=== PATIENT | female | born 1985 | race Caucasian/White ===

== ENCOUNTER 2022-01-27 14:31 | Outpatient (CLI) | payer BC, SELFPAY ==
--- NOTE | 2022-01-27 15:30 | MR_ITS ---
[address] [address] Phone:?[phone] Fax:?[phone] Referring Physician Information: Linda Wright [address] [facility] [address] Phone:?[phone] Fax:?[phone] Patient:?Luisa Rodriguez D.O.B:?1985 Sex:?Female Phone:?[phone] [facility] MRN:?[id number] Exam Date:?01/27/2022 ? EXAM: MRI of the LEFT ANKLE CLINICAL HISTORY: Left ankle pain. Fall off retaining wall injury 3 weeks ago. No history of previous surgery to the left ankle. COMPARISONS: None available. TECHNICAL: MRI sequences of the left ankle: Axials: PD, T2FS Coronals: PD, T2 Sagittals: PD, T2, STIR Sedation: None Contrast: None FINDINGS: Joints and osseous structures: There is edema-like signal within the medial malleolus and within the adjacent medial aspects of the talar body and neck best seen on sagittal series 5 images 9 through 15. No discrete fracture is seen. There is a large tibiotalar joint effusion with substantial synovitis. There is a moderate posterior subtalar joint effusion with substantial synovitis. No subluxation, dislocation, talar dome osteochondral lesion, or tarsal coalition is seen. Ligaments: Syndesmotic: The anterior inferior, posterior inferior tibiofibular, and inferior transverse ligaments are intact. Anterior talofibular: Complete tear best seen on axial series 3 and 4 images 16 through 19. Calcaneofibular: Essentially complete tear of the calcaneofibular ligament best seen on coronal series 8 images 21 through 26. Posterior talofibular: Intact. Deltoid: Ill-defined moderate grade partial tear of the deep layer of the deltoid ligament best seen on coronal series 8 and 9 images 19 through 23. Spring: Unremarkable. Sinus tarsi: Intact lateral cervical and medial interosseous ligaments. Bifurcate: Intact. Calcaneocuboid: Intact. Lisfranc ligament complex: Intact. Flexor tendons: Posterior tibial: Intact. There is a type I to II accessory navicular. Flexor digitorum longus: Intact. Flexor hallucis longus: Intact. Peroneal tendons: There is moderate tenosynovitis. No tendon rupture is seen. No lateral subluxation. Extensor tendons: Tibialis anterior: Intact. Extensor hallucis longus: Intact. Extensor digitorum longus: Intact. Achilles tendon: Intact. Plantar aponeurosis: Unremarkable. Sinus Tarsi:?The sinus tarsi fat is intact. Tarsal tunnel: Unremarkable. IMPRESSION: 1. Complete tears of the anterior talofibular and calcaneofibular ligaments. 2. Ill-defined moderate grade partial tear of the deep layer of the deltoid ligament. 3. Bone marrow contusions of the medial malleolus and of the adjacent medial aspects of the talar body and neck. 4. Moderate peroneal tenosynovitis. No rupture or lateral subluxation the peroneal tendons. 5. Large tibiotalar joint effusion with substantial synovitis and moderate posterior subtalar joint effusion with substantial synovitis. RCB Electronically signed on 01/28/2022 7:58:00 AM by Arvind Vasquez M.D.
--- OUTSIDE RECORDS SUMMARY | 2022-02-22 12:31 | XMS_ITS | Encounter Summary ---
:1985 Author Organization [facility] Address [address] [place] [address] Care Team Providers Name Role Phone Patricio Palmer M.D. Primary Care Provider Reason for Visit Outpatient (Routine) - Closed Specialty Diagnoses / Procedures Referred By Contact Refer red To Contact Neurology Diagnoses Epilepsy Seizure Not Intractable Without Status Epilepticus (HCC) Pietro Pickett M.D. [place] [address] [place], [place] [phone] Referral ID Status Reason Start Date Expiration Date Visits Requ ested Visits Authorized [id number] Closed 05/25/2021 05/25/2022 1 1 Encounter Details Date Type Department Care Team Description 06/09/2021 Telemedicine Department of Pietro Pickett Epilepsy S eizushay Not Neurology gavino Zuluaga M.D. Intractable Without [place], [place] [address] [place] Status Epilepticus [address] [place], [place] (HCC) [place] [phone] Social History Tobacco Use Types Packs/Day Years Used Date Smoking Tobacco: Every Day Cigarettes 0.5 20 Smokeless Tobacco: Never Alcohol Use Standard Drinks/Week Comments No 0 (1 standard drink = 0.6 oz pure alcoho l) Alcohol Habits Answer Date Recorded How often do you have a drink containing alcohol? Never 06/09/2021 How many drinks containing alcohol do you have on a typical Not asked day when you are drinking? How often do you have six or more drinks on one occasion? Ne omero 12/19/2018 Comment: Not asked Social Isolation Answer Date Recorded In a typical week, how many times do you More than three terry es a week 06/09/2021 talk on the phone with family, friends, or neighbors? How often do you get together with friends More than three t imes a week 06/09/2021 or relatives? How often do you attend spiritism or 1 to 4 times per year 05/18 taoism services? Do you belong to any clubs or No 06/09/2021 organizations such as spiritism groups, unions, fraternal or athletic groups, or school groups? How often do you attend meetings of the Never 06/09/2021 clubs or organizations you belong to? Are you now , , , 06/09/2021 , never or living with a partner? Physical Activity Answer Date Recorded On average, how many days per week do you engage in moderate to 3 days 06/09/2021 strenuous exercise (like walking fast, running, jogging, dancing, swimming, biking, or other activities that cause a light or heavy sweat)? On average, how many minutes do you engage in exercise at th is 30 min 06/09/2021 level? Stress Answer Date Recorded Do you feel stress - tense, restless, nervous, or Only a lit tle 06/09/2021 anxious, or unable to sleep at night because your mind is troubled all the time - these days? Financial Resource Strain Answer Date Recorded How hard is it for you to pay for the very basics like Not v julia hard 06/09/2021 food, housing, medical care, and heating? Intimate Partner Violence Answer Date Recorded Within the last year, have you been afraid of your partner o r No 04/20/2020 ex-partner? Within the last year, have you been humiliated or emotionall y No 04/20/2020 abused in other ways by your partner or ex-partner? Within the last year, have you been kicked, hit, slapped, or No 04/20/2020 otherwise physically hurt by your partner or ex-partner? Within the last year, have you been raped or forced to have any No 04/20/2020 kind of sexual activity by your partner or ex-partner? Food Insecurity Answer Date Recorded Within the past 12 months, you worried that your food would Never true 06/09/2021 run out before you got money to buy more. Within the past 12 months, the food you bought just didn't N ever true 06/09/2021 last and you didn't have money to get more. Transportation Needs Answer Date Recorded In the past 12 months, has lack of transportation kept you f rom No 06/09/2021 medical appointments or from getting medications? In the past 12 months, has lack of transportation kept you f rom No 06/09/2021 meetings, work, or getting things needed for daily living? Housing Stability Answer Date Recorded In the last 12 months, was there a time when you were not ab le No 06/09/2021 to pay the mortgage or rent on time? In the last 12 months, how many places have you lived? 2 06/09/2021 In the last 12 months, was there a time when you did not hav e a No 06/09/[address] to [address] or slept in a fci (including now)? Education Answer Date Recorded What is the highest level of school you have GED or equivale nt 12/19/2018 completed or the highest degree you have received? Sex Assigned at Date Recorded Female 06/09/2021 2:09 PM AIRCONDITIONING ENGINEER documented as of this encounter Progress Notes Pietro Pickett M.D. - 06/09/2021 2:00 PM CST Video Visit This visit was conducted with use of computer audio-visual technology in lieu of patient's ability to attend clinic. Provider was located at [facility] Patient was located in their home CHIEF COMPLAINT / REASON FOR VISIT Return to follow-up seizure disorder INTERIM HISTORY Patient is still having seizures since last visit. Holly is still experiencing seizures about once per month. She has bilateral tonic-clonic seizures that have no aura. These have resulted in lacerations but fortunately no fractures. They tend to occur in the evening after the kids are in bed and she is relaxing ironically. PHYSICAL EXAM: Alert and oriented, no aphasia, no acute distress REVIEW OF SYSTEMS Neurological: Positive for seizures. The following systems were negative: Constitutional, Skin, Eyes, ENT, CV, Respiratory, GI, , Hematologic, Musculoskeletal, Psych TEST RESULTS Blood tests: None this visit Other: None this visit ASSESSMENT / PLAN #1 Epilepsy Seizure Not Intractable Without Status Epilepticus (HCC) We had a long discussion today about possible options. When she was implanted for stereo EEG she wasfound to have widespread left hemispheric onset seizures. She however did respond to subthreshold stimulation. It was thought she would be a candidate for combined stimulation with CS CS plus thalamic DBS stimulation. While being considered for this she started using medical cannabis and improved significantly so this was put on hold. However her seizures have come back since then. PLAN: We had a long discussion about treatment options. A new medication, cenobamate/Xcopri is available now which could potentially be helpful for her seizures. I discussed side effects of it which include dizziness and tiredness, and need for slow titration due to potential risk of allergic reaction. Also discussed vagus nerve stimulation and deep brain stimulation. She will consider these and discuss these further with her . She will notify me if she wants to pursue either. I sent new prescriptions for her lacosamide and lamotrigine to her pharmacy of choice. TIME: Time spent face to face, coordinating care, counseling and performing clinical documentation was 35 minutes. ONDITIONING ENGINEER documented in this encounter Plan of Treatment Not on filedocumented as of this encounter Visit Diagnoses Diagnosis Epilepsy Seizure Not Intractable Without Status Epilepticus (HCC) documented in this encounter Care Teams Auto Vinyl Top Installer Relationship Specialty Start Date End Date Patricio Palmer M.D. PCP - General Family Medicine 12/18/[address] [place] [phone] documented as of this encounter
--- OUTSIDE RECORDS SUMMARY | 2022-02-22 12:31 | XMS_ITS | Encounter Summary ---
:1985 Author Organization [facility] Address [address] [place] [address] Care Team Providers Name Role Phone Patricio Palmer M.D. Primary Care Provider Encounter Details Date Type Department Care Team Description 05/27/2021 Orders Only Department [place] [address] [facility] [address] [place], [place] [address] [place], [place] [phone] (Wo rk) Social History Tobacco Use Types Packs/Day Years Used Date Smoking Tobacco: Every Day Cigarettes 0.5 Smokeless Tobacco: Never Alcohol Use Standard Drinks/Week [...] or relatives? How often do you attend hoahaoism or 1 to 4 times per year 05/18 denominational services? Do you belong to any clubs or No 06/09/2021 organizations such as hoahaoism groups, unions, fraternal or athletic groups, or [...] place to sleep or slept in a residential (including now)? Education Answer Date Recorded What is the highest level of school you have GED or equivale nt 12/19/2018 completed or the highest degree you have received? Sex Assigned at Date Recorded Female 06/09/2021 2:09 PM PLANT MAINTENANCE MECHANIC documented as of this encounter Plan of Treatment Not on filedocumented as of this encounter Visit Diagnoses Not on filedocumented in this encounter Additional Health Concerns Infection Onset Date Last Indicated Resolved Time COVID19 04/29/2021 04/29/2021 05/28/2021 4:49 AM PLANT MAINTENANCE MECHANIC documented as of this encounter Care Teams Insulation And Flooring Assembler Relationship Specialty Start Date End Date Patricio Palmer M.D. PCP - General Family Medicine 12/18/[address] [place] [phone] documented as of this encounter
--- OUTSIDE RECORDS SUMMARY | 2022-02-22 12:31 | XMS_ITS | Encounter Summary ---
:1985 Author Organization [facility] Address [address] [place] [address] Care Team Providers Name Role Phone Patricio Palmer M.D. Primary Care Provider Encounter Details Date Type Department Care Team Description 05/26/2021 Orders Only Pharmacy Prior Auth RO Elsewhere, Pcp [phone] Social History Tobacco Use Types Packs/Day Years [...] or relatives? How often do you attend mormon or 1 to 4 times per year 05/18 advent services? Do you belong to any clubs or No 06/09/2021 organizations such as mormon groups, unions, fraternal or athletic groups, or [...] place to sleep or slept in a [facility] (including now)? Education Answer Date Recorded What is the highest level of school you have GED or equivale nt 12/19/2018 completed or the highest degree you have received? Sex Assigned at Date Recorded Female 06/09/2021 2:09 PM BACTERIOLOGIST SOIL documented as of this encounter Plan of Treatment Not on filedocumented as of this encounter Visit Diagnoses Not on filedocumented in this encounter Additional Health Concerns Infection Onset Date Last Indicated Resolved Time COVID19 04/29/2021 04/29/2021 05/28/2021 4:49 AM BACTERIOLOGIST SOIL documented as of this encounter Care Teams Waxer Tender Relationship Specialty Start Date End Date Patricio Palmer M.D. PCP - General Family Medicine 12/18/[address] [place], [place] [address] [phone] documented as of this encounter
--- OUTSIDE RECORDS SUMMARY | 2022-02-22 12:31 | XMS_ITS | Encounter Summary ---
:1985 Author Organization [facility] Address [address] [place] [address] Care Team Providers Name Role Phone Patricio Palmer M.D. Primary Care Provider Encounter Details Date Type Department Care Team Description 05/12/2021 Immunization Department of Patricia Welch M.D. Medicine, [facility], in [address] [place] [phone] [place] [address] [place] [phone] Social History Tobacco Use Types Packs/Day Years [...] or relatives? How often do you attend caodaism or 1 to 4 times per year 05/18 bahai services? Do you belong to any clubs or No 06/09/2021 organizations such as caodaism groups, unions, fraternal or athletic groups, or [...] place to sleep or slept in a prison (including now)? Education Answer Date Recorded What is the highest level of school you have GED or equivale nt 12/19/2018 completed or the highest degree you have received? Sex Assigned at Date Recorded Female 06/09/2021 2:09 PM BLAST FURNACE SUPERVISOR documented as of this encounter Plan of Treatment Not on filedocumented as of this encounter Visit Diagnoses Not on filedocumented in this encounter Additional Health Concerns Infection Onset Date Last Indicated Resolved Time COVID19 04/29/2021 04/29/2021 05/19/2021 4:45 AM CDT documented as of this encounter Care Teams Time Clock Repairer Relationship Specialty Start Date End Date Patricio Palmer M.D. PCP - General Family Medicine 12/18/[address] [place] [phone] documented as of this encounter
--- OUTSIDE RECORDS SUMMARY | 2022-02-22 12:31 | XMS_ITS | Encounter Summary ---
:1985 Author Organization [facility] Address [address] [place] [address] Care Team Providers Name Role Phone Patricio Palmer M.D. Primary Care Provider Encounter Details Date Type Department Care Team Description 05/28/2021 Orders Only Pharmacy Prior Auth RO Patricio Palmer M.D. [phone] [place] [phone] (Wo rk) Social History Tobacco Use Types [...] or relatives? How often do you attend jainism or 1 to 4 times per year 05/18 cheondoism services? Do you belong to any clubs or No 06/09/2021 organizations such as jainism groups, unions, fraternal or athletic groups, or [...] place to sleep or slept in a intermediate (including now)? Education Answer Date Recorded What is the highest level of school you have GED or equivale nt 12/19/2018 completed or the highest degree you have received? Sex Assigned at Date Recorded Female 06/09/2021 2:09 PM PLATFORM ENGINEER documented as of this encounter Plan of Treatment Not on filedocumented as of this encounter Visit Diagnoses Not on filedocumented in this encounter Additional Health Concerns Infection Onset Date Last Indicated Resolved Time COVID19 04/29/2021 04/29/2021 05/28/2021 4:49 AM PLATFORM ENGINEER documented as of this encounter Care Teams Roller Skate Assembler Relationship Specialty Start Date End Date Patricio Palmer M.D. PCP - General Family Medicine 12/18/[address] [place] [phone] documented as of this encounter
--- OUTSIDE RECORDS SUMMARY | 2022-02-22 12:31 | XMS_ITS | Encounter Summary ---
:1985 Author Organization [facility] Address [address] [place] [address] Care Team Providers Name Role Phone Patricio Palmer M.D. Primary Care Provider Encounter Details Date Type Department Care Team Description 06/01/2021 Hospital Encounter Department of Pietro Pickett epsmaru Seizure Not Laboratory Medicine Pippa Zuluaga Intractable Without in [place], [address] [facility] Status Epilepticus [place], [place] ([facility]) [address] [facility] [address] [place], [place] [phone] (Work) [phone] Social History Tobacco Use Types Packs/Day Years [...] or relatives? How often do you attend cheondoism or 1 to 4 times per year 05/18 rastafarian services? Do you belong to any clubs or No 06/09/2021 organizations such as cheondoism groups, unions, fraternal or athletic groups, or [...] place to sleep or slept in a halfway (including now)? Education Answer Date Recorded What is the highest level of school you have GED or equivale nt 12/19/2018 completed or the highest degree you have received? Sex Assigned at Date Recorded Female 06/09/2021 2:09 PM BOTTLER documented as of this encounter Medications at Time of Discharge Medication Sig Dispensed Refills Start Date End Date ACETAMINOPHEN ORAL Take 500 mg by mouth 0 016 as needed. Takes 4 tablet (2,000mg total) by mouth as needed for headaches albuterol (ProAir HFA) Inhale 2 puffs every 25.5 g 3 08/2019 90 mcg/actuation inhaler 4 (four) hours as needed for wheezing or shortness of breath. cyclobenzaprine Take 1 tablet (10 mg 15 tablet 0 09/01/2020 (FLEXERIL) 10 mg tablet total) by mouth at bedtime as needed for muscle spasms for up to 20 days. ibuprofen (ADVIL,MOTRIN) Take 1 tablet (800 90 tablet 0 800 mg tablet mg total) by mouth 3 (three) times a day as needed for pain (pain). lamoTRIgine (LaMICtal) Take 2 tablets (200 120 tablet 5 07/18 100 mg tablet mg total) by mouth 2 (two) times a day. medical cannabis capsule Take by mouth as needed. Pt does not know do [place] 0 THC component: mg CBD component: mg SUMAtriptan (IMITREX) 50 Take 1 tablet (50 mg 9 tablet 5 0 12/19/2018 mg tablet total) by mouth once as needed for migraine for up to 1 dose. May repeat one time after 2 hours if needed. amoxicillin-pot Take 1 tablet by 20 tablet 0 03/30/2021 clavulanate (AUGMENTIN) mouth 2 (two) times 875-125 mg per tablet a day. lacosamide (Vimpat) 100 Take 1 tablet (100 60 tablet 3 11/03/202106/09/2021 mg tabletIndications: mg total) by mouth 2 Epilepsy Seizure Not (two) times a day. Intractable Without Status Epilepticus (HCC) lamoTRIgine (LaMICtal) Take 200 mg by mouth 11 06/09/2021 100 mg tablet 2 (two) times a day. lamoTRIgine (LaMICtal) TAKE 2 TABLETS (200 360 tablet 3 07/1806/09/2021 100 mg tablet MG TOTAL) BY MOUTH 2 (TWO) TIMES A DAY. mupirocin (BACTROBAN) 2 Apply 1 application 10 g 0 01/202006/04/2021 % nasal ointment to each nostril 2 (two) times a day. 1/2 tube each nostril twice daily. Press and massage after applying naproxen (NAPROSYN) 500 Take 1 tablet (500 20 tablet 0 01/202006/04/2021 mg tablet mg total) by mouth 2 (two) times a day with meals for 10 days. documented as of this encounter Plan of Treatment Not on filedocumented as of this encounter Procedures Procedure Name Priority Date/Time Associated Diagnosis Comme nts LACOSAMIDE, S Routine 06/01/2021 8:57 AM Epilepsy Seizure Not Results for this BOTTLER Intractable Without procedur e are in Status Epilepticus the resul ts (HCC) section. documented in this encounter Results Lacosamide (Vimpat), Level (06/01/2021 8:57 AM BOTTLER) P athologist Signature Lacosamide, S 9.6 1.0 - 10.0 06/02/2021 SDSC mcg/mL 10:14 AM BOTTLER Comment: ----ADDITIONAL INFORMATION---- This test was developed and its performa nce characteristics determined by [facility] in a manner consistent with CLIA requirements. This test has not been cleared or approved by the [place] and Drug Administration. Specimen Anatomical Collection Method Collection Time Receive d Time (Source) Location / / Volume Laterality Blood (Blood, 06/01/2021 8:57 AM 06/02/20 21 7:39 Venous) BOTTLER AM BOTTLER Pietro Pickett M.D. LAB BLOOD NON ADD-ON Performing Organization Address City/State/ZIP Code Phon e Number [facility] [address] [place], [place] [address] [address] [facility] [place] [address] Laboratory Medicine and Pathology [address] [place] documented in this encounter Visit Diagnoses Diagnosis Epilepsy Seizure Not Intractable Without Status Epilepticus (HCC) documented in this encounter Care Teams Alarm Signaler Relationship Specialty Start Date End Date Patricio Palmer M.D. PCP - General Family Medicine 12/18/[address] [place] [phone] documented as of this encounter
--- OUTSIDE RECORDS SUMMARY | 2022-02-22 12:31 | XMS_ITS | Encounter Summary ---
:1985 Author Organization [facility] Address [address] [place] [address] Care Team Providers Name Role Phone Patricio Palmer M.D. Primary Care Provider Reason for Referral Outpatient (Routine) - Closed Specialty Diagnoses / Procedures Referred By Contact Refer red To Contact Neurology Diagnoses Epilepsy Seizure Not Intractable Without Status Epilepticus (HCC) Pietro Pickett M.D. [facility] [address] [place] [address] Referral ID Status Reason Start Date Expiration Date Visits Requ ested Visits Authorized [id number] Closed 05/25/2021 05/25/2022 1 1 FACTURING CONTROLLER Reason for Visit Reason Comments Med Refill Encounter Details Date Type Department Care Team Description 05/25/2021 Refill Department of Family Medicine, Patricio Villasenor M.D. [facility] [address] [phone] [place] [address] [place] [address] [phone] Social History Tobacco Use Types Packs/Day Years [...] or relatives? How often do you attend faith or 1 to 4 times per year 05/18 evangelical services? Do you belong to any clubs or No 06/09/2021 organizations such as faith groups, unions, fraternal or athletic groups, or [...] at Date Recorded Female 06/09/2021 2:09 PM MANUFACTURING CONTROLLER documented as of this encounter Plan of Treatment Scheduled Referrals Name Type Priority Associated Diagnoses Order S [facility] Neurology office Outpatient Referral Routine Epilepsy Seizure Not Expected: visit (clinic) Intractable Without 2020 Status Epilepticus (Approxim ate), ([facility]) Expires: 05/25/2024 documented as of this encounter Results Lacosamide (Vimpat), Level (06/01/2021 8:57 AM MANUFACTURING CONTROLLER) athologist Signature Lacosamide, S 9.6 1.0 - 10.0 06/02/2021 SDSC mcg/mL 10:14 AM MANUFACTURING CONTROLLER Comment: ----ADDITIONAL INFORMATION---- This test was developed and its performa nce characteristics determined by [facility] in a manner consistent with CLIA requirements. This test has not been cleared or approved by the [place] and Drug Administration. Specimen Anatomical Collection Method Collection Time Receive d Time (Source) Location / / Volume Laterality Blood (Blood, 06/01/2021 8:57 AM 06/02/20 7:39 Venous) MANUFACTURING CONTROLLER AM MANUFACTURING CONTROLLER Pietro Pickett M.D. LAB BLOOD NON ADD-ON Performing Organization Address City/State/ZIP Code Phon e Number [facility] [address] [place] [address] [facility] [place] [address] Laboratory Medicine and Pathology [address] [place] documented in this encounter Visit Diagnoses Diagnosis Epilepsy Seizure Not Intractable Without Status Epilepticus (HCC) documented in this encounter Care Teams Real Estate Processor Relationship Specialty Start Date End Date Patricio Palmer M.D. PCP - General Family Medicine 12/18/[address] [place] [phone] documented as of this encounter
--- OUTSIDE RECORDS SUMMARY | 2022-02-22 12:31 | XMS_ITS | Encounter Summary ---
:1985 Author Organization [facility] Address [address] [place] [address] Care Team Providers Name Role Phone Patricio Palmer M.D. Primary Care Provider Encounter Details Date Type Department Care Team Description 05/24/2021 Orders Only Department [place] [address] [facility] [address] [place], [place] [address] [place], [place] [phone] (Wo rk) Social History Tobacco Use Types [...] 1 to 4 times per year 05/18 caodaism services? Do you belong to any clubs [...] place to sleep or slept in a penitentiary (including now)? Education Answer Date Recorded What is the highest level of school you have GED or equivale nt 12/19/2018 completed or the highest degree you have received? 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 PCP - General Family Medicine 12/18/[address] [place] [phone] documented as of this encounter
--- OUTSIDE RECORDS SUMMARY | 2022-02-22 12:31 | XMS_ITS | Encounter Summary ---
:1985 Author Organization [facility] Address [address] [place] [address] Care Team Providers Name Role Phone Patricio Palmer M.D. Primary Care Provider Reason for Visit Reason Comments Pre-visit Intake Encounter Details Date Type Department Care Team Description 06/04/2021 Clinical Communication Visit Review in Pr e-visit Intake [place], [place] [address] [place] [address] Social History Tobacco Use Types Packs/Day Years [...] or relatives? How often do you attend yarsanism or 1 to 4 times per year 05/18 shinto services? Do you belong to any clubs or No 06/09/2021 organizations such as yarsanism groups, unions, fraternal or athletic groups, or [...] at Date Recorded Female 06/09/2021 2:09 PM PLACING JUDGE documented as of this encounter Plan of Treatment Not on filedocumented as of this encounter Visit Diagnoses Not on filedocumented in this encounter Care Teams Waxer Tender Relationship Specialty Start Date End Date Patricio Palmer M.D. PCP - General Family Medicine 12/18/[address] [place] [phone] documented as of this encounter
--- OUTSIDE RECORDS SUMMARY | 2022-02-22 12:31 | XMS_ITS | Encounter Summary ---
:1985 Author Organization [facility] Address [address] [place] [address] Care Team Providers Name Role Phone Patricio Palmer M.D. Primary Care Provider Reason for Visit Reason Comments Patient Education Encounter Details Date Type Department Care Team Description 05/01/2021 Clinical Department of Yaritza Baca Patient Ed ucation Communication [facility] I., R.N. in [address] [place] [phone] Social History Tobacco Use Types Packs/Day Years [...] or relatives? How often do you attend alevism or 1 to 4 times per year 05/18 adventist services? Do you belong to any clubs or No 06/09/2021 organizations such as alevism groups, unions, fraternal or athletic groups, or [...] place to sleep or slept in a skilled nursing (including now)? Education Answer Date Recorded What is the highest level of school you have GED or equivale nt 12/19/2018 completed or the highest degree you have received? 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 PCP - General Family Medicine 12/18/[address] [place] [address] [place] [phone] documented as of this encounter
--- OUTSIDE RECORDS SUMMARY | 2022-02-22 12:31 | XMS_ITS | Encounter Summary ---
:1985 Author Organization [facility] Address [address] [place] [address] Care Team Providers Name Role Phone Patricio Palmer M.D. Primary Care Provider Encounter Details Date Type Department Care Team Description 12/21/2021 Orders Only [facility] Mirian Tobar, Screening Lipid D.O., M.B.A. [address] [place] [phone] (Wo rk) Social History Tobacco Use Types [...] place to sleep or slept in a alf (including now)? Education Answer Date Recorded What is the highest level of school you have GED or equivale nt 12/19/2018 completed or the highest degree you have received? 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 PCP - General Family Medicine 12/18/[address] [place] [phone] documented as of this encounter
--- OUTSIDE RECORDS SUMMARY | 2022-02-22 12:31 | XMS_ITS | Encounter Summary ---
:1985 Author Organization [facility] Address [address] [place] [address] Care Team Providers Name Role Phone Patricio Palmer M.D. Primary Care Provider Encounter Details Date Type Department Care Team Description 05/25/2021 Orders Only Pharmacy Prior Auth RO Patricio Palmer M.D. [phone] [place] [phone] (Wo rk) Social History Tobacco [...] or relatives? How often do you attend religion or 1 to 4 times per year 05/18 congregation services? Do you belong to any clubs or No 06/09/2021 organizations such as religion groups, unions, fraternal or athletic groups, or [...] place to sleep or slept in a senior care (including now)? Education Answer Date Recorded What is the highest level of school you have GED or equivale nt 12/19/2018 completed or the highest degree you have received? Sex Assigned at Date Recorded Female 06/09/2021 2:09 PM MANAGER ORACLE RETAIL documented as of this encounter Plan of Treatment Not on filedocumented as of this encounter Visit Diagnoses Not on filedocumented in this encounter Additional Health Concerns Infection Onset Date Last Indicated Resolved Time COVID19 04/29/2021 04/29/2021 05/28/2021 4:49 AM MANAGER ORACLE RETAIL documented as of this encounter Care Teams Brim Raiser Relationship Specialty Start Date End Date Patricio Palmer M.D. PCP - General Family Medicine 12/18/[address] [place] [phone] documented as of this encounter
--- OUTSIDE RECORDS SUMMARY | 2022-02-22 12:31 | XMS_ITS | Clinical Summary ---
:1985 Author Organization [facility] Address [address] [place] [address] Care Team Providers Name Role Phone Patricio Palmer M.D. Primary Care Provider Source Comments Patient records contain information from all sites at [facility]. For routine questions regarding patient records, call [phone] during business hours, M-F 8:00 AM - 5:00 PM Central Time. Record requests for emergency care only can be directed to [phone] at any time.[facility] Allergies Active Allergy Reactions Severity Noted Date Comments Tramadol Hives, Rash 08/19/2016 Medications Medication Sig Dispensed Refills Start Date End Date Status ACETAMINOPHEN ORAL Take 500 mg by 0 11/16/2015 Active mouth as needed. Takes 4 tablet (2,000mg total) by mouth as needed for headaches lamoTRIgine (LaMICtal) Take 2 tablets 120 tablet 5 08/10/2018 Active 100 mg tablet (200 mg total) by mouth 2 (two) times a day. SUMAtriptan (IMITREX) Take 1 tablet 9 tablet 5 12/19/2018 Active 50 mg tablet (50 mg total) by mouth once as needed for migraine for up to 1 dose. May repeat one time after 2 hours if needed. medical cannabis Take by mouth as needed. Pt does not know dosage 0 Active capsule THC component: mg CBD component: mg albuterol (ProAir HFA) Inhale 2 puffs 25.5 g 3 09/16/2019 Active 90 mcg/actuation every 4 (four) inhaler hours as needed for wheezing or shortness of breath. ibuprofen Take 1 tablet 90 tablet 0 11/05/2019 Activ e (ADVIL,MOTRIN) 800 mg (800 mg total) tablet by mouth 3 (three) times a day as needed for pain (pain). cyclobenzaprine Take 1 tablet 15 tablet 0 09/01/2020 Active (FLEXERIL) 10 mg (10 mg total) by tablet mouth at bedtime as needed for muscle spasms for up to 20 days. lamoTRIgine (LaMICtal) Take 2 tablets 120 tablet 11 06/09/2021 06/09/2022 Active 100 mg (200 mg total) tabletIndications: by mouth 2 (two) Epilepsy Seizure Not times a day. Intractable Without Status Epilepticus (HCC) lacosamide (VIMPAT) TAKE 1 TABLET 60 tablet 5 11/24/202105/23 Active 100 mg (100 MG TOTAL) tabletIndications: BY MOUTH 2 (TWO) Epilepsy Seizure Not TIMES A DAY. 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 Localized Onset Intractable Without Status Epilepticus Overview: Added automatically from request for clarita alem [id number] Nicotine Dependence Cigarettes 01/06/2012 Alcoholism And Drug Addiction In Family 01/06/2012 Overview: Mother Other Psychoactive Substance Mild Use Disorder (Abuse) In Remission 02/19/2007 Overview: Overview: Last use 2002 Resolved Problems Problem Noted Date Resolved Date Epilepsy And Recurrent Seizures NOS 09/24/2018 06/11/2018 Epilepsy Seizure Not Intractable Without Status Epilepticus 08/10/2018 12/19/2018 Overview: Added automatically from request for clarita alem [id number] Focal Epilepsy Symptomatic Intractable Without Status 201712/19/2018 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 Screening Lipid 11/24/2021 Refill Neurology Pietro Pickett M.D. Med Refill from Last 3 Months Immunizations Name Administration Dates Next Due Influenza, Unspecified 05/26/2008 Td (Adult), adsorbed 03/07/2003 Td Preservative Free (TENIVAC, 01/21/2020 DECAVAC) Tdap 09/24/2014, 10/26/2012, 01/22/2011, 03/07/2003 influenza vaccine quad 05/12/2021, 05/18/2020, 09/20/2019 (FLUZONE/FLUARIX) (6 months and older)(PF) Family History Medical History Relation Name Comments Alcohol abuse Brother Alvaro Seizures Brother Alvaro Alcohol abuse Mother Mary hernández Seizures Mother Mary hernández Relation Name Status Comments Brother Alvaro Alive Mother Mary hernández Alive Social History Tobacco Use Types Packs/Day Years Used Date Smoking Tobacco: Every Day Cigarettes 0.5 20 Smokeless Tobacco: Never Tobacco Cessation: Ready to Quit: No; Co unseling Given: No Alcohol Use Standard Drinks/Week Comments No 0 [...] or relatives? How often do you attend sabianist or 1 to 4 times per year 05/18 orthodoxy services? 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 Last Filed Vital Signs Vital Sign Reading Time Taken Comments Blood Pressure 112/76 07/31/2020 10:37 AM ASSOCIATE SALES MANAGER Pulse 80 09/01/2020 9:21 AM ASSOCIATE SALES MANAGER Temperature 36.9 ??C (98.4 ??F) 09/01/2020 9:21 AM ASSOCIATE SALES MANAGER Respiratory Rate 16 07/31/2020 10:37 AM ASSOCIATE SALES MANAGER Oxygen Saturation 98% 01/21/2020 7:07 PM CDT Inhaled Oxygen Concentration - - Weight 63.2 kg (139 lb 5.3 oz) 09/01/2020 9:21 AM ASSOCIATE SALES MANAGER Height 157.5 cm (5' 2) 09/01/2020 9:21 AM ASSOCIATE SALES MANAGER Body Mass Index 25.48 09/01/2020 9:21 AM ASSOCIATE SALES MANAGER Plan of Treatment Health Maintenance Due Date Last Done Comments Hepatitis B Vaccines (1 of 3 - 1985 3-dose series) Hepatitis C Screening 1985 COVID-19 Vaccine (#1) 1984 Hepatitis A Vaccines (1 of 2 - 01/14/1985 Risk 2-dose series) Pneumococcal vaccine (0-64 years) 01/14/1990 (1 - PCV) Cervical Cancer Screening 10/16/2019 10/15/2014 (Performed elsewhere), 04/04/2012 Fasting Lipid Panel 11/05/2020 11/06/2015 Tobacco Cessation counseling 04/20/2021 04/20/2020 Depression Screening (Annual 07/17/2021 PHQ-2) Influenza Vaccine (#1) 2022 05/12/2021, 05/18/2020, 09/20/2019, Additional history exists DTaP,Tdap,and Td Vaccines (5 - Td 01/20/2030 01/21/2020, , or Tdap) 10/26/2012, Additional history exists HIV Screening Completed 02/18/2017, 06/03/2014, 09/23/2013, Additional history exists Medical Devices Explanted Type Area Workforce Planning Analyst Device Identifier Shelf Model / Expiration Serial / Date Lot Elctrd Eeg 16 Contct 54.5 - [id number] - [id number] Electrode [facility] Corporation [id number] 08/30/202216 / Implanted: Qty: 1 on 09/24/2018 by Zan Wise M.D. at [facility] [id number] / Explanted: Qty: 1 on 09/30/2018 at [facility] [id number] Insurance Payer Benefit Plan Subscriber ID Effective Phone Address Typ e / Group Dates BLUE CROSS BCBS BLUE [id number] 2021-Pres ATTN: Radha hassan HMO BLUE SHIELD PLUS HMO ent CONSUMER [facility] [place] [address] [address] [place] [address] Advance Directives For more information, please contact: [phone] Latest Code Status on File Code Status Date Activated Date Inactivated Comments Full Code 09/24/2018 1:39 PM 10/01/2018 12:45 PM Full Code: Not Discussed Due to: Patient not available Full Code 04/12/2018 3:23 PM 04/17/2018 2:55 PM Full Code: Discussed Care Teams Director Of Undergraduate Admissions Relationship Specialty Start Date End Date Patricio Palmer M.D. PCP - General Family Medicine 12/18/[address] [place] [address] EMEKA Davidson [phone]
--- OUTSIDE RECORDS SUMMARY | 2022-02-22 12:31 | XMS_ITS | Encounter Summary ---
:1985 Author Organization [facility] Address [address] [place] [address] Care Team Providers Name Role Phone Patricio Palmer M.D. Primary Care Provider Encounter Details Date Type Department Care Team Description 10/29/2021 Orders Only Department of Family Suad Avendano AP RN, Medicine, [facility], in C.N[facility] P., M.S.N. [address] [place] [address] [place] [address] [phone] Social History Tobacco Use Types Packs/Day Years [...] or relatives? How often do you attend congregational or 1 to 4 times per year 05/18 amish services? Do you belong to any clubs or No 06/09/2021 organizations such as congregational groups, unions, fraternal or athletic groups, or [...] place to sleep or slept in a fpc (including now)? Education Answer Date Recorded What is the highest level of school you have GED or equivale nt 12/19/2018 completed or the highest degree you have received? 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 PCP - General Family Medicine 12/18/[address] [place] [phone] documented as of this encounter
--- OUTSIDE RECORDS SUMMARY | 2022-02-22 12:31 | XMS_ITS | Encounter Summary ---
:1985 Author Organization [facility] Address [address] [place] [address] Care Team Providers Name Role Phone Patricio Palmer M.D. Primary Care Provider Encounter Details Date Type Department Care Team Description 05/27/2021 Orders Only Pharmacy Prior Auth RO Elsewhere, Pcp [phone] Social History Tobacco Use Types Packs/Day Years [...] or relatives? How often do you attend sikh or 1 to 4 times per year 05/18 quaker services? Do you belong to any clubs or No 06/09/2021 organizations such as sikh groups, unions, fraternal or athletic groups, or [...] place to sleep or slept in a correction (including now)? Education Answer Date Recorded What is the highest level of school you have GED or equivale nt 12/19/2018 completed or the highest degree you have received? 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 PCP - General Family Medicine 12/18/[address] [place], [place] [address] [place] [phone] documented as of this encounter
--- OUTSIDE RECORDS SUMMARY | 2022-02-22 12:31 | XMS_ITS | Encounter Summary ---
:1985 Author Organization [facility] Address [address] [place] [address] Care Team Providers Name Role Phone Patricio Palmer M.D. Primary Care Provider Reason for Visit Reason Onset Date Comments Testing For Upper Respiratory Virus Symptoms 04/29/2021 Encounter Details Date Type Department Care Team Description 04/29/2021 External Outreach Department of [facility] Juan Bhakta ntact With And Medicine in [place] M.D. (Suspected) [address] To COVID-19 (Primary [address] [place] Dx) JUAN [address] [address] [place], [place] [phone] (Work) [phone] Social History Tobacco Use Types Packs/Day Years [...] or relatives? How often do you attend scientologist or 1 to 4 times per year 05/18 judaism services? Do you belong to any clubs or No 06/09/2021 organizations such as scientologist groups, unions, fraternal or athletic groups, or [...] place to sleep or slept in a half-way (including now)? Education Answer Date Recorded What is the highest level of school you have GED or equivale nt 12/19/2018 completed or the highest degree you have received? Sex Assigned at Date Recorded Female 06/09/2021 2:09 PM EDGING CATCHER documented as of this encounter Progress Notes Mely Aceves R.MBreanna. - 04/29/2021 11:34 AM CDT Encounter created for symptomatic infectious disease screening with possible COVID, Influenza, RSV, and/or Group A Strep testing. documented in this encounter Miscellaneous Notes Result Encounter Note - Domenica Heredia R.N. - 05/27/2021 11:30 AM EDGING CATCHER The patient will be contacted if they are eligible for Monoclonal Antibody Infusion (MASS 1 or greater) and/or Remote Patient Monitoring (MASS 3 or greater). The [place] Team ([facility]) sends general guidance about COVID-19 to all patients by letter or portal, except when a patient is hospitalized or resides in a jail. CCT will call all adult patients at highest risk for severe complications of COVID-19 (MASS 3 or greater), those without an online services account, and those who require an mounter clarinets. Any patient with a MASS score 1 or greater or a COVID-19 score 1 or greater may be at higher risk ofsevere disease. These patients will follow up directly with primary care. The primary care team willdecide if the patient needs a phone call or a follow up portal message to assess symptom severity, provide individualized guidance on symptom monitoring or symptom management, or to reinforce when to se ek care. M[facility] encourages patients to follow up with their PCP with questions, worsening symptoms, or for symptom management. For questions, contact the [place] ([facility]): Pager: [phone] In basket: P RST/[facility]S COVID-19 POSITIVE Covid Care e-consult Components of the Monoclonal Antibody Selection Score (MASS) Compromised Immune System/Transplant = 4 points Chronic Kidney Disease on Dialysis = 4 points Age greater than or equal to 55 and chronic pulmonary disease = 3 points Age greater than or equal to 65 = 2 points Age greater than or equal to = 2 points Diabetes = 2 points Age greater than or equal to 55 AND cardiovascular disease = 2 points Age greater than or equal to 55 and hypertension = 1 point NOTE: At the time of testing, patients are instructed to obtain the result by calling the Categorical result line or by checking the online services account. NG CATCHER Result Encounter Note - Domenica Heredia R.N. - 04/30/2021 10:06 AM CDT The patient will be contacted if they are eligible for Monoclonal Antibody Infusion (MASS 1 or greater) and/or Remote Patient Monitoring (MASS 3 or greater). The [place] [facility] ([facility]) sends general guidance about COVID-19 to all patients by letter or portal, except when a patient is hospitalized or resides in a jail. M[facility] will call all adult patients at highest risk for severe complications of COVID-19 (MASS 3 or greater), those without an online services account, and those who require an mounter clarinets. Any patient with a MASS score 1 or greater or a COVID-19 score 1 or greater may be at higher risk ofsevere disease. These patients will follow up directly with primary care. The primary care team willdecide if the patient needs a phone call or a follow up portal message to assess symptom severity, provide individualized guidance on symptom monitoring or symptom management, or to reinforce when to se ek care. MWC[facility] encourages patients to follow up with their PCP with questions, worsening symptoms, or for symptom management. For questions, contact the [facility] ([facility]): Pager: [phone] In basket: P RST/[facility]S COVID-19 POSITIVE Covid Care e-consult Components of the Monoclonal Antibody Selection Score (MASS) Compromised Immune System/Transplant = 4 points Chronic Kidney Disease on Dialysis = 4 points Age greater than or equal to 55 and chronic pulmonary disease = 3 points Age greater than or equal to 65 = 2 points Age greater than or equal to = 2 points Diabetes = 2 points Age greater than or equal to 55 AND cardiovascular disease = 2 points Age greater than or equal to 55 and hypertension = 1 point NOTE: At the time of testing, patients are instructed to obtain the result by calling the Categorical result line or by checking the online services account. documented in this encounter Plan of Treatment Not on filedocumented as of this encounter Procedures Procedure Name Priority Date/Time Associated Diagnosis Comme nts SARS CORONAVIRUS-2 Routine 04/29/2021 11:36 AM Contact With An d Results for this RNA, V CDT (Suspected) Exposure procedu re are in To COVID-19 the results section. documented in this encounter Results (ABNORMAL) SARS Coronavirus-2 RNA, V Symptomatic (04/29/2021 11:36 AM CDT) [facility] Method Time Signature SARS-CoV-2 Swab, 04/30/2021 MKTO Specimen Nasopharynx 1:12 AM CDT Source SARS CoV-2 Detected (A) Undetected 04/30/2021 MKTO RNA, TMA 1:12 AM CDT Comment: SARS-CoV-2 RNA present. ----ADDITIONAL INFORMATION---- This molecular amplification test was pe rformed using the Aptima SARS-CoV-2 assay ([employer] on the [place] tem under emergency use authorization (EUA) by the U.S. Food and Drug Administ ration. Fact sheets for this EUA assay can be fo und at the following links: For Healthcare Providers: https://www.fd a.gov/media/605120/download For Patients: https://www.fda.gov/media/ 575475/download Specimen Anatomical Collection Method Collection Time Receive d Time (Source) Location / / Volume Laterality Varies 04/29/2021 11:36 04/29/2021 3:56 (Nasopharynx) AM CDT PM CDT Yeison Bhakta M.D. LAB MICROBIOLOGY - GENERAL O RDERABLES Performing Organization Address City/[facility]/ZIP Code Phon e Number [employer]- [address] [place] [id number] [place] [address] System in [place] [address] [place] [address] documented in this encounter Visit Diagnoses Diagnosis Contact With And (Suspected) Exposure To COVID-19 - Primary documented in this encounter Additional Health Concerns Infection Onset Date Last Indicated Resolved Time COVID19 Pending 04/29/2021 04/29/2021 04/30/2021 1:13 AM CDT documented as of this encounter Care Teams Digester Relationship Specialty Start Date End Date Patricio Palmer M.D. PCP - General Family Medicine 12/18/[address] [place] [phone] documented as of this encounter
--- OUTSIDE RECORDS SUMMARY | 2022-02-22 12:31 | XMS_ITS | Encounter Summary ---
:1985 Author Organization [facility] Address [address] [place] [address] Care Team Providers Name Role Phone Patricio Palmer M.D. Primary Care Provider Reason for Visit Reason Comments [facility] Encounter Details Date Type Department Care Team Description 05/24/2021 Clinical Communication Department of [facility] Neurology in Pietro Zuluaga M.D. (Piyush) [place], [facility] [address] [place], [place] [address] [facility] [address] [place], [place] [phone] (Work) [phone] Social History Tobacco Use Types Packs/Day Years [...] or relatives? How often do you attend denominational or 1 to 4 times per year 05/18 muslim services? Do you belong to any clubs or No 06/09/2021 organizations such as denominational groups, unions, fraternal or athletic groups, or [...] to sleep or slept in a senior living (including now)? Education Answer Date Recorded What is the highest level of school you have GED or equivale nt 12/19/2018 completed or the highest degree you have received? Sex Assigned at Date Recorded Female 06/09/2021 2:09 PM ENTERTAINMENT REPORTER documented as of this encounter Miscellaneous Notes Telephone Encounter - Corie Arndt - 05/24/2021 3:33 PM CST Received PA request for Vimpat 100 mg tablets, electronically sent to OPPA team RTAINMENT REPORTER documented in this encounter Plan of Treatment Not on filedocumented as of this encounter Visit Diagnoses Not on filedocumented in this encounter Care Teams Oncology Consultant Relationship Specialty Start Date End Date Patricio Palmer M.D. PCP - General Family Medicine 12/18/[address] [place] [phone] documented as of this encounter
--- OUTSIDE RECORDS SUMMARY | 2022-02-22 12:31 | XMS_ITS | Encounter Summary ---
:1985 Author Organization [facility] [place] [facility] Address [address] [place] [address] Care Team Providers Name Role Phone Patricio Palmer M.D. Primary Care Provider Reason for Visit Reason Comments Med Refill Encounter Details Date Type Department Care Team Description 11/24/2021 Refill Department of Neurology in Lina Pietro sheikh M.D. Med Refill [place], [place] [address] [facility] [address] [place] [address] [place] [address] [phone] Social History Tobacco Use Types Packs/Day Years [...] or relatives? How often do you attend mormonism or 1 to 4 times per year 05/18 rastafari services? Do you belong to any clubs or No 06/09/2021 organizations such as mormonism groups, unions, fraternal or athletic groups, or [...] at Date Recorded Female 06/09/2021 2:09 PM OPERATIONS AND MAINTENANCE MANAGER documented as of this encounter Plan of Treatment Not on filedocumented as of this encounter Visit Diagnoses Diagnosis Epilepsy Seizure Not Intractable Without Status Epilepticus (HCC) documented in this encounter Care Teams Grinder Set Up Operator Surface Relationship Specialty Start Date End Date Patricio Palmer M.D. PCP - General Family Medicine 12/18/[address] [place] [phone] documented as of this encounter
--- OUTSIDE RECORDS SUMMARY | 2022-02-22 12:31 | XMS_ITS | Encounter Summary ---
:1985 Author Organization [facility] Address [address] [place] [address] Care Team Providers Name Role Phone Patricio Palmer M.D. Primary Care Provider Encounter Details Date Type Department Care Team Description 05/24/2021 Orders Only Department of [place]rology in [place], [place] [address] [facility] [address] [place], [place] [address] [place], [place] [phone] (Wo rk) Social History Tobacco Use Types [...] or relatives? How often do you attend sabianism or 1 to 4 times per year 05/18 shinto services? Do you belong to any clubs or No 06/09/2021 organizations such as sabianism groups, unions, fraternal or athletic groups, or [...] at Date Recorded Female 06/09/2021 2:09 PM JOB ORDER CLERK documented as of this encounter Plan of Treatment Not on filedocumented as of this encounter Visit Diagnoses Not on filedocumented in this encounter Care Teams Home Energy Consultant Relationship Specialty Start Date End Date Patricio Palmer M.D. PCP - General Family Medicine 12/18/[address] [place] [phone] documented as of this encounter
--- OUTSIDE RECORDS SUMMARY | 2022-02-22 12:31 | XMS_ITS | Encounter Summary ---
:1985 Author Organization [facility] Address [address] [place] [address] Care Team Providers Name Role Phone Patricio Palmer M.D. Primary Care Provider Reason for Referral Outpatient (Routine) - Authorized Specialty Diagnoses / Procedures Referred By Contact Refer red To Contact Family Medicine Patricio Palmer M.D. [address] [phone] Referral ID Status Reason Start Date Expiration Date Visits V isits Requested Authorized [id number] Authorized 09/15/2021 09/15/2022 1 1 ICIAN INTERNIST Encounter Details Date Type Department Care Team Description 09/15/2021 Orders Only [facility] PCP TH Monet Jenkins M.D. [address] [place] [phone] (Wo rk) Social History Tobacco Use [...] or relatives? How often do you attend yazdanism or 1 to 4 times per year 05/18 quaker services? Do you belong to any clubs or No 06/09/2021 organizations such as yazdanism groups, unions, fraternal or athletic groups, or [...] at Date Recorded Female 06/09/2021 2:09 PM PHYSICIAN INTERNIST documented as of this encounter Plan of Treatment Scheduled Referrals Name Type Priority Associated Diagnoses Order S [facility] Family Medicine Outpatient Referral Routine Expec juanito: office visit 09/29/2021, (clinic) Expires: 03/14/2022 documented as of this encounter Visit Diagnoses Not on filedocumented in this encounter Care Teams Litigation Associate Relationship Specialty Start Date End Date Patricio Palmer M.D. PCP - General Family Medicine 12/18/[address] [place] [phone] documented as of this encounter
--- OUTSIDE RECORDS SUMMARY | 2022-02-22 12:31 | XMS_ITS | Encounter Summary ---
:1985 Author Organization [facility] Address [address] [place] [address] Care Team Providers Name Role Phone Patricio Palmer M.D. Primary Care Provider Encounter Details Date Type Department Care Team Description 05/27/2021 Orders Only Department of [place]rology [place], [place] [address] [address] [place], [place] [address] [place], [place] [phone] (Wo rk) Social History Tobacco Use [...] or relatives? How often do you attend moravian or 1 to 4 times per year 05/18 pentecostalism services? Do you belong to any clubs or No 06/09/2021 organizations such as moravian groups, unions, fraternal or athletic groups, or [...] at Date Recorded Female 06/09/2021 2:09 PM GRAIN DISTRIBUTOR documented as of this encounter Plan of Treatment Not on filedocumented as of this encounter Visit Diagnoses Not on filedocumented in this encounter Additional Health Concerns Infection Onset Date Last Indicated Resolved Time COVID19 04/29/2021 04/29/2021 05/28/2021 4:49 AM GRAIN DISTRIBUTOR documented as of this encounter Care Teams Malted Milk Masher Relationship Specialty Start Date End Date Patricio Palmer M.D. PCP - General Family Medicine 12/18/[address] [place] [phone] documented as of this encounter
--- OUTSIDE RECORDS SUMMARY | 2022-02-22 12:32 | XMS_ITS | Encounter Summary ---
:1985 Author Organization [facility] Address [address] [place] [address] Care Team Providers Name Role Phone Patricio Palmer M.D. Primary Care Provider Reason for Visit Reason Comments COVNICKI Nurse Line Encounter Details Date Type Department Care Team Description 11/16/2020 Clinical Communication Division of MERRITT Merrill Nurse [place] [place] [facility] in [place], [place] [address] [place] [address] Social History Tobacco Use Types Packs/Day Years [...] or relatives? How often do you attend jew or 1 to 4 times per year 05/18 sikh services? Do you belong to any clubs or No 06/09/2021 organizations such as jew groups, unions, fraternal or athletic groups, or [...] place to sleep or slept in a snf (including now)? Education Answer Date Recorded What is the highest level of school you have GED or equivale nt 12/19/2018 completed or the highest degree you have received? Sex Assigned at Date Recorded Female 06/09/2021 2:09 PM BARREL LEVELER documented as of this encounter Miscellaneous Notes Telephone Encounter - Silva Merrill R.N. - 11/16/2020 8:50 AM CDT COVID-19 Nurse Line Screening ASSESSMENT Region Select appropriate region: : [place] Age Pathway Select approprite pathway: : Adult Have you had close contact* with a person who has a LABORATORY CONFIRMED case of COVID-19 in the past 14 days?: Yes- provide quarantine instructions unless exceptions met. (Continue Screening) In the last 48 hours, have you had a fever* OR symptoms that are unrelated to a preexisting illness?: New diarrhea, New headache (stuffy nose) Have you tested positive for COVID-19 in the last 90 days?: No (Continue Screening) Have you received a COVID-19 vaccine in the last 72 hours? : No vaccine received (Continue Screening) Do you have any of the following urgent symptoms?: No urgent symptoms noted (Continue Screening) Have you tested positive for COVID-19 in the last 45 days?: No (Continue Screening) Are ALL the following criteria met: age between 18 to 75 yrs, main symptom is a sore throat with duration of 24 hrs to 7 days, onset of sore throat not associated with new upper respiratory symptoms*? : No, COVID testing is recommended (End Screening) Symptom Onset Date of symptom onset: 11/12/20 Testing Recommendation Endpoint Is testing recommended? : Recommended to test PLAN Endpoint recommendation: Screening positive, testing indicated, advised to be swabbed for COVID-19 Only , sent to [facility] located at [address] [place] [address]. The entrance is on the north side of the building. You must call [phone] during the hours of 7am to 6 pm (M-F) or 9 am to 4 pm (Sat and Sun) for an appointment time. You can also schedule via your Patient Online Services account. Testing hours are 8 am to 12 noon every day. When you arrive at the testing site: Remain in your vehicle and check-inby calling the number listed on the signage at the testing site or provided to you at the time you schedule your testing appointment. and Please avoid using public transportation per CDC recommendation. If you do not have personal transportation please self- quarantine until a personal transportation option is available. Care Points: -Wash hands frequently with soap and water for at least 20 seconds -If soap and water are not available, use a hand nuclear monitoring technician -Avoid touching your eyes, nose and mouth. -Clean and disinfect high-touch surfaces routinely. -Wear a mask over your nose and mouth. A cloth face cover is not a substitute for social distancing -Continue to keep about 6 feet between yourself and others. -Avoid public areas and public transportation. -Find new ways to connect with family and friends, get support and share feelings. -Seek emergent care if any of the following occur Trouble breathing Bluish lips or face Persistent pain or pressure in the chest New confusion or inability to rouse. -Notify your regular care provider of any new or worsening symptoms. Symptomatic Carepoints: Stay home and separate yourself from others and stay in a specific sick room if able. Avoid sharing personal or household items. Rest. Hydrate. Take Acetaminophen/Ibuprofen asneeded to control fever and muscles aches. Use over the counter medications as needed for other symptoms. If you have received a negative COVID-19 test result and continue to have new or worsening symptoms after 72 hours please call the COVID Nurse Line to assess if you need repeat testing or reach out to your Primary Care Provider for guidance. Education: Patient/caregiver able to teach back Patient agreeable to plan of care: Yes The following references were used: [facility] novel coronavirus (COVID- 19) resources Nursing judgement documented in this encounter Plan of Treatment Not on filedocumented as of this encounter Visit Diagnoses Not on filedocumented in this encounter Care Teams Special Order Jeweler Relationship Specialty Start Date End Date Patricio Palmer M.D. PCP - General Family Medicine 12/18/[address] [place] [phone] documented as of this encounter
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
--- OUTSIDE RECORDS SUMMARY | 2022-02-22 12:32 | XMS_ITS | Encounter Summary ---
:1985 Author Organization [facility] Address [address] [place] [address] Care Team Providers Name Role Phone Patricio Palmer M.D. Primary Care Provider Encounter Details Date Type Department Care Team Description 11/16/2020 Admin Visit Department of Family Medicine, [address] [address] [facility] [phone] Social History Tobacco Use Types Packs/Day Years [...] or relatives? How often do you attend taoism or 1 to 4 times per year 05/18 islam services? Do you belong to any clubs or No 06/09/2021 organizations such as taoism groups, unions, fraternal or athletic groups, or [...] at Date Recorded Female 06/09/2021 2:09 PM CERAMICS TECHNICIAN documented as of this encounter Plan of Treatment Not on filedocumented as of this encounter Visit Diagnoses Not on filedocumented in this encounter Additional Health Concerns Infection Onset Date Last Indicated Resolved Time COVID19 Pending 11/16/2020 11/16/2020 11/16/2020 10:44 PM CDT documented as of this encounter Care Teams Lead Investigator Relationship Specialty Start Date End Date Patricio Palmer M.D. PCP - General Family Medicine 12/18/[address] [place] [phone] documented as of this encounter
--- OUTSIDE RECORDS SUMMARY | 2022-02-22 12:32 | XMS_ITS | Encounter Summary ---
:1985 Author Organization [facility] Address [address] [place] [address] Care Team Providers Name Role Phone Patricio Palmer M.D. Primary Care Provider Encounter Details Date Type Department Care Team Description 08/17/2020 Clinical Communication Department of Anders Welch, Medicine, Sharif Das [facility], in [address] [address] [place] [address] [phone] Social History Tobacco Use Types Packs/Day Years [...] or relatives? How often do you attend catholic or 1 to 4 times per year 05/18 jehovah's witness services? Do you belong to any clubs or No 06/09/2021 organizations such as catholic groups, unions, fraternal or athletic groups, or [...] place to sleep or slept in a assisted (including now)? Education Answer Date Recorded What is the highest level of school you have GED or equivale nt 12/19/2018 completed or the highest degree you have received? Sex Assigned at Date Recorded Female 06/09/2021 2:09 PM PROCESS SAFETY MANAGER documented as of this encounter Miscellaneous Notes Telephone Encounter - Gabrielle Castillo - 08/17/2020 12:33 PM CST Pt sent in a portal message regarding her shoulder pain. This has been forward on to provider for review. Please see that duplicate message. ESS SAFETY MANAGER Telephone Encounter - Nadine Queen - 08/17/2020 11:32 AM CST Patient states that her pain has gotten significantly worse. Rates it at an 8 and states that it is now waking her up at night . Does not want the cortisone shot but is wondering if there is something stronger for pain she could get because the tylenol and ibuprofen aren't helping. Please advise. She does have an appt with PT on 08/27. ESS SAFETY MANAGER documented in this encounter Plan of Treatment Not on filedocumented as of this encounter Visit Diagnoses Not on filedocumented in this encounter Care Teams Printer Small Print Shop Relationship Specialty Start Date End Date Patricio Palmer M.D. PCP - General Family Medicine 12/18/[address] [place] [address] EMEKA Olguin [phone] documented as of this encounter
--- OUTSIDE RECORDS SUMMARY | 2022-02-22 12:32 | XMS_ITS | Encounter Summary ---
:1985 Author Organization [facility] Address [address] [place] [address] Care Team Providers Name Role Phone Patricio Palmer M.D. Primary Care Provider Encounter Details Date Type Department Care Team Description 08/03/2020 Clinical Communication Department of [facility] Jessica Kang Medicine, Sharif Layne M.SFlex [facility], in [address] [address] [place] [address] [phone] Social History Tobacco Use Types Packs/Day Years [...] or relatives? How often do you attend anabaptism or 1 to 4 times per year 05/18 worship services? Do you belong to any clubs or No 06/09/2021 organizations such as anabaptism groups, unions, fraternal or athletic groups, or [...] place to sleep or slept in a nursing home (including now)? Education Answer Date Recorded What is the highest level of school you have GED or equivale nt 12/19/2018 completed or the highest degree you have received? Sex Assigned at Date Recorded Female 06/09/2021 2:09 PM WINDOW SASH INSTALLER documented as of this encounter Miscellaneous Notes Telephone Encounter - Edilma Perry, L.P.N. - 08/03/2020 1:02 PM WINDOW SASH INSTALLER Phoned with test results of shoulder x-ray. Per aleta CASON informed patient that shoulder x-ray was normal. Did inform patient that if pain is not getting better in a week or so to call and Aleta would put in a order for a MRI. Patient did not have any further questions. OW SASH INSTALLER documented in this encounter Plan of Treatment Not on filedocumented as of this encounter Visit Diagnoses Not on filedocumented in this encounter Care Teams Biomedical Engineering Aide Relationship Specialty Start Date End Date Patricio Palmer M.D. PCP - General Family Medicine 12/18/[address] [place] [phone] documented as of this encounter
--- OUTSIDE RECORDS SUMMARY | 2022-02-22 12:32 | XMS_ITS | Encounter Summary ---
:1985 Author Organization [facility] Address [address] [place] [address] Care Team Providers Name Role Phone Patricio Palmer M.D. Primary Care Provider Reason for Referral MRI/CAT/PET Scan (Routine) - Closed Specialty Diagnoses / Procedures Referred By Contact Refer red To Contact Radiology Diagnoses Pain Shoulder Right Aftab Kang P.A.-C., [facility] Region Procedures MR Shoulder Right without IV Contrast [place] MRI UPR EXT JOINT WO MICHELLE M.SFlex [address] [place] [phone] Referral ID Status Reason Start Date Expiration Date Visits Requ ested Visits Authorized [id number] Closed 08/06/2020 08/06/2021 1 1 ONAL COMMERCIAL SALES MANAGER Encounter Details Date Type Department Care Team Description 08/06/2020 Orders Only Department of [facility] Aftab Kang Pain Shoulder Right Medicine, Sharif Layne, M.SFlex (Primary Dx) Clinic, in [address] [address] [place] [address] [phone] Social History Tobacco Use Types Packs/Day Years [...] or relatives? How often do you attend religious or 1 to 4 times per year 05/18 taoist services? Do you belong to any clubs or No 06/09/2021 organizations such as religious groups, unions, fraNorthern Defence & Security or athletic groups, or school groups? How [...] at Date Recorded Female 06/09/2021 2:09 PM REGIONAL COMMERCIAL SALES MANAGER documented as of this encounter Plan of Treatment Not on filedocumented as of this encounter Results MR Shoulder Right without IV Contrast (08/13/2020 11:26 AM REGIONAL COMMERCIAL SALES MANAGER) Anatomical Region Laterality Modality Upper Extremity, Shoulder, Musculoskeletal RST LOS, Right Magnetic Resonance Musculoskeletal ARZ LOS, Muskuloskeletal FLA LOS Specimen (Source) Anatomical Collection Method Collection Time Re ceived Time Location / / Volume Laterality 08/13/2020 4:16 PM REGIONAL COMMERCIAL SALES MANAGER Impressions 08/14/2020 12:24 AM REGIONAL COMMERCIAL SALES MANAGER 1. ??Minimal supraspinatus tendinopathy. 2. ??Otherwise, unremarkable right shoul jeannette MRI. Narrative 08/14/2020 12:24 AM REGIONAL COMMERCIAL SALES MANAGER EXAM: MR SHOULDER RIGHT WITHOUT IV CONTRAST COMPARISON: Right shoulder radiographs f rom 08/03/2020; right shoulder MRI from 08/24/2016 FINDINGS: Rotator cuff: Supraspinatus: Minimal tendinopathy at t he insertion characterized by mild tendon thickening. The findings have imp roved since the 2017 comparison. No surfacing tear or muscle atrophy. Infraspinatus: Normal. Teres minor: Normal. Subscapularis: Normal. Labrum: Normal. No paralabral cyst. Biceps: Normal. No signs of tenosynovitis. Cartilage: Normal. Acromion/AC joint: Normal. Bigliani type II acromion. Osseous: Normal marrow signal. Normal glenohumera l joint alignment. Soft tissues: Normal. No bursal fluid collection. Procedure Note Bishnu Pham M.D. - 08/14/2020Formatt ing of this note might be different from the original. EXAM: MR SHOULDER RIGHT WITHOUT IV CONTR AST COMPARISON: Right shoulder radiographs f rom 08/03/2020; right shoulder MRI from 08/24/2016 FINDINGS: Rotator cuff: Supraspinatus: Minimal tendinopathy at t he insertion characterized by mild tendon thickening. The findings have imp roved since the 2017 comparison. No surfacing tear or muscle atrophy. Infraspinatus: Normal. Teres minor: Normal. Subscapularis: Normal. Labrum: Normal. No paralabral cyst. Biceps: Normal. No signs of tenosynovitis. Cartilage: Normal. Acromion/AC joint: Normal. Bigliani type II acromion. Osseous: Normal marrow signal. Normal glenohumera l joint alignment. Soft tissues: Normal. No bursal fluid collection. IMPRESSION: 1. Minimal supraspinatus tendinopathy. 2. Otherwise, unremarkable right shoulde r MRI. Aftab Kang P.A.-C. M.S. IMG MRI PROCEDURES documented in this encounter Visit Diagnoses Diagnosis Pain Shoulder Right - Primary Pain Shoulder Right documented in this encounter Care Teams Fermentologist Relationship Specialty Start Date End Date Patricio Palmer M.D. PCP - General Family Medicine 12/18/[address] [place] [phone] documented as of this encounter
--- OUTSIDE RECORDS SUMMARY | 2022-02-22 12:32 | XMS_ITS | Encounter Summary ---
:1985 Author Organization [facility] Address [address] [place] [address] Care Team Providers Name Role Phone Patricio Palmer M.D. Primary Care Provider Reason for Referral Outpatient (Routine) - Closed Specialty Diagnoses / Procedures Referred By Contact Refer red To Contact Orthopedic Surgery Diagnoses Pain Shoulder Right Aftab Kang [facility] Bebe Layne M.SFlex [address] [place] [phone] Referral ID Status Reason Start Date Expiration Date Visits Requ ested Visits Authorized [id number] Closed 08/17/2020 08/17/2021 1 1 Scheduling Instructions Ortho internal referral panel order, raymond ging before Consult visit RY SWAGING MACHINE OPERATOR Encounter Details Date Type Department Care Team Description 08/17/2020 Orders Only Department of Family Aftab Kang, Pain Shoulder Right Medicine, Sharif Layne, M.SFlex (Primary Dx) Clinic, in [address] [address] [place] [address] [phone] Social History Tobacco Use Types Packs/Day Years [...] place to sleep or slept in a jail (including now)? Education Answer Date Recorded What is the highest level of school you have GED or equivale nt 12/19/2018 completed or the highest degree you have received? Sex Assigned at Date Recorded Female 06/09/2021 2:09 PM ROTARY SWAGING MACHINE OPERATOR documented as of this encounter Plan of Treatment Scheduled Referrals Name Type Priority Associated Order Schedule Diagnoses Orthopedic Surgery - Outpatient Referral Routine Pain Shoulder Right Expected: Shoulder (no prior replacement) (Approximate), surgical consult Expires: (clinic) 08/17/2023 documented as of this encounter Visit Diagnoses Diagnosis Pain Shoulder Right - Primary documented in this encounter Care Teams Survey Party Chief Relationship Specialty Start Date End Date Patricio Palmer M.D. PCP - General Family Medicine 12/18/[address] [place] [address] EMEKA Davidson [phone] documented as of this encounter
--- OUTSIDE RECORDS SUMMARY | 2022-02-22 12:32 | XMS_ITS | Encounter Summary ---
:1985 Author Organization [facility] Address [address] [place] [address] Care Team Providers Name Role Phone Patricio Palmer M.D. Primary Care Provider Reason for Referral Outpatient (Routine) - Closed Specialty Diagnoses / Procedures Referred By Contact Refer red To Contact Family Medicine Patricio Palmer M.D. [address] [phone] Referral ID Status Reason Start Date Expiration Date Visits Requ ested Visits Authorized [id number] Closed 07/30/2020 07/30/2021 1 1 ER SPEAR Encounter Details Date Type Department Care Team Description 07/28/2020 Clinical Communication Department of Remedios Bains, Medicine, [place] [facility], Clinic, in Sravani Olguin [address] [place] [phone] [phone] Social History Tobacco Use Types Packs/Day Years [...] 1 to 4 times per year 05/18 hoahaoism services? Do you belong to any clubs or No 06/09/2021 organizations such as moravian groups, unions, fraBuilk or athletic groups, or school groups? How [...] at Date Recorded Female 06/09/2021 2:09 PM FISHER SPEAR documented as of this encounter Miscellaneous Notes Telephone Encounter - Jennifer Pimentel - 07/30/2020 1:52 PM CST Spoke with patient on phone. She reports [place] DMV needs updated loss of consciousness or voluntary control form completed. This form is available online via DPS website. Patient reports her PCP is Dr. Palmer. Patient has not seen Dr. Palmer since 2017. Patient will needoffice visit to review/complete form. Will place order for patient to be seen. Patient is agreeable to be seen in [place]. Patient has hx of epilepsy seizure. ER SPEAR Telephone Encounter - AnnaGabrielle - 07/29/2020 8:59 AM CST Left message for pt to call back. Wondering what pt is needing regarding her drivers license? Pt should make an appt with Scarlett Avendano to discuss this. ER SPEAR Telephone Encounter - Sheridan Cazares - 07/28/2020 3:48 PM CST Please do not reply to sender,emails are not monitored. Thank you. If you need a prescription refill please call your pharmacy. Please allow 3 business days for processing. Expert RN: N/A (Med Refill Only) Call Center Template: ??? May we leave a message for you on this phone? yes What can I help you with today? Patient spoke with her neurologist and was told that she can have a doctor down here sign a release for her drives license. She is wondering if this is something that Scarlett would be able to do for her. Please call to discuss. ??? If Medication Refill: o What is the name and strength of the medication? o What do you use the medication for? o How many pills do you have left? o What pharmacy do you use (include location)? I will send this information to the appropriate staff member who will look into your concern. Is there anything else I can help you with today? Thank you for calling [facility]. ER SPEAR documented in this encounter Plan of Treatment Scheduled Referrals Name Type Priority Associated Diagnoses Order [facility] Family Medicine Outpatient Referral Routine Expec juanito: office visit 07/30/2020 (clinic) (Approximate), Expires: 07/30/2023 documented as of this encounter Visit Diagnoses Not on filedocumented in this encounter Care Teams Finish Patcher Relationship Specialty Start Date End Date Patricio Palmer M.D. PCP - General Family Medicine 12/18/[address] [place] [address] [phone] documented as of this encounter
--- OUTSIDE RECORDS SUMMARY | 2022-02-22 12:32 | XMS_ITS | Encounter Summary ---
:1985 Author Organization [facility] Address [address] [place] [address] Care Team Providers Name Role Phone Patricio Palmer M.D. Primary Care Provider Encounter Details Date Type Department Care Team Description 04/21/2021 Orders Only [facility] Pharmacy - Jazmyne Olmedo, Pcp [address] [facility] [address] [place], [place] [phone] Social History Tobacco Use Types Packs/Day Years [...] 1 to 4 times per year 05/18 yazidism services? Do you belong to any clubs [...] at Date Recorded Female 06/09/2021 2:09 PM ALUM MIXER documented as of this encounter Plan of Treatment Not on filedocumented as of this encounter Visit Diagnoses Not on filedocumented in this encounter Additional Health Concerns Infection Onset Date Last Indicated Resolved Time COVID19 Pending 04/29/2021 04/29/2021 04/30/2021 1:13 AM CDT COVID19 04/29/2021 04/29/2021 05/19/2021 4:45 AM CDT documented as of this encounter Care Teams Restoration Ecologist Relationship Specialty Start Date End Date Patricio Palmer M.D. PCP - General Family Medicine 12/18/[address] [place] [phone] documented as of this encounter
--- OUTSIDE RECORDS SUMMARY | 2022-02-22 12:32 | XMS_ITS | Encounter Summary ---
:1985 Author Organization [facility] Address [address] [place] [address] Care Team Providers Name Role Phone Patricio Palmer M.D. Primary Care Provider Reason for Visit Reason Comments Med Refill Encounter Details Date Type Department Care Team Description 08/07/2020 Refill Department of Neurology in Lina Pietro sheikh M.D. Med Refill [place], [place] [address] [facility] [address] [place] [address] [place] [address] [phone] Social History Tobacco Use Types Packs/Day Years [...] 1 to 4 times per year 05/18 confucianism services? Do you belong to any clubs [...] at Date Recorded Female 06/09/2021 2:09 PM UNIT CONTROL CLERK documented as of this encounter Plan of Treatment Not on filedocumented as of this encounter Visit Diagnoses Diagnosis Epilepsy Seizure Not Intractable Without Status Epilepticus (HCC) documented in this encounter Care Teams Carton Wrapper Relationship Specialty Start Date End Date Patricio Palmer M.D. PCP - General Family Medicine 12/18/[address] [place] [phone] documented as of this encounter
--- OUTSIDE RECORDS SUMMARY | 2022-02-22 12:32 | XMS_ITS | Encounter Summary ---
:1985 Author Organization [facility] Address [address] [place] [address] Care Team Providers Name Role Phone Patricio Palmer M.D. Primary Care Provider Encounter Details Date Type Department Care Team Description 11/03/2020 Orders Only [facility] Lan Hermosillo Jr., M.D. [address] [facility] [place] [phone] (Wo rk) Social History Tobacco Use Types [...] or relatives? How often do you attend yazidi or 1 to 4 times per year 05/18 jehovah's witness services? Do you belong to any clubs or No 06/09/2021 organizations such as yazidi groups, unions, fraternal or athletic groups, or [...] at Date Recorded Female 06/09/2021 2:09 PM LAW OFFICE ASSISTANT documented as of this encounter Plan of Treatment Not on filedocumented as of this encounter Visit Diagnoses Not on filedocumented in this encounter Care Teams Data Examination Clerk Relationship Specialty Start Date End Date Patricio Palmer M.D. PCP - General Family Medicine 12/18/[address] [place] [phone] documented as of this encounter
--- OUTSIDE RECORDS SUMMARY | 2022-02-22 12:32 | XMS_ITS | Encounter Summary ---
:1985 Author Organization [facility] Address [address] [place] [address] Care Team Providers Name Role Phone Patricio Palmer M.D. Primary Care Provider Encounter Details Date Type Department Care Team Description 09/17/2020 Orders Only [facility] Monet Jenkins M.D. Screening Lipid [address] [place] [phone] (Wo rk) Social History Tobacco [...] or relatives? How often do you attend buddhist or 1 to 4 times per year 05/18 congregation services? Do you belong to any clubs or No 06/09/2021 organizations such as buddhist groups, unions, fraternal or athletic groups, or [...] at Date Recorded Female 06/09/2021 2:09 PM ANIMAL HUSBANDMAN documented as of this encounter Plan of Treatment Scheduled Orders Name Type Priority Associated Diagnoses Order S chedule Lipid Panel Lab Routine Screening Lipid Expected: , Expires: 09/18/2023 documented as of this encounter Visit Diagnoses Diagnosis Screening Lipid documented in this encounter Care Teams Chrome Polisher Relationship Specialty Start Date End Date Patricio Palmer M.D. PCP - General Family Medicine 12/18/[address] [place] [phone] documented as of this encounter
--- OUTSIDE RECORDS SUMMARY | 2022-02-22 12:32 | XMS_ITS | Encounter Summary ---
:1985 Author Organization [facility] Address [address] [place] [address] Care Team Providers Name Role Phone Patricio Palmer M.D. Primary Care Provider Reason for Referral MRI/CAT/PET Scan (Routine) - Closed Specialty Diagnoses / Procedures Referred By Contact Refer red To Contact Radiology Diagnoses Pain Shoulder Right Aftab Kang P.A.-C., [facility] Region Procedures MR Shoulder Right without IV Contrast AR MRI UPR EXT JOINT WO CNTRST M.S. [address] [place] [address] Referral ID Status Reason Start Date Expiration Date Visits Requ ested Visits Authorized [id number] Closed 08/06/2020 08/06/2021 1 1 R CLEANER OPERATOR Reason for Visit MRI/CAT/PET Scan (Routine) - Closed Specialty Diagnoses / Procedures Referred By Contact Refer red To Contact Radiology Diagnoses Pain Shoulder Right Aftab Kang P.A.-C., [facility] Region Procedures MR Shoulder Right without IV Contrast AR MRI UPR EXT JOINT WO CNTRST M.S. [address] [place] [address] Referral ID Status Reason Start Date Expiration Date Visits Requ ested Visits Authorized [id number] Closed 08/06/2020 08/06/2021 1 1 Encounter Details Date Type Department Care Team Description 08/13/2020 Hospital Encounter Department of Aftab Kang, Pain Shoulder Right Radiology in [place], M. S. [address] [facility] [place] [phone] Social History Tobacco Use Types Packs/Day Years [...] or relatives? How often do you attend judaism or 1 to 4 times per year 05/18 anabaptist services? Do you belong to any clubs or No 06/09/2021 organizations such as judaism groups, unions, fraternal or athletic groups, or [...] at Date Recorded Female 06/09/2021 2:09 PM POWER CLEANER OPERATOR documented as of this encounter Medications at Time of Discharge Medication Sig Dispensed Refills Start Date End Date ACETAMINOPHEN ORAL Take 500 mg by mouth 0 016 as needed. Takes 4 tablet (2,000mg total) by mouth as needed for headaches albuterol (ProAir HFA) Inhale 2 puffs every 25.5 g 3 08/2019 90 mcg/actuation 4 (four) hours as inhaler needed for wheezing or shortness of breath. ibuprofen Take 1 tablet (800 mg 90 tablet 0 11/05/2019 (ADVIL,MOTRIN) 800 mg total) by mouth 3 tablet (three) times a day as needed for pain (pain). lamoTRIgine (LaMICtal) Take 2 tablets (200 120 tablet 5 07/18 100 mg tablet mg total) by mouth 2 (two) times a day. medical cannabis Take by mouth as needed. Pt does not know dosage 0 capsule THC component: mg CBD component: mg SUMAtriptan (IMITREX) Take 1 tablet (50 mg 9 tablet 5 11/2018 50 mg tablet total) by mouth once as needed for migraine for up to 1 dose. May repeat one time after 2 hours if needed. lacosamide (Vimpat) 100 Take 1 tablet (100 mg 60 tablet 5 0 08/07/2020 02/08/2021 mg tabletIndications: total) by mouth 2 Epilepsy Seizure Not (two) times a day. Intractable Without Please follow up to Status Epilepticus ensure future (HCC) refills. lamoTRIgine (LaMICtal) Take 200 mg by mouth 11 06/09/2021 100 mg tablet 2 (two) times a day. lamoTRIgine (LaMICtal) TAKE 2 TABLETS (200 360 tablet 3 08/1708/14/2020 100 mg tablet MG TOTAL) BY MOUTH 2 (TWO) TIMES A DAY. mupirocin (BACTROBAN) 2 Apply 1 application 10 g 0 01/202006/04/2021 % nasal ointment to each nostril 2 (two) times a day. 1/2 tube each nostril twice daily. Press and massage after applying naproxen (NAPROSYN) 500 Take 1 tablet (500 mg 20 tablet 0 0 01/21/2020 06/04/2021 mg tablet total) by mouth 2 (two) times a day with meals for 10 days. documented as of this encounter Plan of Treatment Not on filedocumented as of this encounter Procedures Procedure Name Priority Date/Time Associated Comments Diagnosis MR SHOULDER RIGHT RAD - Routine 08/13/2020 11:26 Pain Shoulder Resu lts for this WITHOUT IV (most inpatients AM POWER CLEANER OPERATOR Right procedure a re in CONTRAST and all the results outpatients) section. documented in this encounter Results MR Shoulder Right without IV Contrast (08/13/2020 11:26 AM POWER CLEANER OPERATOR) Anatomical Region Laterality Modality Upper Extremity, Shoulder, Musculoskeletal RST LOS, Right Magnetic Resonance Musculoskeletal ARZ LOS, Muskuloskeletal FLA LOS Specimen (Source) Anatomical Collection Method Collection Time Re ceived Time Location / / Volume Laterality 08/13/2020 4:16 PM POWER CLEANER OPERATOR Impressions 08/14/2020 12:24 AM POWER CLEANER OPERATOR 1. ??Minimal supraspinatus tendinopathy. 2. ??Otherwise, unremarkable right shoul jeannette MRI. Narrative 08/14/2020 12:24 AM POWER CLEANER OPERATOR EXAM: MR SHOULDER RIGHT WITHOUT IV CONTRAST COMPARISON: Right shoulder radiographs f rom 08/03/2020; right shoulder MRI from 08/24/2016 FINDINGS: Rotator cuff: Supraspinatus: Minimal tendinopathy at t he insertion characterized by mild tendon thickening. The findings have imp roved since the 2016 comparison. No surfacing tear or muscle atrophy. [...] The findings have imp roved since the 2016 comparison. No surfacing tear or muscle atrophy. [...] encounter Visit Diagnoses Diagnosis Pain Shoulder Right documented in this encounter Care Teams Clinical Data Manager Relationship Specialty Start Date End Date Patricio Palmer M.D. PCP - General Family Medicine 12/18/[address] [place] [phone] documented as of this encounter
--- OUTSIDE RECORDS SUMMARY | 2022-02-22 12:32 | XMS_ITS | Encounter Summary ---
:1985 Author Organization [facility] Address [address] [place] [address] Care Team Providers Name Role Phone Patricio Palmer M.D. Primary Care Provider Encounter Details Date Type Department Care Team Description 08/06/2020 Clinical Communication Department of Anders Welch, Medicine, [facility], in [address] [address] [place] [address] [phone] Social History Tobacco Use Types Packs/Day Years [...] or relatives? How often do you attend latter-day or 1 to 4 times per year 05/18 roman catholic services? Do you belong to any clubs or No 06/09/2021 organizations such as latter-day groups, unions, fraternal or athletic groups, or [...] at Date Recorded Female 06/09/2021 2:09 PM MARBLE SUPERVISOR documented as of this encounter Miscellaneous Notes Telephone Encounter - Jennifer Pimentel - 08/06/2020 1:47 PM CST Anthropologist spoke with patient on phone; see other clinical communication from today. LE SUPERVISOR Telephone Encounter - Sheree Zapata - 08/06/2020 1:21 PM CST Please do not reply to sender,emails are not monitored. Thank you. If you need a prescription refill please call your pharmacy. Please allow 3 business days for processing. Expert RN: Declined Call Center Template: ??? May we leave a message for you on this phone? yes What can I help you with today? Patient called back asking to speak with Crystal. Patient states that she was left a voicemail askingto call Crystal back. I will send this information to the appropriate staff member who will look into your concern. Is there anything else I can help you with today? Thank you for calling [facility]. LE SUPERVISOR documented in this encounter Plan of Treatment Not on filedocumented as of this encounter Visit Diagnoses Not on filedocumented in this encounter Care Teams Circle Beveler Relationship Specialty Start Date End Date Patricio Palmer M.D. PCP - General Family Medicine 12/18/[address] [place] [phone] documented as of this encounter
--- OUTSIDE RECORDS SUMMARY | 2022-02-22 12:32 | XMS_ITS | Encounter Summary ---
:1985 Author Organization [facility] Address [address] [place] [address] Care Team Providers Name Role Phone Patricio Palmer M.D. Primary Care Provider Encounter Details Date Type Department Care Team Description 03/30/2021 Orders Only Department of Family Suad Avendano, At [facility] Medicine, Sharif DUEÑAS C.N.P., Hyperactiv e Disorder [facility], in [place] (Primary Dx) [address] [place] [phone] [phone] Social History Tobacco Use Types Packs/Day Years [...] or relatives? How often do you attend orthodox or 1 to 4 times per year 05/18 yazidi services? Do you belong to any clubs or No 06/09/2021 organizations such as orthodox groups, unions, fraternal or athletic groups, or [...] place to sleep or slept in a detention (including now)? Education Answer Date Recorded What is the highest level of school you have GED or equivale nt 12/19/2018 completed or the highest degree you have received? Sex Assigned at Date Recorded Female 06/09/2021 2:09 PM VETERANS' COUNSELOR documented as of this encounter Plan of Treatment Not on filedocumented as of this encounter Visit Diagnoses Diagnosis Attention Deficit Hyperactive Disorder - Primary documented in this encounter Care Teams Web Designer Relationship Specialty Start Date End Date Patricio Palmer M.D. PCP - General Family Medicine 12/18/[address] [place] [phone] documented as of this encounter
--- OUTSIDE RECORDS SUMMARY | 2022-02-22 12:32 | XMS_ITS | Encounter Summary ---
:1985 Author Organization [facility] Address [address] [place] [address] Care Team Providers Name Role Phone Patricio Palmer M.D. Primary Care Provider Reason for Visit Reason Onset Date Comments Outpatient COVID-19 Testing 11/16/2020 Encounter Details Date Type Department Care Team Description 11/16/2020 External Outreach Department of [facility] Pee Acuña Contact With And Medicine, [facility] Silvio Eugene D.O. (Suspected) Exposure Building, in [address] COVID-19 ([place], [place] Dx) [address] [facility] [address] [place], [place] [phone] (Work) [phone] Social History Tobacco Use Types Packs/Day Years [...] or relatives? How often do you attend pentecostalism or 1 to 4 times per year 05/18 taoist services? Do you belong to any clubs or No 06/09/2021 organizations such as pentecostalism groups, unions, fraternal or athletic groups, or [...] at Date Recorded Female 06/09/2021 2:09 PM NUTRITION SERVICES ASSOCIATE documented as of this encounter Progress Notes Car Myles R.N. - 11/16/2020 9:08 AM CDT Encounter created for COVID-19 screening. documented in this encounter Miscellaneous Notes Result Encounter Note - Dia Serrano M.D., M.P.H. - 11/17/2020 8:47 AM CDT The patient will be contacted if they are eligible for Monoclonal Antibody Infusion (MASS 1 or greater) and/or Remote Patient Monitoring (MASS 3 or greater). The [facility] ([facility]) sends general guidance about COVID-19 to all patients by letter or portal, except when a patient is hospitalized or resides in a retirement. [facility] will call all adult patients at highest risk for severe complications of COVID-19 (MASS 3 or greater), those without an online services account, and those who require an business process specialist. Any patient with a MASS score 1 [...] for symptom management. For questions, contact the [facility] ([facility]): Pager: [phone] In basket: P [facility] COVID-19 POSITIVE Covid [...] to obtain the result by calling the [employer] result line or by checking the online services account. documented in this encounter Plan of Treatment Not on filedocumented as of this encounter Procedures Procedure Name Priority Date/Time Associated Diagnosis Comme nts SARS CORONAVIRUS-2 Routine 11/16/2020 9:43 AM Contact With And Results for this RNA, V CDT (Suspected) Exposure procedu re are in To COVID-19 the results section. documented in this encounter Results (ABNORMAL) SARS Coronavirus-2 RNA, V Asymptomatic (11/16/2020 9:43 AM CDT) [facility] Method Time Signature SARS-CoV-2 Swab, 11/16/2020 MK[facility] Specimen Nasopharynx 10:43 PM Source CDT SARS CoV-2 Detected (A) Undetected 11/16/2020 MKTO RNA, TMA 10:43 PM CDT Comment: SARS-CoV-2 RNA present. ----ADDITIONAL INFORMATION---- This molecular amplification test was pe rformed using the Aptima SARS-CoV-2 assay ([employer] on the [employer] tem under emergency use authorization (EUA) by the U.S. Food and Drug Administ ration. Fact sheets for this EUA assay can be fo und at the following links: For Healthcare Providers: https://www.fd a.gov/media/097875/download For Patients: https://www.fda.gov/media/ 680137/download Specimen Anatomical Collection Method Collection Time Receive d Time (Source) Location / / Volume Laterality Varies 11/16/2020 9:43 AM 3:57 (Nasopharynx) CDT PM CDT Pee Acuña D.O. LAB MICROBIOLOGY - GENERAL O RDERABLES Performing Organization Address City/[facility] Phon e Number [facility]- [address] [place] [id number] [place] [address] [place] [address] [address] documented in this encounter Visit Diagnoses Diagnosis Contact With And (Suspected) Exposure To COVID-19 - Primary documented in this encounter Additional Health Concerns Infection Onset Date Last Indicated Resolved Time COVID19 Pending 11/16/2020 11/16/2020 11/16/2020 10:44 PM CDT documented as of this encounter Care Teams Clinic Charge Nurse Relationship Specialty Start Date End Date Patricio Palmer M.D. PCP - General Family Medicine 12/18/[address] [place] [phone] documented as of this encounter
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
--- OUTSIDE RECORDS SUMMARY | 2022-02-22 12:32 | XMS_ITS | Encounter Summary ---
:1985 Author Organization [facility] Address [address] [place] [address] Care Team Providers Name Role Phone Patricio Palmer M.D. Primary Care Provider Reason for Visit Reason Comments Med Refill Encounter Details Date Type Department Care Team Description 02/08/2021 Refill Department of Neurology in Lina Pietro sheikh M.D. Med Refill [place], [place] [address] [facility] [address] [place] [address] [place] [address] [phone] Social History Tobacco Use Types Packs/Day Years [...] 1 to 4 times per year 05/18 spiritism services? Do you belong to any clubs [...] place to sleep or slept in a [place] [facility] (including now)? Education Answer Date Recorded What is the highest level of school you have GED or equivale nt 12/19/2018 completed or the highest degree you have received? 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 PCP - General Family Medicine 12/18/[address] [place] [phone] documented as of this encounter
--- OUTSIDE RECORDS SUMMARY | 2022-02-22 12:32 | XMS_ITS | Encounter Summary ---
:1985 Author Organization [facility] Address [address] [place] [address] Care Team Providers Name Role Phone Patricio Palmer M.D. Primary Care Provider Encounter Details Date Type Department Care Team Description 05/08/2020 Orders Only [facility] - Patricio Mackey M.D. [address] [facility] [address] [place] [phone] [place] [phone] (Wo rk) Social History Tobacco Use Types [...] 1 to 4 times per year 05/18 sikhism services? Do you belong to any clubs [...] at Date Recorded Female 06/09/2021 2:09 PM LAP MAKER documented as of this encounter Plan of Treatment Not on filedocumented as of this encounter Visit Diagnoses Not on filedocumented in this encounter Additional Health Concerns Infection Onset Date Last Indicated Resolved Time MRSA 04/20/2020 04/20/2020 07/19/2020 4:45 AM LAP MAKER documented as of this encounter Care Teams Transit Coach Operator Relationship Specialty Start Date End Date Patricio Palmer M.D. PCP - General Family Medicine 12/18/[address] [place], [place] [address] [phone] documented as of this encounter
--- OUTSIDE RECORDS SUMMARY | 2022-02-22 12:32 | XMS_ITS | Encounter Summary ---
:1985 Author Organization [facility] Address [address] [place] [address] Care Team Providers Name Role Phone Patricio Palmer M.D. Primary Care Provider Reason for Visit Reason Comments COVID Nurse Line Encounter Details Date Type Department Care Team Description 11/17/2020 Nurse Triage Department of Family Etelvina Abarca, MERRITT Nurse Line Medicine, [facility], R.N. in [place], [place] [address] [place] [phone] Social History Tobacco Use Types Packs/Day Years [...] 1 to 4 times per year 05/18 christianity services? Do you belong to any clubs or No 06/09/2021 organizations such as religious groups, unions, fraternal or athletic groups, or [...] place to sleep or slept in a long-term (including now)? Education Answer Date Recorded What is the highest level of school you have GED or equivale nt 12/19/2018 completed or the highest degree you have received? 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 - 11/17/2020 8:34 AM CDT COVID-19 Nurse Line Screening Caller reports she and her boyfriend tested positive for COVID-19 on 11/16/20. They are not having health concerns at this time but requesting information for proper care during their quarantine. PLAN Endpoint recommendation: last test within 72 hours, not sent for testing Care Points: -Wash hands frequently with soap and water for at least 20 seconds -If soap and water are not available, use a hand kennel supervisor -Avoid touching your eyes, nose and mouth. [...] counter medications as needed for other symptoms. Throat lozenges will help keep the throat lubricated. Hard candy, lollipops, and throat lozenges are equally effective. Use a humidifier. If you have received a negative COVID-19 test result and continue to have new or worsening symptoms after 72 hours please call the COVID Nurse Line to assess if you need repeat testing or reach out to your Primary Care Provider for guidance. Education: Patient/caregiver able to teach back Patient agreeable to plan of care: Yes The following references were used: [facility] novel coronavirus (COVID- 19) resources documented in this encounter Plan of Treatment Not on filedocumented as of this encounter Visit Diagnoses Not on filedocumented in this encounter Additional Health Concerns Infection Onset Date Last Indicated Resolved Time COVID19 11/16/2020 11/16/2020 12/06/2020 4:45 AM CDT documented as of this encounter Care Teams Content Designer Relationship Specialty Start Date End Date Patricio Palmer M.D. PCP - General Family Medicine 12/18/[address] [place] [phone] documented as of this encounter
--- OUTSIDE RECORDS SUMMARY | 2022-02-22 12:32 | XMS_ITS | Encounter Summary ---
:1985 Author Organization [facility] Address [address] [place] [address] Care Team Providers Name Role Phone Patricio Palmer M.D. Primary Care Provider Encounter Details Date Type Department Care Team Description 08/03/2020 Hospital Encounter Department of Aftab Kang, Pain Shoulder Right Radiology in [place], [place] [address] [place], [place] [phone] Social History Tobacco Use Types Packs/Day Years [...] at Date Recorded Female 06/09/2021 2:09 PM AQUATICS COORDINATOR documented as of this encounter Medications at [...] one time after 2 hours if needed. lamoTRIgine (LaMICtal) Take 200 mg by mouth [...] a day with meals for 10 days. Vimpat 100 mg TAKE 1 TABLET (100 MG 60 tablet 5 02/04/2020 08/07/2020 tabletIndications: TOTAL) BY MOUTH 2 Epilepsy Seizure Not (TWO) TIMES A DAY. Intractable Without Status Epilepticus (HCC) documented as of this encounter Plan of Treatment Not on filedocumented as of this encounter Procedures Procedure Name Priority Date/Time Associated Comments Diagnosis DX SHOULDER RIGHT RAD - Routine 08/03/2020 10:48 Pain Shoulder Resu lts for this 2+ VIEWS (most inpatients AM AQUATICS COORDINATOR Right procedure a re in and all the results outpatients) section. documented in this encounter Results DX Shoulder Right 2+ Views (08/03/2020 10:48 AM AQUATICS COORDINATOR) Anatomical Region Laterality Modality Upper Extremity, Shoulder, Musculoskeletal RST LOS, Right Digital Radiography Musculoskeletal ARZ LOS, Muskuloskeletal FLA LOS Specimen (Source) Anatomical Collection Method Collection Time Re ceived Time Location / / Volume Laterality 08/03/2020 11:29 AM AQUATICS COORDINATOR Impressions 08/03/2020 11:31 AM AQUATICS COORDINATOR No significant radiographic abnormality of the right shoulder. Narrative 08/03/2020 11:31 AM AQUATICS COORDINATOR EXAM: DX SHOULDER RIGHT 2+ VIEWS COMPARISON: Shoulder radiograph from 07/18, shoulder MRI from 08/24/2016 FINDINGS: No acute fracture or malalignm ent. No significant degenerative changes. The soft tissues appear unremar kable. Procedure Note Lexx Burnham M.D. - 08/03/2020Formsonal campos of this note might be different from the original. EXAM: DX SHOULDER RIGHT 2+ VIEWS COMPARISON: Shoulder radiograph from 07/18, shoulder MRI from 08/24/2016 FINDINGS: No acute fracture or malalignm ent. No significant degenerative changes. The soft tissues appear unremar kable. IMPRESSION: No significant radiographic abnormality of the right shoulder. Aftab Kang P.A.-C., M.S. IMG DIAGNOSTIC IMAGING PRO CEDURES documented in this encounter Visit Diagnoses Diagnosis Pain Shoulder Right documented in this encounter Care Teams Brick Paver Relationship Specialty Start Date End Date aPtricio Palmer M.D. PCP - General Family Medicine 12/18/[address] [place] [phone] documented as of this encounter
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
--- OUTSIDE RECORDS SUMMARY | 2022-02-22 12:32 | XMS_ITS | Encounter Summary ---
:1985 Author Organization [facility] Address [address] [place] [address] Care Team Providers Name Role Phone Patricio Palmer M.D. Primary Care Provider Encounter Details Date Type Department Care Team Description 2021 Orders Only Department of Family Claudette Chavez , [facility], [facility] [place] [address] [place] [address] Social History Tobacco Use Types Packs/Day Years [...] or relatives? How often do you attend zoroastrian or 1 to 4 times per year 05/18 pentecostal services? Do you belong to any clubs or No 06/09/2021 organizations such as zoroastrian groups, unions, fraternal or athletic groups, or [...] at Date Recorded Female 06/09/2021 2:09 PM PRODUCT DEVELOPMENT CHEMIST documented as of this encounter Plan of Treatment Not on filedocumented as of this encounter Visit Diagnoses Not on filedocumented in this encounter Care Teams Chief Technologist Relationship Specialty Start Date End Date Patricio Palmer M.D. PCP - General Family Medicine 12/18/[address] [place] [phone] documented as of this encounter
--- OUTSIDE RECORDS SUMMARY | 2022-02-22 12:32 | XMS_ITS | Encounter Summary ---
:1985 Author Organization [facility] Address [address] [place] [address] Care Team Providers Name Role Phone Patricio Palmer M.D. Primary Care Provider Reason for Visit Reason Comments COVID Inquiry Encounter Details Date Type Department Care Team Description 11/16/2020 Clinical Communication Department of Anders Welch, MERRITT Salas Medicine, Sharif Das [facility], [address] [address] [place] [address] [phone] Social History Tobacco Use Types Packs/Day Years [...] or relatives? How often do you attend quaker or 1 to 4 times per year 05/18 baptism services? Do you belong to any clubs or No 06/09/2021 organizations such as quaker groups, unions, fraternal or athletic groups, or [...] at Date Recorded Female 06/09/2021 2:09 PM SENIOR QA AUTOMATION ENGINEER documented as of this encounter Miscellaneous Notes Telephone Encounter - Michelle Loja - 11/16/2020 8:39 AM CDT What is the purpose of the call?: Requesting Testing Only Request Testing In the past 14 days are any of the following symptoms new to you and not related to an existing health condition?: New diarrhea, New headache, New loss of smell Because of symptoms, transfer patient to: : [place] COVID Nurse Line (End Screening) Symptom Onset Date of symptom onset: 11/12/20 Testing Recommendation Endpoint Is testing recommended? : Transferred to nursing call line Plan: Endpoint recommendation: Transferred to Nursing/COVID Line/Care Team *Reminder if sending patient for testing in [facility] or [facility], route encounter to the correct testing pool. documented in this encounter Plan of Treatment Not on filedocumented as of this encounter Visit Diagnoses Not on filedocumented in this encounter Care Teams Research Leader Relationship Specialty Start Date End Date Patricio Palmer M.D. PCP - General Family Medicine 12/18/[address] [place] [phone] documented as of this encounter
--- OUTSIDE RECORDS SUMMARY | 2022-02-22 12:32 | XMS_ITS | Encounter Summary ---
:1985 Author Organization [facility] Address [address] [place] [address] Care Team Providers Name Role Phone Patricio Palmer M.D. Primary Care Provider Reason for Visit Reason Comments Med Refill Encounter Details Date Type Department Care Team Description 08/14/2020 Refill Department of Neurology in Lina Pietro sheikh M.D. Med Refill [place], [place] [address] [facility] [address] [place] [address] [place] [address] [phone] Social History Tobacco Use Types Packs/Day Years [...] or relatives? How often do you attend jehovah's witness or 1 to 4 times per year 05/18 rastafari services? Do you belong to any clubs or No 06/09/2021 organizations such as jehovah's witness groups, unions, fraternal or athletic groups, or [...] place to sleep or slept in a retirement (including now)? Education Answer Date Recorded What is the highest level of school you have GED or equivale nt 12/19/2018 completed or the highest degree you have received? Sex Assigned at Date Recorded Female 06/09/2021 2:09 PM VACUUM CLEANER REPAIRER documented as of this encounter Plan of Treatment Not on filedocumented as of this encounter Visit Diagnoses Not on filedocumented in this encounter Care Teams Data Administrator Relationship Specialty Start Date End Date Patricio Palmer M.D. PCP - General Family Medicine 12/18/[address] [place] [phone] documented as of this encounter
--- OUTSIDE RECORDS SUMMARY | 2022-02-22 12:32 | XMS_ITS | Encounter Summary ---
:1985 Author Organization [facility] Address [address] [place] [address] Care Team Providers Name Role Phone Patricio Palmer M.D. Primary Care Provider Encounter Details Date Type Department Care Team Description 2021 Orders Only Department of Family Claudette Chavez , Medicine, [facility] [place] [address] [place] [address] Social History Tobacco Use Types Packs/Day Years [...] or relatives? How often do you attend latter day or 1 to 4 times per year 05/18 catholic services? Do you belong to any clubs or No 06/09/2021 organizations such as latter day groups, unions, fraternal or athletic groups, or [...] place to sleep or slept in a longterm (including now)? Education Answer Date Recorded What is the highest level of school you have GED or equivale nt 12/19/2018 completed or the highest degree you have received? Sex Assigned at Date Recorded Female 06/09/2021 2:09 PM TELEPHONE SERVICE REPRESENTATIVE documented as of this encounter Plan of Treatment Not on filedocumented as of this encounter Visit Diagnoses Not on filedocumented in this encounter Care Teams Accredited Farm Manager Relationship Specialty Start Date End Date Patricio Palmer M.D. PCP - General Family Medicine 12/18/[address] [place] [phone] documented as of this encounter
--- OUTSIDE RECORDS SUMMARY | 2022-02-22 12:32 | XMS_ITS | Encounter Summary ---
:1985 Author Organization [facility] Address [address] [place] [address] Care Team Providers Name Role Phone Patricio Palmer M.D. Primary Care Provider Reason for Referral Physical Therapy (Routine) - Closed Specialty Diagnoses / Procedures Referred By Contact Refer red To Contact Diagnoses Rotator Cuff Disorder Right Aftab Kang P.A.-C., [facility] Procedures PT Evaluate and treat M.S. [address] [place] [phone] Referral ID Status Reason Start Date Expiration Date Visits Requ ested Visits Authorized [id number] Closed 08/14/2020 07/16/2021 1 1 DROPPER Encounter Details Date Type Department Care Team Description 08/14/2020 Orders Only Department of [facility] Aftab Kang Rota tor Cuff Disorder Medicine, Sharif Layne, M.SFlex Right (Primary Dx) Clinic, in [address] [address] [place] [address] [phone] Social History Tobacco Use Types Packs/Day Years [...] at Date Recorded Female 06/09/2021 2:09 PM CAR DROPPER documented as of this encounter Plan of Treatment Not on filedocumented as of this encounter Visit Diagnoses Diagnosis Rotator Cuff Disorder Right - Primary documented in this encounter Care Teams Senior Storage Administrator Relationship Specialty Start Date End Date Patricio Palmer M.D. PCP - General Family Medicine 12/18/[address] [place] [address] [place] [phone] documented as of this encounter
--- OUTSIDE RECORDS SUMMARY | 2022-02-22 12:32 | XMS_ITS | Encounter Summary ---
:1985 Author Organization [facility] Address [address] [place] [address] Care Team Providers Name Role Phone Patricio Palmer M.D. Primary Care Provider Encounter Details Date Type Department Care Team Description 08/05/2020 Orders Only [facility], Medicine, [facility], in P.A. Sil., M.S. [address] [place] [address] [place] [address] [phone] Social History Tobacco Use Types Packs/Day Years [...] Date Recorded Female 06/09/2021 2:09 PM MANAGER LAND documented as of this encounter Plan of Treatment Not on filedocumented as of this encounter Visit Diagnoses Not on filedocumented in this encounter Care Teams Table Tender Relationship Specialty Start Date End Date Patricio Palmer M.D. PCP - General Family Medicine 12/18/[address] [place] [phone] documented as of this encounter
--- OUTSIDE RECORDS SUMMARY | 2022-02-22 12:32 | XMS_ITS | Encounter Summary ---
:1985 Author Organization [facility] Address [address] [place] [address] Care Team Providers Name Role Phone Patricio Palmer M.D. Primary Care Provider Encounter Details Date Type Department Care Team Description 04/29/2021 Admin Visit [employer] in [place], [place] [address] [place] [phone] Social History Tobacco Use Types Packs/Day Years [...] or relatives? How often do you attend nondenominational or 1 to 4 times per year 05/18 yazidism services? Do you belong to any clubs or No 06/09/2021 organizations such as nondenominational groups, unions, fraternal or athletic groups, or [...] place to sleep or slept in a care home (including now)? Education Answer Date Recorded What is the highest level of school you have GED or equivale nt 12/19/2018 completed or the highest degree you have received? Sex Assigned at Date Recorded Female 06/09/2021 2:09 PM INSPECTOR MISSILE documented as of this encounter Plan of Treatment Not on filedocumented as of this encounter Visit Diagnoses Not on filedocumented in this encounter Additional Health Concerns Infection Onset Date Last Indicated Resolved Time COVID19 Pending 04/29/2021 04/29/2021 04/30/2021 1:13 AM CDT documented as of this encounter Care Teams Manager Organizational Relationship Specialty Start Date End Date Patricio Palmer M.D. PCP - General Family Medicine 12/18/[address] [place] [phone] documented as of this encounter
--- OUTSIDE RECORDS SUMMARY | 2022-02-22 12:32 | XMS_ITS | Encounter Summary ---
:1985 Author Organization [facility] Address [address] [place] [address] Care Team Providers Name Role Phone Patricio Palmer M.D. Primary Care Provider Encounter Details Date Type Department Care Team Description 05/05/2020 Orders Only Department of Neurology in [place], [place] [address] [facility] [address] [place] [address] [place], [place] [phone] (Wo rk) Social History Tobacco Use Types [...] 1 to 4 times per year 05/18 episcopalian services? Do you belong to any clubs [...] at Date Recorded Female 06/09/2021 2:09 PM WRAPPER REWINDER documented as of this encounter Plan of Treatment Not on filedocumented as of this encounter Visit Diagnoses Not on filedocumented in this encounter Additional Health Concerns Infection Onset Date Last Indicated Resolved Time MRSA 04/20/2020 04/20/2020 07/19/2020 4:45 AM WRAPPER REWINDER documented as of this encounter Care Teams Citrus Picker Relationship Specialty Start Date End Date Patricio Palmer M.D. PCP - General Family Medicine 12/18/[address] [place] [address] [address] documented as of this encounter
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
--- OUTSIDE RECORDS SUMMARY | 2022-02-22 12:32 | XMS_ITS | Encounter Summary ---
:1985 Author Organization [facility] Address [address] [place] [address] Care Team Providers Name Role Phone Patricio Palmer M.D. Primary Care Provider Reason for Visit Reason Comments COVID Inquiry KAMLA Odonnell Encounter Details Date Type Department Care Team Description 04/29/2021 Clinical Communication Department of Patricio Palmer COV ID Inquiry; KAMLA Family [facility]) [facility], in [address] [place] [address] [place], [place] [phone] (Work) [phone] Social History Tobacco Use Types Packs/Day Years [...] or relatives? How often do you attend adventism or 1 to 4 times per year 05/18 voodoo services? Do you belong to any clubs or No 06/09/2021 organizations such as adventism groups, unions, fraternal or athletic groups, or [...] place to sleep or slept in a long term (including now)? Education Answer Date Recorded What is the highest level of school you have GED or equivale nt 12/19/2018 completed or the highest degree you have received? Sex Assigned at Date Recorded Female 06/09/2021 2:09 PM ORACLE SECURITY CONSULTANT documented as of this encounter Miscellaneous Notes Telephone Encounter - Margaret Vega - 05/24/2021 10:45 AM CST PA request for Vimpat 100 mg tablets sent to [facility] electronically. LE SECURITY CONSULTANT Telephone Encounter - Crystal Camara - 04/29/2021 11:12 AM CDT What is the purpose of the call?: Requesting Testing Only Request Testing In the past 14 days are any of the following symptoms new to you and not related to an existing health condition?: No symptoms noted In the past 14 days have you had close contact* with a person who has a LABORATORY CONFIRMED case ofCOVID-19?: Yes exposure noted. [place] patient, instruct to quarantine, testing indicated (End Screening) Testing Recommendation Endpoint Is testing recommended? : Recommended to test Plan: Endpoint recommendation: Patient is asymptomatic with exposure to a COVID-19 positive individual. Instructed to quarantine for 14 days because they are not fully vaccinated or vaccination series has been less than 2 weeks. *Reminder if sending patient for testing in [facility] or [facility], route encounter to the correct testing pool. documented in this encounter Plan of Treatment Not on filedocumented as of this encounter Visit Diagnoses Not on filedocumented in this encounter Additional Health Concerns Infection Onset Date Last Indicated Resolved Time COVID19 Pending 04/29/2021 04/29/2021 04/30/2021 1:13 AM CDT COVID19 04/29/2021 04/29/2021 05/19/2021 4:45 AM CDT documented as of this encounter Care Teams Art Editor Relationship Specialty Start Date End Date Patricio Palmer M.D. PCP - General Family Medicine 12/18/[address] [place] [phone] documented as of this encounter
--- OUTSIDE RECORDS SUMMARY | 2022-02-22 12:33 | XMS_ITS | Encounter Summary ---
:1985 Author Organization [facility] Address [address] [place] [address] Care Team Providers Name Role Phone Patricio Palmer M.D. Primary Care Provider Reason for Visit Appointment Request (Routine) - Closed Specialty Diagnoses / Procedures Referred By Contact Refer red To Contact Pediatrics Referral ID Status Reason Start Date Expiration Date Visits Requ ested Visits Authorized [id number] Closed 09/20/2019 09/19/2020 1 1 Encounter Details Date Type Department Care Team Description 09/20/2019 Clinical Support Department of Pediatric Bernadine Thomas R.N. Specialty in [place], [address] [place] [address] [address] [facility] [address] [place] [address] [phone] Social History Tobacco Use Types Packs/Day Years [...] at Date Recorded Female 06/09/2021 2:09 PM MUCKER COFFERDAM documented as of this encounter Plan of Treatment Not on filedocumented as of this encounter Visit Diagnoses Not on filedocumented in this encounter Care Teams Tan Room Supervisor Relationship Specialty Start Date End Date Patricio Palmer M.D. PCP - General Family Medicine 12/18/[address] [place] [phone] documented as of this encounter
--- OUTSIDE RECORDS SUMMARY | 2022-02-22 12:33 | XMS_ITS | Encounter Summary ---
:1985 Author Organization [facility] Address [address] [place] [address] Care Team Providers Name Role Phone Patricio Palmer M.D. Primary Care Provider Reason for Visit Reason Onset Date Comments Follow-up 09/18/2019 Encounter Details Date Type Department Care Team Description 09/18/2019 Clinical Communication Department of [facility] Cristin Adler, Follow-up Medicine, Eduarda DUEÑAS C.N.P., Clinic, in [place] [address] [place], [place] [phone] Social History Tobacco Use Types Packs/Day Years [...] at Date Recorded Female 06/09/2021 2:09 PM BOREMATIC OPERATOR documented as of this encounter Miscellaneous Notes Telephone Encounter - Emmie Palacios - 09/19/2019 11:44 AM CST Returned call to patient and provided her with recommendations from Ese Adler regarding prednisone, and follow up if not feeling better after prednisone. Patient verbalized understanding. No further questions. MATIC OPERATOR Telephone Encounter - Emmie Palacios - 09/19/2019 11:36 AM CST Left voice message for patient to return call to clinic. Need to provide her with information from Ese Adler MATIC OPERATOR Telephone Encounter - Ese Adler APRN, C.N.P., M.S.N. - 09/19/2019 11:28 AM CST Please call the patient and let her know the below message, am not sure if Emmie is here today so I wrote of this to the pool. The prednisone should be at the pharmacy for her. MATIC OPERATOR Telephone Encounter - Ese Adler APRN, C.N.P., M.S.N. - 09/19/2019 11:27 AM CST I have sent over a prescription for prednisone 40 mg daily for 5 days. She should take this in the mornings with food. If she is not resolving after that time frame she should follow-up. MATIC OPERATOR Telephone Encounter - Emmie Palacios - 09/18/2019 2:28 PM CST Ese, Patient calls today and states she is still struggling with wheezing. She was seen on 09/16/19 and given zithromax, albuterol inhaler, and codeine guaifensesin. She has been using all of these and does not feel like she is improving. She said she was told to let you know if she wasn't getting better. Wondering if you would like to try prenisone as stated in last visit note. Please advise. Thank You Visit note from 09/16/19 2. Nicotine Dependence Cigarettes The patient will start Zithromax 5 day coarse of treatment. I prescribed her an albuterol inhaler aswell to use every 4 hours PRN for shortness of breath and wheezing. She has a productive cough, we discussed using Mucinex during the day, I did give her codeine guaifenesin cough syrup for nighttime use only. She has had previous allergies to narcotics however has used codeine with no reaction. She is aware she should not work or drive on this medication or within 6-8 hours of taking it. If the shortness of breath and wheezing is not improving with the use of albuterol we discussed possible prednisone, she will let me know if she is not getting better. ?? MATIC OPERATOR Telephone Encounter - Sheridan Cazares - 09/18/2019 2:16 PM CST Please do not reply to sender,emails are not monitored. Thank you. If you need a prescription refill please call your pharmacy. Please allow 3 business days for processing. Expert RN: N/A (Med Refill Only) Call Center Template: ??? May we leave a message for you on this phone? yes What can I help you with today? Patient is still coughing and wheezing even with the antibiotic she got. Please call to advise. ??? If Medication Refill: o What is [...] you with today? Thank you for calling [facility]. MATIC OPERATOR documented in this encounter Plan of Treatment Not on filedocumented as of this encounter Visit Diagnoses Not on filedocumented in this encounter Care Teams Senior Solutions Consultant Relationship Specialty Start Date End Date Patricio Palmer M.D. PCP - General Family Medicine 12/18/[address] [place] [phone] documented as of this encounter
--- OUTSIDE RECORDS SUMMARY | 2022-02-22 12:33 | XMS_ITS | Encounter Summary ---
:1985 Author Organization [facility] Address [address] [place] [address] Care Team Providers Name Role Phone Patricio Palmer M.D. Primary Care Provider Reason for Referral Outpatient (Routine) - Closed Specialty Diagnoses / Procedures Referred By Contact Refer red To Contact Diagnoses Abscess Skin Aftab Kang P.A.-C., [facility] Procedures Incision and Drainage M.S. [address] [place] [phone] Referral ID Status Reason Start Date Expiration Date Visits Requ ested Visits Authorized [id number] Closed 04/20/2020 04/20/2021 1 1 Reason for Visit Reason Comments Abscess Appointment Request (Routine) - Closed Specialty Diagnoses / Procedures Referred By Contact Refer red To Contact Family Medicine Referral ID Status Reason Start Date Expiration Date Visits Requ ested Visits Authorized [id number] Closed 04/20/2020 04/20/2021 1 1 Encounter Details Date Type Department Care Team Description 04/20/2020 Office Visit Department of Family Aftab Kang Absc ess Skin (Primary Medicine, Sharif Layne, M.S. Dx) Clinic, in [place] [address] [address] [facility] [address] [place] [address] [phone] Social History Tobacco Use Types Packs/Day Years Used Date Smoking Tobacco: Every Day Cigarettes 0.5 Smokeless Tobacco: Never Tobacco Cessation: Ready to Quit: No; Co unseling Given: Yes Alcohol Use Standard Drinks/Week Comments No 0 [...] or relatives? How often do you attend hindu or 1 to 4 times per year 05/18 congregation services? 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 - 04/20/2020 9:00 AM CDT SUBJECTIVE CHIEF COMPLAINT / REASON FOR VISIT Abscess HISTORY OF PRESENT ILLNESS Luisa Coulter is a 35 y.o. female who presents for evaluation of possible skin abscess to her right chin. She states that she started noticing the skin abnormality approximately 2 days ago. Shestates that it is getting bigger. It is painful. No spontaneous drainage. She has tried applying warm compresses without any alleviation or drainage. She states that her daughter does have a past medical history significant for MRSA. She is able to eat and drink normally without issue. She does not have a past medical history significant for abscesses in the past. The patient's medical history, social history, problem list, medications and allergies were reviewedin the electronic medical record. REVIEW OF SYSTEMS The following systems were negative: Constitutional, Skin, Eyes, ENT, CV, Respiratory, GI, , Hematologic, Musculoskeletal, Neuro, Psych CURRENT MEDICATIONS Current Outpatient Medications on File [...] 0 ??? lamoTRIgine (LaMICtal) 100 mg tablet Take 200 mg by mouth 2 (two) times a day. 11 ??? lamoTRIgine (LaMICtal) 100 mg tablet TAKE [...] (two) times a day.120 tablet 5 ??? naproxen (NAPROSYN) 500 mg tablet Take [...] prior to visit. OBJECTIVE VITAL SIGNS BP 122/76 (BP Location: Right arm, Patient Position: Sitting, Cuff Size: Regular) Pulse 92 Temp 36.1 ??C (Temporal) Resp 18 Wt 61 kg BMI 24.59 kg/m?? PHYSICAL EXAMINATION Vitals signs reviewed. Constitutional General: She is awake. She is not in acute distress. Appearance: She is not ill-appearing or toxic-appearing. HENT Head: Mouth/Throat: Mouth: Mucous membranes are moist. No oral lesions. Dentition: Abnormal dentition. Pharynx: Oropharynx is clear. Uvula midline. No pharyngeal swelling, oropharyngeal exudate or posterior oropharyngeal erythema. Skin General: Skin is warm and dry. Comments: No significant erythema to skin of face. Neurological Mental Status: She is alert. Psychiatric Behavior: Behavior is cooperative. DIAGNOSTICS No results found. ASSESSMENT / PLAN #1 Abscess Skin Exam consistent with cutaneous skin abscess the right chin. Incision and drainage completed today, please see procedure note for full details. Swab completed given family history of her daughter havingMRSA. Will treat with Bactrim. Follow-up: Follow-up if not improving or if worsening. documented in this encounter Procedure Notes Aftab Kang P.A.-C., M.S. - 04/20/2020 9:00 AM CDTAssociated Order(s): Incision and Drainage Post-Procedure Diagnose(s): Abscess Skin Incision and Drainage Date/Time: 04/20/2020 9:15 AM Performed by: Aftab Kang P.A.-C., MFlexSFlex Authorized by: Aftab Kang P.A.-C., M.S. Care team members present 1. Aftab Kang P.A.-C., MFlexSFlex 2. Perla Alvarado L.P.N. PROCEDURE DETAILS Complexity: Simple Ultrasound guidance: no Needle aspiration: no Incision types: Single straight Incision depth: Dermal Scalpel blade: 15 Wound management: Irrigated with saline, probed and deloculated and manually decompressed Drainage: Purulent Drainage amount: Moderate Wound treatment: Wound left open Procedural Medication The following medications were administered at the target site(s): 2 mL lidocaine-EPINEPHrine 1 %-1:100,000 CONSENT Consent obtained: verbal Consent given by: patient The benefits, risks and alternatives to the procedure and the potential need for sedation or anesthesia as well as the names, roles, and responsibilities of healthcare team members performing significant interventional tasks were discussed with the patient and/or decision maker. UNIVERSAL PROTOCOL All relevant documentation and testing were reviewed and available. All required blood products, implants, devices and or special equipment were made available as applicable. Pre-procedure verificationwas conducted and the correct site was marked if required. A fire risk assessment was done as applicable. The procedural time-out was conducted prior to performing the procedure and confirmed in a procedural pause. PRE PROCEDURE DETAILS Indication: Abscess Location: Face Face location: Chin Length (cm): 2 Width (cm): 2 Site preparation: Chlorhexidine SEDATION / ANESTHESIA Anesthesia method: local infiltration Local infiltrate type: lidocaine 1% WITH epi POST PROCEDURE DETAILS Procedure completed successful: yes Tetanus status up to date: Up to date Complications: no immediate complications documented in this encounter Plan of Treatment Not on filedocumented as of this encounter Procedures Procedure Name Priority Date/Time Associated Diagnosis Comme nts BACTERIAL CULTURE, Routine 04/20/2020 9:21 AM Abscess Skin Res ults for this AEROBIC + SUSC CDT procedure are in the results section. INCISION AND Routine 04/20/2020 9:00 AM Abscess Skin Results f or this DRAINAGE CDT procedure are i n the results section. documented in this encounter Results (ABNORMAL) Bacterial Culture, Aerobic + Susc (04/20/2020 9:21 AM CDT) Component Value Ref Test Analysis Performed At [facility] gist Range Method Time Signature Bacterial STAPHYLOCOCCUS AUREUS 04/22/2020 [place] Culture, 1+ 7:39 AM CDT Aerobic + (A) Susc Comment: Methicillin Resistant Staphylococcus aur eus (MRSA). Semi-Urgent Result. Semi-Urgent This is a semi-urgent result ([place]) [facility] Specimen Anatomical Collection Method Collection Time Receive d Time (Source) Location / / Volume Laterality Swab (Face) 04/20/2020 9:21 AM 0 2:22 CDT PM CDT Comment: Specimen Source Site: Swab Organism Antibiotic Method Susceptibility Staphylococcus aureus Oxacillin SUSCEPTIBILITY, DAVI (MCG/M L) >=4 mcg/mL: Resistant Comment: Use oxacillin interpretation to predict results for anti-staphylococcal beta-lac campbell antibiotics (except ceftaroline). Staphylococcus aureus Gentamicin SUSCEPTIBILITY, DAVI <=0.5 mcg/mL: (MCG/ML) Susceptible Staphylococcus aureus Ciprofloxacin SUSCEPTIBILITY, DAVI <=0.5 mcg/mL: (MCG/ML) Susceptible Staphylococcus aureus Levofloxacin SUSCEPTIBILITY, DAVI <=0.12 mcg/mL: (MCG/ML) Susceptible Staphylococcus aureus Moxifloxacin SUSCEPTIBILITY, DAVI <=0.25 mcg/mL: (MCG/ML) Susceptible Staphylococcus aureus Erythromycin SUSCEPTIBILITY, DAVI >=8 mc g/mL: Resistant (MCG/ML) Staphylococcus aureus Clindamycin SUSCEPTIBILITY, DAVI >=4 mc g/mL: Resistant (MCG/ML) Staphylococcus aureus Linezolid SUSCEPTIBILITY, DAVI 2 mcg/ mL: Susceptible (MCG/ML) Staphylococcus aureus Daptomycin SUSCEPTIBILITY, DAVI 0.5 mc g/mL: (MCG/ML) Susceptible Staphylococcus aureus Vancomycin SUSCEPTIBILITY, DAVI 1 mcg/ mL: Susceptible (MCG/ML) Staphylococcus aureus Doxycycline SUSCEPTIBILITY, DAVI <=0.5 mcg/mL: (MCG/ML) Susceptible Staphylococcus aureus Tetracycline SUSCEPTIBILITY, DAVI <=1 mc g/mL: (MCG/ML) Susceptible Staphylococcus aureus Rifampin SUSCEPTIBILITY, DAVI <=0.5 mcg/mL: (MCG/ML) Susceptible Comment: Rifampin should not be used as monotherapy Staphylococcus aureus Trimethoprim + SUSCEPTIBILITY, DAVI <=10 m cg/mL: Sulfamethoxazole (MCG/ML) Susceptible Aftab Kang P.A.-C., M.S. LAB MICROBIOLOGY - GENERAL ORDERABLES Performing Organization Address City/State/ZIP Code Phon e Number [facility]- [address] [place] [id number] [place] [address] System in [place] [address] [facility] PROCEDURE PLACEHOLDER (04/20/2020 9:00 AM CDT) Narrative [facility] - 04/20/2020 9:00 AM CDT Aftab Kang P.A.-C., M.S. ? 04/20/2020 10:40 AM Incision and Drainage Date/Time: 04/20/2020 9:15 AM Performed by: Aftab Kang P.A.-C., M .S. Authorized by: Aftab Kang P.A.-C., M.S. Care team members present 1. Aftab Kang P.A.-C., M.S. 2. Perla Alvarado, LFlexPFlexNFlex PROCEDURE DETAILS Complexity: ??Simple Ultrasound guidance: no ?? Needle aspiration: no ?? Incision types: ??Single straight Incision depth: ??Dermal Scalpel blade: ??15 Wound management: ??Irrigated with salin e, probed and deloculated and manually decompressed Drainage: ??Purulent Drainage amount: ??Moderate Wound treatment: ??Wound left open Procedural Medication The following medications were administe red at the target site(s): ?? 2 mL lidocaine-EPINEPHrine 1 %-1:100,000 CONSENT Consent obtained: verbal Consent given by: patient The benefits, risks and alternatives to the procedure and the potential need for sedation or anesthesia as well as the names, roles, and responsibilities of healthcare team memb ers performing significant interventional tasks were discussed with the patient and/or decision maker. UNIVERSAL PROTOCOL All relevant documentation and testing w ere reviewed and available. All required blood products, implants, devic es and or special equipment were made available as applicable. Pre-proced ure verification was conducted and the correct site was marked if required. A fire risk assessment was done as applicable. The procedural time-out w as conducted prior to performing the procedure and confirmed in a procedu ral pause. PRE PROCEDURE DETAILS Indication: ??Abscess Location: ??Face Face location: ??Chin Length (cm): ??2 Width (cm): ??2 Site preparation: ??Chlorhexidine SEDATION / ANESTHESIA Anesthesia method: local infiltration Local infiltrate type: lidocaine 1% WITH epi POST PROCEDURE DETAILS Procedure completed successful: yes ?? Tetanus status up to date: ??Up to date Complications: no immediate complication s ?? Aftab Kang P.A.-C., M.S. PROCEDURE/MINOR SURGICAL O RDERABLES Performing Organization Address City/State/ZIP Code Phon e Number [facility] NA documented in this encounter Visit Diagnoses Diagnosis Abscess Skin - Primary documented in this encounter Administered Medications Inactive Administered Medications - up to 3 most recent administrations Medication Order MAR Action Action Date Dose Rate Site lidocaine-EPINEPHrine 1 %-1:100,000 Given 04/20/2020 9:15 AM CDT 2 mL injection 2 mL (XYLOCAINE W/EPI) 2 mL, infiltration, One-Time Injection, Starting on 04/20/20 at 0915, For 1 dose documented in this encounter Care Teams Gunite Nozzle Operator Relationship Specialty Start Date End Date Patricio Palmer M.D. PCP - General Family Medicine 12/18/[address] [place] [phone] documented as of this encounter
--- OUTSIDE RECORDS SUMMARY | 2022-02-22 12:33 | XMS_ITS | Encounter Summary ---
:1985 Author Organization [facility] Address [address] [place] [address] Care Team Providers Name Role Phone Patricio Palmer M.D. Primary Care Provider Encounter Details Date Type Department Care Team Description 09/19/2019 Orders Only Department of [facility] Ese Adler APRN , Medicine, [facility], in [place] P., M.S.N. 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 PCP - General Family Medicine 12/18/[address] [place] [phone] documented as of this encounter
--- OUTSIDE RECORDS SUMMARY | 2022-02-22 12:33 | XMS_ITS | Encounter Summary ---
:1985 Author Organization [facility] Address [address] [place] [address] Care Team Providers Name Role Phone Patricio Palmer M.D. Primary Care Provider Reason for Referral Outpatient (Routine) - Closed Specialty Diagnoses / Procedures Referred By Contact Refer red To Contact Orthopedic Surgery Jitendra Ocasio D.P .M. [address] [phone] Referral ID Status Reason Start Date Expiration Date Visits Requ ested Visits Authorized [id number] Closed 03/27/2019 03/26/2020 1 1 Reason for Visit Reason Comments Pain Appointment Request (Routine) - Closed Specialty Diagnoses / Procedures Referred By Contact Refer red To Contact Podiatry Referral ID Status Reason Start Date Expiration Date Visits Requ ested Visits Authorized [id number] Closed 03/04/2019 03/03/2020 1 Encounter Details Date Type Department Care Team Description 03/27/2019 Comprehensive Visit Department of Jitendra Ocasio rsalgia Right Orthopedic Surgery Leena Patel (Primary Dx) in [address] [address] [place], [place] [phone] (Work) [phone] Social History Tobacco Use Types Packs/Day Years [...] at Date Recorded Female 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 - 03/27/2019 10:00 AM CDT See dictation documented in this encounter Plan of Treatment Scheduled Referrals Name Type Priority Associated Order Schedule Diagnoses Orthopedic Surgery Outpatient Referral Routine Ex pected: office visit 03/27/2019 (clinic) (Approximate), Expires: 03/27/2022 documented as of this encounter Visit Diagnoses Diagnosis Metatarsalgia Right - Primary documented in this encounter Care Teams Professional Organizer Relationship Specialty Start Date End Date Patricio Palmer M.D. PCP - General Family Medicine 12/18/[address] [place] [phone] documented as of this encounter
--- OUTSIDE RECORDS SUMMARY | 2022-02-22 12:33 | XMS_ITS | Encounter Summary ---
:1985 Author Organization [facility] Address [address] [place] [address] Care Team Providers Name Role Phone Patricio Palmer M.D. Primary Care Provider Encounter Details Date Type Department Care Team Description 03/04/2019 Hospital Encounter Department of Pietro Pickett epsmaru Seizure Not Laboratory Medicine Pippa Zuluaga Intractable Without in [place], [address] [facility] Status Epilepticus [place], [place] ([facility]) [address] [facility] [address] [place], [place] [phone] (Work) [phone] Social History Tobacco Use Types Packs/Day Years [...] or relatives? How often do you attend evangelical or 1 to 4 times per year 05/18 hinduism services? 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 Takes 4 tablet (2,000mg total) by mouth as needed for headaches lamoTRIgine (LaMICtal) Take 2 tablets (200 120 [...] time after 2 hours if needed. lacosamide (VIMPAT) 100 Take 3 tablets (300 90 tablet 5 03/08/2019 mg tablet mg total) by mouth as directed. 1 tab am, 2 tabs pm lacosamide (VIMPAT) 100 Take 1 tablet (100 60 tablet 5 02/1503/11/2019 mg tabletIndications: mg total) by mouth 2 Epilepsy Seizure Not (two) times a day. 1 Intractable Without tab am, 2 tabs pm Status Epilepticus (HCC) LORazepam (ATIVAN) 1 mg Take 1-2 tablets 2 tablet 0 201809/16/2019 tablet (1-2 mg total) by mouth See Admin Instructions. Take 30 minutes prior to procedure. documented as of this encounter Plan of Treatment Not on filedocumented as of this encounter Procedures Procedure Name Priority Date/Time Associated Diagnosis Comme nts LAMOTRIGINE LEVEL, S Routine 03/04/2019 9:27 AM Epilepsy Seizu re Not Results for this CDT Intractable Without procedur e are in Status Epilepticus the resul ts (HCC) section. documented in this encounter Results Lamotrigine Level (03/04/2019 9:27 AM CDT) P athologist Signature Lamotrigine, S 3.2 2.5 - 15.0 03/05/2019 mcg/mL 11:44 AM CDT Comment: ----ADDITIONAL INFORMATION---- This test was developed and its performa nce characteristics determined by [facility] in a manner consistent with CLIA requirements. This test has not been cleared or approved by the [place] and Drug Administration. Specimen Anatomical Collection Method Collection Time Receive d Time (Source) Location / / Volume Laterality Blood (Blood, 03/04/2019 9:27 AM 03/05/20 19 7:32 Venous) CDT AM CDT Pietro Pickett M.D. LAB BLOOD NON ADD-ON Performing Organization Address City/State/ZIP Code Phon e Number [facility] [address] [place], [place] [address] [facility] documented in this encounter Visit Diagnoses Diagnosis Epilepsy Seizure Not Intractable Without Status Epilepticus (HCC) documented in this encounter Care Teams Group Tester Relationship Specialty Start Date End Date Patricio Palmer M.D. PCP - General Family Medicine 12/18/[address] [place] [phone] documented as of this encounter
--- OUTSIDE RECORDS SUMMARY | 2022-02-22 12:33 | XMS_ITS | Encounter Summary ---
:1985 Author Organization [facility] Address [address] [place] [address] Care Team Providers Name Role Phone Patricio Palmer M.D. Primary Care Provider Reason for Visit Reason Comments Cough coughing since september, sob si nce then as well. sweaty/chills started last few days. hx of seizures. Triage line called ID, ID wants her tested. Chest tightness Encounter Details Date Type Department Care Team Description 10/03/2019 Emergency [facility] BhavnaPrecious, Cough (Primary Dx); Department P.A.-C. Nicotine Dependence Cigarettes With With drawal; [address] Bronchitis [place] [address] EMEKA Lerner [phone] [address] Social History Tobacco Use Types Packs/Day Years [...] 1 to 4 times per year 05/18 yarsanism services? 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 - 10/03/2019 10:40 AM CDT Continue albuterol inhaler every 4-6 hours. Robitussin CF cough syrup Tylenol if needed for fever. Will call with influenza swab and mcqueen virus swab when the are available. Patient is to be quarantine in the home until they get the mcqueen virus results. Return if symptoms worsen or change. Recommend discontinuing smoking. documented in this encounter Medications at Time of Discharge Medication Sig Dispensed Refills Start Date End Date ACETAMINOPHEN ORAL Take 500 mg by mouth 0 016 as needed. Takes 4 tablet (2,000mg total) by mouth as needed for headaches albuterol (ProAir HFA) Inhale 2 puffs every 25.5 g 3 08/2019 90 mcg/actuation inhaler 4 (four) hours as needed for wheezing or shortness of breath. lamoTRIgine (LaMICtal) Take 2 tablets (200 120 [...] one time after 2 hours if needed. codeine-guaiFENesin Take 5 mL by mouth 120 mL 0 10/03/19 20 01/21/2020 (ROBITUSSIN-AC) 10-100 every 4 (four) hours mg/5 mL liquid as needed for cough or congestion. lamoTRIgine (LaMICtal) Take 200 mg by mouth 11 06/09/2021 100 mg tablet 2 (two) times a day. lamoTRIgine (LaMICtal) TAKE 2 TABLETS (200 360 tablet 3 08/1708/14/2020 100 mg tablet MG TOTAL) BY MOUTH 2 (TWO) TIMES A DAY. Vimpat 100 mg TAKE 1 TABLET (100 60 tablet 5 08/28/2019 tabletIndications: MG TOTAL) BY MOUTH 2 Epilepsy Seizure Not (TWO) TIMES A DAY. Intractable Without Status Epilepticus (HCC) documented as of this encounter ED Notes Precious Huggins P.A.-C. - 10/03/2019 10:51 AM CDT SUBJECTIVE CHIEF COMPLAINT/REASON FOR VISIT Cough (coughing since september, sob since then as well. sweaty/chills started last few days. hx of seizures. Triage line called ID, ID wants her tested. Chest tightness) HISTORY OF PRESENT ILLNESS 34-year-old female presents to the ER after calling the [employer] hotline and was asked to come in sofya checked. Patient states that she has had a cough since the September. He was actually seen September 16, 2019 in the clinic diagnosed with bronchitis. She was placed on a Z-Omer cough syrup and a albuterol inhaler. Patient is a known smoker. At the time of her visit on September 15 she was short of breath she had moderate coughing at night. The cough was productive. She did not have any fevers. Shehad been using her boyfriend's albuterol. She has not really had any significant respiratory issues.Patient has not recently traveled. No known exposure to anybody ill. She was sent to the ER by the nurse line because she has a history of migraines and seizures which makes her at more susceptible risk for viral syndromes. This is according to the nurse line. On arrival patient has minimal congestionrunny nose she has not coughed during her evaluation. She does states she feels a little bit wheezy yet 10 uses her albuterol inhaler when she feels wheezy patient's continue to smoke throughout her entire illness and antibiotic treatment back on September 16, 2019. Patient does not work outside the home. Past Medical History: Diagnosis Date ??? Conversion Disorder With Seizures Or Convulsions ??? 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 Leak Amniotic Fluid ??? 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 Seizure (HCC) ??? Spontaneous Onset Of Labor After 37 Completed Weeks Of Gestation But Before 39 Completed Weeks Gestation With Delivery By Planned Section (HCC) 11/21/2014 ??? Stone Kidney No current facility-administered medications on file prior to encounter. Current Outpatient Medications on File Prior to Encounter Medication Sig Dispense Refill ??? ACETAMINOPHEN ORAL Take 500 mg by mouth as needed. Takes 4 tablet (2,000mg total) by mouth as needed for headaches ??? albuterol (ProAir HFA) 90 mcg/actuation inhaler Inhale 2 puffs every 4 (four) hours as needed for wheezing or shortness of breath. 25.5 g 3 ??? lamoTRIgine (LaMICtal) 100 mg tablet Take [...] TIMES A DAY. 60 tablet 5 ??? [DISCONTINUED] codeine-guaiFENesin (ROBITUSSIN-AC) 10-100 mg/5 mL liquid Take 5 mL by mouth every 4 (four) hours as needed for cough or congestion. 120 mL 0 ??? SUMAtriptan (IMITREX) 50 mg tablet Take 1 tablet (50 mg total) by mouth once as needed for migraine for up to 1 dose. May repeat one time after 2 hours if needed. 9 tablet 5 Allergies Allergen Reactions ??? Tramadol Hives and Rash Social History Socioeconomic History ??? Marital status: Single Spouse name: None ??? Number of children: None ??? Years of education: None ??? Highest education level: GED or equivalent Occupational History ??? None Social Needs ??? Financial resource strain: Not very hard ??? Food insecurity Worry: Never true Inability: Never true ??? Transportation needs Medical: No Non-medical: No Tobacco Use ??? Smoking status: Current Every Day Smoker Packs/day: 0.50 Types: Cigarettes ??? Smokeless tobacco: Never Used Substance and Sexual Activity ??? Alcohol use: No Frequency: Never Binge frequency: Never ??? Drug use: No ??? Sexual activity: Yes Partners: Male control/protection: None Lifestyle ??? Physical activity Days per week: 0 days Minutes per session: 0 min ??? Stress: To some extent Relationships ??? Social connections Talks on phone: None Gets together: More than three times a week Attends yarsanism service: Never Active member of club or organization: No Attends meetings of clubs or organizations: None Relationship status: Never ??? Intimate partner violence Fear of current or ex partner: None Emotionally abused: None Physically abused: None Forced sexual activity: None Other Topics Concern ??? None Social History Narrative ??? None Family History Problem Relation Age of Onset ??? Seizures Mother ??? Alcohol abuse Mother ??? Seizures Brother ??? Alcohol abuse Brother REVIEW OF SYSTEMS Constitutional: Positive for chills and diaphoresis. Negative for fever (patient does not really know since she uses tylenol frequently over the day for headaches). HENT: Positive for congestion and rhinorrhea. Eyes: Negative. Respiratory: Positive for cough, shortness of breath and wheezing. Cardiovascular: Negative. Gastrointestinal: Negative. Endocrine: Negative. Musculoskeletal: Negative. Neurological: Positive for seizures. Psychiatric/Behavioral: Negative. OBJECTIVE Initial Vitals [10/03/19 1021] Temperature Pulse Rate Heart Rate Resp Rate Blood Pressure SpO2 36.7 ??C 83 -- 20 (!) 128/94 95 % Pain Score 0 - No pain PHYSICAL EXAMINATION Constitutional: Nursing note and vitals reviewed. No distress. HENT: Head: Normocephalic and atraumatic. Right Ear: Tympanic membrane normal. Left Ear: Tympanic membrane normal. Nose: Nasal discharge (clear) present. Mouth/Throat: Oropharynx is clear and moist. Mucous membranes are moist. Dental: Good dentition. Eyes: Conjunctivae and EOM are normal. Pupils are equal, round, and reactive to light. Extraocular Movements: EOM normal. Neck: Normal range of motion. Cardiovascular: Normal rate, regular rhythm, S1 normal, S2 normal and normal heart sounds. Pulses are strong and palpable. Capillary refill: takes less than 3 seconds, Pulmonary/Chest: Effort normal. There is normal air entry. She has wheezes (Patient does have expiratory bronchial wheezing. As well as some generalized wheezing throughout.). Musculoskeletal: Normal range of motion. Neurological: She is alert and oriented to person, place, and time. She has normal reflexes. Skin: Skin is warm. Psychiatric: She has a normal mood and affect. Results for orders placed or performed during the hospital encounter of 10/03/19 Influenza A/B and RSV, PCR, Point of Care Result Value Ref Range Influenza A, B, RSV, PCR, POCT Collected Influenza A/B and RSV, PCR, Point of Care Result Value Ref Range Influenza A, POCT Negative Negative Influenza B, POCT Negative Negative Resp Synctial Virus, POCT Negative Negative Covid 19 Testing pending. ASSESSMENT/PLAN Impression and Plan 34-year-old female presents to the ER no apparent distress vitals are stable she looks nontoxic. Patient is a known smoker. Has continued to smoke throughout her recent bronchial illness starting on September 14. Patient's overall physical exam is relatively negative. She has got some mild bronchial wheezing however with her significant history of smoking this may be normal. Her O2 sats are normal she is not hypoxic. She is not tachycardic or febrile. Seems like the long wheezing improves when she clears or coughs. Patient's cough is very minimal it is productive. Patient did not have an influenza vaccine her influenza is negative. We are testing her for CoVid 19. This will take anywhere from 2-3 days to report back. Patient is still has bronchitis. Secondary to nicotine addiction. Patient will needto be rechecked quarantined in her home until those results have come back and she is notified. Her entire family will need to be quarantined at this time. Patient is to use her neb and albuterol treatments every 4-6 hours. I do not think she warrants at this time additional prednisone if she was positive I think this would worsened symptoms. It may be something to consider if her Covid 19 results are negative. I think ultimately this patient just has kind of a chronic cough secondary to her nicotine addiction. Instruct her that she probably needs to quit smoking at this time. She can try some over- the-counter nicotine patches or other things to help with that. I did refill her coating cough syrupat this time. Patient be discharged in stable condition. Final Diagnoses: as of Oct 02 141 Cough Nicotine Dependence Cigarettes With Withdrawal Bronchitis Precious Huggins P.A.-C. 10/03/19 1413 documented in this encounter Plan of Treatment Not on filedocumented as of this encounter Procedures Procedure Name Priority Date/Time Associated Diagnosis Comme nts INFLUENZA A, B, Routine 10/03/2019 11:06 AM Resul ts for this RSV, PCR, POCT CDT procedure are in the results section. SARS CORONAVIRUS-2, STAT 10/03/2019 10:39 AM R esults for this PCR CDT procedure are i n the results section. INFLUENZA A, B, STAT 10/03/2019 10:39 AM Resul ts for this RSV, PCR, POCT CDT procedure are in the results section. documented in this encounter Results Influenza A/B and RSV, PCR, Point of Care (10/03/2019 11:06 AM CDT) P athologist Signature Influenza A, Negative Negative 10/03/2019 [facility] POCT 11:06 AM CDT Influenza B, Negative Negative 10/03/2019 [facility] POCT 11:06 AM CDT Resp Syncytial Negative Negative 10/03/2019 [facility] Virus, POCT 11:06 AM CDT Specimen Anatomical Collection Method Collection Time Receive d Time (Source) Location / / Volume Laterality Varies 10/03/2019 11:06 10/03/2019 AM CDT 11:18 AM CDT Generic Rals LAB POCT ORDERABLES - DEVICE Performing Organization Address [facility] Phon e Number [phone] [place] [address] System in [address] Influenza A/B and RSV, PCR, Point of Care (10/03/2019 10:39 AM CDT) Analysis Performed At Patho logist Time Signature Influenza A, Collected DEFAULT 10/03/2019 [facility] B, RSV, PCR, 10:42 AM CDT POCT Specimen Anatomical Collection Method Collection Time Receive d Time (Source) Location / / Volume Laterality Varies 10/03/2019 10:39 10/03/2019 (Nasopharynx) AM CDT 10:42 AM CDT Precious Huggins P.A.-C. LAB POCT ORDERABLES - DEVICE Performing Organization Address [facility] Phon e Number [phone] [place] [address] System [address] SARS Coronavirus-2, PCR (10/03/2019 10:39 AM CDT) Component Value Ref Range Test Analysis Performed Pathologis t Method Time At Signature SARS Swab, Nasopharynx 10/04/2019 [facility] Coronavirus-2 11:54 AM Source CDT SARS Negative Negative 10/04/2019 [facility] Coronavirus-2, 11:54 AM PCR CDT SARS Coronavirus This test was developed and its performance characteristics determined by 10/04/2019 [facility] Interpretation [facility] in a manner cons istent with CLIA requirements. Independent review 11:54 AM by the U.S. Food and Drug Administration is pending. CDT Specimen Anatomical Collection Method Collection Time Receive d Time (Source) Location / / Volume Laterality Varies 10/03/2019 10:39 10/03/2019 (Nasopharynx) AM CDT 10:20 PM CDT Precious Huggins P.A.-C. LAB MICROBIOLOGY - GENERAL O RDERABLES Performing Organization Address City/State/ZIP Code Phon e Number [facility] [address] [place], [place] [phone] [place] [address] [facility] [address] [facility] documented in this encounter Visit Diagnoses Diagnosis Cough Unspecified Type - Primary Nicotine Dependence Cigarettes With With drawal Bronchitis documented in this encounter Care Teams Roller Leveler Relationship Specialty Start Date End Date Patricio Palmer M.D. PCP - General Family Medicine 12/18/[address] [place] [phone] documented as of this encounter
--- OUTSIDE RECORDS SUMMARY | 2022-02-22 12:33 | XMS_ITS | Encounter Summary ---
:1985 Author Organization [facility] Address [address] [place] [address] Care Team Providers Name Role Phone Patricio Palmer M.D. 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 PCP - General Family Medicine 12/18/[address] [place] [phone] documented as of this encounter
--- OUTSIDE RECORDS SUMMARY | 2022-02-22 12:33 | XMS_ITS | Encounter Summary ---
:1985 Author Organization [facility] Address [address] [place] [address] Care Team Providers Name Role Phone Patricio Palmer M.D. Primary Care Provider Reason for Visit Reason Comments Med Refill Encounter Details Date Type Department Care Team Description 02/04/2020 Refill Department of Neurology in Lina Pietro sheikh M.D. Med Refill [place], [place] [address] [facility] [address] [place] [address] [place] [address] [phone] Social History Tobacco Use Types Packs/Day Years [...] or relatives? How often do you attend voodoo or 1 to 4 times per year 05/18 lutheran services? 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 - 02/04/2020 3:07 PM CDT Sent portal message. documented in this encounter Plan of Treatment Not on filedocumented as of this encounter Visit Diagnoses Diagnosis Epilepsy Seizure Not Intractable Without Status Epilepticus (HCC) documented in this encounter Care Teams Cage/Vault Supervisor Relationship Specialty Start Date End Date Patricio Palmer M.D. PCP - General Family Medicine 12/18/[address] [place] [phone] documented as of this encounter
--- OUTSIDE RECORDS SUMMARY | 2022-02-22 12:33 | XMS_ITS | Encounter Summary ---
:1985 Author Organization [facility] Address [address] [place] [address] Care Team Providers Name Role Phone Patricio Palmer M.D. Primary Care Provider Encounter Details Date Type Department Care Team Description 04/22/2020 Orders Only [facility], [facility], in P.Elysia Euceda, M.S. [address] [place] [address] [place] [address] [phone] Social History Tobacco Use Types Packs/Day Years [...] or relatives? How often do you attend gnosticist or 1 to 4 times per year 05/18 zoroastrianism services? 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 PCP - General Family Medicine 12/18/[address] [place] [address] [place] Olguin [phone] documented as of this encounter
--- OUTSIDE RECORDS SUMMARY | 2022-02-22 12:33 | XMS_ITS | Encounter Summary ---
:1985 Author Organization [facility] Address [address] [place] [address] Care Team Providers Name Role Phone Patricio Palmer M.D. Primary Care Provider Encounter Details Date Type Department Care Team Description 08/09/2019 Hospital Encounter Department of Suad Avendano, Laboratory Medicine in Lucas DUEÑAS, M.S.[facility] [address] [place], [place] [phone] (Wo rk) Social History Tobacco Use Types [...] or relatives? How often do you attend buddhism or 1 to 4 times per year 05/18 jewish services? 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 Pt does not know do clitnon 0 THC component: mg CBD component: mg SUMAtriptan (IMITREX) 50 Take 1 tablet (50 mg 9 tablet 5 0 12/19/2018 mg tablet total) by mouth once as needed for migraine for up to 1 dose. May repeat one time after 2 hours if needed. lacosamide (VIMPAT) 100 Take 1 tablet (100 60 tablet 5 02/1508/28/2019 mg tabletIndications: mg total) by mouth 2 Epilepsy Seizure Not (two) times a day. Intractable Without Status Epilepticus (HCC) lamoTRIgine (LaMICtal) Take 200 mg by mouth 06/09/2021 100 mg tablet 2 (two) times a day. LORazepam (ATIVAN) 1 mg Take 1-2 tablets 2 tablet 0 201809/16/2019 tablet (1-2 mg total) by mouth See Admin Instructions. Take 30 minutes prior to procedure. documented as of this encounter Plan of Treatment Not on filedocumented as of this encounter Visit Diagnoses Not on filedocumented in this encounter Care Teams Tile Finisher Relationship Specialty Start Date End Date Patricio Palmer M.D. PCP - General Family Medicine 12/18/[address] [place] [phone] documented as of this encounter
--- OUTSIDE RECORDS SUMMARY | 2022-02-22 12:33 | XMS_ITS | Encounter Summary ---
:1985 Author Organization [facility] Address [address] [place] [address] Care Team Providers Name Role Phone Patricio Palmer M.D. Primary Care Provider Encounter Details Date Type Department Care Team Description 03/27/2019 Hospital Encounter Department of Pietro Pickett epsmaru Seizure Not Laboratory Medicine Pippa Zuluaga Intractable Without in [place], [address] [facility] Status Epilepticus [place], [place] ([facility]) [address] [facility] [address] [place], [place] [phone] [phone] (Work) [phone] Social History Tobacco Use Types Packs/Day Years [...] 1 to 4 times per year 05/18 tenriism services? 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 LAMOTRIGINE LEVEL, S Routine 03/27/2019 9:46 Epilepsy Seizure Results for this AM CDT Not Intractable procedure ar e in Without Status the results Epilepticus (HCC) section. CBC WITH DIFFERENTIAL, B Routine 03/27/2019 9:46 Epilepsy Seiz ure Results for this AM CDT Not Intractable procedure ar e in Without Status the results Epilepticus (HCC) section. ASPARTATE Routine 03/27/2019 9:46 Epilepsy Seizure Results for this AMINOTRANSFERASE (AST), AM CDT Not Intractable p rocedure are in S/P Without Status the results Epilepticus (HCC) section. CREATININE WITH EGFR, Routine 03/27/2019 9:46 Epilepsy Seizure Results for this S/P AM CDT Not Intractable procedure ar e in Without Status the results Epilepticus (HCC) section. documented in this encounter Results (ABNORMAL) CBC with Differential, Blood (03/27/2019 9:46 AM CDT) [facility] Method Time Signature Hemoglobin 14.7 11.6 - 03/27/2019 15.0 g/dL 10:13 AM CDT Hematocrit 44.5 35.5 - 03/27/2019 44.9 % 10:13 AM CDT Erythrocytes 5.08 3.92 - 03/27/2019 5.13 10:13 AM CDT x10(12)/L MCV 87.6 78.2 - 03/27/2019 97.9 fL 10:13 AM CDT RBC Distrib Width 13.6 12.2 - 03/27/2019 16.1 % 10:13 AM CDT Platelet Count 290 157 - 371 03/27/2019 x10(9)/L 10:13 AM CDT Leukocytes 7.2 3.4 - 9.6 03/27/2019 x10(9)/L 10:13 AM CDT Neutrophils 3.39 1.56 - 03/27/2019 6.45 10:13 AM CDT x10(9)/L Lymphocytes 2.89 0.95 - 03/27/2019 3.07 10:13 AM CDT x10(9)/L Monocytes 0.82 (H) 0.26 - 03/27/2019 0.81 10:13 AM CDT x10(9)/L Eosinophils 0.09 0.03 - 03/27/2019 0.48 10:13 AM CDT x10(9)/L Basophils 0.05 0.01 - 03/27/2019 0.08 10:13 AM CDT x10(9)/L Specimen Anatomical Collection Method Collection Time Receive d Time (Source) Location / / Volume Laterality Blood (Blood, 03/27/2019 9:46 AM 03/27/20 19 9:46 Venous) CDT AM CDT Pietro Pickett M.D. LAB BLOOD ADD-ON Performing Organization Address City/State/ZIP Code Phon e Number [facility] [address] [place] [phone] [facility] Lamotrigine Level (03/27/2019 9:46 AM CDT) athologist Signature Lamotrigine, S 7.4 2.5 - 15.0 03/28/2019 mcg/mL 11:40 AM CDT Comment: ----ADDITIONAL INFORMATION---- This test was developed and its performa nce characteristics determined by [facility] in a manner consistent with CLIA requirements. This test has not been cleared or approved by the [place]anch[place] and Drug Administration. Specimen Anatomical Collection Method Collection Time Receive d Time (Source) Location / / Volume Laterality Blood (Blood, 03/27/2019 9:46 AM 03/28/20 19 7:51 Venous) CDT AM CDT Pietro Pickett M.D. LAB BLOOD NON ADD-ON Performing Organization Address City/State/ZIP Code Phon e Number [facility] [address] [place], [place] [phone] [facility] Lacosamide (Vimpat), Level (03/27/2019 9:46 AM CDT) P athologist Signature Lacosamide, S 5.3 1.0 - 10.0 03/28/2019 mcg/mL 9:49 AM CDT Comment: ----ADDITIONAL INFORMATION---- This test was developed and its performa nce characteristics determined by [facility] in a manner consistent with CLIA requirements. This test has not been cleared or approved by the [place] P[place] d and Drug Administration. Specimen Anatomical Collection Method Collection Time Receive d Time (Source) Location / / Volume Laterality Blood (Blood, 03/27/2019 9:46 AM 03/28/20 19 7:52 Venous) CDT AM CDT Pietro Pickett M.D. LAB BLOOD NON ADD-ON Performing Organization Address City/State/ZIP Code Phon e Number [facility] [address] [place], [place] [phone] [facility] Creatinine with Estimated GFR (03/27/2019 9:46 AM CDT) P athologist Signature Creatinine, S 0.69 0.59 - 1.04 03/27/2019 mg/dL 11:02 AM CDT eGFR-Non >90 >=60 03/27/2019 Black/ mL/min/BSA 11:02 AM CDT Ukrainian Comment: ----ADDITIONAL INFORMATION---- Estimated GFR calculated using the 2009 CKD_EPI creatinine equation. eGFR-Black/ >90 >=60 mL/min/BSA 2018 11:02 AM CDT Comment: ----ADDITIONAL INFORMATION---- Estimated GFR calculated using the 2009 CKD_EPI creatinine equation. Specimen Anatomical Collection Method Collection Time Receive d Time (Source) Location / / Volume Laterality Blood (Blood, 03/27/2019 9:46 AM 03/27/20 19 9:46 Venous) CDT AM CDT Pietro Pickett M.D. LAB BLOOD ADD-ON Performing Organization Address City/[facility] Code Phon e Number [address] [phone] [facility] AST (Aspartate Aminotransferase) (03/27/2019 9:46 AM CDT) Patholo gist Method Time Signature Aspartate 18 8 - 43 03/27/2019 Aminotransferase U/L 11:02 AM CDT (AST), S Specimen Anatomical Collection Method Collection Time Receive d Time (Source) Location / / Volume Laterality Blood (Blood, 03/27/2019 9:46 AM 03/27/20 19 9:46 Venous) CDT AM CDT Pietro Pickett M.D. LAB BLOOD ADD-ON Performing Organization Address City/[facility] Phon e Number [address] [place] [phone] [facility] documented in this encounter Visit Diagnoses Diagnosis Epilepsy Seizure Not Intractable Without Status Epilepticus (HCC) documented in this encounter Care Teams Senior Sas Programmer Relationship Specialty Start Date End Date Patricio Palmer M.D. PCP - General Family Medicine 12/18/[address] [place] [address] [place] [phone] documented as of this encounter
--- OUTSIDE RECORDS SUMMARY | 2022-02-22 12:33 | XMS_ITS | Encounter Summary ---
:1985 Author Organization [facility] Address [address] [place] [address] Care Team Providers Name Role Phone Patricio Palmer M.D. Primary Care Provider Encounter Details Date Type Department Care Team Description 03/04/2019 Hospital Encounter Department of Pietro Pickett epsmaru Seizure Not Laboratory Medicine Pippa Zuluaga Intractable Without in [place], [address] [facility] Status Epilepticus [place], [place] ([facility]) [address] [facility] [address] [place], [place] [phone] (Work) [phone] Social History Tobacco Use Types Packs/Day Years [...] or relatives? How often do you attend druze or 1 to 4 times per year 05/18 advent services? 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 documented in this encounter Results Lacosamide (Vimpat), Level (03/04/2019 9:30 AM CDT) P athologist Signature Lacosamide, S 8.8 1.0 - 10.0 03/05/2019 mcg/mL 9:40 AM CDT Comment: ----ADDITIONAL INFORMATION---- This test was developed and its performa nce characteristics determined by [facility] in a manner consistent with CLIA requirements. This test has not been cleared or approved by the [place]. [place] d and Drug Administration. Specimen Anatomical Collection Method Collection Time Receive d Time (Source) Location / / Volume Laterality Blood 03/04/2019 9:30 AM 9 7:33 CDT AM CDT Pietro Pickett M.D. LAB BLOOD NON ADD-ON Performing Organization Address City/State/ZIP Code Phon e Number [facility] [address] [place] [phone] [facility] documented in this encounter Visit Diagnoses Diagnosis Epilepsy Seizure Not Intractable Without Status Epilepticus (HCC) documented in this encounter Care Teams Metal Die Finisher Relationship Specialty Start Date End Date Patricio Palmer M.D. PCP - General Family Medicine 12/18/[address] [place] [address] [place] [phone] documented as of this encounter
--- OUTSIDE RECORDS SUMMARY | 2022-02-22 12:33 | XMS_ITS | Encounter Summary ---
:1985 Author Organization [facility] Address [address] [place] [address] Care Team Providers Name Role Phone Patricio Palmer M.D. Primary Care Provider Encounter Details Date Type Department Care Team Description 11/05/2019 Orders Only Department of Family Suad Avendano AP RN, Medicine, [facility], in C.N[facility] P., M.S.N. 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 PCP - General Family Medicine 12/18/[address] [place] [phone] documented as of this encounter
--- OUTSIDE RECORDS SUMMARY | 2022-02-22 12:33 | XMS_ITS | Encounter Summary ---
:1985 Author Organization [facility] Address [address] [place] [address] Care Team Providers Name Role Phone Patricio Palmer M.D. Primary Care Provider Reason for Visit Reason Comments Finger Laceration had stiches place on 01/15 and now is painful and swollen Encounter Details Date Type Department Care Team Description 01/21/2020 Emergency [place] [facility] Maria L Jeffries, Cellulit is Finger Left Department P.A.-C. 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 Cellulitis Adult ([place])documented in this encounter Medications at Time of [...] for wheezing or shortness of breath. ibuprofen (ADVIL,MOTRIN) Take 1 tablet (800 90 [...] one time after 2 hours if needed. cefadroxil (DURICEF) 500 Take 1 capsule (500 20 capsule 0 01/31/2020 mg capsule mg total) by mouth 2 (two) times a day for 10 days. lamoTRIgine (LaMICtal) Take 200 mg by mouth 11 06/09/2021 100 mg tablet 2 (two) times a day. lamoTRIgine (LaMICtal) TAKE 2 TABLETS (200 360 tablet 3 08/1708/14/2020 100 mg tablet MG TOTAL) BY MOUTH 2 (TWO) TIMES A DAY. naproxen (NAPROSYN) 500 Take 1 tablet (500 20 tablet 0 0 01/202006/04/2021 mg tablet mg total) by mouth 2 (two) times a day with meals for 10 days. Vimpat 100 mg TAKE 1 TABLET (100 60 tablet 5 08/28/2019 tabletIndications: MG TOTAL) BY MOUTH 2 Epilepsy Seizure Not (TWO) TIMES A DAY. Intractable Without Status Epilepticus (HCC) documented as of this encounter ED Notes Maria L Jeffries - 01/21/2020 6:19 PM CDT Images from the original note were not included. SUBJECTIVE: CHIEF COMPLAINT/REASON FOR VISIT: Finger Laceration (had stiches place on 01/15 and now is painful and swollen ) HISTORY OF PRESENT ILLNESS: Patient is a 35-year-old female who presents to the emergency department concerns of left index finger infection. Patient had delayed suture repair of a laceration of the left index finger on 01/16/2020. There were 4 nylon stitches placed. The laceration was sustained on 01/15/20 while washing dishes and handling a new knife, patient attempted to super glue the wound but it reopened and she sought carethe following day. Patient reports erythema and swelling beginning 3 days ago, no drainage from wound. She denies fevers or chills. Has been taking tylenol for pain control REVIEW OF SYSTEMS: Constitutional: Negative for chills and fever. Musculoskeletal: Positive for extremity pain. Skin: Positive for wound. Allergic/Immunologic: Negative for immunocompromised state. ALLERGIES/MEDICATIONS: Reviewed in medical record PAST MEDICAL/FAMILY/SOCIAL HISTORY: Medical History: Past Medical History: Diagnosis Date ??? Conversion [...] Weeks Gestation With Delivery By Planned Section ([facility]) 11/21/2014 ??? Stone Kidney Patient Active Problem List Diagnosis Date Noted ??? Migraine Headache Chronic 12/19/2018 ??? Nicotine Dependence Cigarettes With Withdrawal 09/25/2018 ??? 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 Nicotine Dependence Cigarettes 01/06/2012 ??? 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 Other Psychoactive Substance Mild Use Disorder (Abuse) In Remission ([facility]) 02/19/2007 Surgical History: Past Surgical History: Procedure Laterality Date ??? [...] ROMB OR ??? TONSILLECTOMY 2004 estimated year OBJECTIVE: INITIAL VITAL SIGNS: Initial Vitals Temperature Pulse Rate Heart Rate Resp Blood Pressure SpO2 01/21/20 1815 01/21/20 1815 -- -- 01/21/20 1815 01/21/20 1815 37.3 ??C 82 124/89 99 % Pain Score 01/21/201855 8 PHYSICAL EXAMINATION: Constitutional: Nursing note and vitals reviewed. No distress. Musculoskeletal: Normal range of motion. Tenderness present. Hands: Neurological: She is alert. Skin: Skin is warm and dry. ED COURSE: Final Diagnoses: as of Jan 20 2002 Cellulitis Finger Left INTERVENTIONS: Medications bacitracin zinc 500 unit/gram ointment packet 1 packet (1 packet topical Given 01/21/201855) cefadroxil capsule 500 mg (DURICEF) (500 mg oral Given 01/21/201855) HYDROcodone-acetaminophen 5-325 mg per tablet 1 tablet (NORCO) (1 tablet oral Given 01/21/201855) Td: tetanus and diphtheria (PF) vaccine 0.5 mL (0.5 mL intramuscular Given 01/21/201853) LABS: Labs Reviewed - No data to display ECG: RADIOLOGY: No orders to display ASSESSMENT AND PLAN: Impression and Plan 35 year old female presenting with concerns for possible infection of finger laceration. She had delayed closure. Her sutures were removed, wound soaked and tetanus updated. Mild erythema of wound, no drainage. No signs of abscess. First dose of cefadroxil given in ED. Discussed wound care and pain management DIAGNOSIS: Final diagnoses: [L03.012] Cellulitis Finger Left ED DISCHARGE MEDS: ED Prescriptions Medication Sig Dispense Start Date End Date Auth. Provider cefadroxil (DURICEF) 500 mg capsule Take 1 capsule (500 mg total) by mouth 2 (two) times a day for 10 days. 20 capsule 01/21/2020 01/31/2020 Maria L Jeffries naproxen (NAPROSYN) 500 mg tablet Take 1 tablet (500 mg total) by mouth 2 (two) times a day with meals for 10 days. 20 tablet 01/21/2020 01/31/2020 Maria L Jeffries DISPOSITION: Home or Self Detention or Self Care FOLLOW UP: Maria L Jeffries PA-C Emergency Medicine Maria L Jeffries 01/21/202001 documented in this encounter Plan of Treatment Not on filedocumented as of this encounter Visit Diagnoses Diagnosis Cellulitis Finger Left - Primary documented in this encounter Administered Medications Inactive Administered Medications - up to 3 most recent administrations Medication Order MAR Action Action Date Dose Rate Site bacitracin zinc 500 unit/gram Given 01/21/2020 6:56 PM CDT 1 pac ket ointment packet 1 packet 1 packet, topical, Once, On Mon01/21/20 at 1837, For 1 dose cefadroxil capsule 500 mg (DURICEF) Given 01/21/2020 6:56 PM CDT 500 mg 500 mg, oral, Once, On Mon01/21/20 at 1839, For 1 dose, Indications: Skin and soft tissue infection HYDROcodone-acetaminophen 5-325 mg per Given 01/21/2020 6:56 PM CDT 1 tablet tablet 1 tablet (NORCO) 1 tablet, oral, Once, On Mon01/21/20 at 1848, For 1 dose documented in this encounter Active and Recently Administered Medications Times are shown in CDT. Scheduled Medication Order 01/19/2020 01/20/2020 01/21/2020 bacitracin zinc 500 unit/gram ointment packet 1 packet (COMPLETE D) 1855 (Given - Provider: Fortunato Le R.N.) 1 packet, topical, Once, Mon01/21/20 at 1837, For 1 dose cefadroxil capsule 500 mg (DURICEF) (COMPLETED) 1855 (Given - Provider: Fortunato Le R.N.) 500 mg, oral, Once, Mon01/21/20 at 1839, For 1 dose, Indications: Skin and soft tissue infection HYDROcodone-acetaminophen 5-325 mg per tablet 1 tablet (NORCO) ( COMPLETED) 185 (Given - Provider: Fortunato Le R.N.) 1 tablet, oral, Once, Mon01/21/20 at 1848, For 1 dose documented in this encounter Care Teams Spinning Bath Person Relationship Specialty Start Date End Date Patricio Palmer M.D. PCP - General Family Medicine 12/18/[address] [place] [phone] documented as of this encounter
--- OUTSIDE RECORDS SUMMARY | 2022-02-22 12:33 | XMS_ITS | Encounter Summary ---
:1985 Author Organization [facility] Address [address] [place] [address] Care Team Providers Name Role Phone Patricio Palmer M.D. Primary Care Provider Reason for Visit Reason Comments Med Refill Encounter Details Date Type Department Care Team Description 03/11/2019 Refill Department of Neurology in [place] Pietro sheikh M.D. 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 PCP - General Family Medicine 12/18/[address] [place] [address] [phone] documented as of this encounter
--- OUTSIDE RECORDS SUMMARY | 2022-02-22 12:33 | XMS_ITS | Encounter Summary ---
:1985 Author Organization [facility] Address [address] [place] [address] Care Team Providers Name Role Phone Patricio Palmer M.D. 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 PCP - General Family Medicine 12/18/[address] [place] [phone] documented as of this encounter
--- OUTSIDE RECORDS SUMMARY | 2022-02-22 12:33 | XMS_ITS | Encounter Summary ---
:1985 Author Organization [facility] Address [address] [place] [address] Care Team Providers Name Role Phone Patricio Palmer M.D. Primary Care Provider Reason for Visit Reason Comments Finger Laceration patient presents with lacera tion to the base of left index finger. cut it on a infection control manager knife la st night around 2200 Encounter Details Date Type Department Care Team Description 01/16/2020 Emergency [place] [facility] [place], Chidi, Laceration Hand Without Department P.A.-C. 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 - 01/16/2020 3:25 PM CDT Suture removal in 10 days. AttachmentsThe following attachments cannot be sent through Care Everywhere. Sutures [place] or Adhesive Wound Closure [id number] (Kenyan)documented in this encounter Medications at Time of [...] Epilepticus (HCC) documented as of this encounter Procedure Notes Chidi Caro P.A.-C. - 01/16/2020 4:01 PM CDTAssociated Order(s): Laceration Repair Procedure Laceration Repair Date/Time: 01/16/2020 6:05 PM Performed by: Chidi Caro P.A.-C. Authorized by: Chidi Caro P.A.-C. PROCEDURE DETAILS Repair type: Simple Limited defect created (wound extended): yes Contaminated: no Wound exploration: wound explored through full range of motion and entire depth of wound probed and visualized Repair method: Sutures Suture size: 4-0 Suture material: Nylon Suture technique: Simple interrupted Number of sutures: 4 Approximation: Close CONSENT Consent obtained: verbal Consent given by: patient UNIVERSAL PROTOCOL All relevant documentation and testing were reviewed and available. All required blood products, implants, devices and or special equipment were made available as applicable. Pre-procedure verificationwas conducted and the correct site was marked if required. A fire risk assessment was done as applicable. The procedural time-out was conducted prior to performing the procedure and confirmed in a procedural pause. SEDATION / ANESTHESIA Anesthesia method: local infiltration Local infiltrate type: lidocaine PRE PROCEDURE DETAILS Indication: laceration Location: Hand Hand location: Left palmar surface Length (cm): 2 Depth (mm): 2 Circulation distal to injury: capillary refill < 2 sec, warm and pink Movement distal to injury: normal Sensation distal to injury: normal Area cleansed with: Chlorhexidine Amount of cleaning: Standard Irrigation solution: Sterile water and sterile saline Irrigation volume (mL): 50 Foreign body imaging: None POST PROCEDURE DETAILS Procedure completed successfully: yes Tetanus status up to date: Up to date Dressing Applied: yes Dressing applied: Pressure/compression dressing Wrapped with: Coban Circulation distal to injury: capillary refill < 2 sec, warm and pink Movement distal to injury: normal Sensation distal to injury: normal Complications: no immediate complications Chidi Caro P.A.-C. 01/16/20 1806 documented in this encounter ED Notes Chidi Caro P.A.-C. - 01/16/2020 2:42 PM CDT Images from the original note were not included. SUBJECTIVE CHIEF COMPLAINT/REASON FOR VISIT Finger Laceration (patient presents with laceration to the base of left index finger. cut it on a infection control manager knife last night around 2200) HISTORY OF PRESENT ILLNESS Patient presents emergency department chief complaint knife induced laceration to left hand. Patientstates while washing dishes she was handling a new her butter knife and came in contact with Sharp age the blade causing incision type laceration that starts at the proximal flexure of the 2nd digit palmar surface left hand and extends to base of 3rd digit. Patient states she attempted to seal the wound with super glue during the night and every time she extensor finger the area popped open. She has been able to control the bleeding there is no sign redness or swelling in the area she has full rangeof motion to the digit. Medial 1/2 of incision is very shallow and is already sealed. History provided by: Patient parts interpreter needed/used: no Laceration Location: Hand Hand laceration location: L hand and L palm Depth: Cutaneous Quality: straight Bleeding: controlled Time since incident: 8 hours Laceration mechanism: Knife Pain details: Quality: Hot and sharp Severity: Mild Foreign body present: No foreign bodies Relieved by: Nothing Worsened by: Movement Ineffective treatments: None tried Tetanus status: Up to date Associated symptoms: no fever, no numbness, no rash and no redness REVIEW OF SYSTEMS Constitutional: Negative for fever. Respiratory: Negative for chest tightness and shortness of breath. Cardiovascular: Negative for chest pain. Musculoskeletal: Positive for extremity pain. Skin: Negative for rash. ALLERGIES/CONTRAINDICATIONS Reviewed in medical record. CURRENT MEDICATIONS Reviewed in medical record. MEDICAL HISTORY Past Medical History: Diagnosis Date ??? Conversion Disorder With Seizures Or Convulsions ??? 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 Leak Amniotic Fluid ??? 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 Seizure ([facility]) ??? Spontaneous Onset Of Labor After 37 Completed Weeks Of Gestation But Before 39 Completed Weeks Gestation With Delivery By Planned Section ([facility]) 11/21/2014 ??? Stone Kidney Patient Active Problem List Diagnosis Date Noted ??? Migraine Headache Chronic 12/19/2018 ??? Nicotine Dependence Cigarettes With Withdrawal 09/25/2018 ??? 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 Nicotine Dependence Cigarettes 01/06/2012 ??? 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 Other Psychoactive Substance Mild Use Disorder (Abuse) In Remission ([facility]) 02/19/2007 SURGICAL HISTORY Past Surgical History: Procedure Laterality Date ??? [...] M.D.; Location: [facility] OR ??? TONSILLECTOMY 2005 estimated year FAMILY HISTORY Reviewed in chart. SOCIAL HISTORY Social History Socioeconomic History ??? Marital status: [...] More than three times a week Attends taoism service: Never Active member of club or organization: No Attends meetings of clubs or organizations: None Relationship status: Never ??? Intimate partner violence Fear of current or ex partner: None Emotionally abused: None Physically abused: None Forced sexual activity: None Other Topics Concern ??? None Social History Narrative ??? None Social History Substance and Sexual Activity Alcohol Use No ??? Frequency: Never ??? Binge frequency: Never Social History Substance and Sexual Activity Drug Use No OBJECTIVE INITIAL VITAL SIGNS: Initial Vitals [01/16/20 1357] Temperature Pulse Rate Heart Rate Resp Rate Blood Pressure SpO2 37 ??C 85 -- 18 124/88 97 % Pain Score 6 PHYSICAL EXAMINATION Constitutional: Nursing note and vitals reviewed. No distress. Cardiovascular: Normal rate and regular rhythm. Pulses are strong and palpable. Capillary refill: takes less than 3 seconds, Pulmonary/Chest: Effort normal and breath sounds normal. There is normal air entry. Neurological: She is alert and oriented to person, place, and time. Skin: Skin is warm and dry. Laceration noted. She is not diaphoretic. Patient's laceration to proximal flexure 2nd digit left hand that extends medially to below proximalflexor 3rd digit. Laceration does not extend in to compartment. @[employer]@ ED COURSE: ED Course as of Jan 16 1804 Glory Jan 16, 2020 1400 Laceration base of 2nd digit will continue to reopen every time patient extend her finger. I counseled patient on the pros and cons of delayed closure and she agrees to suture repair to the lateral aspect laceration. The medial aspect laceration shallow is already sealed. Final Diagnoses: as of Jan 16 1804 Laceration Hand Without Foreign Body Initial Left INTERVENTIONS: Medications - No data to display DIAGNOSTICS LABS: Labs Reviewed - No data to display ECG: RADIOLOGY: No orders to display PROCEDURES: Laceration repair See separate procedure note. ASSESSMENT / PLAN Impression and Plan Laceration left hand without foreign bodies Differential Diagnoses Conditions considered: Laceration left hand without foreign bodies, laceration left hand with tendoninvolvement DIAGNOSIS: Final diagnoses: [S61.412A] Laceration Hand Without Foreign Body Initial Left ED DISCHARGE MEDICATIONS: ED Prescriptions None DISPOSITION: Home or Self Snf or Self Care FOLLOW UP: Chidi Caro P.A.-C. Emergency Medicine Chidi Caro P.A.-C. 01/16/20 180 Chidi Caro P.A.-C. 01/16/20 1820 documented in this encounter Plan of Treatment Not on filedocumented as of this encounter Procedures Procedure Name Priority Date/Time Associated Diagnosis Comme nts LACERATION REPAIR Routine 01/16/2020 4:01 PM Resu lts for this CDT procedure are i n the results section. documented in this encounter Results Laceration Repair (01/16/2020 4:01 PM CDT) Narrative Chdii Caro P.A.-C. - 01/16/2020 4:01 PM CDT Chidi Caro P.A.-C. ? 01/16/2020 ??6:06 PM Laceration Repair Date/Time: 01/16/2020 6:05 PM Performed by: Chidi Caro P.A.-C. Authorized by: Chidi Caro P.A.-C. PROCEDURE DETAILS Repair type: ??Simple Limited defect created (wound extended): yes ?? Contaminated: no ?? Wound exploration: wound explored throug h full range of motion and entire depth of wound probed and visualized ?? Repair method: ??Sutures Suture size: ??4-0 Suture material: ??Nylon Suture technique: ??Simple interrupted Number of sutures: ??4 Approximation: ??Close CONSENT Consent obtained: verbal Consent given by: patient UNIVERSAL PROTOCOL All relevant documentation and testing [...] and confirmed in a procedu ral pause. SEDATION / ANESTHESIA Anesthesia method: local infiltration Local infiltrate type: lidocaine PRE PROCEDURE DETAILS Indication: laceration ?? Location: ??Hand Hand location: ??Left palmar surface Length (cm): ??2 Depth (mm): ??2 Circulation distal to injury: capillary refill < 2 sec, warm and pink ?? Movement distal to injury: normal ?? Sensation distal to injury: normal ?? Area cleansed with: ??Chlorhexidine Amount of cleaning: ??Standard Irrigation solution: ??Sterile water and sterile saline Irrigation volume (mL): ??50 Foreign body imaging: ??None POST PROCEDURE DETAILS Procedure completed successfully: yes ?? Tetanus status up to date: ??Up to date Dressing Applied: yes ?? Dressing applied: ??Pressure/compression dressing Wrapped with: ??Coban Circulation distal to injury: capillary refill < 2 sec, warm and pink ?? Movement distal to injury: normal ?? Sensation distal to injury: normal ?? Complications: no immediate complication s ?? Chidi Caro P.A.-C. PROCEDURE/MINOR SURGICAL ORD ERABLES documented in this encounter Visit Diagnoses Diagnosis Laceration Hand Without Foreign Body Ini tial Left - Primary documented in this encounter Active and Recently Administered Medications Times are shown in CDT. Scheduled Medication Order 01/14/2020 2020 01/16/2020 lidocaine 10 mg/mL (1 %) injection 5 mL (XYLOCAINE) 1443 (Due) 5 mL, injection, Once, [facility] 01/16/20 at 1443, For 1 dose documented in this encounter Care Teams Vegetable Preparer Relationship Specialty Start Date End Date Patricio Palmer M.D. PCP - General Family Medicine 12/18/[address] [place] [phone] documented as of this encounter
--- OUTSIDE RECORDS SUMMARY | 2022-02-22 12:33 | XMS_ITS | Encounter Summary ---
:1985 Author Organization [facility] Address [address] [place] [address] Care Team Providers Name Role Phone Patricio Palmer M.D. Primary Care Provider Reason for Visit Reason Comments Cough ylw phlegm, worse at night a nd hard to breath Wheezing Encounter Details Date Type Department Care Team Description 09/16/2019 Office Visit Department of Family Ese Adler Bron chitis Acute (Primary Dx); Medicine, Eduarda DUEÑAS C.N.PFlex, Nicotine D ependence Cigarettes Clinic, in Eduarda M.S.N. [address] [place] [phone] Social History Tobacco Use Types Packs/Day Years [...] 1 to 4 times per year 05/18 scientology services? 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 documented as of this encounter Last Filed Vital Signs Vital Sign Reading Time Taken Comments Blood Pressure 102/76 09/16/2019 8:16 AM PHOTOGRAPHER SCIENTIFIC Pulse 92 09/16/2019 8:16 AM PHOTOGRAPHER SCIENTIFIC Temperature 36.4 ??C (97.5 ??F) 09/16/2019 8:16 AM PHOTOGRAPHER SCIENTIFIC Respiratory Rate 18 09/16/2019 8:16 AM PHOTOGRAPHER SCIENTIFIC Oxygen Saturation 98% 09/16/2019 8:16 AM PHOTOGRAPHER SCIENTIFIC Inhaled Oxygen Concentration - - Weight 61.1 kg (134 lb 11.2 oz) 09/16/2019 8:16 AM PHOTOGRAPHER SCIENTIFIC Height - - Body Mass Index 24.63 10/04/2018 9:48 AM CDT documented in this encounter Progress Notes Ese Adler, SPENSER, C.N.P., M.S.N. - 09/16/2019 8:30 AM CST SUBJECTIVE CHIEF COMPLAINT / REASON FOR VISIT Cough (ylw phlegm, worse at night and hard to breath) and Wheezing HISTORY OF PRESENT ILLNESS Luisa Coulter is a 34 y.o. female who presents for evaluation of a cough which has been going on for the last week. She states she has been wheezing which has been worse at night, last night she used her boyfriend's albuterol which did help some. She herself does not have an albuterol inhaler and has never used albuterol previously. She is a current smoker. She has no other history of lung problems. She states her throat is not hurting and she is denying nasal congestion. She states she has not had a fever with this. She is coughing more so at night. She states the cough is productive. She has a past medical history of epilepsy and chronic migraine headaches. The patient's allergies, medications and medical history were reviewed in the electronic medical record. REVIEW OF SYSTEMS A brief review of systems was negative except for that mentioned in the history of present of illness. OBJECTIVE VITAL SIGNS BP 102/76 (BP Location: Right arm, Patient Position: Sitting, Cuff Size: Regular) Pulse 92 Temp 36.4 ??C (Temporal) Resp 18 Wt 61.1 kg LMP 09/06/2019 SpO2 98% No BMI 24.63kg/m?? PHYSICAL EXAMINATION General: Patient is alert and in no acute distress. HEENT: Eyes equal, round, reactive to light and accommodation. Conjunctivae clear. Ear canals normalbilaterally without erythema or edema. TMs pearly marie and intact without erythema. Posterior oropharynx nonerythematous with no inflammation or exudate. Neck: Supple. No lymphadenopathy. Respiratory: Wheezing on expiration throughout all lung block. No increased work of breathing or use of accessory muscles. Cardiovascular: S1, S2 present. Normal rate and rhythm. Skin: No rashes or lesions are present. ASSESSMENT / PLAN 1. Bronchitis Acute 2. Nicotine Dependence Cigarettes The patient will [...] know if she is not getting better. New Medications Ordered This Visit Medications ??? codeine-guaiFENesin (ROBITUSSIN-AC) 10-100 mg/5 mL liquid Sig: Take 5 mL by mouth every 4 (four) hours as needed for cough or congestion. Dispense: 120 mL Refill: 0 ??? azithromycin (ZITHROMAX) 250 mg tablet Sig: Take 500 mg (2 tablets) by mouth the first day then 250 mg (1 tablet) by mouth for 4 more days. Dispense: 6 tablet Refill: 0 ??? albuterol (ProAir HFA) 90 mcg/actuation inhaler Sig: Inhale 2 puffs every 4 (four) hours as needed for wheezing or shortness of breath. Dispense: 25.5 g Refill: 3 OTC symptomatic treatments discussed. Drink plenty of fluids. Get plenty of rest. Humidifier or vaporizer in home. If new or concerning symptoms develop, seek medical attention. Patient verbalized understanding and acceptance of this plan of care, and denies any further needs at this time. OGRAPHER SCIENTIFIC documented in this encounter Plan of Treatment Not on filedocumented as of this encounter Visit Diagnoses Diagnosis Bronchitis Acute - Primary Nicotine Dependence Cigarettes documented in this encounter Care Teams Sorting Machine Attendant Relationship Specialty Start Date End Date Patricio Palmer M.D. PCP - General Family Medicine 12/18/[address] [place] [phone] documented as of this encounter
--- OUTSIDE RECORDS SUMMARY | 2022-02-22 12:33 | XMS_ITS | Encounter Summary ---
:1985 Author Organization [facility] Address [address] [place] [address] Care Team Providers Name Role Phone Patricio Palmer M.D. Primary Care Provider Reason for Visit Reason Comments Med Refill Encounter Details Date Type Department Care Team Description 08/28/2019 Refill Department of Neurology in Lina Pietro sheikh M.D. 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 PCP - General Family Medicine 12/18/[address] [place] [phone] documented as of this encounter
--- OUTSIDE RECORDS SUMMARY | 2022-02-22 12:33 | XMS_ITS | Encounter Summary ---
:1985 Author Organization [facility] Address [address] [place] [id number] Care Team Providers Name Role Phone Patricio Palmer M.D. Primary Care Provider Reason for Visit Reason Comments COVID Nurse Line Encounter Details Date Type Department Care Team Description 10/03/2019 Clinical Communication Division of Chelle Ayala Nurse Line [facility] Internal C, SPENSER C.N.PFlex, Medicine, [facility], in [address] [place] [phone] [place] [address] [place], [place] (Work) [phone] Social History Tobacco Use Types Packs/Day Years [...] or relatives? How often do you attend adventist or 1 to 4 times per year 05/18 cheondoism services? 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 - 10/03/2019 9:48 AM CDT Nurse Phone Triage Assessment CHIEF COMPLAINT / REASON FOR CALL Questions regarding novel coronavirus (COVID-19) HISTORY OF PRESENT ILLNESS Luisa Nuñezwestonmanjit calls to inquire about COVID-19 testing. She was treated for acute bronchitis on 09/16/19. Symptoms improved, but did not resolve - now new subjective fever and worsening cough. 1. Does patient have fever OR new respiratory symptoms? Yes If no to #1, consider alternative diagnosis. We are not currently testing asymptomatic patients. If yes to #1 then proceed to #2. 2. Has the patient had close contact with a person with a LABORATORY CONFIRMED case of COVID-19? No If no to Lab Confirmed case contact then proceed to question #3. If yes to Lab Confirmed case then proceed to emergency symptoms assessment and positive screen workflow for patient's region. 3. Does patient have both fever AND new respiratory symptoms? Yes If no to #3, consider alternative diagnosis. We are not currently testing patients that do not haveboth a fever AND respiratory symptoms. If yes to #3 then proceed to #4. 4. Has the patient had air travel/cruise or domestic travel to major metropolitan areas in the last 14 days? No Does patient fall into any of the high risk categories as identified by [facility] Infectious Disease? Uncertain - takes anti-seizure medications that may impair immune function. If yes to travel requirements OR high risk categories then proceed to emergency symptoms assessmentand positive screen workflow for patient's region. SYMPTOM ASSESSMENT Do you have lightheadedness? No Do you feel like you may collapse when you sit or stand up? No Respiratory effort/distress: SOB at rest Date of onset of SOB: couple of weeks - improved after treatment for bronchitis, but now returned. Feels like chest is tight. Able to ambulate with ease. (*Note to nurse: If patient has SOB at rest, lightheadedness or feels as if they will collapse everytime they sit or stand or up, the patient should present to the ED.) Cough: Non-productive and productive Date of onset of cough: 2 days ago it worsened - has been coughing for past several weeks. Fever: Yes, describe: sweats and chills Date of onset of fever: Couple days ago Exposure to influenza (if high risk illness/disease consider Influenza Treatment Nurse Protocol): No or (up to 2 weeks): No Other symptoms: PLAN Endpoint recommendation: Spoke with COVID19 ID provider emergency services professional regarding seizure medications, previous treatment for bronchitis, and current symptoms. Provider recommended swabbing for COVID19 and forevaluation in the ED for shortness of breath at rest so patient could be examined. Patient agreeable to go to ED. Advised patient to put on mask when arriving (no mask at home). Advised calling 911 if patient has difficulty with ambulation due to SOB before arriving to ED. Caller agreeable to plan of care: Yes The following references were used: [facility] novel coronavirus (COVID- 19) resources, Nursingjudgement documented in this encounter Plan of Treatment Not on filedocumented as of this encounter Visit Diagnoses Not on filedocumented in this encounter Care Teams Nursing Program Coordinator Relationship Specialty Start Date End Date Patricio Palmer M.D. PCP - General Family Medicine 12/18/[address] [place] [phone] documented as of this encounter
--- OUTSIDE RECORDS SUMMARY | 2022-02-22 12:33 | XMS_ITS | Encounter Summary ---
:1985 Author Organization [facility] Address [address] [place] [address] Care Team Providers Name Role Phone Patricio Palmer M.D. Primary Care Provider Reason for Visit Reason Comments Med Refill Encounter Details Date Type Department Care Team Description 09/03/2019 Refill Department of Neurology in Lina Pietro sheikh M.D. Med Refill [place], [place] [address] [facility] [address] [place] [address] [place] [address] [phone] Social History Tobacco Use Types Packs/Day Years [...] or relatives? How often do you attend synagogue or 1 to 4 times per year 05/18 moravian services? Do you belong to any clubs or No 06/09/2021 organizations such as synagogue groups, unions, fraternal or athletic groups, or [...] at Date Recorded Female 06/09/2021 2:09 PM GLASS TINTER documented as of this encounter Plan of Treatment Not on filedocumented as of this encounter Visit Diagnoses Not on filedocumented in this encounter Care Teams Fishing Tackle Repairer Relationship Specialty Start Date End Date Patricio Palmer M.D. PCP - General Family Medicine 12/18/[address] [place] [phone] documented as of this encounter
--- OUTSIDE RECORDS SUMMARY | 2022-02-22 12:33 | XMS_ITS | Encounter Summary ---
:1985 [facility] Organization [facility] Address [address] [place] [address] Care Team Providers Name Role Phone Patricio Palmer M.D. Primary Care Provider Encounter Details Date Type Department Care Team Description 04/22/2020 Clinical Communication Department of [facility] Jessica Kang Medicine, Sharif Layne M.S. [facility], in [address] [address] [place] [address] [phone] Social History Tobacco Use Types Packs/Day Years [...] 1 to 4 times per year 05/18 mormonism services? Do you belong to any clubs [...] at Date Recorded Female 06/09/2021 2:09 PM HOME HEALTH CARE PROVIDER documented as of this encounter Miscellaneous Notes Telephone Encounter - Emmie Palacios - 04/22/2020 10:51 AM CDT Contacted patient and provided her with recommendations per Aftab. Patient verbalized understanding. Telephone Encounter - Emmie Palacios - 04/22/2020 9:57 AM CDT Images from the original note were not included. Aftab, Patient is calling to discuss results which are abnormal. Do you have any information you would likenursing to share with patient? Telephone Encounter - Sheridan Cazares - 04/22/2020 9:48 AM CDT Please do not reply to sender,emails are not monitored. Thank you. If you need a prescription refill please call your pharmacy. Please allow 3 business days for processing. Expert RN: N/A (Med Refill Only) Call Center Template: ??? May we leave a message for you on this phone? yes What can I help you with today? Patient is calling regarding some test results. Please call to discuss these with her. ??? If Medication Refill: o What is [...] you with today? Thank you for calling [facility]. documented in this encounter Plan of Treatment Not on filedocumented as of this encounter Visit Diagnoses Not on filedocumented in this encounter Additional Health Concerns Infection Onset Date Last Indicated Resolved Time MRSA 04/20/2020 04/20/2020 07/19/2020 4:45 AM HOME HEALTH CARE PROVIDER documented as of this encounter Care Teams Wet Washer Machine Relationship Specialty Start Date End Date Patricio Palmer M.D. PCP - General Family Medicine 12/18/[address] [place] [phone] documented as of this encounter
--- OUTSIDE RECORDS SUMMARY | 2022-02-22 12:33 | XMS_ITS | Encounter Summary ---
:1985 Author Organization [facility] Address [address] [place] [address] Care Team Providers Name Role Phone Patricio Palmer M.D. Primary Care Provider Reason for Visit Reason Onset Date Comments Nicotine Dependence 03/04/2019 Encounter Details Date Type Department Care Team Description 03/04/2019 Clinical Department of Gleason, Mirian Monterroso ependence Communication Erik Garcia, Ph.D., Dependence, Wiltona C.T.T.S. [facility], in [address] [place] [phone] [place] [address] [place], [place] (Work) [phone] Social History Tobacco Use Types Packs/Day Years [...] 1 to 4 times per year 05/18 episcopal services? Do you belong to any clubs [...] Date Recorded Female 06/09/2021 2:09 PM MEDICAL SOCIOLOGIST documented as of this encounter Plan of Treatment Not on filedocumented as of this encounter Visit Diagnoses Not on filedocumented in this encounter Care Teams Clinical Informaticist Relationship Specialty Start Date End Date Patricio Palmer M.D. PCP - General Family Medicine 12/18/[address] [place] [phone] documented as of this encounter
--- OUTSIDE RECORDS SUMMARY | 2022-02-22 12:33 | XMS_ITS | Encounter Summary ---
:1985 Author Organization [facility] Address [address] [place] [address] Care Team Providers Name Role Phone Patricio Palmer M.D. Primary Care Provider Reason for Referral Outpatient (Routine) - Closed Specialty Diagnoses / Procedures Referred By Contact Refer red To Contact Family Medicine Patricio Palmer M.D. [address] [address] Referral ID Status Reason Start Date Expiration Date Visits Requ ested Visits Authorized [id number] Closed 03/17/2020 03/17/2021 1 1 Encounter Details Date Type Department Care Team Description 03/17/2020 Orders Only [facility] PCP TH MNT Monet Palmer M.D. [address] [place] [phone] (Wo rk) Social History Tobacco Use [...] at Date Recorded Female 06/09/2021 2:09 PM NEEDLE CONTROL CHENILLER documented as of this encounter Plan of Treatment Scheduled Referrals Name Type Priority Associated Diagnoses Order S [facility] Family Medicine Outpatient Referral Routine Expec juanito: office visit 03/31/2020, (clinic) Expires: 03/17/2023 documented as of this encounter Visit Diagnoses Not on filedocumented in this encounter Care Teams Director Of Physical Education Relationship Specialty Start Date End Date Patricio Palmer M.D. PCP - General Family Medicine 12/18/[address] [place] [phone] documented as of this encounter
--- OUTSIDE RECORDS SUMMARY | 2022-02-22 12:33 | XMS_ITS | Encounter Summary ---
:1985 Author Organization [facility] Address [address] [place] [address] Care Team Providers Name Role Phone Patricio Palmer M.D. Primary Care Provider Encounter Details Date Type Department Care Team Description 12/03/2019 Clinical Communication Department of Anders Welch, Medicine, Sharif Das [facility], in [address] [address] [place] [address] [phone] Social History Tobacco Use Types Packs/Day Years [...] or relatives? How often do you attend muslim or 1 to 4 times per year 05/18 church services? Do you belong to any clubs or No 06/09/2021 organizations such as muslim groups, unions, fraternal or athletic groups, or [...] at Date Recorded Female 06/09/2021 2:09 PM SUPERVISOR INSTRUMENT MECHANICS documented as of this encounter Miscellaneous Notes Telephone Encounter - Perla Alvarado L.P.N. - 12/03/2019 11:26 AM CDT Attempted to contact patient to help schedule physical with pap. No answer, generic voicemail. Unable to leave message. documented in this encounter Plan of Treatment Not on filedocumented as of this encounter Visit Diagnoses Not on filedocumented in this encounter Care Teams Commercial Development Manager Relationship Specialty Start Date End Date Patricio Palmer M.D. PCP - General Family Medicine 12/18/[address] [place] [phone] documented as of this encounter
--- OUTSIDE RECORDS SUMMARY | 2022-02-22 12:33 | XMS_ITS | Encounter Summary ---
:1985 Author Organization [facility] Address [address] [place] [address] Care Team Providers Name Role Phone Patricio Palmer M.D. Primary Care Provider Encounter Details Date Type Department Care Team Description 08/09/2019 Orders Only Department of Family Suad Avendano, So re Throat (Primary Medicine, Sharif DUEÑAS C.N.PFlex, Dx) Clinic, in [place] [address] [place] [phone] Social History Tobacco Use Types Packs/Day Years [...] or relatives? How often do you attend oriental orthodox or 1 to 4 times per year 05/18 methodist services? Do you belong to any clubs or No 06/09/2021 organizations such as oriental orthodox groups, unions, fraternal or athletic groups, [...] Date Recorded Female 06/09/2021 2:09 PM POWER WOOD SAWYER documented as of this encounter Plan of Treatment Not on filedocumented as of this encounter Procedures Procedure Name Priority Date/Time Associated Diagnosis Comme nts STREP GROUP A, PCR, Routine 08/09/2019 4:18 PM Re sults for this POCT POWER WOOD SAWYER procedure are i n the results section. STREP GROUP A, PCR, Routine 08/09/2019 4:00 PM Sore Throat Re sults for this POCT POWER WOOD SAWYER procedure are i n the results section. documented in this encounter Results Strep Group A, PCR, Point of Care (08/09/2019 4:18 PM POWER WOOD SAWYER) P athologist Signature Strep Group A, Negative Negative 08/09/2019 [facility] PCR, POCT 4:18 PM POWER WOOD SAWYER Specimen Anatomical Collection Method Collection Time Receive d Time (Source) Location / / Volume Laterality Varies 08/09/2019 4:18 PM 0 7:42 POWER WOOD SAWYER AM POWER WOOD SAWYER Generic Rals LAB POCT ORDERABLES - DEVICE Performing Organization Address City/State/ZIP Code Phon e Number [facility]- [address] [place] [phone] [facility] [place] [address] System [address] Strep Group A, PCR, Point of Care (08/09/2019 4:00 PM POWER WOOD SAWYER) Analysis Performed At Patho logist Time Signature Strep Group A, Collected DEFAULT 08/09/2019 [facility] PCR, POCT 4:06 PM POWER WOOD SAWYER Specimen Anatomical Collection Method Collection Time Receive d Time (Source) Location / / Volume Laterality Varies (Throat) 08/09/2019 4:00 PM 2019 4:06 POWER WO[employer] SAWYER PM P[employer]OD SAWYER Suad Avendano APRN, C.N.P., M.S.N. LAB POCT ORDERABL ES - DEVICE Performing Organization Address City/State/ZIP Code Phon e Number [facility]- [address] [place] [phone] [facility] [place] [address] System in [address] documented in this encounter Visit Diagnoses Diagnosis Sore Throat - Primary documented in this encounter Care Teams Edge Stitcher Relationship Specialty Start Date End Date Patricio Palmer M.D. PCP - General Family Medicine 12/18/[address] [place] [phone] documented as of this encounter
--- OUTSIDE RECORDS SUMMARY | 2022-02-22 12:34 | XMS_ITS | Encounter Summary ---
:1985 Author Organization [facility] Address [address] [place] [address] Care Team Providers Name Role Phone Patricio Palmer M.D. Primary Care Provider Reason for Referral Outpatient (Routine) - Closed Specialty Diagnoses / Procedures Referred By Contact Refer red To Contact Orthopedic Surgery Salas Sepulveda M.D. [facility] [address], [place] [address] Referral ID Status Reason Start Date Expiration Date Visits Requ ested Visits Authorized [id number] Closed 01/01/2019 01/01/2020 1 1 Reason for Visit Reason Comments Pain Encounter Details Date Type Department Care Team Description 01/01/2019 Office Visit Department of Salas Sepulveda Mass Knee Le ft (Primary Orthopedic Surgery in M.[place]jo Dx) [place], [place] [address] [address] [place], [place] [phone] Social History Tobacco Use Types Packs/Day Years [...] 06/09/2021 organizations such as yazidi groups, unions, fra[employer] by [employer] or athletic groups, or school groups? How [...] Date Recorded Female 06/09/2021 2:09 PM SENIOR LICENSING MANAGER documented as of this encounter Last Filed Vital Signs Vital Sign Reading Time Taken Comments Blood Pressure 108/62 01/01/2019 10:16 AM CDT Pulse 88 01/01/2019 10:16 AM CDT Temperature 36.8 ??C (98.2 ??F) 01/01/2019 10:16 AM CDT Respiratory Rate 18 01/01/2019 10:16 AM CDT Oxygen Saturation - - Inhaled Oxygen Concentration - - Weight 63 kg (138 lb 14.2 oz) 01/01/2019 10:16 AM CDT Height - - Body Mass Index 25.4 10/04/2018 9:48 AM CDT documented in this encounter Consult Notes Salas Sepulveda M.D. - 01/01/2019 10:15 AM CDT HISTORY OF PRESENT ILLNESS The patient is a 33-year-old female who has had noticed a mass on her left knee about a week ago. Itis painful to walk, it is painful when she gets into a deep squat to get back up again. The mass is over the superior somewhat lateral aspect of her knee. It is proximal to the patella. It is soft, somewhat mobile. It is about an inch and a half by an inch and a half in size. It is mildly tender. No redness or warmth. No obvious knee effusion, but she thinks it is getting bigger. CURRENT MEDICATIONS Include: 1. Tylenol. 2. Lacosamide. 3. Lamictal. 4. Imitrex. 5. Medical cannabis. ALLERGIES/CONTRAINDICATIONS 1. Hydrocodone. 2. Tramadol. MEDICAL HISTORY Includes a history of smoking, history of seizures with epilepsy, migraine headaches, kidney stone, psychoactive substance abuse disorder in remission. SOCIAL HISTORY Smoking and alcohol history recently is unknown. REVIEW OF SYSTEMS No recent fever, chills, chest pain, shortness of breath . OBJECTIVE PHYSICAL EXAMINATION General: She is a well-developed, well-nourished, pleasant, 33-year-old female, no acute distress. Oriented x3. Mood and affect are normal. Vital Signs: As per nurse's note that were taken today. Gait: She ambulates with a slight antalgic gait favoring the left side. Extremities: Left knee has range of motion 0 to at least 120 degrees, stable ligamentously. She has a mass on the superior, kind of slightly lateral aspect of her knee proximal to the patella. It is soft but mobile, mildly tender. No redness or warmth. Good range of motion of her left . Motor and sensation are intact in bilateral lower extremities. Bilateral feet are pink and warm. ASSESSMENT / PLAN #1 Left knee soft tissue mass From what she describes has come on rather quickly and the mass is about an inch and a half by an inch and a half in size. PLAN: The plan is to get an MRI scan of her left knee to evaluate the mass. documented in this encounter Plan of Treatment Scheduled Referrals Name Type Priority Associated Order Schedule Diagnoses Orthopedic Surgery Outpatient Referral Routine 1 Occurrences office visit starting 2018 (clinic) until 2 documented as of this encounter Visit Diagnoses Diagnosis Mass Knee Left - Primary documented in this encounter Care Teams Vocational Adviser Relationship Specialty Start Date End Date Patricio Palmer M.D. PCP - General Family Medicine 12/18/[address] [place] [phone] documented as of this encounter
--- OUTSIDE RECORDS SUMMARY | 2022-02-22 12:34 | XMS_ITS | Encounter Summary ---
:1985 Author Organization [facility] Address [address] [place] [address] Care Team Providers Name Role Phone Patricio Plamer M.D. Primary Care Provider Encounter Details Date Type Department Care Team Description 11/19/2018 Clinical Communication Department of Jay Walker Neurologic Surgery in [place], [place] [address] [facility] [address] [place] [phone] Social History Tobacco Use Types Packs/Day Years [...] or relatives? How often do you attend scientology or 1 to 4 times per year 05/18 zoroastrian services? Do you belong to any clubs or No 06/09/2021 organizations such as scientology groups, unions, fraternal or athletic groups, or [...] slept in a long term (including now)? Sex Assigned at Date Recorded Female 06/09/2021 2:09 PM MARZIPAN MAKER documented as of this encounter Miscellaneous Notes Telephone Encounter - Renetta Minaya R.N. - 11/19/2018 11:15 AM CDT Can double book the 10:30 slot 12/19 Telephone Encounter - Guadalupe Velasco - 11/19/2018 10:31 AM CDT Patient is wanting to reschedule her appointment. Neuro is wondering if we can accommodate her on 6-5? She is a possible DBS patient. Can I take a new endo slot or over book her? Thanks PASS Call Diana at [phone] documented in this encounter Plan of Treatment Not on filedocumented as of this encounter Visit Diagnoses Not on filedocumented in this encounter Care Teams Educational Director Relationship Specialty Start Date End Date Patricio Palmer M.D. PCP - General Family Medicine 12/18/[address] [place] [phone] documented as of this encounter
--- OUTSIDE RECORDS SUMMARY | 2022-02-22 12:34 | XMS_ITS | Encounter Summary ---
:1985 Author Organization [facility] Address [address] [place] [address] Care Team Providers Name Role Phone Patricio Palmer M.D. Primary Care Provider Encounter Details Date Type Department Care Team Description 10/10/2018 Orders Only Department of Nicotine [place], Derrick Rosenberg Gonda Ph.D., C.T.T.S [facility], in [address] [address] [place] [address] [place] [address] [phone] Social History Tobacco Use Types Packs/Day Years [...] or relatives? How often do you attend taoist or 1 to 4 times per year 05/18 religion services? Do you belong to any clubs or No 06/09/2021 organizations such as taoist groups, unions, fraternal or athletic groups, or [...] place to sleep or slept in a group home (including now)? Sex Assigned at Date Recorded Female 06/09/2021 2:09 PM MANAGER GLOBAL COMMUNICATIONS documented as of this encounter Plan of Treatment Not on filedocumented as of this encounter Visit Diagnoses Not on filedocumented in this encounter Care Teams Film Librarian Relationship Specialty Start Date End Date Patricio Palmer M.D. PCP - General Family Medicine 12/18/[address] [place] [phone] documented as of this encounter
--- OUTSIDE RECORDS SUMMARY | 2022-02-22 12:34 | XMS_ITS | Encounter Summary ---
:[address] [facility] Address [address] [place] [address] Care Team Providers Name Role Phone Patricio Palmer M.D. 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 Focal Partial in [place] [address] [address] [facility] Idiopathic Epilepsy [place], [place] And Epileptic [address] [place] [phone] Syndromes With [place], [place] [phone] Seizures Of Lo calized [phone] (Work) Onset Intractable [phone] Without Status (Fax) Epilepticus (HC C) Social History Tobacco Use Types Packs/Day Years [...] or more drinks on one occasion? Ne omreo 12/19/2018 Comment: Not asked Social Isolation Answer Date Recorded In a typical week, how many times do you More than three terry es a week 06/09/2021 talk on the phone with family, friends, or neighbors? How often do you get together with friends More than three t imes a week 06/09/2021 or relatives? How often do you attend baptism or 1 to 4 times per year 05/18 druze services? Do you belong to any clubs or No 06/09/2021 organizations such as baptism groups, unions, fraVeriSilicon Holdings or athletic groups, or school groups? How [...] at Date Recorded Female 06/09/2021 2:09 PM COST MANAGER documented as of this encounter Consult Notes Jay Walker M.D. - 12/19/2018 10:30 AM CDT #1 Medically intractable epilepsy #2 Status post SEEG by Dr. Wise with left frontal potential onset with some possibility of right frontal onset PLAN: Mrs. Coulter is a very pleasant 33-year-old woman with medically intractable epilepsy. Interestingly, since she started vaping marijuana since her last implantation, she has not had a seizure. I discussed with her if she continues to not have seizures, then there is no indication for surgery. However, if she becomes again medically intractable, we discussed the options as put forth by our previous conference including left frontal implantation with bilateral anterior nucleus into a single intellis battery versus the FDA approved implantation of bilateral anterior nucleus implantation with an Activa PC battery. I discussed with her that given her onset data on the SEEG, I would favor that she undergo bilateral anterior nucleus as there appears to either be a very large onset or poorly localized onset potential, and I believe that singular treatment of anterior nucleus may be more favorable over 4-electrode treatment. Regardless, we will have a discussion with Dr. Luong when he sees the patient and proceed from there. I discussed the 5% chance of complications associated with the implant including the potential for infection, CSF leakage, or other issues. I discussed the process and the recovery. All questions answered. documented in this encounter Plan of Treatment Not on filedocumented as of this encounter Visit Diagnoses Diagnosis Localization Related Focal Partial Idiop athic Epilepsy And Epileptic Syndromes With Seizures Of Localized Onset Intractable Without Status Epilepticus (HCC) documented in this encounter Care Teams Barrel Leveler Relationship Specialty Start Date End Date Patricio Palmer M.D. PCP - General Family Medicine 12/18/[address] [place] [phone] documented as of this encounter
--- OUTSIDE RECORDS SUMMARY | 2022-02-22 12:34 | XMS_ITS | Encounter Summary ---
:1985 Author Organization [facility] Address [address] [place] [address] Care Team Providers Name Role Phone Patricio Palmer M.D. Primary Care Provider Encounter Details Date Type Department Care Team Description 10/16/2018 Documentation Department of Neurologic Harini Thomason, Surgery in [facility] [address] [facility] [address] [place] [phone] Social History Tobacco Use Types Packs/Day Years [...] or relatives? How often do you attend yarsani or 1 to 4 times per year 05/18 gnosticist services? Do you belong to any clubs or No 06/09/2021 organizations such as yarsani groups, unions, fraternal or athletic groups, or [...] or slept in a custodial (including now)? Sex Assigned at Date Recorded Female 06/09/2021 2:09 PM DATA DESIGNER documented as of this encounter Progress Notes Yuko Thomason R.N. - 10/16/2018 11:45 AM CDT Ms. Coulter underwent implantation of sEEG electrodes by Dr. Wise on 09/24/18, with explantation on09/30/18. She was sent home with a few Oxycodone and we renewed her script last week due to continuedheadache. She called asking for another refill. The headache seems to be mainly on the left side of her head and feels like it starts deep and radiates out. There are times it forces her to lay down during the day. She has headache every day but it's worse at times. Tylenol does not always help and she's been taking Oxycodone 5 mg tid. Overall, she tells me its slowly improving. There are no other issues that she is concerned about. I will discuss with Dr. Wise. We can probably renew one more time and I would plan to follow up with her again next week. If there is anything else, I will let her know. She understands and agrees with the plan. documented in this encounter Plan of Treatment Not on filedocumented as of this encounter Visit Diagnoses Not on filedocumented in this encounter Care Teams Feather Shaper Relationship Specialty Start Date End Date Patricio Palmer M.D. PCP - General Family Medicine 12/18/[address] [place], [place] [address] [place] [phone] documented as of this encounter
--- OUTSIDE RECORDS SUMMARY | 2022-02-22 12:34 | XMS_ITS | Encounter Summary ---
:1985 Author Organization [facility] Address [address] [place] [address] Care Team Providers Name Role Phone Patricio Palmer M.D. Primary Care Provider Encounter Details Date Type Department Care Team Description 10/24/2018 Documentation Department of Neurologic Harini Thomason, Surgery in [facility] [address] [facility] [address] [place] [phone] Social History Tobacco Use Types Packs/Day Years [...] or slept in a residential (including now)? Sex Assigned at Date Recorded Female 06/09/2021 2:09 PM SIGNAL MAINTENANCE TECHNICIAN documented as of this encounter Progress Notes Yuko Thomason R.N. - 10/24/2018 10:59 AM CDT Followup: After sEEG intracranial monitoring, it has been determined that DBS is going to be the best approach so her care will be transferred from Dr. Wise to Dr. Walker. Future surgery will be organized by the physicians involved. documented in this encounter Plan of Treatment Not on filedocumented as of this encounter Visit Diagnoses Not on filedocumented in this encounter Care Teams Infrastructure Engineer Relationship Specialty Start Date End Date Patricio Palmer M.D. PCP - General Family Medicine 12/18/[address] [place] [phone] documented as of this encounter
--- OUTSIDE RECORDS SUMMARY | 2022-02-22 12:34 | XMS_ITS | Encounter Summary ---
:1985 Author Organization [facility] Address [address] [place] [address] Care Team Providers Name Role Phone Patricio Palmer M.D. Primary Care Provider Encounter Details Date Type Department Care Team Description 12/31/2018 Clinical Communication Department of Anders Welch, Medicine, Sharif Das [facility], in [address] [address] [place] [address] [phone] Social History Tobacco Use Types Packs/Day Years [...] or relatives? How often do you attend yazidism or 1 to 4 times per year 05/18 samaritan services? 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 - 01/01/2019 9:29 AM CDT Left message provider will address concern at appointment today. Telephone Encounter - Salas Sepulveda M.D. - 01/01/2019 8:14 AM CDT Will see at time of visit Telephone Encounter - Sheree Zapata - 12/31/2018 2:25 PM CDT Please do not reply to sender,emails are not monitored. Thank you. If you need a prescription refill please call your pharmacy. Please allow 3 business days for processing. Expert RN: Declined Call Center Template: ??? May we leave a message for you on this phone? yes What can I help you with today? Patient called to schedule an appointment with Ortho re: her left knee. Patient states that she hasa golf ball sized lump on the top of her knee. Patient states that she is able to move it around slightly, it is not solid- but it is firm. Patient states that she has a hx of a injury to that knee years ago. Patient states that it makes a grinding sound when she moves from a seated position to standing position. Patient has an appointment with Dr. Sepulveda on 01/01 at 10:[address] Sepulveda want any x-rays or other imaging before seeing the patient on 01/01?? I will send this information to the appropriate staff member who will look into your concern. Is there anything else I can help you with today? Thank you for calling [facility]. documented in this encounter Plan of Treatment Not on filedocumented as of this encounter Visit Diagnoses Not on filedocumented in this encounter Care Teams Upholsterer Helper Relationship Specialty Start Date End Date Patricio Palmer M.D. PCP - General Family Medicine 12/18/[address] [place] [phone] documented as of this encounter
--- OUTSIDE RECORDS SUMMARY | 2022-02-22 12:34 | XMS_ITS | Encounter Summary ---
:1985 Author Organization [facility] Address [address] [place] [address] Care Team Providers Name Role Phone Patricio Palmer M.D. Primary Care Provider Reason for Visit Outpatient (Routine) - Closed Specialty Diagnoses / Procedures Referred By Contact Refer red To Contact Orthopedic Surgery Salas Sepulveda M.D. [facility] [address] [phone] Referral ID Status Reason Start Date Expiration Date Visits Requ ested Visits Authorized [id number] Closed 01/01/2019 01/01/2020 1 1 Encounter Details Date Type Department Care Team Description 01/22/2019 Office Visit Department of Salas Sepulveda Mass Knee Le ft (Primary Orthopedic Surgery in M.D. Dx) [place], [place] [address] [place] [phone] Social History Tobacco Use Types Packs/Day Years [...] or relatives? How often do you attend anglican or 1 to 4 times per year 05/18 mormon services? 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 - 01/22/2019 9:15 AM CDT HISTORY OF PRESENT ILLNESS The patient is a 34-year-old female who had a soft tissue mass about the left knee, more superior and lateral. She had it for about a week. When I saw her, it was painful to walk, but the more walking she did, the more pain she had. An MRI scan showed an enhancing lesion in the subcutaneous tissue adjacent to the quadriceps, most likely due to inflammation or infection, but she had no symptoms of infection. No destructive changes. Neoplasm was unlikely. Ligaments and meniscus were all intact. No structural problems with her knee. The mass has now gone down. It does get a little bigger when she doesa lot a walking, but it is hard to feel now. OBJECTIVE PHYSICAL EXAMINATION Gait : On exam today, she ambulates with a normal heel-toe gait. Extremities : The left knee has excellent motion. The mass is fairly nonpalpable. I slightly think Ican feel a little something, but it is not real obvious, so it has gone down. ASSESSMENT / PLAN #1 Soft tissue mass, likely from inflammation that is resolving PLAN: Nonoperative treatment to watch it. If it comes back, she will see me back. documented in this encounter Plan of Treatment Not on filedocumented as of this encounter Visit Diagnoses Diagnosis Mass Knee Left - Primary documented in this encounter Care Teams Eyeglass Fitter Relationship Specialty Start Date End Date Patricio Palmer M.D. PCP - General Family Medicine 12/18/[address] [place] [phone] documented as of this encounter
--- OUTSIDE RECORDS SUMMARY | 2022-02-22 12:34 | XMS_ITS | Encounter Summary ---
:1985 Author Organization [facility] Address [address] [place] [id number] Care Team Providers Name Role Phone Patricio Palmer M.D. Primary Care Provider Reason for Visit Reason Onset Date Comments Katina 11/19/2018 Encounter Details Date Type Department Care Team Description 11/19/2018 Clinical Communication Department of Erick Luong Neurology gavino Anthony M.D., Ph.D. [address] [place] [phone] Social History Tobacco Use Types Packs/Day Years [...] 1 to 4 times per year 05/18 latter-day services? Do you belong to any clubs [...] slept in a senior living (including now)? 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 PCP - General Family Medicine 12/18/[address] [place] [phone] documented as of this encounter
--- OUTSIDE RECORDS SUMMARY | 2022-02-22 12:34 | XMS_ITS | Encounter Summary ---
:1985 Author Organization [facility] Address [address] [place] [address] Care Team Providers Name Role Phone Patricio Palmer M.D. Primary Care Provider Reason for Visit Reason Onset Date Comments Air pocket back of head 03/01/2019 Pietro Pickett Encounter Details Date Type Department Care Team Description 03/01/2019 Clinical Communication Department of Air anmol Pickett back of Neurology in Pietro Zuluaga M.D. head (Heather Pickett, [address] [facility] Pietro Purdy) [place], [place] [address] [facility] [address] [place], [place] [phone] (Work) [phone] Social History Tobacco Use Types Packs/Day Years [...] or relatives? How often do you attend bahai or 1 to 4 times per year 05/18 faith services? Do you belong to any clubs or No 06/09/2021 organizations such as bahai groups, unions, fraternal or athletic groups, or [...] slept in a group home (including now)? Education Answer Date Recorded What is the highest level of school you have GED or equivale nt 12/19/2018 completed or the highest degree you have received? 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 - 03/12/2019 12:38 PM CDT Left Message. Will send orders for her to return to see Dr. Wise to take a look at the nodule Telephone Encounter - Pietro Pickett M.D. - 03/08/2019 4:30 PM CDT Patient had been seizure free since September or so. Had one this weekend but says she was under significant stress due to a move. She feels drugged on her current regimen. She's also concerned that her Vimpat drug level was higher when checked recently compared to October. Her kidney and liver function were checked and were fine in October. She is on medical marijuana now, perhaps there is an interaction related to that. I reduced her Vimpat to 100 mg twice daily. Will check follow-up drug levels March 19, will double-check liver enzymes, CBC and creatinine then as well. She has a nodule related to her sEEG. It is uncomfortable. She clarified it is very hard and is not squishy like a seroma. I recommended she see neurosurgery back about that, perhaps it's a retained suture or sebaceous cyst. Telephone Encounter - Yuko Thomason R.N. - 03/08/2019 4:22 PM CDT Will review. Telephone Encounter - Sheridan Gunn R.N. - 03/08/2019 3:37 PM CDT HISTORY OF PRESENT ILLNESS Last seen 12/19/2018, seizures ASSESSMENT / PLAN Spoke to patient on the phone and relayed Dr. Pickett's feedback, Stay on previous lacosamide dose, do not decrease as previously suggested based on recent seizure. Bulge may be what is called a seroma, probably from stereo-EEG electrode evaluation; if she is concerned can request follow-up with Dr. Wise or his RADHA Patient is frustrated, as she wants to know where we should go from here. It was communicated to patient that being that she had another seizure on Monday we wouldn't want to decrease the dosage of hermedication further right now. Patient verbalized understanding but said she can't live like this. The side effects of the medications, feeling foggy to the point of having to lay down for a few hours, is affecting her daily life. She says this has been going on for six months, she is unable to take care of her kids because she is so foggy and tired. Do you have any other suggestions of where we go from here? Patient feels like that seizure took place because she was under a lot of stress, they were moving that day, and stress with her kids. Neurosurgery-patient would like further feedback regarding Dr. Pickett's feedback of a possible seroma, in reference to the Bulge on her head. Disposition/Recommendation: awaiting provider recommendations Education: patient/caller able to teach back Caller agreeable to plan of care: yes The following references were used: none Telephone Encounter - Sheridan Gunn R.N. - 03/08/2019 9:58 AM CDT HISTORY OF PRESENT ILLNESS Last seen 12/19/2018, seizures ASSESSMENT / PLAN Spoke to patient on the phone to relay results of lab work that was drawn on March 04, 2019. Patient was relayed that Lacosamide level was 8.8 and Lamotrigine level was 3.2 Patient then communicated that Monday evening, March 03, 2019 she had a grand mal seizure, that lasted a couple minutes. The s eizure was her typical symptoms. Due to having the seizure that evening, and increased stress, she did not take her evening dose of seizure medications 03/03. Then held her AM doses of seizure medications for a trough level of her medications on Monday03/04/19. Should patient still follow dosing recomme ndations that were to be given to patient, even with this new information? Or do you recommend patient stay on current dosages? Symptoms that triggered blood draw were since her surgery on September 30, 2018 she has episodes of feeling foggy, to the point of having to lay down for a couple hours to have this symptom subside. Patient will do what Dr. Pickett recommends, will continue her current dosage of anti seizure medications until she receives further feedback. Below is original recommendations for patient, Lacosamide level is near the middle of the range, lamotrigine level is at low end of the range. Symptoms could be medication related. Could try lowering lacosamide dose to 100 mg twice daily; if agreeable adjust med list and issue updated prescriptoin Disposition/Recommendation: awaiting provider recommendations Education: patient/caller able to teach back Caller agreeable to plan of care: yes The following references were used: none Telephone Encounter - Bertin Sena R.N. - 03/05/2019 8:52 AM CDT Lamotrigine and lacosamide levels pending. Telephone Encounter - Sheridan Gunn R.N. - 03/01/2019 4:09 PM CDT Awaiting lab test results to be drawn 03/04/19 at [facility]. lamotrigine and lacosamide level Telephone Encounter - Sheridan Dye R.N. - 03/01/2019 3:57 PM CDT [phone] Luisa Coulter CHIEF COMPLAINT / REASON FOR CALL Air pocket back of head (Pietro Pickett) HISTORY OF PRESENT ILLNESS is a patient of Dr. Wise who underwent REMOVE INTRACRANIAL ELECTRODES; SEEG lead removal on 09/30/2018 for further surgery she will transfer to Dr. Strickland Service PHONE ASSESSMENT She informed me she thinks its an air pocket underneath her skin. She said it is about the size of amarble. She does not think it's a suture. There is no reddness. She said it was getting bigger but it is only the size of a marble at this time without any concerning symptoms. She denies any issues with her skin or drainage of any sorts. I encouraged her to continue to monitor it and let us know if there is any change but at this time if it is an air pocket we wouldn't be concerned. The following portions of the patient's history were reviewed and updated as appropriate: allergies,current medications, family history, medical history, surgical history and problem list. PLAN Recommendation: self-care appropriate at this time . Education: patient/caller able to teach back All questions answered and verbalized understanding of all information. Caller agreeable to plan of care: Yes The following references were used: nursing clinical judgement Telephone Encounter - Janiya Gibson R.N. - 03/01/2019 3:25 PM CDT I think this is a VG pt. Telephone Encounter - Sheridan Gunn R.N. - 03/01/2019 3:09 PM CDT HISTORY OF PRESENT ILLNESS Last seen Dr. Pickett 12/19/2018, Last seen Dr. Wise & Dr. Alegria 09/30/2018 for removal of intracranial electrodes, SEEG lead removal. ASSESSMENT / PLAN Spoke to patient on the phone and relayed Dr. Pickett's feedback, Neurosurgery needs to field the call about the painful nodule Recommend lamotrigine and lacosamide level (trough) [facility] Patient will also await feedback from neurosurgery. Disposition/Recommendation: See above Education: patient/caller able to teach back Caller agreeable to plan of care: yes The following references were used: none Telephone Encounter - Sheridan Gunn R.N. - 03/01/2019 10:58 AM CDT HISTORY OF PRESENT ILLNESS Last seen Dr. Pickett 12/19/2018, Last seen Dr. Wise & Dr. Alegria 09/30/2018 for removal of intracranial electrodes, SEEG lead removal. ASSESSMENT / PLAN Spoke to patient on the phone. Patient called to report that she has a lump the size of a marble, onthe back of her head in the center. She first noticed this lump a few days ago, February 25, 2019. Thelump is sore to touch, and when you put pressure on the lump it feels like a needle is poking it. There is no drainage from the lump. Patient denies fever, chills, nausea, and/or vomiting. Patient has had no seizures since September 30, 2018, the date when she had her intracranial electrodes removed. Patient is inquiring as to whether or not this lump is related to her surgery she had to remove her electrodes. Patient would also like to discuss her antiepileptic medications with Dr. Pickett. She says since her surgery on September 30, 2018 she has episodes of feeling foggy, to the point of having to lay down for a couple hours to have this symptom subside. She is inquiring as to whether or not her medicationscould be causing this symptom. Current antiepileptic medications: lacosamide 100 mg tablet, Take 3 tablets by mouth as directed. 1 tab am, 2 tabs pm Lamotrigine, 100 mg tablet, Take 2 tablets BID Preferred pharmacy-[facility], [place]. Disposition/Recommendation: awaiting provider recommendations Education: patient/caller able to teach back Caller agreeable to plan of care: yes The following references were used: none Telephone Encounter - Mirian Wilburn - 03/01/2019 10:24 AM CDT Please return a call to Luisa Marylin. She had surgery back in September. She wanted to know if they had inserted into the back of her head, too. Because if so, she has an air pock in back of her head, too. She just noticed this by feeling it. She said she went to go put a hat on and noticed it was sore and when she rubbed her hand on it she felt it and said it is big. She can be reached back at [phone]. Haylee Combs documented in this encounter Plan of Treatment Not on filedocumented as of this encounter Results (ABNORMAL) CBC with Differential, Blood (03/27/2019 9:46 AM CDT) [facility] Method Time Signature Hemoglobin 14.7 11.6 - [...] Organization Address City/State/ZIP Code Phon e Number [facility]- [address] [place] [phone] [facility] Lamotrigine Level (03/27/2019 9:46 AM CDT) athologist Signature Lamotrigine, S 7.4 2.5 - 15.0 03/28/2019 mcg/mL 11:40 AM CDT Comment: ----ADDITIONAL INFORMATION---- This test was developed and its performa nce characteristics determined by [facility] in a manner consistent with CLIA [...] Organization Address City/State/ZIP Code Phon e Number [facility] [address] [place], [place] [phone] [facility] Lacosamide (Vimpat), Level (03/27/2019 9:46 AM CDT) athologist Signature Lacosamide, S 5.3 1.0 - 10.0 03/28/2019 mcg/mL 9:49 AM CDT Comment: ----ADDITIONAL INFORMATION---- This test was developed and its performa nce characteristics determined by [facility] in a manner consistent with CLIA [...] Organization Address City/State/ZIP Code Phon e Number [facility] [address] [place], [place] [address] Creatinine with Estimated GFR (03/27/2019 9:46 AM CDT) athologist Signature Creatinine, S 0.69 0.59 - 1.04 03/27/2019 mg/dL 11:02 AM CDT eGFR-Non >90 >=60 03/27/2019 Black/ mL/min/BSA 11:02 AM CDT Lithuanian Comment: ----ADDITIONAL INFORMATION---- Estimated GFR calculated using [...] Organization Address City/State/ZIP Code Phon e Number [facility]- [address] [place] [phone] [facility] AST (Aspartate Aminotransferase) (03/27/2019 9:46 AM CDT) Patholo gist Method Time Signature Aspartate 18 8 - 43 03/27/2019 Aminotransferase U/L 11:02 AM CDT (AST), S Specimen Anatomical Collection Method Collection Time Receive d Time (Source) Location / / Volume Laterality Blood (Blood, 03/27/2019 9:46 AM 03/27/20 9:46 Venous) CDT AM CDT Pietro Pickett M.D. LAB BLOOD ADD-ON Performing Organization Address City/[facility]/ZIP Code Phon e Number [facility]- [address] [place] [address] EMEKA Olguin [phone] [facility] Lamotrigine Level (03/04/2019 9:27 AM CDT) P athologist Signature Lamotrigine, S 3.2 2.5 - 15.0 03/05/2019 mcg/mL 11:44 AM CDT Comment: ----ADDITIONAL INFORMATION---- This test was developed and its performa nce characteristics determined by [facility] in a manner consistent with CLIA requirements. This test has not been cleared or approved by the [place] and Drug Administration. Specimen Anatomical Collection Method Collection Time Receive d Time (Source) Location / / Volume Laterality Blood (Blood, 03/04/2019 9:27 AM 03/05/20 7:32 Venous) CDT AM CDT Pietro Pickett M.D. LAB BLOOD NON ADD-ON Performing Organization Address City/State/ZIP Code Phon e Number [facility] [address] [place], [place] [address] [facility] documented in this encounter Visit Diagnoses Diagnosis Epilepsy Seizure Not Intractable Without Status Epilepticus (HCC) - Primary documented in this encounter Care Teams Physical Science Aide Relationship Specialty Start Date End Date Patricio Palmer M.D. PCP - General Family Medicine 12/18/[address] [place] [address] [place] Olguin [phone] documented as of this encounter
--- OUTSIDE RECORDS SUMMARY | 2022-02-22 12:34 | XMS_ITS | Encounter Summary ---
:1985 Author Organization [facility] Address [address] [place] [address] Care Team Providers Name Role Phone Patricio Palmer M.D. Primary Care Provider Reason for Visit Outpatient (Routine) - Closed Specialty Diagnoses / Procedures Referred By Contact Refer red To Contact Neurology Pietro Pickett M.D. 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 Migraine Headache Chronic [place], [place] [address] [place] [address] [place] [phone] Social History Tobacco Use Types Packs/Day Years [...] organizations such as latter day groups, unions, fragoodideazs or athletic groups, or school groups? How [...] place to sleep or slept in a chcf (including now)? Education Answer Date Recorded What is the highest level of school you have GED or equivale nt 12/19/2018 completed or the highest degree you have received? 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 - 12/19/2018 4:30 PM CDT CHIEF COMPLAINT / REASON FOR VISIT Return after testing INTERIM HISTORY Patient is improved since last visit. No seizures since shortly after leaving the hospital. Following discharge from the hospital she commenced THC through a vaping formulation. Since being on this she says her head is clear and she is seizure-free period Previously CBD oil was not effective. She is having nearly daily headaches. These began in the occipital region and spread to the rest of the head. They are associated with nausea but infrequently vomiting. She gets a throbbing sensation behind her eyes. Sometimes she will lay down and put sunglasses on but this does not get rid of them entirely. I appreciate Dr. Walker's assistance regarding neuromodulation options. 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 She attributes this to THC treatment. She notes that she takes Vimpat and lamotrigine together a causes significant fogginess. She has started spreading outthe doses and I indicated that is fine. Since her seizures are improved I do not recommend proceeding with neuromodulation therapy or neurostimulator implantation at this time. She will contact us if her seizure control worsens. I canceled Dr. Luong's appointment at this time. She pointed out a small area of swelling near 1 of the SEEG electrode implantation sites on her leftlower posterior temporal region. This area is not warm a red, it is mildly tender. The area of swelling is very small. I recommended if it increases in pain intensity her if it starts getting red she needs to contact Dr. Wise. TIME: Lndq-sf-ould time was 15 minutes with greater than 50% spent in counseling and coordination ofcare. Answers for HPI/ROS submitted by the patient on 12/19/2018 On average, how many servings of fruits and/or vegetables do you eat a day (serving size is equal to1 tennis ball)?: 4-5 Do you use extra virgin olive oil as your main source of fat in your diet?: No Do you have a regular dentist that you see at least once a year for a check-up?: Yes No general issues: Yes No eye issues: Yes No ENT issues: Yes No heart issues: Yes No respiratory issues: Yes No GI issues: Yes No muscle/bone issues: Yes No skin issues: Yes Headache: Yes No mental health issues: Yes No blood/lymph issues: Yes No urinary/reproductive issues: Yes Other not listed: Yes List what other preventive medications you are taking indicating current daily dose and maximum daily dose over the last 3 months.: tylenol Other not listed: Yes List what other injectable medications you are taking indicating current dosage and frequency over the last 3 months.: none Over the past 4 weeks, how many days have you had a headache? Enter a number. (Using a range of 0 to28 - the number cannot be greater than 28): 15 How would you rate the severity and disability that your average headache caused you?: moderate headache, normal activity difficult but possible dizziness/vertigo: Yes dizziness/vertigo: mild enough to tolerate if my headaches improve documented in this encounter Plan of Treatment Not on filedocumented as of this encounter Visit Diagnoses Diagnosis Localization Related Focal Partial Idiop athic Epilepsy And Epileptic Syndromes With Seizures Of Localized Onset Intractable Without Status Epilepticus (HCC) - Primary Migraine Headache Chronic documented in this encounter Care Teams Website Developer Relationship Specialty Start Date End Date Patricio Palmer M.D. PCP - General Family Medicine 12/18/[address] [place] [phone] documented as of this encounter
--- OUTSIDE RECORDS SUMMARY | 2022-02-22 12:34 | XMS_ITS | Encounter Summary ---
:1985 Author Organization [facility] Address [address] [place] [address] Care Team Providers Name Role Phone Patricio Palmer M.D. 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 [address] [place] [address] Referral ID Status Reason Start Date Expiration Date Visits Requ ested Visits Authorized [id number] Closed 10/25/2018 10/25/2019 1 1 Scheduling Instructions Asif Read; same day as [facility] Outpatient (Routine) - Closed Specialty Diagnoses / Procedures Referred By Contact Refer red To Contact Neurology Pietro Pickett M.D. [facility] 200 [place], [place] [phone] Referral ID Status Reason Start Date Expiration Date Visits Requ ested Visits Authorized [id number] Closed 10/25/2018 10/25/2019 1 1 Encounter Details Date Type Department Care Team Description 10/25/2018 Orders Only Department of Pietro Pickett on Related Neurology gavino Zuluaga M.D. Focal Partial [place], [place] [address] [facility] Idiopathic Epilepsy And [address] [place], [place] [address] [place] [phone] Localized Onset Intractable Without Status Ep ilepticus (HCC) (Primary Dx) Social History Tobacco Use Types Packs/Day Years [...] 1 to 4 times per year 05/18 anabaptism services? Do you belong to any clubs [...] slept in a nursing home (including now)? 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 documented as of this encounter Plan of Treatment Scheduled Referrals Name Type Priority Associated Diagnoses Order [facility] Neurology office Outpatient Referral Routine Expe cted: visit (clinic) 10/25/2018 (Approximate), Expires: 10/25/2021 Neurological Surgery Outpatient Referral Routine Localization Related Expected: - Epilepsy consult Focal Partial 10/26/19 19 (clinic) Idiopathic Epilepsy (Approxi mate), And Epileptic Expires: Syndromes With 10/25/2021 Seizures Of Localized Onset Intractable Without Status Epilepticus (HCC) documented as of this encounter Visit Diagnoses Diagnosis Localization Related Focal Partial Idiop athic Epilepsy And Epileptic Syndromes With Seizures Of Localized Onset Intractable Without Status Epilepticus (HCC) - Primary documented in this encounter Care Teams Dye House Wheel Operator Relationship Specialty Start Date End Date Patricio Palmer M.D. PCP - General Family Medicine 12/18/[address] [place] [phone] documented as of this encounter
--- OUTSIDE RECORDS SUMMARY | 2022-02-22 12:34 | XMS_ITS | Encounter Summary ---
:1985 Author Organization [facility] Address [address] [place] [address] Care Team Providers Name Role Phone Patricio Palmer M.D. Primary Care Provider Encounter Details Date Type Department Care Team Description 10/08/2018 Orders Only Department of Neurology in Michelle Monson R. [place], [place] EEG T. [address] [place] [address] [place], [place] [phone] Social History Tobacco Use Types Packs/Day Years [...] 1 to 4 times per year 05/18 sabianist services? Do you belong to any clubs [...] or slept in a long-term (including now)? 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 PCP - General Family Medicine 12/18/[address] [place] [phone] documented as of this encounter
--- OUTSIDE RECORDS SUMMARY | 2022-02-22 12:34 | XMS_ITS | Encounter Summary ---
:1985 Author Organization [facility] Address [address] [place] [address] Care Team Providers Name Role Phone Patricio Palmer M.D. Primary Care Provider Reason for Visit Reason Onset Date Comments [facility] Follow-up 10/10/2018 Encounter Details Date Type Department Care Team Description 10/10/2018 Clinical Communication Department of Mirian Diaz [facility] Follow-up Nicotine Dependence, M, Ph.D., [facility], [place], [place] [address] [facility] [address] [place] [phone] Social History Tobacco Use Types Packs/Day Years [...] or slept in a assisted (including now)? 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 PCP - General Family Medicine 12/18/[address] [place] [phone] documented as of this encounter
--- OUTSIDE RECORDS SUMMARY | 2022-02-22 12:34 | XMS_ITS | Encounter Summary ---
:1985 Author Organization [facility] Address [address] [place] [address] Care Team Providers Name Role Phone Patricio Palmer M.D. Primary Care Provider Encounter Details Date Type Department Care Team Description 10/16/2018 Clinical Communication Department of Yuko Thomason Neurologic Surgery in , R.N. [place], [place] [address] [facility] [address] [place] [phone] Social History Tobacco Use Types Packs/Day Years [...] or slept in a fci (including now)? 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 PCP - General Family Medicine 12/18/[address] [place] [phone] documented as of this encounter
--- OUTSIDE RECORDS SUMMARY | 2022-02-22 12:34 | XMS_ITS | Encounter Summary ---
:1985 Author Organization [facility] Address [address] [place] [address] Care Team Providers Name Role Phone Patricio Palmer M.D. Primary Care Provider Reason for Visit Reason Comments Neurology Epilepsy Surgery Conference Encounter Details Date Type Department Care Team Description 10/25/2018 Documentation Department of Cain Jay, Neurolog y Epilepsy Neurology in Pippa Titus, M.S . Surgery Conference [place], [place] [address] [facility] [address] [place] [phone] Social History Tobacco Use Types Packs/Day Years [...] or relatives? How often do you attend protestant or 1 to 4 times per year 05/18 jehovah's witness services? Do you belong to any clubs or No 06/09/2021 organizations such as protestant groups, unions, fraternal or athletic groups, or [...] or slept in a detention (including now)? Sex Assigned at Date Recorded Female 06/09/2021 2:09 PM CLINICAL CARE MANAGER documented as of this encounter Progress Notes Tacho Rajput M.D. - 10/25/2018 8:02 AM CDT Images from the original note were not included. Conference Summary: Chief Complaint: Surgical Epilepsy Conference History of Present Illness: Ms. Luisa Coulter was presented by Dr. Tacho Jay at the Surgical Epilepsy Conferenceon 10/25/2018. The conference was attended by Dr. Mj Valenzuela, Dr. Enrike Mackey, Dr. Pietro Pickett, Dr. Narendra Doe, Dr. Salas Odonnell, Dr. Violet Sebastian, Dr. Marisol Velásquez, Dr. Erick Luong from the Division of Epilepsy in Neurology. Dr. Jay Walker was present from the Department of Neurosurgery. Dr.Karl Venessa Orozco was present from the Department of Neuroradiology. In summary, Ms. Luisa Coulter is a 33 y.o. right-handed woman with medically intractable epilepsy since age of 18 months. She has family history of epilepsy. Semiology: Staring, ictal cry, right head turn, and evolution to GTC. At times get out of bed and rotates to her right before she falls. She has had multiple falls with injuries. It can occur out of wakefulness or sleep. Duration: 1-2 minutes. Frequency: 1-3/month. Functional status: She is independent for all of her ADLs, but does not feel comfortable taking careof her kids by herself due to frequent seizures. She is currently unemployed. 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 - Past AEDs VPA, CBZ, LEV - not efficacious - Current AEDs Lamotrigine 200 mg bid Lacosamide 100 mg / 200 mg Previous Work up: - Brain MRI (2014, 2018): T2 flair hyperintensities (nonspecific) over the left superior temporal lobe subcortical cortex and subinsular cortex. - PET-CT (2018): mild left anterior temporal hypometabolism Two Phase 1 EMU (2015, 2017): - IEDs: bitemporal independent, bifrontal spikes and polyspikes, generalized atypical SW. - Total of 6 seizures, with diffuse onset, maximal over the left frontotemporal region. SPECT unsuccessful. Semiology consistent with let hemisphere onset seizures. After last EMU in 2018, the conference consensus was that the her seizures were probably originatingover the left frontotemporal/limbic onset. Therefore, Phase 2 with SEEG was recommended with left frontotemporal/limbic coverage and minimal right frontal and temporal coverage. A MAGDALENE was also recommend to help guide implantation. MAGDALENE showed left posterior inferior temporal cluster of interictal abnormalities. The patient was admitted for SEEG implantation and monitored from 09/24/18 to 09/30/2018. - IEDs: abundant multifocal bilateral and diffuse bifrontal bursts - Seizures: 4 subclinical: 40-90 sec, arising from the left middle temporal gyrus (LAB10) with spread to superior temporal gyrus (LT6-9) 2 clinical w/ typical semiology, with onset over the bilateral frontotemporal contacts with left frontotemporal 0.1sec lead-in before right frontal activation with one of the seizures. Chronic(continuous) subthreshold cortical stimulation (CSCS) trial was performed from 09/27/18 at 11:00 to 09/29/18 at 13:19. More than 90% reduction in IEDs were noted. No seizures were detected. Stimulation Details: LAB: - LP: + - LY 6- 8- 10- 12+ LE: 4+ 8- 10- PW300, 2Hz, 3->4V, approximately 1.5 kOhm. CSCS trial summary: Impression/Report/Plan #1 Medically intractable focal epilepsy Localization: Probable left fronto-temporal It was the consensus of the conference that her seizure onset zone involved the left frontotemporal region, and potentially involved the right hemisphere as well. It was concluded that these results unfortunately do not support proceeding with a cortical resection for treatment of her seizures. The patient appeared to respond well to a trial of subthreshold stimulation. Two neurostimulation approaches were discussed. The first involved bilateral thalamic anterior nucleus DBS with the addition of two DBS electrodes for CSCS, one in the left frontal (superior frontal cortex, near prior LP14-16 contacts, which were maximal during seizure and interictal activity) and onein the left lateral temporal neocortex (near contact LB10). A second approach was discussed with limitation of anterior nucleus thalamic stimulation to the left side, and CSCS involving the left frontal and temporal regions. Consultation with Drs. Walker and Dr. Luong were recommended to provide counseling regarding DBS implantation in general and to form final plans for stimulation targets. Dr. Pickett will convey our recommendations to the patient. documented in this encounter Plan of Treatment Not on filedocumented as of this encounter Visit Diagnoses Not on filedocumented in this encounter Care Teams Annealing Furnace Tender Relationship Specialty Start Date End Date Patricio Palmer M.D. PCP - General Family Medicine 12/18/[address] [place] [phone] documented as of this encounter
--- OUTSIDE RECORDS SUMMARY | 2022-02-22 12:34 | XMS_ITS | Encounter Summary ---
:1985 Author Organization [facility] Address [address] [place] [address] Care Team Providers Name Role Phone Patricio Palmer M.D. Primary Care Provider Reason for Visit Reason Onset Date Comments [facility] Follow-up 10/12/2018 Outpatient (Routine) - Canceled Specialty Diagnoses / Procedures Referred By Contact Refer red To Contact Nicotine Dependence Mirian Diaz [place] [facility] Ph.D., [facility] [address] [place] [phone] Referral ID Status Reason Start Date Expiration Date Visits V isits Requested Authorized [id number] Canceled 09/25/2018 09/25/2019 1 1 Encounter Details Date Type Department Care Team Description 10/12/2018 Clinical Communication Department of Nicotine [facility] Follow-up Dependence, [facility] in [facility] potato chip cooker machine [address] [place] [phone] Social History Tobacco Use Types Packs/Day Years [...] 1 to 4 times per year 05/18 restorationism services? Do you belong to any clubs [...] slept in a senior care (including now)? Sex Assigned at Date Recorded Female 06/09/2021 2:09 PM TITLE I TEACHER documented as of this encounter Plan of Treatment Not on filedocumented as of this encounter Visit Diagnoses Not on filedocumented in this encounter Care Teams Sparmaker Relationship Specialty Start Date End Date Patricio Palmer M.D. PCP - General Family Medicine 12/18/[address] [place], [place] [address], [place] [phone] documented as of this encounter
--- OUTSIDE RECORDS SUMMARY | 2022-02-22 12:34 | XMS_ITS | Encounter Summary ---
:1985 Author Organization [facility] Address [address] [place] [address] Care Team Providers Name Role Phone Patricio Palmer M.D. Primary Care Provider Reason for Visit Reason Onset Date Comments Nicotine Dependence 02/25/2019 Encounter Details Date Type Department Care Team Description 02/25/2019 Clinical Department of [place], Mirian Valencia D ependence Communication Erik Garcia, Ph.D., Dependence, [place] [facility], in [address] [place] [phone] [place] [address] [place], [place] (Work) [phone] Social History Tobacco Use Types Packs/Day Years [...] or relatives? How often do you attend baptist or 1 to 4 times per year 05/18 denominational services? Do you belong to any clubs or No 06/09/2021 organizations such as baptist groups, unions, fraternal or athletic groups, or [...] for the very basics like Not v jluia hard 06/09/2021 food, housing, medical care, and [...] at Date Recorded Female 06/09/2021 2:09 PM PATIENT SAFETY COORDINATOR documented as of this encounter Plan of Treatment Not on filedocumented as of this encounter Visit Diagnoses Not on filedocumented in this encounter Care Teams Cna Ltc Relationship Specialty Start Date End Date Patricio Palmer M.D. PCP - General Family Medicine 12/18/[address] [place] [phone] documented as of this encounter
--- OUTSIDE RECORDS SUMMARY | 2022-02-22 12:34 | XMS_ITS | Encounter Summary ---
:1985 Author Organization [facility] Address [address] [place] [address] Care Team Providers Name Role Phone Patricio Palmer M.D. Primary Care Provider Reason for Visit Reason Comments Med Refill Encounter Details Date Type Department Care Team Description 10/29/2018 Refill Department of Neurology in [place]ina Pietro sheikh M.D. Med Refill [place], [place] [address] [facility] [address] [place] [address] [place] [phone] Social History Tobacco Use Types Packs/Day Years [...] at Date Recorded Female 06/09/2021 2:09 PM SHOULDER PUNCHER documented as of this encounter Plan of Treatment Not on filedocumented as of this encounter Visit Diagnoses Not on filedocumented in this encounter Care Teams Fuel Efficient Automobile Designer Relationship Specialty Start Date End Date Patricio Palmer M.D. PCP - General Family Medicine 12/18/[address] [place] [phone] documented as of this encounter
--- OUTSIDE RECORDS SUMMARY | 2022-02-22 12:34 | XMS_ITS | Encounter Summary ---
:1985 Author Organization [facility] Address [address] [place] [address] Care Team Providers Name Role Phone Patricio Palmer M.D. Primary Care Provider Reason for Visit Reason Comments Abdominal Pain pt states that she has a st abbing pain in her side LLQ that started this morning around 0630 and she states when you press on it it shoots around to the back Encounter Details Date Type Department Care Team Description 10/31/2018 Emergency [facility] Maria L Jeffries, P.A.-Aislinn. [address] [facility] [place] [address] Infection Urinary Tract (Primary Dx); Department Radha Medrano APRN, C.N.P. [address] [place] [address] [phone] Abdominal Pain [address] [facility] [place] [address] Social History Tobacco Use Types Packs/Day Years [...] at Date Recorded Female 06/09/2021 2:09 PM [employer] documented as of this encounter Last Filed Vital Signs Vital Sign Reading Time Taken Comments Blood Pressure 118/81 10/31/2018 10:45 AM CDT Pulse 72 10/31/2018 10:45 AM CDT Temperature 37.3 ??C (99.1 ??F) 10/31/2018 9:26 AM CDT Respiratory Rate 18 10/31/2018 9:26 AM CDT Oxygen Saturation 100% 10/31/2018 10:45 AM CDT Inhaled Oxygen Concentration - - Weight 60.3 kg (132 lb 15 oz) 10/31/2018 9:24 AM CDT Height - - Body Mass Index 24.31 10/04/2018 9:48 AM CDT documented in this encounter Discharge Instructions AttachmentsThe following attachments cannot be sent through Care Everywhere. Urinary Tract Infection Adult [id number] (Spanish)documented in this encounter Medications at Time of Discharge Medication Sig Dispensed Refills Start Date End Date ACETAMINOPHEN ORAL Take 500 mg by mouth 0 016 as needed. Takes 4 tablet (2,000mg total) by mouth as needed for headaches lamoTRIgine (LaMICtal) Take 2 tablets (200 120 tablet 5 07/18 100 mg tablet mg total) by mouth 2 (two) times a day. lacosamide (VIMPAT) 100 Take 3 tablets (300 90 tablet 5 03/08/2019 mg tablet mg total) by mouth as directed. 1 tab am, 2 tabs pm oxyCODONE-acetaminophen Take 1 tablet by 12 tablet 0 201811/03/2018 (PERCOCET) 5-325 mg per mouth every 6 (six) tabletIndications: Acute hours for 3 days Pain Indication: Acute Pain. sulfamethoxazole-trimeth Take 1 tablet by 20 tablet 0 10/3111/05/2018 oprim (BACTRIM DS) mouth every 12 800-160 mg per tablet (twelve) hours for 5 days. oxyCODONE (ROXICODONE) 5 Take 1 tablet (5 mg 15 tablet 0 01/01/2019 mg immediate release total) by mouth tabletIndications: Acute every 4 (four) hours Pain Exception as needed for moderate pain or score 4-6 of 10 Indication: Acute Pain Exception. documented as of this encounter ED Notes Radha Medrano, SPENSER, C.N.P. - 10/31/2018 10:03 AM CDT SUBJECTIVE: CHIEF COMPLAINT/REASON FOR VISIT: Abdominal Pain (pt states that she has a stabbing pain in her side LLQ that started this morning around 0630 and she states when you press on it it shoots around to the back) HISTORY OF PRESENT ILLNESS: This is a pleasant 33-year-old female who presents today with left lower quadrant abdominal pain. She states that she woke up at approximately 5:30 a.m. with the discomfort. She said a couple weeks agoshe had similar discomfort which had lasted few hours and went away on its own. She does have a history of renal stones and ovarian cyst. The patient states that she noted the discomfort and describes it as a stabbing sensation in the left lower quadrant which radiates to the left flank. She denies any vomiting but is a bit nauseous. She denies fever but did feel a bit warm and clammy this morning. She has had no vomiting. She denies diarrhea she states that her bowel patterns have been normal. She d enies black or tarry stools. She does have a history of ectopic and does have a history offallopian tube removal. She denies any chance of being today. She denies any vaginal bleeding or fall order discharge. REVIEW OF SYSTEMS: Constitutional: Negative. HENT: Negative. Eyes: Negative. Respiratory: Negative. Cardiovascular: Negative. Gastrointestinal: Positive for abdominal pain and nausea. Negative for abdominal distention, anal bleeding, blood in stool, constipation, diarrhea, hematemesis, rectal pain and vomiting. Endocrine: Negative. Genitourinary: Negative. Musculoskeletal: Negative. Skin: Negative. Allergic/Immunologic: Negative. Neurological: Positive for seizures. Negative for dizziness, tremors, syncope, facial asymmetry, speech difficulty, weakness, light-headedness, numbness, headaches and loss of balance. She has a history of intractable seizures and has been working at [facility] in [place] with recent S eeg procedure. Hematological: Negative. Psychiatric/Behavioral: Negative. ALLERGIES/MEDICATIONS: Reviewed in medical record PAST MEDICAL/FAMILY/SOCIAL HISTORY: Medical History: Past Medical History: Diagnosis Date ??? Conversion Disorder With Seizures Or Convulsions ??? Leak Amniotic Fluid ??? 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 Seizure ([facility]) ??? Stone Kidney Patient Active Problem List Diagnosis Date Noted ??? Nicotine Dependence Cigarettes With Withdrawal 09/25/2018 ??? Epilepsy And Recurrent Seizures NOS 09/24/2018 ??? 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 Epilepsy Seizure Not Intractable Without Status Epilepticus ([facility]) 08/10/2018 ??? Focal Epilepsy Symptomatic Intractable Without Status Epilepticus ([facility]) 02/07/2018 ??? Leak Amniotic Fluid 11/21/2014 ??? Spontaneous Onset Of Labor After 37 Completed Weeks Of Gestation But Before 39 Completed Weeks Gestation With Delivery By Planned Section ([facility]) 11/21/2014 ??? High Risk 10/10/2012 ??? Stone Kidney 01/06/2012 ??? Nicotine Dependence Cigarettes 01/06/2012 ??? 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 Other Psychoactive Substance Mild Use Disorder (Abuse) In Remission ([facility]) 02/19/2007 ??? 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 CRANIOTOMY JERRI HOLES Left 09/24/2018 Procedure: Application Ember Headframe, CTV to follow, Stereotactic implantation bilateral SEEG, depth electrodes, intraoperative EEG, post op CT head, electrode protocol to follow.; Surgeon: Zan Wise M.D.; Location: [facility] ??? LAPAROSCOPIC SALPINGECTOMY Left 2014 ??? REMOVE INTRACRANIAL ELECTRODES N/A 09/30/2018 Procedure: REMOVE INTRACRANIAL ELECTRODES; SEEG lead removal; Surgeon: Zan Wise M.D.; Location: [facility] ??? TONSILLECTOMY 2004 estimated year Family History: Reviewed in chart Social History: Social History Social History ??? Marital status: Single Spouse name: N/A ??? Number of children: N/A ??? Years of education: N/A Social History Main Topics ??? Smoking status: Current Every Day Smoker Packs/day: 0.50 Types: Cigarettes ??? Smokeless tobacco: Never Used ??? Alcohol use No ??? Drug use: No ??? Sexual activity: Yes Partners: Male control/ protection: None Other Topics Concern ??? None Social History Narrative ??? None History Alcohol Use No History Drug Use No OBJECTIVE: INITIAL VITAL SIGNS: Initial Vitals [10/31/18 0926] Temperature Pulse Rate Heart Rate Resp Rate Blood Pressure SpO2 37.3 ??C 92 -- 18 110/73 98 % Pain Score 9 PHYSICAL EXAMINATION: Constitutional: She appears well-developed and well-nourished. She appears not lethargic. No distress. HENT: Head: Normocephalic and atraumatic. Right Ear: Tympanic membrane normal. Left Ear: Tympanic membrane normal. Nose: Nose normal. Mouth/Throat: Oropharynx is clear and moist. Mucous membranes are moist. Poor dentition with dental caries noted. Eyes: Conjunctivae are normal. Right eye exhibits no discharge. Left eye exhibits no discharge. Neck: Normal range of motion. Neck supple. No JVD present. No neck adenopathy. No tracheal deviationpresent. No thyromegaly present. Cardiovascular: Normal rate, regular rhythm, S1 normal, S2 normal and normal heart sounds. Exam reveals no gallop and no friction rub. Pulses are no weak pulses. No murmur heard.Capillary refill: takes less than 3 seconds, Edema: no edema noted Pulmonary/Chest: Effort normal and breath sounds normal. There is normal air entry. No respiratory distress. Abdominal: Soft. Bowel sounds are normal. She exhibits no distension and no mass. There is no hepatosplenomegaly. There is tenderness. There is guarding. There is no rebound. No hernia. Tenderness on palpation noted in the left lower quadrant. She does have some voluntary guarding. No peritoneal signs. Musculoskeletal: Normal range of motion. She exhibits no edema, tenderness or deformity. Neurological: She is alert and oriented to person, place, and time. Skin: Skin is warm, dry, intact and normal color. She is not diaphoretic. Psychiatric: She has a normal mood and affect. Her behavior is normal. Judgment and thought content normal. Nursing note and vitals reviewed. ED COURSE: ED Course as of Oct 31 1121MonOct 31, 2018 1025 Urine positive for UTI. Negative for blood in urine. Checked with pharmacy bactrim ok to use with current seizure medications. Final Diagnoses: as of Oct 31 1121 Infection Urinary Tract Abdominal Pain INTERVENTIONS: Medications ketorolac injection 15 mg (TORADOL) (15 mg intravenous Given 10/31/18 1014) ondansetron (PF) injection 4 mg (ZOFRAN) (4 mg intravenous Given 10/31/18 1014) NaCl 0.9 % bolus 1,000 mL (0 mL intravenous Stopped 10/31/18 1114) LABS: Labs Reviewed URINALYSIS WITH MICROSCOPIC - Abnormal Result Value Source Midstream Clarity Cloudy (*) Color Yellow Blood Negative Nitrite Negative Leukocyte Esterase Trace (*) Protein Negative Glucose Negative Ketones, QI(U) Negative Bilirubin Negative pH 6.5 Specific [place] 1.020 Urobilinogen 0.2 White Blood Cells 11-20 (*) Red Blood Cells Occ-2 Squamous Cells 21-30 Bacteria Present (*) CBC WITH DIFFERENTIAL, B - Abnormal Hemoglobin 15.6 (*) Hematocrit 48.1 (*) Erythrocytes 5.45 (*) MCV 88.3 RBC Distrib Width 13.8 Platelet Count 325 Leukocytes 15.3 (*) Neutrophils 11.50 (*) Lymphocytes 2.62 Monocytes 1.13 (*) Eosinophils 0.05 Basophils 0.04 COMPREHENSIVE METABOLIC PANEL, S/P - Abnormal Potassium, P 4.8 Sodium, P 139 Chloride, P 102 Bicarbonate, P 26 Anion Gap, P 11 BUN, P 12 Creatinine, P 0.66 eGFR Black >90 eGFR Non-Black >90 Calcium, Total 10.2 (*) Glucose, P 97 Protein, Total, P 8.4 (*) Albumin, P 5.0 Aspartate Aminotransferase (AST), P 22 Alkaline Phosphatase, P 103 Alanine Aminotransferase (ALT), P 17 Bilirubin, Total, P 0.2 BACTERIAL CULTURE, AEROBIC + SUSC, URINE TEST, POCT, U (LAB) Test, POCT, U Negative LIPASE, S/P Lipase, P 31 ECG: RADIOLOGY: US Pelvis Transabdominal (Results Pending) PROCEDURES: See separate procedure note. ASSESSMENT AND PLAN: Impression and Plan The patient is seen and evaluated promptly after arrival to the emergency department. Multiple diagnoses considered. Nursing notes reviewed. The patient has left lower quadrant abdominal pain without evidence of fever and no significant vomiting. The top to diagnoses in my differential would be ovarian cyst or renal stone. Unfortunately ultrasound is not available today to look at the possibility of ovarian cyst. Urinalysis and urine are pending. If the urinalysis does show significant amount of blood I would opt to do a CT scan without contrast to look for stone. The patient would like to avoid any further radiation if possible. If the urinalysis is negative for blood we will treat her pain and give her IV fluids and check labs. These are all negative we will schedule her for an outpatient ultrasound and have her follow up. Labs are negative except for white blood cell count is very slightly elevated and the patient is monitored. She does feel better though does still have some left lower quadrant pain. We will have her get an ultrasound at the next available which is Monday. I will start her on antibiotics for her urinary tract infection. I did check with pharmacy and Bactrim is okay to give with her current anti seizure medication. She is also unable to take ibuprofen on therefore will give her short term prescription for 12 tablets of Percocet. She should return to the emergency department if she denotes uncontrolled pain, fever, worsening symptoms or other concerns.. Reviewed and summarized previous medical records including: Lab results and Documentation from previous visits. I personally reviewed the lab result(s) and my interpretation is: Normal DIAGNOSIS: Final diagnoses: [N39.0] Infection Urinary Tract [R10.9] Abdominal Pain ED DISCHARGE MEDS: ED Prescriptions Medication Sig Dispense Start Date End Date Auth. Provider sulfamethoxazole-trimethoprim (BACTRIM DS) 800-160 mg per tablet Take 1 tablet by mouth every 12 (twelve) hours for 5 days. 20 tablet 10/31/2018 11/05/2018 Radha Medrano APRN, C.N.P. oxyCODONE-acetaminophen (PERCOCET) 5-325 mg per tablet Take 1 tablet by mouth every 6 (six) hours for 3 days Indication: Acute Pain. 12 tablet 10/31/2018 11/03/2018 Radha Medrano APRN, C.N.P. DISPOSITION: Home or Self Long-Term or Self Care FOLLOW UP: Next Monday for an ultrasound. Will need to follow up with primary care provider next week to go results of ultrasound. Return to the emergency department if symptoms worsen or change. Radha Medrano [facility] Emergency Medicine Radha Medrano APRN, C.N.P. 10/31/18 1124 documented in this encounter Plan of Treatment Not on filedocumented as of this encounter Procedures Procedure Name Priority Date/Time Associated Comments Diagnosis CBC WITH DIFFERENTIAL, STAT 10/31/2018 10:11 R esults for this B AM CDT procedure are i n the results section. LIPASE, S/P STAT 10/31/2018 10:06 Results for this AM CDT procedure are i n the results section. COMPREHENSIVE STAT 10/31/2018 10:06 Results fo r this METABOLIC PANEL, S/P AM CDT procedu re are in the results section. TEST, POCT, STAT 10/31/2018 9:50 AM Results for this U (LAB) CDT procedure are i n the results section. URINALYSIS WITH STAT 10/31/2018 9:50 AM Result s for this MICROSCOPIC CDT procedure are i n the results section. BACTERIAL CULTURE, STAT 10/31/2018 9:37 AM Res ults for this AEROBIC + SUSC, URINE CDT proced ure are in the results section. documented in this encounter Results (ABNORMAL) CBC with Differential, Blood (10/31/2018 10:11 AM CDT) [facility] Method Time Signature Hemoglobin 15.6 (H) 11.6 - 10/31/2018 [facility] 15.0 g/dL 10:15 AM CDT [facility] [place] [facility] Hematocrit 48.1 (H) 35.5 - 10/31/2018 [facility] 44.9 % 10:15 AM T [facility] Erythrocytes 5.45 (H) 3.92 - 10/31/2018 [facility] 5.13 10:15 AM CDT [facility](12[facility] [place] [facility] MCV 88.3 78.2 - 10/31/2018 [facility] 97.9 fL 10:15 AM T [facility] RBC Distrib Width 13.8 12.2 - 10/31/2018 [facility] 16.1 % 10:15 AM [facility] [place] [facility] Platelet Count 325 157 - 371 10/31/2018 [facility] x10(9)/L 10:15 AM [facility] [place] [facility] Leukocytes 15.3 (H) 3.4 - 9.6 10/31/2018 [facility] x10(9)/L 10:15 AM [facility] Neutrophils 11.50 (H) 1.56 - 10/31/2018 [facility] 6.45 10:15 AM CDT [facility] [place] [facility] Lymphocytes 2.62 0.95 - 10/31/2018 [facility] 3.07 10:15 AM CDT [facility] [place] [facility] Monocytes 1.13 (H) 0.26 - 10/31/2018 [facility] 0.81 10:15 AM CDT [facility] [place] [facility] Eosinophils 0.05 0.03 - 10/31/2018 [facility] 0.48 10:15 AM CDT [facility] [place] [facility] Basophils 0.04 0.01 - 10/31/2018 [facility] 0.08 10:15 AM CDT [facility] [place] [facility] Specimen Anatomical Collection Method Collection Time Receive d Time (Source) Location / / Volume Laterality Blood (Blood, 10/31/2018 10:11 10/31/2018 Venous) AM CDT 10:11 AM CDT Radha Medrano APRN, C.N.P. LAB BLOOD ADD-ON Performing Organization Address City/State/ZIP Code Phon e Number [facility] [address] [facility], [place] [phone] [place] [facility] (ABNORMAL) Comprehensive Metabolic Panel (10/31/2018 10:06 AM [facility]) P athologist Signature Potassium, P 4.8 3.6 - 5.2 10/31/2018 [facility] mmol/L 10:35 AM [facility] [place] Sodium, P 139 135 - 145 10/31/2018 [facility] mmol/L 10:35 AM [facility] Chloride, P 102 98 - 107 10/31/2018 [facility] mmol/L 10:35 AM [facility] [place] Bicarbonate, P 26 22 - 29 10/31/2018 [facility] mmol/L 10:35 AM [facility] Anion Gap, P 11 7 - 15 10/31/2018 [facility] 10:35 AM [facility] [place] BUN (Blood Urea 12 6 - 21 10/31/2018 [facility] Nitrogen), P mg/dL 10:35 AM [facility] Creatinine, P 0.66 0.59 - 10/31/2018 [facility] 1.04 mg/dL 10:35 AM [facility] eGFR-Black/Afri >90 >=60 10/31/2018 [facility] can [place] mL/min/BSA 10:35 AM [facility] [place] Comment: ----ADDITIONAL INFORMATION---- Estimated GFR calculated using the 2009 CKD_EPI creatinine equation. eGFR Non-Black/ >90 >=60 mL/min/BSA 10/31/2018 10:35 AM [facility] [place] [facility] Comment: ----ADDITIONAL INFORMATION---- Estimated GFR calculated using the 2009 CKD_EPI creatinine equation. Calcium, Total, P 10.2 (H) 8.6 - 10.0 10/31/2018 10:35 [facility] mg/dL [facility] [place] Glucose, P 97 70 - 140 mg/dL 10/31/2018 10:35 [facility] Protein, Total, P 8.4 (H) 6.3 - 7.9 g/dL 10/31/2018 10:35 [facility] [place] [facility] Albumin, P 5.0 3.5 - 5.0 g/dL 10/31/2018 10:35 [facility] AM [facility] [place] [facility] Aspartate 22 8 - 43 U/L 10/31/2018 10:35 [facility] Aminotransferase (AST), P AM [facility] [place] [facility] Alkaline Phosphatase, P 103 35 - 104 U/L 10/31/2018 10 :35 [facility] AM [facility] Alanine Aminotransferase 17 7 - 45 U/L 10/31/2018 10: 35 [facility] (ALT), P AM [facility] [place] Bilirubin, Total, P 0.2 <=1.2 mg/dL 10/31/2018 10:35 [facility] [place] [facility] Specimen Anatomical Collection Method Collection Time Receive d Time (Source) Location / / Volume Laterality Blood (Blood, 10/31/2018 10:06 10/31/2018 Venous) AM CDT 10:11 AM CDT Radha Medrano APRN, [place]isl[place].N.P. LAB BLOOD ADD-ON Performing Organization Address City/[facility] Phon e Number [facility]- [address] [place] [phone] [place] [facility] Lipase (10/31/2018 10:06 AM CDT) athologist Signature Lipase, P 31 13 - 60 U/L 10/31/2018 [facility] 10:35 AM [facility] Specimen Anatomical Collection Method Collection Time Receive d Time (Source) Location / / Volume Laterality Blood (Blood, 10/31/2018 10:06 10/31/2018 Venous) AM CDT 10:11 AM CDT Radha Medrano APRN, C.N.P. LAB BLOOD ADD-ON Performing Organization Address City/[facility] Phon e Number [address], [place] [phone] [place] [facility] Test, POCT, Urine (lab) (10/31/2018 9:50 AM CDT) athologist Signature Negative 10/31/2018 [facility] Test, POCT, U 10:05 AM [facility] Specimen Anatomical Collection Method Collection Time Receive d Time (Source) Location / / Volume Laterality Urine (Urine, 10/31/2018 9:50 AM 11/01/19 19 9:50 Midstream) CDT AM CDT Maria L Jeffries P.A.-C. LAB POCT ORDERABLES - DEVICE Performing Organization Address City/State/ZIP Code Phon e Number [facility]- [address] [place] [phone] [place] [facility] (ABNORMAL) Urinalysis with Microscopic (midstream) (10/31/2018 9:50 AM CDT) P athologist Signature Source Midstream 10/31/2018 [facility] 9:58 AM [facility] Clarity Cloudy (A) Clear 10/31/2018 [facility] 10:05 AM [facility] Color Yellow 10/31/2018 [facility] 10:05 AM [facility] Comment: ----REFERENCE VALUE---- Colorless Yellow Perla Blood Negative Negative 10/31/2018 10:05 AM T [facility] [place] [facility] Nitrite Negative Negative 10/31/2018 10:05 AM T [facility] [place] Leukocyte Esterase Trace (A) Negative 10/31/2018 10:05 AM T [facility] [place] [facility] Protein Negative mg/dL 10/31/2018 10:05 AM [facility] [place] [facility] Comment: ----REFERENCE VALUE---- Negative Trace Glucose Negative Negative mg/dL 10/31/2018 10:[address] [facility] [place] [facility] Ketones, QI(U) Negative Negative mg/dL 10/31/2018 10:[address] [facility] [place] Bilirubin Negative Negative 10/31/2018 10:05 AM [facility] pH 6.5 5.0 - 8.0 10/31/2018 10:05 AM [facility] Specific [place] 1.020 1.001 - 1.035 10/31/2018 10:[address] [facility] [place] [facility] Urobilinogen 0.2 0.2 - 1.0 mg/dL 10/31/2018 10:05 AM [facility] [place] [facility] White Blood Cells 11-20 (A) /hpf 10/31/2018 10:05 AM [facility] CDT [facility] [place] [facility] Comment: ----REFERENCE VALUE---- Males: 0-3 Females: 0-10 Unknown: 0-10 Red Blood Cells Occ-2 0 - 2 /hpf 10/31/2018 10:05 AM CDT [facility] Squamous Cells 21-30 /hpf 10/31/2018 10:[address] [facility] [place] [facility] Bacteria Present (A) None Seen 10/31/2018 10:05 AM CDT [facility] Specimen Anatomical Collection Method Collection Time Receive d Time (Source) Location / / Volume Laterality Urine (Urine, 10/31/2018 9:50 AM 11/01/19 19 9:50 Midstream) CDT AM CDT Maria L Jeffries P.A.-C. LAB URINE ORDERABLES Performing Organization Address [facility] Phon e Number [facility]- [address] [place] [phone] [place] [facility] (ABNORMAL) Bacterial Culture, Aerobic + Susc, Urine (10/31/2018 9:37 AM CDT) Analysis Performed At Patho logist Time Signature Urine Culture Mixed 11/01/2018 [facility] dung. (A) 8:25 AM CDT [facility] Specimen Anatomical Collection Method Collection Time Receive d Time (Source) Location / / Volume Laterality Urine (Urine, 10/31/2018 9:37 AM 11/01/19 19 2:14 Midstream) CDT PM CDT Comment: Specimen Source Site: Urine Radha Medrano APRN C.N.PFlex LAB MICROBIOLOGY - GENERAL ORDERABLES Performing Organization Address City/[facility]/ZIP [facility] Phon e Number [facility] [address] [place] [phone] LAB documented in this encounter Visit Diagnoses Diagnosis Infection Urinary Tract - Primary Abdominal Pain documented in this encounter Administered Medications Inactive Administered Medications - up to 3 most recent administrations Medication Order MAR Action Action Date Dose Rate Site ketorolac injection 15 mg Given 10/31/2018 10:14 AM CDT 15 mg (TORADOL) 15 mg, intravenous, Once, On Mon10/31/18 at 1000, For 1 dose, Adult IV push rate: Over 15 seconds. Peds IV push rate: Over 1 minute. 60 mg dose only for IM, not recommended for IV. NaCl 0.9 % bolus 1,000 mL New Bag 10/31/2018 10:17 AM CDT 1,000 mL 1000 mL/hr 1,000 mL, intravenous, at 1,000 mL/hr, Administer over 1 Hours, Once, On Mon10/31/18 at 1000, For 1 dose ondansetron (PF) injection 4 mg (ZOFRAN) Given 10/31/2018 10:14 AM CDT 4 mg 4 mg, intravenous, Once, On Mon10/31/18 at 1000, For 1 dose documented in this encounter Active and Recently Administered Medications Times are shown in CDT. Scheduled Medication Order 10/29/2018 10/30/2018 10/31/2018 ketorolac injection 15 mg (TORADOL) (COMPLETED) 1014 (Given - Provider: Brie Perry R.N.) 15 mg, intravenous, Once, On Mon10/31/18 at 1000, For 1 dose, Adult IV push rate: Over 15 seconds. Peds IV push rate: Over 1 minute. 60 mg dose only for IM, not recommended for IV. NaCl 0.9 % bolus 1,000 mL (COMPLETED) 1017 (New Bag - Provider: Brie Perry R.N.)1114 (Stopped - Provider: Brie Perry R.N.) 1,000 mL, intravenous, at 1,000 mL/hr, A dminister over 1 Hours, Once, On Mon10/31/18 at 1000, For 1 dose ondansetron (PF) injection 4 mg (ZOFRAN) (COMPLETED) 1014 (Given - Provider: Brie Perry R.N.) 4 mg, intravenous, Once, On Mon10/31/18 at 1000, For 1 dose documented in this encounter Care Teams Tool Design Drafter Relationship Specialty Start Date End Date Patricio Palmer M.D. PCP - General Family Medicine 12/18/[address] [place], [place] [address] [phone] documented as of this encounter
--- OUTSIDE RECORDS SUMMARY | 2022-02-22 12:34 | XMS_ITS | Encounter Summary ---
:1985 Author Organization [facility] Address [address] [place] [address] Care Team Providers Name Role Phone Patricio Palmer M.D. Primary Care Provider Encounter Details Date Type Department Care Team Description 01/14/2019 Orders Only Department of Family Patricia Palmer M.D. Medicine, [facility], in [address] [place] [phone] [place] [address] [place] [phone] Social History Tobacco Use Types Packs/Day Years [...] or relatives? How often do you attend presybeterian or 1 to 4 times per year 05/18 yazdanism services? 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 PCP - General Family Medicine 12/18/[address] [place] [phone] documented as of this encounter
--- OUTSIDE RECORDS SUMMARY | 2022-02-22 12:34 | XMS_ITS | Encounter Summary ---
:1985 Author Organization [facility] Address [address] [place] [address] Care Team Providers Name Role Phone Patricio Palmer M.D. Primary Care Provider Reason for Visit MRI/CAT/PET Scan (Routine) - Closed Specialty Diagnoses / Procedures Referred By Contact Refer red To Contact Radiology Diagnoses Mass Knee Left Salas Sepulveda M.D. [facility] Region Procedures MR Knee Left without and with IV Contrast MR Knee Left without IV Contrast LA MRI LWR EXT JOINT WO CNTRST HC MRI LWR EXT JOINT WO CNTRST LA MRI LWR EXT JOINT WO CNTRST LA MRI LWR EXT JOINT WO/W CNTRST [address] HC MRI LWR EXT JOINT WO/W CN TRST LA MRI LWR EXT JOINT WO/W CNTRST [place] [phone] Referral ID Status Reason Start Date Expiration Date Visits Requ ested Visits Authorized [id number] Closed 01/01/2019 01/01/2020 1 1 Encounter Details Date Type Department Care Team Description 01/08/2019 Hospital Encounter Department of Radiology George Sepulveda, Mass Knee Left in Ricky Olguin M.D. [address] [facility] [address] [facility] [place] [address] [place] Rai [phone] Social History Tobacco Use Types Packs/Day Years [...] at Date Recorded Female 06/09/2021 2:09 PM STATOR TESTER documented as of this encounter Medications at [...] directed. 1 tab am, 2 tabs pm documented as of this encounter Plan of Treatment Not on filedocumented as of this encounter Procedures Procedure Name Priority Date/Time Associated Comments Diagnosis MR KNEE LEFT RAD - Routine 2019 2:54 Mass Knee Left Results f or this WITHOUT AND WITH (most inpatients PM CDT procedu re are in IV CONTRAST and all the results outpatients) section. documented in this encounter Results MR Knee Left without and with IV Contrast (2019 2:54 PM CDT) Anatomical Region Laterality Modality Lower Extremity, Knee, Musculoskeletal RST LOS, Left Magnetic Resonance Musculoskeletal ARZ LOS, Muskuloskeletal FLA LOS Specimen (Source) Anatomical Collection Method Collection Time Re ceived Time Location / / Volume Laterality 2019 3:15 PM CDT Impressions 2019 3:22 PM CDT 1. Enhancing lesion in the subcutaneous tissue adjacent to the quadriceps tendon. Finding is nonspecific but is mo st likely due to infection or other inflammation. Currently no destructive c hanges of the underlying bone or tendon are present. Neoplasm would be unlikely. 2. Tiny knee joint effusion. 3. If clinical findings persist, ultraso und guided biopsy may be a consideration Narrative 2019 3:22 PM CDT EXAM: MR KNEE LEFT WITHOUT AND WITH IV CONTRAST COMPARISON: Plain films of March 13 14 FINDINGS: Within the soft tissues and thomas bcutaneous tissues immediately superior and lateral to the upper pole of the pat gary there is an area of enhancement of roughly 14 mm diameter. This is high sig nal on STIR and low signal on T1-weighted images. There is extension a long the quadriceps tendon from this level superiorly but no penetration of t he tendon itself. Quadriceps tendon appears otherwise intact. There is a small knee joint effusion. Th e patella itself is felt to be intact though enhancing material extends to its margin. Within the knee itself, the menisci are intact. Anterior and posterior cruciate ligaments are intact. Medial collateral ligament, iliotibial band, and fibular collateral ligament are intact. A tiny j oint effusion is seen. Procedure Note Tyson Cortes M.D. - 2019Forma tting of this note might be different from the original. EXAM: MR KNEE LEFT WITHOUT AND WITH IV C ONTRAST COMPARISON: Plain films of March 13 FINDINGS: Within the soft tissues and thomas bcutaneous tissues immediately superior and lateral to the upper pole of the pat gary there is an area of enhancement of roughly 14 mm diameter. This is high sig nal on STIR and low signal on T1-weighted images. There is extension a long the quadriceps tendon from this level superiorly but no penetration of t he tendon itself. Quadriceps tendon appears otherwise intact. There is a small knee joint effusion. Th e patella itself is felt to be intact though enhancing material extends to its margin. Within the knee itself, the menisci are intact. Anterior and posterior cruciate ligaments are intact. Medial collateral ligament, iliotibial band, and fibular collateral ligament are intact. A tiny j oint effusion is seen. IMPRESSION: 1. Enhancing lesion in the subcutaneous tissue adjacent to the quadriceps tendon. Finding is nonspecific but is mo st likely due to infection or other inflammation. Currently no destructive c hanges of the underlying bone or tendon are present. Neoplasm would be unlikely. 2. Tiny knee joint effusion. 3. If clinical findings persist, ultraso und guided biopsy may be a consideration Salas Sepulveda M.D. IMG MRI PROCEDURES documented in this encounter Visit Diagnoses Diagnosis Mass Knee Left documented in this encounter Care Teams Contracts Intern Relationship Specialty Start Date End Date Patricio Palmer M.D. PCP - General Family Medicine 12/18/[address] [place] [phone] documented as of this encounter
--- OUTSIDE RECORDS SUMMARY | 2022-02-22 12:34 | XMS_ITS | Encounter Summary ---
:1985 Author Organization [facility] Address [address] [place] [address] Care Team Providers Name Role Phone Patricio Palmer M.D. Primary Care Provider Reason for Visit Reason Onset Date Comments rx refill 10/24/2018 Encounter Details Date Type Department Care Team Description 10/24/2018 Clinical Communication Department of Zan Wise M.D. rx refill Neurologic Surgery in [address] [place] [address] [place] [phone] [place], [place] [phone] (Work) [phone] Social History Tobacco Use Types Packs/Day Years [...] or relatives? How often do you attend confucianist or 1 to 4 times per year 05/18 anabaptism services? Do you belong to any clubs or No 06/09/2021 organizations such as confucianist groups, unions, fraternal or athletic groups, or [...] or slept in a halfway (including now)? 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 - 10/30/2018 9:46 AM CDT We are not renewing her Oxycodone. If she is still having so much pain, she needs to return to see us before we prescribe anything for her. This far out from surgery, we would not expect pain at a level that would require narcotics. Telephone Encounter - Kathy Aguero - 10/30/2018 8:36 AM CDT Caller/authorization: patrient Date of service: 09-30-18 surgery Provider/nurse: Dr. Wise Reason for call: pt is requesting a refill of her oxycodone. She said her head is still really sore from the surgery spots and not from the fall. Phone Call or Portal Message response: call [phone] Telephone Encounter - Geovanna Rios - 10/25/2018 12:22 PM CDT Pt called back and I did let her know that there would not be any refills of her prescription. Just wanted to make sure everyone is aware. Thanks Telephone Encounter - Yuko Thomason R.N. - 10/24/2018 3:32 PM CDT The fall is not part of her postop pain. We will not be renewing a narcotic script and this is non-negotiable. I am not sure what she is referring to when she talks about the CT scan. There is no testing at this time. She is being presented at Epilepsy conference tomorrow. After that, someone will be in touch with her regarding the plan and if further surgery is indicated, we will talk to her and organize. Any testing associated with that, will have to be done here at [facility]. I don't expect you to call her back. I just wanted to let you know where things are at in case she calls us back. Thanks! Telephone Encounter - Gabi Katz - 10/24/2018 9:41 AM CDT Called the patient back to relay Susan's message. Patient said she doesn't have a consistent PCP in her area and she thinks that the fall should be considered part of her post-op issues/pain. She is wanting us to prescribe the medications to get her through her pain for this week. She also said the bumps are getting better. She had questions concerning a CT order that she was supposed to be having as well. She is hoping to have this closer to home at one of the [facility] ([place] if possible). Please return her call to discuss. Thank you! Telephone Encounter - Yuko Thomason R.N. - 10/24/2018 9:14 AM CDT No. This is not postop pain. If she is having enough pain that she needs narcotics, she needs to seeher primary to be evaluated. Please let her know this. Thanks. Telephone Encounter - Diana Beyer - 10/24/2018 8:29 AM CDT Patient is requesting a refill of Oxycodone. She had a seizure last night and she hit the side of her head in the front so it made all of her pain come back. She ran out of pills yesterday morning. Can we refill? [phone] documented in this encounter Plan of Treatment Not on filedocumented as of this encounter Visit Diagnoses Not on filedocumented in this encounter Care Teams Division Leader Relationship Specialty Start Date End Date Patricio Palmer M.D. PCP - General Family Medicine 12/18/[address] [place] [phone] documented as of this encounter
--- OUTSIDE RECORDS SUMMARY | 2022-02-22 12:34 | XMS_ITS | Encounter Summary ---
:1985 Author Organization [facility] Address [address] [place] [address] Care Team Providers Name Role Phone Patricio Palmer M.D. 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 - 10/30/2018 11:09 AM CDT yes Telephone Encounter - Karen Yanes - 10/30/2018 11:00 AM CDT I am working with MARISOL to coordinate with Dr Walker, Dr iPckett, and Dr Luong. Can Dr Walker see pt on 11/22 around 2pm? Clinical question: neurostimulator for epilepsy CSCS plus DBS Please advise. documented in this encounter Plan of Treatment Not on filedocumented as of this encounter Visit Diagnoses Not on filedocumented in this encounter Care Teams Chute Tapper Relationship Specialty Start Date End Date Patricio Palmer M.D. PCP - General Family Medicine 12/18/[address] [place] [phone] documented as of this encounter
--- OUTSIDE RECORDS SUMMARY | 2022-02-22 12:34 | XMS_ITS | Encounter Summary ---
:1985 Author Organization [facility] Address [address] [place] [address] Care Team Providers Name Role Phone Patricio Palmer M.D. Primary Care Provider Reason for Visit MRI/CAT/PET Scan (Routine) - Closed Specialty Diagnoses / Procedures Referred By Contact Refer red To Contact Radiology Diagnoses Mass Knee Left Salas Sepulveda M.D. [facility] Region Procedures MR Knee Left without and with IV Contrast MR Knee Left without IV Contrast [place] MRI LWR EXT JOINT WO CNTRST HC MRI LWR EXT JOINT WO CNTRST [place] MRI LWR EXT JOINT WO CNTRST [place] MRI LWR EXT JOINT WO/W CNTRST [address] HC MRI LWR EXT JOINT WO/W CN TRST [place] MRI LWR EXT JOINT WO/W CNTRST [place] [address] Referral ID Status Reason Start Date Expiration Date Visits Requ ested Visits Authorized [id number] Closed 01/01/2019 01/01/2020 1 1 Encounter Details Date Type Department Care Team Description 2019 Hospital Encounter Department of Radiology George Sepulveda, in Ricky Lerner M.D. [address] [facility] [address] [place] [phone] [place] [phone] Social History Tobacco Use Types Packs/Day [...] 06/09/2021 organizations such as pentecostalism groups, unions, fraSynthorx or athletic groups, or school groups? 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 1 tab am, 2 tabs pm LORazepam (ATIVAN) 1 mg Take 1-2 tablets [...] results outpatients) section. documented in this encounter Visit Diagnoses Not on filedocumented in this encounter Administered Medications Inactive Administered Medications - up to 3 most recent administrations Medication Order MAR Action Action Date Dose Rate Site gadobutrol injection 1-14 Given 2019 2:54 PM 6 mL Left Antecubital mL (GADAVIST) CDT 1-14 mL, intravenous, Once in imaging, contrast, once in imaging, Starting on Mon01/15/19 at 1453, For 1 dose documented in this encounter Care Teams Ore Washer Relationship Specialty Start Date End Date Patricio Palmer M.D. PCP - General Family Medicine 12/18/[address] [place] [phone] documented as of this encounter
--- OUTSIDE RECORDS SUMMARY | 2022-02-22 12:34 | XMS_ITS | Encounter Summary ---
:1985 Author Organization [facility] Address [address] [place] [address] Care Team Providers Name Role Phone Patricio Palmer M.D. Primary Care Provider Reason for Visit Reason Onset Date Comments Nicotine Dependence 10/29/2018 Encounter Details Date Type Department Care Team Description 10/29/2018 Clinical Department of [place], Mirian Valencia D ependence Communication Erik Garcia, Ph.D., Dependence, [place] [facility], in [address] [place] [phone] [place] [address] [place], [place] (Work) [phone] Social History Tobacco Use Types Packs/Day Years [...] or relatives? How often do you attend worship or 1 to 4 times per year 05/18 shinto services? Do you belong to any clubs or No 06/09/2021 organizations such as worship groups, unions, fraternal or athletic groups, or [...] or slept in a chcf (including now)? 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 PCP - General Family Medicine 12/18/[address] [place] [phone] documented as of this encounter
--- OUTSIDE RECORDS SUMMARY | 2022-02-22 12:34 | XMS_ITS | Encounter Summary ---
:1985 Author Organization [facility] Address [address] [place] [address] Care Team Providers Name Role Phone Patricio Palmer M.D. Primary Care Provider Encounter Details Date Type Department Care Team Description 01/14/2019 Clinical Communication Department of Anders Welch, Medicine, [facility], in [address] [phone] [place] [address] [phone] Social History Tobacco Use Types Packs/Day Years [...] 1 to 4 times per year 05/18 christian services? 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 Sepulveda. Pt states that her MRI previously had to cancel she was unable to lie still. Pt wanting something to relax her before the MRI. Telephone Encounter - Sheree Zapata - 01/14/2019 3:46 PM CDT Please do not reply to sender,emails are not monitored. Thank you. If you need a prescription refill please call your pharmacy. Please allow 3 business days for processing. Expert RN: Declined Call Center Template: ??? May we leave a message for you on this phone? yes What can I help you with today? Pt called re: medication for MRI tomorrow. Pt states that she was unable to complete her MRI last week because she had a hard time laying still due to back pain. Pt states that the office technician told her to ask for medication to calm her down. Please call pt back as soon as possible as to weather Dr. Palmer is willing to prescribe her something. I will send this information to the appropriate staff member who will look into your concern. Is there anything else I can help you with today? Thank you for calling [facility]. documented in this encounter Plan of Treatment Not on filedocumented as of this encounter Visit Diagnoses Not on filedocumented in this encounter Care Teams Passenger Coach Driver Relationship Specialty Start Date End Date Patricio Palmer M.D. PCP - General Family Medicine 12/18/[address] [place] [phone] documented as of this encounter
--- OUTSIDE RECORDS SUMMARY | 2022-02-22 12:34 | XMS_ITS | Encounter Summary ---
:1985 Author Organization [facility] Address [address] [place] [address] Care Team Providers Name Role Phone Patricio Palmer M.D. Primary Care Provider Encounter Details Date Type Department Care Team Description 10/16/2018 Orders Only Department of Neurologic Orlin Thomason, Surgery in [facility] [address] [facility] [address] [place] [phone] Social History Tobacco Use Types Packs/Day Years [...] or relatives? How often do you attend christian or 1 to 4 times per year 05/18 alevism services? 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 PCP - General Family Medicine 12/18/[address] [place] [phone] documented as of this encounter
--- OUTSIDE RECORDS SUMMARY | 2022-02-22 12:34 | XMS_ITS | Encounter Summary ---
:1985 Author Organization [facility] Address [address] [place] [address] Care Team Providers Name Role Phone Patricio Palmer M.D. Primary Care Provider Reason for Visit Reason Onset Date Comments Phone call 12/20/2018 Encounter Details Date Type Department Care Team Description 12/20/2018 Clinical Communication Department of Pietro Pickett Phone call Neurology in [place], [place] [address] [facility] [address] [place] [phone] Social History Tobacco Use Types Packs/Day Years [...] or relatives? How often do you attend islam or 1 to 4 times per year 05/18 orthodox services? Do you belong to any clubs or No 06/09/2021 organizations such as islam groups, unions, fraternal or athletic groups, or [...] at Date Recorded Female 06/09/2021 2:09 PM CYCLE LIAISON documented as of this encounter Miscellaneous Notes Telephone Encounter - Bertin Sena R.N. - 12/20/2018 3:44 PM CDT Patient is needing recertification for her medical cannabis. Thanks Telephone Encounter - Mica Sena - 12/20/2018 1:15 PM CDT Patient is calling and states she needs a recertification letter from Dr. Pickett for her cannabis. She states that she did not pay her fee because she couldn't afford it and now that she can, they are telling her they need this letter. She would not give me information on if they provide this information for us to fill out and where to send to or if this is something that was done online. She refused to call them to clarify this and said we did this in March for her and there should not be any problem. I asked again for her to clarify and she again said they just need a recertification from Dr. Pickett and to have him send thisto them. She can be reached back at the number she called in on. Mica Combs documented in this encounter Plan of Treatment Not on filedocumented as of this encounter Visit Diagnoses Not on filedocumented in this encounter Care Teams Roller Mechanic Relationship Specialty Start Date End Date Patricio Palmer M.D. PCP - General Family Medicine 12/18/[address] [place] [phone] documented as of this encounter
--- OUTSIDE RECORDS SUMMARY | 2022-02-22 12:34 | XMS_ITS | Encounter Summary ---
:1985 Author Organization [facility] Address [address] [place] [address] Care Team Providers Name Role Phone Patricio Palmer M.D. Primary Care Provider Reason for Visit Reason Onset Date Comments Ra/Piyush 10/30/2018 Encounter Details Date Type Department Care Team Description 10/30/2018 Clinical Communication Department of [facility] gavino Zuluaga M.D. [place], [place] [address] 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 PCP - General Family Medicine 12/18/[address] [place] [phone] documented as of this encounter
--- OUTSIDE RECORDS SUMMARY | 2022-02-22 12:34 | XMS_ITS | Encounter Summary ---
:1985 Author Organization [facility] Address [address] [place] [address] Care Team Providers Name Role Phone Patricio Palmer M.D. Primary Care Provider Encounter Details Date Type Department Care Team Description 01/10/2019 Orders Only [facility] PCP [facility] Monet Jenkins M.D. [address] [place] [phone] (Wo rk) Social History Tobacco [...] or relatives? How often do you attend roman catholic or 1 to 4 times per year 05/18 yarsanism services? 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 PCP - General Family Medicine 12/18/[address] [place] [phone] documented as of this encounter
--- OUTSIDE RECORDS SUMMARY | 2022-02-22 12:34 | XMS_ITS | Encounter Summary ---
:1985 Author Organization [facility] Address [address] [place] [address] Care Team Providers Name Role Phone Patricio Palmer M.D. Primary Care Provider Reason for Visit Reason Comments Suture / Staple Removal Had surgery 3 weeks ago and had disolvable sutures which have not disolved and would like them removed. Encounter Details Date Type Department Care Team Description 10/16/2018 Emergency [facility] Jessy Long, Encounter F or Removal Department P.A.-C. Of Sutures (Primary Dx) [address] [place] [address] [place] [phone] Social History Tobacco Use Types Packs/Day [...] or slept in a half-way (including now)? 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 1 tab am, 2 tabs pm oxyCODONE (ROXICODONE) 5 Take 1 tablet (5 mg 15 tablet 0 01/01/2019 mg immediate release total) by mouth tabletIndications: Acute every 4 (four) hours Pain Exception as needed for moderate pain or score 4-6 of 10 Indication: Acute Pain Exception. documented as of this encounter Procedure Notes eJssy Long P.A.-C. - 10/16/2018 1:09 PM CDTAssociated Order(s): SUTURE REMOVAL Procedure Suture Removal Date/Time: 10/18/2018 4:32 PM Performed by: JESSY LONG Authorized by: JESSY LONG Consent: Consent obtained: Verbal Consent given by: Patient The benefits, risks and alternatives to the procedure and the potential need for sedation or anesthesia as well as the names, roles, and responsibilities of healthcare team members performing significant interventional tasks were discussed with the patient and/or decision maker.: yes The benefits, risks and alternatives to the possible need for blood products were discussed with the patient and/or decision maker.: Not addressed Pre-procedure details: Sutures were placed at [facility] facility: yes Indicaton: scheduled suture removal Location: Head/neck Head/neck location: Scalp Procedure details: Wound appearance: Good approximation of wound edges, good wound healing, clean, nonpurulent and dried drainage on wound edges Number of sutures removed: 6 Post-procedure details: Procedure completed successfully: yes Complications: no immediate complications Comments: Patient tolerated procedure well. Jessy Long P.A.-C. 10/18/18 1633 documented in this encounter ED Notes Jessy Long P.A.-C. - 10/16/2018 1:09 PM CDT Images from the original note were not included. SUBJECTIVE: CHIEF COMPLAINT/REASON FOR VISIT: Suture / Staple Removal (Had surgery 3 weeks ago and had disolvable sutures which have not disolved and would like them removed.) HISTORY OF PRESENT ILLNESS: Patient presents to emergency department for suture removal from her scalp. Patient has extensive history of complicated seizures and underwent neurological surgery [facility]. She had several sutures placed which were 1 suture per wound to her left parietal area and frontal area. Patient states her resolved will sutures and several of them did not dissolve her come out on their own and I have some mild crusting. She contacted her Neurosurgery service and they requested that she present to the nearest facility to have them removed. She denies any fever or swelling but she confirms irritation at the suture sites. History provided by: Patient package reinspector needed/used: no Suture / Staple Removal The sutures were placed more than 14 days ago. There has been no treatment since the wound repair. There has been no drainage from the wound. There is no redness present. There is no swelling present. There is no pain present. REVIEW OF SYSTEMS: Constitutional: Negative for chills and fever. HENT: Negative for trouble swallowing. Eyes: Negative for daphne-orbital edema and visual disturbance. Respiratory: Negative for chest tightness and shortness of breath. Cardiovascular: Negative for chest pain. Gastrointestinal: Negative for nausea and vomiting. Musculoskeletal: Negative for gait problem. Skin: Positive for itching. Allergic/Immunologic: Negative for immunocompromised state. Neurological: Negative for dizziness, syncope, light-headedness and loss of balance. Hematological: Does not bruise/bleed easily. Psychiatric/Behavioral: Negative for confusion. ALLERGIES/MEDICATIONS: Reviewed in medical record PAST MEDICAL/FAMILY/SOCIAL HISTORY: Medical History: Past Medical History: Diagnosis Date ??? Conversion Disorder With Seizures Or Convulsions ??? Leak Amniotic Fluid ??? 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 Seizure ([facility]) ??? Stone Kidney Patient Active Problem List Diagnosis Date Noted ??? Nicotine Dependence Cigarettes With Withdrawal 09/25/2018 ??? Epilepsy And Recurrent Seizures NOS 09/24/2018 ??? 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 Epilepsy Seizure Not Intractable Without Status Epilepticus ([facility]) 08/10/2018 ??? Focal Epilepsy Symptomatic Intractable Without Status Epilepticus ([facility]) 02/07/2018 ??? Leak Amniotic Fluid 11/21/2014 ??? Spontaneous Onset Of Labor After 37 Completed Weeks Of Gestation But Before 39 Completed Weeks Gestation With Delivery By Planned Section ([facility]) 11/21/2014 ??? High Risk 10/10/2012 ??? Stone Kidney 01/06/2012 ??? Nicotine Dependence Cigarettes 01/06/2012 ??? 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 Other Psychoactive Substance Mild Use Disorder (Abuse) In Remission ([facility]) 02/19/2007 ??? 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 No distress. HENT: Mouth/Throat: Mucous membranes are moist. Eyes: EOM are normal. Pupils are equal, round, and reactive to light. Cardiovascular: Normal rate, regular rhythm and normal heart sounds. Capillary refill: takes less than 3 seconds, Pulmonary/Chest: Effort normal and breath sounds normal. There is normal air entry. Musculoskeletal: Normal range of motion. Neurological: She is alert and oriented to person, place, and time. Skin: Skin is warm and dry. She is not diaphoretic. Patient has several sutures to scalp at surgical points. They appear to be dissolvable sutures of not fallen out. Some mild crusting of the actual suture but otherwise no noted redness or drainage fromscalp wounds all wounds appear to have sealed over well. Psychiatric: She has a normal mood and affect. Her behavior is normal. Judgment and thought content normal. Nursing note and vitals reviewed. ED COURSE: ED Course as of Oct 18 1630 Tue Oct 16, 2018 1430 Patient's several sutures are intact and scalp with 2 sites requiring some saline soaking to help loosen the sutures all sutures were able to be elevated and clipped and intact sutures removed. There is no wound dehiscence present no sign of any drainage and no sign of any redness around the areas. Final Diagnoses: as of Oct 18 1630 Encounter For Removal Of Sutures INTERVENTIONS: Medications - No data to display LABS: Labs Reviewed - No data to display ECG: RADIOLOGY: No orders to display PROCEDURES: Suture removal See separate procedure note. ASSESSMENT AND PLAN: Impression and Plan Conditions considered: Suture removal postoperative, postoperative skin infection due to suture/foreign body. DIAGNOSIS: Final diagnoses: [Z48.02] Encounter For Removal Of Sutures ED DISCHARGE MEDS: ED Prescriptions None DISPOSITION: Home or Self Fpc or Self Care FOLLOW UP: Jessy Long PA-C Emergency Medicine Jessy Long P.A.-C. 10/18/18 1633 documented in this encounter Plan of Treatment Not on filedocumented as of this encounter Procedures Procedure Name Priority Date/Time Associated Diagnosis Comme nts SUTURE REMOVAL Routine 10/16/2018 1:09 PM Results for this CDT procedure are i n the results section . documented in this encounter Results Suture Removal (10/16/2018 1:09 PM CDT) Narrative Jessy Long P.A.-C. - 10/16/2018 1:09 PM CDT Jessy Long P.A.-C. ? 10/18/2018 ??4:33 PM Suture Removal Date/Time: 10/18/2018 4:32 PM Performed by: JESSY LONG Authorized by: JESSY LONG Consent: ??Consent obtained: ??Verbal ??Consent given by: ??Patient ??The benefits, risks and alternatives to the procedure and the potential need for sedation or anesthesia as well as the names, roles, and responsibilities of healthcare team memb ers performing significant interventional tasks were discussed with the patient and/or decision maker.: yes ?The benefits, risks and alternatives to the possible need for blood products were discussed with the patient and/or decision maker.: ??Not addressed Pre-procedure details: ??Sutures were placed at [facility] facility: yes ?Indicaton: scheduled suture removal ?Location: ??Head/neck ??Head/neck location: ??Scalp Procedure details: ??Wound appearance: ??Good approximatio n of wound edges, good wound healing, clean, nonpurulent and dried dr lowe on wound edges ??Number of sutures removed: ??6 Post-procedure details: ??Procedure completed successfully: yes ?Complications: no immediate complicat ions ?? Comments: ?? Patient tolerated procedure well. Jessy Long P.A.-C. PROCEDURE/MINOR SURGICAL ORD ERABLES documented in this encounter Visit Diagnoses Diagnosis Encounter For Removal Of Sutures - Prima ry documented in this encounter Care Teams Fibrous Wallboard Inspector Relationship Specialty Start Date End Date Patricio Palmer M.D. PCP - General Family Medicine 12/18/[address] [place] [phone] documented as of this encounter
--- OUTSIDE RECORDS SUMMARY | 2022-02-22 12:35 | XMS_ITS | Encounter Summary ---
:1985 Author Organization [facility] Address [address] [place] [address] Care Team Providers Name Role Phone Patricio Palmer M.D. Primary Care Provider Reason for Visit Reason Comments Med Refill Oxycodone Encounter Details Date Type Department Care Team Description 10/04/2018 Refill Department of [facility] Jennifer Pimentel, Med Refill (Oxycodone) Medicine, [facility], R.N. in [place], [place] [phone] [address] 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 - 10/05/2018 5:40 PM CDT See note. Telephone Encounter - Julio Lemons R.N. - 10/05/2018 3:54 PM CDT Pt of Dr. Wise. Telephone Encounter - Gabi Katz - 10/05/2018 3:53 PM CDT Please see communication for Oxycodone refill request. Telephone Encounter - Jennifer Pimentel R.N. - 10/05/2018 3:32 PM CDT Spoke with patient to inform. She states she forgot to mention it at yesterday's office visit with Scarlett. She has 4 tablets remaining. She reports she is taking about 3 tablets per day and states her pain is averaging a 7-8 on 0-10 scale. She is also utilizing Tylenol for pain. She is requesting refillon the oxycodone 5mg IR tablets. Patient requested journalists and other writers send request to neuro surgery for refill. Telephone Encounter - Suad Avendano APRN, C.N.P., M.S.N. - 10/05/2018 12:44 PM CDT Post hospital follow-up visit completed, patient did not request refills of this medication, neurology team to dispense as appropriate. Telephone Encounter - Nurys Pimentelthu Eugene R.N. - 10/04/2018 4:29 PM CDT Patient has not seen listed PCP Dr. Palmer since 02/18/17. Patient did see Scarlett Avendano CNP today. Willpend rx refill request to Scarlett. Oxycodone 5mg IR tablet prescribed by Dr. Kody Kumar ([place]) during hospitalization. Qty # 20 tablets. Script lists prescribing date of 09/28/18. 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 HOSPITAL COURSE On the day of admission, the patient was taken to the operative room by Dr. Wise for the procedure listed above. The intraoperative as well as the immediate postoperative course were uncomplicated. The patient was transferred from the PACU to the Neurosurgical ICU. ?? Neurology monitored and stimulated for the duration of her ICU course. After testing was complete, the SEEGs were removed and she was transferred to the floor. ?? She was ambulating and tolerating an oral diet at the time of dismissal. She had optimal pain control on oral medications. Her incision remained clean and intact. She then met criteria for dismissal and was discharged home. Please do not reply to sender,emails are not monitored. Thank you. If you need a prescription refill please call your pharmacy. Please allow 3 business days for processing. Expert RN: N/A (Med Refill Only) Call Center Template: ??? May we leave a message for you on this phone? yes What can I help you with today? refill ??? If Medication Refill: o What is the name and strength of the medication? Oxycodone 5 mg o What do you use the medication for? pain o How many pills do you have left? 7 pills o What pharmacy do you use (include location)? I will send this information to the appropriate staff member who will look into your concern. Is there anything else I can help you with today? Thank you for calling [facility]. documented in this encounter Plan of Treatment Not on filedocumented as of this encounter Visit Diagnoses Not on filedocumented in this encounter Care Teams Commodity Broker Relationship Specialty Start Date End Date Patricio Palmer M.D. PCP - General Family Medicine 12/18/[address] [place] [phone] documented as of this encounter
--- OUTSIDE RECORDS SUMMARY | 2022-02-22 12:35 | XMS_ITS | Encounter Summary ---
:1985 Author Organization [facility] Address [address] [place] [address] Care Team Providers Name Role Phone Patricio Palmer M.D. 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 (HCC) Procedures RI IMPL STRTCTC ELECTRODES CEREB Application [place] Headframe, CTV to follow, Stereotactic implantation of Left SEEG/depth electrodes, intraoperative EEG; post op CT head - electrode protocol to follow Referral ID Status Reason Start Date Expiration Date Visits Requ ested Visits Authorized [id number] 1 1 Encounter Details Date Type Department Care Team Description 09/24/2018 Hospital Encounter Department of Zan Wise Localiza tion Related Radiology in [place] Focal Partial [place], [place] [address] [facility] Idiopathic Epilepsy [address] [place], [place] [address] Syndromes With [phone] Seizures Of Localized Onset Intractable [phone] Without Status (Fax) Epilepticus (HC C) Social [...] slept in a care home (including now)? 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 Takes 4 tablet (2,000mg total) by mouth as needed for headaches lamoTRIgine (LaMICtal) Take 2 tablets (200 120 tablet 5 07/18 100 mg tablet mg total) by mouth 2 (two) times a day. cefadroxil (DURICEF) 500 Take 1 capsule (500 14 capsule 0 10/05/2018 mg capsule mg total) by mouth 2 (two) times a day for 7 days. lacosamide (VIMPAT) 100 Take 3 tablets (300 90 tablet 5 03/201810/29/2018 mg tablet mg total) by mouth as directed. 1 tab am, 2 tabs pm oxyCODONE (ROXICODONE) 5 Take 1 tablet (5 mg 20 tablet 0 09/28/2018 mg immediate release total) by mouth tabletIndications: Acute every 4 (four) hours Pain Exception as needed for moderate pain or score 4-6 of 10 Indication: Acute Pain Exception. oxyCODONE (ROXICODONE) 5 Take 1 tablet (5 mg 20 tablet 0 10/08/2018 mg immediate release total) by mouth tabletIndications: Acute every 4 (four) hours Pain Exception as needed for moderate pain or score 4-6 of 10 Indication: Acute Pain Exception. sennosides-docusate Take 2 tablets by 20 tablet 1 9 10/16/2018 sodium (SENOKOT-S) mouth at bedtime as 8.6-50 mg per tablet needed for constipation. documented as of this encounter Plan of Treatment Not on filedocumented as of this encounter Procedures Procedure Name Priority Date/Time Associated Comments Diagnosis CT HEAD WITHOUT RAD - Routine 09/24/2018 1:30 Localization Results for this IV CONTRAST (most inpatients PM CDT Related Focal procedure are in and all Partial Idiopathic the resul ts outpatients) Epilepsy And section. Epileptic Syndromes With Seizures Of Localized Onset Intractable Without Status Epilepticus (HCC) documented in this encounter Results CT Head without IV Contrast (09/24/2018 1:30 PM CDT) Anatomical Region Laterality Modality Head, Neuroradiology RST LOS, Neuroradiology ARZ LOS, N/A Computed Tomography Neuroradiology FLA LOS Specimen (Source) Anatomical Collection Method Collection Time Re ceived Time Location / / Volume Laterality 09/24/2018 1:36 PM CDT Impressions 09/24/2018 1:42 PM CDT IMPRESSION: Interval placement of multiple SEEG electrodes. Examination is otherwise unchanged. The subtle increase d T2 signal within the superior left temporal gyrus noted on MRI 03/15/2018 is difficult to appreciate on CT. Narrative 09/24/2018 1:42 PM CDT EXAM: CT HEAD WITHOUT IV CONTRAST COMPARISON: Stereotactic planning CT elvira ogram 09/24/2018, MRI head with IV gadolinium 07/16/2018 and MRI head witho ut gadolinium 03/15/2018. Procedure Note Renato Palacio M.D. - 09/24/2018For matting of this note might be different from the original. EXAM: CT HEAD WITHOUT IV CONTRAST COMPARISON: Stereotactic planning CT elvira ogram 09/24/2018, MRI head with IV gadolinium 07/16/2018 and MRI head witho ut gadolinium 03/15/2018. IMPRESSION: Interval placement of multip le SEEG electrodes. Examination is otherwise unchanged. The subtle increase d T2 signal within the superior left temporal gyrus noted on MRI 03/15/2018 is difficult to appreciate on CT. Zan Wise M.D. IMG CT PROCEDURES documented in this encounter Visit Diagnoses Diagnosis Localization Related Focal Partial Idiop athic Epilepsy And Epileptic Syndromes With Seizures Of Localized Onset Intractable Without Status Epilepticus (HCC) documented in this encounter Care Teams Slide Fasteners Inspector Relationship Specialty Start Date End Date Patricio Palmer M.D. PCP - General Family Medicine 12/18/[address] [place] [phone] documented as of this encounter
--- OUTSIDE RECORDS SUMMARY | 2022-02-22 12:35 | XMS_ITS | Encounter Summary ---
:1985 Author Organization [facility] Address [address] [place] [address] Care Team Providers Name Role Phone Patricio Palmer M.D. Primary Care Provider Reason for Visit Reason Onset Date Comments [facility] Med Request 09/25/2018 Encounter Details Date Type Department Care Team Description 09/25/2018 Clinical Communication Department of Mirian Diaz [facility] Med Request Erik M, Ph.D., Dependence, Gonda 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 - 09/25/2018 2:24 PM CDT [facility] the [facility] [place], [place].: Chantix starter and refills (35 mg) 21 +14 mg in patches 10 mg Inhaler Thank you. documented in this encounter Plan of Treatment Not on filedocumented as of this encounter Visit Diagnoses Diagnosis Counseling Smoking Cessation - Primary Nicotine Dependence Cigarettes With With drawal documented in this encounter Care Teams Bed Maker Relationship Specialty Start Date End Date Patricio Palmer M.D. PCP - General Family Medicine 12/18/[address] [place] [phone] documented as of this encounter
--- OUTSIDE RECORDS SUMMARY | 2022-02-22 12:35 | XMS_ITS | Encounter Summary ---
:1985 Author Organization [facility] Address [address] [place] [address] Care Team Providers Name Role Phone Patricio Palmer M.D. Primary Care Provider Encounter Details Date Type Department Care Team Description 09/25/2018 Orders Only Department of Wallace, Mirian Garcia, Nicotin e Dependence Cigarettes With Withdrawal (Primary Dx); Nicotine Dependence, Ph.D., C.T. T.S. Counseling Smoking Cessation [address] [place] [phone] [place], [place] [phone] (Wo rk) [phone] Social History Tobacco Use Types Packs/Day Years [...] or relatives? How often do you attend anabaptist or 1 to 4 times per year 05/18 taoist services? 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 PCP - General Family Medicine 12/18/[address] [place] [phone] documented as of this encounter
--- OUTSIDE RECORDS SUMMARY | 2022-02-22 12:35 | XMS_ITS | Encounter Summary ---
:1985 Author Organization [facility] Address [address] [place] [address] Care Team Providers Name Role Phone Patricio Palmer M.D. Primary Care Provider Reason for Visit Reason Comments Follow-up hospital follow -up for seiz ures Other check sores on head Encounter Details Date Type Department Care Team Description 10/04/2018 Office Visit Department of Family Suad Avendano A Lo luzm aria Related Medicine, Nupur Olguin APRNNFlexPFlex, Focal Part ial Clinic, in Radha Olguin.S.N. Idiopathic Epilepsy [address] And Epileptic [address] [place] [address] [place] [phone] Seizures Of Localized [phone] Onset Intractab le (Work) Without Status Epileptic us ([facility]) (Primary Dx) Social History Tobacco Use Types [...] 1 to 4 times per year 05/18 presybeterian services? Do you belong to any clubs [...] or slept in a fpc (including now)? 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 - 10/04/2018 10:30 AM CDT SUBJECTIVE CHIEF COMPLAINT Follow-up (hospital follow -up for seizures) and Other (check sores on head) HISTORY OF PRESENT ILLNESS Luisa Coulter is a 33 y.o. 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 Patient was hospitalized at [facility] from 09/24/2018-10/01/2018. Post hospital communication with the patient occurred on 10/02/2018 at 8:45 a.m. Patient was admitted to [facility] for neurological procedure of which stereotactic implementation bilateral SEEG, depth electrodes, intraoperative EEG on 09/24/2018, and remove intracranialelectrodes, SEEG removal on 09/30/2018. Chart review reveals intraoperative as well as immediate postoperative course was uncomplicated and patient was transferred from the PACU to neurosurgical ICU in which Urology monitored and stimulated for the duration of her ICU course. After testing was complete, the SEEGs were removed and she was transferred to the medical floor. Patient was able to ambulate and tolerate diet at the time of discharge. Pain management completed with oral medications, no incision site bleeding or drainage occurred and patient was discharged to home with family support. Today, patient offers no acute concerns, does question availability and how to obtain a seizure notification device of a watch, [employer] - Dein Lernprogramm im Lebena. Patient offers intermittent continued seizures at baseline, denies fever, chills, chest pain, shortness of breath, or mental status changes. MEDICATIONS Current Outpatient Prescriptions on File Prior to Visit Medication Sig Dispense Refill ??? ACETAMINOPHEN ORAL Take 500 mg by mouth as needed. Takes 4 tablet (2,000mg total) by mouth as needed for headaches ??? lacosamide (VIMPAT) 100 mg tablet Take 3 tablets (300 mg total) by mouth as directed. 1 tab am, 2 tabs pm 90 tablet 5 ??? lamoTRIgine (LaMICtal) 100 mg tablet Take 2 tablets (200 mg total) by mouth 2 (two) times a day.120 tablet 5 No current facility-administered medications on file prior to visit. ALLERGIES Allergies Allergen Reactions ??? Hydrocodone-Acetaminophen Hives and Rash Swelling of feet, hands, face, some shortness of breath ??? Tramadol Hives and Rash REVIEW OF SYSTEMS Constitutional: Positive for fatigue. Negative for fever. Neurological: Positive for seizures, loss of consciousness and headaches. The following systems were negative: Skin, Eyes, ENT, CV, Respiratory, GI, , Hematologic, Musculoskeletal, Psych PAST MEDICAL HISTORY Past Medical History: Diagnosis Date ??? Conversion Disorder With Seizures Or Convulsions ??? Leak Amniotic Fluid ??? 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 Seizure (HCC) ??? Stone Kidney PAST SURGICAL HISTORY Past Surgical History: Procedure Laterality [...] ROMB OR ??? TONSILLECTOMY 2004 estimated year SOCIAL HISTORY Social History Social History ??? Marital status: [...] ??? None Social History Narrative ??? None FAMILY HISTORY Family History Problem Relation Age of Onset ??? Seizures Mother ??? Alcohol abuse Mother ??? Seizures Brother ??? Alcohol abuse Brother OBJECTIVE VITAL SIGNS BP 115/65 (BP Location: Left arm, Patient Position: Sitting, Cuff Size: Regular) Pulse 88 Temp 36.3 ??C (Temporal) Resp 16 Ht 157.5 cm Wt 60.8 kg LMP 09/23/2018 (Exact Date) SpO2 99% BMI 24.51 kg/m?? PHYSICAL EXAM Constitutional: She is oriented to person, place, and time. She appears well- developed and well-nourished. No distress. HENT: Head: Normocephalic and atraumatic. Right Ear: External ear normal. Left Ear: External ear normal. Nose: Nose normal. Mouth/Throat: Oropharynx is clear and moist. No oropharyngeal exudate. Eyes: Conjunctivae and EOM are normal. Pupils are equal, round, and reactive to light. Neck: Normal range of motion. Neck supple. Cardiovascular: Normal rate, regular rhythm, normal heart sounds and intact distal pulses. She exhibits no edema. Exam reveals no gallop and no friction rub. No murmur heard. Pulmonary/Chest: Effort normal and breath sounds normal. No respiratory distress. She has no wheezes. She has no rales. She exhibits no tenderness. Musculoskeletal: Normal range of motion. Neurological: She is alert and oriented to person, place, and time. No cranial nerve deficit. Coordination normal. Skin: Skin is warm and dry. Capillary refill takes less than 2 seconds. She is not diaphoretic. No erythema. Surgical incision site on patient's scalp are clean, dry, and intact. No bleeding, drainage, or localized areas of infection are present. Psychiatric: She has a normal mood and affect. Her behavior is normal. Judgment and thought content normal. DIAGNOSTICS None. ASSESSMENT / PLAN #1 Localization Related Focal Partial Idiopathic Epilepsy And Epileptic Syndromes With Seizures Of Localized Onset Intractable Without Status Epilepticus (HCC) Patient is stable, alert and oriented x3, cranial nerves are grossly intact, strength and sensation grossly intact in all 4 extremities. Vital signs stable. Patient rates pain score 0/10 at today's visit. Patient and significant other do have several questions regarding obtaining a seizure notification device watch, Empatica, explaining that they have received approval although financially it is difficult to pay the required amount for this to be sent today arm, as they tell me the year is pharmacy to obtain this device is [place] states away which is not possible due to limited financial resourcesand required travel. I discussed with patient that I am not familiar with this device, although I would send information to patient's neurosurgical team with recommendations and assistance and obtaining device if recommended. Patient and significant other verbalized understanding. Discussed with patient to follow up with Neurosurgery team as directed. Patient agrees with plan, verbalizes understanding of plan, and is receptive to plan. Patient provided verbal and written education and all questions were answered. Patient has no further questions or concerns. Patient will follow up as needed or at the next scheduled return visit. Patient will call clinic if there are any further questions prior to next scheduled return visit. Scarlett Avendano APRN, PHONE TECHNICIAN documented in this encounter Plan of Treatment Not on filedocumented as of this encounter Visit Diagnoses Diagnosis Localization Related Focal Partial Idiop athic Epilepsy And Epileptic Syndromes With Seizures Of Localized Onset Intractable Without Status Epilepticus (HCC) - Primary documented in this encounter Care Teams Drawer In Relationship Specialty Start Date End Date Patricio Palmer M.D. PCP - General Family Medicine 12/18/[address] [place] [phone] documented as of this encounter
--- OUTSIDE RECORDS SUMMARY | 2022-02-22 12:35 | XMS_ITS | Encounter Summary ---
:1984 Author Organization [facility] Address [address] [place] [address] Care Team Providers Name Role Phone Patricio Palmer M.D. Primary Care Provider Encounter Details Date Type Department Care Team Description 09/25/2018 Orders Only Division of [facility] Viviana Tomas M.D. Internal Medicine, [address] [place] [address], in [place], [place] [phone] [address] [facility] [place] [phone] Social History Tobacco Use Types Packs/Day Years [...] 1 to 4 times per year 05/18 nondenominational services? 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 PCP - General Family Medicine 12/18/[address] [place] [phone] documented as of this encounter
--- OUTSIDE RECORDS SUMMARY | 2022-02-22 12:35 | XMS_ITS | Encounter Summary ---
:1985 Author Organization [facility] Address [address] [place] [address] Care Team Providers Name Role Phone Patricio Palmer M.D. 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 - 10/05/2018 5:35 PM CDT Phone call: This patient underwent sEEG implantation on 09/24/18, removal on 09/30/18 and was dismissed with Oxycodone. She is taking about 3 per day and is calling asking for a refill. At this hour, I cannot facilitate this for her though I did send a note to her primary, explaining the situation. She is mainly complaining of global headache that is worse with certain activities. She is also taking Tylenol. We would not expect a great deal of pain lasting a long time but a renewal of 15 tablets would not be unreasonable. I don't know if this will happen this weekend though and I told her this. I will see how she's doing on Monday and where things are at. By that time, I'd be inclined to just have her stay withover the counter medications. She understands. documented in this encounter Plan of Treatment Not on filedocumented as of this encounter Visit Diagnoses Not on filedocumented in this encounter Care Teams Staff Nurse Anesthetist Relationship Specialty Start Date End Date Patricio Pamler M.D. PCP - General Family Medicine 12/18/[address] [place] [phone] documented as of this encounter
--- OUTSIDE RECORDS SUMMARY | 2022-02-22 12:35 | XMS_ITS | Encounter Summary ---
:1985 Author Organization [facility] Address [address] [place] [address] Care Team Providers Name Role Phone Patricio Palmer M.D. Primary Care Provider Reason for Visit Reason Onset Date Comments Med Refill 10/08/2018 Encounter Details Date Type Department Care Team Description 10/08/2018 Clinical Communication Department of Zan Wise M.D. Med Refill Neurologic Surgery in [address] [place] [address] [place] [phone] [place], [place] [phone] (Work) [phone] Social History Tobacco Use Types Packs/Day Years [...] place to sleep or slept in a mcc (including now)? 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 Telephone Encounter - Gabi Katz - 10/15/2018 8:33 AM CDT Patient called asking for a refill on her oxycodone, she said she has about 2 days worth left. She is also wondering how long she will continue to have a pounding headache on the left side of her head. Please return her call to discuss. Thank you! Telephone Encounter - Gabi Katz - 10/10/2018 8:20 AM CDT Louisa Benitez Mailed a script for Oxycodone to patient's home address via [employer] (tracking # [id number]). Telephone Encounter - Gabi Katz - 10/08/2018 10:25 AM CDT Patient called back and Chidi relayed this information to the patient. Telephone Encounter - Yuko Thomason R.N. - 10/08/2018 9:47 AM CDT Will fedex a script out today. Can you let her know? Thanks! Telephone Encounter - Gabi Katz - 10/08/2018 9:05 AM CDT Patient calling back wondering if we would be willing to refill her Oxycodone. She said the pain hasn't worsened but it also hasn't improved. Please return her call to discuss. Thank you. documented in this encounter Plan of Treatment Not on filedocumented as of this encounter Visit Diagnoses Not on filedocumented in this encounter Care Teams Pantry Cook Relationship Specialty Start Date End Date Patricio Palmer M.D. PCP - General Family Medicine 12/18/[address] [place] [phone] documented as of this encounter
--- OUTSIDE RECORDS SUMMARY | 2022-02-22 12:35 | XMS_ITS | Encounter Summary ---
:1985 Author Organization [facility] Address [address] [place] [address] Care Team Providers Name Role Phone Patricio Palmer M.D. 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 [address] [facility] Fidelia Gill, LINING PARTS SEWER, SHOE REPAIR COBBLER, DNAP [address] [place] [address] [place] [address] Anesthesia Record Procedure Summary Procedure Name Responsible Anesthesia Start Anesthesia Stop Anesthesiologist Time Time Application Abhishek Gaspar M.D. 09/24/18 0817 9 1340 Headframe, CTV to follow, Stereotactic implantation bilateral SEEG, depth electrodes, intraoperative EEG, post op CT head, electrode protocol to follow. (Left) Events Date Time Event Comment 09/24/2018 0816 In Room 0817 An Start Machine/Equipmen t Checked Infection Precautions Foll owed Procedure/Site Verified NPO Sta tus Verified Supine Standard ASA Mon itors Applied 0823 An Induction 0828 An Intubation 0829 Turnover to Proceduralist 0844 Asia On Head frame 0844 Proc Start [address] 1242 Proc Fin 1300 Turnover to ANE Staff 1301 Airway Removal Criteria Met 1301 Extubation/Airway Removed 1308 an stop data 1314 Out of Room 1314 Monitored Transport Patient take n to CT scan post operatively. Vit al signs remained stable. HR 95-110, O2 sa ts 92-94% on RA, MAPs between 70 and 8 0. Patient transferred to [facility] post CT sca n, report given to RN. 1340 An End I completed my h andoff to the receiving staff during [facility] we 1. Identified the patient 2. Ident ified the responsible provider 3. Revi ewed the pertinent medical history 4. Discussed the surgical course 5. Review ed intra-op anesthesia management and i ssues during anesthesia 6. Set expectati ons for post-procedure period 7. Allowe d opportunity for questions and ac knowledgement of understanding. Name Total lidocaine 2% (mg) injection 100 mg propofol 10 mg/mL 200 mg ondansetron 4 mg/2 mL injection 4 mg phenylephrine 100 mcg/mL injection 500 mcg ePHEDrine PF 5 mg/mL syringe injection 15 mg sugammadex 100 mg/mL injection 120 mg vecuronium 10 mg injection 22 mg propofol 10 mg/mL infusion 149.24 mg fentaNYL injection 25 mcg (SUBLIMAZE) 200 mcg remifentanil 20 mcg/mL in NaCl 0.9% 250 mL infusion (U LTIVA) 2.48 mg levETIRAcetam 1,000 mg in NaCl 0.9% IVPB (KEPPRA) 1,00 0 mg ceFAZolin injection 2,000 mg (ANCEF) 2 g phenylephrine 80 mcg/mL in NaCl 0.9% 250 mL infusion 0 .83 mg dexamethasone injection 4 mg (DECADRON) 4 mg Lactated Ringers Free Drip 1,000 mL lactated ringers free drip 1,000 mL Agents No agents on file. Blood No blood administrations on file. Lines, Drains, and Airways Type Details Placement Removal (RETIRED) Wound 03/06/18; 0015; No; 03/06/18 0015 by 01/21/20 00 00 by Laceration; Head White, Suad F, Hargarten, St even (Comment) (yazdanism and B.S.N., R.N. D, R.N. lip); Right; 01/21/20 Peripheral IV Placement Date: 09/24/18 07 by 09/30/18 1806 b y 09/24/18; Placement Berkley Clifford Katelyn Time: 708; Catheter E, R.N. Size: 20 G; Orientation: Left; Location: Hand; Site Prep: Chlorhexidine (Preferred); Technique: Anatomical landmarks; Inserted by: DT; Insertion Attempts: 1; Removal Date: 09/30/18; Removal Time: 1805; Removal Reason: No longer in place Indwelling Urinary Placement Date: 09/24/18 08 by 09/26/18 230 0 by Catheter 09/24/18; Placement Steve Valdes Recto, Ian Rodel, Time: 824; Inserted by: Aislinn Zambrano R.N.; Type: Non-latex; Size: 16 Fr.; Balloon Size: 10 mL; Urine Returned: Yes; Removal Date: 09/26/18; Removal Time: 2299; Removal Reason: Per patient/family request (service notified) ETT Placement Date: 09/24/18 08 by 09/24/18 1304 b y 09/24/18; Placement Fidelia Gill Dyer, Krist in M, Time: 827 (created via LINING PARTS SEWER, SUNSHINE, DNAP Aislinn DUEÑAS, DNAP procedure documentation); Mask Ventilation: Easy mask; Type: Standard ETT; Single Lumen Tube Size: 7 mm; Cuffed: Yes; Blade Size: Riojas 2; Location: Oral; Removal Date: 09/24/18; Removal Time: 130 Peripheral IV Placement Date: 09/24/18 08 by 10/03/19 0000 b y 09/24/18; Placement Fidelia Gill Barton, Tar yn E, Time: 829; Catheter LINING PARTS SEWER, SHOE REPAIR COBBLER, DNAP R.N. Size: 18 G; Orientation: Right; Location: Forearm; Removal Date: 10/03/19; Removal Reason: No longer in place Arterial Line Placement Date: 09/24/18932 by 09/25/18 1805 b y 09/24/18; Placemnt Time: Fidelia Gill O'Conn ell Flaquita 932 (created via LINING PARTS SEWER, SHOE REPAIR COBBLER, DNAP L, R.N. procedure documentation); Orientation: Left; Location: Radial; Site Prep: Chlorhexidine (Preferred); Technique: Anatomical landmarks; Insertion Attempts: 1; Securement: Securement dressing; Removal Date: 09/25/18; Removal Time: 180; Removal Reason: Per order Intentionally Packed 09/24/18; 1231; Packed 09/24/18 1231 by [id number] by Surgical Item(s) in wound; Head; Steve Valdes Lamphere, Nanc y Bilateral R.N. R, R.N. documented in this encounter Social History Tobacco Use Types Packs/Day Years [...] or relatives? How often do you attend confucianism or 1 to 4 times per year 05/18 synagogue services? Do you belong to any clubs or No 06/09/2021 organizations such as confucianism groups, unions, fraternal or athletic groups, or [...] minutes do you engage in exercise at is 30 min 06/09/2021 level? Stress Answer [...] or slept in a alf (including now)? 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 Responsible Provider: Abhishek Hanson M.D. Anesthesia Type: general ASA Status: 2 Anesthesia Type: general Last vitals Vitals Value Taken Time BP 131/82 09/24/2018 1:35 PM Temp 09/24/2018 1:44 PM Pulse 108 09/24/2018 1:43 PM Resp 21 09/24/2018 1:43 PM SpO2 95 % 09/24/2018 1:43 PM Vitals shown include unvalidated device data. Anesthesia Post Evaluation Patient Disposition: monitored unit, expectation for recovery time deferred to receiving unit Cardiovascular status: hemodynamics (HR & BP) acceptable Respiratory status: patent airway with spontaneous effort Temperature: normothermic Oxygen requirements: room air Level of consciousness: awake Pain score: pain adequately controlled and/or at baseline Post Op nausea/vomiting: none Hydration status: euvolemic Anesthesia Procedure Notes - Fidelia Gill APRN, CRNA, DNAP - 09/24/2018 9:33 AM CDTAssociated Order(s): SUSANNA GARCIA INVASIVE CATHETER Invasive Catheter Date/Time: 09/24/2018 9:33 AM Performed by: FIDELIA GILL Authorized by: ABHISHEK HANSON Location: OR Pre-procedure prep: Appropriate hand hygiene, gown, cap, mask, protective eyewear, sterile gloves, skin preparation, sterile drape, and strict aseptic technique were utilized as applicable for the procedure.: yes Skin preparation: chlorhexidine Sedation/Anesthesia (see MAR for exact dosages): Anesthesia method: none Procedure details: Line type: arterial Laterality: left Location: radial Location details: new site Age group: adult Catheter diameter: 20 Ga Technique: palpation Monitored: yes Number of attempts: 1 Post-procedure details: Procedure completed successfully: yes Line secured: secured with sutureless device Chlorhexidine disc around insertion site and under catheter with slight turn: yes Complications - arterial: none Anesthesia Procedure Notes - Fidelia Gill APRN, CRNA, DNAP - 09/24/2018 8:40 AM CDTAssociated Order(s): AIRWAY MANAGEMENT Airway Date/Time: 09/24/2018 8:28 AM Patient location during procedure: OR / Procedure Area Performed by: FIDELIA GILL Authorized by: ABHISHEK HANSON Pre procedure details Pre evaluation for airway management: procedure Urgency: elective Preop assessment of probable difficulty: no difficulty anticipated Sedation level: anesthetized Preoxygenation: bag valve mask Procedure details Mask difficulty assessment: easy mask Final airway type: direct laryngoscopy, intubation Laryngeal Manipulation: no Final airway difficulty of direct laryngoscopy (DL): 0-easy Final best view of glottic structures - Cormack/Lehane Score: grade 1 ETT location: oral Adult blade type: Riojas 2 Adult tube size: 7 Adult ETT distance at teeth/gum: 21 Oral tube type: standard ETT Cuffed: yes Airway confirmation: bilateral breath sounds, positive ETCO2 and bilateral chest rise Other previous techniques attempted: none Post procedure details Procedure outcome: successful Airway event: no complications Anesthesia Preprocedure Evaluation - Abhishek Hanson M.D. - 09/24/2018 7:47 AM CDT Anesthesia Pre-Evaluation Pertinent components of the patient's history including current problem list, medical history, surgical history, family history, social history, medications and allergies were reviewed and updated as appropriate. The patient was examined and the Pre-op diagnosis, planned procedure, and H&P were reviewed and remain unchanged. 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) OBJECTIVE PHYSICAL EXAMINATION Airway (HEENT) Mallampati: I TM Distance: >3 FB Neck ROM: Full Mouth Opening: >3 cm Cardiovascular Rhythm: Regular Rate: Normal Cardiovascular Assessment: cardiovascular normal Functional Capacity: >4 METS Pulmonary Pulmonary Assessment: Clear Neurological Normal Dental Normal General / Constitutional Normal ASSESSMENT / PLAN ANESTHESIA PLAN ASA: 2 Anesthesia Plan: general Patient seen and allergies reviewed; anesthesia plan and risks discussed directly with patient / legal guardian, or through an yard conductor; patient evaluated and approved for anesthesia / sedation. Use of blood products discussed with patient who consented to blood products. Emergency Exception: Emergent transfer to anesthesia care documented in this encounter Miscellaneous Notes Addendum Note - Fidelia Gill APRN, CRNA, DNAP - 09/24/2018 2:05 PM CDT Addendum created 09/24/18 1405 by Fidelia Gill APRN, CRNA, DNAP Anesthesia Event edited, Anesthesia Intra Meds edited documented in this encounter Plan of Treatment Not on filedocumented as of this encounter Procedures Procedure Name Priority Date/Time Associated Comments Diagnosis LDA ANE ARTERIAL LINE Routine 09/24/2018 9:33 AM Results for this INSERTION CDT procedure are i n the results section. PA ARTL CATH/CNULA Routine 09/24/2018 9:33 AM Res ults for this MONITOR PERC CDT procedure are i n the results section. LDA ANE ENDOTRACHEAL Routine 09/24/2018 8:40 AM R esults for this AIRWAY CDT procedure are i n the results section. documented in this encounter Results PA ARTL CATH/CNULA MONITOR PERC, LDA ANE ARTERIAL LINE INSERTION (09/24/2018 9:33 AM CDT) Narrative Fidelia Gill, SUNSHINE DUEÑAS DNAP - 09/14 9:33 AM CDT Fidelia Gill, SUNSHINE DUEÑAS, DNAVicenta ? 09/24/2018 ??9:34 AM Invasive Catheter Date/Time: 09/24/2018 9:33 AM Performed by: FIDELIA GILL Authorized by: ABHISHEK HANSON Location: OR Pre-procedure prep: ??Appropriate hand hygiene, gown, cap, mask, protective eyewear, sterile gloves, skin preparation, sterile drape, and strict aseptic technique were utilized as applicable for the procedure .: yes ?Skin preparation: chlorhexidine ?? Sedation/Anesthesia (see MAR for exact d osages): ??Anesthesia method: none Procedure details: ??Line type: arterial ?Laterality: left ??Location: radial ??Location details: new site ?Age group: adult ??Catheter diameter: 20 Ga ??Technique: palpation ?Monitored: yes ?Number of attempts: 1 Post-procedure details: ??Procedure completed successfully: yes ?Line secured: secured with sutureless device ??Chlorhexidine disc around insertion s ite and under catheter with slight turn: yes ?Complications - arterial: none Procedure Note Fidelia Gill APRN, CRNA, DNAVicenta - 09/14 9:33 AM CDT Invasive Catheter Date/Time: 09/24/2018 9:33 AM Performed by: FIDELIA GILL Authorized by: ABHISHEK HANSON Location: OR Pre-procedure prep: Appropriate hand hygiene, gown, cap, ma sk, protective eyewear, sterile gloves, skin preparation, sterile drape, and strict aseptic technique were utilized as applicable for the procedure.: yes Skin preparation: chlorhexidine Sedation/Anesthesia (see MAR for exact d osages): Anesthesia method: none Procedure details: Line type: arterial Laterality: left Location: radial Location details: new site Age group: adult Catheter diameter: 20 Ga Technique: palpation Monitored: yes Number of attempts: 1 Post-procedure details: Procedure completed successfully: yes Line secured: secured with sutureless d evice Chlorhexidine disc around insertion sit e and under catheter with slight turn: yes Complications - arterial: none Abhishek Hanson M.D. PROCEDURE/MINOR SURGICAL ORD ERABLES LDA ANE ENDOTRACHEAL AIRWAY (09/24/2018 8:40 AM CDT) Narrative Fidelia Gill APRN, CRNA, DNAP - 09/14 8:40 AM CDT Fidelia Gill APRN, CRNA, DNAP ? 09/24/2018 ??8:41 AM Airway Date/Time: 09/24/2018 8:28 AM Patient location during procedure: OR / Procedure Area Performed by: FIDELIA GILL Authorized by: ABHISHEK HANSON Pre procedure details ?? Pre evaluation for airway management : procedure ?? Urgency: elective ?? Preop assessment of probable difficu lty: no difficulty anticipated ?? Sedation level: anesthetized ?? Preoxygenation: bag valve mask Procedure details ??Mask difficulty assessment: easy mask ?? Final airway type: direct laryngosco py, intubation Laryngeal Manipulation: no ? Final airway difficulty of direct la ryngoscopy (DL): 0-easy ?? Final best view of glottic structure s - Cormack/Lehane Score: grade 1 ?? ETT location: oral ?? Adult blade type: Riojas 2 ?? Adult tube size: 7 ?? Adult ETT distance at teeth/gum: 21 ?? Oral tube type: standard ETT ?? Cuffed: yes ?? Airway confirmation: bilateral breat h sounds, positive ETCO2 and bilateral chest rise ?? Other previous techniques attempted: none Post procedure details ?? Procedure outcome: successful ? Airway event: no complications Procedure Note Fidelia Gill APRN, CRNA, DNAP - 09/14 8:40 AM CDT Airway Date/Time: 09/24/2018 8:28 AM Patient location during procedure: OR / Procedure Area Performed by: FIDELIA GILL Authorized by: ABHISHEK HANSON Pre procedure details Pre evaluation for airway management: p rocedure Urgency: elective Preop assessment of probable difficulty : no difficulty anticipated Sedation level: anesthetized Preoxygenation: bag valve mask Procedure details Mask difficulty assessment: easy mask Final airway type: direct laryngoscopy, intubation Laryngeal Manipulation: no Final airway difficulty of direct laryn goscopy (DL): 0-easy Final best view of glottic structures - Cormack/Lehane Score: grade 1 ETT location: oral Adult blade type: Riojas 2 Adult tube size: 7 Adult ETT distance at teeth/gum: 21 Oral tube type: standard ETT Cuffed: yes Airway confirmation: bilateral breath s ounds, positive ETCO2 and bilateral chest rise Other previous techniques attempted: no ne Post procedure details Procedure outcome: successful Airway event: no complications Abhishek Hanson M.D. ANESTHESIA ORDERABLES documented in this encounter Visit Diagnoses Not on filedocumented in this encounter Administered Medications Inactive Administered Medications - up to 3 most recent administrations Medication Order MAR Action Action Date Dose Rate Site ceFAZolin injection 2,000 mg Given 09/24/2018 10:28 AM CDT 2 g (ANCEF) 2,000 mg (rounded from 1,435 mg = 25 mg/kg ? 57.4 kg), intravenous, Once, On Mon09/24/18 at 0730, For 1 dose, Intra-Op, Preoperatively within 1 hour prior to surgical incision [place] IV push over 3 minutes. Add 5 mL NS to 1 gram vial for a final concentration of 200 mg/mL., Drug Monitoring Program: Pharmacist to adjust medication dosing based on indication and drug clearance factors., Indications: Prophylaxis, surgical dexamethasone injection 4 mg (DECADRON) Given 09/24/2018 12:13 PM CDT 4 mg 4 mg, intravenous, Once as needed, nausea, vomiting, Starting on Mon09/24/18 at 0747, For 1 dose, PACU (only), Give only if NOT given during the pre or intraoperative period. If ondansetron ordered, give dexamethasone with first dose of ondansetron. ePHEDrine (PF) injection Given 09/24/2018 10:17 AM CDT 10 mg intravenous, As needed, Starting on Mon09/24/18 at 0959, Anesthesia Intra-op Given 09/24/2018 9:59 AM CDT 5 mg fentaNYL injection 25 mcg (SUBLIMAZE) Given 09/24/2018 1:20 PM CDT 50 mcg 25 mcg, intravenous, Every 2 min PRN, moderate pain or score 4-6 of 10, severe pain or score 7-10 of 10, Starting on Mon09/24/18 at 0747, PACU (only), Up to maximum total dose of 200 mcg Given 09/24/2018 1:08 PM CDT 50 mcg Given 09/24/2018 8:23 AM CDT 100 mcg lactated ringers New Bag 09/24/2018 9:40 AM CDT intravenous, Continuous Infusion: Per Instructions PRN, Starting on Mon09/24/18 at 0817, Anesthesia Intra-op New Bag 09/24/2018 8:17 AM CDT lactated ringers New Bag 09/24/2018 1:10 PM CDT intravenous, Continuous Infusion: Per Instructions PRN, Starting on Mon09/24/18 at 0930, Anesthesia Intra-op New Bag 09/24/2018 9:30 AM CDT levETIRAcetam 1,000 mg in NaCl 0.9% IVPB New Bag 019 10:15 AM CDT 1,000 mg (KEPPRA) 1,000 mg, intravenous, at 440 mL/hr, Administer over 15 Minutes, Once, On Mon09/24/18 at 0730, For 1 dose, Intra-Op, In OR Do NOT refrigerate. lidocaine (PF) (cardiac) injection Given 09/24/2018 12:56 PM CDT 60 mg intravenous, As needed, Starting on Mon09/24/18 at 0823, Anesthesia Intra-op Given 09/24/2018 8:23 AM CDT 40 mg ondansetron (PF) injection (ZOFRAN) Given 09/24/2018 12:44 PM CDT 4 mg intravenous, As needed, nausea, vomiting, Starting on Mon09/24/18 at 1244, Anesthesia Intra-op phenylephrine 80 mcg/mL Rate/Dose Change 09/24/2018 11:45 0.2 mcg/k g/min 8.61 mL/hr in NaCl 0.9% 250 mL AM CDT infusion 0.1-1 mcg/kg/min ? 57.4 kg Dosing weight (4.305-43.05 mL/hr, rounded to 4.31-43.05 mL/hr), intravenous, Continuous, Starting on Mon09/24/18 at 0700, Intra-Op, Premix ba mg in 250 mL, Titrate: Per Provider New Bag 09/24/2018 11:39 AM CDT 0.3 mcg/kg/min 12.9 mL/hr phenylephrine injection Given 09/24/2018 11:28 AM CDT 100 mcg intravenous, As needed, Starting on Mon09/24/18 at 1000, Anesthesia Intra-op Given 09/24/2018 11:23 AM CDT 100 mcg Given 09/24/2018 11:13 AM CDT 100 mcg propofol 10 mg/mL infusion Rate/Dose 09/24/2018 9:05 150 mcg/kg/min 51.7 mL/hr (DIPRIVAN) Change AM CDT intravenous, Continuous Infusion: Per Instructions PRN, Starting on Mon09/24/18 at 0854, Anesthesia Intra-op New Bag 09/24/2018 8:54 AM CDT 100 mcg/kg/min 34.4 mL/hr propofol injection (DIPRIVAN) Given 09/24/2018 8:55 AM CDT 30 mg intravenous, As needed, Starting on Mon09/24/18 at 0824, Anesthesia Intra-op Given 09/24/2018 8:27 AM CDT 20 mg Given 09/24/2018 8:24 AM CDT 150 mg remifentanil 20 mcg/mL in New Bag 09/24/2018 9:53 AM 0.25 mcg/kg/m in 43.1 mL/hr NaCl 0.9% 250 mL infusion CDT (ULTIVA) Continuous Infusion: Per Instructions PRN, Starting on Mon09/24/18 at 0953, Anesthesia Intra-op sugammadex injection (BRIDION) Given 09/24/2018 12:56 PM CDT 120 mg As needed, Starting on Mon09/24/18 at 1256, Anesthesia Intra-op vecuronium injection (NORCURON) Given 09/24/2018 12:28 PM CDT 2 mg As needed, Starting on Mon09/24/18 at 0824, Anesthesia Intra-op Given 09/24/2018 11:50 AM CDT 3 mg Given 09/24/2018 11:13 AM CDT 2 mg documented in this encounter Care Teams Color Printer Operator Relationship Specialty Start Date End Date Patricio Palmer M.D. PCP - General Family Medicine 12/18/[address] [place], [place] [address] [id number] documented as of this encounter
--- OUTSIDE RECORDS SUMMARY | 2022-02-22 12:35 | XMS_ITS | Encounter Summary ---
:1985 Author Organization [facility] Address [address] [place] [address] Care Team Providers Name Role Phone Patricio Palmer M.D. 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) Procedures SD IMPL STRTCTC ELECTRODES CEREB Application Le[place]ell Headframe, CTV to follow, Stereotactic implantation of Left SEEG/depth electrodes, intraoperative EEG; post op CT head - electrode protocol to follow Referral ID Status Reason Start Date Expiration Date Visits Requ ested Visits Authorized [id number] 1 1 Encounter Details Date Type Department Care Team Description 09/24/2018 - Hospital Encounter [facility] Zan Wise, Epilepsy And Recurrent Seizures NOS (Primary Dx); 10/01/2018 [facility] 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); [facility], [place] [address] [address] [facility] Localization Related Focal Partial Idiop athic Epilepsy And Epileptic Syndromes With Seizures Of Localized Onset Intractable Without Status Epilepticus (HCC); [place], [place] Nicotine De pendence Cigarettes With Withdrawal Ninth Floor [id number] [phone] [place], [place] (Work) [phone] Social History Tobacco Use Types Packs/Day Years [...] 06/09/2021 organizations such as baptism groups, unions, fraternal or athletic groups, or [...] pay for the very basics like Not alisa dumont hard 06/09/2021 food, housing, medical care, and [...] at Date Recorded Female 06/09/2021 2:09 PM 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 - 10/01/2018 7:26 AM CDT DISCHARGE SUMMARY BRIEF OVERVIEW Discharge Provider: Zan Wise M.D. Primary Care Providers: Patricio Palmer M.D. 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 * Operative Procedures: Scheduled (Abraham), Completed (Comp) or Canceled (Can) Case IDs Date Procedure Surgeon Location Status [id number] 09/24/18 Application Leksell Headframe, CTV to follow, Stereotactic implantation bilateral SEEG, depth electrodes, intraoperative EEG, post op CT head, electrode protocol to follow. HANS Wise M.D. [facility] OR Comp [id number] 09/30/18 REMOVE INTRACRANIAL ELECTRODES; SEEG lead removal Zan Wise M.D. [facility] OR Comp DISCHARGE DISPOSITION Home or Self Care [1] ACTIVE ISSUES REQUIRING FOLLOW UP None OUTPATIENT FOLLOW UP Future Appointments Date Time Provider Department Center 10/10/2018 11:00 AM Mirian Diaz, Ph.D., C.T.T.S. 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 Wise for the procedure listed above. The intraoperative as well as the immediate postoperative course were uncomplicated. The patient was transferred from the PACU to the Neurosurgical ICU. Neurology monitored and stimulated for the duration of her ICU course. After testing was complete, the SEEGs were removed and she was transferred to the floor. She was ambulating and tolerating an oral diet at the time of dismissal. She had optimal pain control on oral medications. Her incision remained clean and intact. She then met criteria for dismissal and was discharged home. CONSULTS ORDERED DURING THIS ADMISSION IP CONSULT TO INTERNAL MEDICINE NICOTINE DEPENDENCE IP CONSULT TO CARE MANAGEMENT CONDITION AT DISCHARGE stable Discharge instructions were provided to the patient and caregiver(s). documented in this encounter Medications at Time [...] directed. 1 tab am, 2 tabs pm nicotine (NICODERM CQ) Apply 35 mg (1 x 21 14 patch 5 09/1410/16/2018 14 mg/24 hr patch mg plus 1 x 14 mg patch) daily for 4-6 weeks, then taper in 7-14 mg steps every 2-6 weeks until off. nicotine (NICODERM CQ) Apply 35 mg (1 x 21 14 patch 5 09/1410/16/2018 21 mg/24 hr patch mg plus 1 x 14 mg patch) daily for 4-6 weeks, then taper in 7-14 mg steps every 2-6 weeks until off. nicotine (NICODERM CQ) 7 Apply 35 mg (1 x 21 14 patch 5 10/16/2018 mg/24 hr patch mg plus 1 x 14 mg patch) daily for 4-6 weeks, then taper in 7-14 mg steps every 2-6 weeks until off. nicotine (NICOTROL) 10 Inhale 1 puff as 42 each 3 019 10/16/2018 mg inhaler needed for smoking cessation. oxyCODONE (ROXICODONE) 5 Take 1 tablet (5 mg 20 tablet 0 10/08/2018 mg immediate release total) by mouth tabletIndications: Acute every 4 (four) hours Pain Exception as needed for moderate pain or score 4-6 of 10 Indication: Acute Pain Exception. sennosides-docusate Take 2 tablets by 20 tablet 1 9 10/16/2018 sodium (SENOKOT-S) mouth at bedtime as 8.6-50 mg per tablet needed for constipation. varenicline (CHANTIX Use as directed on 53 tablet 0 019 10/16/2018 WALTER) 0.5 mg (11)- 1 mg package (42) tablet instructions, try to quit smoking after 1 week. varenicline (CHANTIX) 1 Take 1 tablet (1 mg 60 tablet 11 06/201910/16/2018 mg tablet total) by mouth 2 (two) times a day. Take with full glass of water. documented as of this encounter Progress Notes Salas Odonnell M.D. - 10/01/2018 9:16 AM CDT CEE Moran is doing well this morning. There are plans to discharge today. VITAL SIGNS Blood pressure 118/75, pulse 80, temperature 36.9 ??C, temperature source Oral, resp. rate 16, height 157.5 cm, weight 65.3 kg, last menstrual period 09/23/2018, SpO2 100 %, not currently . EXAMINATION Neurologic: Awake and alert. Language is conversationally appropriate. Moves all extremities spontaneously and equally well. 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 However, she responded well to stimulation with a >90% reduction in interictal discharges. We will discuss her case at an upcoming surgical epilepsy conference, with the proposal being for dual stimulation with DBS and CSCS. We discussed the goals of stimulation in that we hope for significant seizure reduction, but that most people do not become totally seizurefree. We discussed some aspects of stimulation in terms of side effects, but I also shared that she would have the opportunity to discuss it more thoroughly with the stimulation clinic providers prior to any potential implantation. Discharge today on home medications unchanged. TIME: Total time spent was 15 minutes with more than 50% in counseling and coordination of care. Kody Kumar M.D., Ph.D. - 10/01/2018 7:26 AM CDT POD#6 SEEG placement SUBJECTIVE: - No issues overnight - SEEGs removed yesterday, reloaded with AEDs - Planned for discharge home today EXAM: AOX3, CN grossly intact, strength and sensation grossly intact in all four extremities PLAN: - Advance diet and activity, encourage ambulation - Pain control with oral agents - Hold DVT PPx - Removal of SEEGs today - Discharge home today Please page the [facility] Service at [phone] with questions. Gabi Clay, RFlexN. - 09/30/2018 3:54 PM CDT Patient Transfer Note Patient transferred to: [facility] Accompanied by: RN Report called? YES Nurse receiving report: DIXIE Merino Belongings sent with patient? YES Current vital signs: BP:111/81 Pulse: 71 Resp:16 Temp: 37.1 SpO2: 98% On room air Critical Care Service aware of current vital signs? YES No further questions or concerns. Prosper Alegria M.D. - 09/30/2018 9:29 AM CDT POD#5 SEEG placement SUBJECTIVE: - No issues overnight - No seizures overnight - Anti-epileptic meds started yesterday evening - Scheduled for SEEG lead removal today. EXAM: AOX3, CN grossly intact, strength and sensation grossly intact in all four extremities PLAN: - Advance diet and activity, encourage ambulation - Pain control with oral agents - Hold DVT PPx - Antibiotics while SEEG in palce - Removal of SEEGs today - NPO at midnight Please page the [facility] Service at [phone] with questions. Alvaro Adams M.D. - 09/30/2018 9:25 AM CDT I personally met with the patient in the neurological-neurosurgical ICU at [facility] on September 30, 2018. The electrical stimulation was discontinued yesterday afternoon. Patient has not had a definite clinical seizure since stimulation was terminated. There does appear to be an increase in epileptiform discharges. ?? The patient is awake and alert and appears to be tolerating the SEEG without adverse effects. The patient has not experienced a clinical seizure since 09/26 at 2 PM. ?? The patient will have explantation of the electrodes later today. We began her maintenance antiepileptic drug medication last evening: Lamictal and Vimpat. ?? I discussed my thoughts and findings with the patient and mother. I answered their questions the best my ability. ?? Total time 25 min INAT Erick Luong M.D., Ph.D. - 09/29/2018 1:44 PM CDT REASON FOR VISIT Luisa Coulter is a 33 y.o. 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 Wise's neurosurgical service and currently implanted with stereo EEG electrodes. The seizures are relatively poorlylocalized at onset, and trial stimulation for evaluation of her epileptiform brain physiology is underway.?? Referred by: Zan Wise M.D. ?? HISTORY OF PRESENT ILLNESS History Summary: Ms. Coulter is a 33-year-old right-handed woman with intractable seizures since age 18 months. She has convulsive seizures without an aura. These occur approximately weekly to monthly. Her MRI is unremarkable. Prolonged scalp monitoring showed seizures that were not able to localized but appeared to come from the left hemisphere. She is currently implanted with stereo EEG electrodes. We have recorded six seizures of left hemisphere (frontotemporal) onset, however the onset zone is not clearly localized. Interval History: Still no clinical or subclinical seizures. ?? ASSESSMENT AND PLAN: The seizure onset is best localized to LP12-16 (sup frontal) and GFF40-28 (left mid temporal gyrus) and with IEDs also including LY6-12 (mid frontal) and LE4-10 (mid frontal). We are stimulating an area between contacts LP, LY and LE, and the mid temporal gyrus. First 48 hr of her stereo EEG monitoring she had approximately 2 clinical seizures and for subclinical seizures. For the last 48 hr during trial stimulation she has not had any clinical or subclinical seizures. Her interictal discharges decreased by significant amount perhaps up to 90%. ?? Stimulation Details: 09/27/18, 1100: LAB: 10+ 12- 14- 16- LP: 10+ 12- 14- 16- LY 6- 8- 10- 12+ LE: 4+ 8- 10- PW300, 2Hz, 3V, approximately 1.5 kOhm Immediate 50-75% decrement of IEDs. No side effects reported. ?? 1499: Some breakthrough interictal epileptiform discharges noted. Increased amplitude from 3 volts to 4 volts. These disappeared relatively quickly with increased amplitude. 4739-9000: Stimulation was turned off. Interictal discharges started to reoccur after seconds with increasing severity after minutes. However even after 1.5 hr the interictal discharges were not as vigorous as prior to stimulation. ?? 1315: Still no seizures. Interictal discharges remain significantly reduced. We turned off stimulation. Antiseizure medications have not been restarted, but will be restarted at approximately 5:00 pm today. We disconnected the stimulating device from the EEG amplifiers. We also discussed DBS anterior thalamic stimulation for epilepsy with the patient. DBS Complex Neurostimulator Programmin minutes. Conclusion: The patient is a good candidate for bilateral anterior thalamic stimulation for treatment of her epilepsy. At this point, given the significant reduction in her discharges and no seizures during the trial stimulation, it is appealing and to also offer the implant of to electrodes, probably Medtronic [id number] DBS electrodes, targeting the left frontal region with 1 electrode (ie LP, LY, and LE) and the left temporal region with the other (LAB). ??This could be accomplished using the Presentain battery, which can drive 4 channels. We will continue to monitor her EEG, including observing the EEG for these next several hours off of medications. Her case will then be discussed at epilepsy surgical conference. ?? Prosper Alegria M.D. - 09/29/2018 11:19 AM CDT POD#4 SEEG placement SUBJECTIVE: - No issues overnight - No seizures overnight - Will discontinue stimulation later today and plan for removal of electrodes tomorrow morning. EXAM: AOX3, CN grossly intact, strength and sensation grossly intact in all four extremities PLAN: - Advance diet and activity, encourage ambulation - Pain control with oral agents - Hold DVT PPx - Antibiotics while SEEG in palce - Removal of SEEGs tomorrow morning - NPO at midnight Please page the [facility] Service at [phone] with questions. INAT Alvaro Adams M.D. - 09/29/2018 9:49 AM CDT I personally met with the patient in the neurological-neurosurgical ICU at [facility] on September 29, 2018. Patient currently is undergoing electrical brain stimulation. Shehas gone over 45 hr without a clinical seizure. She is tolerating stimulation well. The patient is awake and alert and appears to be tolerating both the SEEG and electrical stimulationwithout adverse effects. The patient has not reported any clinical seizure activity in the past 24 hr. I discussed the patient's intracranial monitoring with both Dr. Rajwinder Wise and Dr. Erick Luong. The plan of care is for the stimulation to be turned off later today. The patient will have explantation of the electrodes tomorrow morning. We will begin her maintenance antiepileptic drug medication this evening. This will consist of Lamictal and Vimpat. Patient will be given a loading dose of Vimpat. I discussed my thoughts and findings with the patient. I answered her questions the best my ability. Total time 25 min Erick Luong M.D., Ph.D. - 09/28/2018 7:11 PM CDT Brain stimulation was turned off at 4:30 p.m. and was restarted at 6:00 p.m. At 4V as previously outlined in Dr. Paul's note. The effect from stimulation on IEDs was noted to outlast the stimulationcessation for at least 45 minutes. INAT Kody Kumar M.D., Ph.D. - 09/28/2018 7:26 AM CDT POD#4 SEEG placement SUBJECTIVE: - No issues overnight - A few breakthrough interictal epileptiform discharges noted yesterday - Will continue to monitor await Neurology word they have completed their stim trials EXAM: AOX3, CN grossly intact, strength and sensation grossly intact in all four extremities PLAN: - Advance diet and activity, encourage ambulation - Pain control with oral agents - Hold DVT PPx - Antibiotics while SEEG in palce - Removal of SEEGs pending Neurology approval, possibly tomorrow Please page the [facility] Service at [phone] with questions. rick Rivera M.D., Ph.D. - 09/27/2018 5:39 PM CDT REASON FOR VISIT Luisa Coulter is a 33 y.o. female who is currently implanted with stereo EEG electrodes and trial stimulation for evaluation of her epileptiform brain physiology has been requested by Dr. Pickett. Referred by: Zan Wise M.D. HISTORY OF PRESENT ILLNESS History Summary: Ms. Coulter is a 33-year-old right-handed woman with intractable seizures since age 18 months. She has convulsive seizures without an aura. These occur approximately a monthly. There are no clear abnormalities on her MRI. Prolonged scalp monitoring showed seizures that were not able to localized but appeared to come from the left hemisphere. She is currently implanted with stereo EEG electrodes. Seizures suggest an onset in the left frontotemporal region, however the onset zone is not clearly localized. ASSESSMENT AND PLAN: Stereo EEG monitoring as captured seizures that have activity in the left frontal and temporal regions with seizure activity most vigorous at approximately at VSH81-21 (left mid temporal gyrus) and LP12-16 (sup frontal) with IEDs also including LY6-12 (mid frontal) and LE4-10 (mid frontal). We will plan to stimulate an area between contacts LP, LY and LE, as well as stimulating the mid temporal gyrus. Dipoles were constructed so that these 3 electrodes will interact appropriately. Stimulation Details: 09/27/18, 1100: LAB: 10+ 12- 14- 16 LP: 10+ 12- 14- 16- LY 6- 8- 10- 12+ LE: 4+ 8- 10- PW300, 2Hz, 3V, approximately 1.5 kOhm Immediate 50-75% decrement of IEDs. No side effects reported. 1500: Some breakthrough interictal epileptiform discharges noted. Increased amplitude from 3 volts to 4 volts. These disappeared relatively quickly with increased amplitude. DBS Complex Programming duration: 60 min Tacho Rajput M.D. - 09/27/2018 3:55 PM CDT Stim trial changed from 3 to 4 V. Pietro Pickett M.D. - 09/27/2018 11:10 AM CDT SUBJECTIVE Recorded additional seizure. Still experiencing pain left temporalis region. No additional complaints. OBJECTIVE VITAL SIGNS Temperature: [36.9 ??C-37.2 ??C] 36.9 ??C Heart Rate: [61-132] 75 Resp Rate: [11-21] 12 Blood Pressure: (100-129)/(62-83) 110/72 SpO2: [93 %-99 %] 99 % Pulse Rate: [63-132] 72 PHYSICAL EXAM Exam is unchanged from admission. EEG FINDINGS The EEG shows the following abnormalities: seizure recorded 09/26 @ 14:03: sat forward, later head and body turned to the right then progressed to a generalized tonic-clonic seizure. EEG showed synchronous onset LF11 (left mid frontal), LE 4-10 (left mid frontal), LAB 10 (left mid temporal gyrus), LP 13-16 (left sup frontal) - after 100 msec lag activation RE 7&13, RX 1-2 & 6-8 - then seizure settles focally in LP 13-16 (sup frontal), LC 13-14 (lateral temporal), LAB 10-16 (mid temporal gyrus). Interictal activity persists as described yesterday. 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 May be a candidate for DBS or subthreshold stimulation. Plan: Will commence trial of subthreshold cortical stimulation targeting areas of earliest seizure focality. Dr. Luong kindly agreed to initiate this today. We have not met the goals of this admission which is to record the patient's typical clinical events, therefore we need to continue monitoring. Total time with patient: 15 minutes; greater than 50% of time counseling and coordination of care. Discharge Information: tbd Kody Kumar M.D., Ph.D. - 09/27/2018 8:15 AM CDT POD#3 SEEG placement SUBJECTIVE: - No issues overnight - No additional seizures - Seizures captured so far have a diffuse origin. EXAM: AOX3, CN grossly intact, strength and sensation grossly intact in all four extremities PLAN: - Advance diet and activity, encourage ambulation - Pain control with oral agents - Hold DVT PPx - Two post-op doses of antibiotics - Removal of SEEGs pending Neurology approval, possibly tomorrow Please page the [facility] Service at [phone] with questions. Jann Dillon M.S.N., R.N. - 09/26/2018 2:27 PM CDT Patient had a seizure at approximately 2 pm that lasted for one minute and 13 seconds. Her left arm was extended and the right close to her chest. One of her leg was extended as well. Herhead was also extended backwards. She was moaning during the seizure. Oxygen was applied during the seizure and we suction her mouth after seizure ended. She was confused after the seizure. She was able to verbalize her last name at 2 25 pm. Pietro Pickett M.D. - 09/26/2018 10:32 AM CDT SUBJECTIVE Had a seizure this morning at 06:30, typical semiology with rightward body turning then generalization. Onset was bisynchronous involving the bilateral frontotemporal regions. On rounds head felt sore but no other complaints. Fully alert without aphasia. Difficulty chewing likely related to electrode piercing temporalis. OBJECTIVE VITAL SIGNS Temperature: [36.9 ??C-37.1 ??C] 37 ??C Heart Rate: [68-154] 91 Resp Rate: [9-34] 17 Blood Pressure: (105-130)/(60-82) 121/82 Arterial Line BP: (87-144)/(63-82) 105/63 SpO2: [85 %-100 %] 97 % Weight: [65.3 kg] 65.3 kg BMI (Calculated): [26.3 kg/m??] 26.3 kg/m?? Pulse Rate: [68-152] 91 PHYSICAL EXAM Exam is unchanged from admission. EEG FINDINGS The EEG shows the following abnormalities: One recorded clinical seizure, onset: LE 8-11, LY 2-13, LA-B 9-11, LP 12-16, RX 5-7, RE 7&13, RAB 4-5 &13. 4 subclinical seizures: LAB 10 (mid temporal not adjacent to MAGDALENE dipoles), spreading to LT 6-8 and LC1-4. Interictal activity involving LE 4-9, LY 5-13, LAB 10-11, LP 14-16, LQ 11-13, RE 7&10-11 (midfrontal, superior frontal, mid temporal gyri). 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 Subclinical seizures were quite focal. Unfortunately first clinical seizure showed bisynchronous activation as first electrographic onset. Will continue off seizure medications for now. Patient clinically stable at present. Total time with patient: 15 minutes; greater than 50% of time counseling and coordination of care. Discharge Information: tbd Kody Kumar M.D., Ph.D. - 09/26/2018 7:51 AM CDT POD#2 SEEG placement SUBJECTIVE: - No events overnight - Had a 2 min GTC in front of me this morning, and remains post-ictal - Otherwise doing well, no active non-seizure issues EXAM: AOX3, CN grossly intact, strength and sensation grossly intact in all four extremities PLAN: - Advance diet and activity, encourage ambulation - Pain control with oral agents - Hold DVT PPx - Two post-op doses of antibiotics - Removal of SEEGs pending Neurology approval Please page the [facility] Service at [phone] with questions. Pietro Pickett M.D. - 09/25/2018 10:03 AM CDT SUBJECTIVE There has not been any significant clinical changes since yesterday. Has headache requiring opiates and decreased appetite. OBJECTIVE VITAL SIGNS Temperature: [36.8 ??C-37.1 ??C] 36.9 ??C Heart Rate: [75-106] 82 Resp Rate: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 [id number] Electrode ELCTRD EEG 16 CONTCT 54.5 66495 [employer] 230311 Left 1 Explanted ELCTRD EEG 16 CONTCT 54.5 - [id number] - [id number] Electrode ELCTRD EEG 16 CONTCT 54.5 24057 [employer] 277941 Left 1 Explanted ELCTRD EEG 16 CONTCT 68.5 - [id number] - [id number] Electrode ELCTRD EEG 16 CONTCT 68.5 30415 [employer] [id number] Left 1 Explanted ELCTRD EEG 16 CONTCT 68.5 - [id number] - [id number] Electrode ELCTRD EEG 16 CONTCT 68.5 31765 [employer] 783610 Right 1 Explanted ELCTRD EEG 18 CONTCT 61.5 - [id number] - [id number] Electrode ELCTRD EEG 18 CONTCT 61.5 82561 [employer] 860680 Left 1 Explanted ELCTRD EEG 18 CONTCT 61.5 - [id number] - [id number] Electrode ELCTRD EEG 18 CONTCT 61.5 60880 [employer] 839352 Left 1 Explanted Intra-op Medications None Prosper Alegria M.D. Brief Op Note - Prosper Alegria M.D. - 09/30/2018 2:28 PM CDT BRIEF OP NOTE Procedure(s) (LRB): REMOVE INTRACRANIAL ELECTRODES; SEEG lead removal (N/A) Surgeon(s) and Role: * Zan Wise M.D. - Primary * Prosper Alegria M.D. - Barrel Line Operator Anesthesia Type: Monitored anesthesia care Pre-Operative Diagnosis: Epilepsy Seizure Not Intractable Without Status Epilepticus (HCC) [G40.909] Post-Operative Diagnosis: Same as pre-operative diagnosis Findings: As expected Complications: None Specimens * No specimens in log * Drains * No drains in log * Estimated Blood Loss No blood loss documented. Implants Implant Name Type Inv. Item Serial No. Hair And Makeup Designer Lot No. LRB No. Used Action ELCTRD EEG 12 CONTCT 40.5 - [id number] - [id number] Electrode ELCTRD EEG 12 CONTCT 40.5 76930 [employer] [id number] Left 1 Explanted ELCTRD EEG 12 CONTCT 40.5 - [id number] - [id number] Electrode ELCTRD EEG 12 CONTCT 40.5 87648 [employer] 895539 Left 1 Explanted ELCTRD EEG 12 CONTCT 40.5 - [id number] - [id number] Electrode ELCTRD EEG 12 CONTCT 40.5 40236 [employer] 548584 Right 1 Explanted ELCTRD EEG 14 CONTCT 47.5 - [id number] - [id number] Electrode ELCTRD EEG 14 CONTCT 47.5 52893 [employer] 751871 Left 1 Explanted ELCTRD EEG 14 CONTCT 47.5 - [id number] - [id number] Electrode ELCTRD EEG 14 CONTCT 47.5 23139 [employer] 579367 Right 1 Explanted ELCTRD EEG 16 CONTCT 54.5 - [id number] - [id number] Electrode ELCTRD EEG 16 CONTCT 54.5 17332 [employer] 937867 Left 1 Explanted ELCTRD EEG 16 CONTCT 54.5 - [id number] - [id number] Electrode ELCTRD EEG 16 CONTCT 54.5 19670 [employer] 463483 Left 1 Explanted ELCTRD EEG 16 CONTCT 54.5 - [id number] - [id number] Electrode ELCTRD EEG 16 CONTCT 54.5 76129 [employer] 408402 Left 1 Explanted ELCTRD EEG 16 CONTCT 68.5 - [id number] - [id number] Electrode ELCTRD EEG 16 CONTCT 68.5 46017 [employer] 102048 Left 1 Explanted ELCTRD EEG 16 CONTCT 68.5 - [id number] - [id number] Electrode ELCTRD EEG 16 CONTCT 68.5 81466 [employer] 023869 Right 1 Explanted ELCTRD EEG 18 CONTCT 61.5 - [id number] - [id number] Electrode ELCTRD EEG 18 CONTCT 61.5 38191 [employer] 437363 Left 1 Explanted ELCTRD EEG 18 CONTCT 61.5 - [id number] - [id number] Electrode ELCTRD EEG 18 CONTCT 61.5 64164 [employer] 216786 Left 1 Explanted Prosper Alegria M.D. Op Note - Zan Wise M.D. - 09/24/2018 1:35 PM CDT INDICATION: Medically intractable focal seizures. PROCEDURE(S) Stereoelectroencephalographic implantation 12 electrodes. SURGEON(S) Rajwinder Wise M.D. RESIDENT ASSISTING: Kody Kumar M.D. ANESTHESIA TYPE General. PRE-OPERATIVE DIAGNOSIS Suspected left cerebral seizures. POST-OPERATIVE DIAGNOSIS Suspected left cerebral seizures. FINDINGS As expected. COMPLICATIONS None. DESCRIPTION OF PROCEDURE After patient placed under general endotracheal anesthesia, the Leksell stereotactic frame was applied. The patient then went to Neuroradiology and had a CT venogram performed and returned to the operating room. We reviewed the electrode trajectories against the CT venogram and made minor adjustments in 2 of the pathways. The scalp was then prepped and draped. We first implanted the electrodes on theright side. Using the Marley Spoon stereotactic system, we systematically placed each of the electrodes. At each site, a twist drill opening was made in the skull. The pericranium was coagulated. The skull was drilled. The dura was coagulated. The skull bolt was placed. The new distance was measured, and the trajectory sounded. The electrode was then placed and secured. In this way, systematically we wentahead and placed all the electrodes, first on the right and then on the left side. All contacts werefunctioning well. No unexpected or unusual bleeding was encountered at any site. The patient was then taken out of the stereotactic Leksell frame. The head was dressed. She awoke well and was taken to CT scan. Our electrode trajectories were checked and felt to be satisfactory. The patient was then taken to the intensive care area. SPECIMENS None. DRAINS None. ESTIMATED BLOOD LOSS 0 mL. IMPLANTS 12 SEEG electrodes. TPR: [address] Job ID: [id number] Brief Op Note - Kody Kumar M.D., Ph.D. - 09/24/2018 8:44 AM CDT BRIEF OP NOTE Procedure(s) (LRB): Application Leksell Headframe, CTV to follow, Stereotactic implantation bilateral SEEG, depth electrodes, intraoperative EEG, post op CT head, electrode protocol to follow. (Left) Surgeon(s) and Role: * Zan Wise M.D. - Primary * Kody Kumar M.D., Ph.D. 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 Brief Operative Note Details Specimens * No specimens in log * Drains Indwelling Urinary Catheter Non-latex 16 Fr. (Active) Estimated Blood Loss No blood loss documented. Implants Implant Name Type Inv. Item Serial No. Hair And Makeup Designer Lot No. LRB No. Used Action ELCTRD EEG 12 CONTCT 40.5 - [id number] - [id number] Electrode ELCTRD EEG 12 CONTCT 40.5 56595 [employer] [id number] Right 1 Implanted ELCTRD EEG 14 CONTCT 47.5 - [id number] - [id number] Electrode ELCTRD EEG 14 CONTCT 47.5 36960 [employer] 686964 Right 1 Implanted ELCTRD EEG 16 CONTCT 68.5 - [id number] - [id number] Electrode ELCTRD EEG 16 CONTCT 68.5 62988 [employer] 788423 Right 1 Implanted ELCTRD EEG 16 CONTCT 68.5 - [id number] - [id number] Electrode ELCTRD EEG 16 CONTCT 68.5 86755 [employer] 428665 Left 1 Implanted ELCTRD EEG 18 CONTCT 61.5 - [id number] - [id number] Electrode ELCTRD EEG 18 CONTCT 61.5 39659 [employer] 700266 Left 1 Implanted ELCTRD EEG 12 CONTCT 40.5 - [id number] - [id number] Electrode ELCTRD EEG 12 CONTCT 40.5 63291 [employer] 383401 Left 1 Implanted ELCTRD EEG 12 CONTCT 40.5 - [id number] - [id number] Electrode ELCTRD EEG 12 CONTCT 40.5 83494 [employer] 720644 Left 1 Implanted ELCTRD EEG 14 CONTCT 47.5 - [id number] - [id number] Electrode ELCTRD EEG 14 CONTCT 47.5 49655 [employer] 913494 Left 1 Implanted ELCTRD EEG 18 CONTCT 61.5 - [id number] - [id number] Electrode ELCTRD EEG 18 CONTCT 61.5 48927 [employer] 103905 Left 1 Implanted ELCTRD EEG 16 CONTCT 54.5 - [id number] - [id number] Electrode ELCTRD EEG 16 CONTCT 54.5 50666 [employer] 085260 Left 1 Implanted ELCTRD EEG 16 CONTCT 54.5 - [id number] - [id number] Electrode ELCTRD EEG 16 CONTCT 54.5 17356 [employer] 126597 Left 1 Implanted ELCTRD EEG 16 CONTCT 54.5 - [id number] - [id number] Electrode ELCTRD EEG 16 CONTCT 54.5 57869 [employer] 213496 Left 1 Implanted Kody Kumar M.D., Ph.D. documented in this encounter Miscellaneous Notes Hospital Course - Kody Kumar M.D., Ph.D. - 10/01/2018 7:26 AM CDT On the day of admission, the patient was taken to the operative room by Dr. Wise for the procedure listed above. The intraoperative as well as the immediate postoperative course were uncomplicated. The patient was transferred from the PACU to the Neurosurgical ICU. Neurology monitored and stimulated for the duration of her ICU course. After testing was complete, the SEEGs were removed and she was transferred to the floor. She was ambulating and tolerating an oral diet at the time of dismissal. She had optimal pain control on oral medications. Her incision remained clean and intact. She then met criteria for dismissal and was discharged home. documented in this encounter Plan of Treatment Not on filedocumented as of this encounter Procedures Procedure Name Priority Date/Time Associated Diagnosis Comme nts REMOVE INTRACRANIAL 09/30/2018 1:40 PM Epilepsy Seizur e Not ELECTRODES CDT Intractable Without Status Epilepticus (HCC) INTRACRANIAL VIDEO Routine 09/30/2018 12:29 Focal Epilepsy Res ults for this EEG MONITORING PM CDT Symptomatic procedure are in Intractable Without the resu lts Status Epilepticus section. (HCC) IONM - EEG Routine 09/24/2018 12:42 Localization Related Res ults for this PM CDT Focal Partial procedure are in Idiopathic Epilepsy the resu lts And Epileptic section. Syndromes With Seizures Of Localized Onset Intractable Without Status Epilepticus (HCC) Localization Related Focal Partial Idiopathic Epilepsy And Epileptic Syndromes With Seizures Of Localized Onset Intractable Without Status Epilepticus (HCC) ADULT OXYGEN THERAPY Routine 09/24/2018 7:48 AM CDT CRANIOTOMY JERRI HOLES 09/24/2018 7:46 AM Localization Related CDT Focal Partial Idiopathic Epilepsy And Epileptic Syndromes With Seizures Of Localized Onset Intractable Without Status Epilepticus (HCC) documented in this encounter Results Intracranial Video EEG monitoring (09/30/2018 12:29 PM CDT) Specimen (Source) Anatomical Location Collection Method / Collectio n Time Received Time / Laterality Volume Narrative Pietro Pickett M.D. - 10/12/2018 5: 32 PM CDT CLINICAL INTERPRETATION: This computer-assisted prolonged stereotactic intracranial video-EEG with continuous s ubthreshold cortical stimulation (CSCS) trial is abnormal and notable for : 1) Two typical clinical seizures had sim ultaneous onset involving the left middle frontal gyrus (contacts LE6-11, L Y7-13, ??and LF11), left superior frontal gyrus (LP12-16), and left middle temporal gyrus (LAB9-11). One of these seizures had synchronous right hem ispheric involvement at onset in the middle frontal gyrus (RE7,13), anter ior cingulate (RX5-7), hippocampus (RAB4) and middle temporal gyrus (RAB13) . ?? 2) Five subclinical seizures had focal o nset in the left middle temporal gyrus (contact LAB10) with spread to the left planum polarum/superior temporal gyrus (contacts LT6-9) 3) Frequent independent interictal activ ity in the left middle temporal gyrus (contacts LAB10 and WHC23-13), lef t mesial temporal (contacts LAB1-5 and LC1-4), right mesial temporal (conta cts RAB2-5), right fusiform gyrus (contacts RAB-8), right inferior tempora l gyrus (contacts VKR34-18), right anterior cingulate (contacts RX2-3,8). T here was also frequents bursts of synchronic and, less often, independent discharges in the left middle frontal gyrus (contacts LE4-9 and LY5-13 ), left superior frontal gyrus (contacts LP9-16), left middle frontal g yrus (LF8-11), left orbital gyrus (contacts LF1-2), and right middle front al gyrus (contacts RE7,10-11). 4) Continuous subthreshold cortical stim ulation targeting the left superior frontal gyrus, middle frontal g yrus and middle temporal gyrus reduced interictal activity by over 90% and no seizures were appreciated in approximately 48 hours of trial subth reshold stimulation. The trial was considered successful given that patient had 7 seizures within the 48 hours preceding the stimulation on the s asbine drug regimen. These findings are consistent with subcl inical seizures arising from the left temporal neocortex and clinical sei zures with poorly localized onset involving the left fronto-temporal neoco rtex. A discrete seizure focus was not identified. Continuous subthreshold cortical stimulation trial of the left frontotemporal region was successfu l, suggesting that patient may benefit from neuromodulation therapy. EEG CLASSIFICATION: SPECIAL STUDY: ??Computer-assisted prolo nged stereotactic intracranial video EEG. Dysrhythmia grade 3 multifocal spikes, 6 seizures. Recorded 5 electrographic seizures with left middle temporal neocortical onset and 2 electroclinical seizures wit h diffuse left frontotemporal neocortical onset. EEG REPORT: Computer-assisted prolonged stereotactic intracranial video EEG monitoring was performed during the time period ind icated. INTERICTAL DISCHARGES: ??Interictal spik es noted: Frequent independent: - Left middle temporal gyrus: contacts L AB10 and LFV12-42 - Left mesial temporal cortex: contacts LAB1-5 and LC1-4 - Right mesial temporal cortex: contacts RAB2-5 - Right fusiform gyrus: contacts RAB-8 - Right inferior temporal gyrus: contact s [id number] - Right anterior cingulate: contacts RX2 -3,8 - Frequent synchronic bursts involved: - Left middle frontal gyrus: contacts LE 4-9 and LY5-13 - Left superior frontal gyrus: contacts LP9-16 - Left middle frontal gyrus: contacts LF 8-11 - Left orbital gyrus: contacts LF1-2 - Right middle frontal gyrus: contacts R E7,10-11 CLINICAL EVENTS: During the monitoring s ession the patient had: 1) Five subclinical seizures arising fro m the left middle temporal gyrus (contact LAB10) with spread to the left planum polarum/superior temporal gyrus (contacts LT6-9): Seizure #1: 03/12 at 19:47:07 to 19:49:3 5 Seizure #2: 03/12 at 19:54:02 to 19:54:4 8. Seizure #3: 03/12 at 19:56:18 to 19:57:0 8. Seizure #4: 03/12 at 20:13:16 to 20:14:2 2. Seizure #5: 03/12 at 20:30:43 to 20:32:2 6. 2) Two clinical seizures with diffuse on set: Sz # Time First EEG change First Behavioral Change Seizure Onset ??Early spread (approx. 0.1sec) Cl inical #6 09/26/18 06:30:38 ? 06:31:16: 06:30:38 06:30:47 LE6-11; LY7-13; LAB9-11; LP12-16; RE7,13; RX5-7; and RAB4,13 LF1-10 and LZ 1-2. opened eyes, turned head and body to the right, ictal cry, then GTC. #7 09/26 14:03:12 ? 14:04:26 14:03:12 14:04:14 LF11; LE4-10; LB10; and LP13-16 LC13-14, RX1-2,6-8, RE7, RE13 scratched head with right hand, sat up in bed, staring off, right head and body tu rn, ictal cry, then GTC. #### Continuous subthreshold cortical st imulation trial: 09/27/18 at 11:00 to 09/29/18 at 13:19. 09/27/18 at 11:00: Stimulation started. Electrodes stimulated and respective ifeoma rges: LAB: - LP: 10+ - - LY 6- 8- - 12+ LE: 4+ 8- 10- Parameters: PW300, 2Hz, 3V, approximatel y 1.5 kOhm Result: Immediate 50-75% decrement of IE Ds. ??No side effects reported. 09/27/18 at 15:00: Parameters changed du e to some breakthrough interictal epileptiform discharges. Amplitude increased from 3V to 4V. ?? Result: Immediate 100% decrement of IEDs . No side effects reported. 09/29/18 at 13:19: Stimulation trial com pleted. More than 90% decrement of IEDs was noted. No seizures occurred. No side effects reported. Dr. Pickett reviewed the study and agree d with the interpretation. Zan Wise M.D. NEUROLOGY ORDERABLES IONM - EEG (09/24/2018 12:42 PM CDT) Specimen (Source) Anatomical Location Collection Method / Collectio n Time Received Time / Laterality Volume Narrative Pietro Pickett M.D. - 09/25/2018 2: 23 PM CDT CLINICAL INTERPRETATION: Intraoperative recording during implanta tion of stereo EEG electrodes was satisfactory. ??Specific targets include the left frontopolar (LF), frontal eye field/ant cingulate (LE), midcingula te (LY), posterior cingulate (LZ), head of hippocampus/amygdala (LAB), tail of hippocampus (LC), posterior insula/sup frontal gyrus (LP), superior parietal/precuneus (LQ), superior temporal (LT); right superior frontal/an t. cingulate (RX), frontal eye field/ant. cingulate (RE), and head of t he hippocampus/amygdala (RAB). EEG CLASSIFICATION: Intraoperative recor ding during implantation of 9 leads into the left hemisphere and 3 teodoro d into the right hemsiphere. REPORT: ??The stereo EEG implantation wa s managed by consultant electronics neurosurgeon Dr. Wise. ??Intracranial v ideo-EEG monitoring was performed during intracranial stereo EEG electrode placement. ??All electrodes were placed according to the pre-operative pl anned trajectories. Stereo EEG electrodes: All electrodes in contact with brain tis abril were noted to be recording well intraoperatively. Dr. Pickett reviewed the recordings and agreed with the report. Zan Wise M.D. NEUROLOGY ORDERABLES documented in this encounter Visit Diagnoses Diagnosis Localization Related Focal Partial Idiop athic Epilepsy And Epileptic Syndromes With Seizures Of Localized Onset Intractable Without Status Epilepticus (HCC) - Primary Epilepsy Seizure Not Intractable Without Status Epilepticus (HCC) 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) Nicotine Dependence Cigarettes With With drawal documented in this encounter Admitting Diagnoses Diagnosis Localization Related Focal Partial Idiop athic Epilepsy And Epileptic Syndromes With Seizures Of Localized Onset Intractable Without Status Epilepticus (HCC) Epilepsy And Recurrent Seizures NOS Epilepsy Seizure Not Intractable Without Status Epilepticus (HCC) documented in this encounter Administered Medications Inactive Administered Medications - up to 3 most recent administrations Medication Order MAR Action Action Date Dose Rate Site acetaminophen tablet 1,000 mg Given 10/01/2018 9:05 AM CDT 1,000 mg (TYLENOL) 1,000 mg, oral, Every 6 hours PRN, pain, Starting on Mon09/24/18 at 1338 Given 09/29/2018 6:21 PM CDT 1,000 mg Given 09/28/2018 5:32 PM CDT 1,000 mg ceFAZolin in dextrose (iso-os) IVPB 2 New Bag 10/01/2018 9:52 AM CDT 2 g 200 mL/hr g (ANCEF) 2 g, intravenous, at 200 mL/hr, Administer over 30 Minutes, Every 8 hours, First dose on Mon09/24/18 at 1800, Start within 8 hours of last IV dose. premix, Drug Monitoring Program: Pharmacist to adjust medication dosing based on indication and drug clearance factors., Indications: Prophylaxis, medical New Bag 10/01/2018 3:05 AM CDT 2 g 200 mL/hr New Bag 09/30/2018 6:03 PM CDT 2 g 200 mL/hr D5W infusion 10-250 mL/hr, intravenous, As needed, Medications Inco mpatible with 0.9% NaCL, Starting on Mon09/26/18 at 0934, Infuse at the same ra te as the piggyback until tubing clears or up to a volume of 20 mL pre and post infusion for medications incompatible with 0.9% NaCL. Use 100 mL bag then disca rd. dexamethasone injection 4 mg (DECADRON) Given 09/25/2018 11:32 AM CDT 4 mg 4 mg, intravenous, 4 times daily, First dose on Mon09/24/18 at 1700, For 4 doses, Convert to PO when tolerated. Given 09/25/2018 8:31 AM CDT 4 mg Given 09/24/2018 8:31 PM CDT 4 mg dexamethasone tablet 1 mg (DECADRON) Given 09/28/2018 11:37 AM CDT 1 mg 1 mg, oral, 4 times daily, First dose on Mon09/27/18 at 1700, For 4 doses, Contact pharmacist if IV needed. Given 09/28/2018 7:48 AM CDT 1 mg Given 09/27/2018 8:10 PM CDT 1 mg dexamethasone tablet 2 mg (DECADRON) Given 09/27/2018 11:35 AM CDT 2 mg 2 mg, oral, 4 times daily, First dose on Mon09/26/18 at 1700, For 4 doses, Contact pharmacist if IV needed. Given 09/27/2018 7:52 AM CDT 2 mg Given 09/26/2018 8:55 PM CDT 2 mg dexamethasone tablet 3 mg (DECADRON) Given 09/26/2018 12:31 PM CDT 3 mg 3 mg, oral, 4 times daily, First dose on Mon09/25/18 at 1700, For 4 doses, Contact pharmacist if IV needed. Given 09/26/2018 7:52 AM CDT 3 mg Given 09/25/2018 8:01 PM CDT 3 mg fentaNYL (SUBLIMAZE) 50 mcg/mL injection - ADS Override Pull Starting on Mon09/24/18 at 1343, For 1 dose, Created b y cabinet override fentaNYL injection 12.5 mcg (SUBLIMAZE) Given 09/30/2018 2:49 PM CDT 50 mcg 12.5 mcg, intravenous, Every 2 hour PRN, severe pain or score 7-10 of 10, Starting on Mon09/24/18 at 1338, For breakthrough pain unrelieved 30 minutes after PRN pain medication is used. May administer IV pain medication concurrently with PRN oral medication if pain is greater than or equal to 7 in order to provide immediate relief. Given 09/30/2018 2:43 PM CDT 50 mcg Given 09/24/2018 1:48 PM CDT 12.5 mcg lacosamide 400 mg in NaCl 0.9% IVPB New Bag 09/29/2018 7:16 PM CDT 400 mg 280 mL/hr (VIMPAT) 400 mg, intravenous, at 280 mL/hr, Administer over 30 Minutes, Once, On 09/29/18 at 1900, For 1 dose lacosamide tablet 100 mg (VIMPAT) Given 10/01/2018 8:49 AM CDT 100 mg 100 mg, oral, Every morning, First dose on Mon09/30/18 at 0900 Given 09/30/2018 8:00 AM CDT 100 mg lacosamide tablet 200 mg (VIMPAT) Given 09/30/2018 8:33 PM CDT 200 mg 200 mg, oral, Daily at bedtime, First dose on Mon09/30/18 at 2100 lamoTRIgine tablet 100 mg (LaMICtal) Given 09/24/2018 10:00 PM CDT 100 mg 100 mg, oral, 2 times daily, First dose on Mon09/24/18 at 2200 lamoTRIgine tablet 200 mg (LaMICtal) Given 10/01/2018 8:49 AM CDT 200 mg 200 mg, oral, 2 times daily, First dose on Mon09/30/18 at 0900 Given 09/30/2018 8:33 PM CDT 200 mg Given 09/30/2018 8:00 AM CDT 200 mg lamoTRIgine tablet 200 mg (LaMICtal) Given 09/29/2018 6:21 PM CDT 200 mg 200 mg, oral, Once, On 09/29/18 at 1900, For 1 dose LORazepam injection 4 mg (ATIVAN) 4 mg, intravenous, Every 4 hours PRN, se izures, Convulsive seizures longer than 3 minutes or more than 2 convulsive seizur es within an hour. May repeat a half-dose (2 mg) IV if seizure activity persists a fter 3 minutes., Starting on Mon09/24/18 at 1108, For intravenous use, dilute with equal volume of 0.9% NS NaCl 0.9% infusion Rate/Dose Verify 09/24/2018 5:00 PM CDT 50 mL/hr 50 mL/hr 50 mL/hr, intravenous, Continuous, Starting on Mon09/24/18 at 1345, For 6 hours Rate/Dose Verify 09/24/2018 4:00 PM CDT 50 mL/hr 50 mL/hr Rate/Dose Verify 09/24/2018 3:00 PM CDT 50 mL/hr 50 mL/hr NaCl 0.9% infusion 10-250 mL/hr, intravenous, As needed, Be tween Consecutive Piggyback Medications, Starting on Mon09/26/18 at 0934, Infuse at the same ra te as the piggyback until tubing clears or up to a volume of 20 mL . Select for IV medication administration when no maintenance IV available or when IV medication s are not compatible with maintenance fluid. NaCl 0.9% infusion 10-250 mL/hr, intravenous, As needed, Post Medications (Hazardous/Low Fluid Volume), Starting on Mon09/26/18 at 0934 , Infuse at the same rate as the medication until tubing cleared of medication, then discard. nicotine 10 mg inhaler 1 puff (NICOTROL) Given 09/28/2018 8:30 PM CDT 1 puff 1 puff, inhalation, As needed, smoking cessation, Starting on Mon09/25/18 at 1639, Inhale with continuous puffing over 20 minutes; Initial 6 to 16 cartridges per day; MAX 16 cartridges per day. Given 09/28/2018 5:30 PM CDT 1 puff Given 09/28/2018 2:31 PM CDT 1 puff nicotine 14 mg/24 hr 1 Medication Applied 09/25/2018 9:28 PM 1 patch Left Shoulder patch (NICODERM CQ) CDT 1 patch, transdermal, Administer over 24 Hours, Daily, First dose (after last modification) on Mon09/25/18 at 2130 nicotine 14 mg/24 hr 1 Medication Applied 09/29/2018 8:07 PM 1 patch Right Shoulder patch (NICODERM CQ) CDT 1 patch, transdermal, Administer over 24 Hours, Daily at bedtime, First dose (after last modification) on Mon09/26/18 at 2100 Medication Applied 09/28/2018 8:09 PM CDT 1 patch Left Arm Medication Applied 09/27/2018 8:11 PM CDT 1 patch Left Shoulder nicotine 21 mg/24 hr 1 Medication Applied 09/25/2018 8:31 AM 1 patch Left Shoulder patch (NICODERM CQ) CDT 1 patch, transdermal, Administer over 24 Hours, Daily, First dose on Mon09/25/18 at 0900 nicotine 21 mg/24 hr 1 Medication Applied 09/29/2018 8:07 PM 1 patch Right Shoulder patch (NICODERM CQ) CDT 1 patch, transdermal, Administer over 24 Hours, Daily at bedtime, First dose (after last modification) on Mon09/26/18 at 2100 Medication Applied 09/28/2018 8:09 PM CDT 1 patch Left Arm Medication Applied 09/27/2018 8:11 PM CDT 1 patch Left Shoulder oxyCODONE IR tablet 10 mg (ROXICODONE) Given 10/01/2018 3:05 AM CDT 10 mg 10 mg, oral, Every 4 hours PRN, severe pain or score 7-10 of 10, or for pain greater than comfort goal, Starting on Mon09/24/18 at 1338 Given 09/30/2018 10:01 PM CDT 10 mg Given 09/30/2018 6:02 PM CDT 10 mg oxyCODONE IR tablet 5 mg (ROXICODONE) Given 10/01/2018 9:05 AM CDT 5 mg 5 mg, oral, Every 4 hours PRN, moderate pain or score 4-6 of 10, Starting on Mon09/24/18 at 1338 Given 09/28/2018 7:52 AM CDT 5 mg Given 09/26/2018 10:36 AM CDT [address] tablet 40 mg (PROTONIX) Given 09/28/2018 7:48 AM CDT 40 mg 40 mg, oral, Daily before breakfast, First dose on Mon09/25/18 at 0700, For 4 days, Swallow whole. Do NOT crush, chew, or split tablet. Given 09/27/2018 6:06 AM CDT 40 mg Given 09/26/2018 7:52 AM CDT 40 mg sennosides-docusate sodium 8.6-50 mg per Given 09/25/2018 8:01 P M CDT 1 tablet tablet 1 tablet (SENOKOT-S) 1 tablet, oral, Daily at bedtime, First dose on Mon09/24/18 at 2100, For constipation. Hold for diarrhea. Given 09/24/2018 8:31 PM CDT 1 tablet sennosides-docusate sodium 8.6-50 mg per Given 09/29/2018 8: 07 PM CDT 2 tablets tablet 2 tablet (SENOKOT-S) 2 tablet, oral, Daily at bedtime, First dose (after last modification) on Mon09/26/18 at 2100, For constipation. Hold for diarrhea. Given 09/28/2018 8:05 PM CDT 2 tablets Given 09/27/2018 8:09 PM CDT 2 tablets documented in this encounter Active and Recently Administered Medications Times are shown in CDT. Scheduled Medication Order 09/29/2018 09/30/2018 10/01/2018 ceFAZolin in dextrose (iso-os) IVPB 2 g (ANCEF) 0150 ( New Bag - Provider: Radha Link.S.NFlex, R.N.)0911 (New Bag - Provider: Flaquita Mcadams R.N.)1730 (New Bag - Provider: Kaitlynn Bob R.N.) 0204 (New Bag - Provider: Sheridan Garcia R.N.)0900 (New Bag - Provider: Gabi Clay R.N.)1803 (New Bag - Provider: Angelique Banuelos R.N.) 0305 (New Bag - Provider: Sara Garcia R.N.)0952 (New Bag - Provider: Melisa Miles R.N.) 2 g, intravenous, at 200 mL/hr, Administ er over 30 Minutes, Every 8 hours, First dose on Mon09/24/18 at 1800, Start within 8 hours of last IV dose. premix, Drug Monitoring Program: Pharmacist to adjust medication dosing based on indication an d drug clearance factors., Indications: Prophylaxis, medical lacosamide 400 mg in NaCl 0.9% IVPB (VIMPAT) (COMPLETE D) 1915 (New Bag - Provider: Kaitlynn Bob RFlexNFlex) 400 mg, intravenous, at 280 mL/hr, Admin ister over 30 Minutes, Once, On 09/29/18 at 1900, For 1 dose lacosamide tablet 100 mg (VIMPAT) 0800 ( Given - Provider: Gabi Clay R.N.)1410 (SEP Hold - Provider: Transfer Provider, Automatic - Reason: Patient not available)145 (SEP Unhold - Provider: Prosper Alegria M.D.) 0849 (Given - Provider: Linda Sandoval) 100 mg, oral, Every morning, First dose on 09/30/18 at 0900 lacosamide tablet 200 mg (VIMPAT) 1410 ( SEP Hold - Provider: Transfer Provider, Automatic - Reason: Patient not available)145 (SEP Unhold - Provider: Prosper Alegria M.D.)2032 (Given - Provider: Edilma Andrea R.N.) 200 mg, oral, Daily at bedtime, First dose on 09/30/18 at 210 0 lamoTRIgine tablet 200 mg (LaMICtal) 080 0 (Given - Provider: Gabi Clay R.N.)1410 (SEP Hold - Provider: Transfer Provider, Automatic - Reason: Patient not available)145 (SEP Unhold - Provider: Prosper Alegria M.D.)2032 (Given - Provider: Edilma Andrea R.N.) 0849 (Given - Provider: Melisa Miles R.N.) 200 mg, oral, 2 times daily, First dose on 09/30/18 at 0900 lamoTRIgine tablet 200 mg (LaMICtal) (COMPLETED) 1820 (Given - Provider: Kaitlynn Bob R.N.) 200 mg, oral, Once, On 09/29/18 at 1900, For 1 dose nicotine 14 mg/24 hr 1 patch (NICODERM CQ)(Linked Grou p 1) 1915 (Medication Removed - Provider: Kaitlynn Bob R.N.)2006 (Medication Applied - Provider: Kaitlynn Bob R.N.) 1410 (SEP Hold - Provider: Transfer Provider, Automatic - Reason: Patient not available)145 (SEP Unhold - Provider: Prosper Alegria M.D.)1939 (Medication Removed - Provider: Edilma Andrea RFlexN.) 1 patch, transdermal, Administer over 24 Hours, Daily at bedtime, First dose (after last modification) on Mon09/26/18 at 2100 2038 (Not Given - Provider: Linda Díaz.N. - Reason: Patient/family refused) nicotine 21 mg/24 hr 1 patch (NICODERM CQ)(Linked Grou p 1) 1915 (Medication Removed - Provider: Kaitlynn Bob RFlexN.)2006 (Medication Applied - Provider: Kaitlynn Bob R.N.) 141 (SEP Hold - Provider: Transfer Provider, Automatic - Reason: Patient not available)1458 (SEP Unhold - Provider: Prosper Alegria M.D.)1939 (Medication Removed - Provider: Edilma Andrea RFlexN.) 1 patch, transdermal, Administer over 24 Hours, Daily at bedtime, First dose (after last modification) on Mon09/26/18 at 2100 2039 (Not Given - Provider: Edilma Andrea R.N. - Reason: Patient/family refused) sennosides-docusate sodium 8.6-50 mg per tablet 2 tabl et (SENOKOT-S) 2006 (Given - Provider: Kaitlynn Bob R.N.) 141 (SEP Hold - Provider: Transfer Provider, Automatic - Reason: Patient not available)1458 (SEP Unhold - Provider: Prosper Alegria M.D.)2032 (Not Given - Provider: Edilma Andrea RFlexN. - Reason: Patient/family refused) 2 tablet, oral, Daily at bedtime, First dose (after last modification) on Mon09/26/18 at 2100, For constipation. Hold for diarrhea. PRN Medication Order 09/29/2018 09/30/2018 10/01/2018 acetaminophen tablet 1,000 mg (TYLENOL) 1821 (Given - Provider: Kaitlynn Bob RFlexNFlex) 1410 (BANNER Hold - Provider: Transfer Prov ider, Automatic - Reason: Patient not available)1459 (BANNER Unhold - Provider: Prosper Alegria M.D.) 0905 (Given - Provider: Linda Sandoval) 1,000 mg, oral, Every 6 hours PRN, pain, Starting on Mon09/24/18 at 1338 benzocaine-menthol 15-3.6 mg per lozenge 1 lozenge (CEPACOL) 1410 (BANNER Hold - Provider: Transfer Provider, Automatic - Reason: Patient not available)1459 (BANNER Unhold - Provider: Prosper Alegria M.D.) 1 lozenge, oral, As needed, sore throat, throat irritation, Starting Mon09/24/18 at 1338 bisacodyl suppository 10 mg (DULCOLAX) 1 410 (BANNER Hold - Provider: Transfer Provider, Automatic - Reason: Patient not available)1459 (BANNER Unhold - Provider: Prosper Alegria M.D.) 10 mg, rectal, Daily PRN, constipation, Starting Mon09/24/18 at 1338, Ordered sequence of administration: polyethylene glycol, then bisacodyl until BM achieved. calcium carbonate chewable tablet 400 mg of calcium (TUMS) 1410 (BANNER Hold - Provider: Transfer Provider, Automatic - Reason: Patient not available)1459 (BANNER Unhold - Provider: Prosper Alegria M.D.) 400 mg of calcium, oral, Every 4 hours P RN, heartburn, indigestion, Starting Mon09/24/18 at 1338, Doses listed are in mg of elemental calcium. Take with food. 500 mg calcium carbonate contains 200 mg of elemental calcium. D5W infusion 1410 (BANNER Hold - Pro vider: Transfer Provider, Automatic - Reason: Patient not available)1459 (BANNER Unhold - Provider: Prosper Alegria M.D.) 10-250 mL/hr, intravenous, As needed, Me dications Incompatible with 0.9% NaCL, Starting on Mon09/26/18 at 0934, Infuse at the same rate as the piggyback until tubing clears or up to a volume of 20 mL pr e and post infusion for medications inco mpatible with 0.9% NaCL. Use 100 mL bag then discard. diphenhydrAMINE capsule 25 mg (BENADRYL) 1410 (BANNER Hold - Provider: Transfer Provider, Automatic - Reason: Patient not available)1459 (BANNER Unhold - Provider: Prosper Alegria M.D.) 25 mg, oral, Every 4 hours PRN, itching, rash, itching, Starting Mon09/24/18 at 1338 fentaNYL injection 12.5 mcg (SUBLIMAZE) 1410 (BANNER Hold - Provider: Transfer Provider, Automatic - Reason: Patient not available)1443 (Given - Provider: Yuko Lopez APRN, HOGSHEAD HEAD MATCHER)1449 (Given - Provider: Yuko Lopez APRN, HOGSHEAD HEAD MATCHER)1459 (BANNER Unhold - Provider: Prosper Alegria M.D.) 12.5 mcg, intravenous, Every 2 hour PRN, severe pain or score 7-10 of 10, Starting on Mon09/24/18 at 1338, For breakthrough pain unrelieved 30 minutes after PRN pain medication is used. May administer I V pain medication concurrently with PRN oral medication if pain is greater than or equal to 7 in order to provide immediate relief. LORazepam injection 4 mg (ATIVAN) 1410 ( BANNER Hold - Provider: Transfer Provider, Automatic - Reason: Patient not available)1459 (BANNER Unhold - Provider: Prosper Alegria M.D.) 4 mg, intravenous, Every 4 hours PRN, se izures, Convulsive seizures longer than 3 minutes or more than 2 convulsive seizures within an hour. May repeat a half- dose (2 mg) IV if seizure activity persists after 3 minutes., Starting on Mon at 1108, For intravenous use, dilute with equal volume of 0.9% NS magnesium hydroxide suspension 30 mL (MILK OF MAGNESIA) 1410 (BANNER Hold - Provider: Transfer Provider, Automatic - Reason: Patient not available)1459 (BANNER Unhold - Provider: Prosper Alegria M.D.) 30 mL, oral, Daily PRN, constipation, St arting Mon09/24/18 at 1338, Give magnesium hydroxide if no bowel movement by post-operative day 3. NaCl 0.9% infusion 1410 (SEP Hold - Pro vider: Transfer Provider, Automatic - Reason: Patient not available)1459 (BANNER Unhold - Provider: Prosper Alegria M.D.) 10-250 mL/hr, intravenous, As needed, Be tween Consecutive Piggyback Medications, Starting on Mon09/26/18 at 0934, Infuse at the same rate as the piggyback until tubing clears or up to a volume of 20 mL. Select for IV medication administration when no maintenance IV available or when IV medications are not compatible with maintenance fluid. NaCl 0.9% infusion 1410 (SEP Hold - Pro vider: Transfer Provider, Automatic - Reason: Patient not available)1459 (BANNER Unhold - Provider: Prosper Alegria M.D.) 10-250 mL/hr, intravenous, As needed, Po st Medications (Hazardous/Low Fluid Volume), Starting on Mon09/26/18 at 0934, Infuse at the same rate as the medication until tubing cleared of medication, then discard. naloxone injection 0.2 mg (NARCAN) 1410 (BANNER Hold - Provider: Transfer Provider, Automatic - Reason: Patient not available)1459 (BANNER Unhold - Provider: Prosper Alegria M.D.) 0.2 mg, intravenous, As needed, respirat ory depression, Starting Mon09/24/18 at 1338, For respiratory rate less than 8 breaths per minute or RASS score of -3, - 4, -5. Apply oxygen to keep oxygen saturations greater than 90% and notify service. nicotine 10 mg inhaler 1 puff (NICOTROL) 1410 (BANNER Hold - Provider: Transfer Provider, Automatic - Reason: Patient not available)1459 (BANNER Unhold - Provider: Prosper Alegria M.D.) 1 puff, inhalation, As needed, smoking c essation, Starting on Mon09/25/18 at 1639, Inhale with continuous puffing over 20 minutes; Initial 6 to 16 cartridges per day; MAX 16 cartridges per day. oxyCODONE IR tablet 10 mg (ROXICODONE) 1 350 (Given - Provider: Too Almeida R.N.)1410 (MAR Hold - Provider: Transfer Provider, Automatic - Reason: Patient not available)1459 (SEP Unhold - Provider: Prosper Alegria M.D.)1802 (Given - Provider: Angelique Banuelos R.N.) 0305 (Given - Provider: Sara Garcia R.N.) 10 mg, oral, Every 4 hours PRN, severe p ain or score 7-10 of 10, or for pain greater than comfort goal, Starting on Mon09/24/18 at 1338 2201 (Given - Provider: Edilma Andrea R.N.) oxyCODONE IR tablet 5 mg (ROXICODONE) 14 10 (SEP Hold - Provider: Transfer Provider, Automatic - Reason: Patient not available)1459 (SEP Unhold - Provider: Prosper Alegria M.D.) 0905 (Given - Provider: Linda Sandoval) 5 mg, oral, Every 4 hours PRN, moderate pain or score 4-6 of 10, Starting on Mon09/24/18 at 1338 polyethylene glycol powder packet 17 g (MIRALAX) 1410 (SEP Hold - Provider: Transfer Provider, Automatic - Reason: Patient not available)1459 (SEP Unhold - Provider: Prosper Alegria M.D.) 17 g, oral, Daily PRN, constipation, Sta rting Mon09/24/18 at 1338, Ordered sequence of administration: polyethylene glycol, then bisacodyl until BM achieved. Avoid mixing with starch-based thickened liquids. Linked Groups Order Group 1: nicotine 14 mg/24 hr 1 patch (NICODERM CQ)Jump to med 1 patch, transdermal, Administer over 24 Hours, Daily at bedtime, First dose (after last modification) on Mon09/26/18 at 2100 And nicotine 21 mg/24 hr 1 patch (NICODERM CQ)Jump to med 1 patch, transdermal, Administer over 24 Hours, Daily at bedtime, First dose (after last modification) on Mon09/26/18 at 2100 documented in this encounter Care Teams Tunnel Elastic Operator Zigzag Relationship Specialty Start Date End Date Patricio Palmer M.D. PCP - General Family Medicine 12/18/[address] [place] [phone] documented as of this encounter
--- OUTSIDE RECORDS SUMMARY | 2022-02-22 12:35 | XMS_ITS | Encounter Summary ---
:1985 Author Organization [facility] Address [address] [place] [address] Care Team Providers Name Role Phone Patricio Palmer M.D. Primary Care Provider Reason for Visit Reason Comments Seizures Encounter Details Date Type Department Care Team Description 09/28/2018 Documentation Department of Neurology in [place], Seizures [place], [place] Pippa, Ph.D. [address] [facility] [address] [place] [address] [place], [place] [phone] (Wo rk) Social History Tobacco Use Types [...] 1 to 4 times per year 05/18 mandaeism services? Do you belong to any clubs [...] or slept in a prison (including now)? 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 - 09/28/2018 1:29 PM CDT REASON FOR VISIT Luisa Coulter [...] the onset zone is not clearly localized. The initial 24 hours of electrical brain stimulation has markedly reduced her interictal abnormalities. She has not had further seizures. She is off her anti- seizure medication. ?? ASSESSMENT AND PLAN: The seizure onset is best localized to LP12-16 (sup frontal) and AB10-16 (left mid temporal gyrus) and with IEDs also including LY6-12 (mid frontal) and LE4-10 (mid frontal). We are stimulating an areabetween contacts LP, LY and LE, and the mid temporal gyrus. Given the marked reduction in IEDs we will not change stimulation parameters or location of stimulation. ?? Stimulation Details: 09/28/18: LAB: 10+ 12- 14- 16+ LP: 10+ - - 16- LY 6- 8- 10- 12+ LE: 4+ 8- 10- PW300, 2Hz, 4V, approximately 1.5 kOhm Approximately 90% decrement of IEDs. No side effects reported. ? documented in this encounter Plan of Treatment Not on filedocumented as of this encounter Visit Diagnoses Not on filedocumented in this encounter Care Teams Bike Assembler Relationship Specialty Start Date End Date Patricio Palmer M.D. PCP - General Family Medicine 12/18/[address] [place] [phone] documented as of this encounter
--- OUTSIDE RECORDS SUMMARY | 2022-02-22 12:35 | XMS_ITS | Encounter Summary ---
:[address] [facility] Address [address] [place] [address] Care Team Providers Name Role Phone Ptaricio Palmer M.D. Primary Care Provider Encounter Details Date Type Department Care Team Description 10/08/2018 Orders Only Department of Neurologic Orlin Thomason, Surgery in [facility] [address] [facility] [address] [place] [phone] Social History Tobacco Use Types Packs/Day Years [...] 1 to 4 times per year 05/18 anglican services? 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 PCP - General Family Medicine 12/18/[address] [place] [phone] documented as of this encounter
--- OUTSIDE RECORDS SUMMARY | 2022-02-22 12:35 | XMS_ITS | Encounter Summary ---
:1985 Author Organization [facility] Address [address] [place] [address] Care Team Providers Name Role Phone Patricio Palmer M.D. Primary Care Provider Reason for Visit Reason Onset Date Comments Post Hospital Follow-up 10/02/2018 Encounter Details Date Type Department Care Team Description 10/02/2018 Clinical Communication Department of [facility] Family Medicine, R, R.N. Follow-up [facility], [place] [address] [facility] [address] [place], [place] [phone] (Work) [phone] Social History Tobacco Use Types Packs/Day Years [...] or slept in a longterm (including now)? 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 Procedure 09/24/18 Stereoelectroencephalographic implantation 12 electrodes. Procedure 09/30/18 REMOVE INTRACRANIAL ELECTRODES; SEEG lead removal. General Health Luisa Coulter notes today she is feeling better than when she left the hospital. Patient confirms that the condition for which she was admitted has improved. Home management assessment post discharge: Patient states she has no questions or concerns. Actions taken: home care instructions reinforced or provided and appointment ordered/scheduled as per TCM guidelines Infection related to a resistant organism: no Surgical/Procedural Follow-up- 10/10/18 phone visit with results Medication Status Medication status assessment: is taking new medications as prescribed Medication management: Patient states medication is self managed. MTM Referral warranted: no Patient's understanding of medication's side effects: Patient recalls and understands all side effects and reactions relating to new medication(s). Medications concerns: none Is patient taking any of the following: Controlled substances: yes Taking as instructed: yes Experiencing side effects: yes, side effects are oxycodone making patient feel foggy and has stopped taking this medication. Antibiotics: yes Labs scheduled: no Taking as instructed:yes Experiencing side effects: no Diabetic medications: no Anticoagulants: no Home Care/Equipment Home care ordered: no Activities of Daily Living Has activities of daily living changed since hospitalization: no Ambulation Has ambulation changed since hospitalization: no Difficulty ambulating: patient stated she is slowly getting back to activity Follow-Up Appointment Follow-up appointment scheduled? yes Date of appointment: 10/04/18 Does patient plan to go to the appointment?: yes Concerns about getting to the appointment: issues getting to your appointment: none General Care and Feedback Actions: none Post-Hospital Assessment: Areas for hospital feedback: Post hospital near miss assessment: unscheduled return visit(s) documented in this encounter Plan of Treatment Not on filedocumented as of this encounter Visit Diagnoses Not on filedocumented in this encounter Care Teams Ballistics Teacher Relationship Specialty Start Date End Date Patricio Palmer M.D. PCP - General Family Medicine 12/18/[address] [place] [phone] documented as of this encounter
--- OUTSIDE RECORDS SUMMARY | 2022-02-22 12:35 | XMS_ITS | Encounter Summary ---
:1985 Author Organization [facility] Address [address] [place] [address] Care Team Providers Name Role Phone Patricio Palmer M.D. 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 - 10/04/2018 4:24 PM CDT Patient has not seen listed PCP Dr. Palmer since 02/18/17. Patient did see Scarlett Avendano CNP today. Willpend rx refill request to Scarlett. See rx refill request. Oxycodone 5mg IR tablet prescribed by Dr. Kody Kumar ([place]) during hospitalization. Qty # 20 tablets. Script [...] criteria for dismissal and was discharged home. Telephone Encounter - Crystal Camara - 10/04/2018 3:53 PM CDT Please do not reply to [...] you with today? Thank you for calling [facility]. documented in this encounter Plan of Treatment Not on filedocumented as of this encounter Visit Diagnoses Not on filedocumented in this encounter Care Teams Classification And Treatment Director Relationship Specialty Start Date End Date Patricio Palmer M.D. PCP - General Family Medicine 12/18/[address] [place] [phone] documented as of this encounter
--- OUTSIDE RECORDS SUMMARY | 2022-02-22 12:35 | XMS_ITS | Encounter Summary ---
:1985 Author Organization [facility] Address [address] [place] [address] Care Team Providers Name Role Phone Patricio Palmer M.D. Primary Care Provider Encounter Details Date Type Department Care Team Description 09/24/2018 Documentation Department of Neurology in [place], [place] [facility] [address] [email or web address] [address] [place] [address] [place], [place] [phone] Social History Tobacco Use Types Packs/Day Years [...] or relatives? How often do you attend gnosticism or 1 to 4 times per year 05/18 amish services? 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 PCP - General Family Medicine 12/18/[address] [place] [phone] documented as of this encounter
--- OUTSIDE RECORDS SUMMARY | 2022-02-22 12:35 | XMS_ITS | Encounter Summary ---
:1985 Author Organization [facility] Address [address] [place] [address] Care Team Providers Name Role Phone Patricio Palmer M.D. Primary Care Provider Encounter Details Date Type Department Care Team Description 10/08/2018 Clinical Communication Department of Anders Welch, Medicine, [facility], in [address] [address] [place] [address] [phone] Social History Tobacco Use Types Packs/Day Years [...] at Date Recorded Female 06/09/2021 2:09 PM [employer] documented as of this encounter Miscellaneous Notes Telephone Encounter - Emmie Palacios - 10/08/2018 10:08 AM CDT Returned call to patient. Explained we can see that Dr Wise from [place] sent in rx for oxycodonetoday for 15 tabs and no refills. Explained to patient that if she is going to continue to need refills of oxycodone, she will need to make appointment with PCP to discuss since this is a controlled substance. Patient verbalized understanding. Scarlett - I was unable to see your note from your visit with patient as it is not yet completed, so please advise if you have other recommendations for patient or agree with information I provided to her today. Thank You Telephone Encounter - Sheree Zapata Volodymyr - 10/08/2018 8:58 AM CDT Please do not reply to sender,emails are not monitored. Thank you. If you need a prescription refill please call your pharmacy. Please allow 3 business days for processing. Expert RN: Declined Call Center Template: ??? May we leave a message for you on this phone? yes What can I help you with today? Luisa call requesting to speak with Scarlett Avendano. Caller would like Scarlett to know that patient spoke with her doctors in [place]. Patient reports that the provider told her that it is up to Scarlett weather or not she is willing to refill her script. Patient didn't specify which script she was speaking of. She requests Scarlett call her back as soon as possible regarding this. I will send this information to the appropriate staff member who will look into your concern. Is there anything else I can help you with today? Thank you for calling [facility]. documented in this encounter Plan of Treatment Not on filedocumented as of this encounter Visit Diagnoses Not on filedocumented in this encounter Care Teams Ruby On Rails Consultant Relationship Specialty Start Date End Date Patricio Palmer M.D. PCP - General Family Medicine 12/18/[address] [place] [phone] documented as of this encounter
--- OUTSIDE RECORDS SUMMARY | 2022-02-22 12:35 | XMS_ITS | Encounter Summary ---
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 Provider, Automatic - Reason: Patient not available)1459 ([facility] Unhold - Provider: Prosper Alegria M.D.) 10-250 [...] with maintenance fluid. NaCl 0.9% infusion 1410 ([facility] Hold - Pro vider: Transfer Provider, Automatic - Reason: Patient not available)1459 ([facility] Unhold - Provider: Prosper Alegria M.D.) 10-250 mL/hr, intravenous, As needed, Po st Medications (Hazardous/Low Fluid Volume), Starting on Mon09/26/18 at 0934, Infuse at the same rate as the medication until tubing cleared of medication, then discard. naloxone injection 0.2 mg (NARCAN) 1410 ([facility] Hold - Provider: Transfer Provider, Automatic - Reason: Patient not available)1459 ([facility] Unhold - Provider: Prosper Alegria M.D.) 0.2 mg, intravenous, As needed, respirat ory depression, Starting Mon09/24/18 at 1338, For respiratory rate less than 8 breaths per minute or RASS score of -3, - 4, -5. Apply oxygen to keep oxygen saturations greater than 90% and notify service. nicotine 10 mg inhaler 1 puff (NICOTROL) 1410 ([facility] Hold - Provider: Transfer Provider, Automatic - Reason: Patient not available)1459 ([facility] Unhold - Provider: Prosper Alegria M.D.) 1 puff, inhalation, As needed, smoking c essation, Starting on Mon09/25/18 at 1639, Inhale with continuous puffing over 20 minutes; Initial 6 to 16 cartridges per day; MAX 16 cartridges per day. oxyCODONE IR tablet 10 mg (ROXICODONE) 1 350 (Given - Provider: Too Almeida, R.N.)1410 ([facility] Hold - Provider: Transfer Provider, [...] at 1338 2201 (Given - Provider: Edilma Andrea, R.N.) oxyCODONE IR tablet 5 mg (ROXICODONE) 14 10 ([facility] Hold - Provider: Transfer Provider, Automatic - Reason: Patient not available)1459 ([facility] Unhold - Provider: Prosper Alegria M.D.) 0905 [...] 2100 documented in this encounter Care Teams Cigarette Filter Inspector Relationship Specialty Start Date End Date Patricio Palmer M.D. PCP - General Family Medicine 12/18/[address] [place] [phone] documented as of this encounter
--- OUTSIDE RECORDS SUMMARY | 2022-02-22 12:35 | XMS_ITS | Encounter Summary ---
:[address] [facility] Address [address] [place] [address] Care Team Providers Name Role Phone Patricio Palmer M.D. Primary Care Provider Encounter Details Date Type Department Care Team Description 09/24/2018 Ancillary Procedure Department of Neurology Social History Tobacco Use Types Packs/Day Years [...] 1 to 4 times per year 05/18 jainism services? 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 documented in this encounter Results sEEG CT MRI Coregistration-Neurology Image Exam (09/24/2018 1:20 PM CDT) Specimen (Source) Anatomical Collection Method Collection Time Re ceived Time Location / / Volume Laterality 09/24/2018 1:20 PM CDT Narrative IIM[facility] - 09/24/2018 4:57 PM CDT This order has been created and auto-finalized to support the import of images acquired without order. The clini nicolette documentation to support these images can be found on the encounter edmund t produced images. Provider Not In System IMG NON RAD IMAGING PROCEDUR ES Performing Organization Address City/State/ZIP Code Phon e Number IIMS IIMS NA documented in this encounter Visit Diagnoses Not on filedocumented in this encounter Care Teams Fish Receiver Relationship Specialty Start Date End Date Patricio Palmer M.D. PCP - General Family Medicine 12/18/[address] [place], [place] [address] [phone] documented as of this encounter
--- OUTSIDE RECORDS SUMMARY | 2022-02-22 12:35 | XMS_ITS | Encounter Summary ---
:1985 Author Organization [facility] Address [address] [place] [address] Care Team Providers Name Role Phone Patricio Palmer M.D. 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 [address] [place] [phone] [address] [facility] JohnYuko tipton APRN, ASSISTANT GUEST SERVICES MANAGER [address] [place] [phone] [place] [address] Anesthesia Record Procedure Summary Procedure Name Responsible Anesthesia Start Anesthesia Stop Anesthesiologist Time Time REMOVE INTRACRANIAL Noelle Bray M.D. 09/30/18 1410 1506 ELECTRODES; SEEG lead removal Events Date Time Event Comment 09/30/2018 1410 In Room 1410 An Start Machine/Equipmen t Checked Infection Precautions Foll owed Procedure/Site Verified NPO Sta tus Verified Supine Standard ASA Mon itors Applied 1420 Turnover to Proceduralist 1428 Proc Start 1454 Proc Fin 1455 Turnover to ANE Staff 1457 an stop data 1500 Transfer to ICU/PCU Anesthesia t [place] medically necessary Report received and care transferred Vital signs stable dur ing transfer Ventilation and oxygen satur ation stable during transport 1501 Out of Room 1506 An End I completed my h andoff to the receiving staff during [facility] we 1. Identified the patient 2. Ident ified the responsible provider 3. Revi ewed the pertinent medical history 4. Discu ssed the surgical course 5. Reviewed intra-o p anesthesia management and issues during an esthesia 6. Set expectations for post-procedure period 7. Allowed opportun ity for questions and acknowledgement of understanding. Name Total propofol 10 mg/mL infusion 313.44 mg lidocaine 2% (mg) injection 100 mg propofol bolus from bag 100 mg ceFAZolin 2 g fentaNYL injection 12.5 mcg (SUBLIMAZE) 100 mcg Lactated Ringers Free Drip 400 mL Agents No agents on file. Blood No blood administrations on file. Lines, Drains, and Airways Type Details Placement Removal (RETIRED) Wound 03/06/18; 0015; No; 03/06/18 0015 by 01/21/20 00 00 by Laceration; Head White, Suad F, Hargarten, St even (Comment) (bahai and B.S.N., R.N. D, R.N. lip); Right; 01/21/20 Peripheral IV Placement Date: 09/24/18 07 by 09/30/18 1806 b y 09/24/18; Placement Berkley Clifford Katelyn Time: 708; Catheter E, R.N. Size: 20 G; Orientation: Left; Location: Hand; Site Prep: Chlorhexidine (Preferred); Technique: Anatomical landmarks; Inserted by: DT; Insertion Attempts: 1; Removal Date: 09/30/18; Removal Time: 180; Removal Reason: No longer in place Peripheral IV Placement Date: 09/24/18 0830 by 10/03/19 0000 b y 09/24/18; Placement Lisset Lazaro Barton, Tar yn E, Time: 829; Catheter REFERRAL COORDINATOR, ASSISTANT GUEST SERVICES MANAGER, DNAP R.N. Size: 18 G; Orientation: Right; Location: Forearm; Removal Date: 10/03/19; Removal Reason: No longer in place Intentionally Packed 09/24/18; 1231; Packed 09/24/18 1231 by 1457 by Surgical Item(s) in wound; Head; Steve Valdes, Mare Lynne y Bilateral R.N. R, R.N. (RETIRED) Incision 09/30/18; 1454; Head 09/30/18 1454 by 0 0000 by (Comment); No dressing Tasha Sloan, Fortunato Cassidy placed; 01/21/20 R.N. D, R.N. documented in this encounter Social History [...] or relatives? How often do you attend lutheran or 1 to 4 times per year 05/18 baptist services? Do you belong to any clubs or No 06/09/2021 organizations such as lutheran groups, unions, fraternal or athletic groups, or [...] or slept in a correction (including now)? 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 Responsible Provider: Noelle Bray M.D. Anesthesia Type: MAC ASA Status: 2 - Emergent Anesthesia Type: MAC Last vitals: see ICU flowsheet for full details Vitals Value Taken Time BP 09/30/2018 3:11 PM Temp 09/30/2018 3:11 PM Pulse 76 09/30/2018 3:11 PM Resp 16 09/30/2018 3:11 PM SpO2 97 % 09/30/2018 3:11 PM Vitals shown include unvalidated device data. Anesthesia Post Evaluation Patient Disposition: monitored unit, expectation for recovery time deferred to receiving unit Cardiovascular status: hemodynamics (HR & BP) acceptable Respiratory status: patent airway with spontaneous effort Temperature: normothermic Oxygen requirements: room air Level of consciousness: awake Pain score: pain adequately controlled and/or at baseline Post Op nausea/vomiting: none Hydration status: euvolemic Anesthesia Preprocedure Evaluation - Noelle Bray M.D. - 09/30/2018 2:22 PM CDT Anesthesia Pre-Evaluation Pertinent components of the patient's history including current problem list, medical history, surgical history, family history, social history, medications and allergies were reviewed and updated as appropriate. The patient was examined and the Pre-op diagnosis, planned procedure, and H&P were reviewed and remain unchanged. 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) OBJECTIVE PHYSICAL EXAMINATION Airway (HEENT) Mallampati: I TM Distance: >3 FB Neck ROM: Full Mouth Opening: >3 cm Cardiovascular Rhythm: Regular Rate: Normal Cardiovascular Assessment: cardiovascular normal Functional Capacity: >4 METS Pulmonary Pulmonary Assessment: Clear Neurological Normal Dental Normal General / Constitutional Normal ASSESSMENT / PLAN ANESTHESIA PLAN ASA: 2 - Emergent Anesthesia Plan: MAC Patient seen and allergies reviewed; anesthesia plan and risks discussed directly with patient / legal guardian, or through an lung puller; patient evaluated and approved for anesthesia / sedation. The use of blood products not discussed documented in this encounter Plan of Treatment Not on filedocumented as of this encounter Visit Diagnoses Not on filedocumented in this encounter Administered Medications Inactive Administered Medications - up to 3 most recent administrations Medication Order MAR Action Action Date Dose Rate Site ceFAZolin injection (ANCEF) Given 09/30/2018 2:24 PM CDT 2 g As needed, Starting on 09/30/18 at 1424, Anesthesia Intra-op fentaNYL injection 12.5 mcg (SUBLIMAZE) Given 09/30/2018 2:49 PM CDT 50 mcg 12.5 mcg, intravenous, Every 2 hour PRN, severe pain or score 7-10 of 10, Starting on 09/24/18 at 1338, For breakthrough pain unrelieved 30 minutes after PRN pain medication is used. May administer IV pain medication concurrently with PRN oral medication if pain is greater than or equal to 7 in order to provide immediate relief. Given 09/30/2018 2:43 PM CDT 50 mcg Given 09/24/2018 1:48 PM CDT 12.5 mcg lactated ringers New Bag 09/30/2018 2:13 PM CDT intravenous, Continuous Infusion: Per Instructions PRN, Starting on 09/30/18 at 1413, Anesthesia Intra-op lidocaine (PF) (cardiac) injection Given 09/30/2018 2:13 PM CDT 100 mg intravenous, As needed, Starting on 09/30/18 at 1413, Anesthesia Intra-op propofol 10 mg/mL infusion Rate/Dose 09/30/2018 2:49 150 mcg/kg/min 58.8 mL/hr (DIPRIVAN) Change PM CDT intravenous, Continuous Infusion: Per Instructions PRN, Starting on 09/30/18 at 1413, Anesthesia Intra-op Rate/Dose Change 09/30/2018 2:30 PM CDT 100 mcg/kg/min 39.2 mL/hr Rate/Dose Change 09/30/2018 2:21 PM CDT 150 mcg/kg/min 58.8 mL/hr propofol bolus from bag (DIPRIVAN) Given 09/30/2018 2:35 PM CDT 20 mg As needed, Starting on 09/30/18 at 1413, Anesthesia Intra-op Given 09/30/2018 2:24 PM CDT 30 mg Given 09/30/2018 2:21 PM CDT 30 mg documented in this encounter Care Teams Manager Service Desk Relationship Specialty Start Date End Date Patricio Palmer M.D. PCP - General Family Medicine 12/18/[address] [place] [phone] documented as of this encounter
--- OUTSIDE RECORDS SUMMARY | 2022-02-22 12:35 | XMS_ITS | Encounter Summary ---
:1985 Author Organization [facility] Address [address] [place] [address] Care Team Providers Name Role Phone Patricio Palmer M.D. Primary Care Provider Encounter Details Date Type Department Care Team Description 09/30/2018 Ancillary Procedure Department of Neurology Social History [...] or relatives? How often do you attend restorationism or 1 to 4 times per year 05/18 spiritism services? Do you belong to any clubs or No 06/09/2021 organizations such as restorationism groups, unions, fraternal or athletic groups, or [...] at Date Recorded Female 06/09/2021 2:09 PM OXYGEN EQUIPMENT AIDE documented as of this encounter Plan of Treatment Not on filedocumented as of this encounter Procedures Procedure Name Priority Date/Time Associated Diagnosis Comme nts NEUROLOGY IMAGE Routine 09/30/2018 12:00 PM Resul ts for this EXAM CDT procedure are i n the results section. documented in this encounter Results sEEG Brain sEEG Electrode Placement-Neurology Image Exam (09/30/2018 12:00 PM CDT) Specimen (Source) Anatomical Location Collection Method / Collectio n Time Received Time / Laterality Volume Narrative IIMS - 10/08/2018 11:09 AM CDT This order has been created and [...] filedocumented in this encounter Care Teams Director Broadcast Relationship Specialty Start Date End Date Patricio Palmer M.D. PCP - General Family Medicine 12/18/[address] [place] [address] [phone] documented as of this encounter
--- OUTSIDE RECORDS SUMMARY | 2022-02-22 12:35 | XMS_ITS | Encounter Summary ---
:1985 Author Organization [facility] Address [address] [place] [address] Care Team Providers Name Role Phone Patricio Palmer M.D. Primary Care Provider Encounter Details Date Type Department Care Team Description 09/29/2018 Orders Only Department of Gianni Sanchez, Focal Ep ilepsy Neurology in M.D. 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 PCP - General Family Medicine 12/18/[address] [place] [phone] documented as of this encounter
--- OUTSIDE RECORDS SUMMARY | 2022-02-22 12:36 | XMS_ITS | Encounter Summary ---
:1985 Author Organization [facility] Address [address] [place] [address] Care Team Providers Name Role Phone Patricio Palmer M.D. Primary Care Provider Encounter Details Date Type Department Care Team Description 07/06/2018 Ancillary Procedure Department of Neurology Social History Tobacco Use Types Packs/Day Years Used Date Smoking Tobacco: Every Day Cigarettes 1.5 Smokeless Tobacco: Never Alcohol Use Standard Drinks/Week [...] at Date Recorded Female 06/09/2021 2:09 PM SURGICAL INSTRUMENT MECHANIC documented as of this encounter Plan of Treatment Not on filedocumented as of this encounter Procedures Procedure Name Priority Date/Time Associated Diagnosis Comme nts NEUROLOGY IMAGE Routine 07/06/2018 11:05 AM Resul ts for this EXAM SURGICAL INSTRUMENT MECHANIC procedure are i n the results section. documented in this encounter Results NEUROLOGY IMAGE EXAM (07/06/2018 11:05 AM SURGICAL INSTRUMENT MECHANIC) Specimen (Source) Anatomical Location Collection Method / Collectio n Time Received Time / Laterality Volume Narrative IIMS - 07/16/2018 3:32 PM SURGICAL INSTRUMENT MECHANIC This order has been created and auto-finalized [...] on filedocumented in this encounter Care Teams Job Specification Writer Relationship Specialty Start Date End Date Patricio Palmer M.D. PCP - General Family Medicine 12/18/[address] [place] [address] [phone] documented as of this encounter
--- OUTSIDE RECORDS SUMMARY | 2022-02-22 12:36 | XMS_ITS | Encounter Summary ---
:1985 Author Organization [facility] Address [address] [place] [address] Care Team Providers Name Role Phone Patricio Palmer M.D. Primary Care Provider Reason for Visit Outpatient (Routine) - Closed Specialty Diagnoses / Procedures Referred By Contact Refer red To Contact Neurological Surgery Diagnoses Focal Epilepsy Symptomatic Intractable Without Status Epilepticus (HCC) [facility] [address] [place] [address] Referral ID Status Reason Start Date Expiration Date Visits Requ ested Visits Authorized [id number] Closed 07/23/2018 07/23/2019 1 1 Encounter Details Date Type Department Care Team Description 08/10/2018 Comprehensive Visit Department of Zan Wise, Ramiro E pilepsy Neurologic Surgery MLevon Symptomatic in [place], [facility] [address] [facility] Intractable Without [place], [place] Status Epilepticus [address] [facility] [phone] (HCC) [place], [place] [phone] (Work) [phone] Social History Tobacco Use Types Packs/Day Years [...] at Date Recorded Female 06/09/2021 2:09 PM STRAIGHT KNIFE CUTTER 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 - 08/10/2018 3:00 PM CST SUBJECTIVE CHIEF COMPLAINT / REASON FOR VISIT Luisa Coulter is a 33 y.o. female who presents for evaluation of medically intractable seizures and discussion of intracranial monitoring . HISTORY OF PRESENT ILLNESS I am seeing the patient at the request of my colleague for medically intractable seizures and discussion of intracranial monitoring. The patient is here with her mother. I reviewed the medical record and discussed the case several times with Dr. Pickett. The patient has no or aura. Past Surgical History: Procedure Laterality Date ??? LAPAROSCOPIC SALPINGECTOMY Left 2014 ??? TONSILLECTOMY 2005 estimated year REVIEW OF SYSTEMS: Neurological: Positive for seizures and loss of consciousness. The following systems were negative: Constitutional, Skin, Eyes, ENT, CV, Respiratory, GI, , Hematologic, Musculoskeletal, Psych OBJECTIVE PHYSICAL EXAM Neurological Exam DIAGNOSTICS I have reviewed all of the radiographic imaging relevant in Q reads ASSESSMENT / PLAN #1 Focal Epilepsy Symptomatic Intractable Without Status Epilepticus (HCC) Plan: I have thoroughly discussed the diagnostic situation with the patient. I discussed the possibility of continuing on medication, implanting a VNS, or consideration of planting of an intracranial stimulator. We reviewed in detail intracranial monitoring. We discussed craniotomy for implantation of subdural grids and strips as well as SEEG. The advice is to proceed with SEEG. I discussed thoroughly the operative procedure, the operative goals, the possible outcomes, the potential complications. I have answered all of the patient and her mother's questions. They both expressed understanding and a strong desire to proceed. We will organized a surgical date. We discussed the team concept of surgical care aswell as the possibility of overlapping incisions. 40 min in [id number] time all used to debt counselor, coordinate care, plan follow-up. IGHT KNIFE CUTTER MACHINE documented in this encounter Plan of Treatment Not on filedocumented as of this encounter Visit Diagnoses Diagnosis 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) documented in this encounter Care Teams Fountain Manager Relationship Specialty Start Date End Date Patricio Palmer M.D. PCP - General Family Medicine 12/18/[address] [place] [phone] documented as of this encounter
--- OUTSIDE RECORDS SUMMARY | 2022-02-22 12:36 | XMS_ITS | Encounter Summary ---
:1985 Author Organization [facility] Address [address] [place] [address] Care Team Providers Name Role Phone Patricio Palmer M.D. Primary Care Provider Encounter Details Date Type Department Care Team Description 05/10/2018 Orders Only [facility] [place], Patricio Hernandez M.D. [facility], [address] [address] [place] [address] [phone] Social History Tobacco Use Types Packs/Day Years [...] or slept in a penitentiary (including now)? 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 PCP - General Family Medicine 12/18/[address] [place] [phone] documented as of this encounter
--- OUTSIDE RECORDS SUMMARY | 2022-02-22 12:36 | XMS_ITS | Encounter Summary ---
:1985 Author Organization [facility] Address [address] [place] [address] Care Team Providers Name Role Phone Patricio Palmer M.D. Primary Care Provider Reason for Visit Reason Onset Date Comments MRI results 07/19/2018 Pickett/MRI complete d/results Encounter Details Date Type Department Care Team Description 07/19/2018 Clinical Communication Department of Pickett, MRI results Neurology in Pietro Zuluaga M.D. (Pickett/MRI [address] completed/results) [place], [place] [address] [facility] [address] [place], [place] [phone] (Work) [phone] Social History Tobacco Use Types Packs/Day Years [...] at Date Recorded Female 06/09/2021 2:09 PM LIFE SKILLS CONSULTANT documented as of this encounter Miscellaneous Notes Telephone Encounter - Perla Siegel R.N. - 07/23/2018 10:[address] Pickett, Is there anything we can review with Luisa regarding her recent MRI? Perla Combs SKILLS CONSULTANT Telephone Encounter - Enrike Mackey M.D. - 07/19/2018 4:17 PM CST It would be necessary for him to discuss this with Dr. Pickett. SKILLS CONSULTANT Telephone Encounter - Perla Siegel R.N. - 07/19/2018 3:[address] Mackey, Anything we can review with patient about her MRI or do you prefer we wait until Dr. Pickett returnson Monday? Perla Combs SKILLS CONSULTANT Telephone Encounter - Pamella Stout - 07/19/2018 2:40 PM CST Patient is calling to report that she has completed the requested MRI and would like to know Dr. Pickett's findings and his recommendations for next step. Please call patient to discuss. Lauryn Can in the absence of Haylee SKILLS CONSULTANT documented in this encounter Plan of Treatment Not on filedocumented as of this encounter Visit Diagnoses Not on filedocumented in this encounter Care Teams Hogshead Weigher Relationship Specialty Start Date End Date Patricio Palmer M.D. PCP - General Family Medicine 12/18/[address] [place] [phone] documented as of this encounter
--- OUTSIDE RECORDS SUMMARY | 2022-02-22 12:36 | XMS_ITS | Encounter Summary ---
:1985 Author Organization [facility] Address [address] [place] [address] Care Team Providers Name Role Phone Patricio Palmer M.D. 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 [address] [place] [phone] Localization Related Radiology in Erick Pike, EKG MONITOR, CLAIMS ANALYST [address] [place] [address] Focal Partial [place], [place] Idiopathic Epilepsy [address] [facility] And Epileptic [place], [place] Syndromes With [address] Seizures Of Localized [phone] Onset Intractab le Without Status Epilepticus (HC C) Social History Tobacco Use [...] 1 to 4 times per year 05/18 oriental orthodox services? 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 Syndromes With Seizures Of Localized Onset Intractable Without Status Epilepticus (HCC) documented in this encounter Results CT Head Venogram Stereotactic SEEG with IV Contrast (09/24/2018 9:14 AM CDT) Anatomical Region Laterality Modality Head, Neuroradiology RST LOS, Neuroradiology ARZ LOS, N/A Computed Tomography Neuroradiology FLA LOS Specimen (Source) Anatomical Collection Method Collection Time Re ceived Time Location / / Volume Laterality 09/24/2018 9:28 AM CDT Impressions 09/24/2018 9:31 AM CDT IMPRESSION: No change given differences in technique. Stereotactic CT performed for preoperative planning purposes. Ofe fact from frame does mildly obscure fine detail. Superficial and deep venous sinu ses are patent without thrombosis. No acute intracranial findings. Narrative 09/24/2018 9:31 AM CDT EXAM: CT HEAD VENOGRAM STEREOTACTIC SEEG WITH IV CONTRAST COMPARISON: Stereotactic head MRI 2017 Procedure Note Carmen Hardin M.D. - 09/24/2018Formatt ing of this note might be different from the original. EXAM: CT HEAD VENOGRAM STEREOTACTIC SEEG WITH IV CONTRAST COMPARISON: Stereotactic head MRI 2017 IMPRESSION: No change given differences in technique. Stereotactic CT performed for preoperative planning purposes. Ofe fact from frame does mildly obscure fine detail. Superficial and deep venous sinu ses are patent without thrombosis. No acute intracranial findings. Zan iWse M.D. IMG CT PROCEDURES documented in this encounter Visit Diagnoses Diagnosis Localization Related Focal Partial Idiop athic Epilepsy And Epileptic Syndromes With Seizures Of Localized Onset Intractable Without Status Epilepticus (HCC) documented in this encounter Administered Medications Inactive Administered Medications - up to 3 most recent administrations Medication Order MAR Action Action Date Dose Rate Site iohexol 350 mg iodine/mL solution Given 09/24/2018 9:10 AM CDT 1 00 mL 1-200 mL (OMNIPAQUE) 1-200 mL, intravenous, Once in imaging, contrast, Starting on Mon09/24/18 at 0905, For 1 dose, Imaging Protocol Orders, Dose per Radiant Medication Guidelines sodium chloride (PF) 0.9 % injection 35 mL Given 09/24/2018 9:11 AM CDT 35 mL 35 mL, intravenous, Once, On Mon09/24/18 at 0915, For 1 dose documented in this encounter Care Teams Bridge Game Director Relationship Specialty Start Date End Date Patricio Palmer M.D. PCP - General Family Medicine 12/18/[address] [place] [phone] documented as of this encounter
--- OUTSIDE RECORDS SUMMARY | 2022-02-22 12:36 | XMS_ITS | Encounter Summary ---
:1985 Author Organization [facility] Address [address] [place] [address] Care Team Providers Name Role Phone Patricio Palmer M.D. Primary Care Provider Reason for Visit Outpatient (Routine) - Closed Specialty Diagnoses / Procedures Referred By Contact Refer red To Contact Neurology Diagnoses neuro Pietro Pickett M.D. [place] [address] [place] [address] Referral ID Status Reason Start Date Expiration Date Visits Requ ested Visits Authorized [id number] Closed 07/23/2018 07/23/2019 1 1 Encounter Details Date Type Department Care Team Description 08/10/2018 Office Visit Department of Pietro Pickett Focal Epil epsy Neurology in Pippa Zuluaga Symptomatic [place], [place] [address] [facility] Intractable Without [address] [place], [place] [address] ([facility]) (Primary Dx) [phone] Social History Tobacco Use Types Packs/Day Years [...] or relatives? How often do you attend zoroastrianism or 1 to 4 times per year 05/18 congregational services? Do you belong to any clubs or No 06/09/2021 organizations such as zoroastrianism groups, unions, fraternal or athletic groups, or [...] at Date Recorded Female 06/09/2021 2:09 PM ELECTRICIAN SUBSTATION documented as of this encounter Progress Notes Pietro Pickett M.D. - 08/10/2018 9:00 AM CST CHIEF COMPLAINT / REASON FOR VISIT Return for counseling about stereo EEG INTERIM HISTORY Patient is Continuing to have seizures with associated falls since last visit. She had a seizure week or so ago during which time she found herself on the floor in the kitchen. She has a very large contusion on her right upper lateral arm region. 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 I counseled the patient there is a 5% or less risk of infection or bleeding stroke etc. In my estimation there is a 50% chance we will identify a potential surgical option in a 50% chance that we will not identify a surgical solution for her problem. She understands this but remains healthfully hopeful that she will be found to have a solution. It is clear to me further medication trials are very unlikely to better her situation. Neuromodulation therapies could be available if she is not found to be a resection surgery candidate, these are FDA approved, howeverthe seizure-free rate is 10-15%. A preliminary plan was created on the [employer]. This will be reviewed by Dr. Wise and adjusted as appropriate. I explained to her this would be the 1st phase and would not lead directly to surgery during the same hospital stay. I estimated her recovery from stereo EEG would be 2-3 weeks. If she were to proceed with resected surgery the recovery would be approximately 6 weeks most likely depending on the surgical plan. Patient indicated she is not taking aspirin and does not tolerate it because of stomach upset. She does take ibuprofen occasionally. She has not taken any today. I told her to take none at all leading up to her surgery because of bleeding risk. TIME: [id number] time was 25 minutes with greater than 50% spent in counseling and coordination ofcare. TRICIAN SUBSTATION documented in this encounter Plan of Treatment Not on filedocumented as of this encounter Visit Diagnoses Diagnosis 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) - Primary documented in this encounter Care Teams Stoker Erector And Servicer Relationship Specialty Start Date End Date Patricio Palmer M.D. PCP - General Family Medicine 12/18/[address] [place] [phone] documented as of this encounter
--- OUTSIDE RECORDS SUMMARY | 2022-02-22 12:36 | XMS_ITS | Encounter Summary ---
:1985 Author Organization [facility] Address [address] [place] [address] Care Team Providers Name Role Phone Patricio Palmer M.D. Primary Care Provider Encounter Details Date Type Department Care Team Description 09/17/2018 Ancillary Procedure Department of Neurology Social History [...] or relatives? How often do you attend christianity or 1 to 4 times per year 05/18 scientologist services? Do you belong to any clubs or No 06/09/2021 organizations such as christianity groups, unions, fraternal or athletic groups, or [...] or slept in a jail (including now)? Sex Assigned at Date Recorded Female 06/09/2021 2:09 PM UNDERWATER HUNTER TRAPPER documented as of this encounter Plan of Treatment Not on filedocumented as of this encounter Procedures Procedure Name Priority Date/Time Associated Diagnosis Comme nts NEUROLOGY IMAGE Routine 09/17/2018 12:00 PM Resul ts for this EXAM UNDERWATER HUNTER TRAPPER procedure are i n the results section. documented in this encounter Results Brain-Neurology Image Exam (09/17/2018 12:00 PM UNDERWATER HUNTER TRAPPER) Specimen (Source) Anatomical Collection Method Collection Time Re ceived Time Location / / Volume Laterality 09/17/2018 12:00 PM UNDERWATER HUNTER TRAPPER Narrative [facility] - 09/17/2018 3:14 PM UNDERWATER HUNTER TRAPPER This order has been created and auto-finalized [...] on filedocumented in this encounter Care Teams Security Professionals Relationship Specialty Start Date End Date Patricio Palmer M.D. PCP - General Family Medicine 12/18/[address] [place] [phone] documented as of this encounter
--- OUTSIDE RECORDS SUMMARY | 2022-02-22 12:36 | XMS_ITS | Encounter Summary ---
:1985 Author Organization [facility] Address [address] [place] [address] Care Team Providers Name Role Phone Patricio Palmer M.D. Primary Care Provider Reason for Visit Reason Comments Dental Pain patient presents with right sided tooth pain as well as some right cheek swelling Encounter Details Date Type Department Care Team Description 07/18/2018 Emergency [facility] Chidi Caro, Clinton Espinoza (Primary Department P.A.-C. Dx) [facility] [address] [place] [address] [place] [phone] Social History Tobacco Use Types Packs/Day [...] place to sleep or slept in a usp (including now)? Sex Assigned at Date Recorded Female 06/09/2021 2:09 PM MEDICAL DIRECTOR OCCUPATIONAL HEALTH documented as of this encounter Last Filed Vital Signs Vital Sign Reading Time Taken Comments Blood Pressure 122/78 07/18/2018 8:38 AM MEDICAL DIRECTOR OCCUPATIONAL HEALTH Pulse 94 07/18/2018 8:38 AM MEDICAL DIRECTOR OCCUPATIONAL HEALTH Temperature 36.5 ??C (97.7 ??F) 07/18/2018 8:38 AM MEDICAL DIRECTOR OCCUPATIONAL HEALTH Respiratory Rate 18 07/18/2018 8:38 AM MEDICAL DIRECTOR OCCUPATIONAL HEALTH Oxygen Saturation 97% 07/18/2018 8:38 AM MEDICAL DIRECTOR OCCUPATIONAL HEALTH Inhaled Oxygen Concentration - - Weight - - Height - - Body Mass Index - - documented in this encounter Discharge Instructions AttachmentsThe following attachments cannot be sent through Care Everywhere. Dental Abscess Lvax-mb-Jugy (Macedonian)documented in this encounter Medications at Time of Discharge Medication Sig Dispensed Refills Start Date End Date ACETAMINOPHEN ORAL Take 500 mg by mouth 0 016 as needed. Takes 4 tablet (2,000mg total) by mouth as needed for headaches lamoTRIgine (LaMICtal) Take 2 tablets (200 120 tablet 5 02/1508/10/2018 100 mg tablet mg total) by mouth 2 (two) times a day. 1 three times daily for 1 week then 2 twice daily thereafter clindamycin (CLEOCIN) Take 1 capsule (300 40 capsule 0 07/1807/28/2018 300 mg capsule mg total) by mouth every 6 (six) hours for 10 days. lacosamide (VIMPAT) 100 Take 3 tablets (300 90 tablet 5 03/201810/29/2018 mg tablet mg total) by mouth as directed. 1 tab am, 2 tabs pm documented as of this encounter ED Notes Chidi Caro P.A.-C. - 07/18/2018 8:55 AM CST Images from the original note were not included. SUBJECTIVE: CHIEF COMPLAINT/REASON FOR VISIT: No chief complaint on file. HISTORY OF PRESENT ILLNESS: Patient presents to the emergency department chief complaint of dental pain and facial swelling. Patient states 3 days ago she started developing tenderness in to tooth 6. And has developed into facialswelling in same area. She denies any fever at this time. Patient states she is also due to have Neurosurgery in 3 weeks for seizure stimulator. And she has dental follow-up scheduled in 2 weeks. History provided by: Patient translator/interpreter needed/used: no Dental Pain Location: Upper Upper teeth location: 6/RU cuspid Quality: Aching, constant and pressure-like Severity: Moderate Onset quality: Gradual Duration: 3 days Timing: Constant Progression: Worsening Chronicity: New Context: abscess Relieved by: Nothing Worsened by: Cold food/drink and pressure Ineffective treatments: None tried Associated symptoms: facial pain, facial swelling and gum swelling Associated symptoms: no congestion, no difficulty swallowing, no fever, no headaches, no neck pain, no neck swelling, no oral bleeding, no oral lesions and no trismus Risk factors: periodontal disease REVIEW OF SYSTEMS: Constitutional: Negative for chills and fever. HENT: Positive for facial swelling. Negative for congestion, mouth sores, rhinorrhea, sinus pressure, sore throat and trouble swallowing. Eyes: Negative for daphne-orbital edema and visual disturbance. Respiratory: Negative for cough and chest tightness. Cardiovascular: Negative for chest pain. Gastrointestinal: Negative for abdominal pain. Genitourinary: Negative for frequency. Musculoskeletal: Negative for neck pain and extremity pain. Skin: Negative for wound. Allergic/Immunologic: Negative for immunocompromised state. Neurological: Negative for syncope and headaches. Hematological: Does not bruise/bleed easily. Psychiatric/Behavioral: Negative for confusion. ALLERGIES/MEDICATIONS: Reviewed in medical record PAST MEDICAL/FAMILY/SOCIAL HISTORY: Medical History: Past Medical History: Diagnosis Date ??? Conversion Disorder With Seizures Or Convulsions ??? Seizure ([facility]) Patient Active Problem List Diagnosis Date Noted ??? Focal Epilepsy Symptomatic Intractable Without Status Epilepticus ([facility]) 02/07/2018 ??? Leak Amniotic Fluid 11/21/2014 ??? Spontaneous Onset Of Labor After 37 Completed Weeks Of Gestation But Before 39 Completed Weeks Gestation With Delivery By Planned Section ([facility]) 11/21/2014 ??? High Risk 10/10/2012 ??? Stone Kidney 01/06/2012 ??? Nicotine Dependence Cigarettes Uncomplicated 01/06/2012 ??? 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 Other Psychoactive Substance Mild Use Disorder (Abuse) In Remission ([facility]) 02/19/2007 ??? 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 LAPAROSCOPIC SALPINGECTOMY Left 2014 ??? TONSILLECTOMY 2004 estimated year Family History: Reviewed in chart Social History: Social History Social History ??? Marital status: Single Spouse name: N/A ??? Number of children: N/A ??? Years of education: N/A Social History Main Topics ??? Smoking status: Current Every Day Smoker Packs/day: 1.50 Types: Cigarettes ??? Smokeless tobacco: Never Used ??? Alcohol use No ??? Drug use: No ??? Sexual activity: Yes Partners: Male control/ protection: None Other Topics Concern ??? Not on file Social History Narrative ??? No narrative on file History Alcohol Use No History Drug Use No OBJECTIVE: INITIAL VITAL SIGNS: Initial Vitals [07/18/18 0838] Temperature Pulse Rate Heart Rate Resp Rate Blood Pressure SpO2 36.5 ??C 94 -- 18 122/78 97 % Pain Score -- PHYSICAL EXAMINATION: Constitutional: She appears well-developed and well-nourished. HENT: Head: Nose: No nasal discharge. Mouth/Throat: Oropharynx is clear and moist. Mucous membranes are moist. No tonsillar exudate. Dental: Obvious dental caries present. Patient has swelling and tenderness to right cheek. She has several dental caries her active. Swelling that gingiva tooth 5,6,7. No sign of surface abscess formation. Eyes: EOM are normal. Pupils are equal, round, and reactive to light. Cardiovascular: Capillary refill: takes less than 3 seconds, Pulmonary/Chest: Effort normal and breath sounds normal. There is normal air entry. Musculoskeletal: Normal range of motion. Neurological: She is alert and oriented to person, place, and time. Skin: Skin is warm, dry and intact. Psychiatric: She has a normal mood and affect. Her behavior is normal. Judgment and thought content normal. Nursing note and vitals reviewed. ED COURSE: ED Course as of Jul 18 900 Wed Jul 18, 2018 [address]859 [address] patient antibiotics for the next several days. I did strongly advised her to contact her neurosurgery group to discuss her infection and possible operative complications. Final Diagnoses: as of Jul 18 900 Abscess Dental INTERVENTIONS: Medications - No data to display LABS: Labs Reviewed - No data to display ECG: RADIOLOGY: No orders to display ASSESSMENT AND PLAN: Impression and Plan Conditions considered dental caries, dental abscess, facial cellulitis. DIAGNOSIS: Final diagnoses: [K04.7] Abscess Dental ED DISCHARGE MEDS: ED Prescriptions Medication Sig Dispense Start Date End Date Auth. Provider clindamycin (CLEOCIN) 300 mg capsule Take 1 capsule (300 mg total) by mouth every 6 (six) hours for10 days. 40 capsule 07/18/2018 07/28/2018 Chidi Caro P.A.-C. DISPOSITION: Home or Self Senior Living or Self Care FOLLOW UP: Chidi Caro PA-C Emergency Medicine Chidi Caro P.A.-C. 07/18/18 0901 CAL DIRECTOR OCCUPATIONAL HEALTH documented in this encounter Plan of Treatment Not on filedocumented as of this encounter Visit Diagnoses Diagnosis Abscess Dental - Primary documented in this encounter Care Teams Microsoft Windows Engineer Relationship Specialty Start Date End Date Patricio Palmer M.D. PCP - General Family Medicine 12/18/[address] [place] [phone] documented as of this encounter
--- OUTSIDE RECORDS SUMMARY | 2022-02-22 12:36 | XMS_ITS | Encounter Summary ---
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 family. The patient has had no recorded seizures or events in the last 24 hours. Medications Scheduled Medication Dose/Rate, Route, Frequency Last Action nicotine 14 mg/24 hr 1 patch (NICODERM CQ) 1 patch, TD, Daily Medication Applied: 04/11 906 PRN Medication Dose/Rate, Route, Frequency Last Action nicotine 10 mg inhaler 1 puff (NICOTROL) 1 puff, inhl, PRN Given: 04/10 145 nicotine polacrilex gum 4 mg (NICORETTE) 4 mg, buccal, Q2H PRN Ordered OBJECTIVE VITAL SIGNS Blood pressure 110/69, pulse 87, temperature 36.6 ??C, temperature source Oral, resp. rate 16, height 158.8 cm, weight 58 kg, last menstrual period 03/29/2018, SpO2 96 %, not currently . EXAMINATION Neurologic: Awake and alert. Language is conversationally appropriate. Moves all extremities spontaneously and equally well. DIAGNOSTICS Lab results last 24 hours: Recent Results (from the past 24 hour(s)) AST (Aspartate Aminotransferase) Collection Time: 04/10/18 9:05 PM Result Value Aspartate Aminotransferase (AST), S 20 ALT (Alanine Aminotransferase) Collection Time: 04/10/18 9:05 PM Result Value Alanine Aminotransferase (ALT), S 18 Alkaline Phosphatase Collection Time: 04/10/18 9:05 PM Result Value Alkaline Phosphatase, S 83 Lacosamide (Vimpat), Level Collection Time: 04/10/18 9:05 PM Result Value Lacosamide, S 4.3 Lamotrigine Level Collection Time: 04/10/18 9:05 PM Result Value Lamotrigine, S 2.4 (L) CBC with Differential, Blood Collection Time: 04/10/18 9:05 PM Result Value Hemoglobin 13.4 Hematocrit 41.2 Erythrocytes 4.66 MCV 88.4 RBC Distrib Width 13.0 Platelet Count 265 Leukocytes 6.4 Neutrophils 2.62 Lymphocytes 2.99 Monocytes 0.60 Eosinophils 0.10 Basophils 0.08 Creatinine with Estimated GFR Collection Time: 04/10/18 9:05 PM Result Value Creatinine, S 1.07 (H) eGFR-Non Black 68 eGFR-Black 78 hCG (Human Chorionic Gonadotropin), Quantitative, Collection Time: 04/10/18 9:05 PM Result Value HCG, Quantitative, , S <0.5 Sodium Collection Time: 04/10/18 9:05 PM Result Value Sodium, S 140 I have reviewed the video EEG for the last 24 hours. BACKGROUND: The background contained occasional, moderate amplitude, symmetric 9-10 Hz posterior regions alpha activity. The patient fell asleep spontaneously during the recording, and adequate levels of sleep were attained. During sleep there were frequent symmetric V waves, sleep spindles, and K complexes. INTERICTAL DISCHARGES: Drowsiness and sleep showed activation of occasional generalized (maximal bilateral frontal) 3-5 Hz atypical spike and wave, polyspike and wave and bilateral frontal (maximal left and midline frontal) fragmentary spike and wave discharges and nonspecific activation of rare right benign sporadic sleep spikes (BSSS). CLINICAL EVENTS: There were no clinical events recorded. 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 Will stop lacosamide and lamotrigine and continue video EEG monitoring off antiepileptic medications to try to record typical seizures. TIME: Total time spent was 15 min with more than 50% in counseling and coordination of care. documented in this encounter H&P Notes Narendra Doe M.D. - 04/10/2018 11:48 AM CDT SUBJECTIVE CHIEF COMPLAINT / REASON FOR VISIT Luisa Coulter is a 33 y.o. right-handed female who presents for pre- surgical evaluation. HISTORY OF PRESENT ILLNESS I have reviewed the history and physical examination findings of Tara Bernabe APRN, ONCOLOGY RN ([phone]), and have personally seen and examined the patient. I agree with her documentation other than where indicated in my note. In summary, the patient has no history of problems, meningitis or encephalitis, febrile seizures as an or child, or significant head trauma. Her mother had alcohol-related seizures, and a half brother also had seizures. The patient started having seizures in 1985 at age 18 months. These were generalized convulsions without any aura, sometimes associated with biting her tongue or lips, and followed by confusion which could last for several hours. They could be brought on by sleep deprivation, missing a dose of medication, or stress. In addition to the convulsive seizures, in 1987 she also developed episodes of staring and unresponsiveness. The patient had an EEG which reportedly showed spike and wave activity. She was treated initially with valproic acid in 1985 but continued to have seizures at first. However her staring episodes stopped by 1993, and she stopped having convulsive seizures by 1994. In 1996 she stopped the valproic acid and remained seizure free for a while. In 1999 at age 15 she started having recurrent convulsive seizures. She was then put on carbamazepine XR. However she continued to have seizures which gradually increased in frequency to 1-2 times per week despite increasing the dose to 400 mg b.i.d., which caused grogginess. The patient was seen here in May 2015. An EEG showed dysrhythmia grade 3 generalized 3 Hz atypical spike and wave discharges as well as bifrontal and left frontal spike and wave discharges. An MRIhead scan showed a small curvilinear focus of FLAIR hyperintensity in the subcortical white matter of the anterior aspect of the left superior temporal lobe, which was considered nonspecific. 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 At that time she was started on lamotrigine and reached a dose of 100 mg b.i.d. while tapering off carbamazepine by July 2015. However she continued to have convulsive seizures about every 5 days. In August 2015 she was started on levetiracetam as well, reaching a dose of 500+750 mg per day. However this caused irritability. The patient underwent video EEG monitoring in the hospital from 09/16/2015 to 09/23/2015. This showed left temporal spikes and sharp waves and left TIRDA, and independent bifrontal spike and wave and polyspike and wave discharges. There were also moderate nonspecific bilateral temporal slow-wave abnormalities. During sleep there was additional activation of right temporal spikes and sharp waves. She also had 4 recorded generalized tonic-clonic seizures of indeterminate electrographic onset involvingprimarily the left hemisphere. It was thought that these were likely of extratemporal onset. At the end of the monitoring she was restarted on lamotrigine 100 mg b.i.d. and also started on lacosamide, but levetiracetam was not restarted. After that for a while the patient had a significant improvement in seizure frequency. However during periods of stress they increased in frequency to 4-5 times per month. The patient had an increase in seizure frequency in 2018 to about 1 per week. In February 2018 her dose of lamotrigine was increased to 200 mg b.i.d. The patient remains on lamotrigine 200 mg b.i.d. and lacosamide 100 mg b.i.d. and tolerates these without side effects. Since increasing the dose of lamotrigine, the patient had only one seizure about 3 weeks ago. The following portions of the patient's history were reviewed and updated as appropriate: allergies,current medications, family history, medical history, social history, surgical history and problem list. OBJECTIVE Blood pressure 114/56, pulse 61, temperature 36.6 ??C, resp. rate 16, height 158.8 cm, weight 58 kg,last menstrual period 03/29/2018, SpO2 95 %, not currently . PHYSICAL EXAM I agree with the exam findings as documented by Tara Bernabe APRN, CNP ([phone]). 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 Lacosamide level was 4.8 (therapeutic 1-10) and lamotrigine level was 2.0 (therapeutic 2.5-15). An MRI head scan using the 7 T magnet showed a stable nonspecific curvilinear area of T2/FLAIR signal abnormality in the subcortical white matter of the left superior temporal gyrus. There were no definite additional areas of signal abnormality. The hippocampal formations appeared normal. 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 A PET/CT scan of the brain showed no definite focal areas of hypometabolism. In summary, the patient has a long history of generalized convulsive seizures with EEGs showing multifocal and generalized abnormalities and previous monitoring suggesting extratemporal seizure onset, possibly left hemisphere but not very well localized. Her MRI head scan shows a nonspecific abnormality in the white matter, which is not likely to be a cause of seizures. Plan: For further evaluation, we will recheck blood tests including antiepileptic drug levels, and we willperform video/EEG monitoring in the hospital to try to record and localize her seizures for possiblesurgery. We will also try get an ictal SPECT scan and a subsequent interictal SPECT scan to aid in seizure localization. We will reduce the dose of lamotrigine to 100 mg b.i.d. and lacosamide to 50 mg b.i.d. She can also undergo exercise and sleep deprivation to facilitate recording seizures. Inpatient admission for EEG monitoring is necessary to ensure close monitoring due to the potential risks of seizures including status epilepticus, accidental injury, and SUDEP. The risk of medication withdrawal was discussed with patient, including seizure clusters and prolonged seizures which may need emergent treatment. Remainder per Tara Bernabe APRN, CNP ([phone]). Tara Bernabe APRN, C.N.P., M.S. - 04/10/2018 8:34 AM CDT Epilepsy Monitoring Unit Admission H&P SUBJECTIVE CHIEF COMPLAINT pre-surgical evaluation HISTORY OF PRESENT ILLNESS Ms. Coulter is a 33 y.o. right handed female . Patient is unaccompanied. Risk Factors: Family history of epilepsy (mom - from alcohol, half-brother - grand mals) Number of spells # 1 Event semiology: no warning, grand mal seizures since approximately 18 months old. She has been told the events start with a grunt and that she convulses for several minutes, and then she is confused for hours afterwards. She has never gone for more than a month without seizures. Event duration: a couple of minutes Event frequency: weekly, until Lamotrigine was increased Last episode was 3 weeks ago Associated symptoms: Loss of conciousness and Tongue biting (if rolled on the side). The patient hashad a significant lip trauma that required plastic surgery. Triggers: stress, lack of sleep, missing medications (not often, 1 per month) The patient has a history of staring spells, started around age 2, stopped in 4th or 5th grade. The patient denies myoclonic jerks. History of status epilepticus: No The following portions of the patient's history were reviewed and updated as appropriate: allergies,current medications, family history, medical history, social history, surgical history and problem list. Home Meds: Prescriptions Prior to Admission Medication Sig Last Dose ??? ACETAMINOPHEN ORAL Take 500 mg by mouth as needed. Takes 4 tablet (2,000mg total) by mouth as needed for headaches 04/09/2018 at 2200 ??? lacosamide (VIMPAT) 100 mg tablet Take 1 tablet (100 mg total) by mouth 2 (two) times a day. 04/10/2018 at 0600 ??? lamoTRIgine (LaMICtal) 100 mg tablet Take 2 tablets (200 mg total) by mouth 2 (two) times a day.1 three times daily for 1 week then 2 twice daily thereafter 04/10/2018 at 0600 Past AED medications: VPA (was started on valproate early in life, which was continued until age 12.She was seizure free for 2 years on Valproate. She did not have seizures apparently for several years off valproate, and then she has been on carbamazepine for approximately 15 years (started around age 15), reaching the dose of 400 mg twice a day (ineffective and groggy). Initially, it was felt that the patient has generalized epilepsy and she was stared on Lamotrigine in May 2015. Lamotrigine decreased seizures from 1-2 per week to once or twice per month. LEV added to Lamotrigine in August2015 (took for 1 month), reaching the dose of 500 mg bid. However, this caused irritability and Keppra was discontinued. Vimpat was started in addition to Lamotrigine in September,. Lamotrigine was increased in February,. This decreased the seizure frequency from recent weekly events to 1-2 per month. REVIEW OF SYSTEMS Pertinent items are noted in HPI; all other review of systems was negative. OBJECTIVE VITAL SIGNS Temperature: [36.6 ??C] 36.6 ??C Resp Rate: [16] 16 Blood Pressure: (113)/(72) 113/72 SpO2: [99 %] 99 % Height: [158.8 cm] 158.8 cm Weight: [58 kg] 58 kg BSA (Calculated - sq m): [1.6 sq meters] 1.6 sq meters BMI (Calculated): [23 kg/m??] 23 kg/m?? Pulse Rate: [71] 71 PHYSICAL EXAM For details of the neurologic examination, please see the neurologic examination form. Alert, follows commands, nystagmus on vertical and horizontal gaze, strength is grossly intact. Stable on feet. DIAGNOSTICS I have reviewed the Brain MRI and PET CT. Last Imaging Result PET CT BRAIN METABOLIC EVALUATION 03/23/2018 03/23/2018 12:38 PM Impression IMPRESSION: Normal FDG brain PET/CT. Last Imaging Result MR BRAIN WITHOUT IV CONTRAST 03/15/2018 03/15/2018 3:03 PM Impression IMPRESSION: Stable nonspecific signal abnormality in the superior left temporal lobe. EEG (Last result in the past 365 days) None Previous EMU: Yes, September 2015. The patient's EEG was abnormal due to the presence of bifrontal discharges. EEG monitoring showed for seizures each arising from the left hemisphere most likely but precise localization was not possible. One seizure showed left parietal onset, the 2nd seizure showed bifro ntal onset with spread to the left hemisphere, the 3rd seizure showed bifrontal onset with subsequent involvement of the left parietal and temporal region, the 4th seizure showed midline and bifrontal onset. ?? Routine EEG in May 2015 showed bifrontal discharges as well as left independent frontal discharges. ?? ASSESSMENT / PLAN Ms. Coulter is being admitted to Epilepsy Monitoring Unit for pre-surgical evaluation. Plan: - The patient will be sleep deprived - Other provoking mechanisms used: Yes - hyperventilation and photic stimulation - The patient must wear a harness / or be supervised when ambulatory and has agreed with this plan. - AED plan: Lacosamide 50 mg bid, Lamotrigine 100 mg bid - Rescue plan: Give 2 mg IV of Lorazepam if 2 GTCs in 12 hrs or 3 GTCs in 24 hrs, or a GTC greater than 5 minutes, or 6 partial seizures in 24 hours or a partial seizure greater than 10 minutes, always page on-call weight loss consultant or fellow For status epilepticus - always page on-call weight loss consultant or fellow; Lorazepam 2-4 mg IV, max 8 mg andlevetiracetam 60 mg/kg IV up to 4500 mg Status epilepticus care process models: [email or web address] Post Ictal Testing: Motor and Language Code Status: Full Code discussed with patient and family. Tara Bernabe APRN, C.N.P., M.S. 04/10/2018 documented in this encounter Consult Notes Pearl Billings R.N. - 04/11/2018 3:33 PM CDT Discharge Planning Assessment SUBJECTIVE Referral Data Who was present during the interview?: Patient, Significant other, Friend Quality Control Technician Services Used: No Patient Information Primary Caregiver: Self Support System: Immediate family, Friends Diet/Texture: By mouth Legal Information Legal Decision Maker: Self Caregiver Information Services Requested OBJECTIVE Functional Status (ADLs) Functional Status: Independent Assistive Devices: None Type of Residence: Private residence Level of Assistance: Independent Dressing: Independent Feeding: Independent Bathing: Independent Grooming: Independent Toileting: Independent Behavior: Oriented Communication: Understands speaking, Understands Greenlandic, Talks Environmental Supports Home Environment: Other (comment) (duplex) Anticipated Modifications to the Patient's Home: None Anticipated Needs/Assistive Devices ADL Anticipated Needs: None Equipment Anticipated Needs: None Transportation Needs: Support from family Finance/Insurance Primary insurance: [facility] Secondary insurance: N/A Income Information Does the Patient have any Financial Concerns?: No Income Source: Employed Discharge Planning Barriers To Discharge: None Strengths: Support of immediate family, Support of extended family/friends, Attitude of self, Ability to acquire knowledge Type of Residence: Private residence Support Systems: Significant other, Friends/neighbors Assistance Recommended after Discharge: None Home Care Services: No Anticipated Discharge Destination: Home or Self Care Does the patient need discharge transport arranged?: No Discussion: sap technical architect met with patient, explained my role and purpose, patient verbalized understanding. Patient currently lives in a multi-story duplex with significant other and 5yo & 3yo. She has no physical difficulty managing the stairs, but has some safety concerns about seizure occurring on stairs. She currently has no assistive devices or medical equipment in the home. She has no financial concerns at this time. She does not currently drive and relies on her significant other and friends for rides. She did not want any additional resources for transportation. We talked extensively about Service Dogs and she asked for some resources. I did an internet search for where to get a service dog andhow to get financial assistance to pay for the service dog. The cost can be anywhere from $15,000 to$50,000. The internet search information was given to the patient to follow up on. ASSESSMENT / PLAN Patient was resting comfortably in bed, had some concerns about safety at home when alone, but appears to be coping and planning for discharge appropriately for discharge to home self care. Plan custodian blood bank will continue to follow for any additional needs. Signed by: Pearl Billings R.N. 04/11/2018 Pearl Billings R.N. - 04/11/2018 3:24 PM CDTAssociated Order(s): IP CONSULT TO CARE MANAGEMENT SUBJECTIVE Referral received for advance directive. Met with patient, significant other and friend. Education provided on the benefits of completing an advance directive and resources that may assist them in thisprocess including access to a notary as well as provision of ???Advance Health Care Planning: MakingYour Wishes Known?? [id number] booklet. The patient, significant other and friend report no further questions or concerns regarding advance directives. OBJECTIVE Advance Directive provided. ASSESSMENT / PLAN ASSESSMENT The patient, significant other and friend appear to have an understanding of how to complete an advance directive and report awareness of resources to assist them. PLAN 1) Patient to complete an advance directive if desired. 2) Notary needs to witness signature, pulling unit floorhand can arrange. 3) Patient should provide a copy for the medical record once complete. 4) Social Work is available should further questions arise. Pearl Billings R.N. 04/11/2018 documented in this encounter Nursing Notes Zainab Arellano R.N. - 04/17/2018 11:52 AM CDT Goals: Clinical Goals for the Shift: Maintain Pt Safety Identify possible barriers to meeting goals/advancing plan of care: None Stability of the patient: Moderately Stable - Low risk of patient condition declining or worsening End of Shift Summary: Pt discharged to home, self-care. Accompanied by wheelchair escort. AVS and pteducation provided. Zainab Arellano R.N. - 04/17/2018 11:50 AM CDT Pt discharged to home, self-care. Accompanied by wheelchair escort. AVS and pt education provided. Margaret Vasquez R.N. - 04/16/2018 10:00 PM CDT Clinical Goals for the Shift: continue to monitor patient during seizures. Identify possible barriers to meeting goals/advancing plan of care: none Stability of the patient: Moderately Stable - Low risk of patient condition declining or worsening End of Shift Summary: Will continue to monitor patient during the evening or night nurse supervisor. Corina Garcia RRicha - 04/15/2018 8:31 PM CDT Goals: monitor spells, maintain safety Clinical Goals for the Shift: maintain safety Identify possible barriers to meeting goals/advancing plan of care: sz Stability of the patient: Moderately Stable - Low risk of patient condition declining or worsening End of Shift Summary: pt didn't have any spells on shift, call light and walking sling appropriate Cassandra Wilkins R.N. - 04/15/2018 4:42 AM CDT Goals: Clinical Goals for the Shift: maintain safety Identify possible barriers to meeting goals/advancing plan of care: none Stability of the patient: Moderately Stable - Low risk of patient condition declining or worsening End of Shift Summary: Pt. Remains calm and appropriate. Pt. Attempted sleep deprivation tonight. No spells this shift. Corina Garcia RYeyo. - 04/14/2018 8:40 AM CDT Goals: monitor spells, maintain safety Clinical Goals for the Shift: pt will remain safe, have needs met Identify possible barriers to meeting goals/advancing plan of care: sz Stability of the patient: Moderately Stable - Low risk of patient condition declining or worsening End of Shift Summary: no spells occurred on shift, call light and walking sling appropriate, all needs met at this time. Ho Mitchell M.A.N., R.N., BibS.R.N. - 04/14/2018 5:35 AM CDT Goals: Monitor for seizure and keep safe. Identify possible barriers to meeting goals/advancing plan of care: none Stability of the patient: Moderately Stable - Low risk of patient condition declining or worsening End of Shift Summary: Patient had one seizure to this time, no complaints of pain and all needs attended. Ho Mitchell M.A.N., R.N., BibSFlexR.N. - 04/14/2018 1:15 AM CDT Patient had a seizure at 0111H. She was asleep, laying to her left side and then started to turn herhead to right side. She moaned and then started to generalize at the same time when staff came in. Placed to her back as she tend to bite her tongue more when she is on her side. O2 Sat was at 97% though she had secretions and was suctioned for it. Oxygen was provided for support. This seizure lasted for 1 minute and 17 seconds. Tara Livingston R.N. - 04/13/2018 9:15 AM CDT DISCHARGE PLANNING ??? Patient discharge needs identified Progressing INFECTION - ADULT ??? Absence of infection during hospitalization Progressing KNOWLEDGE DEFICIT ??? Patient/family/caregiver demonstrates understanding of disease process, treatment plan, medications, and discharge instructions Progressing PAIN - ADULT ??? PT VERBALIZES/DEMONSTRATES ADEQUATE COMFORT LEVEL OR BASELINE Progressing SAFETY ADULT ??? Maintain a safe environment Progressing SAFETY ADULT - RISK FOR FALL AND OR FALL INJURY ??? Patient remains free from fall/fall injury Progressing SKIN/TISSUE INTEGRITY ??? Skin/Tissue integrity maintained or improved Progressing ??? Oral and Nasal mucous membranes remain intact Progressing Goals: Clinical Goals for the Shift: pt will remain safe, have needs met Identify possible barriers to meeting goals/advancing plan of care: None Stability of the patient: Moderately Stable - Low risk of patient condition declining or worsening End of Shift Summary: VSS. Patient reports no pain. Was sleep deprived over night, states no needs. No spells up to this time. oH Mitchell M.A.N., RRicha, BibS.R.N. - 04/13/2018 5:54 AM CDT Goals: Clinical Goals for the Shift: pt will remain safe Identify possible barriers to meeting goals/advancing plan of care: none Stability of the patient: Moderately Stable - Low risk of patient condition declining or worsening End of Shift Summary: Patient has no complaints made, all needs attended, no seizure overnight. Corina Garcia R.N. - 04/12/2018 8:22 AM CDT Goals: monitor spells, maintain safety Clinical Goals for the Shift: pt will remain safe Identify possible barriers to meeting goals/advancing plan of care: sz Stability of the patient: Moderately Stable - Low risk of patient condition declining or worsening End of Shift Summary: no spells during shift, pt remains cooperative with walking sling, call light appropriate Ho Mitchell M.A.N., Juan Manuel, C.M.S.R.N. - 04/12/2018 5:40 AM CDT Patient had a seizure around 2152H lasting for 1min and 42 seconds from the start of symptom. She was noticed to jerk after going back to bed from bathroom, stood up and was guided by the [employer] tech to bed then generalized for about 15secs. sats went down to 80s and needed an O2 mask support. Also, she needed to be suctioned for she had some secretions. No tongue biting was observed. No complaints of pain made by patient, all needs attended. Ho Mitchell M.A.N., Juan Manuel, BibSFlexRFlexN. - 04/11/2018 5:47 AM CDT Patient slept deprived, now awoke, no complaints made, all needs attended. Sheridan Pena R.N. - 04/10/2018 8:55 PM CDT Problem: INFECTION - ADULT Goal: Absence of infection during hospitalization Outcome: Adequate for Discharge Patient does not have any infections. Here for seizure evaluation. Comments: Goals: Clinical Goals for the Shift: pt will remain safe Identify possible barriers to meeting goals/advancing plan of care: no barriers. Stability of the patient: Moderately Stable - Low risk of patient condition declining or worsening End of Shift Summary: Patient is compliant with call light and walking sling. Patient will attempt to sleep deprive. Patient has no known infections and is here for possible SPECT scan. Sheridan Pena R.N. - 04/10/2018 6:21 PM CDT Problem: SAFETY ADULT Goal: Maintain a safe environment Outcome: Progressing Patient has been compliant with walking sling and calls before ambulation. Comments: Goals: Clinical Goals for the Shift: pt will remain safe Identify possible barriers to meeting goals/advancing plan of care: no barriers. Stability of the patient: Moderately Stable - Low risk of patient condition declining or worsening End of Shift Summary: Patient has not had seizures during shift. Patient is compliant with walking sling and call light appropriate. documented in this encounter Miscellaneous Notes Hospital Course - Enma Camacho APRN, C.NChloe, M.S.N. - 04/10/2018 1:18 PM CDT The patient was admitted to the epilepsy monitoring unit on April 10, 2018 for pre-surgical localization. Anti seizure medications were reduced and the patient was sleep deprived. We recorded a seizure without clear localization. Please see final EEG report for details. A SPECT scan was attempted but was unsuccessful as the patient needed to leave the hospital. The results of this admission will be presented at our upcoming epilepsy conference for consideration of epilepsy surgery. Approximately one week after the surgical conference, Dr. Pickett will contactyou with the results and his recommendations. The conference is tentatively scheduled for May 17, 2018. documented in this encounter Plan of Treatment Not on filedocumented as of this encounter Procedures Procedure Name Priority Date/Time Associated Comments Diagnosis EPILEPSY MONITORING UNIT Routine 04/17/2018 11:02 Focal Epilep sy Results for this (EMU) ADMISSION AM CDT Symptomatic procedure ar e in Intractable Without the resu lts Status Epilepticus section. (HCC) LACOSAMIDE, S Routine 04/10/2018 9:05 Results for this PM CDT procedure are i n the results section. LAMOTRIGINE LEVEL, S Routine 04/10/2018 9:05 Resu lts for this PM CDT procedure are i n the results section. CBC WITH DIFFERENTIAL, B Routine 04/10/2018 9:05 Results for this PM CDT procedure are i n the results section. HUMAN CHORIONIC Routine 04/10/2018 9:05 Results f or this GONADOTROPIN (HCG), PM CDT procedur e are in GABRIEL, the results section. ALANINE AMINOTRANSFERASE Routine 04/10/2018 9:05 Results for this (ALT), S/P PM CDT procedure are i n the results section. ASPARTATE Routine 04/10/2018 9:05 Results for this AMINOTRANSFERASE (AST), PM CDT proc edure are in S/P the results section. SODIUM, S/P Routine 04/10/2018 9:05 Results for this PM CDT procedure are i n the results section. ALKALINE PHOSPHATASE, Routine 04/10/2018 9:05 Res ults for this S/P PM CDT procedure are i n the results section. CREATININE WITH EGFR, Routine 04/10/2018 9:05 Res ults for this S/P PM CDT procedure are i n the results section. documented in this encounter Results Epilepsy monitoring unit (EMU) admission (04/17/2018 11:02 AM CDT) Specimen (Source) Anatomical Location Collection Method / Collectio n Time Received Time / Laterality Volume Narrative MMODAL - 04/18/2018 4:33 PM CDT EEG INTERPRETATION This computer-assisted prolonged video E EG recording is abnormal. 1. Two seizures, which appears to be dif fuse onset, possibly maximal left frontal. 2. Generalized atypical spike and wave, polyspike and wave, and bilateral frontal fragmentary spike and wave disch arges (maximal left and midline frontal) are recorded. 3. Occasional left midtemporal and parie to-posterior temporal fragmentary spike and wave discharges. 4. Moderate degree of slowing over the l eft temporal head region. 5. The nonspecific activation of benign sporadic sleep spikes (BSSS) is of no clinical significance. EEG CLASSIFICATION SPECIAL STUDY: ??Computer-assisted prolo nged video EEG. Dysrhythmia grade 3, two seizures diffus e onset, maximal left frontal. generalized atypical spike and wave, francesca yspike and wave, and bilateral frontal fragmentary spike and wave disch arges (maximal left and midline frontal) (awake). Independent left midtemoral, parieto-pos terior temporal and bilateral frontal spike and wave discharges (awake and sleep). Sleep ? increased activation of the above discharges and additional nonspecific activation of benign sporadi c sleep spikes (BSSS). Recorded two clinical events with EEG co rrelate ECG channel. EEG REPORT Computer-assisted prolonged video EEG mo nitoring was performed from 04/10/18 to 04/17/18. BACKGROUND: ??The background contained o ccasional, moderate amplitude, symmetric 9-10 Hz posterior regions alph a activity. There was occasional, moderate amplitude generalized (maximal left temporal) 3-4 Hz delta activity and 5-7 Hz theta activity that was accentuated by drowsiness. The patient fell asleep spontaneously du ring the recording, and adequate levels of sleep were attained. During sl eep there were frequent symmetric V waves, sleep spindles, and K complexes . Nonspecific activation of BSSS during sleep. INTERICTAL DISCHARGES: There were occasional, moderate to high amplitude generalized (maximal left frontal) 3-5 Hz atypical spike and wave, polyspike and wave, as well as occasional left midtemporal and left parieto-posterior temporal, and bilateral frontal fragmentary spike and wave discharges with no clinical accompaniment. Drowsiness and sleep show ed increased activation of epileptiform discharges. CLINICAL EVENTS: ??During the monitoring session, the patient had two seizures Seizure #1 occurred at 21:52:17 on 2017. ??This occurred during wakefulness. This was a typical event. T he duration was 1 min, 42 secs. This was characterized by staring, sitti ng up and getting out of bed, followed by vocalizing and left and righ t upper extremity flexion, followed by right head turning, left upp er extremity and lower extremity flexion and right upper extremity and lo wer extremity extension, followed by generalized clonic jerking, and after wards unresponsiveness and amnesia for the event. The EEG showed moderate t o high amplitude generalized (maximal bilateral frontal) 3-5 Hz atypi nicolette spike and wave discharges, possibly with a focal left and midline f rontal, left temporal and left parietal 5-6 Hz discharge at onset. That was followed by a moderate to high amplitude generalized 5-6 Hz theta frequency discharge, and subsequently significant movement and mu scle artifact. Postictally there was generalized attenuation of activity. ??The EKG during this showed tachycardia. ?? Seizure #2 occurred at 01:11:55 on 2017. ??This occurred during sleep. This was a typical ??event. The duration was 1 min, 18 secs. This was characterized by no clinical symptoms in itially, followed by crying out and right head turning, followed by gene ralized tonic-clonic activity, and afterwards unresponsiveness. The EEG justin wed high amplitude generalized (maximal left hemisphere) 7-8 Hz atypica l spike and wave discharges with polyspike components largely at F3/C3/T7 /P3. ??This evolved to a high amplitude generalized 3-4 Hz delta frequ ency discharge, that was followed by a low to moderate amplitude bilateral frontal discharge at F3, quickly spreading to Fz and F4 before generalizi ng into a convulsive seizure. A SPECT injection was not done because the isotope was not available at that time. The ECG channel was unremarkable. Dr. Odonnell reviewed the study and ag jodi with the interpretation. Pietro Pickett M.D. NEUROLOGY ORDERABLES Performing Organization Address [facility] Phon e Number MMODAL MMODAL NA Sodium (04/10/2018 9:05 PM CDT) athologist Signature Sodium, S 140 135 - 145 04/10/2018 [facility] mmol/L 10:00 PM CDT LABORATORIES - [facility] Specimen Anatomical Collection Method Collection Time Receive d Time (Source) Location / / Volume Laterality Blood (Blood, 04/10/2018 9:05 PM 04/10/20 18 9:32 Venous) CDT PM CDT Aislinn Santoro APRN.N.Vicenta., M.S. LAB BLOOD ADD-ON Performing Organization Address [facility] Phon e Number [facility] LABORATORIES - [address] hCG (Human Chorionic Gonadotropin), Quantitative, (04/10/2018 9:05 PM CDT) athologist Signature HCG, <0.5 IU/L 04/10/2018 [facility] Quantitative, 10:11 PM CDT LABORATORIES - , S [facility] Comment: ----REFERENCE VALUE---- <5.0 Negative 5.0-25.0 Indeterminate >25.0 Positive Specimen Anatomical Collection Method Collection Time Receive d Time (Source) Location / / Volume Laterality Blood (Blood, 04/10/2018 9:05 PM 04/10/20 18 9:32 Venous) CDT PM CDT Aislinn Santoro APRN.N.P., M.S. LAB BLOOD ADD-ON Performing Organization Address [facility] Phon e Number [facility] LABORATORIES - [address] [place] [address] [facility] (ABNORMAL) Creatinine with Estimated GFR (04/10/2018 9:05 PM CDT) [facility] Krave-N Method Time Signature Creatinine, S 1.07 (H) 0.59 - 04/10/2018 [facility] 1.04 10:00 PM CDT LABORATORIES - mg/dL [facility] eGFR-Non 68 >=60 04/10/2018 [facility] Black/ mL/min/BS 10:00 PM CDT LABORATORIES - [place] [facility] Comment: ----ADDITIONAL INFORMATION---- Estimated GFR calculated using the 2009 CKD_EPI creatinine equation. eGFR-Black/ 78 >=60 mL/min/BSA 04/10/2018 10:0 0 [facility] [place] PM CDT [facility]ATORIES - [facility] Comment: ----ADDITIONAL INFORMATION---- Estimated GFR calculated using the 2009 CKD_EPI creatinine equation. Specimen Anatomical Collection Method Collection Time Receive d Time (Source) Location / / Volume Laterality Blood (Blood, 04/10/2018 9:05 PM 04/10/20 18 9:32 Venous) CDT PM CDT Nupur Santoro APRNNBjorn., M.S. LAB BLOOD ADD-ON Performing Organization Address City/State/ZIP Code Phon e Number [facility] LABORATORIES - [address] [place] [address] [facility] CBC with Differential, Blood (04/10/2018 9:05 PM CDT) [facility] Krave-N Method Time Signature Hemoglobin 13.4 11.6 - 04/10/2018 [facility] 15.0 g/dL 9:38 PM CDT LAB[facility]ATORIES - [facility] Hematocrit 41.2 35.5 - 04/10/2018 [facility] 44.9 % 9:38 PM CDT [facility]ATORIES - [facility] Erythrocytes 4.66 3.92 - 04/10/2018 [facility] 5.13 9:38 PM CDT LABORATORIES - x10(12)/L [facility] MCV 88.4 78.2 - 04/10/2018 [facility] 97.9 fL 9:38 PM CDT LABORATORIES - [facility] RBC Distrib Width 13.0 12.2 - 04/10/2018 [facility] 16.1 % 9:38 PM CDT [facility]IES - [facility] Platelet Count 265 157 - 371 04/10/2018 [facility] x10(9)/L 9:38 PM CDT [facility] - [facility] Leukocytes 6.4 3.4 - 9.6 04/10/2018 [facility] x10(9)/L 9:38 PM CDT LAB[facility]ATORIES - [facility] Neutrophils 2.62 1.56 - 04/10/2018 [facility] 6.45 9:38 PM CDT LABORATORIES - x10(9)/L [facility] Lymphocytes 2.99 0.95 - 04/10/2018 [facility] 3.07 9:38 PM CDT LABORATORIES - x10(9)/L [facility] Monocytes 0.60 0.26 - 04/10/2018 [facility] 0.81 9:38 PM CDT LABORATORIES - x10(9)/L [facility] Eosinophils 0.10 0.03 - 04/10/2018 [facility] 0.48 9:38 PM CDT LABORATORIES - x10(9)/L [facility] Basophils 0.08 0.01 - 04/10/2018 [facility] 0.08 9:38 PM CDT LABORATORIES - x10(9)/L [facility] Specimen Anatomical Collection Method Collection Time Receive d Time (Source) Location / / Volume Laterality Blood (Blood, 04/10/2018 9:05 PM 04/10/20 18 9:32 Venous) CDT PM CDT Tara Bernabe APRN, C.N.P., M.S. LAB BLOOD ADD-ON Performing Organization Address City/State/ZIP Code Phon e Number [facility] LABORATORIES - [address] [place] [address] [facility] (ABNORMAL) Lamotrigine Level (04/10/2018 9:05 PM CDT) P athologist Signature Lamotrigine, S 2.4 (L) 2.5 - 15.0 04/11/2018 [facility] mcg/mL 11:51 AM CDT [facility] Comment: ----ADDITIONAL INFORMATION---- This test was developed and its performa nce characteristics determined by [facility] in a manner consistent with CLIA requirements. This test has not been cleared or approved by the [place] and Drug Administration. Specimen Anatomical Collection Method Collection Time Receive d Time (Source) Location / / Volume Laterality Blood (Blood, 04/10/2018 9:05 PM 04/11/20 18 8:27 Venous) CDT AM CDT Tara Bernabe APRN, C.N.P., M.S. LAB BLOOD NON ADD-ON Performing Organization Address City/[facility]/ZIP Code Phon e Number [facility] [address] [place] [address] [address] [place] [address] [facility] Lacosamide (Vimpat), Level (04/10/2018 9:05 PM CDT) athologist Signature Lacosamide, S 4.3 1.0 - 10.0 04/11/2018 [facility] mcg/mL 10:42 AM CDT [facility] Comment: ----ADDITIONAL INFORMATION---- This test was developed and its performa nce characteristics determined by [facility] in a manner consistent with CLIA requirements. This test has not been cleared or approved by the [place] and Drug Administration. Specimen Anatomical Collection Method Collection Time Receive d Time (Source) Location / / Volume Laterality Blood (Blood, 04/10/2018 9:05 PM 04/11/20 18 8:28 Venous) CDT AM CDT Tara Bernabe APRN, C.N.P., M.S. LAB BLOOD NON ADD-ON Performing Organization Address City/[facility]/ZIP Code Phon e Number [address] [place] [address] [facility] Alkaline Phosphatase (04/10/2018 9:05 PM CDT) athologist Signature Alkaline 83 37 - 98 04/10/2018 [facility] Phosphatase, S U/L 10:00 PM CDT [facility] Specimen Anatomical Collection Method Collection Time Receive d Time (Source) Location / / Volume Laterality Blood (Blood, 04/10/2018 9:05 PM 04/10/20 18 9:32 Venous) CDT PM CDT Tara Bernabe APRN, C.N.P., M.S. LAB BLOOD ADD-ON Performing Organization Address City/[facility]/ZIP Code Phon e Number [facility] LABORATORIES - [address] [place] [address] [facility] ALT (Alanine Aminotransferase) (04/10/2018 9:05 PM CDT) [facility] Method Time Signature Alanine 18 7 - 45 04/10/2018 [facility] Aminotransferase U/L 10:00 PM LABORATORIES - (ALT), S CDT [facility] Specimen Anatomical Collection Method Collection Time Receive d Time (Source) Location / / Volume Laterality Blood (Blood, 04/10/2018 9:05 PM 04/10/20 18 9:32 Venous) CDT PM CDT Tara Bernabe APRN, C.N.P., M.S. LAB BLOOD ADD-ON Performing Organization Address City/State/[facility] Code Phon e Number [facility] LABORATORIES - [address] [place] [address] [facility] AST (Aspartate Aminotransferase) (04/10/2018 9:05 PM CDT) [facility] Method Time Signature Aspartate 20 8 - 43 04/10/2018 [facility] Aminotransferase U/L 10:00 PM LABORATORIES - (AST), S CDT [facility] Specimen Anatomical Collection Method Collection Time Receive d Time (Source) Location / / Volume Laterality Blood (Blood, 04/10/2018 9:05 PM 04/10/20 18 9:32 Venous) CDT PM CDT Nupur Santoro APRNNBjorn., M.S. LAB BLOOD ADD-ON Performing Organization Address City/State/[facility] Code Phon e Number [facility] LABORATORIES - [address] documented in this encounter Visit Diagnoses Diagnosis 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) - Primary documented in this encounter Administered Medications Inactive Administered Medications - up to 3 most recent administrations Medication Order MAR Action Action Date Dose Rate Site acetaminophen tablet 650 mg Given 04/14/2018 2:09 PM CDT 650 mg Other (TYLENOL) 650 mg, oral, Every 4 hours PRN, headaches, Starting on 04/14/18 at 1359 lacosamide tablet 100 mg (VIMPAT) 100 mg, oral, 2 times daily, First dose on Mon04/17/18 at 2100 lacosamide tablet 200 mg (VIMPAT) Given 04/17/2018 10:01 AM CDT 200 mg 200 mg, oral, Once, On Mon04/17/18 at 0945, For 1 dose lacosamide tablet 50 mg (VIMPAT) Given 04/11/2018 9:06 AM CDT 50 mg 50 mg, oral, 2 times daily, First dose on Mon04/10/18 at 2100 Given 04/10/2018 9:22 PM CDT 50 mg lamoTRIgine tablet 100 mg (LaMICtal) Given 04/11/2018 9:06 AM CDT 100 mg 100 mg, oral, 2 times daily, First dose on Mon04/10/18 at 2100 Given 04/10/2018 9:22 PM CDT 100 mg lamoTRIgine tablet 200 mg (LaMICtal) Given 04/17/2018 10:01 AM CDT 200 mg 200 mg, oral, 2 times daily, First dose on Mon04/17/18 at 0945 LORazepam injection 2 mg (ATIVAN) 2 mg, intravenous, As needed, seizures, Starting on Mon04/11/18 at 2206, Give 2 mg IV of Lorazepam if 2 GTCs in 12 hrs or 3 GTCs in 24 hrs, or a GTC greater than 5 minutes, or 6 partial seizures in 24 hours or a partia l seizure greater than 10 minutes, always page on-call weight loss consultant or fellow For intravenous use, dilute with equal volume of 0.9% NS nicotine 10 mg inhaler 1 puff (NICOTROL) Given 04/17/2018 8:48 AM CDT 1 puff 1 puff, inhalation, As needed, smoking cessation, Starting on Mon04/10/18 at 0842, Inhale with continuous puffing over 20 minutes; Initial 6 to 16 cartridges per day; MAX 16 cartridges per day. Given 04/16/2018 12:56 PM CDT 1 puff Given 04/14/2018 8:32 PM CDT 1 puff nicotine 14 mg/24 hr 1 Medication Applied 04/17/2018 8:48 AM CDT 1 pa tch Left Arm patch (NICODERM CQ) 1 patch, transdermal, Administer over 24 Hours, Daily, First dose on Mon04/10/18 at 1315, Place on opposite arm as 21 mg ptach Medication Applied 04/16/2018 8:16 AM CDT 1 patch Right Arm Medication Applied 04/15/2018 9:39 AM CDT 1 patch Right Arm nicotine 21 mg/24 hr 1 Medication Applied 04/10/2018 9:51 AM CDT 1 pa tch Right Arm patch (NICODERM CQ) 1 patch, transdermal, Administer over 24 Hours, Daily, First dose on Mon04/10/18 at 0900 nicotine polacrilex gum 4 mg (NICORETTE) 4 mg, buccal, Every 2 hour PRN, smoking cessation, Starting on Mon04/10/18 at 1302, Chew gum slowly until it tingles, then park it between your cheek and gum; when tingle disappears, Repeat process until most of the tingle is gone (about 30 min). documented in this encounter Active and Recently Administered Medications Times are shown in CDT. Scheduled Medication Order 04/15/2018 04/16/2018 04/17/2018 lacosamide tablet 100 mg (VIMPAT) 100 mg, oral, 2 times daily, First dose on Mon04/17/18 at 2100 lacosamide tablet 200 mg (VIMPAT) (COMPLETED) 1001 (Given - Provider: Zainab Arellano R.N.) 200 mg, oral, Once, On Mon04/17/18 at 0945, For 1 dose lamoTRIgine tablet 200 mg (LaMICtal) 1001 (Given - Provider: Zainab Arellano R.N.) 200 mg, oral, 2 times daily, First dose on Mon04/17/18 at 0945 nicotine 14 mg/24 hr 1 patch (NICODERM CQ) 0821 (Medic ation Removed - Provider: Corina Garcia R.N.)0939 (Medication Applied - Provider: Corina Garcia R.N.) 0816 (Medication Applied - Provider: Avani Tsai R.N.)0859 (Medication Removed - Provider: Avani Tsai R.N.) 0816 (Medication Removed - Provider: Zainab Arellano R.N.)0848 (Medication Applied - Provider: Zainab Arellano R.N.)1239 (Due: Medication Removed - Provider: Discharge Provider, Automatic - Comment: Time automatically 1 patch, transdermal, Administer over 24 Hours, Daily, First dose on Mon04/10/18 at 1315, Place on opposite arm as 21 mg ptach adjusted from order being discontinued) PRN Medication Order 04/15/2018 04/16/2018 04/17/2018 acetaminophen tablet 650 mg (TYLENOL) 650 mg, oral, Every 4 hours PRN, headaches, Starting on Sat 04/14 at 1359 LORazepam injection 2 mg (ATIVAN) 2 mg, intravenous, As needed, seizures, Starting on Mon04/11/18 at 2206, Give 2 mg IV of Lorazepam if 2 GTCs in 12 hrs or 3 GTCs in 24 hrs, or a GTC greater than 5 minutes, or 6 partial seizures in 24 h ours or a partial seizure greater than 1 0 minutes, always page on-call weight loss consultant or fellow For intravenous use, dilute with equal volume of 0.9% NS nicotine 10 mg inhaler 1 puff (NICOTROL) 1256 (Given - Provider: Avani Tsai RFlexNFlex) 0848 (Given - Provider: Zainab Arellano R.N.) 1 puff, inhalation, As needed, smoking c essation, Starting on Mon04/10/18 at 0842, Inhale with continuous puffing over 20 minutes; Initial 6 to 16 cartridges per day; MAX 16 cartridges per day. nicotine polacrilex gum 4 mg (NICORETTE) 4 mg, buccal, Every 2 hour PRN, smoking cessation, Starting on Mon04/10/18 at 1302, Chew gum slowly until it tingles, then park it between your cheek and gum; when tingle disappears, Repeat process until most of the tingle is gone (about 30 min). documented in this encounter Care Teams Tank Riveter Relationship Specialty Start Date End Date Patricio Palmer M.D. PCP - General Family Medicine 12/18/[address] [place] [phone] documented as of this encounter
--- OUTSIDE RECORDS SUMMARY | 2022-02-22 12:36 | XMS_ITS | Encounter Summary ---
:1985 Author Organization [facility] Address [address] [place] [address] Care Team Providers Name Role Phone Patricio Palmer M.D. Primary Care Provider Encounter Details Date Type Department Care Team Description 06/05/[address] [facility] Pharmacy - Zan Bhatt M.D. [address] , [facility] 1 [address] [facility] [address] [place] [address] [phone] (Wo rk) Social History Tobacco Use Types [...] many times do you More than three teryr es a week 06/09/2021 talk on the phone with family, friends, or neighbors? How often do you get together with friends More than three t imes a week 06/09/2021 or relatives? How often do you attend mandaeism or 1 to 4 times per year 05/18 sabianism services? 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 PCP - General Family Medicine 12/18/[address] [place] [phone] documented as of this encounter
--- OUTSIDE RECORDS SUMMARY | 2022-02-22 12:36 | XMS_ITS | Encounter Summary ---
:1985 Author Organization [facility] Address [address] [place] [address] Care Team Providers Name Role Phone Patricio Palmer M.D. Primary Care Provider Reason for Visit Reason Comments Neurology Epilepsy Surgery Conference Encounter Details Date Type Department Care Team Description 05/25/2018 Documentation Department of Damien Yenug Neurology E pilepsy Neurology in , M.B.B.S. Surgery Confere [place], [place] [address] [place] [address] Social History Tobacco Use Types Packs/Day Years [...] slept in a skilled nursing (including now)? 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 - 05/25/2018 7:39 AM CST Surgical Epilepsy Conference Luisa Coulter case was presented by Dr. Damien Yeung at the Surgical Epilepsy Conference on 05/24/2018. The conference was attended by Dr. Pietro Pickett, Dr. Enrike Mackey, Dr. Alvaro Paul, Dr. Narendra Doe, Dr. Claudette Rodriguez from the Division of Epilepsy in Neurology. Dr. Lan Wise was present from the Department of Neurosurgery. Dr. 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 Seizure onset at 18 months. She has half brother and other relatives with seizures. Semiology per patient is generalized tonic clonic. No aura, post ictal confusion for several hours. Frequency once weekly until Lamotrigine increased, frequency once monthly since then. Duration couple of minutes. She had multiple falls due to these seizures resulting in injuries. She also had other episodes as a child consisting of staring and unresponsiveness starting at age 43 years old but then went away by age 9 while on medication. She had prior work up with MRI Brain 2014 showing small curvilinear focus Flair hyperintensity in subcortical white matter in anterior aspect of left superior temporal lobe. She was monitoring in EMU 2015 which showed independent left temporal, bifrontal and rare right temporal interictal discharges. She had four clinical seizures arising possibly from left hemisphere, but unable to further localize.One seizure left parietal onset, others with bifrontal onset with subsequent left hemisphere spread.She had PET CT Brain on 03/2018 which was normal. Current AEDs: LTG 200 mg bid, Vimpat 100 mg bid. Past AEDs include Valproic acid, Carbamazepine and Levetiracetam. The patient was monitored in the Epilepsy Monitoring Unit at [facility] from 04/10/18 - 04/17/18. Her interictal EEG was notable for generalized, bifrontal and left temporal interictal discharges. She had two clinical seizures recorded with semiology consisting of staring, vocalization, right head turning, bilateral upper/lower extremity flexion followed by figure of 4 sign with right upper/lower extremity extension, with subsequent generalized tonic clonic. Her EEG onset was quite diffuse with maximal bifrontal, and possible left hemisphere onset. SPECT injection was unsuccessful. Her MRI Brain and PET CT Brain were reviewed by Neuroradiologist. MRI Brain shows similar left superior temporal lobe subcortical white matter changes as seen previously. No other lesional cause for her epilepsy found. Localization: Semiology consistent with possible focal left hemispheric onset. EEG with generalized versus possible left hemispheric onset. Imaging finding mentioned above is probably not related to her seizures. It was the majority consensus that she should be considered for phase II monitoring with sEEG covering bifrontal, left mesiofrontal, left limbic implantation (temporal, insular, cingulate, orbitofrontal). The other option is Neurostimulation with VNS/DBS since we don???t have good localization except l ateralization to left hemisphere, this will have seizure reduction benefit but not seizure freedom. Due to her seizures being very debilitating, with focal semiology, it was the consensus to pursue intracranial monitoring to see if a focal resective area can be identified. Intracranial monitoring would focus on the left frontal but also include the left insula and temporal region; given bilateral interictal activity, right frontal regions would be included as well. It was also recommended to try to get MAGDALENE before phase II monitoring to help further in localization; however MAGDALENE reimbursement is often not covered by insurance so the feasibility of doing that will need to be explored. Dr Pickett will convey our recommendations to the patient. OM SHOE DESIGNER AND MAKER documented in this encounter Plan of Treatment Not on filedocumented as of this encounter Visit Diagnoses Not on filedocumented in this encounter Care Teams Corrugator Operator Helper Relationship Specialty Start Date End Date Patricio Palmer M.D. PCP - General Family Medicine 12/18/[address] [place] [phone] documented as of this encounter
--- OUTSIDE RECORDS SUMMARY | 2022-02-22 12:36 | XMS_ITS | Encounter Summary ---
:1985 Author Organization [facility] Address [address] [place] [address] Care Team Providers Name Role Phone Patricio Palmer M.D. Primary Care Provider Encounter Details Date Type Department Care Team Description 07/06/2018 Orders Only Department of Family Destiny Rivera [facility] [place], [facility] [place], in [address] [place] [phone] [address] [facility] [place] [address] Social History Tobacco Use Types Packs/Day Years [...] Date Recorded Female 06/09/2021 2:09 PM DIRECTOR DRUG documented as of this encounter Plan of Treatment Not on filedocumented as of this encounter Visit Diagnoses Not on filedocumented in this encounter Care Teams Revenue Stamper Relationship Specialty Start Date End Date Patricio Palmer M.D. PCP - General Family Medicine 12/18/[address] [place] [phone] documented as of this encounter
--- OUTSIDE RECORDS SUMMARY | 2022-02-22 12:36 | XMS_ITS | Encounter Summary ---
:1985 Author Organization [facility] Address [address] [place] [address] Care Team Providers Name Role Phone Patricio Palmer M.D. Primary Care Provider Reason for Visit Reason Onset Date Comments PA Request from covermymeds for Vimpat 100 mg 05/09/2018 Pietro Pickett Encounter Details Date Type Department Care Team Description 05/09/2018 Clinical Communication Department of KAMLA Pickett from Neurology in Pietro Zuluaga M.D. covermymeds for [place], [facility] [address] [facility] Vimpat 100 mg [place], [place] (Pietro Pickett) [address] [facility] [phone] [place], [place] [phone] (Work) [phone] Social History Tobacco Use Types Packs/Day Years [...] or relatives? How often do you attend rastafarian or 1 to 4 times per year 05/18 religion services? 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 I have faxed this request over to [facility]. RDOUS MATERIALS TANKER DRIVER Telephone Encounter - Mirian Wilburn - 05/16/2018 8:55 AM CDT Received another fax from [employer] on 05/16/18. This has also been forwarded to [facility]. Telephone Encounter - Mirian Wilburn - 05/09/2018 10:25 AM CDT Fax received from [employer] requesting PA for patient's Vimpat 100 mg. Sheet faxed to [facility] forcompletion. documented in this encounter Plan of Treatment Not on filedocumented as of this encounter Visit Diagnoses Not on filedocumented in this encounter Care Teams Quality Control Operator Relationship Specialty Start Date End Date Patricio Palmer M.D. PCP - General Family Medicine 12/18/[address] [place] [address] [place] [phone] documented as of this encounter
--- OUTSIDE RECORDS SUMMARY | 2022-02-22 12:36 | XMS_ITS | Encounter Summary ---
:1985 Author Organization [facility] Address [address] [place] [address] Care Team Providers Name Role Phone Patricio Palmer M.D. Primary Care Provider Encounter Details Date Type Department Care Team Description 07/24/2018 Documentation Department of Neurology in [place], [place] M.B.B.S. [address] [place] [phone] Social History Tobacco Use Types Packs/Day [...] or slept in a [facility] (including now)? 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 Pickett (Present) Neurosurgeon: Unknown Fellow: Dr. Yeung (present) Additional staff involved in planning: Dr. Odonnell, Dr. Hood Date planned: 07/24/18 Planned on SEEG-MRI: Yes Reviewed MAGDALENE, MRI and EMU recordings 2015 and 2017 Seizures: 09/17/15 23:42 - P3, F3 T7 maximum at onset; restless, then forced head turn to right 09/18/15 02:23 - P3, F3, FZ F4,T7 maximum at onset, restless then forced head turn to right 09/18/15 13:31 - F3, FZ, F4, FP1 maximum at onset, restless then forced head turn to right 09/18/15 20:22 - F3,FZ,F2 maximum at onset, occurred off video 04/11/18 21:52 - F3,P3,FZ,F4,T7 maximum at onset, restless out of bed and turns head right 04/14/18 01:11 - F3,P3,Fz,F4,FP1 maximum at onset, turns head right Hypothesis: left hemispheric (EEG - left parietotemporal and bifrontal; MRI left superior ant temporal, MAGDALENE interictal left posterior inferior temporal) Implantation scheme: 1 LF Frontopolar 2 LE Frontal eye field / Ant Cingulate 3 LY Mid Cingulate 4 LZ Posterior cingulate 5 LA-B Head of hippocampus/ Amygdala (Cover MAGDALENE interictal) 6 LC Tail of hippocampus (Cover MAGDALENE interictal) 7 LP Posterior Insula / Superior frontal gyrus 8 LQ Sup Parietal/Precuneous 9 LT Sup temporal (MRI Brain lesion) 10 RX Frontopolar / Ant Cingulate 11 RE Frontal eye field / Ant Cingulate 12 RAB Head of Hippocampus / Amygdala Total number of electrodes: 12 TAIL LOUNGE MANAGER documented in this encounter Plan of Treatment Not on filedocumented as of this encounter Visit Diagnoses Not on filedocumented in this encounter Care Teams Fast Food Team Member Relationship Specialty Start Date End Date Patricio Palmer M.D. PCP - General Family Medicine 12/18/[address] [place] [phone] documented as of this encounter
--- OUTSIDE RECORDS SUMMARY | 2022-02-22 12:36 | XMS_ITS | Encounter Summary ---
:1985 Author Organization [facility] Address [address] [place] [address] Care Team Providers Name Role Phone Patricio Palmer M.D. Primary Care Provider Encounter Details Date Type Department Care Team Description 07/25/2018 Orders Only Department of Pietro Pickett Focal Epil yonny Neurology in [place] Symptomatic [place], [place] [address] [facility] Intractable Without [address] [place], [place] [address] (HCC) (Primary Dx) [phone] Social History Tobacco Use Types Packs/Day Years [...] 1 to 4 times per year 05/18 mandaen services? 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 PCP - General Family Medicine 12/18/[address] [place] [phone] documented as of this encounter
--- OUTSIDE RECORDS SUMMARY | 2022-02-22 12:36 | XMS_ITS | Encounter Summary ---
:1985 Author Organization [facility] Address [address] [place] [address] Care Team Providers Name Role Phone Patricio Palmer M.D. Primary Care Provider Encounter Details Date Type Department Care Team Description 06/05/2018 Orders Only [facility] Pharmacy - Zan Bhatt M.D. 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 PCP - General Family Medicine 12/18/[address] [place] [phone] documented as of this encounter
--- OUTSIDE RECORDS SUMMARY | 2022-02-22 12:36 | XMS_ITS | Encounter Summary ---
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 0.2 mg (NARCAN) 1410 ([facility] Hold - Provider: Transfer Provider, Automatic - Reason: Patient not available)1459 ([facility] Unhold - Provider: Prosper Alegria M.D.) 0.2 mg, intravenous, As needed, respirat ory depression, Starting Mon09/24/18 at 1338, For respiratory rate less than 8 breaths per minute or RASS score of -3, - 4, -5. Apply oxygen to keep oxygen saturations greater than 90% and notify service. nicotine 10 mg inhaler 1 puff (NICOTROL) 1410 ([facility] Hold - Provider: Transfer Provider, Automatic - Reason: Patient not available)1459 ([facility] Unhold - Provider: Prosper Alegria M.D.) 1 puff, inhalation, As needed, smoking c essation, Starting on Mon09/25/18 at 1639, Inhale with continuous puffing over 20 minutes; Initial 6 to 16 cartridges per day; MAX 16 cartridges per day. oxyCODONE IR tablet 10 mg (ROXICODONE) 1 350 (Given - Provider: Too Almeida, R.N.)1410 ([facility] Hold - Provider: Transfer Provider, Automatic - Reason: Patient not available)1459 ([facility] Unhold - Provider: Prosper Alegria M.D.)1802 (Given - Provider: Angelique Banuelos, R.N.) 0305 (Given - Provider: Sara Garcia [...] 2100 documented in this encounter Care Teams Human Resources Executive Relationship Specialty Start Date End Date Patricio Palmer M.D. PCP - General Family Medicine 12/18/[address] [place] [phone] documented as of this encounter
--- OUTSIDE RECORDS SUMMARY | 2022-02-22 12:36 | XMS_ITS | Encounter Summary ---
:1985 Author Organization [facility] Address [address] [place] [address] Care Team Providers Name Role Phone Patricio Palmer M.D. Primary Care Provider Reason for Visit Reason Onset Date Comments Phone call 06/04/2018 Encounter Details Date Type Department Care Team Description 06/04/2018 Clinical Communication Department of Pietro Pickett Phone call Neurology in [place], [place] [address] [facility] [address] [place] [phone] Social History Tobacco Use Types Packs/Day Years [...] at Date Recorded Female 06/09/2021 2:09 PM SAND FILLER documented as of this encounter Miscellaneous Notes Telephone Encounter - Perla Siegel R.N. - 06/05/2018 8:35 AM CST I advised Luisa per Dr. Pickett that the MAGDALENE ordering is in process. His special education secretary forwarded theinformation they require to Dr. Dickens at [facility] in [place]. They should be in contact with her. Unfortunately, since this is an outside test it takes longer. FILLER Telephone Encounter - Bertin Sena R.N. - 06/04/2018 10:[address] Pickett, Patient is inquiring about scheduling the next phase of her testing. I see you have the SEEG MRI ordered and your note mentioned trying to coordinate a MAGDALENE in [place], however, this may be next month. Would you have any update we could provide or would NS need to assist with coordinating? Thanks! FILLER Telephone Encounter - Mica Sena - 06/04/2018 8:35 AM CST Patient is calling and states she was supposed to be contacted last week about when she is going to have surgery but has not heard anything yet. She said she needs to let her boss know when this will be. I said I would send a messages because I didn't see anything specific in the notes yet. She would like a call back at the number she called in on. ThanksMica FILLER documented in this encounter Plan of Treatment Not on filedocumented as of this encounter Visit Diagnoses Not on filedocumented in this encounter Care Teams Refrigerator Repairman Relationship Specialty Start Date End Date Patricio Palmer M.D. PCP - General Family Medicine 12/18/[address] [place] [phone] documented as of this encounter
--- OUTSIDE RECORDS SUMMARY | 2022-02-22 12:36 | XMS_ITS | Encounter Summary ---
:1985 Author Organization [facility] Address [address] [place] [address] Care Team Providers Name Role Phone Patricio Palmer M.D. Primary Care Provider Reason for Visit Reason Comments Med Refill Encounter Details Date Type Department Care Team Description 09/05/2018 Refill Department of Neurology in [place] Pietro sheikh M.D. Med Refill [place], [place] [address] [facility] [address] [place] [address] [place] [address] [phone] Social History Tobacco Use Types Packs/Day Years [...] or relatives? How often do you attend restorationist or 1 to 4 times per year 05/18 quaker services? 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 PCP - General Family Medicine 12/18/[address] [place] [phone] documented as of this encounter
--- OUTSIDE RECORDS SUMMARY | 2022-02-22 12:36 | XMS_ITS | Encounter Summary ---
:1985 Author Organization [facility] Address [address] [place] [address] Care Team Providers Name Role Phone Patricio Palmer M.D. 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 [place] [facility] Procedures MR Brain with IV Contrast MR Brain without and with IV Contrast AR MRI BRAIN WO/W CNTRST HC MRI BRAIN WO/W CNTRST AR MRI BRAIN W CNTRST [address] [place] [address] Referral ID Status Reason Start Date Expiration Date Visits Requ ested Visits Authorized [id number] Closed 07/04/2018 07/04/2019 1 1 Encounter Details Date Type Department Care Team Description 07/16/2018 Hospital Encounter Department of Pietro Pickett epsy Seizure Not Radiology in [place] Intractable Without [address] Status Epilepticus [place], [place] (HCC) [address] [place] [phone] [place], [place] [phone] (Work) [phone] Social History Tobacco Use Types Packs/Day Years [...] or relatives? How often do you attend holiness or 1 to 4 times per year 05/18 presybeterian services? Do you belong to any clubs or No 06/09/2021 organizations such as holiness groups, unions, fraternal or athletic groups, or [...] at Date Recorded Female 06/09/2021 2:09 PM OIL SPOT WASHER documented as of this encounter Last Filed Vital Signs Vital Sign Reading Time Taken Comments Blood Pressure - - Pulse - - Temperature - - Respiratory Rate - - Oxygen Saturation - - Inhaled Oxygen Concentration - - Weight 57.6 kg (127 lb) 07/16/2018 11:49 AM OIL SPOT WASHER Height 158.8 cm (5' 2.52) 07/16/2018 11:49 AM OIL SPOT WASHER Body Mass Index 22.84 07/16/2018 11:49 AM OIL SPOT WASHER documented in this encounter Medications at Time of Discharge Medication Sig Dispensed Refills Start Date End Date ACETAMINOPHEN ORAL Take 500 mg by mouth 0 016 as needed. Takes 4 tablet (2,000mg total) by mouth as needed for headaches lacosamide (VIMPAT) 100 Take 3 tablets (300 90 tablet 5 03/201810/29/2018 mg tablet mg total) by mouth as directed. 1 tab am, 2 tabs pm lamoTRIgine (LaMICtal) Take 2 tablets (200 120 tablet 5 02/1508/10/2018 100 mg tablet mg total) by mouth 2 (two) times a day. 1 three times daily for 1 week then 2 twice daily thereafter documented as of this encounter Plan of Treatment Not on filedocumented as of this encounter Procedures Procedure Name Priority Date/Time Associated Comments Diagnosis MR BRAIN WITH IV RAD - Routine 07/16/2018 12:14 Epilepsy Seizure Re sults for this CONTRAST (most inpatients PM OIL SPOT WASHER Not Intractable procedur e are in and all Without Status the results outpatients) Epilepticus (HCC) section. documented in this encounter Results MR Brain with IV Contrast (07/16/2018 12:14 PM OIL SPOT WASHER) Anatomical Region Laterality Modality Head, Brain, Neuroradiology RST LOS, Neuroradiology ARZ N/A Magnetic Resonance LOS, Neuroradiology FLA LOS Specimen (Source) Anatomical Collection Method Collection Time Re ceived Time Location / / Volume Laterality 07/16/2018 1:49 PM OIL SPOT WASHER Impressions 07/16/2018 1:54 PM OIL SPOT WASHER IMPRESSION: Postcontrast images performed for surgical planning purposes using the SEEG protocol show no abnormal enhan cement. The nonspecific T2 signal within the superior left anterior temporal lobe seen on 03/15/2018 are not evaluated today. Narrative 07/16/2018 1:54 PM OIL SPOT WASHER EXAM: MR BRAIN WITH IV CONTRAST COMPARISON: Brain MRI 03/15/2018 Procedure Note Claudio Riojas M.D. - 07/16/2018Formatt ing of this note might be different from the original. EXAM: MR BRAIN WITH IV CONTRAST COMPARISON: Brain MRI 03/15/2018 IMPRESSION: Postcontrast images performe d for surgical planning purposes using the SEEG protocol show no abnormal enhan cement. The nonspecific T2 signal within the superior left anterior temporal lobe seen on 03/15/2018 are not evaluated today. Pietro Pickett M.D. 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 PCP - General Family Medicine 12/18/[address] [place] [phone] documented as of this encounter
--- OUTSIDE RECORDS SUMMARY | 2022-02-22 12:36 | XMS_ITS | Encounter Summary ---
:1985 Author Organization [facility] Address [address] [place] [address] Care Team Providers Name Role Phone Patricio Palmer M.D. Primary Care Provider Reason for Visit Reason Onset Date Comments Post Hospital Follow-up 04/18/2018 Encounter Details Date Type Department Care Team Description 04/18/2018 Clinical Communication Department of [facility] Medicine, A, R.N. Follow-up [facility], [place] [phone] [place], [place] (Work) [address] [place] [phone] Social History Tobacco Use Types Packs/Day [...] or relatives? How often do you attend pentecostal or 1 to 4 times per year 05/18 hoahaoism services? Do you belong to any clubs or No 06/09/2021 organizations such as pentecostal groups, unions, fraternal or athletic groups, or [...] at Date Recorded Female 06/09/2021 2:09 PM TAR WORKER documented as of this encounter Miscellaneous Notes Telephone Encounter - Nancie Ayers R.N. - 04/18/2018 9:32 AM CDT SUBJECTIVE REASON FOR CALL Post-Hospital follow-up phone call with patient after Luisa Coulter discharge on 04/17 for planned epilepsy monitoring . General Health Luisa Coulter notes today she is feeling as expected, planned procedure to cause/monitor seizures. Patient confirms that the condition for which she was admitted has resolved. Home management assessment post discharge: Patient states she has no questions or concerns. Actions taken: none Infection related to a resistant organism: no Surgical/Procedural Follow-up Medication Status Medication status assessment: n/a as there are no new medications Medication management: Patient states medication is self managed. MTM Referral warranted: no Patient's understanding of medication's side effects: no new medications. Medications concerns: none Is patient taking any of the following: Controlled substances: no Taking as instructed: n/a Experiencing side effects: n/a Antibiotics: no Labs scheduled: n/a Taking as instructed:n/a Experiencing side effects: n/a Diabetic medications: no Type: n/a Home glucose monitoring: n/a Difficulties managing diabetes since discharge: n/a Anticoagulants: no Type: n/a Taking as instructed: n/a Signs/symptoms of bleeding or clotting: n/a Home INR monitoring: n/a Medication management provider: n/a Home Care/Equipment Home care ordered: no Activities of Daily Living Has activities of daily living changed since hospitalization: no Ambulation Has ambulation changed since hospitalization: no Difficulty ambulating: no Follow-Up Appointment Follow-up appointment scheduled? no Date of appointment: n/a Does patient plan to go to the appointment?: no follow up scheduled Concerns about getting to the appointment: issues getting to your appointment: n/a General Care and Feedback Actions: none Post-Hospital Assessment: Areas for hospital feedback: Post hospital near miss assessment: none Patient reports no seizure activity since discharge. She has restarted all medications and has no questions or concerns today. documented in this encounter Plan of Treatment Not on filedocumented as of this encounter Visit Diagnoses Not on filedocumented in this encounter Care Teams Carding Utility Tender Relationship Specialty Start Date End Date Patricio Palmer M.D. PCP - General Family Medicine 12/18/[address] [place] [phone] documented as of this encounter
--- OUTSIDE RECORDS SUMMARY | 2022-02-22 12:36 | XMS_ITS | Encounter Summary ---
:1985 Author Organization [facility] Address [address] [place] [address] Care Team Providers Name Role Phone Patricio Palmer M.D. Primary Care Provider Reason for Visit Reason Comments Seizures Encounter Details Date Type Department Care Team Description 05/25/2018 Documentation Department of Neurology in [place], Seizures [place], [place] [address] [facility] [address] [place] [address] [place], [place] [phone] (Wo rk) Social History Tobacco Use Types [...] at Date Recorded Female 06/09/2021 2:09 PM BRAND COORDINATOR documented as of this encounter Progress Notes Pietro Pickett M.D. - 05/25/2018 9:03 AM CST Contacted patient by phone. Discussed results of epilepsy surgery conference. A conference it was recommended to proceed with intracranial monitoring to see if a left hemispheric seizure focus could beidentified. Depending on results a trial of sub threshold stimulation could be considered while in hospital potentially but this will depend on findings. Discussed that intracranial monitoring with stereo EEG would have a 50% chance of identifying a potential surgical focus, and a 50% chance of not being successful. I indicated it would have a 5% or less risk of infection or bleeding. Indicated she likely would have her hair shaved to get the stereo EEG performed. She needs to stereo MRI which I will arrange. It was recommended at conference to pursue MAGDALENE which I will try to arrange at [place]. I explained that after that we would need to have a planning meeting. I told her realistically it would be a month before we would be able to proceed and potentially slightly longer. She share with me she had another seizure last night. That was the 1st since leaving the monitoring unit. I increased her Vimpat to 100 mg morning 200 mg at night. D COORDINATOR documented in this encounter Plan of Treatment Not on filedocumented as of this encounter Visit Diagnoses Not on filedocumented in this encounter Care Teams Family And Consumer Sciences Teacher Relationship Specialty Start Date End Date Patricio Palmer M.D. PCP - General Family Medicine 12/18/[address] [place] [phone] documented as of this encounter
--- OUTSIDE RECORDS SUMMARY | 2022-02-22 12:36 | XMS_ITS | Encounter Summary ---
:1985 Author Organization [facility] Address [address] [place] [address] Care Team Providers Name Role Phone Patricio Palmer M.D. Primary Care Provider Reason for Visit Reason Onset Date Comments Test results and affects of meds during her 2017 Pietro Pickett Encounter Details Date Type Department Care Team Description 04/25/2018 Clinical Communication Department of [place], Test results and Neurology in Pietro Zuluaga M.D. 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 - 04/27/2018 1:30 PM CDT INFORMATION DISCUSSED I advised Luisa Pickett that one study has raised the question whether exposure tolamotrigine through the mother could be associated with autism. However other studies have shown lamotrigine to be relatively safe for the developing baby compared to other seizure medications. A link to the article finding an increase risk is found here: https://www.ncbi.nlm.nih.gov/pubmed/88430869 There are other causes of autism as well; in man patients the cause is never found. If her child is suspected of having autism, he can arrange for her daughter to be seen in our pediatric neurology division. He can't find data on a link with lacosamide. PLAN Education: patient/caller able to teach back Caller agreeable to plan of care: yes The following references were used: provider Dr. Pickett Telephone Encounter - Mirian Wilburn - 04/27/2018 11:31 AM CDT Luisa Coulter returned your call. I was not able to reach you by page. Haylee Combs Telephone Encounter - Perla Siegel R.N. - 04/25/2018 2:11 PM CDT I advised Luisa per Dr. Pickett that he will be reviewing her case at our epilepsy surgery conference on May 24. He will contact her after the conference. If she is having urgent issues sinceleaving the monitoring unit she should let Dr. Pickett know. Luisa also says that her daughter is 3.5 years old and is unable to talk. She was flagged at [facility] for having 5 signs of autism. I explained to Luisa that it would be difficult to know if this was caused from her medications or if it occurred from outside factors as this can be common in the general population. She is wondering if Dr. Pickett has any statistics of this happening to otherchildren whose mother's were taking lamotrigine or Vimpat during their pregnancies. Telephone Encounter - Perla Siegel R.N. - 04/25/2018 11:43 AM CDT Do you have any information we can review with Luisa? Perla Combs Telephone Encounter - Mirian Wilburn - 04/25/2018 10:23 AM CDT Holly Coulter calls. She is calling to find out if Dr. Pickett has any results yet from her hospital stay last week. Also, when she was with her daughter she was on lamotrigine and Vimpat. When she was they upped her dose. She is wondering how that will affect her daughter???s growth and neurology stuff because she is not developing like a 2-year-old should. Best phone is [phone]. Lauryn Leach documented in this encounter Plan of Treatment Not on filedocumented as of this encounter Visit Diagnoses Not on filedocumented in this encounter Care Teams Progress Developer Relationship Specialty Start Date End Date Patricio Palmer M.D. PCP - General Family Medicine 12/18/[address] [place] [address] [place] [phone] documented as of this encounter
--- OUTSIDE RECORDS SUMMARY | 2022-02-22 12:36 | XMS_ITS | Encounter Summary ---
:1985 Author Organization [facility] Address [address] [place] [address] Care Team Providers Name Role Phone Patricio Palmer M.D. Primary Care Provider Encounter Details Date Type Department Care Team Description 05/25/2018 Orders Only Department of Pietro Pickett Epilepsy S eizure Not Neurology in [place] Intractable Without [place], [place] [address] [facility] Status Epilepticus [address] [place], [place] ([facility]) [place] [phone] Social History Tobacco Use Types Packs/Day Years [...] 1 to 4 times per year 05/18 mu-ism services? 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 PCP - General Family Medicine 12/18/[address] [place], [place] [address] [phone] documented as of this encounter
--- OUTSIDE RECORDS SUMMARY | 2022-02-22 12:36 | XMS_ITS | Encounter Summary ---
:1985 Author Organization [facility] Address [address] [place] [id number] Care Team Providers Name Role Phone Patricio Palmer M.D. 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 [address] [phone] Referral ID Status Reason Start Date Expiration Date Visits Requ ested Visits Authorized [id number] Closed 07/23/2018 07/23/2019 1 1 ESSOR OF BIOSTATISTICS Reason for Visit Reason Onset Date Comments What else does she need to do before surgery 07/23/2018 Pietro Pickett Encounter Details Date Type Department Care Team Description 07/23/2018 Clinical Communication Department of Piyush, What else does she Neurology in Pietro Zuluaga M.D. need to do before [address] surgery ([place] Pietro) [address] [address] [place], [place] [phone] (Work) [phone] Social History Tobacco Use Types Packs/Day Years [...] 1 to 4 times per year 05/18 jain services? Do you belong to any clubs [...] Recorded Female 06/09/2021 2:09 PM PROFESSOR OF BIOSTATISTICS documented as of this encounter Miscellaneous Notes Telephone Encounter - Perla Siegel, R.N. - 07/24/2018 11:34 AM CST I contacted Holly to review Dr. Pickett's recommendations. Dr. Pickett says the MAGDALENE was not very revealing. Latest MRI was for electrode placement planning. Dr. Pickett sent an order for her to see him and a neurosurgeon to discuss surgery. ESSOR OF BIOSTATISTICS Telephone Encounter - Bertin Sena R.N. - 07/23/2018 2:30 PM CST Holly calls to inquire about surgery and when it might be. She also inquires about her MRI results. I let her know that a message about the MRI results is in for Dr. Pickett to review. I further relayed that we would also include her question if there was anything else she needed before surgery and when surgery might be. PLAN She works today at 3 pm but is off tomorrow (07/24) if we could call her back with Dr. Pickett's response. Education: patient/caller able to teach back The following references were used: nursing clinical judgement ESSOR OF BIOSTATISTICS Telephone Encounter - Mirian Wilburn - 07/23/2018 11:19 AM CST Holly Coulter calls for Dr. Pickett. She is wondering what else she needs to do before surgery andif you can let her know what the surgery date will be. She goes to work for 3 p.m. today and requests a call back before that time if possible. ESSOR OF BIOSTATISTICS documented in this encounter Plan of Treatment Scheduled Referrals Name Type Priority Associated Diagnoses Order S [facility] Neurology office Outpatient Referral Routine Expe cted: visit (clinic) 07/23/2018 (Approximate), Expires: 07/23/2021 Neurological Surgery Outpatient Referral Routine Focal Epileps y Expected: - Epilepsy consult Symptomatic 9 (clinic) Intractable Without (Approxi mate), Status Epilepticus Expires: ([facility]) 07/23/2021 documented as of this encounter Visit Diagnoses Diagnosis 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) - Primary documented in this encounter Care Teams Machine Bobbin Winder Relationship Specialty Start Date End Date Patricio Palmer M.D. PCP - General Family Medicine 12/18/[address] [place] [phone] documented as of this encounter
--- OUTSIDE RECORDS SUMMARY | 2022-02-22 12:36 | XMS_ITS | Encounter Summary ---
:1985 Author Organization [facility] Address [address] [place] [address] Care Team Providers Name Role Phone Patricio Palmer M.D. Primary Care Provider Reason for Visit Reason Onset Date Comments Pt had MAGDALENE yesterday, ready for MRI 07/04/2018 Pietro Lee Encounter Details Date Type Department Care Team Description 07/04/2018 Clinical Communication Department of Jaguar Pickett MAGDALENE Neurology in Pietro Zuluaga M.D. yesterday, ready [place], [facility] [address] [facility] for MRI (Ricky Pickett [place], [place] Pietro Purdy) [address] [facility] [address] [place], [place] [phone] (Work) [phone] Social History Tobacco Use Types Packs/Day Years [...] 1 to 4 times per year 05/18 yarsani services? 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 - 07/04/2018 3:30 PM CST INFORMATION DISCUSSED I contacted Holly to relay to her that MRI SEEG was ordered. I also let her know that I would relaya message to our scheduling area so they can contact her to arrange this test. Holly verbalized understanding and will await the call from scheduling. PLAN Disposition/Recommendation: patient to schedule appointment Education: patient/caller able to teach back Caller agreeable to plan of care: yes The following references were used: nursing clinical judgement CHECKER Telephone Encounter - Bertin Sena R.N. - 07/04/2018 2:47 PM CST SEEG MRI ordered by Dr. Pickett. Please contact patient to schedule. Thanks! CHECKER Telephone Encounter - Mirian Wilburn - 07/04/2018 8:14 AM CST Holly Marylin calls to let Dr. Pickett know that she had her MAGDALENE appointment yesterday in [place]. She says she is now ready for her MRI scan. 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 PCP - General Family Medicine 12/18/[address] [place] [phone] documented as of this encounter
--- OUTSIDE RECORDS SUMMARY | 2022-02-22 12:37 | XMS_ITS | Encounter Summary ---
:1985 Author Organization [facility] Address [address] [place] [address] Care Team Providers Name Role Phone Patricio Palmer M.D. 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 - 03/26/2018 4:54 PM CDT Discussed imaging results with patient. 7 david MRI here showed area of T2 signal hyperintensity involving the left superior temporal gyrus, unchanged from previous MRI. PET read as negative; to me it shows possible left anterior temporal hypometabolism compared to right. Prior EEG monitoring showed poorly localized seizures. I explained that she is not clearly a surgical candidate at this point. However if a SPECT helped localize an area of possible seizure onset she may be a candidate for intracranial monitoring. Told herSPECT would have a 50/50 chance of helping us and it may end up being non-localizing. If this is thecase she may be a candidate for VNS or DBS. She's interested in repeating EMU evaluation. She indicated admission Friday 04/06 would work best. She's also interested in trying medical cannabis. Discussed latter in detail, and registered her with the [facility] site; told her they'd be in contact with her by email which she told me is: [email or web address] Telephone Encounter - Maddie Costa - 03/26/2018 3:[address] Pickett, Patient called back stating that you asked her to return your call. Please call her cell listed below. [phone] Cell Thank you, Maddie Return patient phone call but got voicemail instead of talking [id number]. Her MRI shows an area of scar tissue in the left lateral superior temporal gyrus region. Her PET scan was read as nonlocalizing. On my inspection to me it looks like her PET scan does show some reducedactivity in the left temporal lobe but the changes are subtle. Her previous EEG monitoring 2 years ago did not precisely localized to the left temporal region. ?? I recommended we bring her back in for EEG monitoring in order to try to get a SPECT scan. This willhelp us identify if there is enough evidence of a precise region of seizure onset to warrant moving forward further with a surgery evaluation. In her situation, surgical decisions will likely require in tracranial monitoring. At this point however her seizures are not very localizing and she does not have definitive imaging abnormalities to correlate with her seizures, so she is not a straightforward candidate for surgery. I asked her to contact me and request admission for epilepsy monitoring if she decides to go through with this recommendation. 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 PCP - General Family Medicine 12/18/[address] [place] [phone] documented as of this encounter
--- OUTSIDE RECORDS SUMMARY | 2022-02-22 12:37 | XMS_ITS | Encounter Summary ---
:1985 Author Organization [facility] Address [address] [place] [address] Care Team Providers Name Role Phone Patricio Palmer M.D. 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 - 03/23/2018 5:03 PM CDT Return patient phone call but got voicemail instead of talking [id number]. Her MRI shows an area of scar [...] precisely localized to the left temporal region. I recommended we bring her back in [...] on filedocumented in this encounter Care Teams Circulation Analyst Relationship Specialty Start Date End Date Patricio Palmer M.D. PCP - General Family Medicine 12/18/[address] [place] [phone] documented as of this encounter
--- OUTSIDE RECORDS SUMMARY | 2022-02-22 12:37 | XMS_ITS | Encounter Summary ---
:1985 Author Organization [facility] Address [address] [place] [address] Care Team Providers Name Role Phone Patricio Palmer M.D. Primary Care Provider Encounter Details Date Type Department Care Team Description 03/07/2018 Abstract DATA ABSTRACTION Provider, Historical Social History Tobacco Use Types Packs/Day Years [...] or slept in a fdc (including now)? Sex Assigned at Date Recorded Female 06/09/2021 2:09 PM DIRECTOR E LEARNING documented as of this encounter Plan of Treatment Not on filedocumented as of this encounter Visit Diagnoses Not on filedocumented in this encounter Care Teams Floor Waxer Relationship Specialty Start Date End Date Patricio Palmer M.D. PCP - General Family Medicine 12/18/[address] [place] [phone] documented as of this encounter
--- OUTSIDE RECORDS SUMMARY | 2022-02-22 12:37 | XMS_ITS | Encounter Summary ---
:1985 Author Organization [facility] Address [address] [place] [address] Care Team Providers Name Role Phone Patricio Palmer M.D. Primary Care Provider Encounter Details Date Type Department Care Team Description 03/30/2018 Clinical Communication Department of Maria L José, Neurology in [place], [place] [address] [place] [address] Social History Tobacco Use Types Packs/Day Years [...] at Date Recorded Female 06/09/2021 2:09 PM POT PUSHER documented as of this encounter Miscellaneous Notes Telephone Encounter - Maria L José R.N. - 03/30/2018 2:49 PM CDT Entered in error. documented in this encounter Plan of Treatment Not on filedocumented as of this encounter Visit Diagnoses Not on filedocumented in this encounter Care Teams Printed Circuit Board Preassembler Relationship Specialty Start Date End Date Patricio Palmer M.D. PCP - General Family Medicine 12/18/[address] [place] [phone] documented as of this encounter
--- OUTSIDE RECORDS SUMMARY | 2022-02-22 12:37 | XMS_ITS | Encounter Summary ---
:1985 Author Organization [facility] Address [address] [place] [address] Care Team Providers Name Role Phone Patricio Palmer M.D. 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 Takes 4 tablet (2,000mg total) by mouth as needed for headaches lacosamide (VIMPAT) 100 Take 1 tablet (100 60 tablet 1 01/1504/16/2018 mg tablet mg total) by mouth 2 (two) times a day. lamoTRIgine (LaMICtal) Take 1 tablet (100 60 tablet 5 02/0703/09/2018 100 mg tablet mg total) by mouth 2 (two) times a day. documented as of this encounter Plan of Treatment Not on filedocumented as of this encounter Procedures Procedure Name Priority Date/Time Associated Comments Diagnosis LACOSAMIDE, S Routine 03/08/2018 10:33 Focal Epilepsy Results for this AM CDT Symptomatic procedure are i n Intractable Without the resu lts Status Epilepticus section. ([facility]) LAMOTRIGINE LEVEL, S Routine 03/08/2018 10:33 Focal Epilepsy R esults for this AM CDT Symptomatic procedure are i n Intractable Without the resu lts Status Epilepticus section. ([facility]) CBC WITH DIFFERENTIAL, B Routine 03/08/2018 10:33 Focal Epilep sy Results for this AM CDT Symptomatic procedure are i n Intractable Without the resu lts Status Epilepticus section. ([facility]) ALANINE AMINOTRANSFERASE Routine 03/08/2018 10:33 Focal Epilep sy Results for this (ALT), S/P AM CDT Symptomatic procedure are i n Intractable Without the resu lts Status Epilepticus section. ([facility]) ASPARTATE Routine 03/08/2018 10:33 Focal Epilepsy Results f or this AMINOTRANSFERASE (AST), AM CDT Symptomatic proc edure are in S/P Intractable Without the resu lts Status Epilepticus section. (HCC) documented in this encounter Results (ABNORMAL) Lamotrigine Level (03/08/2018 10:33 AM CDT) athologist Signature Lamotrigine, S 2.0 (L) 2.5 - 15.0 03/09/2018 [facility] mcg/mL 11:18 AM CDT [facility] Comment: ----ADDITIONAL INFORMATION---- This test was developed and its performa nce characteristics determined by [facility] in a manner consistent with CLIA requirements. This test has not been cleared or approved by the [place] and Drug Administration. Specimen Anatomical Collection Method Collection Time Receive d Time (Source) Location / / Volume Laterality Blood (Blood, 03/08/2018 10:33 03/09/2018 8:56 Venous) AM CDT AM CDT Pietro Pickett M.D. LAB BLOOD NON ADD-ON Performing Organization Address City/[facility]/ZIP Code Phon e Number [address] [place] [address] [facility] Lacosamide (Vimpat), Level (03/08/2018 10:33 AM CDT) athologist Signature Lacosamide, S 4.8 1.0 - 10.0 03/09/2018 [facility] mcg/mL 10:54 AM CDT [facility] Comment: ----ADDITIONAL INFORMATION---- This test was developed and its performa nce characteristics determined by [facility] in a manner consistent with CLIA requirements. This test has not been cleared or approved by the [place] Panch[place] d and Drug Administration. Specimen Anatomical Collection Method Collection Time Receive d Time (Source) Location / / Volume Laterality Blood (Blood, 03/08/2018 10:33 03/09/2018 7:41 Venous) AM CDT AM CDT Pietro Pickett M.D. LAB BLOOD NON ADD-ON Performing Organization Address City/State/ZIP Code Phon e Number [facility] [address] [place] [address] [facility] (ABNORMAL) CBC with Differential, Blood (03/08/2018 10:33 AM CDT) [facility] Method Time Signature Hemoglobin 14.7 11.6 - 03/08/2018 [facility] 15.0 g/dL 10:46 AM [facility] Hematocrit 45.6 (H) 35.5 - 03/08/2018 [facility] 44.9 % 10:46 AM CDT [facility] Erythrocytes 5.15 (H) 3.92 - 03/08/2018 [facility] 5.13 10:46 AM CDT [facility]ALTH x10(12)/L [facility] MCV 88.5 78.2 - 03/08/2018 [facility] 97.9 fL 10:46 AM [facility] RBC Distrib Width 13.5 12.2 - 03/08/2018 [facility] 16.1 % 10:[address] [facility] Platelet Count 319 157 - 371 03/08/2018 [facility] x10(9)/L 10:[address] [facility] Leukocytes 8.6 3.4 - 9.6 03/08/2018 [facility] x10(9)/L 10:46 AM T [facility] Neutrophils 4.76 1.56 - 03/08/2018 [facility] 6.45 10:46 AM CDT HEALTH x10(9)/L [facility] Lymphocytes 2.73 0.95 - 03/08/2018 [facility] 3.07 10:46 AM CDT [facility]ALTH x10(9)/L [facility] Monocytes 0.94 (H) 0.26 - 03/08/2018 [facility] 0.81 10:46 AM CDT [facility]ALTH x10(9)/L [facility] Eosinophils 0.12 0.03 - 03/08/2018 [facility] 0.48 10:46 AM CDT [facility]ALTH x10(9)/L [facility] Basophils 0.06 0.01 - 03/08/2018 [facility] 0.08 10:46 AM CDT [facility] x10(9)/L [facility] Specimen Anatomical Collection Method Collection Time Receive d Time (Source) Location / / Volume Laterality Blood (Blood, 03/08/2018 10:33 03/08/2018 Venous) AM CDT 10:34 AM CDT Pietro Pickett M.D. LAB BLOOD ADD-ON Performing Organization Address City/[facility]/ZIP [facility] [place] [place] Phon e Number [address] [place], [place] [address] [facility] AST (Aspartate Aminotransferase) (03/08/2018 10:33 AM CDT) [facility] Method Time Signature Aspartate 21 8 - 43 03/08/2018 [facility] Aminotransferase U/L 11:37 AM CDT HEALTH (AST), S [facility] Specimen Anatomical Collection Method Collection Time Receive d Time (Source) Location / / Volume Laterality Blood (Blood, 03/08/2018 10:33 03/08/2018 Venous) AM CDT 10:34 AM CDT Pietro Pickett M.D. LAB BLOOD ADD-ON Performing Organization Address [facility]/ZIP [facility] [place] [place] Phon e Number [address] [place], [place] [address] [facility] ALT (Alanine Aminotransferase) (03/08/2018 10:33 AM CDT) [facility] Method Time Signature Alanine 25 7 - 45 03/08/2018 [facility] Aminotransferase U/L 11:37 AM CDT [facility]ALT[facility] Specimen Anatomical Collection Method Collection Time Receive d Time (Source) Location / / Volume Laterality Blood (Blood, 03/08/2018 10:33 03/08/2018 Venous) AM CDT 10:34 AM CDT Pietro Pickett M.D. 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 PCP - General Family Medicine 12/18/[address] [place] [address] [place] [phone] documented as of this encounter
--- OUTSIDE RECORDS SUMMARY | 2022-02-22 12:37 | XMS_ITS | Encounter Summary ---
:1985 Author Organization [facility] Address [address] [place] [address] Care Team Providers Name Role Phone Unavailable Primary Care Provider Unavailable Encounter Details Date Type Department Care Team Description 02/18/2017 Hospital Encounter HX [facility] Patricio Mendes M.D. 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 documented as of this encounter Last Filed Vital Signs Vital Sign Reading Time Taken Comments Blood Pressure 110/72 02/18/2017 9:25 AM CDT Pulse 86 02/18/2017 9:25 AM CDT Temperature - - Respiratory Rate 14 02/18/2017 9:25 AM CDT Oxygen Saturation - - Inhaled Oxygen Concentration - - Weight 52.8 kg (116 lb 6.5 oz) 02/18/2017 9:25 AM CDT Height 163 cm (5' 4.17) 02/18/2017 9:25 AM CDT Body Mass Index 19.87 02/18/2017 9:25 AM CDT documented in this encounter Medications at Time of Discharge Medication Sig Dispensed Refills Start Date End Date ACETAMINOPHEN ORAL Take 500 mg by mouth 0 016 as needed. Takes 4 tablet (2,000mg total) by mouth as needed for headaches lacosamide (VIMPAT) 100 Take 1 tablet by 0 201602/07/2018 mg tablet mouth 2 (two) times a day. lamoTRIgine Take 1 tablet by 0 08/02/2016 018 (for_LaMICtal) 100 mg mouth 2 (two) times tablet a day. documented as of this encounter Progress Notes Patricio Palmer M.D. - 02/18/2017 9:19 AM CDT [id number] URGENT CARE NOTE CHIEF COMPLAINT/REASON FOR VISIT STD screening. SUBJECTIVE: Preet is a 32-year-old female who presents to urgent care asymptomatic wanting STD screening. She tells me she needs this for a job [place] tells me. She does not have any concerns for exposure at this point. She just tells me that the company wants certain things done. I did go over with her and it sounds like they want HIV, syphilis, gonorrhea, chlamydia and herpes. SYSTEMS REVIEW Focused review of systems negative. VITAL SIGNS Temperature 36.4, heart rate 86, respiratory rate 14, blood pressure 110/72, weight is 52.8, BMI 19.87. PHYSICAL EXAMINATION GENERAL: Preet is a 32-year-old female in no acute distress. DIAGNOSTIC DATA: HIV, syphilis, gonorrhea, chlamydia and herpes testing pending at this point. IMPRESSION/REPORT/PLAN Concern for sexually transmitted diseases regarding this. She is asymptomatic, has no apparent history of exposure but needs this for work. We will get testing. Patricio Palmer M.D./pos Electronically Signed By: PATRICIO PALMER MD On: 02/21/2017 07:47 PM Source: [facility] [id number] Document Id: [id number] documented in this encounter Miscellaneous Notes Miscellaneous - Caterina Almaguer C.M.A. - 02/20/2017 11:46 AM CDT Spencer/partner - STD testing/no PCP Document Contains Addenda Addendum by ESE SHOOK LPN on February 20, 2017 13:19:40 CDT Call to patient and informed her of message below. Patient verbalized understanding. Letter reprinted as patient wanted to orange picker today. 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 Addendum by PATRICIO PALMER MD on February 20, 2017 13:02:20 CDT From: PATRICIO PALMER MD To: KEHINDE Olguin Nurse; Sent: 02/20/2017 13:02:20 CDT Subject: RE: Spencer/partner - STD testing/no PCP We can not eradicate herpes. She will test positive for life because of the herpes virus lives within the nerves Addendum by ESE SHOOK LPN on February 20, 2017 12:00:14 CDT From: ESE SHOOK LPN (KEHINDE Olguin Nurse) To: PATRICIO PALMER MD; Sent: 02/20/2017 12:00:14 CDT Subject: FW: Spencer/partner - STD testing/no PCP From: CATERINA ALMAGUER (KEHINDE JonBryant Nurse) To: KEHINDE Olguin Nurse; Sent: 02/20/2017 11:46:12 CDT Subject: Palmer/partner - STD testing/no PCP Pt was seen in on 02/18/17 and tested for STD's. According to results letter the following was noted: Preet, you are negative for HIV and syphilis and chlamydia and gonorrhea. You are positive for the herpes virus (both strain 1 and 2). This is fairly common at your age (I would estimate over 40% of americans your age are positive for herpes). Pt called in today requesting these results and letter was reviewed with her. She is wondering if she should be treated? She is not having any kind of outbreak or symptoms but states that her employer requires her to be treated. Please advise. # [phone]. *Note she has no PCP and states she doesn't follow a doctor anywhere.* Source: [facility] POWERCHART Document Id: [id number] Miscellaneous - Patricio Palmer M.D. - 02/20/2017 8:50 AM CDT Normal Results Letter February 20, 2017 PREET TURK 206 07/[address] [place] [address] [place] [id number] Dear Preet SANDERS, you are negative for HIV and syphilis and chlamydia and gonorrhea. You are positive for the herpes virus (both strain 1 and 2). This is fairly common at your age (I would estimate over 40% of americans your age are positive for herpes). Would you like to see your lab results quickly? If you have an e-mail account, join the other [phone],000 [facility] patients who use the Patient Online Services to conveniently access their lab results by calling [phone] to sign up for an account. It just takes a few minutes! Result Name Current Result Normal Range HIV 1 Ab Non-Reactive 02/18/2017 Non-Reactive - HIV 1 Ag Non-Reactive 02/18/2017 Non-Reactive - HIV 1/2 Ag and Ab Non-Reactive 02/18/2017 Non-Reactive - HIV 2 Ab Non-Reactive 02/18/2017 Non-Reactive - Herpes Simplex 1 IgG Antibody (*) Positive 02/18/2017 Negative - Herpes Simplex 2 IgG Antibody (*) Positive 02/18/2017 Negative - Syphilis IgG Antibody Negative 02/18/2017 Negative - Chlamydia by Nucleic Acid Amplification 02/18/2017 GC by Nucleic Acid Amplification 02/18/2017 Sincerely, PATRICIO PALMER [address] [place] [address] EMEKA Olguin [address] Electronic Signature Electronically Signed By: PATRICIO PALMER MD On: February 20, 2017 This document has images extracted. Source: [facility] POWERCHART Document Id: [id number] Miscellaneous - Patricio Palmer M.D. - 02/18/2017 9:39 AM CDT Ambulatory Patient Summary [address] [place] Olguin [id number] Visit Information Name: PREET TURK [facility] Number: [id number] Current Date: 02/18/2017 09:39:02 Physicians Attending Provider: PATRICIO PALMER MD Primary Care Provider: PCP, PREET MONROY has been given the following list of follow-up instructions, medication list,and patient education materials: Follow-up Instructions Your Medications Here is a list of your medications. It is important to take your medications as directed. Use a pillbox or chart to help remind you to take your medications. Please let your doctor or nurse know if you have problems taking your medications. Medication/Strength How to Take Indications/Special Instructions/Comments/Notes for Patient Medication Changes/Routing acetaminophen (Tylenol) Oral PRN ibuprofen (ibuprofen) PRN lacosamide (Vimpat 100 mg oral tablet) 1 Tablet(s), Oral, two times a day lamoTRIgine (lamoTRIgine 100 mg oral tablet) 1 Tablet(s), Oral, two times a day Stop Taking the Following Medications: Medication list as of 02-18-17 09:39 Attention: If you have any medications at home that are not on this list, DO NOT take them until youcontact your provider for clarification. Give a copy of your medication list to your primary care provider. Update your medication list any time medications or doses are changed and carry your medication list at all times in case of emergency. 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 Consider Using Patient Online Services Patient Online Services is a secure online and Mobile application that lets you: ?? View lab and test results ?? View portions of your medical record including clinical notes, immunizations and discharge summaries ?? Request an appointment or medication refill ?? Review your appointment schedule ?? Send secure messages to your care team Its easy to create an account if you dont have one. Go to [email or web address] and click on Create Your Account. Then, follow the directions to complete the online form. Youll be asked for your [facility] number which you can find at the top of this document. Your Goals/Additional instructions: Source: [facility] POWERCHART Document Id: [id number] Miscellaneous - Patricio Palmer M.D. - 02/18/2017 9:39 AM CDT Ambulatory Discharge Medication List [place] [id number] Visit Information Name: [address] [facility] Number: [id number] Current Date: 02/18/2017 09:39:01 Attending Provider: PATRICIO PALMER MD Primary Care Provider: PCP, PREET MONROY has been given the following list of medications: Your Medications It is important to take your medications as directed. Use a pill box or chart to help remind you to take your medications. Please let your doctor or nurse know if you have problems taking your medications. Medication/Strength How to Take Indications/Special Instructions/Comments/Notes for Patient Medication Changes/Routing acetaminophen (Tylenol) Oral PRN ibuprofen (ibuprofen) PRN lacosamide (Vimpat 100 mg oral tablet) 1 Tablet(s), Oral, two times a day lamoTRIgine (lamoTRIgine 100 mg oral tablet) 1 Tablet(s), Oral, two times a day Stop Taking the Following Medications: Medication list as of 02-18-17 09:39 Attention: If you have any medications at home that are not on this list, DO NOT take them until youcontact your provider for clarification. Give a copy of your medication list to your primary care provider. Update your medication list any time medications or doses are changed and carry your medication list at all times in case of emergency. Electronically Signed By: PATRICIO PALMER MD Signed On:18-FEB-2017 09:38:59 Additional Information: Source: [facility] POWERCHART Document Id: [id number] Miscellaneous - Ese Shook, L.P.N. 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 Intake/History Entered On: 02/18/2017 9:28 CDT Performed On: 02/18/2017 9:25 CDT by ESE SHOOK CHARGING BOARD OPERATOR Intake Chief Complaint : STD testing- required for job Temperature Core : 36.4 DegC(Converted to: 97.5 DegF) (LOW) Peripheral Pulse Rate : 86 /min Respiratory Rate : 14 /min Heart Rhythm : Regular Systolic Blood Pressure : 110 mmHg Diastolic Blood Pressure : 72 mmHg NIBP Mean : 85 mmHg BP Location : Left upper extremity Blood Pressure Cuff Size : Regular SpO2 : 98 % Oxygen Therapy : Room air Height : 163 cm(Converted to: 5 ft 4 inch(es), 64 inch(es)) Actual Weight : 52.8 kg(Converted to: 116 lb 6 oz) Weight Source : Standing scale Dosing Weight Clinic : 52.8 kg Clinic BSA : 1.55 Body Mass Index : 19.87 kg/m2 ESE SHOOK LPN - 02/18/2017 9:25 CDT General Info Information Given By : Patient Preferred Communication Mode : Verbal, Written Languages : Uzbek Is Patient Female and 13-50 no hysterectomy : Yes Status : Patient denies Are you ? : No ESE SHOOK CHARGING BOARD OPERATOR - 02/18/2017 9:25 CDT Subjective Pain Symptoms : No ESE SHOOK LPN - 02/18/2017 9:25 CDT Dependent Habits Exposure to Tobacco Smoke : Patient smokes Smoking Status : Current every day smoker Tobacco 2A : Yes Tobacco Use/Currently Using : Yes Tobacco Use/Last 30 Days : Yes Tobacco Use/Last 12 months : Yes Type : Cigarettes: Less than 20 per day Tobacco Use/Advised to Quit : No ESE SHOOK LPN - 02/18/2017 9:25 CDT Caffeine Use Grid Caffeine Use : Current Type : Coffee, Soft drinks Frequency : Daily Amount : 2 pots ESE SHOOK CHARGING BOARD OPERATOR - 02/18/2017 9:25 CDT Recreational Drug Use Grid Drug Use : None ESE SHOOK LPN - 02/18/2017 9:25 CDT Source: [employer] Document Id: [id number]!47 documented in this encounter Plan of Treatment Not on filedocumented as of this encounter Procedures Procedure Name Priority Date/Time Associated Comments Diagnosis HIV-1/-2 AG AND AB Routine 02/18/2017 9:45 AM Res ults for this SCREEN CDT procedure are i n the results section. CHLAMYDIA/GONORRHOEAE Routine 02/18/2017 9:40 AM Results for this AMPLIFIED RNA CDT procedure are in the results section. CHLAMYDIA TRACHOMATIS Routine 02/18/2017 9:40 AM Results for this AMPLIFIED RNA CDT procedure are in the results section. documented in this encounter Results HIV-1/-2 Ag and Ab Screen (02/18/2017 9:45 AM CDT) Analysis Performed At [facility] logist Time Signature HIV-1/-2 Ag Non-Reacti Non-Reacti POWERCHART and Ab Screen, ve ve S Comment: The performance of this assay h as not been established for neonates, and the assay should not be used in individuals younger than 2 years of age. Hx HIV 1 Ab Non-Reactive Non-Reactive POWERCHART HX HIV 1 Ag Non-Reactive Non-Reactive POWERCHART HX HIV 2 Ab Non-Reactive Non-Reactive POWERCHART Specimen (Source) Anatomical Collection Method Collection Time Re ceived Time Location / / Volume Laterality Blood 02/18/2017 9:45 AM CDT Patricio Palmer M.D. LAB MICROBIOLOGY - BLOOD ORD ERABLES Performing Organization Address City/State/ZIP Code Phon e Number POWERCHART POWERCHART NA Chlamydia / gonorrhoeae Amplified RNA (02/18/2017 9:40 AM CDT) Component Value Ref Test Analysis Performed At [facility] gist Range Method Time Signature HX GC by Nucleic POWERCHART Acid Amplification HXFinal Negative for POWERCHART Neisseria gonorrhea by RNA amplification . HXFinal Reference: POWERCHART Negative HXFinal If you POWERCHART submitted a female urine sample, please note it is a Laboratory Developed Test. Specimen (Source) Anatomical Collection Method Collection Time Re ceived Time Location / / Volume Laterality Urine 02/18/2017 9:40 AM CDT Patricio Palmer M.D. LAB MICROBIOLOGY - GENERAL O RDERABLES Performing Organization Address [facility] Code Phon e Number POWERCHART POWERCHART NA Chlamydia trachomatis Amplified RNA (02/18/2017 9:40 AM CDT) Component Value Ref Test Analysis Performed At [facility] gist Range Method Time Signature HXChlamydia by POWERCHART Nucleic Acid Amplification HXFinal Negative for POWERCHART Chlamydia trachomatis by RNA amplification. HXFinal Reference: POWERCHART Negative HXFinal If you POWERCHART submitted a female urine sample, please note it is a Laboratory Developed Test. Specimen (Source) Anatomical Collection Method Collection Time Re ceived Time Location / / Volume Laterality Urine 02/18/2017 9:40 AM CDT Patricio Palmer M.D. LAB MICROBIOLOGY - GENERAL O RDERABLES Performing Organization Address City/[facility] Code Phon e Number POWERCHART POWERCHART NA documented in this encounter Visit Diagnoses Not on filedocumented in this encounter
--- OUTSIDE RECORDS SUMMARY | 2022-02-22 12:37 | XMS_ITS | Encounter Summary ---
:1985 Author Organization [facility] Address [address] [place] [address] Care Team Providers Name Role Phone Patricio Palmer M.D. Primary Care Provider Reason for Visit Reason Onset Date Comments upcoming hospital stay 03/30/2018 [facility] visit Encounter Details Date Type Department Care Team Description 03/30/2018 Clinical Communication Department of [facility] Neurology in Pietro Zuluaga M.D. stay [place], [address] [place] [address] ([place] hospital visit) [address] [place] [id number] [place], [place] [phone] (Work) [phone] Social History Tobacco Use Types Packs/Day Years [...] or slept in a retirement (including now)? 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 - 04/02/2018 1:41 PM CDT Thank you for your hard work on this Maddie. Telephone Encounter - Maddie Csota - 04/02/2018 11:04 AM CDT Maria L, Patient called & told she was scheduled for 04-06-18 by someone, Valentin DORMAN ( not [facility]) scheduled herfor 04-12-18 on 03-30-18 so I am not sure who confirmed 04-06-18 with her I have her rescheduled to 04-10-18. Thank you, Maddie Telephone Encounter - Maria L José RFlexNFlex - 04/02/2018 8:42 AM CDT The patient was reached today to address her concerns about her upcoming visit to the monitoring unit. The patient stated she did not have any questions or concerns about the stay. She called last weekto try to schedule. The [facility] has scheduled the patient for admission on 04/12/18. The patient, however, believed she had been scheduled for 04/06/18. She stated her family physician told her she would be admitted on 04/06. She voiced her frustration stating she took off work and made arrangements for the care of her children at that time. Scheduling has been notified, and we are attempting to see if there is something we can do to accommodate her. Telephone Encounter - Maria L José R.N. - 03/30/2018 2:52 PM CDT Appointment coordinators sent message to schedule patient for EMU stay ordered on 03/09/18. RN attempted call but line was busy. Telephone Encounter - Pamella Stout - 03/30/2018 2:37 PM CDT Patient would like a call regarding her upcoming hospital stay. Thanks Pamella in the absence of Haylee documented in this encounter Plan of Treatment Not on filedocumented as of this encounter Visit Diagnoses Not on filedocumented in this encounter Care Teams Space Planner Relationship Specialty Start Date End Date Patricio Palmer M.D. PCP - General Family Medicine 12/18/[address] [place] [phone] documented as of this encounter
--- OUTSIDE RECORDS SUMMARY | 2022-02-22 12:37 | XMS_ITS | Encounter Summary ---
:1985 Author Organization [facility] Address [address] [place] [address] Care Team Providers Name Role Phone Unavailable Primary Care Provider Unavailable Reason for Visit Reason Comments Confirmation Of Encounter Details Date Type Department Care Team Description 08/30/2017 Office Visit Urgent Care in [place] Lerner Shari Ca nstrual Irregularity [place] L, FRONT DESK PERSON, C.N.P., (Primary Dx) [address] [facility] [place] [phone] [address] [facility] [phone] [place] [address] Social History Tobacco Use Types Packs/Day Years [...] or relatives? How often do you attend orthodoxy or 1 to 4 times per year 05/18 uatsdin services? 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 documented as of this encounter Last Filed Vital Signs Vital Sign Reading Time Taken Comments Blood Pressure 110/80 08/30/2017 12:00 PM HOUSING INSTALLER Pulse 86 08/30/2017 12:00 PM HOUSING INSTALLER Temperature 36.7 ??C (98.1 ??F) 08/30/2017 12:00 PM HOUSING INSTALLER Respiratory Rate 16 08/30/2017 12:00 PM HOUSING INSTALLER Oxygen Saturation 99% 08/30/2017 12:00 PM HOUSING INSTALLER Inhaled Oxygen Concentration - - Weight 55.3 kg (121 lb 14.6 oz) 08/30/2017 12:00 PM HOUSING INSTALLER Height 163 cm (5' 4.17) 08/30/2017 12:00 PM HOUSING INSTALLER Body Mass Index 20.81 08/30/2017 12:00 PM HOUSING INSTALLER documented in this encounter Progress Notes Sarita Lutz, SPENSER, C.N.P. - 08/30/2017 12:15 PM CST CHIEF COMPLAINT / REASON FOR VISIT Confirmation Of . HISTORY OF PRESENT ILLNESS Luisa Coulter is a 32 y.o. female with history of epilepsy, nephrolithiasis, tobacco dependence who presents for evaluation of possible . Patient is 5 para 2 (with 2 miscarriages and 1 elective , and a living boy and girl.) She comes in today with symptoms of headache fatigue and nausea. This has been going on for the last few weeks. She states her last menstrual period was August 05 and she says it was very short and spotty. She has not yet had a period this month and she is concerned about . She believes last time she had intercourse approximately 5 weeks ago. She has no abdominal pain, dysuria or STD symptoms. She states she has already planned that if she is , she intends to have the aborted and states she will go to the [facility] for intervention. Patient is on lamotrigine, therefore, there can be occurrence of a false- positive result, therefore,I have ordered a serum HCG test on her today. Patient stated to leave a message on her phone if she does not pick it up today with her results. The patient's allergies, medications, and problems list were reviewed in the electronic medical record. Brief Review of Systems: A brief review of systems was negative except for that mentioned in the history of present of illness. PHYSICAL EXAM BP 110/80 (BP Location: Left arm, Patient Position: Sitting, Cuff Size: Regular) Pulse 86 Temp 36.7 ??C (Temporal) Resp 16 Ht 163 cm Wt 55.3 kg LMP 08/05/2017 SpO2 99% BMI 20.81 kg/m?? Body mass index is 20.81 kg/m??. GENERAL: This patient is alert and in no acute distress. HEENT: Head normocephalic and atraumatic. Eyes equal round, reactive to light and accommodate. Mucous membranes moist and intact. RESPIRATORY: Lungs clear throughout and respirations are easy CARDIOVASCULAR: Heart sounds S1 S2 auscultated with no clicks, murmurs, or gallops. ABDOMEN: Soft, bowel sounds clear. Rebound tenderness negative. MUSCULOSKELETAL: Equal strength bilaterally in upper and lower extremities. No deformities noted. SKIN: Normal color, temperature and moisture, no rashes or lesions are noted. DIAGNOSTICS/IMAGING LABS Results for orders placed or performed in visit on 08/30/17 hCG (Human Chorionic Gonadotropin), Quantitative, Result Value Ref Range HCG, Quantitative, , S <0.5 IU/L ASSESSMENT/PLAN #1 Menstrual Irregularity/negative test Serum test was negative. Patient was notified and very reassured. We talked about control and cessation from intercourse to prevent any further pregnancies is she is not interested in getting . ING INSTALLER documented in this encounter Plan of Treatment Not on filedocumented as of this encounter Procedures Procedure Name Priority Date/Time Associated Diagnosis Comme nts HUMAN CHORIONIC STAT 08/30/2017 12:22 Menstrual Results for this GONADOTROPIN (HCG), PM HOUSING INSTALLER Irregularity procedur e are in GABRIEL, the results section. documented in this encounter Results hCG (Human Chorionic Gonadotropin), Quantitative, (08/30/2017 12:22 PM HOUSING INSTALLER) P athologist Signature HCG, <0.5 IU/L 08/30/2017 [facility] Quantitative, 1:08 PM HOUSING INSTALLER [facility] Comment: Biotin has been identified by the fadia bravo as a potential interfering substance. ??Higher concentr ations of biotin may be found in multivitamins, hair/nail supple ments, and workout supplements. ??If the result does not [facility] clinical observations, repeat testing after patient refrains fr om the use of supplements for at least 12 hours. ----REFERENCE VALUE---- <5.0 Negative 5.0-25.0 Indeterminate >25.0 Positive Specimen Anatomical Collection Method Collection Time Receive d Time (Source) Location / / Volume Laterality Blood (Blood, 08/30/2017 12:22 08/30/2017 Venous) PM HOUSING INSTALLER 12:23 PM HOUSING INSTALLER Sarita Almanzar APRN, C.N.P., R.N. LAB BLOOD ADD-ON Performing Organization Address City/State/ZIP Code Phon e Number [facility]- [address] [place], [place] [address] [facility] documented in this encounter Visit Diagnoses Diagnosis Menstrual Irregularity - Primary documented in this encounter
--- OUTSIDE RECORDS SUMMARY | 2022-02-22 12:37 | XMS_ITS | Encounter Summary ---
:1985 Author Organization [facility] Address [address] [place] [address] Care Team Providers Name Role Phone Unavailable Primary Care Provider Unavailable Encounter Details Date Type Department Care Team Description 11/03/2017 Orders Only Department of Maria Del Carmen, Idiopathic Generalized Neurology in Cody Lopez M.D. 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
--- OUTSIDE RECORDS SUMMARY | 2022-02-22 12:37 | XMS_ITS | Encounter Summary ---
:1985 Author Organization [facility] Address [address] [place] [address] Care Team Providers Name Role Phone Patricio Palmer M.D. Primary Care Provider Reason for Visit Reason Onset Date Comments Obtain MRI results from last week 03/20/2018 Pietro Burch Encounter Details Date Type Department Care Team Description 03/20/2018 Clinical Communication Department of Jessica Pickett in MRI results Neurology in Pietro Zuluaga M.D. 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 - 03/28/2018 9:13 AM CDT Patient contacted the [facility] and Dr. Pickett was able to relay results, recommendations and place an order for EMU w/SPECT scan. [facility], please see Dr. Pickett's correspondence, from 03/26, and EMU order to schedule patient on 04/06. Thanks! Telephone Encounter - Mirian Wilburn - 03/23/2018 3:[address] Pickett: Luisa Coulter called in to get the results of her PET scan as you were going to contact her once you have both the MRI and PET results available. Her phone is [phone]. Haylee Combs Telephone Encounter - Mirian Wilburn - 03/22/2018 8:18 AM CDT Nurses, Patient called in because she said she was not able to open the message that was sent to her. I did let her know Maria L's message and also that Dr. Pickett said he would contact her after she has the PET scan on Monday to go over all the results. Haylee oCmbs Telephone Encounter - Maria L José RFlexN. - 03/21/2018 3:16 PM CDT Patient called for the results of her 7T MRI performed on 03/15/18. I am happy to relay those resultsas well as any recommendations for next steps once you have had a chance to review. Telephone Encounter - Mirian Wilburn - 03/20/2018 1:42 PM CDT Please return a call to Luisa Coulter. She is calling to get the results of her MRI scan. Haylee Combs documented in this encounter Plan of Treatment Not on filedocumented as of this encounter Visit Diagnoses Not on filedocumented in this encounter Care Teams Nurse General Duty Relationship Specialty Start Date End Date Patricio Palmer M.D. PCP - General Family Medicine 12/18/[address] [place] [phone] documented as of this encounter
--- OUTSIDE RECORDS SUMMARY | 2022-02-22 12:37 | XMS_ITS | Encounter Summary ---
:1985 Author Organization [facility] Address [address] [place] [address] Care Team Providers Name Role Phone Unavailable Primary Care Provider Unavailable Encounter Details Date Type Department Care Team Description 05/16/2017 Orders Only Department of Obstetrics and Gau Jeronimo sage M.D. 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
--- OUTSIDE RECORDS SUMMARY | 2022-02-22 12:37 | XMS_ITS | Encounter Summary ---
:1985 Author Organization [facility] Address [address] [place] [address] Care Team Providers Name Role Phone Patricio Palmer M.D. Primary Care Provider Reason for Visit Reason Comments Suture / Staple Removal Encounter Details Date Type Department Care Team Description 03/12/2018 Nurse Only Department of Family Patricia Palmer M.D. [address] [place] [phone] Suture / Staple Removal Medicine, [place] Rashida Tinoco, LFlexPFlexN. 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 - 03/12/2018 9:45 AM CDTAssociated Order(s): SUTURE REMOVAL Pre-Procedure Diagnose(s): Laceration Face Initial Post-Procedure Diagnose(s): Laceration Face Initial Suture Removal Date/Time: 03/12/2018 10:46 AM Performed by: RASHIDA TINOCO Authorized by: GUILLERMO MONSON Pre-procedure details: Sutures were placed at [place] facility: yes Indicaton: scheduled suture removal Location: Head/neck Head/neck location: Protestant (right) and lip. Procedure details: Wound appearance: No signs of infection Sutures removed: 7 on spiritism and 3 on lip. Post-procedure details: Procedure completed successfully: yes Complications: no immediate complications Post-removal: No dressing applied documented in this encounter Plan of Treatment Not on filedocumented as of this encounter Procedures Procedure Name Priority Date/Time Associated Diagnosis Comme nts SUTURE REMOVAL Routine 03/12/2018 9:45 AM Laceration Face Resu lts for this CDT Initial procedure are i n the results section . documented in this encounter Results SUTURE REMOVAL (03/12/2018 9:45 AM CDT) Narrative [facility] - 03/12/2018 9:45 AM CDT Rashida Tinoco L.P.N. ? 03/12/2018 10:48 AM Suture Removal Date/Time: 03/12/2018 10:46 AM Performed by: RASHIDA TINOCO Authorized by: GUILLERMO MONSON Pre-procedure details: ??Sutures were placed at [facility]: yes ?Indicaton: scheduled suture removal ?Location: ??Head/neck ??Head/neck location: Protestant (right) an d lip. Procedure details: ??Wound appearance: ??No signs of infec tion ??Sutures removed: 7 on spiritism and 3 on lip. Post-procedure details: ??Procedure completed successfully: yes ?Complications: no immediate complicat ions ?Post-removal: ??No dressing applied Guillermo Monson P.A.-C. PROCEDURE/MINOR SURGICAL ORD ERABLES Performing Organization Address City/State/ZIP Code Phon e Number [facility] NA documented in this encounter Visit Diagnoses Diagnosis Laceration Face Initial Fracture Rib Single Closed Initial Right documented in this encounter Care Teams Bristle Machine Operator Relationship Specialty Start Date End Date Patricio Palmer M.D. PCP - General Family Medicine 12/18/[address] [place] [phone] documented as of this encounter
--- OUTSIDE RECORDS SUMMARY | 2022-02-22 12:37 | XMS_ITS | Encounter Summary ---
:1985 Author Organization [facility] Address [address] [place] [address] Care Team Providers Name Role Phone Patricio Palmer M.D. Primary Care Provider Reason for Visit Reason Onset Date Comments Ra/Piyush 03/06/2018 Encounter Details Date Type Department Care Team Description 03/06/2018 Clinical Communication Department of Pietro Pickett/Piyush Neurology gavino Zuluaga M.D. [place], [place] [address] [facility] [address] [place] [phone] Social History Tobacco Use Types Packs/Day Years [...] or relatives? How often do you attend tenriism or 1 to 4 times per year 05/18 sabianism services? 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 - 03/07/2018 7:49 AM CDT Yes Telephone Encounter - Rufino Garcia - 03/06/2018 5:[address] Pickett, Patient is calling to schedule ED follow up. There is an order in [place] along with on for blood work.Patient had seizure in the shower and was taken to ED where she received 17 stitches. She would liketo see you for follow up this Monday at 2PM. Can she be added on? Rufino Combs/JESSICA documented in this encounter Plan of Treatment Not on filedocumented as of this encounter Visit Diagnoses Not on filedocumented in this encounter Care Teams Security System Analyst Relationship Specialty Start Date End Date Patricio Palmer M.D. PCP - General Family Medicine 12/18/[address] [place] [phone] documented as of this encounter
--- OUTSIDE RECORDS SUMMARY | 2022-02-22 12:37 | XMS_ITS | Encounter Summary ---
:1985 Author Organization [facility] Address [address] [place] [address] Care Team Providers Name Role Phone Patricio Palmer M.D. Primary Care Provider Reason for Visit Reason Comments Med Refill Encounter Details Date Type Department Care Team Description 02/07/2018 Refill Department of Neurology in [place] Pietro sheikh M.D. Med Refill [address], [place] [address] [facility] [address] [place] [address] [place] [address] [phone] Social History Tobacco Use Types Packs/Day Years [...] 1 to 4 times per year 05/18 buddhist services? 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 PCP - General Family Medicine 12/18/[address] [place] [phone] documented as of this encounter
--- OUTSIDE RECORDS SUMMARY | 2022-02-22 12:37 | XMS_ITS | Encounter Summary ---
:1985 Author Organization [facility] Address [address] [place] [address] Care Team Providers Name Role Phone Unavailable Primary Care Provider Unavailable Reason for Visit Reason Comments Fall pt fell on the stairs of an outside deck with resulting left rib pain. The fall occurred as about 1999 on 09/03/17 Rib Injury Encounter Details Date Type Department Care Team Description 09/04/2017 Emergency [place] [facility] Maria L Jeffries, Fracture Rib Single Department P.A.-C. 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 documented as of this encounter Last Filed Vital Signs Vital Sign Reading Time Taken Comments Blood Pressure 98/78 09/04/2017 12:45 PM SENIOR INFORMATICA DEVELOPER Pulse 79 09/04/2017 12:45 PM SENIOR INFORMATICA DEVELOPER Temperature 36.7 ??C (98.1 ??F) 09/04/2017 11:45 AM SENIOR INFORMATICA DEVELOPER Respiratory Rate 18 09/04/2017 11:45 AM SENIOR INFORMATICA DEVELOPER Oxygen Saturation 98% 09/04/2017 12:45 PM SENIOR INFORMATICA DEVELOPER Inhaled Oxygen Concentration - - Weight - - Height - - Body Mass Index - - documented in this encounter Discharge Instructions AttachmentsThe following attachments cannot be sent through Care Everywhere.Rib Fracture [place]r (Irish)documented in this encounter Medications at Time of [...] mouth 2 (two) times tablet a day. lidocaine (for_LIDODERM) Place 1 patch on the 15 patch 0 0 09/04/2017 09/19/2017 5 % skin daily for 15 days. Remove & discard patch within 12 hours or as directed by . naproxen (for_NAPROSYN) Take 1 tablet (500 30 tablet 0 08/1709/06/2017 500 mg tablet mg total) by mouth 2 (two) times a day with meals for 15 days. documented as of this encounter ED Notes Maria L Jeffries P.A.-C. - 09/04/2017 12:20 PM CST SUBJECTIVE CHIEF COMPLAINT/REASON FOR VISIT Fall (pt fell on the stairs of an outside deck with resulting left rib pain. The fall occurred as about 1999 on 09/03/17) and Rib Injury HISTORY OF PRESENT ILLNESS Pt is a 32 year old female who presents to the ED for evaluation of left rib pain after fall. Pt reports she fell las evening around 1999 at home while walking up 3 steps onto their porch, it was slippery and she fell landing on her left chest wall. She has taken tylenol and iced her left ribs. She presents today because she has continued pain, slight cough productive of clear sputum and dyspnea withdeep breathing. She also feels some popping or crunching in her left lower ribs. She denies . Denies any other injury from last night. No neck or back pain. No extremity pain. She does have hx of Epilepsy with seizure 3-4 days ago, has ecchymosis of right eye which she statesis from her seizure. She denies any concerns for domestic violence, states she is in a good relationship. REVIEW OF SYSTEMS Eyes: Negative for visual disturbance. Respiratory: Positive for cough. Negative for hemoptysis. Cardiovascular: Left sided rib pain Gastrointestinal: Negative for abdominal pain and nausea. Genitourinary: Negative for hematuria. Denies Musculoskeletal: Negative for back pain, neck pain and extremity pain. Skin: Ecchymosis right eye Neurological: Negative for light-headedness, numbness and headaches. Seizure 3-4 days ago OBJECTIVE Initial Vitals [09/04/17 1145] Temperature Pulse Rate Heart Rate Resp Rate Blood Pressure SpO2 36.7 ??C 77 -- 18 (!) 129/94 99 % Pain Score -- PHYSICAL EXAMINATION Constitutional: She appears well-developed and well-nourished. No distress. Eyes: EOM are normal. Pupils are equal, round, and reactive to light. Neck: Normal range of motion. Neck supple. No cervical spine tenderness Cardiovascular: Regular rhythm and normal heart sounds. Capillary refill: takes less than 3 seconds, Pulmonary/Chest: Effort normal and breath sounds normal. There is normal air entry. No respiratory distress. She has no wheezes. She has no rhonchi. She has no rales. Chest wall: no ecchymosis or crepitus. Pt has focal tenderness left lower anterior ribs 8-10 Abdominal: Soft. Bowel sounds are normal. There is no tenderness. Musculoskeletal: Normal range of motion. She exhibits no tenderness or deformity. Cervical, thoracic and lumber: no midline tenderness Neurological: She is alert and oriented to person, place, and time. Skin: Skin is warm and dry. ASSESSMENT/PLAN Impression and Plan Pt has 8th rib fracture which is mildly displaced. No pneumothorax and pt is vitally stable. Pt was given toradol IM and lidoderm patch in the Ed. Plan to d/c home with incentive spirometry, naproxen and lidoderm patches. Discussed rest, no heavy lifting, icing the area, may use tylenol as well. Will schedule f/u in clinic to reexamine in approx 1 week. Otherwise RTED if symptoms worsen, such has productive cough, fevers, chills or dyspnea. . Radiology results: Personally reviewed the radiology image and Reviewed the radiology report. Radiology interpretation: Abnormal ED Course as of Sep 04 1300 Mon Sep 04, 2017 1245 X rays reveal mildly displaced left 8th rib fracture which is consistent with clinical exam Final Diagnoses: as of Sep 04 1300 Fracture Rib Single Closed Initial Right Maria L Jeffries P.A.-C. 09/04/17 1303 OR INFORMATICA DEVELOPER Salas Jackson R.N. - 09/04/2017 11:57 AM CST The patient fell on the stairs of an outside deck with resulting left rib pain. The fall occurred 1999 on 09/03/17. The pt took ibuprofen at 0930. Salas Jackson R.N. 09/04/17 1158 OR INFORMATICA DEVELOPER documented in this encounter Plan of Treatment Not on filedocumented as of this encounter Procedures Procedure Name Priority Date/Time Associated Comments Diagnosis DX RIBS LEFT 2 VIEWS RAD - Semiurgent 09/04/2017 Res ults for WITH CHEST (Fast; most ED 12:32 PM SENIOR INFORMATICA DEVELOPER this procedur e POSTEROANTERIOR 1 VIEW patients; some are in the inpatients) results section. documented in this encounter Results DX Ribs Left 2 Views with Chest Posteroanterior 1 View (09/04/2017 12:32 PM SENIOR INFORMATICA DEVELOPER) Anatomical Region Laterality Modality Ribs, Chest Left Computed Radiography Specimen (Source) Anatomical Collection Method Collection Time Re ceived Time Location / / Volume Laterality 09/04/2017 12:33 PM SENIOR INFORMATICA DEVELOPER Impressions 09/04/2017 12:34 PM SENIOR INFORMATICA DEVELOPER IMPRESSION: 1. Mildly displaced left eighth anterola teral rib fracture. 2. No acute cardiopulmonary disease. Narrative 09/04/2017 12:34 PM SENIOR INFORMATICA DEVELOPER EXAM: DX RIBS LEFT 2 VIEWS WITH CHEST POSTEROANTERIOR 1 VIEW COMPARISON: None. FINDINGS: Heart size, cardiomediastinal, hilar contours are within normal limits. Lungs are clear. No pleural effu jennifer. No pulmonary vascular congestion. No pneumothorax. Mildly displaced left eighth anterolater al rib fracture. Procedure Note Amari Avendaño M.D. - 09/04/2017For matting of this note might be different from the original. EXAM: DX RIBS LEFT 2 VIEWS WITH CHEST PO STEROANTERIOR 1 VIEW COMPARISON: None. FINDINGS: Heart size, cardiomediastinal, hilar contours are within normal limits. Lungs are clear. No pleural effu jennifer. No pulmonary vascular congestion. No pneumothorax. Mildly displaced left eighth anterolater al rib fracture. IMPRESSION: 1. Mildly displaced left eighth anterola teral rib fracture. 2. No acute cardiopulmonary disease. Maria L [facility] PROCE KIM documented in this encounter Visit Diagnoses Diagnosis Fracture Rib Single Closed Initial Right - Primary documented in this encounter Administered Medications Inactive Administered Medications - up to 3 most recent administrations Medication Order MAR Action Action Date Dose Rate Site ketorolac injection 30 mg Given 09/04/2017 12:40 PM 30 mg Right Dorsogluteal (for_TORADOL) SENIOR INFORMATICA DEVELOPER 30 mg, intramuscular, Once, On 09/04/17 at 1221, For 1 dose, Adult IV push rate: Over 15 seconds. Peds IV push rate: Over 1 minute. 60 mg dose only for IM, not recommended for IV., Drug Monitoring Program: Pharmacist to adjust medication order based on comorbities and indication. lidocaine 5 % 1 patch Medication Applied 09/04/2017 12:47 PM 1 patch Other (for_LIDODERM) SENIOR INFORMATICA DEVELOPER 1 patch, transdermal, Administer over 12 Hours, Once, On Mon09/04/17 at 1221, For 1 dose documented in this encounter Active and Recently Administered Medications Times are shown in SENIOR INFORMATICA DEVELOPER. Scheduled Medication Order 09/02/2017 09/03/2017 09/04/2017 ketorolac injection 30 mg (for_TORADOL) (COMPLETED) 1240 (Given - Provider: Salas Jackson R.N.) 30 mg, intramuscular, Once, On Mon at 1221, For 1 dose, Adult IV push rate: Over 15 seconds. Peds IV push rate: Over 1 minute. 60 mg dose only for IM, not recommended for IV., Drug Monitoring Pr ogram: Pharmacist to adjust medication o rder based on comorbities and indication. lidocaine 5 % 1 patch (for_LIDODERM) 1247 (Medication Applied - Provider: Salas Jackson R.N. - Comment: left rib cage)1308 (Due: Medication Removed - Provider: Discharge Provider, Automatic - Comment: Time automatically adjusted from order being discontinued) 1 patch, transdermal, Administer over 12 Hours, Once, On Mon09/04/17 at 1221, For 1 dose documented in this encounter
--- OUTSIDE RECORDS SUMMARY | 2022-02-22 12:37 | XMS_ITS | Encounter Summary ---
:1985 Author Organization [facility] Address [address] [place] [address] Care Team Providers Name Role Phone Patricio Palmer M.D. Primary Care Provider Reason for Visit Reason Comments Med Refill Encounter Details Date Type Department Care Team Description 04/16/2018 Refill Department of Neurology in [facility] Alvaro parikh M.D. 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 PCP - General Family Medicine 12/18/[address] [place] [phone] documented as of this encounter
--- OUTSIDE RECORDS SUMMARY | 2022-02-22 12:37 | XMS_ITS | Encounter Summary ---
:1985 Author Organization [facility] Address [address] [place] [address] Care Team Providers Name Role Phone Unavailable Primary Care Provider Unavailable Reason for Visit Reason Comments Fall seen in ER on Mon. 09-04 brok en rib, fell on the ice. meds that were given are not helping, Encounter Details Date Type Department Care Team Description 09/06/2017 Office Visit Urgent Care in [place] [facility] [facility] in Rib (Primary Dx) [place] L, AUTOMATION AND CONTROLS INSTRUCTOR, C.N.P., [facility] [place] [phone] [address] [facility] [phone] [place] Onofre [id number] Social History Tobacco Use Types Packs/Day Years [...] or slept in a snf (including now)? 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 documented as of this encounter Last Filed Vital Signs Vital Sign Reading Time Taken Comments Blood Pressure 110/74 09/06/2017 10:54 AM ENDLESS STEAMER TENDER Pulse 80 09/06/2017 10:54 AM ENDLESS STEAMER TENDER Temperature 36.8 ??C (98.2 ??F) 09/06/2017 10:54 AM ENDLESS STEAMER TENDER Respiratory Rate 18 09/06/2017 10:54 AM ENDLESS STEAMER TENDER Oxygen Saturation 99% 09/06/2017 10:54 AM ENDLESS STEAMER TENDER Inhaled Oxygen Concentration - - Weight 55.2 kg (121 lb 11.1 oz) 09/06/2017 10:54 AM ENDLESS STEAMER TENDER Height 163 cm (5' 4.17) 09/06/2017 10:54 AM ENDLESS STEAMER TENDER Body Mass Index 20.78 09/06/2017 10:54 AM ENDLESS STEAMER TENDER documented in this encounter Progress Notes Sarita Lutz, SPENSER, C.N.P. - 09/06/2017 10:45 AM CST CHIEF COMPLAINT / REASON FOR VISIT Fall (seen in ER on 09-04 broken rib, fell on the ice. meds that were given are not helping,). HISTORY OF PRESENT ILLNESS Luisa Coulter is a 32 y.o. female with history of tobacco abuse, substance abuse in remission, seizures, nephrolithiasis a who presents for evaluation of rib pain. Patient was seen on 09/04 in the emergency room for a mildly displaced 8th rib fracture. The patient stated this occur when she sli pped on the ice and fell on her back. She was given lidocaine patch at that time and an incentive spirometer and naproxen. She has used that for few days and states that the pain continues. She states she has had no hemoptysis or cough with this or signs of pneumonia, weakness dizziness, or any feversor chills. She said it moved to she twists and turns that she has difficulty taking care of her 2 children which are very active she states. She does have history of methamphetamine and heroin abuse inthe past. The patient's allergies, medications, and problem list were reviewed in the electronic medical record. Brief Review of Systems: A brief review of systems was negative except for that mentioned in the history of present of illness. PHYSICAL EXAM BP 110/74 (BP Location: Left arm, Patient Position: Sitting, Cuff Size: Regular) Pulse 80 Temp 36.8 ??C (Temporal) Resp 18 Ht 163 cm Wt 55.2 kg LMP 08/10/2017 (Exact Date) SpO2 99% BMI 20.78 kg/m?? Body mass index is 20.78 kg/m??. GENERAL: Alert in no acute distress HEAD/NECK: Moves in full range of motion. MUSCULOSKELETAL: Tenderness to palpation to the back. Pt has back flexion at full range, hyperextension of the back is normal, Lateral motion pain bilat, rotational motion pain bilaterally, anterior lateral rib pain at approximately the 8th rib space. No bruising or any deformities or flail chest noted. Patient is which sore in her expiratory cycle normal. Patient moves well in the room without any obvious discomfort. DIAGNOSTICS: None ASSESSMENT/PLAN: #1 Pain Rib Given patient's history of drug abuse explained to the patient we should avoid any narcotics, and can try Toradol 10 mg p.o. every 6-8 hours over the next 5 days. I have instructed her to stop the Naproxen. She may use Tylenol along with this up to 4000 mg per day in between dosing. She can continue to use her lidocaine patch and ice and heat treatments as previously discussed. I did explain that ribpain can last several weeks but she should improve on a bit every week and just to watch her body mechanics and heavy lifting as previously discussed. She should continue her incentive spirometry and stay active. She is concerned about prolonged pain and therefore I will set her up with primary care to follow up within 2 weeks to address these issues, as any chronic pain management would have to be initiated from a primary care doctor.. New Medications Ordered This Visit Medications ??? ketorolac (for_TORADOL) 10 mg tablet Sig: Take 1 tablet (10 mg total) by mouth every 6 (six) hours as needed for pain or moderate pain or score 4-6 of 10 for up to 5 days. Dispense: 20 tablet Refill: 0 OTC medications discussed with patient. Avoid heavy lifting or strenuous activity as discussed at visit. Follow up if new, worsening, or persistent symptoms develop, and seek medical attention for furtherevaluation. Patient and/or family verbalizes understanding and acceptance of this plan of care and denies further needs at this time. ADDEN: Call received from pt that Toradol was not covered by her insurance and she would like a different pain medication ordered. I called [facility] and Sonny, the pharmacist was able to run, Mobic 15 mg po daily, successfully through the patient's insurance with no cost to the patient, therefore, a verbal order given to fill this for 10 days. Pt was called back by nursing with this information and [facility]the [facility]. In addition, explained that it is important for her to have a primary care doctor, especially if she has ongoing pain issues or medication needs. ESS STEAMER TENDER documented in this encounter Plan of Treatment Not on filedocumented as of this encounter Visit Diagnoses Diagnosis Pain Rib - Primary documented in this encounter
--- OUTSIDE RECORDS SUMMARY | 2022-02-22 12:37 | XMS_ITS | Encounter Summary ---
:1985 Author Organization [facility] Address [address] [place] [address] Care Team Providers Name Role Phone Patricio Palmer M.D. Primary Care Provider Reason for Referral Outpatient (Routine) - Closed Specialty Diagnoses / Procedures Referred By Contact Refer red To Contact Diagnoses Epilepsy Seizure Not Intractable Without Status Epilepticus (HCC) Pietro Pickett M.D. [place] [facility] Procedures PET CT Brain Metabolic AR PET BRAIN METABOLIC EVAL HC PET BRAIN METABOLIC EVAL AR PET BRAIN METABOLIC EVAL [address] [place] [address] [phone] Referral ID Status Reason Start Date Expiration Date Visits Requ ested Visits Authorized [id number] Closed 03/09/2018 03/09/2019 6 6 MRI/CAT/PET Scan (Routine) - Closed Specialty Diagnoses / Procedures Referred By Contact Refer red To Contact Radiology Diagnoses Epilepsy Seizure Not Intractable Without Status Epilepticus (HCC) Pietro Pickett M.D. [place] [facility] Procedures MR Brain without IV Contrast AR MRI BRAIN WO CNTRST HC MRI BRAIN WO CNTRST [address] [place] [address] [phone] Referral ID Status Reason Start Date Expiration Date Visits Requ ested Visits Authorized [id number] Closed 03/09/2018 03/09/2019 1 1 Reason for Visit Outpatient (Routine) - Closed Specialty Diagnoses / Procedures Referred By Contact Refer red To Contact Neurology Pietro Pickett M.D. [facility] [address] [place] [phone] Referral ID Status Reason Start Date Expiration Date Visits Requ ested Visits Authorized [id number] Closed 02/07/2018 02/07/2019 1 1 Encounter Details Date Type Department Care Team Description 03/09/2018 Office Visit Department of Pietro Pickett Focal Epil epsy Symptomatic Intractable Without Status Epilepticus (HCC) (Primary Dx); Neurology in [place] Epilepsy Seizure Not Intractable Without Status Epilepticus (HCC) [place], [place] [address] [facility] [address] [place] [phone] Social History Tobacco Use Types Packs/Day Years Used Date Smoking Tobacco: Every Day Cigarettes 1.5 Smokeless Tobacco: Never Tobacco Cessation: Counseling Given: No Alcohol Use Standard Drinks/Week Comments [...] [facility] [place] [facility] ([facility] 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 - 03/09/2018 2:00 PM CDT CHIEF COMPLAINT / REASON FOR VISIT Luisa Coulter is a 33 y.o. female who returns for evaluation of epilepsy. INTERIM HISTORY Ms. Coulter returns in followup. She has been experiencing an increase in seizures. The last 1 resulted in a right facial laceration which required stitches. She also suffered a laceration on her lip and chin which required stitches the latter of which got infected. She gets no warning. Blood tests showed lacosamide level is in the reference range but lamotrigine level was a little lowat 2.0. She currently takes 100 mg twice daily of both lamotrigine and lacosamide. Previous evaluation included a MRI head epilepsy protocol which was negative. Previous EEG showed bifrontal epileptiform abnormalities. EEG monitoring showed for seizures each arising from the left hemisphere most likely but precise localization was not possible. One seizure showed left parietal onset, the 2nd seizure showed bifrontal onset with spread to the left hemisphere, the 3rd seizure showed bifrontal onset with subsequent involvement of the left parietal and temporal region, the 4th seizure showed midline and bifrontal onset. Current seizure frequency: Seizures weekly to monthly CURRENT SEIZURE THERAPY: Lacosamide Lamotrigine VNS:No RNS:No Previous medications: Carbamazepine, valproic acid, levetiracetam ALLERGY: Allergies Allergen Reactions ??? Hydrocodone-Acetaminophen Hives and Rash Swelling of feet, hands, face, some shortness of breath ??? [place] Rash ??? Tomato (Solanum Lycopersicum) Rash ??? Tramadol Other (see comments) REVIEW OF SYSTEMS Neurological: Positive for seizures and loss of consciousness. The following systems were negative: Constitutional, Skin, Eyes, ENT, CV, Respiratory, GI, , Hematologic, Musculoskeletal, Psych OBJECTIVE There were no vitals taken for this visit. PHYSICAL EXAM Exam is unchanged from admission. EEG: Not done LABS: Lamotrigine level 2.0 (range 2.5-15). Lacosamide level 4.8 (range 1-10). 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 Coulter continues to have medically intractable seizures. Previous epilepsy protocol MRI did not show a causative lesion. Previous EEG monitoring somewhat lateralize seizure onset to the left hemisphere, to the seizures suggested possible left parietal involvement, however bifrontal involvement was also noted. Some lesional epilepsy ease may give rise to poorly localizable EEG seizure discharges. There is a family history of seizures but alcohol his attributed as playing a causative role in herfamily members who have seizures. Therefore we do not have definitive evidence of a hereditary cause. Plan: I recommended a 7 david MRI. The purpose is to look for a causative lesion which if present could potentially lead to a surgical intervention. I also recommended a PET scan as PET sometimes will reveala focal abnormality in the absence of an obvious structural abnormality on MRI. I increased her lamotrigine dose to 200 mg twice daily telling her to take 100 mg 3 times daily for 1 week then 200 mg twice daily thereafter. I sent a new prescription to her home pharmacy. I will contact her following her MRI and PET scan. TIME: Alrg-ra-lved time was 40 minutes with greater than 50% spent in counseling and coordination ofcare. documented in this encounter Plan of Treatment Not on filedocumented as of this encounter Results PET CT Brain Metabolic (03/23/2018 11:24 AM CDT) Anatomical Region Laterality Modality Brain, Nuclear Medicine PET RST LOS N/A Posi elizabeth Emission Tomography (PET) Specimen (Source) Anatomical Collection Method Collection Time Re ceived Time Location / / Volume Laterality 03/23/2018 12:07 PM CDT Impressions 03/23/2018 12:38 PM CDT IMPRESSION: ??Normal FDG brain PET/CT. Narrative 03/23/2018 12:38 PM CDT EXAM: ??PET CT BRAIN METABOLIC EVALUATION Finger stick glucose level at the time o f the PET scan injection was 91 mg/dL. RADIOPHARMACEUTICAL/MEDS: Route: intravenous fludeoxyglucose F 18 injection GROUP HOME (FDG F-18),11.98 millicurie TECHNIQUE: F-18 FDG PET/CT scan was perf ormed of the brain with CT fusion imaging for attenuation correction and a natomic coregistration only, with imaging beginning at approximately 30 mi nutes after radiotracer injection. Cortex ID performed. COMPARISON: ??Brain MRI from 03/15/2018. INDICATION: ??Epilepsy localization FINDINGS: ??No focal areas of hypometabo lism. Specifically no abnormality seen in the superior left temporal lobe to corre spond with the nonspecific signal abnormality noted on the comparison MRI. Procedure Note Miguel Graves M.D. - 03/23/2018Formatti ng of this note might be different from the original. EXAM: PET CT BRAIN METABOLIC EVALUATION Finger stick glucose level at the time o f the PET scan injection was 91 mg/dL. RADIOPHARMACEUTICAL/MEDS: Route: intravenous fludeoxyglucose F 18 injection GROUP HOME (FDG F-18),11.98 millicurie TECHNIQUE: F-18 FDG PET/CT scan was perf ormed of the brain with CT fusion imaging for attenuation correction and a natomic coregistration only, with imaging beginning at approximately 30 mi nutes after radiotracer injection. Cortex ID performed. COMPARISON: Brain MRI from 03/15/2018. INDICATION: Epilepsy localization FINDINGS: No focal areas of hypometaboli sm. Specifically no abnormality seen in the superior left temporal lobe to corre spond with the nonspecific signal abnormality noted on the comparison MRI. IMPRESSION: Normal FDG brain PET/CT. Pietro Pickett M.D. IMG NM PROCEDURES MR Brain without IV Contrast (03/15/2018 2:44 PM CDT) Anatomical Region Laterality Modality Head, Brain, Neuroradiology RST LOS N/A [facility] Resonance Specimen (Source) Anatomical Collection Method Collection Time Re ceived Time Location / / Volume Laterality 03/15/2018 2:52 PM CDT Impressions 03/15/2018 3:03 PM CDT IMPRESSION: Stable nonspecific signal abnormality in the superior left temporal lobe. Narrative 03/15/2018 3:03 PM CDT EXAM: MR BRAIN WITHOUT IV CONTRAST COMPARISON: MRI head 06/10/2015. FINDINGS: Stable nonspecific curvilinear area of T2/FLAIR signal abnormality in the subcortical white matter of the left superior temporal gyrus (series 9, image 229; series 20, image 28; series 1 2, image 36). No definite additional areas of signal abnormality. The hippoca mpal formations appear normal. 7 mm pineal cyst. Some images are degraded by patient motion. Procedure Note Sharon Hemphill M.D. - 03/15/2018Forma tting of this note might be different from the original. EXAM: MR BRAIN WITHOUT IV CONTRAST COMPARISON: MRI head 06/10/2015. FINDINGS: Stable nonspecific curvilinear area of T2/FLAIR signal abnormality in the subcortical white matter of the left superior temporal gyrus (series 9, image 229; series 20, image 28; series 1 2, image 36). No definite additional areas of signal abnormality. The hippoca mpal formations appear normal. 7 mm pineal cyst. Some images are degraded by patient motion. IMPRESSION: Stable nonspecific signal ab normality in the superior left temporal lobe. Pietro Pickett M.D. IMG MRI PROCEDURES documented in this encounter Visit Diagnoses Diagnosis 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) - Primary Epilepsy Seizure Not Intractable Without Status Epilepticus (HCC) Epilepsy Seizure Not Intractable Without Status Epilepticus (HCC) Epilepsy Seizure Not Intractable Without Status Epilepticus (HCC) documented in this encounter Care Teams Bunch Maker Hand Relationship Specialty Start Date End Date Patricio Palmer M.D. PCP - General Family Medicine 12/18/[address] [place] [address] [phone] documented as of this encounter
--- OUTSIDE RECORDS SUMMARY | 2022-02-22 12:37 | XMS_ITS | Encounter Summary ---
:1985 Author Organization [facility] Address [address] [place] [address] Care Team Providers Name Role Phone Unavailable Primary Care Provider Unavailable Encounter Details Date Type Department Care Team Description 09/25/2017 Orders Only [facility], João Rivas M .D. 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
--- OUTSIDE RECORDS SUMMARY | 2022-02-22 12:37 | XMS_ITS | Encounter Summary ---
:1985 Author Organization [facility] Address [address] [place] [address] Care Team Providers Name Role Phone Patricio Palmer M.D. 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 PCP - General Family Medicine 12/18/[address] [place] [address] [phone] documented as of this encounter
--- OUTSIDE RECORDS SUMMARY | 2022-02-22 12:37 | XMS_ITS | Encounter Summary ---
:1985 Author Organization [facility] Address [address] [place] [address] Care Team Providers Name Role Phone Patricio Palmer M.D. Primary Care Provider Reason for Visit Reason Comments Head Injury Pt reports that she had a se izure while in the shower and she fell hitting her head on the soap dish. No pain relievers taken. Rates the pain at an 8/10. Encounter Details Date Type Department Care Team Description 03/05/2018 - Emergency [place] Guillermo Monson, Laceration Face Initial (Primary Dx); 03/06/2018 Department P.A.-C. 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 Epilepsy Pzps-wt-[id number] (Armenian)Stitches [place] or Adhesive Wound Closure Izrm-ng-Qsvo (Armenian)documented in this encounter Medications at Time of [...] a day. documented as of this encounter Procedure Notes Guillermo Monson P.A.-C. - 03/06/2018 12:44 AM CDTAssociated Order(s): LACERATION REPAIR; LACERATION REPAIR; LACERATION REPAIR Procedure Laceration Repair Date/Time: 03/06/2018 12:44 AM Performed by: GUILLERMO MONSON Authorized by: GUILLERMO MONSON Consent: Consent obtained: Verbal Consent given by: Patient The benefits, risks and alternatives to the possible need for blood products were discussed with the patient and/or decision maker.: Not addressed Rolla protocol: All relevant documentation and testing were reviewed and available. All required blood products, implants, devices and/or special equipment were made available as applicable. The pre-procedure verification was conducted, the correct site was marked if required, and the procedural time out was conducted prior to performing the procedure and confirmed in a procedural pause.: yes Pre-procedure details: Indication: laceration Location: Scalp Scalp location: Right temporal Length (cm): 3 Area cleansed with: Saline Amount of cleaning: Standard Irrigation solution: Sterile saline Irrigation method: Pressure wash Foreign body imaging: None Appropriate hand hygiene, gown, cap, mask, protective eyewear, sterile gloves, skin preparation, sterile drape, and strict aseptic technique were utilized as applicable for the procedure.: Yes Sedation/Anesthesia (see MAR for exact dosages): Anesthesia method: Local infiltration Local anesthetic: Lidocaine 2% WITH epi Procedure details: Repair type: Simple Limited defect created (wound extended): no Hemostasis achieved with: Epinephrine Contaminated: no Wound exploration: entire depth of wound probed and visualized Wound extent: no fascia violation noted and no foreign bodies/material noted Repair method: Sutures Suture size: 5-0 Suture material: Nylon Suture technique: Simple interrupted Number of sutures: 7 Approximation: Close Post-procedure details: Procedure completed successfully: yes Tetanus status up to date: Up to date Dressing Applied: yes Dressing applied: Adhesive bandage Complications: no immediate complications Laceration Repair Date/Time: 03/06/2018 12:49 AM Performed by: GUILLERMO MONSON Authorized by: GUILLERMO MONSON Consent: Consent obtained: Verbal Consent given by: Patient The benefits, risks and alternatives to the possible need for blood products were discussed with the patient and/or decision maker.: Not addressed Rolla protocol: All relevant documentation and testing were reviewed and available. All required blood products, implants, devices and/or special equipment were made available as applicable. The pre-procedure verification was conducted, the correct site was marked if required, and the procedural time out was conducted prior to performing the procedure and confirmed in a procedural pause.: yes Pre-procedure details: Indication: laceration Location: Face Face location: Chin Length (cm): 0.5 Area cleansed with: Saline Amount of cleaning: Standard Irrigation solution: Sterile saline Irrigation method: Pressure wash Appropriate hand hygiene, gown, cap, mask, protective eyewear, sterile gloves, skin preparation, sterile drape, and strict aseptic technique were utilized as applicable for the procedure.: Yes Sedation/Anesthesia (see MAR for exact dosages): Anesthesia method: Local infiltration Local anesthetic: Lidocaine 2% WITH epi Procedure details: Repair type: Simple Limited defect created (wound extended): no Hemostasis achieved with: Epinephrine Contaminated: no Wound exploration: entire depth of wound probed and visualized Wound extent: no foreign bodies/material noted Repair method: Sutures Suture size: 5-0 Suture material: Nylon Suture technique: Simple interrupted Number of sutures: 1 Approximation: Close Post-procedure details: Procedure completed successfully: yes Tetanus status up to date: Up to date Dressing Applied: yes Dressing applied: Adhesive bandage Complications: no immediate complications Laceration Repair Date/Time: 03/06/2018 12:50 AM Performed by: GUILLERMO MONSON Authorized by: GUILLERMO MONSON Consent: Consent obtained: Verbal The benefits, risks and alternatives to the possible need for blood products were discussed with the patient and/or decision maker.: Not addressed Rolla protocol: All relevant documentation and testing were reviewed and available. All required blood products, implants, devices and/or special equipment were made available as applicable. The pre-procedure verification was conducted, the correct site was marked if required, and the procedural time out was conducted prior to performing the procedure and confirmed in a procedural pause.: yes Pre-procedure details: Indication: laceration Location: Lip Lip location: Upper exterior lip Length (cm): 1 Amount of cleaning: Standard Irrigation solution: Sterile saline Irrigation method: Pressure wash Foreign body imaging: None Appropriate hand hygiene, gown, cap, mask, protective eyewear, sterile gloves, skin preparation, sterile drape, and strict aseptic technique were utilized as applicable for the procedure.: Yes Sedation/Anesthesia (see MAR for exact dosages): Anesthesia method: Local infiltration and topical application Topical anesthetic: LET Local anesthetic: Lidocaine 2% WITH epi (Initial lidocaine injection didn't provide adequate anesthesia; LET gel administered.) Procedure details: Repair type: Simple Limited defect created (wound extended): no Hemostasis achieved with: Epinephrine and LET Contaminated: no Wound exploration: entire depth of wound probed and visualized Repair method: Sutures Suture size: 6-0 Suture material: Nylon Suture technique: Simple interrupted Number of sutures: 3 Approximation: Close Post-procedure details: Procedure completed successfully: yes Tetanus status up to date: Up to date Dressing Applied: no Complications: no immediate complications Comments: Since the laceration crossed the [place] border; I offered to leave this open and have the pt seeplastic surgery for closure to assure the best cosmesis. She refused that route and asks to have thelaceration closed now and accepts the chance of irregularity at the [place] border. Guillermo Monson P.A.-C. 03/06/18 0117 documented in this encounter ED Notes Guillermo Monson P.A.-C. - 03/05/2018 11:24 PM CDT Images from the original note were not included. SUBJECTIVE CHIEF COMPLAINT/REASON FOR VISIT Head Injury (Pt reports that she had a seizure while in the shower and she fell hitting her head on the soap dish. No pain relievers taken. Rates the pain at an 8/10.) HISTORY OF PRESENT ILLNESS Pt comes to the ED for evaluation of facial lacerations after a seizure. Pt states she was taking a shower then woke on the floor of the shower, somewhat confused. She feels she had a seizure and struck the soap dish on the wall during the event. She has generalized motor seizures about every 1-2 weeks; her last one was nearly 2 weeks ago. The seizure was not witnessed. Occurred about 15-30 min CHEMIST ENZYMES at the ED. Her boyfriend had left the house for about 10 minutes and when he returned, the pt was no longer post-ictal. He states the pt's post- ictal state is usually 20-30 min. Pt states she sustained lacerations to the right sabianism, upper lip, chin and has some blood from herright lower gingiva, but states her teeth feel secure and line up normally. She denies any jaw pain or change in speech articulation. She is alert and oriented X3; denies any headache, visual changes, auras, dizziness, otalgia/tinnitus, sore throat, recent illnesses, fevers, chills, CP, SOB, abd pain, n/v, extremity pain or weakness,numbness/tingling or other complaints. Boyfriend states that pt is sometimes non-compliant with her m edications but she states she has been compliant recently. Denies any drug or alcohol use. PMH, surgical history, medications and social history reviewed with the pt as per EMR and found to be correct History provided by: Patient and significant other Seizures Seizure activity on arrival: no Seizure type: Unable to specify Preceding symptoms: no sensation of an aura present, no dizziness, no euphoria, no headache, no hyperventilation, no nausea, no numbness, no panic and no vision change Initial focality: Unable to specify Postictal symptoms: confusion and memory loss Return to baseline: yes Severity: Unable to specify Timing: Unable to specify Number of seizures this episode: Unknown Context: stress Context: not alcohol withdrawal, not change in medication, not sleeping less, not developmental delay, not drug use, not emotional upset, not fever, not flashing visual stimuli, not hydrocephalus, not intracranial lesion, not intracranial shunt, medical compliance (questionable; pt denies), not possible hypoglycemia, not possible medication ingestion, not and not previous head injury Recent head injury: No recent head injuries CHEMIST ENZYMES treatment: None History of seizures: yes Date of most recent prior episode: 2 weeks ago Seizure control level: Poorly controlled Current therapy: Lamotrigine Compliance with current therapy: Variable Laceration Location: Mouth and face Facial laceration location: right sabianism; right chin. Mouth laceration location: Lower gingiva, lower inner lip and upper outer lip Depth: Through dermis Quality: jagged Laceration mechanism: Fall Pain details: Quality: Aching Severity: Mild Foreign body present: No foreign bodies Ineffective treatments: None tried Tetanus status: Up to date Associated symptoms: no numbness and no redness REVIEW OF SYSTEMS Constitutional: Negative. HENT: Negative for trouble swallowing and voice change. Eyes: Negative. Respiratory: Negative. Cardiovascular: Negative. Gastrointestinal: Negative. Genitourinary: Negative. LMP 3 days ago Musculoskeletal: Negative. Skin: Positive for wound. Allergic/Immunologic: See EMR Neurological: Positive for seizures. Negative for facial asymmetry, light- headedness and headaches. Hematological: Negative. Psychiatric/Behavioral: Negative. OBJECTIVE Initial Vitals [03/05/18 2306] Temperature Pulse Rate Heart Rate Resp Rate Blood Pressure SpO2 37.2 ??C 96 -- 18 127/81 96 % Pain Score 8 PHYSICAL EXAMINATION Constitutional: She appears well-developed and well-nourished. No distress. HENT: Head: Normocephalic. Head is with laceration. There is normal jaw occlusion. Jaw: No tenderness or motion pain over the right jaw. No tenderness and motion pain over the left jaw. Nose: Nose normal. No nasal discharge. Mouth/Throat: Uvula is midline and oropharynx is clear and moist. Mucous membranes are moist. Dental: Good dentition. Eyes: Conjunctivae, EOM and lids are normal. Pupils are equal, round, and reactive to light. Periorbital area normal appearing. Neck: Trachea normal, normal range of motion and full passive range of motion without pain. Neck supple. No neck adenopathy. No tenderness is present. Cardiovascular: Normal rate, regular rhythm, normal pulses and normal peripheral perfusion. Pulmonary/Chest: Effort normal and breath sounds normal. Abdominal: Soft. Normal appearance and bowel sounds are normal. There is no tenderness. Musculoskeletal: Normal range of motion. She exhibits no edema, tenderness or deformity. Neurological: She is alert and oriented to person, place, and time. She has normal sensation and normal strength. Normal speech. She has a normal heel to toe test, unimpaired heel to steele and unimpaired finger to nose. Gait normal. GCS eye subscore is 4. GCS verbal subscore is 5. GCS motor subscore is6. Cranial nerve exam findings shows no optic nerve (II) function deficit, no oculomotor verve (III)function deficit, no trochlear nerve (IV) function deficit, no trigeminal nerve (V) motor branch function deficit, no trigeminal nerve (V) sensory branch function deficit, no abducens nerve () function deficit, no facial nerve (VII) motor branch function deficit, no acoustic nerve (VIII) function deficit, no glossopharyngeal and vagus (IX,X) nerve function function deficit and no hypoglossal nerve (XII) function deficit. RN noted possible right hand weakness; I do not appreciate this on exam. Skin: Laceration (see HENTsection for details.) noted. Nursing note and vitals reviewed. ASSESSMENT/PLAN Impression and Plan Injuries appear consistent with the NATHALIE/HPI. [facility] guidelines do not indicate need for CT scan. Wounds closed; See procedure note for details.. Reviewed and summarized previous medical records including: Documentation from previous visits. 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 03/06/18117 documented in this encounter Plan of Treatment Not on filedocumented as of this encounter Procedures Procedure Name Priority Date/Time Associated Diagnosis Comme nts LACERATION REPAIR Routine 03/06/2018 12:44 AM Res ults for this CDT procedure are i n the results section. LACERATION REPAIR Routine 03/06/2018 12:44 AM Res ults for this CDT procedure are i n the results section. LACERATION REPAIR Routine 03/06/2018 12:44 AM Res ults for this CDT procedure are i n the results section. documented in this encounter Results SUTURE REMOVAL (03/12/2018 9:45 AM CDT) Narrative MMOD[facility] - 03/12/2018 9:45 AM CDT Rashida Tinoco L.P.N. ? 03/12/2018 10:48 AM Suture Removal Date/Time: 03/12/2018 10:46 AM Performed by: RASHIDA TINOCO Authorized by: GUILLERMO MONSON Pre-procedure details: ??Sutures were placed at [facility] facility: yes ?Indicaton: scheduled suture removal ?Location: ??Head/neck ??Head/neck location: Ep[place] (right) an d lip. Procedure details: ??Wound appearance: ??No signs of infec tion ??Sutures removed: 7 on sabianism and 3 on lip. Post-procedure details: ??Procedure completed successfully: yes ?Complications: no immediate complicat ions ?Post-removal: ??No dressing applied Guillermo Monson P.A.-C. PROCEDURE/MINOR SURGICAL ORD ERABLES Performing Organization Address City/State/ZIP Code Phon e Number MMODAL MM[facility]AL NA Laceration Repair (03/06/2018 12:44 AM CDT) Narrative Guillermo Monson P.A.-C. - 03/06/2018 12: 44 AM CDT Guillermo Monson P.A.-C. ? 03/06/2018 ??1:17 AM Laceration Repair Date/Time: 03/06/2018 12:50 AM Performed by: GUILLERMO MONSON Authorized by: GUILLERMO MONSON Consent: ??Consent obtained: ??Verbal ??The benefits, risks and alternatives to the possible need for blood products were discussed with the patient and/or decision maker.: ??Not addressed Rolla protocol: ??All relevant documentation and testin g were reviewed and available. All required blood products, implants, devic es and/or special equipment were made available as applicable. The pre-pr ocedure verification was conducted, the correct site was marked i f required, and the procedural time out was conducted prior to performi ng the procedure and confirmed in a procedural pause.: yes ?? Pre-procedure details: ??Indication: laceration ?Location: ??Lip ??Lip location: ??Upper exterior lip ??Length (cm): ??1 ??Amount of cleaning: ??Standard ??Irrigation solution: ??Sterile saline ??Irrigation method: ??Pressure wash ??Foreign body imaging: ??None ??Appropriate hand hygiene, gown, cap, mask, protective eyewear, sterile gloves, skin preparation, sterile drape, and strict aseptic technique were utilized as applicable for the procedure .: Yes ?? Sedation/Anesthesia (see MAR for exact d osages): ??Anesthesia method: ??Local infiltrati on and topical application ??Topical anesthetic: ??LET ??Local anesthetic: ??Lidocaine 2% WITH epi (Initial lidocaine injection didn't provide adequate anesthesia; LET gel administered.) Procedure details: ??Repair type: ??Simple ??Limited defect created (wound extende d): no ?Hemostasis achieved with: ??Epinephri ne and LET ??Contaminated: no ?Wound exploration: entire depth of wo und probed and visualized ?Repair method: ??Sutures ??Suture size: ??6-0 ??Suture material: ??Nylon ??Suture technique: ??Simple interrupte d ??Number of sutures: ??3 ??Approximation: ??Close Post-procedure details: ??Procedure completed successfully: yes ?Tetanus status up to date: ??Up to da te ??Dressing Applied: no ?Complications: no immediate complicat ions ?? Comments: ?? Since the laceration crossed the [facility] border; I offered to leave this open and have the pt see plastic thomas rgery for closure to assure the best cosmesis. She refused that route an d asks to have the laceration closed now and accepts the chance of irr egularity at the [place] border. Guillermo Monson P.A.-C. PROCEDURE/MINOR SURGICAL ORD ERABLES Laceration Repair (03/06/2018 12:44 AM CDT) Narrative Guillermo Monson P.A.-C. - 03/06/2018 12: 44 AM CDT Guillermo Monson P.A.-C. ? 03/06/2018 ??1:17 AM Laceration Repair Date/Time: 03/06/2018 12:49 AM Performed by: GUILLERMO MONSON Authorized by: GUILLERMO MONSON Consent: ??Consent obtained: ??Verbal ??Consent given by: ??Patient ??The benefits, risks and alternatives to the possible need for blood products were discussed with the patient and/or decision maker.: ??Not addressed Rolla protocol: ??All relevant documentation and testin g were reviewed and available. All required blood products, implants, devic es and/or special equipment were made available as applicable. The pre-pr ocedure verification was conducted, the correct site was marked i f required, and the procedural time out was conducted prior to performi ng the procedure and confirmed in a procedural pause.: yes ?? Pre-procedure details: ??Indication: laceration ?Location: ??Face ??Face location: ??Chin ??Length (cm): ??0.5 ??Area cleansed with: ??Saline ??Amount of cleaning: ??Standard ??Irrigation solution: ??Sterile saline ??Irrigation method: ??Pressure wash ??Appropriate hand hygiene, gown, cap, mask, protective eyewear, sterile gloves, skin preparation, sterile drape, and strict aseptic technique were utilized as applicable for the procedure .: Yes ?? Sedation/Anesthesia (see MAR for exact d osages): ??Anesthesia method: ??Local infiltrati on ??Local anesthetic: ??Lidocaine 2% WITH epi Procedure details: ??Repair type: ??Simple ??Limited defect created (wound extende d): no ?Hemostasis achieved with: ??Epinephri ne ??Contaminated: no ?Wound exploration: entire depth of wo und probed and visualized ?Wound extent: no foreign bodies/mater ial noted ?Repair method: ??Sutures ??Suture size: ??5-0 ??Suture material: ??Nylon ??Suture technique: ??Simple interrupte d ??Number of sutures: ??1 ??Approximation: ??Close Post-procedure details: ??Procedure completed successfully: yes ?Tetanus status up to date: ??Up to da te ??Dressing Applied: yes ?Dressing applied: ??Adhesive bandage ??Complications: no immediate complicat ions ?? Guillermo Monson P.A.-C. PROCEDURE/MINOR SURGICAL ORD ERABLES Laceration Repair (03/06/2018 12:44 AM CDT) Narrative Guillermo Monson P.A.-C. - 03/06/2018 12: 44 AM CDT Guillermo Monson P.A.-C. ? 03/06/2018 ??1:17 AM Laceration Repair Date/Time: 03/06/2018 12:44 AM Performed by: GUILLERMO MONSON Authorized by: GUILLERMO MONOSN Consent: ??Consent obtained: ??Verbal ??Consent given by: ??Patient ??The benefits, risks and alternatives to the possible need for blood products were discussed with the patient and/or decision maker.: ??Not addressed Rolla protocol: ??All relevant documentation and testin g were reviewed and available. All required blood products, implants, devic es and/or special equipment were made available as applicable. The pre-pr ocedure verification was conducted, the correct site was marked i f required, and the procedural time out was conducted prior to performi ng the procedure and confirmed in a procedural pause.: yes ?? Pre-procedure details: ??Indication: laceration ?Location: ??Scalp ??Scalp location: ??Right temporal ??Length (cm): ??3 ??Area cleansed with: ??Saline ??Amount of cleaning: ??Standard ??Irrigation solution: ??Sterile saline ??Irrigation method: ??Pressure wash ??Foreign body imaging: ??None ??Appropriate hand hygiene, gown, cap, mask, protective eyewear, sterile gloves, skin preparation, sterile drape, and strict aseptic technique were utilized as applicable for the procedure .: Yes ?? Sedation/Anesthesia (see MAR for exact d osages): ??Anesthesia method: ??Local infiltrati on ??Local anesthetic: ??Lidocaine 2% WITH epi Procedure details: ??Repair type: ??Simple ??Limited defect created (wound extende d): no ?Hemostasis achieved with: ??Epinephri ne ??Contaminated: no ?Wound exploration: entire depth of wo und probed and visualized ?Wound extent: no fascia violation not ed and no foreign bodies/material noted ?Repair method: ??Sutures ??Suture size: ??5-0 ??Suture material: ??Nylon ??Suture technique: ??Simple interrupte d ??Number of sutures: ??7 ??Approximation: ??Close Post-procedure details: ??Procedure completed successfully: yes ?Tetanus status up to date: ??Up to da te ??Dressing Applied: yes ?Dressing applied: ??Adhesive bandage ??Complications: no immediate complicat ions ?? Guillermo Monson P.A.-C. 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) Laceration Face Initial Fracture Rib Single Closed Initial Right documented in this encounter Administered Medications Inactive Administered Medications - up to 3 most recent administrations Medication Order MAR Action Action Date Dose Rate Site bacitracin zinc 500 Given 03/06/2018 12:59 AM CDT 1 application unit/gram ointment 1 application 1 application, topical, Once, On Mon03/05/18 at 2325, For 1 dose lidocaine-EPINEPHrine 2 %-1:100,000 injection Given 11:25 PM CDT 20 mL 20 mL (XYLOCAINE W/EPI) 20 mL, infiltration, Once, On Mon03/05/18 at 2325, For 1 dose gdwfbpewg-uizhaffqf-cgldudrhxd (L.E.T.GE L) 4-0.05-0.5 % gel - ADS Override Pull Starting on Mon03/06/18 at 0045, For 1 dose, Created b y cabinet override hicungurw-eackksoii-dgkrzsmuhz 4-0.05-0.5 % Given 03/06/2018 12: 48 AM CDT 1 mL gel 1 mL (L.E.T.GEL) 1 mL, topical, As needed, mild pain or score 1-3 of 10, Starting on Mon03/06/18 at 0044 documented in this encounter Active and Recently Administered Medications Times are shown in CDT. Scheduled Medication Order 03/04/2018 03/05/2018 03/06/2018 bacitracin zinc 500 unit/gram ointment 1 application (COMPLETED) 005 (Given - Provider: Suad Plummer R.N.) 1 application, topical, Once, On Mon03/05/18 at 2325, For 1 dose lidocaine-EPINEPHrine 2 %-1:100,000 inje ction 20 mL (XYLOCAINE W/EPI) (COMPLETED) 2325 (Given - Provider: Suad Plummer RFlexNFlex) 20 mL, infiltration, Once, On Mon03/05/18 at 2325, For 1 dose PRN Medication Order 03/04/2018 03/05/2018 03/06/2018 matyxsxqc-jwcnhikja-uaxpiqmnls 4-0.05-0.5 % gel 1 mL (L.E.T.GEL) 0048 (Given - Provider: Nataliia EsparzaN.) 1 mL, topical, As needed, mild pain or s core 1-3 of 10, Starting on Mon03/06/18 at 0044 documented in this encounter Care Teams Javascript Application Developer Relationship Specialty Start Date End Date Patricio Palmer M.D. PCP - General Family Medicine 6/4/[address] [place] [phone] documented as of this encounter
--- OUTSIDE RECORDS SUMMARY | 2022-02-22 12:37 | XMS_ITS | Encounter Summary ---
:1985 [facility] Address [address] [place] [address] Care Team Providers Name Role Phone Patricio Palmer M.D. Primary Care Provider Encounter Details Date Type Department Care Team Description 04/13/2018 Orders Only Department of Neurology in Michelle Monson R. [place], [place] EEG T. 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 PCP - General Family Medicine 12/18/[address] [place] [phone] documented as of this encounter
--- OUTSIDE RECORDS SUMMARY | 2022-02-22 12:37 | XMS_ITS | Encounter Summary ---
:1985 Author Organization [facility] Address [address] [place] [address] Care Team Providers Name Role Phone Patricio Palmer M.D. Primary Care Provider Reason for Visit Reason Comments Wound Infection stiches on monday d/t fall f rom seizure in shower. green puss oozing from chin wound that started yesterday. Encounter Details Date Type Department Care Team Description 03/08/2018 Emergency [facility] Maria L Jeffries, Infectio n Wound Department P.A.-C. 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 - 03/08/2018 6:15 PM CDT Get plenty of fluids and rest. Take medication as prescribed. F/u with pcp as needed, return to ED if symptoms worsen such as increased pain, redness, swelling or fevers develop. AttachmentsThe following attachments cannot be sent through Care Everywhere. You've Been Prescribed an Antibiotic in the Hospital for an Infection - [facility] (10/2017) ([place]i)documented in this encounter Medications at Time of [...] by mouth 2 (two) times a day. sulfamethoxazole-trimetho Take 1 tablet by 20 tablet 0 02/1503/18/2018 prim (BACTRIM DS) 800-160 mouth every 12 mg per tablet (twelve) hours for 10 days. documented as of this encounter ED Notes Maria L Jeffries P.A.-C. - 03/08/2018 6:24 PM CDT I have personally seen and examined this patient. I have fully participated in the care of this patient. I have reviewed all clinical information including history, physical exam, orders, and plan. I agree with the note of the [facility] NURSE/PA. Final Diagnoses: as of Mar 08 1957 Infection Wound Postoperative Initial Pt was seen and examined independently from Avila Victoria PA-C. I agree with his assessment and planof care. Infected suture was removed, purulent drainage expressed from wound. Pt will be started on Bactrim. Continue to monitor closely and return if symptoms worsen. Also recommended scheduling dental appointment soon for poor dentition and dental caries. Maria L Jeffries P.A.-C. 03/08/182119 Cedric Victoria P.A.-C. - 03/08/2018 5:41 PM CDT SUBJECTIVE CHIEF COMPLAINT/REASON FOR VISIT Wound Infection (stiches on monday d/t fall from seizure in shower. green puss oozing from chin wound that started yesterday. ) HISTORY OF PRESENT ILLNESS Luisa is a very pleasant 33-year-old female, alert oriented x4, presents to the ED today with chief complaint of infection. Patient states that 2 days or prior she was seen in the emergency room and required stitches to her face. Patient is concerned that she has an infection around the 1 stitch on her chin. Patient states she has had a slight amount of drainage from the area as well as an increased pain and swelling. The patient denies any difficulty swallowing or handling her secretions. Patient denies any fevers, chills, chest pain or shortness of breath. Patient does report that she still smokes. REVIEW OF SYSTEMS Constitutional: Negative for chills and fever. HENT: Negative for dental problem and trouble swallowing. Eyes: Negative for daphne-orbital edema. Respiratory: Negative for shortness of breath and wheezing. Cardiovascular: Negative for chest pain. Gastrointestinal: Negative for nausea and vomiting. Endocrine: Negative. Genitourinary: Negative. Musculoskeletal: Negative. Skin: Positive for wound. Allergic/Immunologic: Negative. Neurological: Negative. Hematological: Negative. Psychiatric/Behavioral: Negative. OBJECTIVE Initial Vitals [03/08/18 1715] Temperature Pulse Rate Heart Rate Resp Rate Blood Pressure SpO2 36.6 ??C 81 -- 20 112/74 99 % Pain Score 0 - No pain PHYSICAL EXAMINATION Constitutional: She appears well-developed and well-nourished. She appears not lethargic. No distress. HENT: Head: Normocephalic and atraumatic. No signs of injury. Mouth/Throat: Mucous membranes are moist. Eyes: EOM are normal. Pupils are equal, round, and reactive to light. Neck: Normal range of motion. Cardiovascular: Regular rhythm and normal heart sounds. No murmur heard. Pulmonary/Chest: Effort normal and breath sounds normal. No tachypnea. No respiratory distress. Neurological: She is alert and oriented to person, place, and time. Skin: Skin is warm. She is not diaphoretic. Small abscess with drainage out of chin wound Psychiatric: She has a normal mood and affect. Her behavior is normal. Judgment and thought content normal. ASSESSMENT/PLAN 33-year-old female, the past medical history of seizures, chief complaint of infected wound. Physical exam reveals a female stated age in no acute distress. Heart, lung sounds normal. Patient was seen 2 days prior for multiple lacerations on her face due to a fall she suffered following seizure. Patient had 1 stitch placed on her chin. The area was a slightly swollen with purulent drainage. The stitch was removed the wound was opened loud drain. Patient was prescribed Bactrim. Patient had no signs of expanding infection. I am encouraged by the well appearance the patient as well as her stable vitalsigns reassuring physical exam. Patient is to follow up with her PCP or return to the ED if symptomsworsen. Patient understood agreed the plan patient was discharged. Cedric Victoria PA-C Final Diagnoses: as of Mar 08 1835 Infection Wound Postoperative Initial Cedric Victoria P.A.-C. 03/08/181947 documented in this encounter Plan of Treatment Not on filedocumented as of this encounter Visit Diagnoses Diagnosis Infection Wound Postoperative Initial - Primary documented in this encounter Care Teams Environmental Compliance Manager Relationship Specialty Start Date End Date Patricio Palmer M.D. PCP - General Family Medicine 12/18/[address] [place] [phone] documented as of this encounter
--- OUTSIDE RECORDS SUMMARY | 2022-02-22 12:37 | XMS_ITS | Encounter Summary ---
:1985 Author Organization [facility] Address [address] [place] [address] Care Team Providers Name Role Phone Patricio Palmer M.D. Primary Care Provider Reason for Referral Outpatient (Routine) - Closed Specialty Diagnoses / Procedures Referred By Contact Refer red To Contact Neurology Pietro Pickett M.D. [place] [address] [place] [address] Referral ID Status Reason Start Date Expiration Date Visits Requ ested Visits Authorized [id number] Closed 02/07/2018 02/07/2019 1 1 Encounter Details Date Type Department Care Team Description 02/07/2018 Orders Only Department of Pietro Pickett Focal Epil epsy Neurology gavino Zuluaga M.D. Symptomatic [place], [place] [address] [facility] Intractable Without [address] [place], [place] [address] ([facility]) (Primary Dx) [id number] Social History Tobacco Use Types Packs/Day Years [...] 06/09/2021 organizations such as hoahaoism groups, unions, [employer]OX [employer] or athletic groups, or school groups? How [...] or slept in a intermediate (including now)? 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 documented as of this encounter Plan of Treatment Scheduled Referrals Name Type Priority Associated Diagnoses Order S [facility] Neurology office Outpatient Referral Routine Expe cted: visit (clinic) 02/07/2018 (Approximate), Expires: 02/07/2021 documented as of this encounter Results (ABNORMAL) Lamotrigine Level (03/08/2018 10:33 AM CDT) P athologist Signature Lamotrigine, S 2.0 (L) 2.5 - 15.0 03/09/2018 [facility] mcg/mL 11:18 AM CDT [facility] Comment: ----ADDITIONAL INFORMATION---- This test was developed and its performa nce characteristics determined by [facility] in a manner consistent with CLIA requirements. [...] Organization Address City/State/ZIP Code Phon e Number [facility] [address] [place] [address] [address] [place] Lacosamide (Vimpat), Level (03/08/2018 10:33 AM CDT) P athologist Signature Lacosamide, S 4.8 1.0 - 10.0 03/09/2018 [facility] mcg/mL 10:54 AM CDT [facility] Comment: ----ADDITIONAL INFORMATION---- This test was developed and its performa nce characteristics determined by [facility] in a manner consistent with CLIA requirements. [...] Organization Address City/State/ZIP Code Phon e Number [place] [id number] [place] [address] (ABNORMAL) CBC with Differential, Blood (03/08/2018 10:33 AM CDT) Patholo gist Method Time Signature Hemoglobin 14.7 11.6 - 03/08/2018 [facility] 15.0 g/dL 10:46 AM [place] [facility] Hematocrit 45.6 (H) 35.5 - 03/08/2018 [facility] 44.9 % 10:46 AM T [place] [facility] Erythrocytes 5.15 (H) 3.92 - 03/08/2018 [facility] 5.13 10:46 AM CDT [place] [facility] x10(12)/L [facility] MCV 88.5 78.2 - 03/08/2018 [facility] 97.9 fL 10:46 AM [employer] [place] [facility] RBC Distrib Width 13.5 12.2 - 03/08/2018 [facility] 16.1 % 10:46 AM CDT [place] [facility] Platelet Count 319 157 - 371 03/08/2018 [facility] x10(9)/L 10:46 AM T [place] [facility] Leukocytes 8.6 3.4 - 9.6 03/08/2018 [facility] x10(9)/L 10:46 AM CDT [facility] Neutrophils 4.76 1.56 - 03/08/2018 [facility] 6.45 10:46 AM CDT HEALTH x10(9)/L [facility] Lymphocytes 2.73 0.95 - 03/08/2018 [facility] 3.07 10:46 AM CDT HEALTH x10(9)/L [facility] Monocytes 0.94 (H) 0.26 - 03/08/2018 [facility] 0.81 10:46 AM CDT HEALTH x10(9)/L [facility] Eosinophils 0.12 0.03 - 03/08/2018 [facility] 0.48 10:46 AM CDT HEALTH x10(9)/L [facility] Basophils 0.06 0.01 - 03/08/2018 [facility] 0.08 10:46 AM CDT HEALTH x10(9)/L [facility] Specimen Anatomical Collection Method Collection Time Receive d Time (Source) Location / / Volume Laterality Blood (Blood, 03/08/2018 10:33 03/08/2018 Venous) AM CDT 10:34 AM CDT Pietro Pickett M.D. LAB BLOOD ADD-ON Performing Organization Address City/[facility]/ZIP Code Phon e Number [address] [phone] [facility] AST (Aspartate Aminotransferase) (03/08/2018 10:33 AM CDT) [facility] [employer] Method Time Signature Aspartate 21 8 - 43 03/08/2018 [facility] Aminotransferase U/L 11:37 AM CDT HEALTH (AST), S [facility] Specimen Anatomical Collection Method Collection Time Receive d Time (Source) Location / / Volume Laterality Blood (Blood, 03/08/2018 10:33 03/08/2018 Venous) AM CDT 10:34 AM CDT Pietro Pickett M.D. LAB BLOOD ADD-ON Performing Organization Address City/[facility] Phon e Number [address] [phone] [facility] ALT (Alanine Aminotransferase) (03/08/2018 10:33 AM CDT) Patholo gist Method Time Signature Alanine 25 7 - 45 03/08/2018 [facility] Aminotransferase U/L 11:37 AM CDT HEALTH (ALT), S [facility] Specimen Anatomical Collection Method Collection Time Receive d Time (Source) Location / / Volume Laterality Blood (Blood, 03/08/2018 10:33 03/08/2018 Venous) AM CDT 10:34 AM CDT Pietro Pickett M.D. 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 PCP - General Family Medicine 12/18/[address] [place] [address] [place] [phone] documented as of this encounter
--- OUTSIDE RECORDS SUMMARY | 2022-02-22 12:37 | XMS_ITS | Encounter Summary ---
:1985 Author Organization [facility] Address [address] [place] [address] Care Team Providers Name Role Phone Unavailable Primary Care Provider Unavailable Reason for Visit Reason Onset Date Comments alternative medication 09/06/2017 Encounter Details Date Type Department Care Team Description 09/06/2017 Clinical Communication Urgent Care in [place], [place] Sarita Helm APRN, medication [address] [facility] [place], [place] [address] 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 - 09/06/2017 3:01 PM CST Spoke with provider and new med of azar was given 15mg po daily #10 it is convered with her ins. Spoke with pt and instructed her to f/u with PCP if needed ROCK MINER BLASTING Telephone Encounter - Елена Ospina R.N. - 09/06/2017 1:25 PM CST Seen in urgent care. ROCK MINER BLASTING Telephone Encounter - Sheridan Burch - 09/06/2017 12:43 PM CST Patient was given tramadol and it is not covered by her insurance. Please send an alternative scriptto Rica White in [place]. ROCK MINER BLASTING documented in this encounter Plan of Treatment Not on filedocumented as of this encounter Visit Diagnoses Not on filedocumented in this encounter"
--- OUTSIDE RECORDS SUMMARY | 2022-02-22 12:37 | XMS_ITS | Encounter Summary ---
:1985 Author Organization [facility] Address [address] [place] [address] Care Team Providers Name Role Phone Patricio Palmer M.D. Primary Care Provider Reason for Referral MRI/CAT/PET Scan (Routine) - Closed Specialty Diagnoses / Procedures Referred By Contact Refer red To Contact Radiology Diagnoses Epilepsy Seizure Not Intractable Without Status Epilepticus (HCC) Pietro Pickett M.D. [place] [facility] Procedures MR Brain without IV Contrast [place] MRI BRAIN WO [facility] MRI BRAIN WO [facility]ST [address] [place] [phone] Referral ID Status Reason Start Date Expiration Date Visits Requ ested Visits Authorized [id number] Closed 03/09/2018 03/09/2019 1 1 Reason for Visit MRI/CAT/PET Scan (Routine) - Closed Specialty Diagnoses / Procedures Referred By Contact Refer red To Contact Radiology Diagnoses Epilepsy Seizure Not Intractable Without Status Epilepticus (HCC) Pietro Pickett M.D. [place] [facility] Procedures MR Brain without IV Contrast [place] MRI BRAIN [facility] MRI BRAIN WO [facility]TRST [address] [place] [phone] Referral ID Status Reason Start Date Expiration Date Visits Requ ested Visits Authorized [id number] Closed 03/09/2018 03/09/2019 1 1 Encounter Details Date Type Department Care Team Description 03/15/2018 Hospital Encounter Department of Pietro Pickett epsy Seizure Not Radiology gavino Zuluaga M.D. 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 encounter Last Filed Vital Signs Vital Sign Reading Time Taken Comments Blood Pressure - - Pulse 72 03/15/2018 3:08 PM CDT Temperature 36.8 ??C (98.3 ??F) 03/15/2018 1:06 PM CDT Respiratory Rate 16 03/15/2018 3:08 PM CDT Oxygen Saturation 99% 03/15/2018 3:08 PM CDT Inhaled Oxygen Concentration - - Weight 56.1 kg (123 lb 10.9 oz) 03/15/2018 1:06 PM CDT Height 157.5 cm (5' 2) 03/15/2018 1:06 PM CDT Body Mass Index 22.62 03/15/2018 1:06 PM CDT documented in this encounter Medications at Time of Discharge Medication Sig Dispensed Refills Start Date End Date ACETAMINOPHEN ORAL Take 500 mg by mouth 0 016 as needed. Takes 4 tablet (2,000mg total) by mouth as needed for headaches sulfamethoxazole-trimeth Take 1 tablet by 20 tablet 0 03/0803/18/2018 oprim (BACTRIM DS) mouth every 12 800-160 mg per tablet (twelve) hours for 10 days. lacosamide (VIMPAT) 100 Take 1 tablet (100 60 tablet 1 01/1504/16/2018 mg tablet mg total) by mouth 2 (two) times a day. lamoTRIgine (LaMICtal) Take 2 tablets (200 120 tablet 5 02/1508/10/2018 100 mg tablet mg total) by mouth 2 (two) times a day. 1 three times daily for 1 week then 2 twice daily thereafter documented as of this encounter Nursing Notes Charito Leyva R.N. - 03/15/2018 3:17 PM CDT Tolerated scan after ativan. Discharged with Malachi significant other. Claudette Hayes R.N. - 03/15/2018 1:14 PM CDT Does patient have dental retainer, brace, wire, denture, etc? No Does patient have tooth fillings? Yes Does patient have colored contact lens? No Does patient have metallic threads on clothes (e.g. silver impregnated for anti- microbial purpose)? No Does patient have tattoos or permanent eyeliner? Yes, tattoos. Does patient have piercings or other metallic jewelry? No Does patient have seizures or motion disorders? Yes, seizures. Is patients current temperature greater than 38.0 C? No If yes to any questions, notify lead technologist. Reminder: document current weight in EMR Claudette Hayes R.N. - 03/15/2018 12:58 PM CDT Is the patient 18 and older: Yes if yes... continue Able to take oral meds? Yes If yes... continue Does the patient have a responsible adult accompanying them? Yes - if no, and all screening criteria reviewed, set up sedation dismissal Process. Malachi Rodriguez, in [facility] [phone] Does patient have an allergy to lorazepam or other benzodiazepines? No If no... continue Does patient have active respiratory issues? No If no...continue If yes notify radiologist for direction prior to continuing. Has the patient taken any other benzodiazepines, antidepressants, or sedating medications today? No If no...continue If yes notify radiologist for direction prior to continuing. Does patient have a hx of narrow angle glaucoma or gaging or choking? No If no... Continue If yes notify radiologist for direction prior to continuing. Is patient scheduled for a MR proctogram or neuro functional MR? No if no... continue Is the patient scheduled for a MR guided breast biopsy? No - if yes, obtain consent prior to administration. Is patient or ? No If no... continue Does patient have other appointments today that may require attention to detail or informed consent?No If no... continue If yes, call other area to determine if administration is ???ok?? . documented in this encounter Plan of Treatment Not on filedocumented as of this encounter Procedures Procedure Name Priority Date/Time Associated Comments Diagnosis MR BRAIN WITHOUT RAD - Routine 03/15/2018 2:44 Epilepsy Seizure Res ults for this IV CONTRAST (most inpatients PM CDT Not Intractable procedur e are in and all Without Status the results outpatients) Epilepticus (HCC) section. documented in this encounter Results MR Brain without IV Contrast (03/15/2018 2:44 PM CDT) Anatomical Region Laterality Modality Head, Brain, Neuroradiology RST LOS N/A Magn etic Resonance Specimen (Source) Anatomical Collection Method Collection [...] superior left temporal lobe. Pietro Pickett M.D. [facility] MRI PROCEDURES documented in this encounter Visit Diagnoses Diagnosis Epilepsy Seizure Not Intractable Without Status Epilepticus (HCC) documented in this encounter Administered Medications Inactive Administered Medications - up to 3 most recent administrations Medication Order MAR Action Action Date Dose Rate Site LORazepam tablet 0.5 mg (ATIVAN) Given 03/15/2018 1:22 PM CDT 1 mg 0.5 mg, sublingual, As needed, anxiety, Starting on Glory 03/15/18 at 1306, For 4 doses, Imaging Protocol Orders, 1 mg by mouth once as needed for anxiety related to radiology study. May administer 0.5 mg dose if patient prefers. May repeat every 15 minutes if anxiety persists (2 mg maximum dose). documented in this encounter Care Teams Machine Cleaner Relationship Specialty Start Date End Date Patricio Palmer M.D. PCP - General Family Medicine 12/18/[address] [place] [phone] documented as of this encounter
--- OUTSIDE RECORDS SUMMARY | 2022-02-22 12:37 | XMS_ITS | Encounter Summary ---
:1985 Author Organization [facility] Address [address] [place] [address] Care Team Providers Name Role Phone Unavailable Primary Care Provider Unavailable Encounter Details Date Type Department Care Team Description 02/14/[address] [facility] Charlie Hopkins M.D. [address] [place] [address] (Wo rk) Social History Tobacco Use Types [...] 1 to 4 times per year 05/18 confucianist services? 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 documented as of this encounter Miscellaneous Notes Miscellaneous - Conversion, Historical Provider Ser - 02/14/2017 11:59 PM CDT Coding Summary-Paper Based CODING DATE: 02/21/2017 FINAL [facility] STATUS: * Discharged to Home or Self Care PAYOR: Medicaid ADMIT DX: REASON FOR VISIT DX: FINAL DX: PRINCIPAL: N91.2 Amenorrhea, unspecified SECONDARY: PROCEDURES DOCTOR NAME DATE NOTE: The code number assigned matches the documented diagnosis and / or procedure in the patient's chart. However, the narrative phrase printed from the coding software may appear abbreviated, or result in slightly different terminology. Coded By: WAQAS NEWTON Date Saved: 02/21/2017 11:31 am Source: [facility] POWERCHART Document Id: [id number] documented in this encounter Plan of Treatment Not on filedocumented as of this encounter Visit Diagnoses Not on filedocumented in this encounter
--- OUTSIDE RECORDS SUMMARY | 2022-02-22 12:37 | XMS_ITS | Encounter Summary ---
:1985 Author Organization [facility] Address [address] [place] [id number] Care Team Providers Name Role Phone Patricio Palmer M.D. Primary Care Provider Reason for Referral Outpatient (Routine) - Closed Specialty Diagnoses / Procedures Referred By Contact Refer red To Contact Diagnoses Epilepsy Seizure Not Intractable Without Status Epilepticus (HCC) Pietro Pickett M.D. [facility] Procedures PET CT Brain Metabolic [place] PET BRAIN METABOLIC EVAL [facility] PET BRAIN METABOLIC EVAL [place] PET BRAIN METABOLIC EVAL [address] [place] [phone] Referral ID Status Reason Start Date Expiration Date Visits Requ ested Visits Authorized [id number] Closed 03/09/2018 03/09/2019 6 6 Reason for Visit Outpatient (Routine) - Closed Specialty Diagnoses / Procedures Referred By Contact Refer red To Contact Diagnoses Epilepsy Seizure Not Intractable Without Status Epilepticus (HCC) Pietro Pickett M.D. [facility] Procedures PET CT Brain Metabolic [place] PET BRAIN METABOLIC EVAL [facility] PET BRAIN METABOLIC EVAL [place] PET BRAIN METABOLIC EVAL [address] [place] [address] Referral ID Status Reason Start Date Expiration Date Visits Requ ested Visits Authorized [id number] Closed 03/09/2018 03/09/2019 6 6 Encounter Details Date Type Department Care Team Description 03/23/2018 Hospital Encounter Department of Pietro Pickett Seizure Not Radiology gavino Zuluaga M.D. 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 documented in this encounter Results PET CT Brain Metabolic [...] RADIOPHARMACEUTICAL/MEDS: Route: intravenous fludeoxyglucose F 18 injection PENITENTIARY (FDG F-18),11.98 millicurie TECHNIQUE: F-18 FDG PET/CT [...] RADIOPHARMACEUTICAL/MEDS: Route: intravenous fludeoxyglucose F 18 injection PENITENTIARY (FDG F-18),11.98 millicurie TECHNIQUE: F-18 FDG PET/CT [...] PET/CT. Pietro Pickett M.D. IM[facility] [place] PROCEDURES documented in this encounter Visit Diagnoses Diagnosis Epilepsy Seizure Not Intractable Without Status Epilepticus (HCC) documented in this encounter Administered Medications Inactive Administered Medications - up to 3 most recent administrations Medication Order MAR Action Action Date Dose Rate Site fludeoxyglucose F 18 Given 03/23/2018 10:36 11.98 millicuries injection PENITENTIARY (FDG F-18) AM CDT 11.98 millicurie, intravenous, Once, On Mon03/23/18 at 1100, For 1 dose documented in this encounter Care Teams Record Searcher Relationship Specialty Start Date End Date Patricio Palmer M.D. PCP - General Family Medicine 12/18/[address] [place] [phone] documented as of this encounter
--- OUTSIDE RECORDS SUMMARY | 2022-02-22 12:38 | XMS_ITS | Encounter Summary ---
:1985 Author Organization [facility] Address [address] [place] [address] Care Team Providers Name Role Phone Unavailable Primary Care Provider Unavailable Encounter Details Date Type Department Care Team Description 01/09/2015 Hospital Encounter HX NO MAPPING Amari Santos M.D. 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
--- OUTSIDE RECORDS SUMMARY | 2022-02-22 12:38 | XMS_ITS | Encounter Summary ---
:1985 Author Organization [facility] Address [address] [place] [address] Care Team Providers Name Role Phone Unavailable Primary Care Provider Unavailable Encounter Details Date Type Department Care Team Description 09/22/2016 Hospital Encounter HX NO MAPPING Lorne Gonsalves M.D. 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
--- OUTSIDE RECORDS SUMMARY | 2022-02-22 12:38 | XMS_ITS | Encounter Summary ---
:[address] [facility] Address [address] [place] [address] Care Team Providers Name Role Phone Unavailable Primary Care Provider Unavailable Encounter Details Date Type Department Care Team Description 01/01/2015 Hospital Encounter HX NO MAPPING Arik Griffin III, M.D. (Skip), M[facility]P.H[facility] [address] [place], [place] [address] (Wo rk) Social History Tobacco Use Types [...] at Date Recorded Female 06/09/2021 2:09 PM NNP documented as of this encounter Last Filed Vital Signs Vital Sign Reading Time Taken Comments Blood Pressure - - Pulse - - Temperature - - Respiratory Rate - - Oxygen Saturation - - Inhaled Oxygen Concentration - - Weight - - Height 162 cm (5' 3.78) 01/01/2015 10:08 AM CDT Body Mass Index - - documented in this encounter Plan of Treatment Not on filedocumented as of this encounter Visit Diagnoses Not on filedocumented in this encounter
--- OUTSIDE RECORDS SUMMARY | 2022-02-22 12:38 | XMS_ITS | Encounter Summary ---
:1985 Author Organization [facility] Address [address] [place] [address] Care Team Providers Name Role Phone Unavailable Primary Care Provider Unavailable Encounter Details Date Type Department Care Team Description 11/06/2015 Hospital Encounter HX [facility] Jenifer Bello M.D. 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 - 11/06/2015 1:33 PM CDT REASON FOR VISIT Pelvic pain. HISTORY OF PRESENT ILLNESS About 2 days ago, Holly felt some right lower pelvic pain, sharp/stabbing in nature, occuring when standing. At its worst, 9/10 intensity, now 3/10. No similar previous to this episode. Associated abnormal vaginal bleeding. LMP began 10.26.2015, about 5 days later than expected, and has continued since then, with some bright red blood in the menstrual flow. Home test was negative yesterday,but she feels breast tenderness. SYSTEMS REVIEW No diarrhea. Denies urinary urgency or pain. 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 Vaginal deliveries 2012 and 2014; SAb without meds or procedure; right ectopic treatedwith medication. Contraception by condom. MEDICAL Seizure (SZ) NOS in previous . Nephrolithiasis NOS SURGICAL Negative. MEDICATIONS Reviewed in EMR. ALLERGIES Vicodin PHYSICAL EXAMINATION VITALS: Systolic Blood Pressure: 112 Diastolic Blood Pressure: 60 Height: 163 Actual Weight: 60.2 Body Mass Index: 22.66 GENERAL: Well developed, well- nourished female in no acute distress. PSYCH: Pleasant affect. Normal fund of language, appropriate cognition and attention span. NEUROLOGIC: CN II-XII grossly intact, no focal lesion. Normal gait. HEENT: Neck supple, no lesion. RESPIRATORY: Normal inspiratory effort. No cough. ABDOMINAL: Round abdomen, soft, normal bowel sounds throughout. Mild right lower quadrant tenderness, no rebound. LABORATORY: hCG today 1704 IMPRESSION 1. 30-year-old 5, para 2-0-2-2 with very early in unknown location, suspect ectopic. 2. History ectopic treated with methotrexate in 2013. PLAN 1. Greater than 50% of the -40 minutes spent with patient were in counseling and coordination of care. 2. Pelvic ultrasound this afternoon to evaluate location, size, cardiac activity, as well as pelvic fluid. If ectopic, obtain blood type and screen, BUN, Cr, and liver function tests; will discuss the risks/benefits/alternatives to MTX treatment of ectopic . ADDENDUM No intrauterine ; likely gestational sac medial to R ovary. No free pelvic fluid. Discussed the risks/benefits/alternatives to MTX treatment of ectopic , especially surgicaltreatment; written materials from [facility] provided as well. All patient questions answered; she chooses methotrexate management of her ectopic . She will go to lab this afternoon for CBC, BUN, Cr, liver panel, and type & screen; if these areall normal, she will get injection of methotrexate 50mg/M2 tonight. She agrees to return to lab on MondayNovember 09 and MondayNovember 12 for repeat quantitative hCG tests, as well as possible repeat dose of MTX on Monday the . Electronically Signed By: FORTUNATO CARTER MD On: 11/06/2015 04:39 PM Modified by and Electronically Signed by: FORTUNATO CARTER MD On: 11/06/2015 04:39 PM Source: [facility] POWERCHART Document Id: [id number] documented in this encounter Miscellaneous Notes Miscellaneous - Fortunato Glover M.D. - 11/06/2015 1:56 PM CDT Ambulatory Discharge Medication List [address] [id number] Visit Information Name: PREET TURK [facility] Number: [id number] Visit Date: 11/06/2015 13:56:09 Attending Provider: FORTUNATO CARTER MD Primary Care Provider: ANUPAM BOONE MD PREET TURK has been given the following list of medications: Your Medications It is important to take your medications as directed. Use a pill box or chart to help remind you to take your medications. Please let your doctor or nurse know if you have problems taking your medications. Medication/Strength How to Take Indications/Special Instructions/Comments/Notes for Patient Medication Changes/Routing Stop Taking the Following Medications: permethrin topical (permethrin 5% topical cream) permethrin topical (Elimite 5% topical cream) Medication list as of 11-06-15 13:56 Attention: If you have any medications at home that are not on this list, DO NOT take them until youcontact your provider for clarification. Give a copy of your medication list to your primary care provider. Update your medication list any time medications or doses are changed and carry your medication list at all times in case of emergency. Electronically Signed By: FORTUNATO CARTER MD Signed On:06-NOV-2015 13:54:54 Additional Information: Source: [facility] POWERCHART Document Id: [id number] Miscellaneous - Fortunato Glover M.D. - 11/06/2015 1:56 PM CDT Ambulatory Patient Summary [address] [id number] Visit Information Name: PREET TURK [facility] Number: [id number] Current Date: 11/06/2015 13:56:10 Physicians Attending Provider: FORTUNATO CARTER MD Primary Care Provider: ANUPAM BOONE MD PREET TURK has been given the following list of [...] Take Indications/Special Instructions/Comments/Notes for Patient Medication Changes/Routing Stop Taking the Following Medications: permethrin topical (permethrin 5% topical cream) permethrin topical (Elimite 5% topical cream) Medication list as of 11-06-15 13:56 Attention: If you have any medications at home that are not on this list, DO NOT take them until youcontact your provider for clarification. Give a copy of your medication list to your primary care provider. Update your medication list any time medications or doses are changed and carry your medication list at all times in case of emergency. 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 Go to [email or web address] and click on Create Your Account. Then, follow the directions to complete the online form. Youll be asked for your [facility] number which you can find at the top of this document. Your Goals/Additional instructions: Source: [facility] POWERCHART Document Id: [id number] Miscellaneous - Fortunato Glover M.D. - 11/06/2015 12:07 PM CDT Results Notification Document Contains Addenda Addendum by RICHELLE SEAY LPN on November 06, 2015 12:24:[address] Glover notified patient and she will come in today at 3:00 for ultra sound. From: FORTUNATO CARTER MD To: OW CLOCK REPAIRER Nurse; Sent: 11/06/2015 12:07:51 CDT ! Show up: 11/06/2015 12:07:51 CDT Subject: Results Notification Actions: Notify patient of results Reminder Comments: patient needs stat ultrasound to evaluate for ectopic Results: Date Result Name Ind Value Ref Range 11/06/2015 11:22 Beta hCG Qnt (H) 1,704.0 IU/L ( - <=4.9) Source: [facility] POWERCHART Document Id: [id number] Electronically signed by Kemal [facility] [employer] Director [id number] at 12/10/2016 11:42 AM CDT Miscellaneous - Iris Brown, L.P.N. 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 Intake/History Entered On: 11/06/2015 10:37 CDT Performed On: 11/06/2015 10:35 CDT by IRIS BROWN LPN Intake Chief Complaint : pelvic pain x 2 days Systolic Blood Pressure : 112 mmHg Diastolic Blood Pressure : 60 mmHg NIBP Mean : 77 mmHg BP Location : Left upper extremity Blood Pressure Cuff Size : Large Height : 163 cm(Converted to: 5 ft 4 inch(es), 64 inch(es)) Actual Weight : 60.2 kg(Converted to: 132 lb 11 oz) Dosing Weight Clinic : 60.2 kg Clinic BSA : 1.65 Body Mass Index : 22.66 kg/m2 IRIS BROWN LPN - 11/06/2015 10:35 CDT General Info Languages : [place] Is Patient Female and 13-50 no hysterectomy : Yes Status : Patient denies Are you ? : No IRIS BROWN LPN - 11/06/2015 10:35 CDT Subjective Pain Symptoms : Yes IRIS BROWN LPN - 11/06/2015 10:35 CDT Pain Scale Pain Scale Verbal 0-10 : Open IRIS BROWN LPN - 11/06/2015 10:35 CDT Pain Pain Assessment Grid Pain 1 Location : Pelvic Laterality : Right KRISSY IRIS Monterroso [facility] - 11/06/2015 10:35 CDT Dependent Habits Exposure to Tobacco Smoke : Other: former Smoking Status : Former smoker Tobacco 2A : Yes Tobacco Use/Currently Using : No Tobacco Use/Last 30 Days : No Tobacco Use/Last 12 months : No IRIS BROWN [facility] - 11/06/2015 10:35 CDT Caffeine Use Grid Caffeine Use : Current Type : Coffee, Soft drinks Frequency : Daily Amount : 2 pots KRISSYIRIS DOMINGUEZ [facility] - 11/06/2015 10:35 CDT Recreational Drug Use Grid Drug Use : None IRIS BROWN [facility] - 11/06/2015 10:35 CDT Source: [facility] POWERCHART Document Id: [id number] documented in this encounter Plan of Treatment Not on filedocumented as of this encounter Procedures Procedure Name Priority Date/Time Associated Comments Diagnosis LIPID PANEL, S Routine 11/06/2015 4:36 PM Results for this CDT procedure are i n the results section. ABO GROUPING, B Routine 11/06/2015 4:36 PM Result s for this CDT procedure are i n the results section. CBC WITHOUT Routine 11/06/2015 4:36 PM Results f or this DIFFERENTIAL, B CDT procedure ar e in the results section. BUN (BLOOD UREA Routine 11/06/2015 4:36 PM Result s for this NITROGEN), S/P CDT procedure are in the results section. CREATININE WITH Routine 11/06/2015 4:36 PM Result s for this EGFR, S/P CDT procedure are i n the results section. BHCG (BETA-HUMAN Routine 11/06/2015 11:22 AM Resu lts for this CHORIONIC CDT procedure are i n GONADOTROPIN), GABRIEL, the res ults S section. documented in this encounter Results Grouping and [facility], see #[id number] (11/06/2015 4:36 PM CDT) [facility] Method Time Signature HX Grouping B Positive POWERCHART and Rh Comment: Test Performed by: [address] [address] Lab oratory Director: Dennis Marquez II, M.D., Ph.D. Specimen (Source) Anatomical Collection Method Collection Time Re ceived Time Location / / Volume Laterality 11/06/2015 4:36 PM CDT Fortunato Glover M.D. LAB BLOOD BANK TEST ORDERABL ES Performing Organization Address City/State/ZIP Code Phon e Number POWERCHART CBC without Differential (11/06/2015 4:36 PM CDT) P athologist Signature Leukocytes 8.5 3.4 - 10.5 POWERCHART X109L Erythrocytes 4.81 3.90 - 5.03 POWERCHART [id number] Hemoglobin 13.9 12.0 - 15.5 POWERCHART GDL Hematocrit 42.6 34.9 - 44.5 POWERCHART MCV 88.6 82.0 - 98.0 POWERCHART FL HX RDW 12.8 11.9 - 15.5 POWERCHART Platelet Count 298 150 - 450 POWERCHART X109L Specimen (Source) Anatomical Collection Method Collection Time Re ceived Time Location / / Volume Laterality Blood 11/06/2015 4:36 PM CDT Fortunato Glover M.D. LAB BLOOD ADD-ON Performing Organization Address City/[facility]/ZIP Code Phon e Number POWERCHART Creatinine with eGFR (11/06/2015 4:36 PM CDT) P athologist Signature Creatinine, S 0.7 0.6 - 1.1 POWERCHART MGDL HXeGFR (MDRD) >60 >=60 POWERCHART [id number] eGFR >60 >=60 POWERCHART Black/ [id number] Salvadorean Specimen (Source) Anatomical Collection Method Collection Time Re ceived Time Location / / Volume Laterality Blood 11/06/2015 4:36 PM CDT Fortunato Glover M.D. LAB BLOOD ADD-ON Performing Organization Address City/State/ZIP Code Phon e Number POWERCHART BUN (Blood Urea Nitrogen) (11/06/2015 4:36 PM CDT) P athologist Signature BUN (Blood Urea 10 6 - 21 MGDL POWERCHART Nitrogen), S Specimen (Source) Anatomical Collection Method Collection Time Re ceived Time Location / / Volume Laterality Blood 11/06/2015 4:36 PM CDT Fortunato Glover M.D. LAB BLOOD ADD-ON Performing Organization Address City/State/ZIP Code Phon e Number POWERCHART Lipid Panel (11/06/2015 4:36 PM CDT) P athologist Signature Calculated LDL 85 <=129 MGDL POWERCHART Comment: 2013 National Lipid Association recommen dations for LDL-C in adults ages 18 and up: Desirable <100 mg/dL Above desirable 100-129 mg/dL Borderline high 130-159 mg/dL High 160-189 mg/dL Very High 190 mg/dL 2014 National Lipid Association recommen dations for LDL-C in children ages 2 to 17. Acceptable <110 mg/dL Borderline High 110-129mg/dL High 130 mg/dL LDL-C >190mg/dL: The markedly elevated LDL level is suggestive of a genetic condition such as familial hypercholesterolemia(FH) or familial defective apolipoprotein B-100 (FDB). Molecular genetic t esting for FH and FDB is available [facility]: FH/ADH Genetic Reflex Root el (test ADHP). Acquired (non-genetic) causes of markedly increased LDL cholesterol include cholestatic liver disease due to the presence of LpX. If a genetic form of hypercholesterolemia is suspected, family studies including biochemical testing fo r lipids (total cholesterol,triglycerides, LDL cholesterol and HDL cholesterol) are recommended. ??Please contact the laboratory at or the on-line test catalog at [employer] for information about how to order these sylvie ts or to speak with a genetic counselor. Further interpretation would require clinical information. Total Cholesterol/HDL Ratio 2.36 PO WERCHART Cholesterol, Total 182 <=199 MGDL POWERCHART Comment: 2013 National Lipid Association recommen dations for Total Cholesterol in adults ages 18 and up: Desirable <200 mg/dL Borderline high 200-239 mg/dL High 240 mg/dL 2014 National Lipid Association recommen dations for Total Cholesterol in children ages 2 to 17. Acceptable <170 mg/dL Borderline High 170-199 mg/dL High 200 mg/dL HX HDL 77 >=50 MGDL POWERCHART Comment: 2014 National Lipid Association recommen dations for HDL-C in adults ages 18 and up: Low <40 mg/dL (Men) Low <50 mg/dL (Women) 2013 National Lipid Association recommen dations for HDL-C in children ages 2 to 17. Low <40 mg/dL Borderline Low 40-45 mg/dL Acceptable >45 mg/dL Triglycerides 99 <=149 MGDL POWERCHART Comment: 2013 National Lipid Association recommen dations for Triglycerides in adults ages 18 and up: Normal <150 mg/dL Borderline High 150-199 mg/dL High 200-499 mg/dL Very High 500 mg/dL 2013 National Lipid Association recommen dations for Triglycerides in children ages 2 to 9. Acceptable <75 mg/dL Borderline High 75-99 mg/dL High 100 mg/dL 2014 National Lipid Association recommen dations for Triglycerides in children ages 10 to 17. Acceptable <90 mg/dL Borderline High 90-129 mg/dL High 130 mg/dL Trigs >400mg/dL: Triglycerides >400 mg/ dL. Calculated LDL cholesterol is not valid. Non-HDL cholesterol may be used for risk assessment when triglycerides are >400mg/dL. HXLDL/HDL 1 POWERCHART Specimen (Source) Anatomical Collection Method Collection Time Re ceived Time Location / / Volume Laterality Blood 11/06/2015 4:36 PM CDT Fortunato Glover M.D. LAB BLOOD ADD-ON Performing Organization Address City/State/ZIP Code Phon e Number POWERCHART (ABNORMAL) bHCG (Beta-Human Chorionic Gonadotropin), Quantitative (11/06/2015 11:22 AM CDT) Analysis Performed At Patho logist Time Signature Beta-HCG, 1704.0 (H) <=4.9 IUL POWERCHART Quantitative, S Comment: Quin- and postmenopausal female s >40 years of age may have detectable hCG concentrations (<14 IU/L) due to pituita ry production of hCG. Specimen (Source) Anatomical Collection Method Collection Time Re ceived Time Location / / Volume Laterality Blood 11/06/2015 11:22 AM CDT Fortunato Glover M.D. LAB BLOOD ADD-ON Performing Organization Address City/State/ZIP Code Phon e Number POWERCHART documented in this encounter Visit Diagnoses Not on filedocumented in this encounter
--- OUTSIDE RECORDS SUMMARY | 2022-02-22 12:38 | XMS_ITS | Encounter Summary ---
:1985 Author Organization [facility] Address [address] [place] [address] Care Team Providers Name Role Phone Unavailable Primary Care Provider Unavailable Encounter Details Date Type Department Care Team Description 01/08/2015 Hospital Encounter HX [facility] Ken Hernandez M.D. [address], [address] [id number] (Wo rk) Social History Tobacco Use Types Packs/Day Years Used Date Smoking Tobacco: Never Assessed Alcohol Habits Answer Date Recorded How often do you have a drink containing alcohol? Never 06/09/2021 How many drinks containing alcohol do you have on a typical Not asked day when you are drinking? How often do you have six or more drinks on one occasion? 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 - 01/08/2015 11:16 AM CDT [id number] CHIEF COMPLAINT/REASON FOR VISIT Followup status post repair of upper lip that was performed on 01/01/2015. HISTORY OF PRESENT ILLNESS Patient states that, since the procedure she has continued to smoke and she has noticed 2 days ago that one of the sutures came out of her lip and her lip fell apart. PHYSICAL EXAMINATION She has a dehiscence of the lip repair involving the oral mucosa as well as the dry mucosa. She is intact at the vermilion border, but she has retraction of the orbicularis donell and what appears to be some loss of the mucosa on the distal aspect of the tip. IMPRESSION/REPORT/PLAN Dehiscence of lip and some tissue due to smoking. PLAN: To go to the operating room on 01/09/2015 for repair of the lesion under sedation. I discussedwith Preet. She absolutely must stop smoking. This is the reason she is falling apart and she cannot continue to smoke. Patient states her understanding. Today, electronic medical record orders were entered and date of surgery is set. Patient already has postsurgical pain meds, so no further scripts were written. Length of today's visit was 15 minutes. Terry Pettit M.D./cathy Electronically Signed By: TERRY PETTIT MD On: 01/09/2015 11:43 AM Source: [facility]OL[facility]YNON[facility] Document Id: [id number] documented in this encounter H&P Notes Natalie Amaral M.D. - 01/08/2015 11:16 AM CDT [id number] CHIEF COMPLAINT/REASON FOR VISIT Proposed surgery date: 01/09/15 Surgeon: Dr. Pettit Proposed surgery: Repair of L upper lip Location: [place] HISTORY OF PRESENT ILLNES Dr. Pettit has requested that I perform a preoperative evaluation of risk for Preet who is having left upper lip repaired on 01/09/15 at [place]. The laceration happened on January 01 and was initially repaired in the office by Dr. Pettit. SYSTEMS REVIEW GENERAL: Negative for recent fever, weight loss, extreme fatigue. EYES: Negative for double vision, sudden loss of vision. ENT: Negative for sore throat, runny nose, ear pain, hearing loss. HEART: Negative for chest pain, pain in legs relieved with rest, irregular heartbeats. RESPIRATORY: Negative for cough, wheezing, shortness of breath, excessive snoring. GASTROINTESTINAL: Negative for nausea, vomiting, heartburn, abdominal pain, bloating, constipation, diarrhea, blood in stools. GENITOURINARY: Negative for irregular menses, vaginal bleeding after menopause (MAKE SURE TO DELETE THE ONE THAT DOESN'T APPLY), frequent or painful urination, bloody urine. SKIN: Negative for rash, sore(s), excessive bruising, change of a mole. NEUROLOGICAL: Negative for headache, persistent weakness or numbness on one side of the body, falling. MUSCULOSKELETAL: Negative for joint pain, muscle weakness. MENTAL HEALTH: Negative for depression, anxiety, suicidal thoughts. LYMPH: Negative for excessive thirst or urination, cold or heat intolerance, breast mass, swelling in legs, feet or hands. BLOOD: Negative for unusual bruising or bleeding, enlarged lymph nodes. ALLERGIES Vicodin. Strawberries tomatoes MEDICATIONS vitamins. Tegretol 200 mg 2 tabs twice a day. PAST SURGICAL/ MEDICAL HISTORY Seizures disorder recently 1-2 seizures per month Hx Vaginal delivery ,1 and post- hemorrhage Hx of methamphetamine and heroin use Hx of alcohol abuse Nephrolithiasis in 2011 with ureteral stent placement Hx of chlamydia age 17 Hx ascus pap in 2010 Tobacco use Status post tonsillectomy and angiectomy Hx of colposcopy Hx of wisdom teeth extraction. Hx of right patella fracture February 2014 FAMILY Mother with seizures and alcoholism. Brother with seizures. Sister with psychiatric illness that committed suicide. Patient denies and bleeding or clotting disorders, anesthesia reactions, or heart problems. SOCIAL Single, unemployed she smokes a half pack of cigarettes a day. Patient does not use illicit drugs oralcohol any more. After today she is going to try not to smoke anymore, Doctors told her that smoking will cause new tissue not to grow. VITAL SIGNS HEIGHT: 163 cm WEIGHT: 57.6 kg TEMP: 36.8 DegC PULSE: 66 /min RESP RATE: 18 /min SYSTOLIC: 100 mmHg DIASTOLIC: 64 mmHg PHYSICAL EXAMINATION GENERAL: Well appearing and in no acute distress. Conjunctivae and sclerae clear bilaterally without injection or icterus. erythema, edema, pus, or petechiae. Airway patent. palpable masses. No nipple discharge. No axillary lymphadenopathy. HEART: Regular rate and rhythm with normal S1 and S2. No extra heart sounds noted. No murmurs, rubs,or gallops auscultated. No heaves or thrills palpated. LUNGS: Clear to auscultation bilaterally. No wheezes, rubs, or rales noted. Normal effort with no retractions or use of accessory muscles. Able to speak in full sentences. ABDOMEN: Soft, nontender, nondistended with normal active bowel sounds. No hepatosplenomegaly or masses identified. No bruits auscultated. SPINE: No scoliosis noted. No CVA tenderness. No muscle spasm or bony tenderness noted. MENTAL: Patient is alert and oriented x3. Does not appear depressed or anxious. Mood is good with appropriate affect. Speech and thought content and pattern are within normal limits. Does not appear sofya delusional. No other psyche problems are noted. NEURO: non focal. Cranial nerves 2-12 intact. DTRs 2+ and equal globally. Strength 5+ and equal globally. Sensation intact throughout. Rapid alternating movements normal. EOMI with no nystagmus. SKIN: Normal color. No lesions or rash. Moist mucous membranes. Good skin turgor. Brisk capillary refill. IMPRESSION/REPORT/PLAN 1. Preoperative Evaluation of Risk. The patient is ASA category 2 meaning mild risk due to current smoking (quitting today, per patient)and hx of former methamphetamine and heroin use (although those were years ago). The patient is a suitable candidate for anesthesia and there is no contraindication up to and including general anesthesia at [facility]. Cardiac risk factors: none Pulmonary risk factors: smoker Sleep Apnea: none Steroid use within the past 12 months: none Diabetes: none Bleeding risk factors: none Anesthesia reactions: none Need for prophylactic antibiotics: none Beta shila: none 2. Epilepsy, not well controlled. She was recently increased at the ER from 800mg total daily dose to 1000mg total daily dose. Ordered Carbamazepine, Free and Total today to follow up on her level. Nellywisae continue taking her carbamazepine 100mg chewable 0.5 tab 4 times a day with a 200mg tab for total of 250 mg per dose 4 times a day. Follow up with Dr. Lito Riojas in 1 month to reevaluate the seizures and medication. This document serves as a record of services personally performed by Dr. Natalie Amaral. It was created on their behalf by Emmie Mendoza, a trained medical office clerk. The creation of this record is based on the scribe's personal observations and the provider's statements to them. This document has been checked and approved by the attending provider. Natalie Amaral M.D./pablito Electronically Signed By: NATALIE AMARAL MD On: 04/26/2015 01:38 AM Source: [facility] Document Id: [id number] documented in this encounter Miscellaneous Notes Miscellaneous - Terry Pettit M.D. - 01/08/2015 3:48 PM CDT Ambulatory Patient Summary [facility] [address] [place] [id number] Visit Information Name: PREET TURK [facility] Number: [id number] Current Date: 01/08/2015 15:48:58 Physicians Attending Provider: TERRY PETTIT MD Primary Care Provider: ANUPAM RIOJAS MD PREET TURK has been given the [...] Take Indications/Special Instructions/Comments/Notes for Patient Medication Changes/Routing carBAMazepine (carbamazepine 200 mg oral tablet) 1 Tablet(s), Oral, four times a day Take with 1/2 of a 100mg tab for total dose of 250mg 4xday This is a CHANGE carBAMazepine (carBAMazepine 100 mg oral tablet, chewable) 0.5 Tablet(s), Chewed, four times a day Take with a 200mg tab for a total of 250mg per dose, 4xday oxyCODONE-acetaminophen (Percocet 2.5/325 oral tablet) 1 Tablet(s), Oral, every 6 hours as needed for Pain No more than 4,000mg acetaminophen/24hrs Stop Taking the Following Medications: ferrous sulfate (Slow Fe (as elemental iron) 45 mg oral tablet, extended release) folic acid (folic acid 1 mg oral tablet) multivitamin, ( Plus oral tablet) oxyCODONE-acetaminophen (Percocet 5/325 oral tablet) Medication list as of 01-08-15 15:48 Attention: If you have any medications at home that are not on this list, DO NOT take them until youcontact your provider for clarification. Give a copy of your medication list to your primary care provider. Update your medication list any time medications or doses are changed and carry your medication list at all times in case of emergency. 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 Go to [email or web address] and click on Create Your Account. Then, follow the directions to complete the online form. Youll be asked for your [facility] number which you can find at the top of this document. Your Goals/Additional instructions: Source: [facility] Document Id: [id number] Miscellaneous - Terry Pettit M.D. - 01/08/2015 3:48 PM CDT Ambulatory Discharge Medication List [address] [id number] Visit Information Name: PREET TURK [facility] Number: [id number] Visit Date: 01/08/2015 15:48:57 Attending Provider: TERRY PETTIT MD Primary Care Provider: ANUPAM RIOJAS MD PREET TURK has been given the following list of medications: Your Medications It is important to take your medications as directed. Use a pill box or chart to help remind you to take your medications. Please let your doctor or nurse know if you have problems taking your medications. Medication/Strength How to Take Indications/Special Instructions/Comments/Notes for Patient Medication Changes/Routing carBAMazepine (carbamazepine 200 mg oral tablet) 1 Tablet(s), Oral, four times a day Take with 1/2 of a 100mg tab for total dose of 250mg 4xday This is a CHANGE carBAMazepine (carBAMazepine 100 mg oral tablet, chewable) 0.5 Tablet(s), Chewed, four times a day Take with a 200mg tab for a total of 250mg per dose, 4xday oxyCODONE-acetaminophen (Percocet 2.5/325 oral tablet) 1 Tablet(s), Oral, every 6 hours as needed for Pain No more than 4,000mg acetaminophen/24hrs Stop Taking the Following Medications: ferrous sulfate (Slow Fe (as elemental iron) 45 mg oral tablet, extended release) folic acid (folic acid 1 mg oral tablet) multivitamin, ( Plus oral tablet) oxyCODONE-acetaminophen (Percocet 5/325 oral tablet) Medication list as of 01-08-15 15:48 Attention: If you have any medications at home that are not on this list, DO NOT take them until youcontact your provider for clarification. Give a copy of your medication list to your primary care provider. Update your medication list any time medications or doses are changed and carry your medication list at all times in case of emergency. Electronically Signed By: TERRY PETTIT MD Signed On:08-JAN-2015 15:41:52 Additional Information: Source: [facility] [employer] Document Id: [id number] Radha - Terry Pettit M.D. - 01/08/2015 11:41 AM CDT Normal Results Letter 08 January 2015 PREET TURK [address] [id number] Dear PREET TURK, You are not able to apply for employment until you have recovered from your lip laceration. Sincerely, TERRY PETTIT [address] [place] [id number] Electronic Signature Electronically Signed By: TERRY PETTIT MD On: 08 January 2015 This document has images extracted. Source: [facility] Document Id: [id number] Electronically signed by Kemal [facility] Brand Ambassador [id number] at 12/12/2016 10:35 AM CDT Radha - Sara Chang [employer] - 01/08/2015 11:17 AM CDT Adult Child & Adolescent Psychiatrist Intake/History Adult Child & Adolescent Psychiatrist Intake/History Entered On: 01/08/2015 11:18 CDT Performed On: 01/08/2015 11:17 CDT by SARA CHANG [facility] Intake Chief Complaint : recheck lip Height : 163 cm(Converted to: 5 ft 4 inch(es), 64 inch(es)) SARA CHANG [facility] - 01/08/2015 11:17 CDT General Info Information Given By : Patient Preferred Communication Mode : Verbal Languages : Malian Is Patient Female and 13-50 no hysterectomy : No SARA CHANG [facility] - 01/08/2015 11:17 CDT Subjective Pain Symptoms : Yes SARA CHANG [facility] - 01/08/2015 11:17 CDT Pain Scale Pain Scale Verbal 0-10 : Open SARA CHANG [facility] - 01/08/2015 11:17 CDT Pain Pain Assessment Grid Pain 1 Location : Other: upper lip Laterality : Left Intensity : 4 SARA CHANG [facility] - 01/08/2015 11:17 CDT Dependent Habits Tobacco Use/Currently Using : Yes Exposure to Tobacco Smoke : Patient smokes Smoking Status : Current every day smoker SARA CHANG [facility] - 01/08/2015 11:17 CDT Tobacco Use Grid Type : Cigarettes Cigarette Use Packs/Day : 0.4 SARA CHANG [facility] - 01/08/2015 11:17 CDT Caffeine Use Grid Caffeine Use : Current Type : Coffee, Soft drinks Frequency : Daily Amount : 2 pots SARA CHANG [facility] - 01/08/2015 11:17 CDT Recreational Drug Use Grid Drug Use : None SARA CHANG [facility] - 01/08/2015 11:17 CDT [facility] Document Id: [id number]!36 documented in this encounter Plan of Treatment Not on filedocumented as of this encounter Visit Diagnoses Not on filedocumented in this encounter
--- OUTSIDE RECORDS SUMMARY | 2022-02-22 12:38 | XMS_ITS | Encounter Summary ---
:1985 Author Organization [facility] Address [address] [place] [address] Care Team Providers Name Role Phone Unavailable Primary Care Provider Unavailable Encounter Details Date Type Department Care Team Description 08/10/2016 Hospital Encounter HX [facility] Olivia Kilgore M.D. [address] [place] [address] (Wo rk) Social History Tobacco Use Types [...] at Date Recorded Female 06/09/2021 2:09 PM FORESTRY FOREMAN documented as of this encounter Last Filed Vital Signs Vital Sign Reading Time Taken Comments Blood Pressure 110/70 08/10/2016 1:57 PM FORESTRY FOREMAN Pulse 72 08/10/2016 1:57 PM FORESTRY FOREMAN Temperature - - Respiratory Rate - - Oxygen Saturation - - Inhaled Oxygen Concentration - - Weight 64.5 kg (142 lb 3.2 oz) 08/10/2016 1:57 PM FORESTRY FOREMAN Height 163 cm (5' 4.17) 08/10/2016 1:57 PM FORESTRY FOREMAN Body Mass Index 24.28 08/10/2016 1:57 PM FORESTRY FOREMAN documented in this encounter Medications at Time [...] documented as of this encounter Progress Notes Alpa Kilgore M.D. - 08/10/2016 1:51 PM CST [id number] CHIEF COMPLAINT/REASON FOR VISIT Shoulder pain. HISTORY OF PRESENT ILLNESS Preet is in today for evaluation of right shoulder pain. She sustained an injury when she fell on the ice 2 days ago landing on the right shoulder with her arm held to the side. She has noted some pain with range of motion and also a grinding sound in the shoulder. No loss of consciousness. No other injuries noted. MEDICATIONS Lamotrigine 100 mg 2 times daily. Vimpat 100 mg 2 times daily. Tylenol as needed. Ibuprofen as needed. ALLERGIES Vicodin. VITAL SIGNS Blood pressure 110/70, pulse 72. PHYSICAL EXAMINATION Palpation of the right shoulder structures reveals diffuse glenohumeral joint pain. She does have good paperhanger assistant strength and normal reflexes. Normal sensation. Range of motion: Actively she can abduct the shoulder to about 60 degrees. I am able to passively get it up to about 100 degrees. Also with internal and external rotation she can do actively to 30 degrees. I am able to get full motion passively. DIAGNOSTICS X-rays of the right shoulder are obtained. No gross bony abnormality noted. IMPRESSION/REPORT/PLAN Right rotator cuff strain. PLAN: I will treat her with tramadol 50 mg every 6 hours as needed for pain. I have also given her ahandout and a Thera-Band stretch elastic band to use to do home exercises. I have told her that if she has problems with this beyond 1 to 2 weeks, our next step would be to try a cortisone injection and she can let us know if she wishes to do that. Alpa Kilgore M.D./cathy Electronically Signed By: ALPA KILGORE MD On: 08/11/2016 08:32 AM Source: [facility] [email or web address] Document Id: [id number] STRY FOREMAN documented in this encounter Nursing Notes Layne Muhammad L.P.N. - 08/24/2016 4:07 PM CST CSPP Pain Controlled Substance Renewal Urine screening: [X] was not requested by the prescribing provider [_] was requested by the prescribing provider Pain Scale (0-10): Current pain is: 8 Average pain in the last week: 9 Worst pain in the last week: 9 The terms of the Controlled Substance Prescribing Plan and signed Controlled Substance Agreement were reviewed and the patient meets criteria for renewal as set by Provider _ on _. Prescription disposition: [_] Given to patient [_] Patient to mixing picker tender [_] cooker syrup by someone other than patient. Specific surrogate: _ [_] Mailed to patient [_] Mailed to pharmacy [_] Faxed to pharmacy The patient is due for their next renewal on: _ Electronically Signed By: LAYNE MUHAMMAD LPN On: 08/24/2016 04:08 PM Source: [facility] [employer] Document Id: [id number] STRY FOREMAN documented in this encounter Miscellaneous Notes Telephone Encounter - Conversion, Historical Provider Ser - 08/18/2016 12:06 PM CST *Phone Message- BrendonMicha Document Contains Addenda Addendum by TRISTIN BRICE LPN on August 25, 2016 13:21:54 FORESTRY FOREMAN Patient notified of recommendations below and verbalized understanding. No further concerns. Addendum by TRISTIN BRICE LPN on August 25, 2016 13:02:56 FORESTRY FOREMAN Left message to call back Addendum by LEELA FENG PA-C on August 24, 2016 19:17:27 FORESTRY FOREMAN From: LEELA FENG PA-C To: [facility] 1 Nurse; Sent: 08/24/2016 19:17:27 FORESTRY FOREMAN ! Subject: RE: follow up shoulder Please notify MRI shows mild tendonitis and mild bursitis, no significant injury noted. No refills of percocet are indicated; will send naproxen to pharmacy for her. She can try this in place of ibuprofen. She needs to start physical therapy in order to prevent frozen shoulder. This is going to be very important. She can still follow up with ortho as planned as they may be able to give her an injection if she's not getting better. Otherwise start with PT only and cancel the ortho appt for now.. Addendum by LAYNE MUHAMMAD LPN on August 24, 2016 16:12:31 FORESTRY FOREMAN Caller is: ( X_ ) Patient ( _ ) Parent ( _ ) Spouse ( _ ) Child ( ) Other: _ Call back telephone number: _ Reason for Call: -Med refill Chief Complaint: patient was informed her RX will be ready for mixing picker tender in the morning after it is signed. Pain scale was already completed _ Disposition of Call/Coordination of Care: ( _ ) Recommend immediate attention call 911 ( _ ) Report to nearest Emergency Department ( _ ) Recommend patient does not drive to the Emergency Department ( _ ) Recommend patient/caller schedule an appointment ( _ ) Transfer patient/caller to the appointment desk ( _ ) Notified Provider _ ( _ ) Awaiting provider recommendations ( _ ) Referral to services or providers: _ ( _ ) Self-care appropriate at this time: _ Patient/Caller response to Education/Information given: ( _ ) Verbalizes understanding of instructions ( _ ) Provide intervention per provider instruction ( _ ) Reinforce information already given ( _ ) Reinforce Plan of Care ( _ ) Provide preprinted information by mail (if applicable) Patient/Caller response to follow the plan of care: ( _ ) Willing and able to follow recommendation (Plan of Care). ( _ ) Not able to follow recommendations. Enter the recommended level of care and patients response to the recommendation: Source/References used (if applicable): _ Call back telephone number: _ OK to leave message on voice mail? _ OK to send message via patient portal? _ Patient told to expect return call: ( _ ) today ( _ ) tomorrow ( _ ) next work day Callers preferred language: _ Was an ten pin bowling centre manager used for this call? _ Other ( --_ ) Addendum by BETZY MCINTYRE on August 24, 2016 15:47:01 FORESTRY FOREMAN Patient called back, Please try calling her back. Addendum by LAYNE MUHAMMAD LPN on August 24, 2016 15:41:58 FORESTRY FOREMAN left a message to call back- a new RX needed to be printed, will have PCP sign in the morning Addendum by REBECCA HAQ on August 24, 2016 11:44:30 FORESTRY FOREMAN Pt called in, would like call back regarding status of Rx. Addendum by LEELA FENG PA-C on August 24, 2016 06:08:53 FORESTRY FOREMAN will wait for MRI results Addendum by LAYNE MUHAMMAD LPN on August 23, 2016 15:06:36 FORESTRY FOREMAN From: LAYNE MUHAMMAD LPN ([facility] 1 Nurse) To: LEELA FENG PA-C; Sent: 08/23/2016 15:06:36 FORESTRY FOREMAN Subject: FW: follow up shoulder Caller is: ( X_ ) Patient ( _ ) Parent ( _ ) Spouse ( _ ) Child ( ) Other: _ Call back telephone number: _ Reason for Call: -gather more info about RX request per provider. Chief Complaint: Patient has an MRI scheduled for tomorrow and Ortho consult on . She says she has enough for a few days but wanted to be proactive _ Disposition of Call/Coordination of Care: ( _ ) Recommend immediate attention call 911 ( _ ) Report to nearest Emergency Department ( _ ) Recommend patient does not drive to the Emergency Department ( _ ) Recommend patient/caller schedule an appointment ( _ ) Transfer patient/caller to the appointment desk ( _ ) Notified Provider _ ( _ ) Awaiting provider recommendations ( _ ) Referral to services or providers: _ ( _ ) Self-care appropriate at this time: _ Patient/Caller response to Education/Information given: ( _ ) Verbalizes understanding of instructions ( _ ) Provide intervention per provider instruction ( _ ) Reinforce information already given ( _ ) Reinforce Plan of Care ( _ ) Provide preprinted information by mail (if applicable) Patient/Caller response to follow the plan of care: ( _ ) Willing and able to follow recommendation (Plan of Care). ( _ ) Not able to follow recommendations. Enter the recommended level of care and patients response to the recommendation: Source/References used (if applicable): _ Call back telephone number: _ OK to leave message on voice mail? _ OK to send message via patient portal? _ Patient told to expect return call: ( _ ) today ( _ ) tomorrow ( _ ) next work day Callers preferred language: _ Was an ten pin bowling centre manager used for this call? _ Other ( --_ ) Addendum by LAYNE MUHAMMAD LPN on August 23, 2016 14:48:40 FORESTRY FOREMAN left a message to call back Addendum by BETZY MCINTYRE on August 23, 2016 14:21:55 FORESTRY FOREMAN Patient called back, plese try calling her back Addendum by LAYNE MUHAMMAD LPN on August 23, 2016 13:34:22 FORESTRY FOREMAN left a message to call back Addendum by LEELA FENG PA-C on August 23, 2016 13:04:09 FORESTRY FOREMAN From: LEELA FENG PA-C To: [facility] 1 Nurse; Sent: 08/23/2016 13:04:09 FORESTRY FOREMAN Subject: follow up shoulder I gave her 20 tabs of percocet 4 days ago, and she is to have MRI and ortho consult this week... Please advise that she's taking the percocet more often than she should, this is only meant for severe pain and has risks if taking too much. No refills at this time, need to see results of MRI. Does she have appts scheduled for MRI and ortho? Leela Addendum by SHERIF LEE LPN on August 23, 2016 12:16:54 FORESTRY FOREMAN From: SHERIF LEE LPN ([address] Nurse) Cc: LEELA FENG PA-C; Sent: 08/23/2016 12:16:54 FORESTRY FOREMAN Subject: FW: *Phone Message- Valeriy Addendum by ALPA KILGORE MD on August 23, 2016 12:12:33 FORESTRY FOREMAN From: ALPA KILGORE MD To: [address] Nurse; Sent: 08/23/2016 12:12:33 FORESTRY FOREMAN Subject: RE: *Phone Message- Vaelriy I do not prescribe Percocet for this type of pain. BB Addendum by ADALI VILLANUEVA LPN on August 23, 2016 10:19:47 FORESTRY FOREMAN From: ADALI VILLANUEVA LPN ([address] Nurse) To: ALPA KILGORE MD; Sent: 08/23/2016 10:19:47 FORESTRY FOREMAN Subject: FW: *Phone Message- Valeriy Addendum by DONTA OWENS RN on August 23, 2016 08:49:50 FORESTRY FOREMAN From: DONTA OWENS RN ([facility]) To: [address] Nurse; Sent: 08/23/2016 08:49:50 FORESTRY FOREMAN Subject: FW: *Phone Message- Valeriy Addendum by JACQUE MAYORGA on August 23, 2016 08:46:49 FORESTRY FOREMAN pt calling to see if she can get a refill on her Percocet. Please call pt at [phone]. Thank you Addendum by DONTA OWENS RN on August 18, 2016 14:04:14 FORESTRY FOREMAN Patient c/o worsening shoulder pain and side effects of prescribed tramadol. Was successfully transferred to the clinical training specialist/Nurseline. Addendum by CHRISTINA GONZALES LPN on August 18, 2016 13:53:53 FORESTRY FOREMAN From: CHRISTINA GONZALES LPN ( [facility] Sent: 08/18/2016 13:53:53 FORESTRY FOREMAN Subject: FW: *Phone Message- Valeriy From: DYLAN HIGH ([facility] Med 2E Nurse) To: [facility] 2E Nurse; Sent: 08/18/2016 12:06:40 FORESTRY FOREMAN Subject: *Phone Message- Valeriy Caller is: ( s ) Patient ( ) Mother ( ) Father ( ) Spouse ( ) Daughter ( ) Son ( ) Pharmacy ( ) Other: Physician: Patient MRN #: Reason for Call: Message: would like a call to disucss continued shoulder pain and reaction to pain meds, please call [phone] Advice/Action: Source used: ( ) Verbalizes understanding of instructions ( ) Instructed to call back if symptoms worsen or do not resolve ( ) Refused to see provider ( ) Appointment Scheduled ( ) OK to leave message on voice mail ( ) Patient told to expect return call: ( ) today ( ) tomorrow ( ) next work day ( ) Patient's email ( ) Patient told physician out of office, will call upon return call on ( ) ( ) Patient told physician out of office, routed to other physician ( ) Other ( ) Call back telephone number ( ) Call back cell phone number ( ) Source: [facility] POWERCHART Document Id: [id number] Miscellaneous - Alpa Kilgore M.D. - 08/10/2016 6:08 PM CST Ambulatory Discharge Medication List [facility] [address] [place] [id number] Visit Information Name: PRE[facility]UR[facility] Number: [id number] Current Date: 08/10/2016 18:08:39 Attending Provider: ALPA KILGORE MD Primary Care Provider: ANUPAM BOONE MD [...] 1 Tablet(s), Oral, two times a day traMADol (traMADol 50 mg oral tablet) 1 Tablet(s), Oral, every 6 hours as needed for Pain New Routedto Printer Stop Taking the Following Medications: Medication list as of 08-10-16 18:08 Attention: If you have any medications at home that are not on this list, DO NOT take them until youcontact your provider for clarification. Give a copy of your medication list to your primary care provider. Update your medication list any time medications or doses are changed and carry your medication list at all times in case of emergency. Electronically Signed By: ALPA KILGORE MD Signed On:10-AUG-2016 18:08:37 Additional Information: Source: [facility] POWERCHART Document Id: [id number] STRY FOREMAN Miscellaneous - Alpa Kilgore M.D. - 08/10/2016 6:08 PM CST Ambulatory Patient Summary [place] [address] [phone] Visit Information Name: [facility] Number: [id number] Current Date: 08/10/2016 18:08:40 Physicians Attending Provider: ALPA KILGORE MD Primary Care Provider: ANUPAM BOONE MD [...] 1 Tablet(s), Oral, two times a day traMADol (traMADol 50 mg oral tablet) 1 Tablet(s), Oral, every 6 hours as needed for Pain New Routedto Printer Stop Taking the Following Medications: Medication list as of 08-10-16 18:08 Attention: If you have any medications at home that are not on this list, DO NOT take them until youcontact your provider for clarification. Give a copy of your medication list to your primary care provider. Update your medication list any time medications or doses are changed and carry your medication list at all times in case of emergency. Electronically Signed By: ALPA KILGORE MD Signed On:10-AUG-2016 18:08:37 Your Allergies & Intolerances Substance Reaction Symptoms [...] if you dont have one. Go to [email or web address] and click on Create Your Account. Then, follow the directions to complete the online form. Youll be asked for your [facility] number which you can find at the top of this document. Your Goals/Additional instructions: Source: [facility] POWERCHART Document Id: [id number] STRY FOREMAN Miscellaneous - Adali Villanueva L.P.N. - 08/10/2016 1:57 PM CST Adult Branch Library Clerk Intake/History Adult Branch Library Clerk Intake/History Entered On: 08/10/2016 13:59 FORESTRY FOREMAN Performed On: 08/10/2016 13:57 FORESTRY FOREMAN by ADALI VILLANUEVA LPN Intake Chief Complaint : right shoulder pain fell on ice Peripheral Pulse Rate : 72 /min Systolic Blood Pressure : 110 mmHg Diastolic Blood Pressure : 70 mmHg NIBP Mean : 83 mmHg BP Location : Right upper extremity Blood Pressure Cuff Size : Regular Height : 163 cm(Converted to: 5 ft 4 inch(es), 64 inch(es)) Actual Weight : 64.5 kg(Converted to: 142 lb 3 oz) Dosing Weight Clinic : 64.5 kg Clinic BSA : 1.71 Body Mass Index : 24.28 kg/m2 ADALI VILLANUEVA LPN - 08/10/2016 13:57 FORESTRY FOREMAN General Info Information Given By : Patient Languages : Malagasy Is Patient Female and 13-50 no hysterectomy : Yes Status : Patient denies Are you ? : No ADALI VILLANUEVA LPN - 08/10/2016 13:57 FORESTRY FOREMAN Subjective Pain Symptoms : No ADALI VILLANUEVA LPN - 08/10/2016 13:57 FORESTRY FOREMAN Dependent Habits Exposure to Tobacco Smoke : Patient smokes Smoking Status : Current every day smoker Tobacco 2A : Yes Tobacco Use/Currently Using : Yes Tobacco Use/Last 30 Days : Yes Tobacco Use/Last 12 months : Yes Type : Cigarettes: Less than 20 per day Tobacco Use/Advised to Quit : No ADALI VILLANUEVA ERMA - 08/10/2016 13:57 FORESTRY FOREMAN Caffeine Use Grid Caffeine Use : Current Type : Coffee, Soft drinks Frequency : Daily Amount : 2 pots ADALI VILLANUEVA ERMA - 08/10/2016 13:57 FORESTRY FOREMAN Recreational Drug Use Grid Drug Use : None ADALI VILLANUEVA ERMA - 08/10/2016 13:57 FORESTRY FOREMAN Source: [facility] POWERCHART Document Id: [id number] FORESTRY FOREMAN!40 STRY FOREMAN documented in this encounter Plan of Treatment Not on filedocumented as of this encounter Procedures Procedure Name Priority Date/Time Associated Diagnosis Comme nts DX SHOULDER RIGHT Routine 08/10/2016 2:43 PM Resu lts for this 2+ VIEWS FORESTRY FOREMAN procedure are i n the results section. documented in this encounter Results DX Shoulder Right 2+ Views (08/10/2016 2:43 PM FORESTRY FOREMAN) Anatomical Region Laterality Modality Upper Extremity, Shoulder Right Radiographic I maging Specimen (Source) Anatomical Collection Method Collection Time Re ceived Time Location / / Volume Laterality 08/10/2016 2:43 PM FORESTRY FOREMAN Addenda Addendum by Provider, Pippa Yeung n 08/10/2016 2:43 PM FORESTRY FOREMAN RAD^^^OW XR Shoulder Right 2 or more views 08/10/2016 14:43:48 Impressions 08/10/2016 2:57 PM FORESTRY FOREMAN 1. ??No acute findings. Narrative 08/10/2016 2:57 PM FORESTRY FOREMAN EXAM: ??XR Shoulder Right 2 or more view s. DEMOGRAPHICS: ??31 years Female. INDICATION: ??shoulder pain after fall. COMPARISON: ??None available FINDINGS: ??Normal mineralization. Irasema l alignment. No appreciable acute osseous injury of the right should er. If pain persists consider follow-up imag ing. Procedure Note Osbaldo Ferguson M.D. / Provider, Rai gibson M.D. - 01/02/2017 EXAM: XR Shoulder Right 2 or more views. DEMOGRAPHICS: 31 years Female. INDICATION: shoulder pain after fall. COMPARISON: None available FINDINGS: Normal mineralization. Normal alignment. No appreciable acute osseous injury of the right should er. If pain persists consider follow-up imag ing. IMPRESSION: 1. No acute findings. Jenni DOWLING DIAGNOSTIC IMAGING PROCE KIM documented in this encounter Visit Diagnoses Not on filedocumented in this encounter
--- OUTSIDE RECORDS SUMMARY | 2022-02-22 12:38 | XMS_ITS | Encounter Summary ---
:1985 Author Organization [facility] Address [address] [place] [address] Care Team Providers Name Role Phone Unavailable Primary Care Provider Unavailable Encounter Details Date Type Department Care Team Description 11/16/2015 Hospital Encounter HX [facility] Amanda Bryant M.D. 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 Takes 4 tablet (2,000mg total) by mouth as needed for headaches documented as of this encounter Miscellaneous Notes Miscellaneous - Sandra Mullins M.D. - 11/17/2015 7:39 AM CDT Custom Result Letter November 17, 2015 [facility] [address] [place] [address] [place] [id number] Dear PREET TURK, The result of the ultrasound did not show significant amounts of blood in the pelvis and was essentially unchanged from previous ultrasounds. Result Name Current Result Previous Result US OB Transvaginal 11/16/2015 11/06/2015 Sincerely, SANDRA MULLINS [address] [place] [id number] Electronic Signature Electronically Signed By: SANDRA MULLINS MD On: November 17, 2015 This document has images extracted. Source: [facility] POWERCHART Document Id: [id number] documented in this encounter Plan of Treatment Not on filedocumented as of this encounter Procedures Procedure Name Priority Date/Time Associated Diagnosis Comme nts US OB TRANSVAGINAL Routine 11/16/2015 3:42 PM Res ults for this CDT procedure are i n the results section. documented in this encounter Results US OB Transvaginal (11/16/2015 3:42 PM CDT) Anatomical Region Laterality Modality Ultrasound Specimen (Source) Anatomical Collection Method Collection Time Re ceived Time Location / / Volume Laterality 11/16/2015 3:42 PM CDT Addenda Addendum by Provider, Pippa Yeung 11/16/2015 3:42 PM CDT RAD^^^OW US OB Transvaginal 11/16/2015 15:42:54 Impressions 11/16/2015 4:28 PM CDT 1. Stable pelvic ultrasound was suspecte d right ectopic . 2. No free fluid in the abdomen or pelvi s. [facility] [place] PROFESSOR OF PRACTICE Dept. [phone] Narrative 11/16/2015 4:28 PM CDT EXAM: US OB Transvaginal INDICATION: Ectopic follow up REFERRING PHYSICIAN: Dr. Mullins COMPARISON: 11/06/2015 LMP: 10/26/2015 : 5 PARA: 2 NUMBER: No intrauterine identified RIGHT OVARY: ??Unchanged from prior ultr asound however ectopic noted to be stable adjacent to the right ovary LEFT OVARY: ??Appears normal. UTERUS: Appears within normal limits. UTERINE POSITION: Anteverted. CUL DE SAC: No free fluid noted HOUSING ASSISTANT: Carmen Oreilly RDMS. Procedure Note Antonina Majano M.D. / Provider, Maicol wang M.D. - 11/18/2016 EXAM: US OB Transvaginal INDICATION: Ectopic follow up REFERRING PHYSICIAN: Dr. Mullins COMPARISON: 11/06/2015 LMP: 10/26/2015 : 5 PARA: 2 NUMBER: No intrauterine identified RIGHT OVARY: Unchanged from prior ultras ound however ectopic noted to be stable adjacent to the right ovary LEFT OVARY: Appears normal. UTERUS: Appears within normal limits. UTERINE POSITION: Anteverted. CUL DE SAC: No free fluid noted HOUSING ASSISTANT: Carmen Oreilly RDMS. IMPRESSION: 1. Stable pelvic ultrasound was suspecte d right ectopic . 2. No free fluid in the abdomen or pelvi s. [facility] [place] PROFESSOR OF PRACTICE Dept. [phone] Carmen Oreilly R.V.T., NadyaSFlex IMG OB US PROCEDURE S documented in this encounter Visit Diagnoses Not on filedocumented in this encounter
--- OUTSIDE RECORDS SUMMARY | 2022-02-22 12:38 | XMS_ITS | Encounter Summary ---
:[address] [facility] Address [address] [place] [address] Care Team Providers Name Role Phone Unavailable Primary Care Provider Unavailable Encounter Details Date Type Department Care Team Description 2015 Hospital Encounter HX [facility] Ken Hernandez M.D. 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 - 2015 11:09 AM CDT [id number] CHIEF COMPLAINT/REASON FOR VISIT Follow up status post complex repair of upper lip via recreation of defect 2.5 cm in length that wasperformed on 01/09/2015. HISTORY OF PRESENT ILLNESS Patient states that she overall feels like she is recovering well. She finds the sutures annoying but she appreciates that her lip is back together. PHYSICAL EXAMINATION Reveals incision is healing well. The Vicryl sutures are still in place on the white mucosa and the 6-0 Prolene are still in place on the skin of the lip. IMPRESSION/REPORT/PLAN Doing well status post repair of complex laceration that had been complicated by dehiscence and needfor subsequent repair. The patient appears to be compliant with smoking cessation and she appears sofya healing well. PLAN: Suture removal. I advised sun precautions and I also advised Preet that her lip will be swollen and feel distorted for at least 6 months to a year. I will see her again in 1 month for recheck. Length of today's visit was 6 minutes. Terry Pettit M.D./cathy Electronically Signed By: TERRY PETTIT MD On: 01/19/2015 03:53 PM Source: [facility] MHSDOLBEYNONRADSYJenifer Document Id: [id number] documented in this encounter Miscellaneous Notes Miscellaneous - Terry Pettit M.D. - 2015 1:57 PM CDT Ambulatory Patient Summary [facility] [address] [facility] [place] [place] [phone] Visit Information Name: PREET [facility] Number: [id number] Current Date: 2015 13:57:37 Physicians Attending Provider: TERRY PETTIT MD Primary Care Provider: ANUPAM BOONE MD [...] Indications/Special Instructions/Comments/Notes for Patient Medication Changes/Routing carBAMazepine (carBAMazepine 100 mg oral tablet, chewable) 0.5 Tablet(s), Chewed, four times a day Take with a 200mg tab for a total of 250mg per dose, 4xday carBAMazepine (carbamazepine 200 mg oral tablet) 1 Tablet(s), Oral, four times a day Take with 1/2 of a 100mg tab for total dose of 250mg 4xday oxyCODONE-acetaminophen (Percocet 5/325 oral tablet) 1 Tablet(s), Oral, every 6 hours as needed for Pain No more than 4,000mg acetaminophen/24hrs This is a CHANGE Routed to Printer oxyCODONE-acetaminophen (Percocet 5/325 oral tablet) 1 Tablet(s), Oral, every 6 hours oxyCODONE-acetaminophen (Percocet 2.5/325 oral tablet) 1 Tablet(s), Oral, every 6 hours as needed for Pain No more than 4,000mg acetaminophen/24hrs Stop Taking the Following Medications: Medication list as of 01-15-15 13:57 Attention: If you have any medications at [...] Electronically Signed By: TERRY PETTIT MD Signed On:15-JAN-2015 13:57:32 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 Go to [email or web address] and click on Create Your Account. Then, follow the directions to complete the online form. Youll be asked for your [facility] number which you can find at the top of this document. Your Goals/Additional instructions: Source: [facility] POWERCHART Document Id: [id number] Miscellaneous - Terry Pettit M.D. - 2015 1:57 PM CDT Ambulatory Discharge Medication List [facility] [address] [place], [place] [phone] Visit Information Name: PREET [facility] Number: [id number] Visit Date: 2015 13:57:36 Attending Provider: TERRY PETTIT MD Primary Care Provider: ANUPAM BOONE MD [...] Indications/Special Instructions/Comments/Notes for Patient Medication Changes/Routing carBAMazepine (carBAMazepine 100 mg oral tablet, chewable) 0.5 Tablet(s), Chewed, four times a day Take with a 200mg tab for a total of 250mg per dose, 4xday carBAMazepine (carbamazepine 200 mg oral tablet) 1 Tablet(s), Oral, four times a day Take with 1/2 of a 100mg tab for total dose of 250mg 4xday oxyCODONE-acetaminophen (Percocet 5/325 oral tablet) 1 Tablet(s), Oral, every 6 hours as needed for Pain No more than 4,000mg acetaminophen/24hrs This is a CHANGE Routed to Printer oxyCODONE-acetaminophen (Percocet 5/325 oral tablet) 1 Tablet(s), Oral, every 6 hours oxyCODONE-acetaminophen (Percocet 2.5/325 oral tablet) 1 Tablet(s), Oral, every 6 hours as needed for Pain No more than 4,000mg acetaminophen/24hrs Stop Taking the Following Medications: Medication list as of 01-15-15 13:57 Attention: If you have any medications at [...] Electronically Signed By: TERRY PETTIT MD Signed On:15-JAN-2015 13:57:32 Additional Information: Source: [facility] POWERCHART Document Id: [id number] Miscellaneous - Sara Chang CFlexMFlexA. - 2015 11:11 AM CDT Adult Mold Chipper Intake/History Adult Mold Chipper Intake/History Entered On: 2015 11:12 CDT Performed On: 2015 11:11 CDT by [facility]ARA CHANG [facility] Intake Chief Complaint : left upper lip laceration Height : 163 cm(Converted to: 5 ft 4 inch(es), 64 inch(es)) [facility] - 2015 11:11 CDT General Info Information Given By : Patient Preferred Communication Mode : Verbal Languages : Turkish Is Patient Female and 13-50 no hysterectomy : No [facility] - 2015 11:11 CDT Subjective Pain Symptoms : Yes [facility] - 2015 11:11 CDT Pain Scale Pain Scale Verbal 0-10 : Open [facility] - 2015 11:11 CDT Pain Pain Assessment Grid Pain 1 Location : Other: upper lip Laterality : Left Intensity : 4 [facility] - 2015 11:11 CDT Dependent Habits Tobacco Use/Currently Using : No Exposure to Tobacco Smoke : Other: former Smoking Status : Former smoker [facility] - 2015 11:11 CDT Tobacco Use Grid Type : Cigarettes Cigarette Use Packs/Day : 0.4 [facility] - 2015 11:11 CDT Caffeine Use Grid Caffeine Use : Current Type : Coffee, Soft drinks Frequency : Daily Amount : 2 pots [facility] - 2015 11:11 CDT Recreational Drug Use Grid Drug Use : None [facility] - 2015 11:11 CDT Source: [employer] Document Id: [id number] CDT!36 documented in this encounter Plan of Treatment Not on filedocumented as of this encounter Visit Diagnoses Not on filedocumented in this encounter
--- OUTSIDE RECORDS SUMMARY | 2022-02-22 12:38 | XMS_ITS | Encounter Summary ---
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
--- OUTSIDE RECORDS SUMMARY | 2022-02-22 12:38 | XMS_ITS | Encounter Summary ---
:1985 Author Organization [facility] Address [address] [place] [address] Care Team Providers Name Role Phone Unavailable Primary Care Provider Unavailable Encounter Details Date Type Department Care Team Description 11/16/2015 Hospital Encounter HX [facility] Jeronimo Dyer M.D. 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 Takes 4 tablet (2,000mg total) by mouth as needed for headaches documented as of this encounter Plan of Treatment Not on filedocumented as of this encounter Procedures Procedure Name Priority Date/Time Associated Diagnosis Comme nts BHCG (BETA-HUMAN Routine 11/16/2015 12:56 PM Resu lts for this CHORIONIC CDT procedure are i n GONADOTROPIN), the results GABRIEL, S section. documented in this encounter Results (ABNORMAL) bHCG (Beta-Human Chorionic Gonadotropin), Quantitative (11/16/2015 12:56 PM CDT) Analysis Performed At Patho logist Time Signature Beta-HCG, 2111.0 (H) <=4.9 [facility] POWERCHART Quantitative, S Comment: Quin- and postmenopausal female s >40 years of age may have detectable hCG concentrations (<14 IU/L) due to pituita ry production of hCG. Specimen (Source) Anatomical Collection Method Collection Time Re ceived Time Location / / Volume Laterality Blood 11/16/2015 12:56 PM CDT Jeronimo Dyer M.D. LAB BLOOD ADD-ON Performing Organization Address City/State/ZIP Code Phon e Number POWERCHART documented in this encounter Visit Diagnoses Not on filedocumented in this encounter
--- OUTSIDE RECORDS SUMMARY | 2022-02-22 12:38 | XMS_ITS | Encounter Summary ---
:1985 Author Organization [facility] Address [address] [place] [address] Care Team Providers Name Role Phone Unavailable Primary Care Provider Unavailable Encounter Details Date Type Department Care Team Description 09/16/2015 - Hospital Encounter HX [facility] 2D DarrenAung marques sakshihelena 09/23/2015 Pippa Monterroso, Ph.D. 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 Pulse 72 09/23/2015 7:48 AM Value from [employer]. FLATWORK CATCHER Temperature - - Respiratory Rate 18 09/22/2015 8:16 PM Value from C [employer]. FLATWORK CATCHER Oxygen Saturation - - Inhaled Oxygen - - Concentration Weight 57.5 kg (126 lb 12.2 09/17/2015 10:24 oz) PM FLATWORK CATCHER Height 159 cm (5' 2.6) 09/17/2015 10:24 PM FLATWORK CATCHER Body Mass Index 22.74 09/17/2015 10:24 PM FLATWORK CATCHER documented in this encounter Plan of Treatment Not on filedocumented as of this encounter Procedures Procedure Name Priority Date/Time Associated Comments Diagnosis HUMAN CHORIONIC Routine 09/16/2015 9:00 AM Result s for this GONADOTROPIN (HCG), FLATWORK CATCHER procedur e are in GABRIEL, the results section. LAMOTRIGINE LEVEL, S Routine 09/16/2015 6:43 AM R esults for this FLATWORK CATCHER procedure are i n the results section. documented in this encounter Results hCG (Human Chorionic Gonadotropin), Quantitative, (09/16/2015 9:00 AM FLATWORK CATCHER) Patholo gist Method Time Signature HCG, <0.5 <5.0 [facility] Quantitative, Negative; LABORATORIES - , S 5.0-25.0 [facility] [place] e; >25.0 Positive IU/L Specimen Anatomical Collection Method Collection Time Receive d Time (Source) Location / / Volume Laterality 09/16/2015 9:00 AM 6 9:00 FLATWORK CATCHER AM FLATWORK CATCHER Tara Bernabe APRN, C.N.P., M.S. LAB BLOOD ADD-ON Performing Organization Address City/State/ZIP Code Phon e Number [facility] - [address] [place], [place] [address] [facility] Lamotrigine Level (09/16/2015 6:43 AM FLATWORK CATCHER) athologist Signature Lamotrigine, S 2.5 2.5 - 15.0 [facility] MCG/ML LABORATORIES - [facility] Specimen Anatomical Collection Method Collection Time Receive d Time (Source) Location / / Volume Laterality 09/16/2015 6:43 AM 6 6:43 FLATWORK CATCHER AM FLATWORK CATCHER Erick Luong M.D., Ph.D. LAB BLOOD NON ADD-ON Performing Organization Address City/State/ZIP Code Phon e Number [facility] - [address] [place], [place] [address] [facility] documented in this encounter Visit Diagnoses Not on filedocumented in this encounter
--- OUTSIDE RECORDS SUMMARY | 2022-02-22 12:38 | XMS_ITS | Encounter Summary ---
:1985 Author Organization [facility] Address [address] [place] [address] Care Team Providers Name Role Phone Unavailable Primary Care Provider Unavailable Encounter Details Date Type Department Care Team Description 11/03/2015 Hospital Encounter HX NO MAPPING Bernarda Trevino AP RN, SOFTWARE INTEGRATION DEVELOPER, M.S. 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
--- OUTSIDE RECORDS SUMMARY | 2022-02-22 12:38 | XMS_ITS | Encounter Summary ---
:1985 Author Organization [facility] Address [address] [place] [address] Care Team Providers Name Role Phone Unavailable Primary Care Provider Unavailable Encounter Details Date Type Department Care Team Description 11/21/2015 Hospital Encounter HX NO MAPPING Parris Stone P.A. Social History Tobacco Use Types Packs/Day Years [...] or relatives? How often do you attend episcopal or 1 to 4 times per year 05/18 christianity services? 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
--- OUTSIDE RECORDS SUMMARY | 2022-02-22 12:38 | XMS_ITS | Encounter Summary ---
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 DIAGNOSTIC IMAGING PROCEDURES documented in this encounter Visit Diagnoses Not on filedocumented in this encounter
--- OUTSIDE RECORDS SUMMARY | 2022-02-22 12:38 | XMS_ITS | Encounter Summary ---
:1985 Author Organization [facility] Address [address] [place] [address] Care Team Providers Name Role Phone Unavailable Primary Care Provider Unavailable Encounter Details Date Type Department Care Team Description 11/13/2015 Hospital Encounter [facility] Dylon Glover M.D. 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 documented as of this encounter Last Filed Vital Signs Vital Sign Reading Time Taken Comments Blood Pressure - - Pulse - - Temperature - - Respiratory Rate - - Oxygen Saturation - - Inhaled Oxygen Concentration - - Weight - - Height 163 cm (5' 4.17) 11/13/2015 11:03 AM CDT Body Mass Index - - documented in this encounter Plan of Treatment Not on filedocumented as of this encounter Procedures Procedure Name Priority Date/Time Associated Diagnosis Comme nts BHCG (BETA-HUMAN Routine 11/13/2015 11:10 AM Resu lts for this CHORIONIC CDT procedure are i n GONADOTROPIN), the results GABRIEL, S section. documented in this encounter Results (ABNORMAL) bHCG (Beta-Human Chorionic Gonadotropin), Quantitative (11/13/2015 11:10 AM CDT) Analysis Performed At Patho logist Time Signature Beta-HCG, 2268.0 (H) <=4.9 IUL POWERCHART Quantitative, S Comment: Quin- and postmenopausal female s >40 years of age may have detectable hCG concentrations (<14 IU/L) due to pituita ry production of hCG. Specimen (Source) Anatomical Collection Method Collection Time Re ceived Time Location / / Volume Laterality Blood 11/13/2015 11:10 AM CDT Fortunato Glover M.D. LAB BLOOD ADD-ON Performing Organization Address City/State/ZIP Code Phon e Number POWERCHART documented in this encounter Visit Diagnoses Not on filedocumented in this encounter
--- OUTSIDE RECORDS SUMMARY | 2022-02-22 12:38 | XMS_ITS | Encounter Summary ---
:1985 Author Organization [facility] Address [address] [place] [address] Care Team Providers Name Role Phone Unavailable Primary Care Provider Unavailable Encounter Details Date Type Department Care Team Description 11/06/2015 Hospital Encounter [facility]X [facility] Amanda Bryant M.D. 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 documented in this encounter Results US OB Transvaginal (11/06/2015 3:47 PM CDT) Anatomical Region Laterality Modality Ultrasound Specimen (Source) Anatomical Collection Method Collection Time Re ceived Time Location / / Volume Laterality 11/06/2015 3:47 PM CDT Addenda Addendum by Provider, Pippa Yeung 11/06/2015 3:47 PM CDT RAD^^^OW US OB Transvaginal 11/06/2015 15:47:09 Impressions 11/09/2015 8:16 AM CDT 1. Suspected right ectopic . Cl inical correlation is recommended. [facility] in [place] HYDRAULIC GOVERNOR ASSEMBLER Dept. [phone] Narrative 11/09/2015 8:16 AM CDT EXAM: US OB Transvaginal INDICATION: pain, r/o ectopic; HCG 1704; history of ectopic REFERRING PHYSICIAN: Dr. Glover COMPARISON: None LMP: 10/26/2015 HAJA by LMP: 08/01/2016 : 5 ?? PARA: 2 NUMBER: No intrauterine identified YOLK SAC: Appears adjacent to right ovar y in gestational sac GESTATIONAL SAC = appears adjacent to ri ght ovary CARDIAC ACTIVITY: None RIGHT OVARY: ??4.2 x 3.0 x 2.6 cm with l ikely gestational sac and yolk sac adjacent to this ovary LEFT OVARY: ??3.2 x 2.1 x 4.1 cm UTERUS: Appears within normal limits. No intrauterine gestational sac identified ENDOMETRIUM: 7.2 mm UTERINE POSITION: Anteverted. CUL DE SAC: Normal. No free fluid ADNEXA: Visually normal, no adnexal mass es detected. VIDEO SPECIALIST: Mirian CARRILLO. Procedure Note Antonina Majano M.D. / Provider, Maicol wang M.D. - 11/18/2016 EXAM: US OB Transvaginal INDICATION: pain, r/o ectopic; HCG 1704; history of ectopic REFERRING PHYSICIAN: Dr. Glover COMPARISON: None LMP: 10/26/2015 HAJA by LMP: 08/01/2016 : 5 PARA: 2 NUMBER: No intrauterine identified YOLK SAC: Appears adjacent to right ovar y in gestational sac GESTATIONAL SAC = appears adjacent to ri ght ovary CARDIAC ACTIVITY: None RIGHT OVARY: 4.2 x 3.0 x 2.6 cm with lik mick gestational sac and yolk sac adjacent to this ovary LEFT OVARY: 3.2 x 2.1 x 4.1 cm UTERUS: Appears within normal limits. No intrauterine gestational sac identified ENDOMETRIUM: 7.2 mm UTERINE POSITION: Anteverted. CUL DE SAC: Normal. No free fluid ADNEXA: Visually normal, no adnexal mass es detected. VIDEO SPECIALIST: Mirian CARRILLO. IMPRESSION: 1. Suspected right ectopic . Cl inical correlation is recommended. [facility] in [place] HYDRAULIC GOVERNOR ASSEMBLER Dept. [phone] Mirian Xavier R.V.T., AprilMFlexSFlex IMG OB US PROCEDURE S documented in this encounter Visit Diagnoses Not on filedocumented in this encounter
--- OUTSIDE RECORDS SUMMARY | 2022-02-22 12:38 | XMS_ITS | Encounter Summary ---
:1985 Author Organization [facility] Address [address] [place] [address] Care Team Providers Name Role Phone Unavailable Primary Care Provider Unavailable Encounter Details Date Type Department Care Team Description 09/22/2016 Hospital Encounter [facility] Enoc Pickering M.D. 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 - 09/22/2016 7:24 PM CST [id number] Patient presents with her kids. They have had ear infections and coughs. She has been complaining ofright ear pain. No risk of . We reviewed her medication. We reviewed her allergies. VITAL SIGNS Per EMR. PHYSICAL EXAMINATION ENT: Right TM does show a mild amount of inflammation. Left TM is negative. No sinus tenderness. Throat is negative. No adenopathy in the neck. LUNGS: Clear to auscultation. IMPRESSION/REPORT/PLAN Right otitis media. PLAN: Amoxicillin and symptomatic care. Contact their primary if this should worsen or not improve. Because of the late hour it was sent to a different pharmacy because her other pharmacy was dosed. Symptomatic care including Tylenol was recommended as well. Sid Pickering M.D./cathy Electronically Signed By: SID PICKERING MD On: 09/28/2016 11:25 AM Source: [facility] MHSDOLRCYNMARIA DE JESUS Document Id: [id number] documented in this encounter Miscellaneous Notes Miscellaneous - Sid Pickering M.D. - 09/22/2016 7:36 PM CST Ambulatory Patient Summary [facility] [address] [place], [place] [id number] Visit Information Name: [address] [facility] Number: [id number] Current Date: 09/22/2016 19:36:21 Physicians Attending Provider: UNKNOWN1, PROVIDER Primary Care Provider: ANUPAM BOONE MD PREET [...] the Following Medications: Medication list as of 09-22-16 19:36 Attention: If you have any medications at home that are not on this list, DO NOT take them until youcontact your provider for clarification. Give a copy of your medication list to your primary care provider. Update your medication list any time medications or doses are changed and carry your medication list at all times in case of emergency. Electronically Signed By: SID PICKERING MD Signed On:22-SEP-2016 19:36:17 Your Allergies & Intolerances Substance Reaction Symptoms [...] if you dont have one. Go to [email or web address] and click on Create Your Account. Then, follow the directions to complete the online form. Youll be asked for your [facility] number which you can find at the top of this document. Your Goals/Additional instructions: Source: [facility] POWERCHART Document Id: [id number] L CLEANER Miscellaneous - Sid Pickering M.D. - 09/22/2016 7:36 PM CST Ambulatory Discharge Medication List [address] [id number] Visit Information Name: [facility]K [facility] Number: [id number] Current Date: 09/22/2016 19:36:20 Attending Provider: UNKNOWN1, PROVIDER Primary Care Provider: ANUPAM BOONE MD PREET [...] the Following Medications: Medication list as of 09-22-16 19:36 Attention: If you have any medications at home that are not on this list, DO NOT take them until youcontact your provider for clarification. Give a copy of your medication list to your primary care provider. Update your medication list any time medications or doses are changed and carry your medication list at all times in case of emergency. Electronically Signed By: SID PICKERING MD Signed On:22-SEP-2016 19:36:17 Additional Information: Source: [facility] POWERCHART Document Id: [id number] L CLEANER Miscellaneous - Benjamin Miles L.P.N. - 09/22/2016 7:31 PM CST Adult Retail Security Professional Intake/History Adult Retail Security Professional Intake/History Entered On: 09/22/2016 19:33 STILL CLEANER Performed On: 09/22/2016 19:31 STILL CLEANER by BENJAMIN MILES LPN Intake Chief Complaint : check ears Temperature Oral : 35.7 DegC(Converted to: 96.3 DegF) (LOW) Peripheral Pulse Rate : 72 /min Systolic Blood Pressure : 119 mmHg Diastolic Blood Pressure : 70 mmHg NIBP Mean : 86 mmHg BP Location : Right upper extremity Blood Pressure Cuff Size : Regular SpO2 : 100 % Height : 163 cm(Converted to: 5 ft 4 inch(es), 64 inch(es)) Actual Weight : 60.9 kg(Converted to: 134 lb 4 oz) Dosing Weight Clinic : 60.9 kg Clinic BSA : 1.66 Body Mass Index : 22.92 kg/m2 BENJAMIN MILES LPN - 09/22/2016 19:31 STILL CLEANER General Info Information Given By : Patient Preferred Communication Mode : Verbal Languages : Persian Is Patient Female and 13-50 no hysterectomy : Yes Status : Patient denies Are you ? : No BENJAMIN MILES LPN - 09/22/2016 19:31 STILL CLEANER Subjective Pain Symptoms : Yes BENJAMIN MILES LPN 09/22/2016 19:31 STILL CLEANER Pain Scale Pain Scale Verbal 0-10 : Open BENJAMIN MILES LPN - 09/22/2016 19:31 STILL CLEANER Pain Pain Assessment Grid Pain 1 Location : Ear BENJAMIN MILES LPN 09/22/2016 19:31 STILL CLEANER Dependent Habits Exposure to Tobacco Smoke : Patient smokes Smoking Status : Current every day smoker Tobacco 2A : Yes Tobacco Use/Currently Using : Yes Tobacco Use/Last 30 Days : Yes Tobacco Use/Last 12 months : Yes Type : Cigarettes: Less than 20 per day Tobacco Use/Advised to Quit : Yes BENJAMIN MILES LPN 09/22/2016 19:31 STILL CLEANER Caffeine Use Grid Caffeine Use : Current Type : Coffee, Soft drinks Frequency : Daily Amount : 2 pots BENJAMIN MILES LPN - 09/22/2016 19:31 STILL CLEANER Recreational Drug Use Grid Drug Use : None BENJAMIN MILES LPN 09/22/2016 19:31 STILL CLEANER Source: [facility] Ischemia CareCHART Document Id: [id number] STILL CLEANER!49 L CLEANER documented in this encounter Plan of Treatment Not on filedocumented as of this encounter Visit Diagnoses Not on filedocumented in this encounter
--- OUTSIDE RECORDS SUMMARY | 2022-02-22 12:38 | XMS_ITS | Encounter Summary ---
:1985 Author Organization [facility] Address [address] [place] [address] Care Team Providers Name Role Phone Unavailable Primary Care Provider Unavailable Encounter Details Date Type Department Care Team Description 02/02/2017 Hospital Encounter HX [facility] Jenifer Joyce M.D. Carns, Bhavini H, M.D. [address] [place] [address] Social History Tobacco Use Types Packs/Day Years [...] 1 to 4 times per year 05/18 gnosticism services? 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 documented as of this encounter Last Filed Vital Signs Vital Sign Reading Time Taken Comments Blood Pressure - - Pulse - - Temperature - - Respiratory Rate - - Oxygen Saturation - - Inhaled Oxygen Concentration - - Weight - - Height 163 cm (5' 4.17) 02/02/2017 11:51 AM CDT Body Mass Index - - [...] Miscellaneous - Conversion, Historical Provider Ser - 02/02/2017 11:59 PM CDT Coding Summary-Paper Based CODING DATE: 02/08/2017 FINAL MA [facility] STATUS: * Discharged to Home or Self Care PAYOR: Medicaid ADMIT DX: REASON FOR VISIT DX: FINAL DX: PRINCIPAL: 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 However, the narrative phrase printed from the coding software may appear abbreviated, or result in slightly different terminology. Coded By: WAQAS NEWTON Date Saved: 02/08/2017 12:47 pm [facility] Software Document Id: [id number] documented in this encounter Plan of Treatment Not on filedocumented as of this encounter Procedures Procedure Name Priority Date/Time Associated Comments Diagnosis AUTOMATED DIFFERENTIAL, Routine 02/02/2017 12:23 Results for this B PM CDT procedure are i n the results section. IRON AND TOT Routine 02/02/2017 12:23 Results for this IRON-BINDING CAPACITY, PM CDT proce dure are in S/P the results section. SEDIMENTATION RATE, B Routine 02/02/2017 12:23 Re sults for this PM CDT procedure are i n the results section. CBC WITH DIFFERENTIAL, B Routine 02/02/2017 12:23 Results for this PM CDT procedure are i n the results section. ALANINE AMINOTRANSFERASE Routine 02/02/2017 12:23 Results for this (ALT), S/P PM CDT procedure are i n the results section. ASPARTATE Routine 02/02/2017 12:23 Results for this AMINOTRANSFERASE (AST), PM CDT proc edure are in S/P the results section. SODIUM, S/P Routine 02/02/2017 12:23 Results for this PM CDT procedure are i n the results section. PROTEIN, TOTAL, S/P Routine 02/02/2017 12:23 Resu lts for this PM CDT procedure are i n the results section. POTASSIUM, S/P Routine 02/02/2017 12:23 Results f or this PM CDT procedure are i n the results section. PHOSPHORUS (INORGANIC), Routine 02/02/2017 12:23 Results for this S PM CDT procedure are i n the results section. MAGNESIUM, S Routine 02/02/2017 12:23 Results for this PM CDT procedure are i n the results section. GLUCOSE, FASTING, S/P Routine 02/02/2017 12:23 Re sults for this PM CDT procedure are i n the results section. FERRITIN, S Routine 02/02/2017 12:23 Results for this PM CDT procedure are i n the results section. CREATININE WITH EGFR, Routine 02/02/2017 12:23 Re sults for this S/P PM CDT procedure are i n the results section. CALCIUM, TOT, S/P Routine 02/02/2017 12:23 Result s for this PM CDT procedure are i n the results section. documented in this encounter Results Protein, Total (02/02/2017 12:23 PM CDT) P athologist Signature Total Protein, 7.3 6.3 - 7.9 POWERCHART S GDL Specimen Anatomical Collection Method Collection Time Receive d Time (Source) Location / / Volume Laterality Blood 02/02/2017 12:23 02/02/2017 PM CDT 12:38 PM CDT Cody Joyce M.D. LAB BLOOD ADD-ON Performing Organization Address City/[facility]/ZIP Code Phon e Number POWERCHART POWERCHART NA Ferritin (02/02/2017 12:23 PM CDT) P athologist Signature Ferritin, S 33 13 - 150 POWERCHART NGML Comment: Men 20-60 yrs 30-400 ng/mL Reference values have not been establish ed for men <20 or >60 years of age. Women 17-60 yrs 13-150 ng/mL Reference values have not been establish ed for women <17 or >60 years of age Biotin has been identified by the fadia bravo as a potential interfering substance. Higher concentrations of biotin may be found in multivitamins, hair/nail supplements, and workout supplements. If the result does not match clinical observat ions, repeat testing after patient refrains from the use of supplements for at least 12 hours. Specimen (Source) Anatomical Collection Method Collection Time Re ceived Time Location / / Volume Laterality Blood 02/02/2017 12:23 PM CDT Cody Joyce M.D. LAB BLOOD ADD-ON Performing Organization Address [facility]/ZIP Code Phon e Number POWERCHART POWERCHART NA Automated Differential (02/02/2017 12:23 PM CDT) P athologist Signature Absolute 3.87 1.70 - POWERCHART Neutrophils 7.00 109L Lymphocytes 2.34 0.90 - POWERCHART 2.90 X109L Monocytes 0.71 0.30 - POWERCHART 0.90 X109L Eosinophils 0.11 0.05 - POWERCHART 0.50 X109L Absolute 0.02 0.00 - POWERCHART Basophil 0.30 X109L Specimen Anatomical Collection Method Collection Time Receive d Time (Source) Location / / Volume Laterality Blood 02/02/2017 12:23 02/02/2017 PM CDT 12:23 PM CDT Cody Joyce M.D. LAB BLOOD ADD-ON Performing Organization Address City/State/ZIP Code Phon e Number POWERCHART POWERCHART NA (ABNORMAL) CBC with Differential (02/02/2017 12:23 PM CDT) [facility] Time Signature Leukocytes 7.0 3.5 - 10.5 POWERCHART X109L Erythrocytes 5.09 (H) 3.90 - POWERCHART 5.03 [id number] Hemoglobin 14.7 12.0 - POWERCHART 15.5 GDL Hematocrit 44.7 (H) 34.9 - POWERCHART 44.5 MCV 87.8 81.6 - POWERCHART 98.3 FL HX RDW 13.6 11.9 - POWERCHART 15.5 Platelet Count 255 150 - 450 POWERCHART X109L HXDifferential? Auto POWERCHART Specimen (Source) Anatomical Collection Method Collection Time Re ceived Time Location / / Volume Laterality Blood 02/02/2017 12:23 PM CDT Cody Joyce M.D. LAB BLOOD ADD-ON Performing Organization Address [facility] Phon e Number POWERCHART POWERCHART NA Sedimentation Rate (02/02/2017 12:23 PM CDT) Analysis Performed At [facility] logist Time Signature Sedimentation 9 0 - 29 POWERCHART Rate, B MMHR Specimen (Source) Anatomical Collection Method Collection Time Re ceived Time Location / / Volume Laterality Blood 02/02/2017 12:23 PM CDT Cody Joyce M.D. LAB BLOOD ADD-ON Performing Organization Address [facility] Code Phon e Number POWERCHART POWERCHART NA Iron and Total Iron-Binding Capacity (02/02/2017 12:23 PM CDT) athologist Signature Iron 75 37 - 145 POWERCHART MCGDL Total Iron 349 250 - 400 POWERCHART Binding Capacity MCGDL Percent 21 14 - 50 POWERCHART Saturation Specimen (Source) Anatomical Collection Method Collection Time Re ceived Time Location / / Volume Laterality Blood 02/02/2017 12:23 PM CDT Cody Joyce M.D. LAB BLOOD ADD-ON Performing Organization Address City/[facility] Code Phon e Number POWERCHART POWERCHART NA Magnesium (02/02/2017 12:23 PM CDT) P athologist Signature Magnesium, S 2.1 1.7 - 2.3 POWERCHART MGDL Specimen (Source) Anatomical Collection Method Collection Time Re ceived Time Location / / Volume Laterality Blood 02/02/2017 12:23 PM CDT Cody Joyce M.D. LAB BLOOD ADD-ON Performing Organization Address City/State/ZIP Code Phon e Number POWERCHART POWERCHART NA Phosphorus Inorganic (02/02/2017 12:23 PM CDT) P athologist Signature Phosphorus 4.0 2.5 - 4.5 POWERCHART (Inorganic), S MGDL Specimen (Source) Anatomical Collection Method Collection Time Re ceived Time Location / / Volume Laterality Blood 02/02/2017 12:23 PM CDT Cody Joyce M.D. LAB BLOOD ADD-ON Performing Organization Address City/[facility]/ZIP Code Phon e Number POWERCHART POWERCHART NA Potassium, S (02/02/2017 12:23 PM CDT) P athologist Signature Potassium, S 5.0 3.5 - 5.1 POWERCHART MMOLL Specimen (Source) Anatomical Collection Method Collection Time Re ceived Time Location / / Volume Laterality Blood 02/02/2017 12:23 PM CDT Cody Joyce M.D. LAB BLOOD ADD-ON Performing Organization Address City/[facility]/ZIP Code Phon e Number POWERCHART POWERCHART NA Sodium (02/02/2017 12:23 PM CDT) P athologist Signature Sodium, S 142 135 - 145 POWERCHART MMOLL Specimen (Source) Anatomical Collection Method Collection Time Re ceived Time Location / / Volume Laterality Blood 02/02/2017 12:23 PM CDT Cody Joyce M.D. LAB BLOOD ADD-ON Performing Organization Address City/State/ZIP Code Phon e Number POWERCHART POWERCHART NA Glucose, Fasting (02/02/2017 12:23 PM CDT) P athologist Signature Glucose, 85 70 - 99 POWERCHART Fasting, S MGDL Specimen (Source) Anatomical Collection Method Collection Time Re ceived Time Location / / Volume Laterality Blood 02/02/2017 12:23 PM CDT Cody Joyce M.D. LAB BLOOD NON ADD-ON Performing Organization Address City/State/ZIP Code Phon e Number POWERCHART POWERCHART NA Creatinine with Estimated GFR (MDRD) (02/02/2017 12:23 PM CDT) P athologist Signature Creatinine, S 0.7 0.6 - 1.1 POWERCHART MGDL HXeGFR (MDRD) >60.0 >=60.0 POWERCHART MLMINSA Comment: Results are in mL/min/1.73m squared CKD Stage I: GFR > 90 CKD Stage II: GFR 60 to 89 CKD Stage III: GFR 30 to 59 CKD Stage IV: GFR 15 to 29 CKD Stage V: GFR < 15 or Dialysis eGFR Black/ >60 >=60 MLMINSA POWERCHART Specimen (Source) Anatomical Collection Method Collection Time Re ceived Time Location / / Volume Laterality Blood 02/02/2017 12:23 PM CDT Cody Joyce M.D. LAB BLOOD ADD-ON Performing Organization Address City/[facility]/ZIP Code Phon e Number POWERCHART POWERCHART NA Calcium, Total (02/02/2017 12:23 PM CDT) P athologist Signature Calcium, Total, 10.3 8.6 - 10.3 POWERCHART S MGDL Specimen (Source) Anatomical Collection Method Collection Time Re ceived Time Location / / Volume Laterality Blood 02/02/2017 12:23 PM CDT Cody Joyce M.D. LAB BLOOD ADD-ON Performing Organization Address City/State/ZIP Code Phon e Number POWERCHART POWERCHART NA ALT (Alanine Aminotransferase) (02/02/2017 12:23 PM CDT) P athologist Signature Alanine 28 7 - 45 UL POWERCHART Amniotransferas e, LD Specimen (Source) Anatomical Collection Method Collection Time Re ceived Time Location / / Volume Laterality Blood 02/02/2017 12:23 PM CDT Cody Joyce M.D. LAB BLOOD ADD-ON Performing Organization Address City/State/ZIP Code Phon e Number POWERCHART POWERCHART NA AST (Aspartate Aminotransferase) (02/02/2017 12:23 PM CDT) Patholo gist Method Time Signature Aspartate 29 8 - 43 UL POWERCHART Aminotransferase (AST), S Specimen (Source) Anatomical Collection Method Collection Time Re ceived Time Location / / Volume Laterality Blood 02/02/2017 12:23 PM CDT Cody Joyce M.D. LAB BLOOD ADD-ON Performing Organization Address City/State/ZIP Code Phon e Number POWERCHART POWERCHART NA documented in this encounter Visit Diagnoses Not on filedocumented in this encounter
--- OUTSIDE RECORDS SUMMARY | 2022-02-22 12:38 | XMS_ITS | Encounter Summary ---
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 - 11/10/2015 4:46 PM CDT right ectopic From: ANTONINA LIM MD To: JENA DA SILVA MD; Sent: 11/10/2015 16:46:49 CDT Subject: right ectopic Notified pt of HCG level from today. Discussed that it did increase however, this is not uncommon. We need to repeat HCG level on 11/12 to determine if subsequent dose of methotrexate will be needed or not. The patient was napping when I initially called. Last took tylenol last evening. No pain medications today. Discussed OTC pain medication use. Patient verbalized understanding. Will notify pt of HCG lab on Monday. 11/06/15 usn - right ectopic methotrexate given HCG 1704 11/10/15 HCG 2585 11/13/15 - pending HCG lab draw AT Source: [facility] POWERCHART Document Id: [id number] Electronically signed by Kemal [facility] Licensing Officer [id number] at 12/10/2016 11:42 AM CDT documented in this encounter Plan of Treatment Not on filedocumented as of this encounter Procedures Procedure Name Priority Date/Time Associated Diagnosis Comme nts BHCG (BETA-HUMAN Routine 11/10/2015 12:27 PM Resu lts for this CHORIONIC CDT procedure are i n GONADOTROPIN), the results GABRIEL, S section. documented in this encounter Results (ABNORMAL) bHCG (Beta-Human Chorionic Gonadotropin), Quantitative (11/10/2015 12:27 PM CDT) Analysis Performed At Patho logist Time Signature Beta-HCG, 2585.0 (H) <=4.9 IUL POWERCHART Quantitative, S Comment: Quin- and postmenopausal female s >40 years of age may have detectable hCG concentrations (<14 IU/L) due to pituita ry production of hCG. Specimen (Source) Anatomical Collection Method Collection Time Re ceived Time Location / / Volume Laterality Blood 11/10/2015 12:27 PM CDT Fortunato Glover M.D. LAB BLOOD ADD-ON Performing Organization Address City/State/ZIP Code Phon e Number POWERCHART documented in this encounter Visit Diagnoses Not on filedocumented in this encounter
--- OUTSIDE RECORDS SUMMARY | 2022-02-22 12:38 | XMS_ITS | Encounter Summary ---
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 documented in this encounter Results MR Shoulder Right without IV Contrast (08/24/2016 11:10 AM COOK APPRENTICE) Anatomical Region Laterality Modality Upper Extremity, Shoulder Right Magnetic Reson ance Specimen (Source) Anatomical Collection Method Collection Time Re ceived Time Location / / Volume Laterality 08/24/2016 11:10 AM COOK APPRENTICE Addenda Addendum by Provider, Pippa Yeung o doris 08/24/2016 11:10 AM COOK APPRENTICE RAD^^^OW MR Shoulder Right w o contrast 08/24/2016 11:10:03 Impressions 08/24/2016 1:06 PM COOK APPRENTICE ?? 1. ??Supraspinatus tendinosis without te ar. 2. Mild subdeltoid/subacromial bursitis. 3. Mild biceps tenosynovitis. FINDINGS: ?? MARROW: No fractures or contusions. CAPSULE: Intact. SYNOVIUM: No glenohumeral joint effusion . GLENOHUMERAL ARTICULAR CARTILAGE: Articu lar cartilage has no defects. GLENOID LABRUM: No tears. LONG HEAD BICEPS TENDON: Mild extracapsu lar biceps tenosynovitis. No tear. ROTATOR CUFF TENDONS: Supraspinatus tend on has moderate tendinosis without tear. Normal subscapularis, infr aspinatus, and teres minor tendons. SUBDELTOID/SUBACROMIAL BURSA: Mild incre ased fluid compatible with bursitis. MUSCLES: No atrophy or edema of rotator cuff or deltoid muscles. ACROMIOCLAVICULAR JOINT: Type II acromio n. ??No hypertrophy. Narrative 08/24/2016 1:06 PM COOK APPRENTICE EXAM: MR Shoulder Right w/o contrast INDICATION: fall on ice, injured rt shou lder, worse limited ROM ?? AGE: 31 years-old COMPARISON: Radiographs 08/10/16 Procedure Note Salas Rawls M.D. / Gamal De La Garza M.D. - 01/02/2017 EXAM: MR Shoulder Right w/o contrast INDICATION: fall on ice, injured rt shou lder, worse limited ROM AGE: 31 years-old COMPARISON: Radiographs 08/10/16 IMPRESSION: 1. Supraspinatus tendinosis without tear . 2. Mild subdeltoid/subacromial bursitis. 3. Mild biceps tenosynovitis. FINDINGS: MARROW: No fractures or contusions. CAPSULE: Intact. SYNOVIUM: No glenohumeral joint effusion . GLENOHUMERAL ARTICULAR CARTILAGE: Articu lar cartilage has no defects. GLENOID LABRUM: No tears. LONG HEAD BICEPS TENDON: Mild extracapsu lar biceps tenosynovitis. No tear. ROTATOR CUFF TENDONS: Supraspinatus tend on has moderate tendinosis without tear. Normal subscapularis, infr aspinatus, and teres minor tendons. SUBDELTOID/SUBACROMIAL BURSA: Mild incre ased fluid compatible with bursitis. MUSCLES: No atrophy or edema of rotator cuff or deltoid muscles. ACROMIOCLAVICULAR JOINT: Type II acromio n. No hypertrophy. Erwin Payne(Linda) JOSEY MRI PROCEDURES documented in this encounter Visit Diagnoses Not on filedocumented in this encounter
--- OUTSIDE RECORDS SUMMARY | 2022-02-22 12:38 | XMS_ITS | Encounter Summary ---
:1985 Author Organization [facility] Address [address] [place] [address] Care Team Providers Name Role Phone Unavailable Primary Care Provider Unavailable Encounter Details Date Type Department Care Team Description 04/13/2015 Hospital Encounter HX [facility] FAMILYPRA Pedro Edmonds, SPENSER, C.N.P. 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 - 04/13/2015 10:57 AM CDT [id number] CHIEF COMPLAINT/REASON FOR VISIT Seizure disorder. HISTORY OF PRESENT ILLNESS Preet is a 30-year-old woman, states that she is here for updated treatment plan. There was discussion about general physical exam. She was to be seen by Dr. Abram Boone. Has been evaluated preoperatively due to her repair on her lip. Her primary issue, however, is safety and her seizures. She is a single parent. States that the father of her children checks on her 2 times a day. Since she had a seizure working at [employer], she has been unable to work. She has had surgical repair of her upper lip. She has a new at home delivered this spring. She states she has a 2-year-old at home that has been trained to over to the neighbor's when she has a seizure. She does not have a vehicle. She is not currently working. She is at this time seeking assistance [facility]. She states her previous neurologic care was through the [facility] multiple years ago. She used sofya seen in [place]. She has not established care here in Family Medicine. Please see clinical record for details. PAST MEDICAL/SURGICAL HISTORY Tobacco abuse, epilepsy, nephrolithiasis. MEDICATIONS Carbamazepine 200 mg tablets. She takes 2 tablets 2 times a day. Last refill was [facility]. ALLERGIES Vicodin. VITAL SIGNS Per EMR without change. PHYSICAL EXAMINATION GENERAL: Alert, interactive, young woman in no acute distress. Affect and mood are appropriate. No neurologic deficit noted. NEUROLOGIC: Cranial nerves II to XII grossly intact. DIAGNOSTICS Her last lab results December of 2014: Preoperatively her carbamazepine level was therapeutic at 9.5. IMPRESSION/REPORT/PLAN 1. Epilepsy. 2. Disability. 3. At risk for safe parenting. PLAN: I had wondered why Preet had not been seen by neurology. She stated because the wait time is too long here in [place] for the aerodynamic consultant that visits. I said we need to get her over to [place]. She declined because she does not have a car. So she has been willing to wait for an appointmenthere in [place]. Given the circumstances, I feel that that is not going to be appropriate. I will be speaking to coordinators to help assist in finding a way to transport for a visit to [place], andthey will be working on the care plan. Regarding the risk of her children and their safety, she assures me that at this interval she is managing, and the children's father is checking in on her 2 timesdaily. She is not driving. She is not working. She has contacted social worker aide, and we will proceed with her care. Pedro Edmonds A.P.R.N./cathy Electronically Signed By: PEDRO EDMONDS APRN On: 04/16/2015 04:09 PM Source: [facility] MHSDOLBEYNONRADSYS Document Id: [id number] documented in this encounter Nursing Notes Yaw Martinez R.N. - 04/13/2015 5:05 PM CDT Care Coordination Screening Pt was referred to care coordination by PCP for seizure disorder with weekly seizures, not following up with providers. She has 2 children, an infant and a 2 year old. She is not employed and does notdrive. According to PCP she does not have any support. I contacted Preet and suggested she contact [employer] to see if she may be eligible for transportation through [employer]. Also suggestedshe can contact [facility] [employer] for a gas voucher and or transportation. She requested I see if thereare any openings for the neurologist here and per scheduling he is 6 months out. Encouraged to find transportation and then she can be referred to [place] neurology. Pt is not interested in working with a care team coordinator scheduler. Pt expressed no other needs at this time. Pt is not on the [employer] list. Electronically Signed By: YAW MARTINEZ RN On: 04/14/2015 08:00 AM [facility] Document Id: [id number] documented in this encounter Miscellaneous Notes Telephone Encounter - Conversion, Historical Provider Ser - 09/08/2015 10:45 AM CST *Phone Message- [employer] Document Contains Addenda Addendum by ADALI VILLANUEVA LPN on 08 September 2015 11:32:59 REGULATORY ASSOCIATE From: ADALI VILLANUEVA LPN ([facility] 2E Nurse) To: ALPA KILGORE MD; Sent: 09/08/2015 11:32:59 REGULATORY ASSOCIATE Subject: FW: *Phone Message- [employer] Addendum by HAYES QUEEN RN on 08 September 2015 11:27:58 REGULATORY ASSOCIATE From: HAYES QUEEN RN ( [facility] To: [facility] 2E Nurse; Sent: 09/08/2015 11:27:58 REGULATORY ASSOCIATE Subject: FW: *Phone Message- Actif[employer] Pt states she is needing permetherine refill sent to [facility], as she is still having symptoms after treatment. From: DYLAN HIGH ( [facility]; Sent: 09/08/2015 10:45:32 REGULATORY ASSOCIATE Subject: *Phone Message- [employer] Caller is: ( x ) Patient ( ) Mother ( ) Father ( ) Spouse ( ) Daughter ( ) Son ( ) Pharmacy ( ) Other: [phone] Physician: Patient MRN #: Reason for Call: Message: would like a call reguarding med refill, please call [phone] Advice/Action: Source used: ( ) Verbalizes understanding [...] back cell phone number ( ) [facility] Document Id: [id number] Telephone Encounter - Veronique Henson RRicha - 09/07/2015 4:14 PM CST shine// Rx info From: VERONIQUE HENSON RN ( [facility] Sent: 09/07/2015 16:14:46 REGULATORY ASSOCIATE Subject: shine// Rx info Caller is: ( ) Patient ( ) Mother ( ) Father ( ) Spouse ( ) Daughter ( ) Son ( ) Pharmacy ( ) Other: Physician: Shine Patient MRN #: Reason for Call: Message: Bailee. Claytonfrienchauncey Perez calling, looking for a refill of cream for bug bites. B..Rx for Promethrin in EMR w/ 1 refill A. No JORGE LUIS in chart. No chart info given. R. advised to contact Pharm for a refill req if needed Advice/Action: Source used: ( ) Verbalizes understanding [...] back cell phone number ( ) Source: [employer] Document Id: [id number] Electronically signed by [employer], [employer] Senior Data Mining Analyst [id number] at 12/12/2016 11:50 AM CDT Telephone Encounter - Alf Mcgowan - 04/14/2015 11:37 AM CDT Outside Referral [place] Entered by MCGOWAN ALF on 14 April 2015 11:37:38 CDT refer and an appt requested to [facility] neurology The following patient has a Consult to Outside Specialist [place]: order placed. Patient Name: PREET TURK Diagnosis: Epilepsy, Unspecified, without Mention of Intractable Epilepsy,, Unspecified, without Mention of Intractable Epilepsy, Ordering Provider: PEDRO EDMONDS APRN ; Original Order DT/TM: April 14, 2015 10:31:48 CDT ; Order: Consult to Outside Specialist [place] ; Order Details: Referral For: Adult Department: Neurology Reason For Visit: seizures Why Needs cannot be met : NOT FOUND Why Needs cannot be met - FH : NOT FOUND Why Needs cannot be met [facility] - wait time too long [place] Facility : [facility] FH : NOT FOUND Appointment Type: Consult Appointment Type - FH: NOT FOUND Subspecialty Requested: NOT FOUND Appointment Timeline: Urgent (less than 3 days) Schedule with Specific Provider, If Known: NOT FOUND Appointment has been/will be made by: Outside Specialist If yes, When is appointment: NOT FOUND Arc to Process Referral : NOT FOUND Special Instructions: seizures ongoing Reason to be Sent: NOT FOUND Epilepsy NOS, not intractable Source: [employer] Document Id: [id number] Electronically signed by [employer], [employer] Senior Data Mining Analyst [id number] at 12/12/2016 11:50 AM CDT Miscellaneous - Yaw Martinez R.N. - 04/14/2015 8:00 AM CDT Care Coord - Status and Eligibility Care Coord - Status and Eligibility Entered On: 04/14/2015 8:01 CDT Performed On: 04/14/2015 8:00 CDT by YAW MARTINEZ RN Status and Eligibility Dump Grader Lookup : YAW MARTINEZ RN Care Coord Opt Out Date : 04/14/2015 CDT Care Coord Opt Out Reason : Does not feel program is useful/not interested YAW MARTINEZ RN - 04/14/2015 8:00 CDT [facility] Document Id: [id number] CDT!5 Miscellaneous - Pedro Edmonds APRN, R.N. - 04/13/2015 11:45 AM CDT Ambulatory Patient Summary [facility] [address] [place] [id number] Visit Information Name: PREET TURK [facility] Number: [id number] Current Date: 04/13/2015 11:45:20 Physicians Attending Provider: PEDRO EDMONDS APRN Primary Care Provider: ANUPAM BOONE MD PREET [...] Changes/Routing carBAMazepine (carbamazepine 200 mg oral tablet) 2 Tablet(s), Oral, two times a day x 30 day(s) 400mg BID --- with food This is a CHANGE Stop Taking the Following Medications: Medication list as of 09-28-15 11:45 Attention: If you have any medications at home that are not on this list, DO NOT take them until youcontact your provider for clarification. Give a copy of your medication list to your primary care provider. Update your medication list any time medications or doses are changed and carry your medication list at all times in case of emergency. Electronically Signed By: PEDRO EDMONDS APRN Signed On:13-APR-2015 11:44:43 Your Allergies & Intolerances Substance Reaction Symptoms [...] if you dont have one. Go to [email or web address] and click on Create Your Account. Then, follow the directions to complete the online form. Youll be asked for your [facility] number which you can find at the top of this document. Your Goals/Additional instructions: Source: [facility] POWERCHART Document Id: [id number] Miscellaneous - Pedro Edmonds APRN, R.N. - 04/13/2015 11:45 AM CDT Ambulatory Discharge Medication List [facility] [address] [place] [id number] Visit Information Name: PREET TURK [facility] Number: [id number] Visit Date: 04/13/2015 11:45:19 Attending Provider: PEDRO EDMONDS APRN Primary Care Provider: ANUPAM BOONE MD PREET [...] Changes/Routing carBAMazepine (carbamazepine 200 mg oral tablet) 2 Tablet(s), Oral, two times a day x 30 day(s) 400mg BID --- with food This is a CHANGE Stop Taking the Following Medications: Medication list as of 04-13-15 11:45 Attention: If you have any medications at home that are not on this list, DO NOT take them until youcontact your provider for clarification. Give a copy of your medication list to your primary care provider. Update your medication list any time medications or doses are changed and carry your medication list at all times in case of emergency. Electronically Signed By: PEDRO EDMONDS APRN Signed On:13-APR-2015 11:44:43 Additional Information: Source: [facility] POWERCHART Document Id: [id number] Miscellaneous - Tish Keith L.P.N. - 04/13/2015 11:22 AM CDT Health Assessment Health Assessment Entered On: 04/13/2015 11:22 CDT Performed On: 04/13/2015 11:22 CDT by TISH KEITH LPN Health Assessment Complete Health Assessment Complete or Modified : Annual Health Assessment Annual Health Assessment Completed : Yes TISH KEITH LPN - 04/13/2015 11:22 CDT Nutrition Nutrition Risk Factors by History Adult : None Home Diet : Regular TISH KEITH LPN - 04/13/2015 11:22 CDT Functional Current Daily Living Assistance : None TISH KEITH LPN - 04/13/2015 11:22 CDT Dependent Habits Tobacco Use/Currently Using : No Exposure to Tobacco Smoke : Other: former Smoking Status : Former smoker TISH KEITH LPN - 04/13/2015 11:22 CDT Tobacco Use Grid Type : Cigarettes Cigarette Use Packs/Day : 0.4 TISH KEITH LPN - 04/13/2015 11:22 CDT Caffeine Use Grid Caffeine Use : Current Type : Coffee, Soft drinks Frequency : Daily Amount : 2 pots TISH KEITH LPN - 04/13/2015 11:22 CDT Recreational Drug Use Grid Drug Use : None TISH KEITH LPN - 04/13/2015 11:22 CDT Psychosocial Domestic Abuse Concerns : None Behavioral Health Screen/Safety Assmt : No Uatsdin Preference : No Uatsdin Affiliation TISH KEITH LPN - 04/13/2015 11:22 CDT Advance Directive Advanced Directives : No Advance Directive Additional Information : No TISH KEITH LPN - 04/13/2015 11:22 CDT Educ Needs Learning Style Preference Adult Grid Patient : None Family : None TISH KEITH LPN - 04/13/2015 11:22 CDT Source: [employer] Document Id: [id number] CDT!37 Miscellaneous - Tish Keith L.PFlexNFlex - 04/13/2015 11:18 AM CDT 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 Intake/History 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 Intake/History Entered On: 04/13/2015 11:21 CDT Performed On: 04/13/2015 11:18 CDT by TISH KEITH LPN Intake Chief Complaint : Physical LMP Date : 04/03/2015 Temperature Oral : 37 DegC(Converted to: 98.6 DegF) Peripheral Pulse Rate : 78 /min Respiratory Rate : 14 /min Systolic Blood Pressure : 112 mmHg Diastolic Blood Pressure : 74 mmHg NIBP Mean : 87 mmHg Height : 163 cm(Converted to: 5 ft 4 inch(es), 64 inch(es)) Actual Weight : 59 kg(Converted to: 130 lb 1 oz) Dosing Weight Clinic : 59 kg Clinic BSA : 1.63 Body Mass Index : 22.21 kg/m2 TISH KEITH [facility] - 04/13/2015 11:18 CDT General Info Languages : Slovak Is Patient Female and 13-50 no hysterectomy : Yes Status : Patient denies Are you ? : No TISH KEITH [facility] - 04/13/2015 11:18 CDT Subjective Pain Symptoms : Yes TISH KEITH [facility] - 04/13/2015 11:18 CDT Pain Scale Pain Scale Verbal 0-10 : Open TISH KEITH [facility] 04/13/2015 11:18 CDT Pain Pain Assessment Grid Pain 1 Location : Neck Intensity : 6 TISH KEITH [facility] - 04/13/2015 11:18 CDT Dependent Habits Tobacco Use/Currently Using : No Exposure to Tobacco Smoke : Other: former Smoking Status : Former smoker TISH KEITH [facility] - 04/13/2015 11:18 CDT Tobacco Use Grid Type : Cigarettes Cigarette Use Packs/Day : 0.4 TISH KEITH [facility] 04/13/2015 11:18 CDT Caffeine Use Grid Caffeine Use : Current Type : Coffee, Soft drinks Frequency : Daily Amount : 2 pots TISH KEITH [facility] - 04/13/2015 11:18 CDT Recreational Drug Use Grid Drug Use : None TISH KIETH [facility] - 04/13/2015 11:18 CDT Source: [facility] [employer] (acquired by [employer])CHART Document Id: [id number] CDT!46 documented in this encounter Plan of Treatment Not on filedocumented as of this encounter Visit Diagnoses Not on filedocumented in this encounter
--- OUTSIDE RECORDS SUMMARY | 2022-02-22 12:38 | XMS_ITS | Encounter Summary ---
:1985 Author Organization [facility] Address [address] [place] [address] Care Team Providers Name Role Phone Unavailable Primary Care Provider Unavailable Encounter Details Date Type Department Care Team Description 01/08/2015 Hospital Encounter HX [facility] Emelia Amaral M.D. 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 - 01/09/2015 11:38 PM CDT Results Notification Document Contains Addenda Addendum by TROY ECHEVERRIA on 12 January 2015 18:24:10 CDT patient informed From: NATALIE AMARAL MD To: LORI Amaral Nurse; Sent: 01/09/2015 23:38:15 CDT Show up: 01/09/2015 23:38:00 CDT Subject: Results Notification Carbamazepine level is in the therapeutic range. Follow up with Dr. Boone as previously scheduled. Results: Date Result Name Value 01/08/2015 12:52 Carbamaz Lvl-Moy 9.5 mcg/mL 01/08/2015 12:52 Carbamaz Free-Moy 1.7 mcg/mL Source: [facility] POWERCHART Document Id: [id number] Electronically signed by Conversion, [facility] Hotel Breakfast Attendant [id number] at 12/12/2016 10:35 AM CDT Miscellaneous - Natalie Amaral M.D. - 01/08/2015 12:35 PM CDT Ambulatory Patient Summary [facility] [address] [place] [phone] Visit Information Name: PREET TURK [facility] Number: [id number] Current Date: 01/08/2015 12:35:20 Physicians Attending Provider: NATALIE AMARAL MD Primary Care Provider: ANUPAM BOONE MD BURKE PREET Volodymyr has been given the following list of [...] oral tablet) Medication list as of 01-08-15 12:35 Attention: If you have any medications at home that are not on this list, DO NOT take them until youcontact your provider for clarification. Give a copy of your medication list to your primary care provider. Update your medication list any time medications or doses are changed and carry your medication list at all times in case of emergency. 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 Go to [email or web address] and click on Create Your Account. Then, follow the directions to complete the online form. Youll be asked for your [facility] number which you can find at the top of this document. Your Goals/Additional instructions: Source: [facility] POWERCHART Document Id: [id number] Miscellaneous - Natalie Amaral M.D. - 01/08/2015 12:35 PM CDT Ambulatory Discharge Medication List [address] [id number] Visit Information Name: PREET TURK [facility] Number: [id number] Visit Date: 01/08/2015 12:35:19 Attending Provider: NATALIE AMARAL MD Primary Care Provider: ANUPAM BOONE MD [...] oral tablet) Medication list as of 01-08-15 12:35 Attention: If you have any medications at home that are not on this list, DO NOT take them until youcontact your provider for clarification. Give a copy of your medication list to your primary care provider. Update your medication list any time medications or doses are changed and carry your medication list at all times in case of emergency. Electronically Signed By: NATALIE AMARAL MD Signed On:08-JAN-2015 12:35:14 Additional Information: Source: [facility] POWERCHART Document Id: [id number] Miscellaneous - Troy Echeverria L.P.N. 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 Entered On: 01/08/2015 12:13 CDT Performed On: 01/08/2015 12:09 CDT by TROY ECHEVERRIA Intake Chief Complaint : pre-op for Camp on 01-09-2015 Temperature Oral : 36.8 DegC(Converted to: 98.2 DegF) Peripheral Pulse Rate : 66 /min Respiratory Rate : 18 /min Systolic Blood Pressure : 100 mmHg Diastolic Blood Pressure : 64 mmHg NIBP Mean : 76 mmHg BP Location : Right upper extremity Blood Pressure Cuff Size : Regular Height : 163 cm(Converted to: 5 ft 4 inch(es), 64 inch(es)) Actual Weight : 57.6 kg(Converted to: 127 lb 0 oz) Dosing Weight Clinic : 57.6 kg Clinic BSA : 1.61 Body Mass Index : 21.68 kg/m2 TROY ECHEVERRIA - 01/08/2015 12:09 CDT General Info Information Given By : Patient Preferred Communication Mode : Verbal Languages : Jordanian Is Patient Female and 13-50 no hysterectomy : Yes Status : Patient denies Are you ? : No TROY ECHEVERRIA - 01/08/2015 12:09 CDT Subjective Pain Symptoms : Yes TROY ECHEVERRIA 01/08/2015 12:09 CDT Pain Scale Pain Scale Verbal 0-10 : Open TROY ECHEVERRIA 01/08/2015 12:09 CDT Pain Pain Assessment Grid Pain 1 Location : Mouth TROY ECHEVERRIA 01/08/2015 12:09 CDT Dependent Habits Tobacco Use/Currently Using : No Exposure to Tobacco Smoke : Patient smokes Smoking Status : Former smoker TROY ECHEVERRIA 01/08/2015 12:09 CDT Tobacco Use Grid Type : Cigarettes Cigarette Use Packs/Day : 0.4 TROY ECHEVERRIA 01/08/2015 12:09 CDT Caffeine Use Grid Caffeine Use : Current Type : Coffee, Soft drinks Frequency : Daily Amount : 2 pots TROY ECHEVERRIA 01/08/2015 12:09 CDT Recreational Drug Use Grid Drug Use : None TROY ECHEVERRIA 01/08/2015 12:09 CDT Source: [facility] [employer] Document Id: [id number] CDT!48 documented in this encounter Plan of Treatment Not on filedocumented as of this encounter Procedures Procedure Name Priority Date/Time Associated Comments Diagnosis CARBAMAZEPINE LEVEL, Routine 01/08/2015 12:52 Res ults for this TOT AND FR, S PM CDT procedure are in the results section. documented in this encounter Results Carbamazepine Level, Total and Free (01/08/2015 12:52 PM CDT) P athologist Signature Carbamazepine, 9.5 MCGML POWERCHART Tot, S Comment: REFERENCE VALUE------ 4.0 - 12.0 (Toxic > or = 15.0) Test Performed by: [facility] [place] [address] Computational Biologist: Dennis Marquez II, M.D., Ph.D. Carbamazepine, Free, S 1.7 MCGML POWERCH ART Comment: REFERENCE VALUE------ 1.0 - 3.0 (Toxic > or = 4.0) Test Performed by: [facility] [place] [id number] Computational Biologist: Dennis Marquez II, M.D., Ph.D. Specimen (Source) Anatomical Collection Method Collection Time Re ceived Time Location / / Volume Laterality Blood 01/08/2015 12:52 PM CDT Natalie Amaral M.D. LAB BLOOD NON ADD-ON Performing Organization Address City/State/ZIP Code Phon e Number POWERCHART documented in this encounter Visit Diagnoses Not on filedocumented in this encounter
--- OUTSIDE RECORDS SUMMARY | 2022-02-22 12:38 | XMS_ITS | Encounter Summary ---
:1985 Author Organization [facility] Address [address] [place] [address] Care Team Providers Name Role Phone Unavailable Primary Care Provider Unavailable Encounter Details Date Type Department Care Team Description 11/19/2015 Hospital Encounter HX NO MAPPING Jeronimo Dyer M.D. 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
--- OUTSIDE RECORDS SUMMARY | 2022-02-22 12:38 | XMS_ITS | Encounter Summary ---
:1985 Author Organization [facility] Address [address] [place] [address] Care Team Providers Name Role Phone Unavailable Primary Care Provider Unavailable Encounter Details Date Type Department Care Team Description 01/31/2017 Hospital Encounter HX [facility] Jenifer Joyce M.D. Carns, Bhavini H, M.D. 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 Coded By: WAQAS NEWTON Date Saved: 02/09/2017 03:58 pm [facility] POWER[facility] Document Id: [id number] documented in this encounter Plan of Treatment Not on filedocumented as of this encounter Procedures Procedure Name Priority Date/Time Associated Comments Diagnosis MISCELLANEOUS SENT OUT Routine 01/31/2017 9:44 AM Results for this LAB TEST CDT procedure are i n the results section. LAMOTRIGINE LEVEL, S Routine 01/31/2017 9:43 AM R esults for this CDT procedure are i n the results section. documented in this encounter Results Miscellaneous Lab Test Blood (01/31/2017 9:44 AM CDT) Patholo gist Method Time Signature HXTest to be See Comment POWERCHART Ordered Comment: Lacosamide, S HXMisc Result See Comment POWERCHART Comment: Result: 6.1 Unit: mcg/mL Ref. Range: 1.0-10.0 This test was developed and its performa nce characteristics determined by [facility] in a manner consistent with CLIA requirements. This test has not been cleared or approved by the U.S. Food and Drug Administration. HXMisc Reference Lab See Comment POWERCH ART Comment: [facility] [address] [place] [address] HXMisc Reference Lab Test Code LACO POWERCHART HXMisc CPT Code 08141 POWERCHART HXMisc Specimen Source Serum POWERCH ART Specimen (Source) Anatomical Collection Method Collection Time Re ceived Time Location / / Volume Laterality Blood 01/31/2017 9:44 AM CDT Cody Joyce M.D. LAB MISC ORDERABLES Performing Organization Address City/State/ZIP Code Phon e Number POWERCHART POWERCHART NA Lamotrigine Level (01/31/2017 9:43 AM CDT) P athologist Signature Lamotrigine, S 2.7 2.5 - 15.0 POWERCHART MCGML Comment: ADDITIONAL INFORMATIO N This test was developed and its performa nce characteristics determined by [facility] in a manner co nsistent with CLIA requirements. This test has not been carmelo ared or approved by the U.S. Food and Drug Administration. Test Performed by: [facility] [address] [place] [address] Specimen (Source) Anatomical Collection Method Collection Time Re ceived Time Location / / Volume Laterality Blood 01/31/2017 9:43 AM CDT Cody Joyce M.D. LAB BLOOD NON ADD-ON Performing Organization Address City/State/ZIP Code Phon e Number POWERCHART POWERCHART NA documented in this encounter Visit Diagnoses Not on filedocumented in this encounter
--- OUTSIDE RECORDS SUMMARY | 2022-02-22 12:38 | XMS_ITS | Encounter Summary ---
:1985 Author Organization [facility] Address [address] [place] [address] Care Team Providers Name Role Phone Unavailable Primary Care Provider Unavailable Encounter Details Date Type Department Care Team Description 11/16/2015 Hospital Encounter HX [facility] Sandra Nickerson M.D. 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 Takes 4 tablet (2,000mg total) by mouth as needed for headaches documented as of this encounter Progress Notes Sandra Mullins M.D. - 11/16/2015 1:15 PM CDT [id number] CHIEF COMPLAINT/REASON FOR VISIT Right lower quadrant pain and known ectopic . HISTORY OF PRESENT ILLNESS Preet is a 30-year-old, 5, para 3, female whose last menses was approximately 09/20/2015. She was noted to have a right ectopic since November 04 and has been treated with methotrexate, the 2nd dose being on 11/11. In that time her HCG has initially gone from initial value of 1704on 11/05 to 2585 on 11/09, then down to 2268 on 11/12, and today was 2111. She called in earlier today with increasing right lower quadrant pain. She denies dizziness but states that the pain is more so when she is up and around. She describes the pain as 8/10, although she appears to be quite comfortable, walks easily, bends over and moves easily. PHYSICAL EXAMINATION Pulse was 88 beats per minute, blood pressure was noted to be 112/66, corresponding previously with a blood pressure of 120/60. Bimanual examination reveals no discrete rebound guarding or masses. The cervix itself was tender. She was more so tender on the right-hand adnexa. No palpable mass was noted. The left adnexa was not tender. This correlates quite closely with the findings on ultrasound. DIAGNOSTICS It was suggested that the patient obtain an ultrasound, checking for signs of bleeding and we would then approach treatment of this. The patient was then seen after endovaginal ultrasound revealed no evidence of significant levels xwbel-dx-mbp fluid. IMPRESSION/REPORT/PLAN Probable dissolution of from the right tube. At present we discussed the surgical procedure. However, it was stated that the likelihood of losingthe tube would be greater with surgery. She has already received the methotrexate on Monday and I would anticipate that the levels should continue to decline. It was suggested that provided she had suitable pain relief that we could observe and re-evaluate in 3 days. She is quite agreeable to this as she would like to avoid surgery unless absolutely necessary, although she did state that she would also like to avoid another administration dosage of methotrexate as she was quite nauseated and vomiting with the last dose. PLAN: We will repeat the quantitative HCG on and plan an office visit on Monday. A prescription for acetaminophen with codeine #3 was made. She was instructed to stop any other form of acetaminophen and agrees with this. She denies allergies to codiene. Sandra Mullins M.D./cathy Electronically Signed By: SANDRA MULLINS MD On: 11/18/2015 06:51 AM Modified by and Electronically Signed by: SANDRA MULLINS MD On: 11/18/2015 06:50 AM Source: [facility] MHSDOLBEYNONRADSYS Document Id: [id number] documented in this encounter Miscellaneous Notes Miscellaneous - Sandra Mullins M.D. - 11/17/2015 7:31 AM CDT Ambulatory Patient Summary [facility] [address] [place], [place] [phone] Visit Information Name: PREET TURK [facility] Number: [id number] Current Date: 11/17/2015 07:31:48 Physicians Attending Provider: SANDRA MULLINS MD Primary Care Provider: ANUPAM BOONE MD [...] Take Indications/Special Instructions/Comments/Notes for Patient Medication Changes/Routing acetaminophen-codeine (Tylenol with Codeine #3 oral tablet) 1 to 2 tablets, Oral, every 4 hours as needed for Pain No more than 4,000mg acetaminophen/24hrs This is a CHANGE Routed to Printer acetaminophen (Tylenol) Oral PRN ibuprofen (ibuprofen) PRN Stop Taking the Following Medications: Medication list as of 11-17-15 07:31 Attention: If you have any medications at home that are not on this list, DO NOT take them until youcontact your provider for clarification. Give a copy of your medication list to your primary care provider. Update your medication list any time medications or doses are changed and carry your medication list at all times in case of emergency. Electronically Signed By: SANDRA MULLINS MD Signed On:17-NOV-2015 07:31:45 Your Allergies & Intolerances Substance Reaction Symptoms [...] if you dont have one. Go to [email or web address] and click on Create Your Account. Then, follow the directions to complete the online form. Youll be asked for your [facility] number which you can find at the top of this document. Your Goals/Additional instructions: Source: [facility] [employer] Document Id: [id number] Miscellaneous - Sandra Mullins M.D. - 11/17/2015 7:31 AM CDT Ambulatory Discharge Medication List [facility] [address] [place] [id number] Visit Information Name: [address] GUAN [facility] Number: [id number] Visit Date: 11/17/2015 07:31:47 Attending Provider: SANDRA MULLINS MD Primary Care Provider: ANUPAM BOONE MD [...] Take Indications/Special Instructions/Comments/Notes for Patient Medication Changes/Routing acetaminophen-codeine (Tylenol with Codeine #3 oral tablet) 1 to 2 tablets, Oral, every 4 hours as needed for Pain No more than 4,000mg acetaminophen/24hrs This is a CHANGE Routed to Printer acetaminophen (Tylenol) Oral PRN ibuprofen (ibuprofen) PRN Stop Taking the Following Medications: Medication list as of 11-17-15 07:31 Attention: If you have any medications at home that are not on this list, DO NOT take them until youcontact your provider for clarification. Give a copy of your medication list to your primary care provider. Update your medication list any time medications or doses are changed and carry your medication list at all times in case of emergency. Electronically Signed By: SANDRA MULLINS MD Signed On:17-NOV-2015 07:31:45 Additional Information: Source: 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 Intake/History Entered On: 11/16/2015 13:25 CDT Performed On: 11/16/2015 13:20 CDT by ANNE KRISHNAMURTHY LPN Intake Actual Weight : 60.3 kg(Converted to: 132 lb 15 oz) Dosing Weight Clinic : 60.3 kg Clinic BSA : 1.65 Body Mass Index : 22.7 kg/m2 ANNE KRISHNAMURTHY LPN - 11/16/2015 13:26 CDT Chief Complaint : Per Richelle- tubal 7 weeks ago, abdominal pain and bleeding since September 26, 2015 but the past few days have been heavy bleeding Temperature Core : 36.7 DegC(Converted to: 98.1 DegF) Peripheral Pulse Rate : 82 /min Respiratory Rate : 15 /min Systolic Blood Pressure : 112 mmHg Diastolic Blood Pressure : 66 mmHg NIBP Mean : 81 mmHg BP Location : Left upper extremity Blood Pressure Cuff Size : Regular Height : 163 cm(Converted to: 5 ft 4 inch(es), 64 inch(es)) ANNE KRISHNAMURTHY LPN - 11/16/2015 13:20 CDT General Info Information Given By : Patient Preferred Communication Mode : Verbal Languages : Moldovan Is Patient Female and 13-50 no hysterectomy : Yes Status : Confirmed positive Are you ? : No ANNE KRISHNAMURTHY LPN - 11/16/2015 13:20 CDT Subjective Pain Symptoms : Yes ANNE KRISHNAMURTHY LPN - 11/16/2015 13:20 CDT Dependent Habits Exposure to Tobacco Smoke : Other: former Smoking Status : Former smoker Tobacco 2A : Yes Tobacco Use/Currently Using : No Tobacco Use/Last 30 Days : No Tobacco Use/Last 12 months : No ANNE KRISHNAMURTHY LPN - 11/16/2015 13:20 CDT Caffeine Use Grid Caffeine Use : Current Type : Coffee, Soft drinks Frequency : Daily Amount : 2 pots ANNE KRISHNAMURTHY LPN - 11/16/2015 13:20 CDT Recreational Drug Use Grid Drug Use : None ANNE KRISHNAMURTHY LPN - 11/16/2015 13:20 CDT Source: [employer] Document Id: [id number] CDT!6 documented in this encounter Plan of Treatment Not on filedocumented as of this encounter Visit Diagnoses Not on filedocumented in this encounter
--- OUTSIDE RECORDS SUMMARY | 2022-02-22 12:38 | XMS_ITS | Encounter Summary ---
:1985 Author Organization [facility] Address [address] [place] [address] Care Team Providers Name Role Phone Unavailable Primary Care Provider Unavailable Encounter Details Date Type Department Care Team Description 11/19/2015 Hospital Encounter HX NO MAPPING Sari Shultz M.D. [address], [place] [phone] (Wo rk) Social History [...] 1 to 4 times per year 05/18 hindu services? 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 Takes 4 tablet (2,000mg total) by mouth as needed for headaches documented as of this encounter Miscellaneous Notes Telephone Encounter - Conversion, Historical Provider Ser - 11/20/2015 9:02 AM CDT manisha Document Contains Addenda Addendum by YOSI REY LPN on November 20, 2015 09:09:11 CDT From: YOSI REY LPN ( TECHNICAL DIRECTOR Nurse) To: JENA DA SILVA MD; Sent: 11/20/2015 09:09:11 CDT Subject: FW: manisha would like a diff pain med . From: PAULA KNIGHT ( TECHNICAL DIRECTOR Nurse) To: TECHNICAL DIRECTOR Nurse; Sent: 11/20/2015 09:02:39 CDT Subject: manisha Caller is: ( ) Patient ( ) Mother ( ) Father ( ) Spouse ( ) Daughter ( ) Son ( ) Pharmacy ( ) Other: Physician: Manisha Patient MRN #: Reason for Call: Message: Patient had an emerengcy procedure yesterday and is still in a lot of pain. She was perscribed tylenol with codine, and was wondering if there was something else she could take for the pain since she was up all night in pain. Please call her back at [phone]. Thank you. Advice/Action: Source used: ( ) Verbalizes understanding [...] back cell phone number ( ) Source: [facility] [employer] Document Id: [id number] documented in this encounter Plan of Treatment Not on filedocumented as of this encounter Procedures Procedure Name Priority Date/Time Associated Comments Diagnosis US PELVIS TRANSVAGINAL Routine 11/19/2015 1:39 PM Results for this AND TRANSABDOMINAL CDT procedure are in the results section. documented in this encounter Results US Pelvis Transvaginal and Transabdominal (11/19/2015 1:39 PM CDT) Anatomical Region Laterality Modality Pelvis N/A Ultrasound Specimen (Source) Anatomical Collection Method Collection Time Re ceived Time Location / / Volume Laterality 11/19/2015 1:39 PM CDT Addenda Addendum by Provider, Pippa Yeung 11/19/2015 1:39 PM CDT RAD^^^OW US Pelvic And Endovaginal 11/19/2015 13:39:23 Impressions 11/19/2015 2:51 PM CDT 1. New free fluid right adnexa and aroun d uterus. Findings are suggestive of rupture of known right adn exal ectopic . Exam opened at 11/19/2015 2:37 PM. Results discussed with DR. DAWOOD HAYES at 11/19/2015 2:47 PM. Narrative 11/19/2015 2:51 PM CDT EXAM: US Pelvic And Endovaginal INDICATION: vaginal pain (known ectopic on right; worsening pain, continued vaginal bleeding) AGE: 30 years-old COMPARISON: Ultrasound 11/16/15. FINDINGS: No intrauterine is seen. Endom etrium thickness normal 6.7 mm. At site of previously well-defined right ectopic , there is now heterogeneous soft tissue. There is new small free fluid in the right adnexa and around the uterus. The findings are suggestive of ectopic rupture. Right ovary is enlarged with volume 54 m m. Stable 2.7 x 2.6 cm right ovarian corpus luteum cyst. Left ovary appears normal with volume 7 mL. Arteriovenous flow bilateral ovaries is normal without evidence for torsion. Procedure Note Salas Rawls M.D. / Gamal De La Garza M.D. - 11/18/2016 EXAM: US Pelvic And Endovaginal INDICATION: vaginal pain (known ectopic on right; worsening pain, continued vaginal bleeding) AGE: 30 years-old COMPARISON: Ultrasound 11/16/15. FINDINGS: No intrauterine is seen. Endom etrium thickness normal 6.7 mm. At site of previously well-defined right ectopic , there is now heterogeneous soft tissue. There is new small free fluid in the right adnexa and around the uterus. The findings are suggestive of ectopic rupture. Right ovary is enlarged with volume 54 m m. Stable 2.7 x 2.6 cm right ovarian corpus luteum cyst. Left ovary appears normal with volume 7 mL. Arteriovenous flow bilateral ovaries is normal without evidence for torsion. IMPRESSION: 1. New free fluid right adnexa and aroun d uterus. Findings are suggestive of rupture of known right adn exal ectopic . Exam opened at 11/19/2015 2:37 PM. Results discussed with DR. DAWOOD HAYES at 11/19/2015 2:47 PM. Mirian Xavier R.V.T., Jo-Ann IMG US PROCEDURES documented in this encounter Visit Diagnoses Not on filedocumented in this encounter
--- OUTSIDE RECORDS SUMMARY | 2022-02-22 12:38 | XMS_ITS | Encounter Summary ---
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 documented as of this encounter Last Filed Vital Signs Vital Sign Reading Time Taken Comments Blood Pressure 122/81 08/19/2016 3:26 PM INTERNATIONAL TRADE TEACHER Pulse 84 08/19/2016 3:26 PM INTERNATIONAL TRADE TEACHER Temperature - - Respiratory Rate 20 08/19/2016 3:26 PM INTERNATIONAL TRADE TEACHER Oxygen Saturation - - Inhaled Oxygen Concentration - - Weight 63.6 kg (140 lb 3.4 oz) 08/19/2016 3:26 PM INTERNATIONAL TRADE TEACHER Height 163 cm (5' 4.17) 08/19/2016 3:26 PM INTERNATIONAL TRADE TEACHER Body Mass Index 23.94 08/19/2016 3:26 PM INTERNATIONAL TRADE TEACHER documented in this encounter Medications at Time [...] documented as of this encounter Progress Notes Leela Carbone P.A.-C. - 08/19/2016 6:00 PM CST Clinic Full Note CHIEF COMPLAINT/REASON FOR VISIT - shoulder pain/ right - numbness in tips of fingers and generates to the middle of forearm on right side HISTORY OF PRESENT ILLNESS Preet is a 31 year old female presenting for follow up evaluation for right shoulder pain that is worsening. She notes that she fell on the ice 3 weeks ago and tried to grab a railing with her right hand, heard something tear at that time. [facility] and xray was normal. Was given exercises but is having trouble doing them. Pain and range of motion is getting worse, plusnow getting numbness down to forearm. The pain is toward side and back and shoulder, feels that it locks and pops over the top. No neck pain, no head injury. She is alternating tylenol and motrin, tried tramadol and this caused vertigo and vomiting. MEDICATIONS ibuprofen, PRN lamoTRIgine 100 mg oral tablet, 100 mg, 1 tab(s), PO, 2xDay traMADol 50 mg oral tablet, 50 mg, 1 tab(s), PO, q6hr, PRN, 0 refills, * Tylenol, PRN, PO Vimpat 100 mg oral tablet, 100 mg, 1 tab(s), PO, 2xDay * indicates non-compliance ALLERGIES Vicodin (Hives,Breathing) traMADol (Dizziness) PAST MEDICAL HISTORY Chronic Adopted Epilepsy NOS, not intractable Nephrolithiasis NOS Tobacco dependence Historical Exam Exam Preoperative NOS Nephrolithiasis NOS Seizure (SZ) NOS PROCEDURES/SURGICAL HISTORY Cytopathology, cervical or vaginal (any reporting system), collected in preservative fluid, automated thin layer preparation; manual screening under physician supervision.. (04/04/2012). SOCIAL HISTORY Date Time: 08/19/2016 15:33 Tobacco: Smoking Status: Current every day smoker Exposure: Patient smokes Alcohol: Use: No Recreational Drugs: Use: None Type: No Results Found FAMILY HISTORY Mother:Patient Adopted. VITAL SIGNS T: 36.7 ??C (Oral) HR: 84 RR: 20 BP: 122 / 81 HT: 163 cm WT: 63.6 kg BMI: 23.94 PHYSICAL EXAMINATION GEN: well appearing, no acute distress but limited movement to right arm Rt Shoulder: no redness or swelling, Range of motion limited to 30 degrees abduction, some internalrotation, but unable to externally rotate Neurovascular: skin is warm and dry; decreased sensation to light touch over dorsal rt forearm; reflexes intact and symmetrical, strength 3/5 on right, 5/5 on left IMPRESSION/REPORT/PLAN Injury Shoulder Subsequent R suspect rotator cuff injury, obtain MRI and ortho consult next week, sling given but also discussedfrozen shoulder and prevention, continue ibuprofen, ice/heat, also discussed percocet as needed but caution due to side effects Ordered: oxyCODONE-acetaminophen, 1 tab(s), PO, q6hr, PRN Pain, # 20 tab(s), 0 Refill(s), Acute Orders: Consult to Orthopedics MR Shoulder Right w/o contrast Electronically Signed By: LEELA CARBONE PA-C On: 08/21/2016 11:11 PM Source: [facility] [employer] Document Id: [id number] RNATIONAL TRADE TEACHER documented in this encounter Miscellaneous Notes Miscellaneous - Alphonse Stroud L.P.N. - 08/29/2016 8:27 AM CST CSA/Destroy Script Document Contains Addenda Addendum by LIZETH PEREZ RN on August 29, 2016 08:28:10 INTERNATIONAL TRADE TEACHER Rx destroyed. Duplicate Rx. Witnessed Rx destroyed. From: ALPHONSE FRENCH LPN ([place] [id number] Nurse) To: [facility]; Sent: 08/29/2016 08:27:01 INTERNATIONAL TRADE TEACHER ! 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 Prescribed Date _08/19/16 Discarded Date 08/29/16_ Discard witnessed By: Alphonse French LPN _ Forward message to witnessing nurse for cosignature Source: [facility] [email or web address] Document Id: [id number] Electronically signed by Kemal [facility] Plant Safety Leader [id number] at 12/27/2016 12:49 AM CDT Miscellaneous - Leela Carbone P.A.-C. - 08/21/2016 11:12 PM INTERNATIONAL TRADE TEACHER Ambulatory Patient Summary [facility] [address] [place], [place] [phone] Visit Information Name: PREET TURK [facility] Number: [id number] Current Date: 08/21/2016 23:12:08 Physicians Attending Provider: LEELA CARBONE PA-C Primary Care Provider: ANUPAM BOONE MD PREET [...] 1 Tablet(s), Oral, two times a day oxyCODONE-acetaminophen (Percocet 5/325 oral tablet) 1 Tablet(s), Oral, every 6 hours as needed for Pain No more than 4,000mg acetaminophen/24hrs New Routed to Printer Stop Taking the Following Medications: traMADol (traMADol 50 mg oral tablet) Medication list as of 08-21-16 23:12 Attention: If you have any medications at home that are not on this list, DO NOT take them until youcontact your provider for clarification. Give a copy of your medication list to your primary care provider. Update your medication list any time medications or doses are changed and carry your medication list at all times in case of emergency. Electronically Signed By: LEELA CARBONE PA-C Signed On:21-AUG-2016 23:12:03 Your Allergies & Intolerances Substance Reaction Symptoms [...] if you dont have one. Go to [email or web address] and click on Create Your Account. Then, follow the directions to complete the online form. Youll be asked for your [facility] number which you can find at the top of this document. Your Goals/Additional instructions: Source: [facility] POWERCHART Document Id: [id number] RNATIONAL TRADE TEACHER Miscellaneous - Leela Carbone P.A.-C. - 08/21/2016 11:12 PM INTERNATIONAL TRADE TEACHER Ambulatory Discharge Medication List [address] [phone] Visit Information Name: PREET TURK [facility] Number: [phone] Current Date: 08/21/2016 23:12:07 Attending Provider: LEELA CARBONE PA-C Primary Care Provider: ANUPAM BOONE MD PREET [...] 1 Tablet(s), Oral, two times a day oxyCODONE-acetaminophen (Percocet 5/325 oral tablet) 1 Tablet(s), Oral, every 6 hours as needed for Pain No more than 4,000mg acetaminophen/24hrs New Routed to Printer Stop Taking the Following Medications: traMADol (traMADol 50 mg oral tablet) Medication list as of 08-21-16 23:12 Attention: If you have any medications at home that are not on this list, DO NOT take them until youcontact your provider for clarification. Give a copy of your medication list to your primary care provider. Update your medication list any time medications or doses are changed and carry your medication list at all times in case of emergency. Electronically Signed By: LEELA CARBONE PA-C Signed On:21-AUG-2016 23:12:03 Additional Information: Source: [facility] [email or web address] Document Id: [id number] RNATIONAL TRADE TEACHER Layne Beaulieu L.P.N. - 08/19/2016 4:52 PM CST Supply From: LAYNE DIXON LPN ([place] [id number] Nurse) Sent: 08/19/2016 16:52:00 INTERNATIONAL TRADE TEACHER Subject: Supply The patient has been informed of other medical supply locations in this immediate area. The patient has been fitted with M sling w/pad . Instructions were given on the proper care and usage of the product with the patient verbalizing understanding of instructions. [facility] return and warranty policy was given and reviewed by the patient. Source: [facility] [email or web address] Document Id: [id number] Electronically signed by Kemal [facility] Plant Safety Leader [id number] at 12/27/2016 12:49 AM CDT Layne Beaulieu L.PFlexNFlex - 08/19/2016 4:08 PM CST MRI Screening Questionnaire MRI Screening Questionnaire Entered On: 08/19/2016 16:11 INTERNATIONAL TRADE TEACHER Performed On: 08/19/2016 16:08 INTERNATIONAL TRADE TEACHER by LAYNE DIXON LPN MRI Questionnaire Previous MRI, CT, or X-rays Done : Yes LAYNE DIXON LPN - 08/19/2016 16:08 INTERNATIONAL TRADE TEACHER MRI Cannot be Done Grid Artificial heart valve : No Automated Internal Cardiac Defibrillator : No Brain aneurysm clips : No Cochlear implant : No History of pacemaker : No Implants with a magnet : No Internal electrodes/wires : No Neurostimulator/Biostimulator : No Conklin ludwin catheter : No LAYNE DIXON LPN - 08/19/2016 16:08 INTERNATIONAL TRADE TEACHER Patient Weight > 350 lbs : No LAYNE DIXON LPN - 08/19/2016 16:08 INTERNATIONAL TRADE TEACHER MRI Risk Factors Grid Patient is greater than 69 years old : No Diabetes (document medication) : No History of Kidney/Liver Transplant : No History of Renal Disease : No Receiving Dialysis : No LAYNE DIXON LPN - 08/19/2016 16:08 INTERNATIONAL TRADE TEACHER MRI Implants, Devices, Conditions Grid Aneurysm clip : No Control Implants (IUD, diaphragm) : No Intravascular Coil, Filter or Stent : No Drug Infusion Pump : No External Pain Control Device : No Intravascular Catheter/Port : No Magnetic/Elec/Mech Activated Implant : No Prosthesis/Metal Implanted Surgical : No Metal Fragments in Body : No Bullets/BB's/Shrapnel in Body : No Tattoos/Perm Make-Up/Body Jewelry : Yes (Comment: lower right abd. buttock, lower back, right and left shoulder tattoes [LAYNE DIXON LPN - 08/19/2016 16:08 INTERNATIONAL TRADE TEACHER] ) Hearing Aids/Dentures/Partial Plates : No History of cancer : No Eye Surgery/Implant : No Inner Ear Surgery/Implant : No Transdermal Med or EKG Patches : No Shunt : No Penile Implant : No Breast Tissue Music Supervisor/Implant : No : No (document number of weeks in Comment) : No Surgery : No LAYNE DIXON LPN - 08/19/2016 16:08 INTERNATIONAL TRADE TEACHER Claustrophobic : No Pain/Unable to Lay Still : No Metal In or Removed from Eyes Ever : No Form Completed : Yes LAYNE DIXON LPN - 08/19/2016 16:08 INTERNATIONAL TRADE TEACHER Source: [facility] POWERCHART Document Id: [id number] INTERNATIONAL TRADE TEACHER!47 RNATIONAL TRADE TEACHER Miscellaneous - Matilda Richter C.MShiv - 08/19/2016 3:33 PM CST Health Assessment Health Assessment Entered On: 08/19/2016 15:34 INTERNATIONAL TRADE TEACHER Performed On: 08/19/2016 15:33 INTERNATIONAL TRADE TEACHER by MATILDA RICHTER C.M.A. Health Assessment Complete Health Assessment Complete or Modified : Annual Health Assessment Annual Health Assessment Completed : Yes MATILDA RICHTER C.M.A. - 08/19/2016 15:33 INTERNATIONAL TRADE TEACHER Nutrition Nutrition Risk Factors by History Adult : None MATILDA RICHTER C.M.A. - 08/19/2016 15:33 INTERNATIONAL TRADE TEACHER Functional Current Daily Living Assistance : None MATILDA RICHTER C.M.A. - 08/19/2016 15:33 INTERNATIONAL TRADE TEACHER Dependent Habits Exposure to Tobacco Smoke : Patient smokes Smoking Status : Current every day smoker Tobacco 2A : Yes Tobacco Use/Currently Using : Yes Tobacco Use/Last 30 Days : Yes Tobacco Use/Last 12 months : Yes Type : Cigarettes: Less than 20 per day Tobacco Use/Advised to Quit : Yes Alcohol Use : No MATILDA RICHTER C.M.A. - 08/19/2016 15:33 INTERNATIONAL TRADE TEACHER Caffeine Use Grid Caffeine Use : Current Type : Coffee, Soft drinks Frequency : Daily Amount : 2 pots MATILDA RICHTER C.M.A. - 08/19/2016 15:33 INTERNATIONAL TRADE TEACHER Recreational Drug Use Grid Drug Use : None MATILDA RICHTER C.M.A. - 08/19/2016 15:33 INTERNATIONAL TRADE TEACHER Psychosocial Domestic Abuse Concerns : None Behavioral Health Screen/Safety Assmt : No Confucianism Preference : No Confucianism Affiliation MATILDA RICHTER C.M.A. - 08/19/2016 15:33 INTERNATIONAL TRADE TEACHER Advance Directive Advanced Directives : No Advance Directive Additional Information : No MATILDA RICHTER C.M.A. - 08/19/2016 15:33 INTERNATIONAL TRADE TEACHER Educ Needs Learning Style Preference Adult Grid Patient : Demonstration, Printed materials, Verbal explanation, Video/Educational TV Family : None MATILDA RICHTER C.M.A. - 08/19/2016 15:33 INTERNATIONAL TRADE TEACHER Source: [facility] POWERCHART Document Id: [id number] INTERNATIONAL TRADE TEACHER!38 RNATIONAL TRADE TEACHER Miscellaneous - Matilda Rihcter C.M.A. - 08/19/2016 3:26 PM CST Adult Refractory Products Supervisor Intake/History Adult Refractory Products Supervisor Intake/History Entered On: 08/19/2016 15:33 INTERNATIONAL TRADE TEACHER Performed On: 08/19/2016 15:26 INTERNATIONAL TRADE TEACHER by MATILDA RICHTER C.M.A. Intake Chief Complaint : - shoulder pain/ right - numbness in tips of fingers and generates to the middle of forearm on right side Onset of Symptoms : - saw Dr. Muse last week ,diagnosed with a torn rotator cuff, patient was puton tramadol but patient got extremely dizzy from this medication so she is no longer taking. - x-rays were taken LMP Date : 08/13/16 Temperature Oral : 36.7 DegC(Converted to: 98.1 DegF) Peripheral Pulse Rate : 84 /min Respiratory Rate : 20 /min Heart Rhythm : Regular Systolic Blood Pressure : 122 mmHg Diastolic Blood Pressure : 81 mmHg NIBP Mean : 95 mmHg BP Location : Right upper extremity Blood Pressure Cuff Size : Regular Height : 163 cm(Converted to: 5 ft 4 inch(es), 64 inch(es)) Actual Weight : 63.6 kg(Converted to: 140 lb 3 oz) Dosing Weight Clinic : 63.6 kg Clinic BSA : 1.7 Body Mass Index : 23.94 kg/m2 MATILDA RICHTER C.M.A. - 08/19/2016 15:26 INTERNATIONAL TRADE TEACHER General Info Information Given By : Patient Preferred Communication Mode : Verbal Languages : Maltese Is Patient Female and 13-50 no hysterectomy : Yes Status : Patient denies Are you ? : No MATILDA RICHTER C.M.A. - 08/19/2016 15:26 INTERNATIONAL TRADE TEACHER Subjective Pain Symptoms : Yes MATILDA RICHTER C.M.A. - 08/19/2016 15:26 INTERNATIONAL TRADE TEACHER Pain Scale Pain Scale Verbal 0-10 : Open MATILDA RICHTER C.M.A. - 08/19/2016 15:26 INTERNATIONAL TRADE TEACHER Pain Pain Assessment Grid Pain 1 Pain 2 Location : Shoulder Upper arm Laterality : Right Right Intensity : 9 9 MATILDA RICHTER C.M.A. - 08/19/2016 15:26 INTERNATIONAL TRADE TEACHER MATILDA RICHTER C.M.A. - 08/19/2016 15:26 INTERNATIONAL TRADE TEACHER Dependent Habits Exposure to Tobacco Smoke : Patient smokes Smoking Status : Current every day smoker Tobacco 2A : Yes Tobacco Use/Currently Using : Yes Tobacco Use/Last 30 Days : Yes Tobacco Use/Last 12 months : Yes Type : Cigarettes: Less than 20 per day Tobacco Use/Advised to Quit : Yes MATILDA RICHTER C.M.A. - 08/19/2016 15:26 INTERNATIONAL TRADE TEACHER Caffeine Use Grid Caffeine Use : Current Type : Coffee, Soft drinks Frequency : Daily Amount : 2 pots MATILDA RICHTER C.M.A. - 08/19/2016 15:26 INTERNATIONAL TRADE TEACHER Recreational Drug Use Grid Drug Use : None MATILDA RICHTER C.M.A. - 08/19/2016 15:26 INTERNATIONAL TRADE TEACHER [facility] Document Id: [id number] INTERNATIONAL TRADE TEACHER!58 RNATIONAL TRADE TEACHER documented in this encounter Plan of Treatment Not on filedocumented as of this encounter Visit Diagnoses Not on filedocumented in this encounter
--- OUTSIDE RECORDS SUMMARY | 2022-02-22 12:39 | XMS_ITS | Encounter Summary ---
:1985 Author Organization [facility] Address [address] [place] [address] Care Team Providers Name Role Phone Unavailable Primary Care Provider Unavailable Encounter Details Date Type Department Care Team Description 08/26/2014 Hospital Encounter HX [facility] Jessy Douglas M.D. 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 Do you belong to any clubs [...] at Date Recorded Female 06/09/2021 2:09 PM GRADER OPERATOR documented as of this encounter Last Filed Vital Signs Vital Sign Reading Time Taken Comments Blood Pressure 102/60 08/26/2014 2:09 PM GRADER OPERATOR Pulse - - Temperature - - Respiratory Rate - - Oxygen Saturation - - Inhaled Oxygen Concentration - - Weight 62.7 kg (138 lb 3.7 oz) 08/26/2014 2:09 PM GRADER OPERATOR Height 162 cm (5' 3.78) 08/26/2014 2:09 PM GRADER OPERATOR Body Mass Index 23.89 08/26/2014 2:09 PM GRADER OPERATOR documented in this encounter Miscellaneous Notes Miscellaneous - Jessy Spears M.D. - 08/26/2014 3:46 PM CST Ambulatory Patient Summary [facility] [address] [place] [phone] Visit Information Name: PREET TURK [facility] Number: [id number] Current Date: 08/26/2014 15:46:25 Physicians Attending Provider: JESSY SPEARS MD Primary Care Provider: ANUPAM BOONE MD PREET TURK has been given the following list of follow-up instructions, medication list, and patient education materials: Follow-up Instructions Your Medications [...] 2 Tablet(s), Oral, two times a day carBAMazepine (carbamazepine 200 mg oral tablet) 2 Tablet(s), Oral, two times a day with food folic acid (folic acid 1 mg oral tablet) 1 Tablet(s), Oral, once a day multivitamin, ( Plus oral tablet) 1 Tablet(s), Oral, once a day Stop Taking the Following Medications: Medication list as of 08-26-14 15:46 Attention: If you have any medications at home that are not on this list, DO NOT take them until youcontact your provider for clarification. Give a copy of your medication list to your primary care provider. Update your medication list any time medications or doses are changed and carry your medication list at all times in case of emergency. 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 Epilepsy NOS, not intractable Active 01/06/2012 Tobacco dependence Active Nephrolithiasis NOS Active Adopted Active Alcoholism in Family Active 01/06/12 Mother Other High-Risk Active 10/10/2012 Active 03/01/2014 Exam Active Your Upcoming Appointments Date Time Location Provider 09/10/2014 09:20 [facility] Lab [facility] Lab 09/10/2014 09:30 OWOC MANAGER RESEARCH DEVELOPMENT OWOC English As A Second Language Teacher Ultrasound Room 3 09/10/2014 10:00 OWOC MANAGER RESEARCH DEVELOPMENT Jessy Spears MD 09/24/2014 10:00 OWOC MANAGER RESEARCH DEVELOPMENT Jessy Spears MD 10/08/2014 10:00 OWOC MANAGER RESEARCH DEVELOPMENT Jessy Spears MD 10/22/2014 10:00 OWOC MANAGER RESEARCH DEVELOPMENT Jessy Spears MD 11/05/2014 10:00 OWOC MANAGER RESEARCH DEVELOPMENT Jessy Spears MD 11/12/2014 10:00 OWOC MANAGER RESEARCH DEVELOPMENT Jessy Spears MD 11/19/2014 10:00 OWOC MANAGER RESEARCH DEVELOPMENT Jessy Spears MD 11/26/2014 10:00 OWOC MANAGER RESEARCH DEVELOPMENT Jessy Spears MD 12/03/2014 10:00 OWOC MANAGER RESEARCH DEVELOPMENT Jessy Spears MD 12/10/2014 10:00 OWOC MANAGER RESEARCH DEVELOPMENT Jessy Spears MD Attention: Contact your local Clinic if further appointment detail needed. Your Goals/Additional instructions: Source: [facility] POWERCHART Document Id: [id number] ER OPERATOR Miscellaneous - Jessy Spears M.D. - 08/26/2014 3:46 PM CST Ambulatory Discharge Medication List [address] [phone] Visit Information Name: PREET TURK [facility] Number: [id number] Visit Date: 08/26/2014 15:46:24 Attending Provider: JESSY SPEARS MD Primary Care Provider: ANUPAM BOONE MD [...] 2 Tablet(s), Oral, two times a day carBAMazepine (carbamazepine 200 mg oral tablet) 2 Tablet(s), Oral, two times a day with food folic acid (folic acid 1 mg oral tablet) 1 Tablet(s), Oral, once a day multivitamin, ( Plus oral tablet) 1 Tablet(s), Oral, once a day Stop Taking the Following Medications: Medication list as of 08-26-14 15:46 Attention: If you have any medications at home that are not on this list, DO NOT take them until youcontact your provider for clarification. Give a copy of your medication list to your primary care provider. Update your medication list any time medications or doses are changed and carry your medication list at all times in case of emergency. Electronically Signed By: JESSY SPEARS MD Signed On:26-AUG-2014 15:46:20 Additional Information: Source: [facility] POWERCHART Document Id: [id number] ER OPERATOR Miscellaneous - Conversion, Historical Provider Ser - 08/26/2014 2:09 PM GRADER OPERATOR Adult Resident Care Manager Intake/History Adult Resident Care Manager Intake/History Entered On: 08/26/2014 14:11 GRADER OPERATOR Performed On: 08/26/2014 14:09 GRADER OPERATOR by NIKI HADLEY Intake Chief Complaint : OB See ACOG LMP Date : 03/01/2014 Ambulatory Intake Additional Information : 25 4/7 week gestation Systolic Blood Pressure : 102 mmHg Diastolic Blood Pressure : 60 mmHg NIBP Mean : 74 mmHg BP Location : Left upper extremity Blood Pressure Cuff Size : Regular Height : 162 cm(Converted to: 5 ft 4 inch(es), 64 inch(es)) Actual Weight : 62.7 kg(Converted to: 138 lb 4 oz) Dosing Weight Clinic : 62.7 kg Clinic BSA : 1.68 Body Mass Index : 23.89 kg/m2 NIKI HADLEY 08/26/2014 14:09 GRADER OPERATOR General Info Information Given By : Patient Languages : French Is Patient Female and 13-50 no hysterectomy : Yes Status : Confirmed positive Are you ? : No NIKI HADLEY 08/26/2014 14:09 GRADER OPERATOR Subjective Pain Symptoms : No NIKI HADLEY 08/26/2014 14:09 GRADER OPERATOR Dependent Habits Tobacco Use/Currently Using : Yes Exposure to Tobacco Smoke : Patient smokes Smoking Status : Current every day smoker NIKI HADLEY 08/26/2014 14:09 GRADER OPERATOR Tobacco Use Grid Type : Cigarettes Cigarette Use Packs/Day : 0.4 NIKI HADLEY 08/26/2014 14:09 GRADER OPERATOR Caffeine Use Grid Caffeine Use : Current Type : Coffee, Soft drinks Frequency : Daily Amount : 2 pots NIKI HADLEY 08/26/2014 14:09 GRADER OPERATOR Recreational Drug Use Grid Drug Use : None NIKI HADLEY 08/26/2014 14:09 GRADER OPERATOR ID Screen Drug Resistant Organism : No Travel Within Last 21 Days : NIKI Feldman 08/26/2014 14:09 GRADER OPERATOR Source: [facility] POWERCHART Document Id: [id number] GRADER OPERATOR!43 documented in this encounter Plan of Treatment Not on filedocumented as of this encounter Visit Diagnoses Not on filedocumented in this encounter
--- OUTSIDE RECORDS SUMMARY | 2022-02-22 12:39 | XMS_ITS | Encounter Summary ---
:1985 Author Organization [facility] Address [address] [place] [address] Care Team Providers Name Role Phone Unavailable Primary Care Provider Unavailable Encounter Details Date Type Department Care Team Description 03/13/2014 Hospital Encounter HX [facility] OWOC Jb Ospina, P.A.-[facility] [address], [place] [address] Social History Tobacco Use Types Packs/Day Years [...] or relatives? How often do you attend shinto or 1 to 4 times per year 05/18 nondenominational services? 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 - 03/13/2014 9:06 AM CDT [id number] Ms. Coulter presents to clinic today on emergency room visit secondary to a right knee injury that incurred on 02/25/2014. Patient was assessed as having a high index of suspicion of a torn meniscus in the knee secondary to the injury she had sustained earlier, was put on crutches nonweightbearing, aknee brace and follow up in Department of Orthopedics. Patient comes in today. No crutches, no knee brace. Stating that the pain is still persisting and increases with increased activity. Patient states the pain increases with increased activity, decreases with rest. Denies any further injury or trauma however there is one area of concern with the right knee. There is a central lesion over the patella secondary to an avulsion which has increased erythema surrounding the lesion. MEDICATIONS As per electronic medical record without changes dated 03/13/2014. ALLERGIES Per electronic medical record without changes dated 03/13/2014. VITAL SIGNS Please see electronic medical record under nursing notes dated 03/13/2014. PAST MEDICAL/SURGICAL HISTORY Reviewed and was nonsignificant or contributory. SOCIAL HISTORY She admits to half a pack of cigarette smoking per day in excess of 10 years. SYSTEMS REVIEW Reviewed, which was nonsignificant or contributory. PHYSICAL EXAMINATION GENERAL: Ms. Coulter is a 29-year-old female in no acute distress. Ambulatory, weightbearing with limp to right knee. Oriented x3. EXTREMITIES: Right knee presents with a central lesion as previously dictated with erythema surrounding the lesion. No adenitis noted. No discharge noted. Tenderness to palpation. There is no tenderness to palpation to the superior patellar tendon. There is tenderness to palpation to the medial and lateral joint lines. Extension was to 0 degrees and flexion only to 90 degrees without increasing pain.Modified Bal's, Tiburcio's, varus and valgus stress all elicited tenderness to the medial and lateral joint lines. There is full active range of motion all joints distally. Neurovascular intact. IMPRESSION/REPORT/PLAN Right knee pain, cellulitis right knee. PLAN: Keflex 500 mg 1 by mouth 3 times a day x10 days. We did refill tramadol 50 mg 1 by mouth every4 to 6 hours dispensed #60, no refills. Recommend and encouraged her to be crutches nonweightbearing. Also we did request an MRI to rule out any soft tissue pathology. The patient will follow up post MRI results. Also recommend modification of activities until MRI is completed and results are forwarded. Patient was satisfied with clinical visit. All questions were answered. Nannette Patrick P.A.-C./cathy Electronically Signed By: NANNETTE PATRICK On: 03/14/2014 08:23 AM Source: [facility] MHSDOLBEYNONRADSYS Document Id: [id number] documented in this encounter Miscellaneous Notes Miscellaneous - Nannette Patrick O.P.A.-C. - 03/13/2014 9:59 AM CDT Ambulatory Patient Summary [facility] [address] [place] [id number] Visit Information Name: PREET COULTER [facility] Number: [id number] Current Date: 03/13/2014 09:59:54 Physicians Attending Provider: NANNETTE PATRICK Primary Care Provider: ANUPAM BOONE MD PREET COULTER has been given the following list of [...] Oral, two times a day with food carBAMazepine (carbamazepine 200 mg oral tablet) 2 Tablet(s), Oral, two times a day cephalexin (Keflex 500 mg oral capsule) 1 cap, Oral, four times a day x 7 day(s) New Routed to [address] [address] *multivitamin, ( Plus oral tablet) 1 Tablet(s), Oral, once a day traMADol (traMADol 50 mg oral tablet) 1 Tablet(s), Oral, every 4 hours as needed for Pain New Routedto Printer * You have let us know that you are not taking this medication as listed. Please talk with your primary care provider or the health care provider who prescribed the medication as soon as possible. Stop Taking the Following Medications: Medication list as of 03-13-14 09:59 Attention: If you have any medications at home that are not on this list, DO NOT take them until youcontact your provider for clarification. Give a copy of your medication list to your primary care provider. Update your medication list any time medications or doses are changed and carry your medication list at all times in case of emergency. Electronically Signed By: NANNETTE PATRICK Signed On:13-MAR-2014 09:59:41 Your Allergies & Intolerances Substance Reaction Symptoms [...] appointment detail needed. Your Goals/Additional instructions: Source: [facility] POWERCHART Document Id: [id number] Miscellaneous - Nannette Patrick O.P.A.-C. - 03/13/2014 9:59 AM CDT Ambulatory Discharge Medication List [facility] [address] [place] [id number] Visit Information Name: PREET COULTER [facility] Number: [id number] Visit Date: 03/13/2014 09:59:53 Attending Provider: NANNETTE PATRICK Primary Care Provider: ANUPAM BOONE MD PREET COULTER has been given the following list of [...] Oral, two times a day with food carBAMazepine (carbamazepine 200 mg oral tablet) 2 Tablet(s), Oral, two times a day cephalexin (Keflex 500 mg oral capsule) 1 cap, Oral, four times a day x 7 day(s) New Routed to [address] [address] *multivitamin, ( Plus oral tablet) 1 Tablet(s), Oral, once a day traMADol (traMADol 50 mg oral tablet) 1 Tablet(s), Oral, every 4 hours as needed for Pain New Routedto Printer * You have let us know that you are not taking this medication as listed. Please talk with your primary care provider or the health care provider who prescribed the medication as soon as possible. Stop Taking the Following Medications: Medication list as of 03-13-14 09:59 Attention: If you have any medications at home that are not on this list, DO NOT take them until youcontact your provider for clarification. Give a copy of your medication list to your primary care provider. Update your medication list any time medications or doses are changed and carry your medication list at all times in case of emergency. Electronically Signed By: NANNETTE PATRICK Signed On:13-MAR-2014 09:59:41 Additional Information: Source: [facility] POWERCHART Document Id: [id number] Miscellaneous - Conversion, Historical Provider Ser - 03/13/2014 9:51 AM CDT MRI Screening Questionnaire MRI Screening Questionnaire Entered On: 03/13/2014 9:53 CDT Performed On: 03/13/2014 9:51 CDT by YAW MONTANA MRI Questionnaire Previous MRI, CT, or X-rays Done : Yes Location of previous MRI, CTor X-ray : [facility] in [place] on 03/13/14 YAW MONTANA - 03/13/2014 9:51 CDT MRI Cannot be Done Grid Automated Internal Cardiac Defibrillator : No Brain aneurysm clips : No Cochlear implant : No History of pacemaker : No Implants with a magnet : No Internal electrodes/wires : No Neurostimulator/Biostimulator : No Broseley ludwin catheter : No YAW MONTANA - 03/13/2014 9:51 CDT Patient Weight > 350 lbs : YAW Holliday - 03/13/2014 9:51 CDT MRI Risk Factors Grid Age 69 or Older : No Diabetes (document medication) : No History of Kidney/Liver Transplant : No History of Renal Disease : No Hypertension : No Receiving Dialysis : No YAW MONTANA - 03/13/2014 9:51 CDT Creatinine/GFR Results Completed : YAW Holliday - 03/13/2014 9:51 CDT MRI Implants, Devices, Conditions Grid Aneurysm clip [...] No Tattoos/Perm Make-Up/Body Jewelry : Yes (Comment: tattoos, ears pierced [YAW MONTANA - 03/13/2014 9:51 CDT] ) Hearing Aids/Dentures/Partial Plates : No History of cancer : No Eye Surgery/Implant : No Inner Ear Surgery/Implant : No Transdermal Med or EKG Patches : No Shunt : No Penile Implant : No Breast Tissue Instrument Man/Implant : No : No (document number of weeks in Comment) : No Surgery : Yes (Comment: T&A [YAW MONTANA - 03/13/2014 9:51 CDT] ) YAW MONTANA - 03/13/2014 9:51 CDT Claustrophobic : No Pain/Unable to Lay Still : No Metal In or Removed from Eyes Ever : No Form Completed : Yes Education Materials Provided : Yes YAW MONTANA - 03/13/2014 9:51 CDT Source: [facility] Ex[facility] [employer] Platform Document Id: [id number] CDT!50 Miscellaneous - Conversion, Historical Provider Ser - 03/13/2014 9:12 AM CDT Adult Front Services Agent Intake/History Adult Front Services Agent Intake/History Entered On: 03/13/2014 9:15 CDT Performed On: 03/13/2014 9:12 CDT by YAW MONTANA Intake Chief Complaint : right knee pain, pain along the joint line , more on the medial side Feels like it is bone on bone, grinding Starting to swell again DOI: 02/21/14 Systolic Blood Pressure : 122 mmHg Diastolic Blood Pressure : 78 mmHg NIBP Mean : 93 mmHg BP Location : Right upper extremity Blood Pressure Cuff Size : Regular Height : 162.3 cm(Converted to: 5 ft 4 inch(es), 64 inch(es)) Actual Weight : 57.4 kg(Converted to: 126 lb 9 oz) Dosing Weight Clinic : 57.4 kg Clinic BSA : 1.61 Body Mass Index : 21.79 kg/m2 YAW MONTANA - 03/13/2014 9:12 CDT General Info Information Given By : Patient Languages : Mozambican Is Patient Female and 13-50 no hysterectomy : Yes Status : Patient denies Are you ? : No YAW MONTANA 03/13/2014 9:12 CDT Subjective Pain Symptoms : Yes YAW MONTANA 03/13/2014 9:12 CDT Pain Pain Assessment Grid Pain 1 Location : Knee Laterality : Right Intensity : 8 YAW MONTANA 03/13/2014 9:12 CDT Dependent Habits Tobacco Use/Currently Using : Yes Exposure to Tobacco Smoke : Patient smokes Smoking Status : Current every day smoker YAW MONTANA 03/13/2014 9:12 CDT Tobacco Use Grid Type : Cigarettes Cigarette Use Packs/Day : 0.5 YAW MONTANA 03/13/2014 9:12 CDT Caffeine Use Grid Caffeine Use : Current Type : Coffee, Soft drinks Frequency : Daily Amount : 2 pots YAW MONTANA 03/13/2014 9:12 CDT Recreational Drug Use Grid Drug Use : None YAW MONTANA 03/13/2014 9:12 CDT Source: [facility] Ex[facility] [employer] Document Id: [id number] CDT!44 documented in this encounter Plan of Treatment Not on filedocumented as of this encounter Procedures Procedure Name Priority Date/Time Associated Diagnosis Comme nts DX KNEE RIGHT Routine 03/13/2014 9:20 AM Results for this STANDING RIGHT 3 CDT procedure a re in VIEWS the results section. documented in this encounter Results DX Knee Right Standing Right 3 Views (03/13/2014 9:20 AM CDT) Anatomical Region Laterality Modality Lower Extremity, Knee Right Radiographic Imagi ng Specimen (Source) Anatomical Collection Method Collection Time Re ceived Time Location / / Volume Laterality 03/13/2014 9:20 AM CDT Addenda Addendum by ProviderGamal M.D. o n 03/13/2014 9:20 AM CDT RAD^^^OW XR Bilat AP Std and Knee Rt 3 views 03/13/2014 09:20:27 Impressions 03/13/2014 3:12 PM CDT ??Please see above dictation. Narrative 03/13/2014 3:12 PM CDT EXAM: ??XR Knee Bilat AP Std + Knee Rt 3 view INDICATION: ??right knee pain COMPARISON: ??None. FINDINGS: ??Skeletally mature individual . Normal bone mineralization. No acute fractures or dislocations. Procedure Note Tushar Chase M.D. / Provider, His sarah M.D. - 11/26/2016 EXAM: XR Knee Bilat AP Std + Knee Rt 3 v iew INDICATION: right knee pain COMPARISON: None. FINDINGS: Skeletally mature individual. Normal bone mineralization. No acute fractures or dislocations. IMPRESSION: Please see above dictation. Pamella Payne(R)(CT), RFlexTFlex(R) IMG DIAGNOSTIC IMAG ING PROCEDURES documented in this encounter Visit Diagnoses Not on filedocumented in this encounter
--- OUTSIDE RECORDS SUMMARY | 2022-02-22 12:39 | XMS_ITS | Encounter Summary ---
:1985 Author Organization [facility] Address [address] [place] [address] Care Team Providers Name Role Phone Unavailable Primary Care Provider Unavailable Encounter Details Date Type Department Care Team Description 11/21/2014 Hospital Encounter HX NO MAPPING Jeronimo Dyer M.D. 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
--- OUTSIDE RECORDS SUMMARY | 2022-02-22 12:39 | XMS_ITS | Encounter Summary ---
:1985 Author Organization [facility] Address [address] [place] [address] Care Team Providers Name Role Phone Unavailable Primary Care Provider Unavailable Encounter Details Date Type Department Care Team Description 02/23/2014 Hospital Encounter HX NO MAPPING Arik Griffin III, M.D. (Skip), M.P.H. 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
--- OUTSIDE RECORDS SUMMARY | 2022-02-22 12:39 | XMS_ITS | Encounter Summary ---
:[address] [facility] Address [address] [place] [address] Care Team Providers Name Role Phone Unavailable Primary Care Provider Unavailable Encounter Details Date Type Department Care Team Description 02/25/2014 Hospital Encounter HX NO MAPPING Salvatore Flores M.D. 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
--- OUTSIDE RECORDS SUMMARY | 2022-02-22 12:39 | XMS_ITS | Encounter Summary ---
:1985 Author Organization [facility] Address [address] [place] [address] Care Team Providers Name Role Phone Unavailable Primary Care Provider Unavailable Encounter Details Date Type Department Care Team Description 07/07/2014 Hospital Encounter HX [facility] Vanna Del Toro, SPENSER, C.N.P. 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 - 07/07/2014 3:01 PM CST [id number] CHIEF COMPLAINT/REASON FOR VISIT Routine visit at 18 and 1/7th weeks' gestation. IMPRESSION/REPORT/PLAN Please refer to electronic medical record for details surrounding this visit. Vanna Edmondson CNP/cathy Electronically Signed By: VANNA EDMONDSON RN, CNP On: 07/08/2014 11:04 AM Source: [facility] MHSDOLBEYNONRADSYS Document Id: [id number] HOUSE OPERATOR documented in this encounter Miscellaneous Notes Miscellaneous - Vanna Edmondson APRN, C.N.P. - 07/07/2014 3:52 PM MIX HOUSE OPERATOR Ambulatory Patient Summary [facility] [address] [place], [place] [id number] Visit Information Name: PREET TURK [facility] Number: [id number] Current Date: 07/07/2014 15:52:48 Physicians Attending Provider: VANNA EDMONDSON RN, CNP Primary Care Provider: ANUPAM BOONE MD PREET [...] Tablet(s), Oral, once a day multivitamin, ( 19 oral tablet, chewable) 1 Tablet(s), Oral, once a day Stop Taking the Following Medications: Medication list as of 07-07-14 15:52 Attention: If you have any medications at home that are not on this list, DO NOT take them until youcontact your provider for clarification. Give a copy of your medication list to your primary care provider. Update your medication list any time medications or doses are changed and carry your medication list at all times in case of emergency. 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 Your Goals/Additional instructions: Source: [facility] POWERCHART Document Id: [id number] HOUSE OPERATOR Miscellaneous - Vanna Edmondson APRN, C.N.P. - 07/07/2014 3:52 PM MIX HOUSE OPERATOR Ambulatory Discharge Medication List [facility] [address] [place] [id number] Visit Information Name: PREET TURK [facility] Number: [id number] Visit Date: 07/07/2014 15:52:47 Attending Provider: VANNA EDMONDSON RN BEHAVIORAL CONSULTANT Primary Care Provider: ANUPAM BOONE MD PREET [...] Tablet(s), Oral, once a day multivitamin, ( 19 oral tablet, chewable) 1 Tablet(s), Oral, once a day Stop Taking the Following Medications: Medication list as of 07-07-14 15:52 Attention: If you have any medications at home that are not on this list, DO NOT take them until youcontact your provider for clarification. Give a copy of your medication list to your primary care provider. Update your medication list any time medications or doses are changed and carry your medication list at all times in case of emergency. Electronically Signed By: VANNA EDMONDSON RN BEHAVIORAL CONSULTANT Signed On:07-JUL-2014 15:52:44 Additional Information: Source: [facility] POWERCHART Document Id: [id number] HOUSE OPERATOR Miscellaneous - Richelle Gates L.P.N. - 07/07/2014 3:07 PM CST Adult Practicing Dermatologist Intake/History Adult Practicing Dermatologist Intake/History Entered On: 07/07/2014 15:11 MIX HOUSE OPERATOR Performed On: 07/07/2014 15:07 MIX HOUSE OPERATOR by RICHELLE GATES Intake Chief Complaint : ob cehck LMP Date : 03-01-2014 Systolic Blood Pressure : 128 mmHg Diastolic Blood Pressure : 64 mmHg NIBP Mean : 85 mmHg Height : 162 cm(Converted to: 5 ft 4 inch(es), 64 inch(es)) Actual Weight : 61.7 kg(Converted to: 136 lb 0 oz) Dosing Weight Clinic : 61.7 kg Clinic BSA : 1.67 Body Mass Index : 23.51 kg/m2 RICHELLE GATES - 07/07/2014 15:07 MIX HOUSE OPERATOR General Info Information Given By : Patient Languages : Macedonian Is Patient Female and 13-50 no hysterectomy : Yes Status : Confirmed positive Are you ? : No RICHELLE GATES - 07/07/2014 15:07 MIX HOUSE OPERATOR Subjective Pain Symptoms : No RICHELLE GATES - 07/07/2014 15:07 MIX HOUSE OPERATOR Dependent Habits Tobacco Use/Currently Using : No Exposure to Tobacco Smoke : Patient smokes Smoking Status : Current every day smoker RICHELLE GATES - 07/07/2014 15:07 MIX HOUSE OPERATOR Tobacco Use Grid Type : Cigarettes Cigarette Use Packs/Day : 0.4 RICHELLE GATES 07/07/2014 15:07 MIX HOUSE OPERATOR Caffeine Use Grid Caffeine Use : Current Type : Coffee, Soft drinks Frequency : Daily Amount : 2 pots RICHELLE GATES - 07/07/2014 15:07 MIX HOUSE OPERATOR Recreational Drug Use Grid Drug Use : None RICHELLE GATES 07/07/2014 15:07 MIX HOUSE OPERATOR ID Screen Drug Resistant Organism : No Travel Within Last 21 Days : No RICHELLE GATES 07/07/2014 15:07 MIX HOUSE OPERATOR Source: [facility] POWERCHART Document Id: [id number] MIX HOUSE OPERATOR!40 HOUSE OPERATOR documented in this encounter Plan of Treatment Not on filedocumented as of this encounter Visit Diagnoses Not on filedocumented in this encounter
--- OUTSIDE RECORDS SUMMARY | 2022-02-22 12:39 | XMS_ITS | Encounter Summary ---
:1985 Author Organization [facility] Address [address] [place] [address] Care Team Providers Name Role Phone Unavailable Primary Care Provider Unavailable Encounter Details Date Type Department Care Team Description 02/25/2014 Hospital Encounter HX NO MAPPING Salvatore Flores M.D. [address] [place], [place] [phone] (Wo rk) Social History [...] at Date Recorded Female 06/09/2021 2:09 PM CUSTOMER SERVICES COORDINATOR documented as of this encounter Last Filed Vital Signs Vital Sign Reading Time Taken Comments Blood Pressure - - Pulse - - Temperature - - Respiratory Rate - - Oxygen Saturation - - Inhaled Oxygen Concentration - - Weight - - Height 165 cm (5' 4.96) 02/25/2014 5:22 PM CDT Body Mass Index - - documented in this encounter Plan of Treatment Not on filedocumented as of this encounter Visit Diagnoses Not on filedocumented in this encounter
--- OUTSIDE RECORDS SUMMARY | 2022-02-22 12:39 | XMS_ITS | Encounter Summary ---
:1985 Author Organization [facility] Address [address] [place] [address] Care Team Providers Name Role Phone Unavailable Primary Care Provider Unavailable Encounter Details Date Type Department Care Team Description 09/10/2014 Hospital Encounter HX [facility] Chidi Spears M. D. Social History Tobacco Use Types Packs/Day Years [...] 1 to 4 times per year 05/18 latter day services? Do you belong to any clubs [...] Date Recorded Female 06/09/2021 2:09 PM SENIOR PAYROLL MANAGER documented as of this encounter Last Filed Vital Signs Vital Sign Reading Time Taken Comments Blood Pressure - - Pulse - - Temperature - - Respiratory Rate - - Oxygen Saturation - - Inhaled Oxygen Concentration - - Weight - - Height 162 cm (5' 3.78) 09/10/2014 9:12 AM SENIOR PAYROLL MANAGER Body Mass Index - - documented in this encounter Plan of Treatment Not on filedocumented as of this encounter Procedures Procedure Name Priority Date/Time Associated Comments Diagnosis GLUCOSE, GESTATIONAL Routine 09/10/2014 10:35 Res ults for this 1HR, S AM SENIOR PAYROLL MANAGER procedure are i n the results section. HEMOGLOBIN, B Routine 09/10/2014 10:35 Results fo r this AM SENIOR PAYROLL MANAGER procedure are i n the results section. documented in this encounter Results Glucose, Gestational 1HR (09/10/2014 10:35 AM SENIOR PAYROLL MANAGER) P athologist Signature HXGlucose 1 Hr 109 70 - 139 POWERCHART OB MGDL Specimen (Source) Anatomical Collection Method Collection Time Re ceived Time Location / / Volume Laterality Blood 09/10/2014 10:35 AM SENIOR PAYROLL MANAGER Chidi Spears M.D. LAB BLOOD ADD-ON Performing Organization Address City/[facility]/ZIP Code Phon e Number POWERCHART (ABNORMAL) Hemoglobin (09/10/2014 10:35 AM SENIOR PAYROLL MANAGER) P athologist Signature Hemoglobin 11.1 (L) 12.0 - 15.5 POWERCHART GDL Specimen (Source) Anatomical Collection Method Collection Time Re ceived Time Location / / Volume Laterality Blood 09/10/2014 10:35 AM SENIOR PAYROLL MANAGER Chidi Spears M.D. LAB BLOOD ADD-ON Performing Organization Address City/State/[facility] Code Phon e Number POWERCHART documented in this encounter Visit Diagnoses Not on filedocumented in this encounter
--- OUTSIDE RECORDS SUMMARY | 2022-02-22 12:39 | XMS_ITS | Encounter Summary ---
:1985 Author Organization [facility] Address [address] [place] [address] Care Team Providers Name Role Phone Unavailable Primary Care Provider Unavailable Encounter Details Date Type Department Care Team Description 11/12/2014 Hospital Encounter HX [facility] Jessy Douglas M.D. Social History [...] 1 to 4 times per year 05/18 buddhism services? Do you belong to any clubs [...] Recorded Female 06/09/2021 2:09 PM DIRECTOR OF SPEECH PATHOLOGY documented as of this encounter Last Filed Vital Signs Vital Sign Reading Time Taken Comments Blood Pressure 112/70 11/12/2014 9:45 AM CDT Pulse - - Temperature - - Respiratory Rate - - Oxygen Saturation - - Inhaled Oxygen Concentration - - Weight 64.2 kg (141 lb 8.6 oz) 11/12/2014 9:45 AM CDT Height 162 cm (5' 3.78) 11/12/2014 9:45 AM CDT Body Mass Index 24.46 11/12/2014 9:45 AM CDT documented in this encounter Miscellaneous Notes Telephone Encounter - Conversion, Historical Provider Ser - 10/26/2015 4:58 PM CDT *Phone Message- Dr. Dyer Document Contains Addenda Addendum by RICHELLE SEAY LPN on October 28, 2015 08:34:46 CDT Patient said took another test and it was negative. She requested an appointment to discuss control. Addendum by RICHELLE SEAY LPN on October 27, 2015 16:54:26 CDT Left message to call back. Addendum by RICHELLE SEAY LPN on October 27, 2015 08:12:06 CDT Left message to call back. From: OLAYINKA BOONE To: OW TANK OFFICER Nurse; Sent: 10/26/2015 16:58:44 CDT Subject: *Phone Message- Dr. Dyer Caller is: ( x ) Patient ( ) Mother ( ) Father ( ) Spouse ( ) Daughter ( ) Son ( ) Pharmacy ( ) Other: Physician: Dr. Dyer Patient MRN #: Reason for Call: Message: S: Pt called clinic to talk to nurse B: patient had a positive home A: R: Please call pt at [phone] Advice/Action: Source used: ( ) Verbalizes understanding [...] back cell phone number ( ) [facility] Document Id: [id number] Telephone Encounter - Iris Brown, L.P.N. - 11/21/2014 9:48 AM CDT *Phone Message From: IRIS BROWN ([facility] Nurse) Sent: 11/21/2014 09:48:10 CDT Subject: *Phone Message Caller is: (x ) Patient ( ) Mother ( ) Father ( ) Spouse ( ) Daughter ( ) Son ( ) Pharmacy ( ) Other: Physician: [place] pt Patient MRN #: Reason for Call: Message: calling stating she is 38 wks and is have vaginal bleeding and mucus plug may have come out. was advised going to L&D for evaluation . pt states she is going to go to L&D Advice/Action: Source used: ( ) Verbalizes understanding [...] back cell phone number ( ) [facility] Document Id: [id number] Electronically signed by Conversion, [facility] Diesel Technology Instructor [id number] at 12/11/2016 4:21 PM CDT Miscellaneous - Jessy Perkins M.D. - 11/12/2014 10:10 AM CDT Ambulatory Patient Summary [address] [id number] Visit Information Name: PREET TURK [facility] Number: [id number] Current Date: 11/12/2014 10:10:06 Physicians Attending Provider: JESSY PERKINS MD Primary Care Provider: ANUPAM BOONE MD [facility] has been given the following list of [...] Oral, two times a day with food ferrous sulfate (Slow Fe (as elemental iron) 45 mg oral tablet, extended release) 1 Tablet(s), Oral,once a day folic acid (folic acid 1 mg oral tablet) 1 Tablet(s), Oral, once a day multivitamin, ( Plus oral tablet) 1 Tablet(s), Oral, once a day Stop Taking the Following Medications: Medication list as of 11-12-14 10:10 Attention: If you have any medications at home that are not on this list, DO NOT take them until youcontact your provider for clarification. Give a copy of your medication list to your primary care provider. Update your medication list any time medications or doses are changed and carry your medication list at all times in case of emergency. 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 Your Goals/Additional instructions: Source: [facility] POWERCHART Document Id: [id number] Miscellaneous - Jessy Perkins M.D. - 11/12/2014 10:10 AM CDT Ambulatory Discharge Medication List [facility] [address] [place], [place] [phone] Visit Information Name: PREET TURK [facility] Number: [id number] Visit Date: 11/12/2014 10:10:05 Attending Provider: JESSY PERKINS MD Primary Care Provider: ANUPAM BOONE MD [facility] has been given the following list of [...] Oral, two times a day with food ferrous sulfate (Slow Fe (as elemental iron) 45 mg oral tablet, extended release) 1 Tablet(s), Oral,once a day folic acid (folic acid 1 mg oral tablet) 1 Tablet(s), Oral, once a day multivitamin, ( Plus oral tablet) 1 Tablet(s), Oral, once a day Stop Taking the Following Medications: Medication list as of 11-12-14 10:10 Attention: If you have any medications at home that are not on this list, DO NOT take them until youcontact your provider for clarification. Give a copy of your medication list to your primary care provider. Update your medication list any time medications or doses are changed and carry your medication list at all times in case of emergency. Electronically Signed By: JESSY PERKINS MD Signed On:12-NOV-2014 10:10:00 Additional Information: Source: [facility] POWERCHART Document Id: [id number] Miscellaneous - Conversion, Historical Provider Ser - 11/12/2014 9:45 AM CDT Adult Clip On Sunglasses Inspector Intake/History Adult Clip On Sunglasses Inspector Intake/History Entered On: 11/12/2014 9:47 CDT Performed On: 11/12/2014 9:45 CDT by NIKI HADLEY Intake Chief Complaint : OB See ACOG LMP Date : 03/01/2014 Ambulatory Intake Additional Information : 36 3/7 week gestation Systolic Blood Pressure : 112 mmHg Diastolic Blood Pressure : 70 mmHg NIBP Mean : 84 mmHg BP Location : Left upper extremity Blood Pressure Cuff Size : Regular Height : 162 cm(Converted to: 5 ft 4 inch(es), 64 inch(es)) Actual Weight : 64.2 kg(Converted to: 141 lb 9 oz) Dosing Weight Clinic : 64.2 kg Clinic BSA : 1.7 Body Mass Index : 24.46 kg/m2 NIKI HADLEY 11/12/2014 9:45 CDT General Info Information Given By : Patient Languages : Arabic Is Patient Female and 13-50 no hysterectomy : Yes Status : Confirmed positive Are you ? : No NIKI HADLEY 11/12/2014 9:45 CDT Subjective Pain Symptoms : No NIKI HADLEY 11/12/2014 9:45 CDT Dependent Habits Tobacco Use/Currently Using : Yes Exposure to Tobacco Smoke : Patient smokes Smoking Status : Current every day smoker NIKI HADLEY 11/12/2014 9:45 CDT Tobacco Use Grid Type : Cigarettes Cigarette Use Packs/Day : 0.4 NIKI HADLEY 11/12/2014 9:45 CDT Caffeine Use Grid Caffeine Use : Current Type : Coffee, Soft drinks Frequency : Daily Amount : 2 pots NIKI HADLEY 11/12/2014 9:45 CDT Recreational Drug Use Grid Drug Use : None NIKI HADLEY - 11/12/2014 9:45 CDT ID Screen Drug Resistant Organism : No Travel Within Last 21 Days : No Contact with someone with Ebola : No LEONIE NIKI Garcia - 11/12/2014 9:45 CDT Source: [facility] [employer] Document Id: [id number] CDT!44 documented in this encounter Plan of Treatment Not on filedocumented as of this encounter Visit Diagnoses Not on filedocumented in this encounter
--- OUTSIDE RECORDS SUMMARY | 2022-02-22 12:39 | XMS_ITS | Encounter Summary ---
:1985 Author Organization [facility] Address [address] [place] [address] Care Team Providers Name Role Phone Unavailable Primary Care Provider Unavailable Encounter Details Date Type Department Care Team Description 06/03/2014 Hospital Encounter HX [facility] Jessy Douglas M.D. Social History [...] at Date Recorded Female 06/09/2021 2:09 PM TRESTLE MECHANIC documented as of this encounter Last Filed Vital Signs Vital Sign Reading Time Taken Comments Blood Pressure - - Pulse - - Temperature - - Respiratory Rate - - Oxygen Saturation - - Inhaled Oxygen Concentration - - Weight 62.4 kg (137 lb 9.1 oz) 06/03/2014 3:15 PM TRESTLE MECHANIC Height 162 cm (5' 3.78) 06/03/2014 3:15 PM TRESTLE MECHANIC Body Mass Index 23.78 06/03/2014 3:15 PM TRESTLE MECHANIC documented in this encounter Nursing Notes Danilo Acuna R.N. - 06/03/2014 3:40 PM CST Ambulatory Patient Education The following Patient Education Materials have been given to the patient: Patient Education Materials: Custom [id number] - [facility] Guide to a Healthy (CUSTOM) Custom KL2436 - [facility] Guide to a Healthy Tdap Vaccine for Women, Women Who Recently Gave , and Others in Contact With Infants-HZ3788 First Trimester Screening for Down Syndrome-RZ2453 Maternal Serum Screening-WA2817 Cystic Fibrosis Carrier Testing-XF7007 A Family Guide to Eating Ariisto Fish-[facility] IC [phone] Screening-[facility] IC [phone] Protecting Your Baby and Yourself From Listeriosis-[facility] Beginnings: , , and Beyond-[facility] Source: [facility] SessionsCHART Document Id: [id number] TLE MECHANIC Danilo Acuna R.N. - 06/03/2014 3:39 PM CST Nurse Only Documentation Nurse Only Documentation Entered On: 06/03/2014 15:39 TRESTLE MECHANIC Performed On: 06/03/2014 15:39 TRESTLE MECHANIC by DANILO ACUNA Nurse Only Documentation Nurse Only Visit Documentation : nob education/intake appt-no charge DANILO ACUNA - 06/03/2014 15:39 TRESTLE MECHANIC Source: [facility] SessionsCHART Document Id: [id number] TRESTLE MECHANIC!3 TLE MECHANIC Danilo Acuna R.N. - 06/03/2014 3:15 PM CST Antepartum Exam, Initial Document Has Been Updated Antepartum Exam, Initial Entered On: 06/03/2014 15:22 TRESTLE MECHANIC Performed On: 06/03/2014 15:15 TRESTLE MECHANIC by DANILO ACUNA Vitals/Ht/Wt LMP Date : 03/01/14 Pain Symptoms : No Actual Weight : 62.4 kg(Converted to: 137 lb 9 oz, 137.568 lb) Height : 162 cm(Converted to: 5 ft 4 inch(es), 64 inch(es)) Body Mass Index : 23.78 kg/m2 OB Provider : JESSY SPEARS MD, CATHERINE A - 06/03/2014 15:15 TRESTLE MECHANIC Obstetrical History History (As Of: 06/03/2014 15:22:41 TRESTLE MECHANIC) - 3, Para Fullterm - 1, Para - , Abortions - 1, Para Living - 1 Delivery/Outcome Date: 10/24/2012 Gestation Age At : 38 weeks 3 days ; Full Gestation ; Delivery Method: Vaginal ; Labor Duration: 4 hrs 0 mins ; Gender: Male ; Weight: 5lb 12oz / 2608gm ; Anesthesia: Epidural ; Delivery Hospital: [facility] ; Labor: No ; Outcome: Live ;Child Name: Main Delivery/Outcome Date: 07/17/2013 Delivery Method: Ectopic ; Outcome: Add'l Information Prepreg Amount : 1ppd Preg Amount : 8/day Alcohol Prepreg Amount : 0 Alcohol Preg Amount : 0 Recreational Drug Prepreg Amount : 0 Recreational Drug Preg Amount : 0 Caffeine Prepreg Amount : several Caffeine Preg Amount : 3/day DANILO ACUNA - 06/03/2014 15:15 TRESTLE MECHANIC Problems & Procedures (As Of: 06/03/2014 15:39:31 TRESTLE MECHANIC) Problems(Active) Adopted (SNOMED CT :531137997 ) Name of Problem: Adopted ; Recorder: TIFFANIE WOMACK MD; Confirmation: Confirmed ; Classification: Medical ; Code: 980867732 ; Contributor System: [employer] ; Last Updated: 01/06/2012 16:11 CDT ; Life Cycle Date: 01/06/2012 ; Life Cycle Status: Active ; Responsible Provider: TIFFANIE WOMACK MD; Vocabulary: SNOMED CT Alcoholism in Family (ICD-9-CM :V61.41 ) Name of Problem: Alcoholism in Family ; Recorder: TIFFANIE WOMACK MD; Confirmation: Confirmed ; Classification: UPDATE NEEDED ; Code: V61.41 ; Contributor System: [employer] ; Last Updated: 01/06/2012 16:12 CDT ; Life Cycle Date: 01/06/2012 ; Life Cycle Status: Active ; Responsible Provider: TIFFANIE WOMACK MD; Vocabulary: ICD-9-CM ; Comments: 01/06/2012 16:12 - TIFFANIE WOMACK MD Mother Dermatitis Due To Metals (ICD-9-CM :692.83 ) Name of Problem: Dermatitis Due To Metals ; Onset Date:03/2003 ; Confirmation: Provisional ; Classification: UPDATE NEEDED ; Code: 692.83 ; Contributor System: [employer] ; Last Updated: 03/03/2006 0:00 CDT ; [...] Medical ; Code: 592.0 ; Contributor System: [employer] ; Last Updated: 01/06/2012 16:11 CDT ; [...] Responsible Provider: MAX SAEED MD; Vocabulary: ICD-9-CM (SNOMED CT :397650870 ) Name of Problem: ; Onset Date: 03/01/2014 ; Recorder: DANILO ACUNA; Confirmation: Probable ; Classification: Medical ; Code: 615884470 ; Last Updated: 06/03/2014 15:15 TRESTLE MECHANIC ; Life Cycle Status: Active ; Responsible Provider: JESSY SPEARS MD; Vocabulary: SNOMED CT Tobacco dependence (ICD-9-CM :305.1 ) Name of Problem: Tobacco dependence ; Recorder: TIFFANIE WOMACK MD; Confirmation: Confirmed ; Classification: Medical ; Code: 305.1 ; Contributor System: [employer] ; Last Updated: 01/06/2012 16:10 CDT ; Life Cycle Date: 01/06/2012 ; Life Cycle Status: Active ; Responsible Provider: TIFFANIE WOMACK MD; Vocabulary: ICD-9-CM Diagnoses(Active) Supervision of Other Normal Date: 06/03/2014 ; Diagnosis Type: Working ; Confirmation: Confirmed ; Clinical Dx: Supervision of Other Normal ; Classification: Nursing ; Clinical Service: Non-Specified ; Code: ICD-9-CM ; Probability: 0 ; Diagnosis Code: V22.1 - Procedure History (As Of: 06/03/2014 15:39:32 TRESTLE MECHANIC) Procedure Dt/Tm: 04/04/2012 ; Location: [facility] ; Anesthesia Minutes: 0 ; Procedure Name: Cytopathology, cervical or vaginal (any reporting system), collected in preservative fluid, automated thin layer preparation; manual screening under physician supervision ; Procedure Minutes: 0 ; Comments: 04/17 08:18 - NIKI HADLEY Negative ; Last Reviewed Dt/Tm: 04/04/2012 00:00:00 CDT Histories Most Recent Hospitalizations [facility] Hospitalization #1 Hospitalization #2 Reason : childbirth tonsillectomy DANILO ACUNA - 06/03/2014 15:15 TRESTLE MECHANIC DANILO ACUNA - 06/03/2014 15:15 TRESTLE MECHANIC (As Of : 06/03/2014 15:39:32 TRESTLE MECHANIC) - Past Medical History Dermatitis Due To Metals Name of Problem: Dermatitis Due To Metals ; Onset Date: 03/2003 ; Confirmation: Provisional ; Classification: UPDATE NEEDED ; Code: 692.83 ; Contributor System: [employer] ; Last Updated: 03/03/2006 0:00 CDT ; Life Cycle Date: 03/28/2003 ; Life Cycle Status: Active ; Vocabulary: ICD-9-CM Name of Problem: ; Onset Date: 01/29/2012 ; Recorder: DANILO ACUNA; Confirmation: Confirmed ; Classification: Medical ; Code: 695876786 ; Last Updated: 06/03/2014 15:18 TRESTLE MECHANIC ; LifeCycle Date: Unknown 10/24/2012 ; Life Cycle Status: Resolved ; Vocabulary: SNOMED CT ; Resolved Date: Unknown 10/24/2012 ; Resolved Age: 27 years Name of Problem: ; Recorder: DANILO ACUNA; Confirmation: Confirmed ; Classification: Medical ; Code: 569930953 ; Last Updated: 06/03/2014 15:19 TRESTLE MECHANIC ; Life Cycle Date: Unknown 07/17/2013 ; Life Cycle Status: Resolved ; Vocabulary: SNOMED CT ; Resolved Date: Unknown 07/17/2013 ; Resolved Age: 28 years Seizure (SZ) NOS Name of Problem: Seizure (SZ) NOS ; Recorder: DANILO ACUNA; Confirmation: Confirmed ; Classification: Medical ; Code: 780.39 ; Contributor System: PowerChart ; Last Updated: 06/03/2014 15:21 TRESTLE MECHANIC ; Life Cycle Status: Resolved ; Vocabulary: ICD-9-CM ; Comments: 06/03/2014 15:21 - DANILO ACUNA last 2 month ago on medication Nephrolithiasis NOS Name of Problem: Nephrolithiasis NOS ; Recorder: DANILO ACUNA; Confirmation:Confirmed ; Classification: Medical ; Code: 592.0 ; Contributor System: PowerChart ; Last Updated: 06/03/2014 15:39 TRESTLE MECHANIC ; Life Cycle Status: Resolved ; Vocabulary: ICD-9-CM Family History (As Of: 06/03/2014 15:39:32 TRESTLE MECHANIC) Patient is Adopted Anesth/Transfusion Transfusion Acceptable in Emergency : Yes Sabianist/Other Objections to Blood Transfusions : No DANILO ACUNA - 06/03/2014 15:15 TRESTLE MECHANIC ID Screen Drug Resistant Organism : No Travel Within Last 21 Days : No DANILO ACUNA - 06/03/2014 15:15 TRESTLE MECHANIC Dependent Habits Tobacco Use/Currently Using : Yes Tobacco Use/Advised to Quit : Yes Exposure to Tobacco Smoke : Patient smokes Smoking Status : Current every day smoker DANILO ACUNA 06/03/2014 15:15 TRESTLE MECHANIC Tobacco Use Grid Type : Cigarettes Cigarette Use Packs/Day : 0.4 DANILO ACUNA 06/03/2014 15:15 TRESTLE MECHANIC Caffeine Use Grid Caffeine Use : Current Type : Coffee, Soft drinks Frequency : Daily Amount : 2 pots DANILO ACUNA 06/03/2014 15:15 TRESTLE MECHANIC Recreational Drug Use Grid Drug Use : None DANILO ACUNA 06/03/2014 15:15 TRESTLE MECHANIC Psychosocial Domestic Abuse Concerns : None Marital Status : Single Years of Marriage : Chris Occupation : [employer] 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 DANILO ACUNA 06/03/2014 15:15 TRESTLE MECHANIC Genetic/Infection Screen Infection History : History of Varicella or Immunized for Varicella DANILO ACUNA 06/03/2014 15:15 TRESTLE MECHANIC Ethnic Background Grid : Self, Baby's father DANILO ACUNA 06/03/2014 15:15 TRESTLE MECHANIC Other : Self (Comment: Holly adopted-limited history [DANILO ACUNA 06/03/2014 15:15 TRESTLE MECHANIC] ) DANILO ACUNA 06/03/2014 15:15 TRESTLE MECHANIC Genetic Disorders Reviewed and Not Applicable : Yes DANILO ACUNA 06/03/2014 15:15 TRESTLE MECHANIC Antepartum Note Risk Factors, Antepartum Current Preg : Tobacco use during Antepartum Note : H/O seizures-on medication. Last seizure 2 months ago. Denies questions or concerns. DANILO ACUNA 06/03/2014 15:37 TRESTLE MECHANIC Education Individuals Taught : Patient Barriers to Learning : None evident Teaching Method : Explanation, Printed materials DANILO ACUNA 06/03/2014 15:37 TRESTLE MECHANIC Alcohol : Verbalizes understanding Anxiety/Depression Symptoms : Verbalizes understanding Childbirth Classes : Verbalizes understanding Domestic Violence : Verbalizes understanding Environmental/Work Hazards : Verbalizes understanding Exercise : Verbalizes understanding Expected Course of Care : Verbalizes understanding HIV Testing : Verbalizes understanding Medication Use : Verbalizes understanding Nutrition Counseling : Verbalizes understanding Recreational Drugs : Verbalizes understanding Risk Factors Identified : Verbalizes understanding Routine Tests : Verbalizes understanding Seat Belt Use : Verbalizes understanding Sexual Activity : Verbalizes understanding Smoking Counseling : Verbalizes understanding Tobacco Assessment : Verbalizes understanding Toxoplasmosis Precautions : Verbalizes understanding Travel : Verbalizes understanding Ultrasound : Verbalizes understanding Circumcision : Verbalizes understanding DANILO ACUNA - 06/03/2014 15:37 TRESTLE MECHANIC Source: [facility] POWERCHART Document Id: [id number] TRESTLE MECHANIC!0 TLE MECHANIC documented in this encounter Plan of Treatment Not on filedocumented as of this encounter Procedures Procedure Name Priority Date/Time Associated Diagnosis Comme nts URINALYSIS, ROUTINE Routine 06/03/2014 4:01 PM Re sults for this TRESTLE MECHANIC procedure are i n the results section. BACTERIAL CULTURE, Routine 06/03/2014 4:01 PM Res ults for this AEROBIC, URINE TRESTLE MECHANIC procedure are in the results section. ABO GROUPING, B Routine 06/03/2014 3:49 PM Result s for this TRESTLE MECHANIC procedure are i n the results section. PROFILE II Routine 06/03/2014 3:49 PM Re sults for this WITHOUT CBC, TRESTLE MECHANIC procedure are i n B/SERUM the results section. HIV-1/-2 AG AND AB Routine 06/03/2014 3:49 PM Res ults for this SCREEN TRESTLE MECHANIC procedure are i n the results section. AUTOMATED Routine 06/03/2014 3:49 PM Results f or this DIFFERENTIAL, B TRESTLE MECHANIC procedure ar e in the results section. CBC WITH Routine 06/03/2014 3:49 PM Results f or this DIFFERENTIAL, B TRESTLE MECHANIC procedure ar e in the results section. ANTIBODY SCREEN, B Routine 06/03/2014 3:49 PM Res ults for this TRESTLE MECHANIC procedure are i n the results section. documented in this encounter Results (ABNORMAL) Urinalysis, Routine (06/03/2014 4:01 PM TRESTLE MECHANIC) [facility] Method Time Signature Source Clean Void POWERCHART Urine HXUr Color STRAW POWERCHART Clarity Clear POWERCHART Glucose Negative MGDL POWERCHART HXBILIRUBIN Negative POWERCHART Ketones, QL(U) 40 (A) MGDL POWERCHART Specific >=1.030 (A) POWERCHART [place], POCT, U pH, POCT, Urine 6.0 POWERCHART Protein, Ur, Dip Negative MGDL POWERCHART Urobilinogen 0.2 MGDL POWERCHART HXNITRITE Negative POWERCHART HXBLOOD Negative POWERCHART Leukocyte Negative POWERCHART Esterase Specimen (Source) Anatomical Collection Method Collection Time Re ceived Time Location / / Volume Laterality Urine 06/03/2014 4:01 PM TRESTLE MECHANIC Jessy Spears M.D. LAB URINE ORDERABLES Performing Organization Address [facility] Phon e Number POWERCHART Bacterial Culture, Aerobic, Urine (06/03/2014 4:01 PM TRESTLE MECHANIC) [facility] gist Method Time Signature Bacterial POWERCHART Culture, Aerobic, Urine HXPre No growth POWERCHART HXFinal <10,000 POWERCHART cfu/mL Mixed dung (multiple species present) HXFinal No further POWERCHART work-up. Specimen (Source) Anatomical Collection Method Collection Time Re ceived Time Location / / Volume Laterality Urine, Clean 06/03/2014 4:01 PM Catch TRESTLE MECHANIC Comment: P Jessy Spears M.D. LAB MICROBIOLOGY - GENERAL O RDERABLES Performing Organization Address [facility] Phon e Number POWERCHART Antibody Screen (06/03/2014 3:49 PM TRESTLE MECHANIC) athologist Signature Antibody Negative POWERCHART Screen Comment: Test Performed by: [address] [address] Lab oratory Director: Erwin Sena M.D. Specimen (Source) Anatomical Collection Method Collection Time Re ceived Time Location / / Volume Laterality 06/03/2014 3:49 PM TRESTLE MECHANIC Jessy Spears M.D. LAB BLOOD BANK TEST ORDERABL ES Performing Organization Address [facility] Phon e Number POWERCHART Grouping and Rh-Moy FLIP, see #[id number] (06/03/2014 3:49 PM TRESTLE MECHANIC) [facility] Method Time Signature HX Grouping B Positive POWERCHART and Rh Specimen (Source) Anatomical Collection Method Collection Time Re ceived Time Location / / Volume Laterality 06/03/2014 3:49 PM TRESTLE MECHANIC Jessy Spears M.D. LAB BLOOD BANK TEST ORDERABL ES Performing Organization Address [facility] Code Phon e Number POWERCHART Automated Differential (06/03/2014 3:49 PM TRESTLE MECHANIC) athologist Signature Absolute 6.54 1.70 - POWERCHART Neutrophils 7.00 109L Lymphocytes 2.63 0.90 - POWERCHART 2.90 X109L Monocytes 0.80 0.30 - POWERCHART 0.90 X109L Eosinophils 0.06 0.05 - POWERCHART 0.50 X109L Absolute 0.04 0.00 - POWERCHART Basophil 0.30 X109L Specimen Anatomical Collection Method Collection Time Receive d Time (Source) Location / / Volume Laterality Blood 06/03/2014 3:49 PM 4 3:49 TRESTLE MECHANIC PM TRESTLE MECHANIC Jessy Spears M.D. LAB BLOOD ADD-ON Performing Organization Address City/State/ZIP Code Phon e Number POWERCHART CBC with Differential (06/03/2014 3:49 PM TRESTLE MECHANIC) athologist Signature Leukocytes 10.1 3.4 - 10.5 POWERCHART X109L Erythrocytes 4.45 3.90 - 5.03 POWERCHART S2499G Hemoglobin 12.5 12.0 - 15.5 POWERCHART GDL Hematocrit 37.9 34.9 - 44.5 POWERCHART MCV 85.2 82.0 - 98.0 POWERCHART FL HX RDW 12.6 11.9 - 15.5 POWERCHART Platelet Count 314 150 - 450 POWERCHART X109L Specimen (Source) Anatomical Collection Method Collection Time Re ceived Time Location / / Volume Laterality Blood 06/03/2014 3:49 PM TRESTLE MECHANIC Jessy Spears M.D. LAB BLOOD ADD-ON Performing Organization Address [facility] Phon e Number POWERCHART Profile II without CBC/Serum (06/03/2014 3:49 PM TRESTLE MECHANIC) athologist Signature HBs Antigen, S Negative Negative POWERCHART Comment: Test Performed by: [facility] [address] [place] [address] Drain Tile Press Operator: Radha Hayes HX Rubella IgG-Trinity Positive POWERCHART Comment: Results suggest response to immunization or prior exposure to the virus. REFERENCE VALUE------ Vaccinated: Positive (>=1.0 AI) Unvaccinated: Negative (<=0.7 AI) Rubella IgG Antibody Index 1.2 POW ERCHART Comment: Test Performed by: [facility] [address] [place] [address] Drain Tile Press Operator: Radha Hayes Syphilis IgG Ab, S Negative Negative POWERCHART Comment: No serologic evidence of exposure to syp hilis. Test Performed by: [facility] [place] [address] Drain Tile Press Operator: Radha Hayes Specimen (Source) Anatomical Collection Method Collection Time Re ceived Time Location / / Volume Laterality Blood 06/03/2014 3:49 PM TRESTLE MECHANIC Jessy Spears M.D. LAB BLOOD NON ADD-ON Performing Organization Address City/State/ZIP Code Phon e Number POWERCHART HIV-1/-2 Ag and Ab Screen (06/03/2014 3:49 PM TRESTLE MECHANIC) P athologist Signature HIV-1/-2 Negative Negative POWERCHART Antibody Comment: Negative result does not rule out HIV in fection. If acute HIV infection is suspected in a hi gh-risk individual, submit plasma specimen for H IV-1 RNA quantification test (HIVQU) and/or HIV-2 DNA/RNA test (FHV2Q). Test Performed by: [facility] [address] [place] [address] Drain Tile Press Operator: Radha Hayes Specimen (Source) Anatomical Collection Method Collection Time Re ceived Time Location / / Volume Laterality Blood 06/03/2014 3:49 PM TRESTLE MECHANIC Jessy Spears M.D. LAB MICROBIOLOGY - BLOOD ORD ERABLES Performing Organization Address City/State/ZIP Code Phon e Number POWERCHART documented in this encounter Visit Diagnoses Not on filedocumented in this encounter
--- OUTSIDE RECORDS SUMMARY | 2022-02-22 12:39 | XMS_ITS | Encounter Summary ---
:1985 Author Organization [facility] Address [address] [place] [address] Care Team Providers Name Role Phone Unavailable Primary Care Provider Unavailable Encounter Details Date Type Department Care Team Description 06/03/2014 Hospital Encounter HX [facility] Chidi Spears M. D. Social History Tobacco [...] at Date Recorded Female 06/09/2021 2:09 PM APPLICATIONS SPECIALIST documented as of this encounter Plan of Treatment Not on filedocumented as of this encounter Visit Diagnoses Not on filedocumented in this encounter
--- OUTSIDE RECORDS SUMMARY | 2022-02-22 12:39 | XMS_ITS | Encounter Summary ---
:1985 Author Organization [facility] Address [address] [place] [address] Care Team Providers Name Role Phone Unavailable Primary Care Provider Unavailable Encounter Details Date Type Department Care Team Description 11/05/2014 Hospital Encounter HX NO MAPPING Chidi Spears M.D. Social History Tobacco Use Types Packs/Day [...] at Date Recorded Female 06/09/2021 2:09 PM OYSTER CULTIVATOR documented as of this encounter Miscellaneous Notes Miscellaneous - Conversion, Historical Provider Ser - 11/05/2014 11:59 PM CDT Coding Summary-Paper Based CODING DATE: 11/13/2014 FINAL [facility] STATUS: * Discharged to Home or Self Care PAYOR: Medicaid ADMIT DX: REASON FOR VISIT DX: FINAL DX: PRINCIPAL: V22.1 Supervision of Other Normal SECONDARY: PROCEDURES DOCTOR NAME DATE NOTE: The code number assigned matches the documented diagnosis and / or procedure in the patient's chart. However, the narrative phrase printed from the coding software may appear abbreviated, or result in slightly different terminology. Coded By: VIKASH VEGAS Date Saved: 11/13/2014 06:00 pm Source: [facility] POWERCHART Document Id: [id number] documented in this encounter Plan of Treatment Not on filedocumented as of this encounter Visit Diagnoses Not on filedocumented in this encounter
--- OUTSIDE RECORDS SUMMARY | 2022-02-22 12:39 | XMS_ITS | Encounter Summary ---
:1985 Author Organization [facility] Address [address] [place] [address] Care Team Providers Name Role Phone Unavailable Primary Care Provider Unavailable Encounter Details Date Type Department Care Team Description 05/12/2014 Hospital Encounter HX [facility] Jessy Douglas M.D. 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 - 05/12/2014 1:50 PM CDT [id number] HISTORY OF PRESENT ILLNESS Preet is a 29-year-old, 3, para 1, who did not keep her appointment with Maddie Merritt for her appointment. She is 10 weeks by dates, and we did an ultrasound today because of a history of a previous ectopic with her last and to verify intrauterine localization. DIAGNOSTICS Vaginal ultrasound did show a viable intrauterine at 10 weeks which is consistent with hermenstrual dates. IMPRESSION/REPORT/PLAN Intrauterine . PLAN: Plan is for the patient to see Maddie Merritt for her education. Also I did discuss the fact that I have asked her to call her primary care doctor because she is on and a antiseizure medication, and advise him that she is to see if there is other medications that they would recommend changing to. The other thought is that she will see a neurologist. This had been suggested by her primary care doctor, and if that is the case, I want her to get that appointment in regards to the possibility of changing her seizure medication. She did say that she took this seizure medication with previous pregnancies but I told her that is not a guarantee of an absence of affect and if thereis that a safer seizure medicine that the neurologist would recommend that I would prefer that she obtain that recommendation. Approximately 15 minutes of counseling in addition to the ultrasound associated this visit. The patient is also to take her vitamins on a daily basis Jessy Spears M.D./cathy Electronically Signed By: JESSY SPEARS MD On: 05/14/2014 08:42 AM Source: [facility] MHSDOLBEYNONRADSYS Document Id: [id number] documented in this encounter Miscellaneous Notes Telephone Encounter - Henrietta Sheffield, R.N. - 06/05/2014 5:02 PM COMMUNITY SERVICE WORKER PNV not covered Document Contains Addenda Addendum by HENRIETTA SHEFFIELD on 10 June 2014 14:50 COMMUNITY SERVICE WORKER Naomi calls from [facility] stating she received a order for the rx that is not covered -- Informed her message from PCP nurse was to order the PNV that is covered per her insurance - Modified by and Electronically Signed by: HENRIETTA SHEFFIELD On: 06/10/2014 02:50 PM Addendum by NIKI HADLEY on 09 June 2014 11:23:30 COMMUNITY SERVICE WORKER Pharmacy contacted and Rx will be ordered per her insurance. Addendum by BENJAMIN HERNANDEZ RN on 06 June 2014 16:45 COMMUNITY SERVICE WORKER Pharmacy waiting for response to chewable vits not being covered by insurance- please advise Modified by and Electronically Signed by: BENJAMIN HERNANDEZ RN On: 06/06/2014 04:45 PM Addendum by ALEXIS GUTIERREZ on 06 June 2014 08:10:14 COMMUNITY SERVICE WORKER From: ALEXIS GUTIERREZ (LORI Spears Nurse) To: JESSY SPEARS MD; Sent: 06/06/2014 08:10:14 COMMUNITY SERVICE WORKER Subject: FW: PNV not covered From: HENRIETTA SHEFFIELD [facility] To: LORI Spears Nurse; Sent: 06/05/2014 17:02:57 COMMUNITY SERVICE WORKER Subject: PNV not covered Caller is: ( ) Patient ( ) Mother ( ) Father ( ) Spouse ( ) Daughter ( ) Son ( xx- [facility] ) Pharmacy ( ) Other: Physician: Tory Patient MRN #: Reason for Call: S: PNV not covered B: Order received for PNV 19 chewables which is not covered by [facility] A: pharmacy states would cover Preplus tab which would be 27mg Fe and 1 mg Folic Acid R: Please call [facility] or send a new rx - [phone] Message: Advice/Action: Source used: ( ) Verbalizes understanding [...] back cell phone number ( ) Source: [facility] POWERCHART Document Id: [id number] UNITY SERVICE WORKER Miscellaneous - Jessy Spears M.D. - 05/12/2014 2:38 PM CDT Ambulatory Patient Summary [address] [id number] Visit Information Name: PREET TURK [facility] Number: [id number] Current Date: 05/12/2014 14:38:04 Physicians Attending Provider: JESSY SPEARS MD Primary [...] Oral, two times a day with food multivitamin, ( Plus oral tablet) 1 Tablet(s), Oral, once a day Stop Taking the Following Medications: Medication list as of 05-12-14 14:38 Attention: If you have any medications at [...] Electronically Signed By: JESSY SPEARS MD Signed On:12-MAY-2014 14:38:00 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 Your Goals/Additional instructions: Source: [facility] POWERCHART Document Id: [id number] Miscellaneous - Jessy Spears M.D. - 05/12/2014 2:38 PM CDT Ambulatory Discharge Medication List [address] [id number] Visit Information Name: PREET TURK [facility] Number: [id number] Visit Date: 05/12/2014 14:38:02 Attending Provider: JESSY SPEARS MD Primary Care [...] Oral, two times a day with food multivitamin, ( Plus oral tablet) 1 Tablet(s), Oral, once a day Stop Taking the Following Medications: Medication list as of 05-12-14 14:38 Attention: If you have any medications at [...] Electronically Signed By: JESSY SPEARS MD Signed On:12-MAY-2014 14:38:00 Additional Information: Source: [facility] POWERCHART Document Id: [id number] Miscellaneous - Conversion, Historical Provider Ser - 05/12/2014 2:09 PM CDT Adult Helicopter Officer Intake/History Adult Helicopter Officer Intake/History Entered On: 05/12/2014 14:12 CDT Performed On: 05/12/2014 14:09 CDT by NIKI HADLEY Intake Chief Complaint : NOB 3 Para 1 LMP Date : 03/01/2014 Ambulatory Intake Additional Information : 10 1/7 week gestation Systolic Blood Pressure : 106 mmHg Diastolic Blood Pressure : 62 mmHg NIBP Mean : 77 mmHg BP Location : Left upper extremity Blood Pressure Cuff Size : Regular Height : 162 cm(Converted to: 5 ft 4 inch(es), 64 inch(es)) Actual Weight : 59.7 kg(Converted to: 131 lb 10 oz) Dosing Weight Clinic : 59.7 kg Clinic BSA : 1.64 Body Mass Index : 22.75 kg/m2 NIKI HADLEY - 05/12/2014 14:09 CDT General Info Information Given By : Patient Languages : Slovak Is Patient Female and 13-50 no hysterectomy : Yes Status : Confirmed positive Are you ? : No NIKI HADLEY - 05/12/2014 14:09 CDT Subjective Pain Symptoms : No NIKI HADLEY 05/12/2014 14:09 CDT Dependent Habits Tobacco Use/Currently Using : Yes Exposure to Tobacco Smoke : Patient smokes Smoking Status : Current every day smoker NIKI HADLEY 05/12/2014 14:09 CDT Tobacco Use Grid Type : Cigarettes Cigarette Use Packs/Day : 0.5 NIKI HADLEY 05/12/2014 14:09 CDT Caffeine Use Grid Caffeine Use : Current Type : Coffee, Soft drinks Frequency : Daily Amount : 2 pots NIKI HADLEY 05/12/2014 14:09 CDT Recreational Drug Use Grid Drug Use : None NIKI HADLEY 05/12/2014 14:09 CDT ID Screen Drug Resistant Organism : No Travel Within Last 21 Days : NIKI Feldman 05/12/2014 14:09 CDT Source: [facility] Document Id: [id number] CDT!43 documented in this encounter Plan of Treatment Not on filedocumented as of this encounter Visit Diagnoses Not on filedocumented in this encounter
--- OUTSIDE RECORDS SUMMARY | 2022-02-22 12:39 | XMS_ITS | Encounter Summary ---
:1985 Author Organization [facility] Address [address] [place] [address] Care Team Providers Name Role Phone Unavailable Primary Care Provider Unavailable Encounter Details Date Type Department Care Team Description 11/05/2014 Hospital Encounter HX [facility] Jessy Douglas M.D. 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 - 11/05/2014 10:04 AM CDT Ambulatory Patient Summary [facility] [address] [place], [place] [id number] Visit Information Name: PREET TURK [facility] Number: [id number] Current Date: 11/05/2014 10:04:48 Physicians Attending Provider: JESSY SPEARS MD Primary [...] the Following Medications: Medication list as of 11-05-14 10:04 Attention: If you have any medications at [...] Electronically Signed By: JESSY SPEARS MD Signed On:05-NOV-2014 10:04:43 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 Epilepsy NOS, not intractable Active 01/06/2012 Tobacco dependence Active Nephrolithiasis NOS Active Adopted Active Alcoholism in Family Active 01/06/12 Mother Other High-Risk Active 10/10/2012 Active 03/01/2014 Exam Active Your Upcoming Appointments Date Time Location Provider 11/12/2014 10:00 [facility] CEREAL MILLER Jessy Spears MD 11/19/2014 10:00 [facility] CEREAL MILLER Jessy Spears MD 11/26/2014 10:00 [facility] CEREAL MILLER Jessy Spears MD 12/03/2014 10:00 [facility] CEREAL MILLER Jessy Spears MD 12/10/2014 10:00 [facility] CEREAL MILLER Jessy Spears MD Attention: Contact your local Clinic if further appointment detail needed. Your Goals/Additional instructions: Source: [facility] POWERCHART Document Id: [id number] Miscellaneous - Jessy Spears M.D. - 11/05/2014 10:04 AM CDT Ambulatory Discharge Medication List [address] [id number] Visit Information Name: PREET TURK [facility] Number: [id number] Visit Date: 11/05/2014 10:04:46 Attending Provider: JESSY SPEARS MD Primary Care [...] the Following Medications: Medication list as of 11-05-14 10:04 Attention: If you have any medications at [...] Electronically Signed By: JESSY SPEARS MD Signed On:05-NOV-2014 10:04:43 Additional Information: Source: [facility] POWERCHART Document Id: [id number] Miscellaneous - Conversion, Historical Provider Ser - 11/05/2014 9:53 AM CDT Adult Country Singer Intake/History Adult Country Singer Intake/History Entered On: 11/05/2014 9:54 CDT Performed On: 11/05/2014 9:53 CDT by NIKI HADLEY Intake Chief Complaint : OB See ACOG LMP Date : 03/01/2014 Ambulatory Intake Additional Information : 35 3/7 week gestation Systolic Blood Pressure : 110 mmHg Diastolic Blood Pressure : 62 mmHg NIBP Mean : 78 mmHg BP Location : Left upper extremity Blood Pressure Cuff Size : Regular Height : 162 cm(Converted to: 5 ft 4 inch(es), 64 inch(es)) Actual Weight : 63.9 kg(Converted to: 140 lb 14 oz) Dosing Weight Clinic : 63.9 kg Clinic BSA : 1.7 Body Mass Index : 24.35 kg/m2 NIKI HADLEY - 11/05/2014 9:53 CDT General Info Information Given By : Patient Languages : Kinyarwanda Is Patient Female and 13-50 no hysterectomy : Yes Status : Confirmed positive Are you ? : No NIKI HADLEY 11/05/2014 9:53 CDT Subjective Pain Symptoms : No NIKI HADLEY 11/05/2014 9:53 CDT Dependent Habits Tobacco Use/Currently Using : Yes Exposure to Tobacco Smoke : Patient smokes Smoking Status : Current every day smoker NIKI HADLEY 11/05/2014 9:53 CDT Tobacco Use Grid Type : Cigarettes Cigarette Use Packs/Day : 0.4 NIKI HADLEY 11/05/2014 9:53 CDT Caffeine Use Grid Caffeine Use : Current Type : Coffee, Soft drinks Frequency : Daily Amount : 2 pots NIKI HADLEY 11/05/2014 9:53 CDT Recreational Drug Use Grid Drug Use : None NIKI HADLEY 11/05/2014 9:53 CDT ID Screen Drug Resistant Organism : No Travel Within Last 21 Days : No Contact with someone with Ebola : No NIKI HADLEY 11/05/2014 9:53 CDT Source: [facility] [employer] Document Id: [id number] CDT!44 documented in this encounter Plan of Treatment Not on filedocumented as of this encounter Procedures Procedure Name Priority Date/Time Associated Diagnosis Comme nts HXSTREP GROUP B BY Routine 11/05/2014 11:45 AM Re sults for this PCR CDT procedure are i n the results section. documented in this encounter Results HXSTREP GROUP B BY PCR (11/05/2014 11:45 AM CDT) [facility] gist Method Time Signature HXStrep Group POWERCHART B by PCR HXFinal Negative for POWERCHART Group B Strep by PCR. Specimen (Source) Anatomical Collection Method Collection Time Re ceived Time Location / / Volume Laterality Vaginal/Rectum 11/05/2014 11:45 AM CDT Jessy Spears M.D. LAB HISTORICAL ORDERS Performing Organization Address City/State/ZIP Code Phon e Number POWERCHART documented in this encounter Visit Diagnoses Not on filedocumented in this encounter
--- OUTSIDE RECORDS SUMMARY | 2022-02-22 12:39 | XMS_ITS | Encounter Summary ---
:1985 Author Organization [facility] Address [address] [place] [address] Care Team Providers Name Role Phone Unavailable Primary Care Provider Unavailable Encounter Details Date Type Department Care Team Description 10/08/2014 Hospital Encounter HX [facility] Jessy Douglas M.D. Social History [...] or relatives? How often do you attend mosque or 1 to 4 times per year 05/18 muslim services? 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 - 10/08/2014 10:15 AM CDT Ambulatory Patient Summary [facility] [address] [place], [place] [id number] Visit Information Name: PREET TURK [facility] Number: [id number] Current Date: 10/08/2014 10:15:41 Physicians Attending Provider: JESSY SPEARS MD Primary Care Provider: ANUPAM BOONE MD SANDHYAAB PREET has been given the following list [...] the Following Medications: Medication list as of 10-08-14 10:15 Attention: If you have any medications at [...] Electronically Signed By: JESSY SPEARS MD Signed On:08-OCT-2014 10:15:36 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 Epilepsy NOS, not intractable Active 01/06/2012 Tobacco dependence Active Nephrolithiasis NOS Active Adopted Active Alcoholism in Family Active 01/06/12 Mother Other High-Risk Active 10/10/2012 Active 03/01/2014 Exam Active Your Upcoming Appointments Date Time Location Provider 10/22/2014 10:00 [facility] PROCESS SAFETY ENGINEER Jessy Spears MD 11/05/2014 10:00 [facility] PROCESS SAFETY ENGINEER Jessy Spears MD 11/12/2014 10:00 [facility] PROCESS SAFETY ENGINEER Jessy Spears MD 11/19/2014 10:00 [facility] PROCESS SAFETY ENGINEER Jessy Spears MD 11/26/2014 10:00 [facility] PROCESS SAFETY ENGINEER Jessy Spears MD 12/03/2014 10:00 [facility] PROCESS SAFETY ENGINEER Jessy Spears MD 12/10/2014 10:00 [facility] PROCESS SAFETY ENGINEER Jessy Spears MD Attention: Contact your local Clinic if further appointment detail needed. Your Goals/Additional instructions: Source: [facility] POWERCHART Document Id: [id number] Miscellaneous - Jessy Spears M.D. - 10/08/2014 10:15 AM CDT Ambulatory Discharge Medication List [facility] [address] [place] [id number] Visit Information Name: PREET TURK [facility] Number: [id number] Visit Date: 10/08/2014 10:15:39 Attending Provider: JESSY SPEARS MD Primary Care [...] the Following Medications: Medication list as of 10-08-14 10:15 Attention: If you have any medications at [...] Electronically Signed By: JESSY SPEARS MD Signed On:08-OCT-2014 10:15:36 Additional Information: Source: [facility] POWERCHART Document Id: [id number] Miscellaneous - Bryan Mehta - 10/08/2014 9:53 AM CDT Adult Crossing Watchman Intake/History Adult Crossing Watchman Intake/History Entered On: 10/08/2014 9:58 CDT Performed On: 10/08/2014 9:53 CDT by BRYAN MEHTA Intake Chief Complaint : ob ck-see acog-31 3/7 weeks LMP Date : 03-01-14 Systolic Blood Pressure : 98 mmHg Diastolic Blood Pressure : 58 mmHg NIBP Mean : 71 mmHg BP Location : Left upper extremity Blood Pressure Cuff Size : Regular Height : 162 cm(Converted to: 5 ft 4 inch(es), 64 inch(es)) Actual Weight : 64.6 kg(Converted to: 142 lb 7 oz) Dosing Weight Clinic : 64.6 kg Clinic BSA : 1.7 Body Mass Index : 24.62 kg/m2 BRYAN MEHTA - 10/08/2014 9:53 CDT General Info Information Given By : Patient Preferred Communication Mode : Verbal Languages : New Zealander Is Patient Female and 13-50 no hysterectomy : Yes Status : Confirmed positive Are you ? : No BRYAN MEHTA - 10/08/2014 9:53 CDT Subjective Pain Symptoms : No BRYAN MEHTA - 10/08/2014 9:53 CDT Dependent Habits Tobacco Use/Currently Using : Yes Exposure to Tobacco Smoke : Patient smokes Smoking Status : Current every day smoker BRYAN MEHTA - 10/08/2014 9:53 CDT Tobacco Use Grid Type : Cigarettes Cigarette Use Packs/Day : 0.4 BRYAN MEHTA - 10/08/2014 9:53 CDT Caffeine Use Grid Caffeine Use : Current Type : Coffee, Soft drinks Frequency : Daily Amount : 2 pots BRYAN MEHTA - 10/08/2014 9:53 CDT Recreational Drug Use Grid Drug Use : None BRYAN MEHTA - 10/08/2014 9:53 CDT ID Screen Drug Resistant Organism : No Travel Within Last 21 Days : No Contact with someone with Ebola : No BRYAN MEHTA - 10/08/2014 9:53 CDT Source: [employer] Document Id: [id number] CDT!44 documented in this encounter Plan of Treatment Not on filedocumented as of this encounter Visit Diagnoses Not on filedocumented in this encounter
--- OUTSIDE RECORDS SUMMARY | 2022-02-22 12:39 | XMS_ITS | Encounter Summary ---
:1985 Author Organization [facility] Address [address] [place] [address] Care Team Providers Name Role Phone Unavailable Primary Care Provider Unavailable Encounter Details Date Type Department Care Team Description 09/24/2014 Hospital Encounter HX [facility] Chidi Douglas M.D. 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 documented as of this encounter Last Filed Vital Signs Vital Sign Reading Time Taken Comments Blood Pressure 104/60 09/24/2014 9:59 AM CDT Pulse - - Temperature - - Respiratory Rate - - Oxygen Saturation - - Inhaled Oxygen Concentration - - Weight 63.5 kg (139 lb 15.9 oz) 09/24/2014 9:59 AM CDT Height 162 cm (5' 3.78) 09/24/2014 9:59 AM CDT Body Mass Index 24.2 09/24/2014 9:59 AM CDT documented in this encounter Miscellaneous Notes Miscellaneous - Richelle Gates L.P.[employer] - 09/24/2014 9:59 AM CDT Adult Rake Operator Intake/History Adult Rake Operator Intake/History Entered On: 09/24/2014 10:02 CDT Performed On: 09/24/2014 9:59 CDT by RICHELLE GATES Intake Chief Complaint : ob check LMP Date : 03-01-2014 Systolic Blood Pressure : 104 mmHg Diastolic Blood Pressure : 60 mmHg NIBP Mean : 75 mmHg Height : 162 cm(Converted to: 5 ft 4 inch(es), 64 inch(es)) Actual Weight : 63.5 kg(Converted to: 140 lb 0 oz) Dosing Weight Clinic : 63.5 kg Clinic BSA : 1.69 Body Mass Index : 24.2 kg/m2 RICHELLE GATES - 09/24/2014 9:59 CDT General Info Information Given By : Patient Languages : Thai Is Patient Female and 13-50 no hysterectomy : Yes Status : Confirmed positive Are you ? : No RICHELLE GATES - 09/24/2014 9:59 CDT Subjective Pain Symptoms : No RICHELLE GATES - 09/24/2014 9:59 CDT Dependent Habits Tobacco Use/Currently Using : Yes Exposure to Tobacco Smoke : Patient smokes Smoking Status : Current every day smoker RICHELLE GATES - 09/24/2014 9:59 CDT Tobacco Use Grid Type : Cigarettes Cigarette Use Packs/Day : 0.4 RICHELLE GATES - 09/24/2014 9:59 CDT Caffeine Use Grid Caffeine Use : Current Type : Coffee, Soft drinks Frequency : Daily Amount : 2 pots RICHELLE GATES - 09/24/2014 9:59 CDT Recreational Drug Use Grid Drug Use : None RICHELLE GATES - 09/24/2014 9:59 CDT ID Screen Drug Resistant Organism : No Travel Within Last 21 Days : No Contact with someone with Ebola : No RICHELLE GATES - 09/24/2014 9:59 CDT Source: [facility] [employer] Document Id: [id number] CDT!41 documented in this encounter Plan of Treatment Not on filedocumented as of this encounter Visit Diagnoses Not on filedocumented in this encounter
--- OUTSIDE RECORDS SUMMARY | 2022-02-22 12:39 | XMS_ITS | Encounter Summary ---
:1985 Author Organization [facility] Address [address] [place] [address] Care Team Providers Name Role Phone Unavailable Primary Care Provider Unavailable Encounter Details Date Type Department Care Team Description 09/10/2014 Hospital Encounter HX [facility] Jessy Douglas M.D. Social History [...] at Date Recorded Female 06/09/2021 2:09 PM RING SEWER documented as of this encounter Last Filed Vital Signs Vital Sign Reading Time Taken Comments Blood Pressure 110/58 09/10/2014 10:41 AM RING SEWER Pulse - - Temperature - - Respiratory Rate - - Oxygen Saturation - - Inhaled Oxygen Concentration - - Weight 62 kg (136 lb 11 oz) 09/10/2014 10:41 AM RING SEWER Height 162 cm (5' 3.78) 09/10/2014 10:41 AM RING SEWER Body Mass Index 23.62 09/10/2014 10:41 AM RING SEWER documented in this encounter Miscellaneous Notes Miscellaneous - Jessy Spears M.D. - 09/22/2014 6:59 AM CDT RE: *The Coding Query From: JESSY SPEARS MD To: MARY CASTELAN; Sent: 09/22/2014 06:59:33 CDT Subject: RE: *The Coding Query Mary, This documentation is in the electronic OB form. Jessy Combs From: MARY CASTELAN To: JESSY SPEARS MD; Cc: YESICA NIETO; Sent: 09/19/2014 07:43:27 RING SEWER Subject: *The Coding Query Dr. Spears, as of today I cannot see dictation from you for an Office Visit for DOS 09-10-2014 did you see patient, when so please dictated a note Thank youMary Source: [facility] POWERCHART Document Id: [id number] Electronically signed by Kemal [facility] Folder Seamer [id number] at 12/12/2016 1:14 AM CDT Miscellaneous - Jessy Spears M.D. - 09/10/2014 2:08 PM CST Ambulatory Patient Summary [facility] [address] [place] [id number] Visit Information Name: PREET TURK [facility] Number: [id number] Current Date: 09/10/2014 14:08:01 Physicians Attending Provider: JESSY SPEARS MD Primary Care Provider: ANUPAM BOONE MD ARTUR TURKANDRA has been given the following list of [...] the Following Medications: Medication list as of 09-10-14 14:08 Attention: If you have any medications at [...] Electronically Signed By: JESSY SPEARS MD Signed On:10-SEP-2014 14:07:57 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 Epilepsy NOS, not intractable Active 01/06/2012 Tobacco dependence Active Nephrolithiasis NOS Active Adopted Active Alcoholism in Family Active 01/06/12 Mother Other High-Risk Active 10/10/2012 Active 03/01/2014 Exam Active Your Upcoming Appointments Date Time Location Provider 09/24/2014 10:00 [facility] AIRCRAFT SEAT UPHOLSTERERJessy Mercado MD 10/08/2014 10:00 [place] [employer] SE[employer] UPHOLSTERERJessy Mercado MD 10/22/2014 10:00 [place] [employer] SE[employer] UPHOLSTERERJessy Mercado MD 11/05/2014 10:00 [facility] AIRCRAFT SEAT UPHOLSTERER Jessy Spears MD 11/12/2014 10:00 [facility] AIRCRAFT SEAT UPHOLSTERER Jessy Spears MD 11/19/2014 10:00 [facility] AIRCRAFT SEAT UPHOLSTERER Jessy Spears MD 11/26/2014 10:00 [facility] AIRCRAFT SEAT UPHOLSTERER Jessy Spears MD 12/03/2014 10:00 [place] [employer] SEAT UPHOLSTERER Jessy Spears MD 12/10/2014 10:00 [facility] AIRCRAFT SEAT UPHOLSTERER Jessy Spears MD Attention: Contact your local Clinic if further appointment detail needed. Your Goals/Additional instructions: Source: [facility] POWERCHART Document Id: [id number] SEWER Miscellaneous - Jessy Spears M.D. - 09/10/2014 2:08 PM CST Ambulatory Discharge Medication List [facility] [address] [place] [id number] Visit Information Name: PREET TURK [facility] Number: [id number] Visit Date: 09/10/2014 14:08:00 Attending Provider: JESSY SPEARS MD Primary Care [...] the Following Medications: Medication list as of 09-10-14 14:08 Attention: If you have any medications at [...] Electronically Signed By: JESSY SPEARS MD Signed On:10-SEP-2014 14:07:57 Additional Information: Source: [facility] POWERCHART Document Id: [id number] SEWER Miscellaneous - Jessy Spears M.D. - 09/10/2014 11:00 AM CST Custom Result Letter 10 September 2014 PREET TURK [address] [place] [id number] Dear PERET TURK, You were examined in my office on: 09/10/2014 I Return to Work date: Shakeel desires not to work until after her delivery and I concur. Sincerely, JESSY SPEARS [address] [place] [id number] Electronic Signature Electronically Signed By: JESSY SPEARS MD On: 10 September 2014 This document has images extracted. Source: [facility] POWERCHART Document Id: [id number] Electronically signed by Conversion, [facility] Folder Seamer [id number] at 12/12/2016 1:14 AM CDT Miscellaneous - Conversion, Historical Provider Ser - 09/10/2014 10:41 AM RING SEWER Adult Pattern Repair Person Intake/History Adult Pattern Repair Person Intake/History Entered On: 09/10/2014 10:43 RING SEWER Performed On: 09/10/2014 10:41 RING SEWER by NIKI HADLEY Intake Chief Complaint : OB See ACOG LMP Date : 03/01/2014 Ambulatory Intake Additional Information : 27 3/7 week gestation Systolic Blood Pressure : 110 mmHg Diastolic Blood Pressure : 58 mmHg NIBP Mean : 75 mmHg BP Location : Left upper extremity Blood Pressure Cuff Size : Regular Height : 162 cm(Converted to: 5 ft 4 inch(es), 64 inch(es)) Actual Weight : 62 kg(Converted to: 136 lb 11 oz) Dosing Weight Clinic : 62 kg Clinic BSA : 1.67 Body Mass Index : 23.62 kg/m2 NIKI HADLEY - 09/10/2014 10:41 RING SEWER General Info Information Given By : Patient Languages : Ecuadorean Is Patient Female and 13-50 no hysterectomy : Yes Status : Confirmed positive Are you ? : No NIKI HADLEY 09/10/2014 10:41 RING SEWER Subjective Pain Symptoms : No NIKI HADLEY 09/10/2014 10:41 RING SEWER Dependent Habits Tobacco Use/Currently Using : Yes Exposure to Tobacco Smoke : Patient smokes Smoking Status : Current every day smoker NIKI HADLEY 09/10/2014 10:41 RING SEWER Tobacco Use Grid Type : Cigarettes Cigarette Use Packs/Day : 0.4 NIKI HADLEY 09/10/2014 10:41 RING SEWER Caffeine Use Grid Caffeine Use : Current Type : Coffee, Soft drinks Frequency : Daily Amount : 2 pots NIKI HADLEY 09/10/2014 10:41 RING SEWER Recreational Drug Use Grid Drug Use : None NIKI HADLEY 09/10/2014 10:41 RING SEWER ID Screen Drug Resistant Organism : No Travel Within Last 21 Days : No NIKI HADLEY 09/10/2014 10:41 RING SEWER Source: [facility] POWERCHART Document Id: [id number] RING SEWER!43 documented in this encounter Plan of Treatment Not on filedocumented as of this encounter Visit Diagnoses Not on filedocumented in this encounter
--- OUTSIDE RECORDS SUMMARY | 2022-02-22 12:39 | XMS_ITS | Encounter Summary ---
:1985 Author Organization [facility] Address [address] [place] [address] Care Team Providers Name Role Phone Unavailable Primary Care Provider Unavailable Encounter Details Date Type Department Care Team Description 06/05/2014 Hospital Encounter HX [facility] Jessy Douglas M.D. Social History [...] at Date Recorded Female 06/09/2021 2:09 PM NEWS COMMENTATOR documented as of this encounter Last Filed Vital Signs Vital Sign Reading Time Taken Comments Blood Pressure 108/68 06/05/2014 3:24 PM NEWS COMMENTATOR Pulse - - Temperature - - Respiratory Rate - - Oxygen Saturation - - Inhaled Oxygen Concentration - - Weight 62.3 kg (137 lb 5.6 oz) 06/05/2014 3:24 PM NEWS COMMENTATOR Height 162 cm (5' 3.78) 06/05/2014 3:24 PM NEWS COMMENTATOR Body Mass Index 23.74 06/05/2014 3:24 PM NEWS COMMENTATOR documented in this encounter Progress Notes Jessy Spears M.D. - 06/05/2014 3:12 PM CST [id number] CHIEF COMPLAINT/REASON FOR VISIT First visit. Summary of history, the documentation of this visit will be seen in the electronic OB form. However, because of the fact that the patient's history is more complicated and could not be documented in the space provided, I am providing extra dictation. Brief history, Preet is a 29-year-old 3, para 1, ectopic 1 who was seen for an ultrasound to verify intrauterine on 05/12/2014. Her last menstrual period 03/01/2014, suggesting an EDC of 12/07/2014. She is here today for a routine first visit. Please see vital signs and heart tones in the electronic record. Of significance, Preet does have a seizure disorder and, with her last with Dr. Robert, actually had to be induced because of increasing seizures. She did state that she had to increase her seizure medicine dose with her last , and I have strongly recommended that she see her neurologist to see if, one, we need to increase her dose again with this and, two, to discuss with her neurologist what she can do to avoid a recurrence of her late seizures like she had with her previous . She is still with her same partner and has had good control of her seizures since her last delivery. She also did have an ectopic that was treated by Dr. Robert. Sterlingid discuss 4 principles of . We did discuss the need for her to control her seizures and increase her folic acid intake, and I did prescribe her both chewable vitamin and folic acid.We discussed the frequency of her visits and we scheduled subsequent appointments, including her survey. She will obtain consultation with her neurologist before her next visit. Approximately 30 minutes of consultation and exam time associated with this visit. Jessy Spears M.D./cathy Electronically Signed By: JESSY SPEARS MD On: 06/09/2014 07:04 AM Source: [facility] MHSDOLBEYNONRADSYS Document Id: [id number] COMMENTATOR documented in this encounter Miscellaneous Notes Miscellaneous - Jessy Spears M.D. - 06/06/2014 6:17 AM CST Ambulatory Patient Summary [facility] [address] [place] [id number] Visit Information Name: PREET TURK [facility] Number: [id number] Current Date: 06/06/2014 06:17:02 Physicians Attending Provider: JESSY SPEARS MD Primary [...] tablet) 1 Tablet(s), Oral, once a day New Routed to [address] [address] multivitamin, ( Plus oral tablet) 1 Tablet(s), Oral, once a day multivitamin, ( 19 oral tablet, chewable) 1 Tablet(s), Oral, once a day Routed to [facility] [address] [place] [address] Stop Taking the Following Medications: Medication list as of 06-06-14 06:17 Attention: If you have any medications at [...] Electronically Signed By: JESSY SPEARS MD Signed On:06-JUN-2014 06:16:53 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 Your Goals/Additional instructions: Source: [facility] POWERCHART Document Id: [id number] COMMENTATOR Miscellaneous - Jessy Spears M.D. - 06/06/2014 6:17 AM CST Ambulatory Discharge Medication List [facility] [address] [place], [place] [id number] Visit Information Name: PREET TURK [facility] Number: [id number] Visit Date: 06/06/2014 06:17:00 Attending Provider: JESSY SPEARS MD Primary Care [...] tablet) 1 Tablet(s), Oral, once a day [email or web address] [address] [place] [address] multivitamin, ( Plus oral tablet) 1 Tablet(s), Oral, once a day multivitamin, ( 19 oral tablet, chewable) 1 Tablet(s), Oral, once a day [email or web address] [address] [place] [address] Stop Taking the Following Medications: Medication list as of 06-06-14 06:17 Attention: If you have any medications at [...] Electronically Signed By: JESSY SPEARS MD Signed On:06-JUN-2014 06:16:53 Additional Information: Source: [facility] POWERCHART Document Id: [id number] COMMENTATOR Miscellaneous - Conversion, Historical Provider Ser - 06/05/2014 3:24 PM NEWS COMMENTATOR Adult Climate Change Risk Assessor Intake/History Adult Climate Change Risk Assessor Intake/History Entered On: 06/05/2014 15:27 NEWS COMMENTATOR Performed On: 06/05/2014 15:24 NEWS COMMENTATOR by NIKI HADLEY Intake Chief Complaint : NOB 3 Para 1 Hx of ectopic LMP Date : 03/01/2014 Ambulatory Intake Additional Information : 13 3/7 week gestation Systolic Blood Pressure : 108 mmHg Diastolic Blood Pressure : 68 mmHg NIBP Mean : 81 mmHg BP Location : Left upper extremity Blood Pressure Cuff Size : Regular Height : 162 cm(Converted to: 5 ft 4 inch(es), 64 inch(es)) Actual Weight : 62.3 kg(Converted to: 137 lb 6 oz) Dosing Weight Clinic : 62.3 kg Clinic BSA : 1.67 Body Mass Index : 23.74 kg/m2 NIKI HADLEY 06/05/2014 15:24 NEWS COMMENTATOR General Info Information Given By : Patient Languages : Swedish Is Patient Female and 13-50 no hysterectomy : Yes Status : Confirmed positive Are you ? : No NIKI HADLEY 06/05/2014 15:24 NEWS COMMENTATOR Subjective Pain Symptoms : No NIKI HADLEY 06/05/2014 15:24 NEWS COMMENTATOR Dependent Habits Tobacco Use/Currently Using : Yes Exposure to Tobacco Smoke : Patient smokes Smoking Status : Current every day smoker NIKI HADLEY 06/05/2014 15:24 NEWS COMMENTATOR Tobacco Use Grid Type : Cigarettes Cigarette Use Packs/Day : 0.4 NIKI HADLEY 06/05/2014 15:24 NEWS COMMENTATOR Caffeine Use Grid Caffeine Use : Current Type : Coffee, Soft drinks Frequency : Daily Amount : 2 pots NIKI HADLEY 06/05/2014 15:24 NEWS COMMENTATOR Recreational Drug Use Grid Drug Use : None NIKI HADLEY 06/05/2014 15:24 NEWS COMMENTATOR ID Screen Drug Resistant Organism : No Travel Within Last 21 Days : No NIKI HADLEY 06/05/2014 15:24 NEWS COMMENTATOR [facility] Document Id: [id number] NEWS COMMENTATOR!43 documented in this encounter Plan of Treatment Not on filedocumented as of this encounter Procedures Procedure Name Priority Date/Time Associated Diagnosis Comme nts N GONOR AMP SRC Routine 06/05/2014 4:07 PM Result s for this NEWS COMMENTATOR procedure are i n the results section. N GONOR AMP DNA Routine 06/05/2014 4:07 PM Result s for this NEWS COMMENTATOR procedure are i n the results section. C TRACH AMP SRC Routine 06/05/2014 4:07 PM Result s for this NEWS COMMENTATOR procedure are i n the results section. C TRACH AMP RNA Routine 06/05/2014 4:07 PM Result s for this NEWS COMMENTATOR procedure are i n the results section. documented in this encounter Results HX-N gonor Amp DNA (06/05/2014 4:07 PM NEWS COMMENTATOR) athologist Signature HXN gonor Amp Negative POWERCHART DNA-[place] Specimen (Source) Anatomical Collection Method Collection Time Re ceived Time Location / / Volume Laterality 06/05/2014 4:07 PM NEWS COMMENTATOR Narrative POWERCHART - 06/06/2014 3:40 PM NEWS COMMENTATOR Test Performed by: [address] [address] Radial Arm Saw Operator: Radha Hayes Jessy Spears M.D. LAB HISTORICAL ORDERS Performing Organization Address City/State/ZIP Code Phon e Number POWERCHART HX-N gonor Amp Src (06/05/2014 4:07 PM NEWS COMMENTATOR) athologist Signature HXN gonor Amp cervix POWERCHART Src-[place] Specimen (Source) Anatomical Collection Method Collection Time Re ceived Time Location / / Volume Laterality 06/05/2014 4:07 PM NEWS COMMENTATOR Jessy Spears M.D. LAB HISTORICAL ORDERS Performing Organization Address City/State/ZIP Code Phon e Number POWERCHART HX-C trach Amp RNA (06/05/2014 4:07 PM NEWS COMMENTATOR) [facility] Method Time Signature Chlamydia Negative POWERCHART trachomatis amplified RNA Specimen (Source) Anatomical Collection Method Collection Time Re ceived Time Location / / Volume Laterality 06/05/2014 4:07 PM NEWS COMMENTATOR Jessy Spears M.D. LAB HISTORICAL ORDERS Performing Organization Address City/State/ZIP Code Phon e Number POWERCHART HX-C trach Amp Src (06/05/2014 4:07 PM NEWS COMMENTATOR) athologist Signature HXC trach Amp cervix POWERCHART Src-[place] Specimen (Source) Anatomical Collection Method Collection Time Re ceived Time Location / / Volume Laterality 06/05/2014 4:07 PM NEWS COMMENTATOR Jessy Spears M.D. LAB HISTORICAL ORDERS Performing Organization Address City/State/ZIP Code Phon e Number POWERCHART documented in this encounter Visit Diagnoses Not on filedocumented in this encounter
--- OUTSIDE RECORDS SUMMARY | 2022-02-22 12:39 | XMS_ITS | Encounter Summary ---
:1985 Author Organization [facility] Address [address] [place] [address] Care Team Providers Name Role Phone Unavailable Primary Care Provider Unavailable Encounter Details Date Type Department Care Team Description 01/01/2015 Hospital Encounter HX [facility] Ken Hernandez M.D. 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 - 01/01/2015 12:00 AM CDT 1RPT REASON FOR VISIT Complex lip laceration status post seizure. PROCEDURE PERFORMED Layered repair of lip with rearrangement of tissue and trimming of devitalized tissue from the complex laceration. INDICATION FOR PROCEDURE Luisa is a 29-year-old female who had a seizure today. She bit her lip and fell face down on thefloor. She was seen in the emergency room and it was felt that she would benefit from plastic surgery closure. On evaluation of the laceration today, she has a laterally based full-thickness laceration through the vermilion border, orbicularis donell and oral mucosa with just approximately a 1 cm base of tissue connecting the lip to the body. The remaining aspect of the lip coursing towards the medial aspect of the body was dangling on her lower lip. After evaluating the lesion, I discussed with Luisa that I am going to do my best to bring her lip back together such that it looks normal and functions properly. She gave her consent. Once the patient gave consent, we then prepped and draped in usual sterile fashion. We performed an infraorbital nerve block on the left side, as well as a small infusion of the lip on the medial aspect which was not made numb by the infraorbital nerve block. We then trimmed the devitalized skin edgesusing iris scissors. The tip of the avulsed tissue was not viable and was trimmed. We then advanced the tissue medially using deep sutures of the orbicularis donell muscle using 3-0 Monocryl deep. We then lined up the skin carefully using 6-0 plain gut sutures on the outside of the lip and then 4-0 chromic sutures on the inside of the mucosa. We then applied a small amount of Dermabond to the outside dry mucosa. The patient was given proper instructions and was also given a prescription for antibiotics for post procedure prophylaxis and a followup in 1 week for recheck. Length of today's visit was 40minutes. Terry Pettit M.D./cathy Electronically Signed By: TERRY PETTIT MD On: 01/02/2015 11:22 AM Source: [facility] MHSDOLBEYNONRADSYS Document Id: [id number] documented in this encounter Miscellaneous Notes Miscellaneous - Sara Chang [employer]MShiv - 01/01/2015 11:57 AM CDT Adult Clark Driver Intake/History Adult Clark Driver Intake/History Entered On: 01/01/2015 12:13 CDT Performed On: 01/01/2015 11:57 CDT by SARA CHANG [facility] Intake Chief Complaint : ED transfer-left upper lip laceration Height : 163.3 cm(Converted to: 5 ft 4 inch(es), 64 inch(es)) Actual Weight : 57.7 kg(Converted to: 127 lb 3 oz) Weight Source : Standing scale Dosing Weight Clinic : 57.7 kg Clinic BSA : 1.62 Body Mass Index : 21.64 kg/m2 SARA CHANG [facility] - 01/01/2015 11:57 CDT General Info Information Given By : Patient Preferred Communication Mode : Verbal Languages : Maltese Is Patient Female and 13-50 no hysterectomy : No SARA CHANG [facility] - 01/01/2015 11:57 CDT Subjective Pain Symptoms : Yes SARA CHANG [facility] - 01/01/2015 11:57 CDT Pain Scale Pain Scale Verbal 0-10 : Open SARA CHANG [facility] - 01/01/2015 11:57 CDT Pain Pain Assessment Grid Pain 1 Location : Other: upper lip Laterality : Left Intensity : 10 SARA CHANG [facility] - 01/01/2015 11:57 CDT Dependent Habits Tobacco Use/Currently Using : Yes Exposure to Tobacco Smoke : Patient smokes Smoking Status : Current every day smoker SARA CHANG [facility] - 01/01/2015 11:57 CDT Tobacco Use Grid Type : Cigarettes Cigarette Use Packs/Day : 0.4 SARA CHANG [facility] 01/01/2015 11:57 CDT Caffeine Use Grid Caffeine Use : Current Type : Coffee, Soft drinks Frequency : Daily Amount : 2 pots SARA CHANG [facility] - 01/01/2015 11:57 CDT Recreational Drug Use Grid Drug Use : None SARA CHANG [facility] 01/01/2015 11:57 CDT Source: [employer] Document Id: [id number] CDT!41 documented in this encounter Plan of Treatment Not on filedocumented as of this encounter Visit Diagnoses Not on filedocumented in this encounter
--- OUTSIDE RECORDS SUMMARY | 2022-02-22 12:39 | XMS_ITS | Encounter Summary ---
:1985 Author Organization [facility] Address [address] [place] [address] Care Team Providers Name Role Phone Unavailable Primary Care Provider Unavailable Encounter Details Date Type Department Care Team Description 01/13/2014 Hospital Encounter HX [facility] Slade Oviedo M.D. Social History Tobacco Use Types Packs/Day [...] or relatives? How often do you attend sikhism or 1 to 4 times per year 05/18 sabianism services? 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 - 01/13/2014 3:34 PM CDT [id number] CHIEF COMPLAINT/REASON FOR VISIT Follow up wrist injury. PATIENT HISTORY OF PRESENT ILLNESS Patient comes in for follow up of wrist injury. She had a wrist injury not work- related last Monday the when she fell. She sprained her wrist, was seen in urgent care and was given an off-work slip. Wants a note to go back to work. She is not having any pain or discomfort at this time. She is actually able to bend, use it with no pain, tenderness. She does not have a schedule that she is aware of, but has to go back to work to find out when she can get back to work. ALLERGIES Vicodin. MEDICATIONS vitamins. Tegretol 200 mg 2 tabs twice a day. VITAL SIGNS Weight 57.0 kg. Temp 36.9, pulse 64, respirations 18, blood pressure 90/62. PHYSICAL EXAMINATION GENERAL: Alert female, in no acute distress. EXTREMITIES: Wrist: No soft tissue swelling. No snuffbox tenderness. Normal range of motion. IMPRESSION/REPORT/PLAN Wrist sprain. Not doing well. PLAN: No restrictions on activity. Form completed. Okay to return to work starting tomorrow or whenever scheduled. Slade Oviedo M.D./cathy Electronically Signed By: SLADE OVIEDO MD On: 01/14/2014 08:19 AM Source: [facility] MHSDOLBEYNONRADSYS Document Id: [id number] documented in this encounter Miscellaneous Notes Miscellaneous - Veena Ny, R.N. - 07/30/2014 2:38 PM CST *Medication Refill Msg Carbamazepin From: [place] ([facility]) To: ANUPAM BOONE MD; Sent: 07/30/2014 14:38:29 AMPOULE FILLER Subject: *Medication Refill Msg Carbamazepin Caller is: ( ) Patient ( ) Mother ( ) Father ( ) Spouse ( ) Daughter ( ) Son ( ) Pharmacy ( ) Other: Provider: [facility] Name of Medications Needing Refill: Carbamzepin 200mg tab Take 2 tabs po twice daily with food Last Refill Date: 06-24-14 Additional Information: Last / Future Appointment: last appt: 07-26-13 last labs: 08-30-12 next appt: none Disposition: ( ) Send to Pharmacy ( ) Call to Pharmacy ( ) 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 - 01/13/2014 4:34 PM CDT Ambulatory Patient Summary [facility] [address] [place] [id number] Visit Information Name: PREET TURK [facility] Number: [id number] Current Date: 01/13/2014 16:34:38 Physicians Attending Provider: SLADE OVIEDO MD Primary Care Provider: ANUPAM BOONE MD [...] 2 Tablet(s), Oral, two times a day multivitamin, ( Plus oral tablet) 1 Tablet(s), Oral, once a day Stop Taking the Following Medications: Medication list as of 01-13-14 16:34 Attention: If you have any medications at home that are not on this list, DO NOT take them until youcontact your provider for clarification. Give a copy of your medication list to your primary care provider. Update your medication list any time medications or doses are changed and carry your medication list at all times in case of emergency. 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 Your Goals/Additional instructions: Source: [facility] POWERCHART Document Id: [id number] Miscellaneous - Slade Oviedo M.D. - 01/13/2014 4:34 PM CDT Ambulatory Discharge Medication List [facility] [address] [place] [id number] Visit Information Name: PREET TURK [facility] Number: [id number] Visit Date: 01/13/2014 16:34:36 Attending Provider: SLADE OVIEDO MD Primary Care Provider: ANUPAM BOONE MD [...] 2 Tablet(s), Oral, two times a day multivitamin, ( Plus oral tablet) 1 Tablet(s), Oral, once a day Stop Taking the Following Medications: Medication list as of 01-13-14 16:34 Attention: If you have any medications at home that are not on this list, DO NOT take them until youcontact your provider for clarification. Give a copy of your medication list to your primary care provider. Update your medication list any time medications or doses are changed and carry your medication list at all times in case of emergency. Electronically Signed By: SLADE OVIEDO MD Signed On:13-JAN-2014 16:34:33 Additional Information: Source: [facility] POWERCHART Document Id: [id number] Miscellaneous - Slade Oviedo M.D. - 01/13/2014 4:15 PM CDT Work Excuse 13 January 2014 PREET TURK [address] [facility] [id number] Dear PREET TURK, You were examined in my office on: 01/13/2014 Reason for work excuse: Medical Illness ( _ ) Yes ( _ ) No Injury ( x ) Yes ( _ ) No Is excused from all work: ( _ ) Yes ( x ) No Has work limitations: ( _ ) Yes ( x ) No As follows: _ Limitations apply until: _ Follow-Up Appointment : ( _ ) Return to Work date: 01/14/2014 Notes: _ Sincerely, SLADE OVIEDO [address] [place] [address] Electronic Signature Electronically Signed By: SLADE OVIEDO MD On: 13 January 2014 This document has images extracted. Source: [facility] Postmaster Document Id: [id number] Electronically signed by Kemal [facility] Fountain Roller Assembler [id number] at 12/13/2016 2:39 AM CDT Miscellaneous - Troy Echeverria L.P.N. - 01/13/2014 3:53 PM CDT Adult Vocational Teacher Intake/History Document Has Been Updated Adult Vocational Teacher Intake/History Entered On: 01/13/2014 15:56 CDT Performed On: 01/13/2014 15:53 CDT by TROY ECHEVERRIA Intake Chief Complaint : Needs an OK to return to work, seen in [facility] on 01-07-2014, needs OK to return to work TROY ECHEVERRIA - 01/13/2014 15:57 CDT Temperature Oral : 36.9 DegC(Converted to: 98.4 DegF) Peripheral Pulse Rate : 64 /min Respiratory Rate : 18 /min Systolic Blood Pressure : 90 mmHg (LOW) Diastolic Blood Pressure : 62 mmHg NIBP Mean : 71 mmHg Actual Weight : 57.0 kg(Converted to: 125 lb 11 oz) Dosing Weight Clinic : 57 kg TROY ECHEVERRIA - 01/13/2014 15:53 CDT General Info Information Given By : Patient Preferred Communication Mode : Verbal Languages : Taiwanese TROY ECHEVERRIA - 01/13/2014 15:53 CDT Subjective Pain Symptoms : No TROY ECHEVERRIA 01/13/2014 15:53 CDT Dependent Habits Tobacco Use/Currently Using : Yes Exposure to Tobacco Smoke : Patient smokes Smoking Status : Current every day smoker TROY ECHEVERRIA - 01/13/2014 15:53 CDT Tobacco Use Grid Type : Cigarettes Cigarette Use Packs/Day : 0.5 TROY ECHEVERRIA 01/13/2014 15:53 CDT Caffeine Use Grid Caffeine Use : Current Type : Coffee, Soft drinks Frequency : Daily Amount : 2 pots TROY ECHEVERRIA - 01/13/2014 15:53 CDT Recreational Drug Use Grid Drug Use : None TROY ECHEVERRIA 01/13/2014 15:53 CDT Source: [facility] POWERCHART Document Id: [id number] CDT!3 documented in this encounter Plan of Treatment Not on filedocumented as of this encounter Visit Diagnoses Not on filedocumented in this encounter
--- OUTSIDE RECORDS SUMMARY | 2022-02-22 12:39 | XMS_ITS | Encounter Summary ---
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 - 03/24/2014 1:46 PM CDT [id number] Ms. Coulter presents to clinic today for followup of MRI studies done secondary to knee injury thatwas initially injured on 03/13/2014 secondary to an impact type injury. Patient presented to clinic at that time. It was determined to get an MRI on her knee secondary to persistent knee pain in the patella with the range of motion activities and palpation. She also had a central lesion which was secondarily infected. I did prescribe her Keflex 500 mg four times a day which she states worked remarkably well and has since resolved secondary infection. MRI results show nonspecific severe patellar softtissue edema, #2 severe marrow edema of the patella presumably from radiographically occult nondisplaced incomplete fracture. The MRI also read that the edema could have been from the secondary infection however the secondary infection is now resolved and she is still having pain at the point of impact. Patient will be treated as a patellar fracture. MEDICATIONS As per electronic medical record without changes dated 03/24/2014. ALLERGIES Per electronic medical record without changes dated 03/24/2014. VITAL SIGNS Please see electronic medical record under nursing notes dated 03/24/2014. PHYSICAL EXAMINATION GENERAL: Ms. Coulter is a 29-year-old female in no acute distress. Ambulatory, weightbearing with limp to right knee. Oriented x3. EXTREMITIES: Central lesion, which is the focus of the cellulitis on previous exam, is very well resolved without further edema, erythema, ecchymosis. No adenitis noted. No discharge noted. Very well resolved. There was tenderness to palpation with patellar palpation and extension and flexion. There is no tenderness to palpation to the inferior or superior patellar tendons. There is no tenderness to palpation of the joint line. Bal's, Tiburcio's and varus and valgus stress all elicit no tenderness. DIAGNOSTICS MRI results were gone over with the patient. IMPRESSION/REPORT/PLAN Radiographically occult nondisplaced incomplete fracture of the patella right knee. PLAN: Did discuss treatment options with Dr. Chase who recommend we put her in a telescopic brace, hinge locked straight for 3 weeks, ambulation to tolerance, return to clinic at the end of the 3 week period, unhinge the brace, and then get her in range of motion activities. I explained all this with the patient. I feel patient will be compliant with this. The patient did request a prescription for tramadol 50 mg 1 by mouth every 6 hours secondary for pain. Also recommend she modify her activitylevel, which I feel she will be compliant with all the above. Patient was very satisfied with clinical visit. All questions were answered. Nannette Patrick P.A.-C./cathy Electronically Signed By: NANNETTE PATRICK On: 03/25/2014 09:11 AM Source: [facility] MHSDOLBEYNONRADSYS Document Id: [id number] documented in this encounter Miscellaneous Notes Miscellaneous - Nannette Patrick O.P.A.-C. - 03/24/2014 2:43 PM CDT Ambulatory Patient Summary [facility] [address] [place], [place] [id number] Visit Information Name: PREET COULTER [facility] Number: [id number] Current Date: 03/24/2014 14:43:27 Physicians Attending Provider: NANNETTE PATRICK Primary Care Provider: ANUPAM RIOJAS MD PREET COULTER has been given the [...] every 6 hours as needed for Pain This is a CHANGE Routed to Printer *traMADol (traMADol 50 mg oral tablet) 1 Tablet(s), Oral, every 4 hours as needed for Pain * You have let us know that you are not taking this medication as listed. Please talk with your primary care provider or the health care provider who prescribed the medication as soon as possible. Stop Taking the Following Medications: Medication list as of 03-24-14 14:43 Attention: If you have any medications at [...] emergency. 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 Your Goals/Additional instructions: Source: [facility] POWERCHART Document Id: [id number] Miscellaneous - Nannette Patrick O.P.A.-C. - 03/24/2014 2:43 PM CDT Ambulatory Discharge Medication List [address] [id number] Visit Information Name: PREET COULTER [facility] Number: [id number] Visit Date: 03/24/2014 14:43:26 Attending Provider: NANNETTE PATRICK Primary Care Provider: ANUPAM RIOJAS MD PREET COULTER has been given the [...] every 6 hours as needed for Pain This is a CHANGE Routed to Printer *traMADol (traMADol 50 mg oral tablet) 1 Tablet(s), Oral, every 4 hours as needed for Pain * You have let us know that you are not taking this medication as listed. Please talk with your primary care provider or the health care provider who prescribed the medication as soon as possible. Stop Taking the Following Medications: Medication list as of 03-24-14 14:43 Attention: If you have any medications at [...] of emergency. Electronically Signed By: NANNETTE PATRICK PA Signed On:24-MAR-2014 14:43:18 Additional Information: Source: [facility] POWERCHART Document Id: [id number] Miscellaneous - Dylan Riojas C.M.A. - 03/24/2014 1:54 PM CDT Adult Accountant Systems Intake/History Adult Accountant Systems Intake/History Entered On: 03/24/2014 13:57 CDT Performed On: 03/24/2014 13:54 CDT by [facility] Intake Chief Complaint : Right knee cap MRI right knee 03/19/14 Last note and xray 03/13/14 Never got the tramadol that was prescribed Systolic Blood Pressure : 111 mmHg Diastolic Blood Pressure : 76 mmHg NIBP Mean : 88 mmHg BP Location : Right upper extremity Blood Pressure Cuff Size : Regular Height : 162 cm(Converted to: 5 ft 4 inch(es), 64 inch(es)) Actual Weight : 58.6 kg(Converted to: 129 lb 3 oz) Weight Source : Standing scale Dosing Weight Clinic : 58.6 kg Clinic BSA : 1.62 Body Mass Index : 22.33 kg/m2 [facility] - 03/24/2014 13:54 CDT General Info Information Given By : Patient Preferred Communication Mode : Verbal Languages : Macedonian Is Patient Female and 13-50 no hysterectomy : Yes Status : Patient denies Are you ? : No [facility] - 03/24/2014 13:54 CDT Subjective Pain Symptoms : Yes [facility] - 03/24/2014 13:54 CDT Pain Pain Assessment Grid Pain 1 Location : Knee Laterality : Right Intensity : 6 [facility] - 03/24/2014 13:54 CDT Dependent Habits Tobacco Use/Currently Using : Yes Exposure to Tobacco Smoke : Patient smokes Smoking Status : Current every day smoker [facility] - 03/24/2014 13:54 CDT Tobacco Use Grid Type : Cigarettes Cigarette Use Packs/Day : 0.5 [facility] - 03/24/2014 13:54 CDT Caffeine Use Grid Caffeine Use : Current Type : Coffee, Soft drinks Frequency : Daily Amount : 2 pots [facility] - 03/24/2014 13:54 CDT Recreational Drug Use Grid Drug Use : None [facility] - 03/24/2014 13:54 CDT Source: [facility] obiwon Document Id: [id number] CDT!46 documented in this encounter Plan of Treatment Not on filedocumented as of this encounter Visit Diagnoses Not on filedocumented in this encounter
--- OUTSIDE RECORDS SUMMARY | 2022-02-22 12:39 | XMS_ITS | Encounter Summary ---
:1985 Author Organization [facility] Address [address] [place] [address] Care Team Providers Name Role Phone Unavailable Primary Care Provider Unavailable Encounter Details Date Type Department Care Team Description 09/10/2014 Hospital Encounter HX [facility] Chidi Douglas M.D. Social History [...] or relatives? How often do you attend temple or 1 to 4 times per year 05/18 cheondoism services? Do you belong to any clubs or No 06/09/2021 organizations such as temple groups, unions, fraternal or athletic groups, or [...] at Date Recorded Female 06/09/2021 2:09 PM CALL CENTER RN documented as of this encounter Last Filed Vital Signs Vital Sign Reading Time Taken Comments Blood Pressure - - Pulse - - Temperature - - Respiratory Rate - - Oxygen Saturation - - Inhaled Oxygen Concentration - - Weight - - Height 162 cm (5' 3.78) 09/10/2014 9:35 AM CALL CENTER RN Body Mass Index - - documented in this encounter Plan of Treatment Not on filedocumented as of this encounter Procedures Procedure Name Priority Date/Time Associated Diagnosis Comme nts US OB FOLLOW UP OR Routine 09/10/2014 9:51 AM Res ults for this REPEAT CALL CENTER RN procedure are i n the results section. documented in this encounter Results US OB Follow Up or Repeat (09/10/2014 9:51 AM CALL CENTER RN) Anatomical Region Laterality Modality Ultrasound Specimen (Source) Anatomical Collection Method Collection Time Re ceived Time Location / / Volume Laterality 09/10/2014 9:51 AM CALL CENTER RN Addenda Addendum by ProviderGamal M.D. o n 09/10/2014 9:51 AM CALL CENTER RN RAD^^^OW US OB Follow Up or Repeat 09/10/2014 09:51:39 Impressions 09/10/2014 4:42 PM CALL CENTER RN 1. Limited anatomy survey as above . 2 decrease in right renal ??calyceal dil atation and probable left pelvic kidney [facility] FIBER ARTIST Dept. [phone] Narrative 09/10/2014 4:42 PM CALL CENTER RN EXAM: US OB Follow Up or Repeat INDICATION: F/U right kidney COMPARISON: None. REFERRING PHYSICIAN: Chidi Spears M.D. SPECIALTY DEVELOPMENT CONSULTANT: Ariane Haji RDMS. : 3 PARA: 1 LMP: 03/01/2014 HAJA by LMP: 12/06/2014 GESTATIONAL AGE: 27 weeks and 4 days. PLACENTAL LOCATION: Anterior fundal UTERUS: Normal CERVICAL LENGTH: 5.5 cm. ADNEXA: Normal S/D Ratio: N/A POSITION: Transverse AMNIOTIC FLUID INDEX: 14.2 cm. STOMACH: Normal KIDNEYS: The left kidney appears to be m ore possibly a pelvic kidney the right renal calyceal dilatation is n oted at 4.3 mm which is slightly decreased from the previous moses dy BLADDER: Normal HEART: Normal HEART RATE: 140 beats per minute. Procedure Note Chidi Spears M.D. / Provider, Harry will M.D. - 11/23/2016 EXAM: US OB Follow Up or Repeat INDICATION: F/U right kidney COMPARISON: None. REFERRING PHYSICIAN: Chidi Spears M.D. SPECIALTY DEVELOPMENT CONSULTANT: Ariane Haji RDMS. : 3 PARA: 1 LMP: 03/01/2014 HAJA by LMP: 12/06/2014 GESTATIONAL AGE: 27 weeks and 4 days. PLACENTAL LOCATION: Anterior fundal UTERUS: Normal CERVICAL LENGTH: 5.5 cm. ADNEXA: Normal S/D Ratio: N/A POSITION: Transverse AMNIOTIC FLUID INDEX: 14.2 cm. STOMACH: Normal KIDNEYS: The left kidney appears to be m ore possibly a pelvic kidney the right renal calyceal dilatation is n oted at 4.3 mm which is slightly decreased from the previous moses dy BLADDER: Normal HEART: Normal HEART RATE: 140 beats per minute. IMPRESSION: 1. Limited anatomy survey as above . 2 decrease in right renal calyceal dilat ation and probable left pelvic kidney [facility] FIBER ARTIST Dept. [phone] Ariane Oreilly R.V.T., R.D.MFlexSFlex IMG OB US PROCEDUR ES documented in this encounter Visit Diagnoses Not on filedocumented in this encounter
--- OUTSIDE RECORDS SUMMARY | 2022-02-22 12:39 | XMS_ITS | Encounter Summary ---
:1985 Author Organization [facility] Address [address] [place] [address] Care Team Providers Name Role Phone Unavailable Primary Care Provider Unavailable Encounter Details Date Type Department Care Team Description 10/22/2014 Hospital Encounter [facility] Jessy Douglas M.D. 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 - 10/22/2014 11:42 AM CDT Ambulatory Patient Summary [facility] [address] [place], [place] [id number] Visit Information Name: PREET TURK [facility] Number: [id number] Current Date: 10/22/2014 11:42:05 Physicians Attending Provider: JESSY SPEARS MD Primary [...] the Following Medications: Medication list as of 10-22-14 11:42 Attention: If you have any medications at [...] Electronically Signed By: JESSY SPEARS MD Signed On:22-OCT-2014 11:42:00 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 Epilepsy NOS, not intractable Active 01/06/2012 Tobacco dependence Active Nephrolithiasis NOS Active Adopted Active Alcoholism in Family Active 01/06/12 Mother Other High-Risk Active 10/10/2012 Active 03/01/2014 Exam Active Your Upcoming Appointments Date Time Location Provider 11/05/2014 10:00 [facility] INKJET OPERATOR Jessy Spears MD 11/12/2014 10:00 [facility] INKJET OPERATOR Jessy Spears MD 11/19/2014 10:00 [facility] INKJET OPERATOR Jessy Spears MD 11/26/2014 10:00 [facility] INKJET OPERATOR Jessy Spears MD 12/03/2014 10:00 [facility] INKJET OPERATOR Jessy Spears MD 12/10/2014 10:00 [facility] INKJET OPERATOR Jessy Spears MD Attention: Contact your local Clinic if further appointment detail needed. Your Goals/Additional instructions: Source: [facility] POWERCHART Document Id: [id number] Miscellaneous - Jessy Spears M.D. - 10/22/2014 11:42 AM CDT Ambulatory Discharge Medication List [facility] [address] [place] [id number] Visit Information Name: [address] [facility] Number: [id number] Visit Date: 10/22/2014 11:42:03 Attending Provider: JESSY SPEARS MD Primary Care [...] the Following Medications: Medication list as of 10-22-14 11:42 Attention: If you have any medications at [...] Electronically Signed By: JESSY SPEARS MD Signed On:22-OCT-2014 11:42:00 Additional Information: Source: [facility] POWERCHART Document Id: [id number] Miscellaneous - Conversion, Historical Provider Ser - 10/22/2014 10:06 AM CDT 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 Intake/History 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 Intake/History Entered On: 10/22/2014 10:09 CDT Performed On: 10/22/2014 10:06 CDT by NIKI HADLEY Intake Chief Complaint : OB See ACOG LMP Date : 03/01/2014 Ambulatory Intake Additional Information : 33 3/7 week gestation Systolic Blood Pressure : 118 mmHg Diastolic Blood Pressure : 76 mmHg NIBP Mean : 90 mmHg BP Location : Left upper extremity Blood Pressure Cuff Size : Regular Height : 162 cm(Converted to: 5 ft 4 inch(es), 64 inch(es)) Actual Weight : 62.8 kg(Converted to: 138 lb 7 oz) Dosing Weight Clinic : 62.8 kg Clinic BSA : 1.68 Body Mass Index : 23.93 kg/m2 NIKI HADLEY - 10/22/2014 10:06 CDT General Info Information Given By : Patient Languages : Central African Is Patient Female and 13-50 no hysterectomy : Yes Status : Confirmed positive Are you ? : No NIKI HADLEY 10/22/2014 10:06 CDT Subjective Pain Symptoms : No NIKI HADLEY 10/22/2014 10:06 CDT Dependent Habits Tobacco Use/Currently Using : Yes Exposure to Tobacco Smoke : Patient smokes Smoking Status : Current every day smoker NIKI HADLEY 10/22/2014 10:06 CDT Tobacco Use Grid Type : Cigarettes Cigarette Use Packs/Day : 0.4 NIKI HADLEY 10/22/2014 10:06 CDT Caffeine Use Grid Caffeine Use : Current Type : Coffee, Soft drinks Frequency : Daily Amount : 2 pots NIKI HADLEY 10/22/2014 10:06 CDT Recreational Drug Use Grid Drug Use : None NIKI HADLEY 10/22/2014 10:06 CDT ID Screen Drug Resistant Organism : No Travel Within Last 21 Days : No Contact with someone with Ebola : No NIKI HADLEY 10/22/2014 10:06 CDT [facility] Document Id: [id number] CDT!44 documented in this encounter Plan of Treatment Not on filedocumented as of this encounter Visit Diagnoses Not on filedocumented in this encounter
--- OUTSIDE RECORDS SUMMARY | 2022-02-22 12:39 | XMS_ITS | Encounter Summary ---
:1985 Author Organization [facility] Address [address] [place] [address] Care Team Providers Name Role Phone Unavailable Primary Care Provider Unavailable Encounter Details Date Type Department Care Team Description 03/19/2014 Hospital Encounter HX [facility] MRI Nannette Whelan P.A.-C. [address] [place], [place] [address] Social History Tobacco Use [...] 1 to 4 times per year 05/18 holiness services? 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 documented in this encounter Results MR Knee Right without IV Contrast (03/19/2014 12:15 PM CDT) Anatomical Region Laterality Modality Lower Extremity, Knee Right Magnetic Resonance Specimen (Source) Anatomical Collection Method Collection Time Re ceived Time Location / / Volume Laterality 03/19/2014 12:15 PM CDT Addenda Addendum by Provider, Pippa Yeung 03/19/2014 12:15 PM CDT RAD^^^OW MR Knee Right w o contrast 03/19/2014 12:15:00 Impressions 03/19/2014 1:35 PM CDT 1. ??Nonspecific severe prepatellar soft tissue edema. 2. Severe marrow edema in the patella is presumably from radiographically occult nondisplaced inc omplete fracture. See discussion. Exam opened at 03/19/2014 1:21 PM. Results sent by [employer] to DR. NANNETTE WHELAN at 03/19/2014 1:31 PM. Narrative 03/19/2014 1:35 PM CDT EXAM: MR Knee Right w/o contrast INDICATION: right knee pain AGE: 29 years-old COMPARISON: Radiographs 03/13/14 FINDINGS: PREPATELLAR SOFT TISSUES: There is sever e nonspecific edema within the prepatellar soft tissues. This is co mpatible with clinical history of cellulitis. This could also b e traumatic contusion of soft tissues. MARROW: There is severe marrow edema in the medial and mid patella. This is probably from radiographically o ccult incomplete nondisplaced fracture of the posterior cortex of the patella. Cannot exclude that this edema is reactive to cellulitis. Th is study was not protocoled/performed to check for osteom yelitis. If there is clinical concern for osteomyelitis, then patient can return for additional sequences to evaluate for such. ALIGNMENT: No subluxation CAPSULE: Intact. SYNOVIUM: No joint effusion. MEDIAL COMPARTMENT: Negative for tear th e medial meniscus. Negative for defect of the articular cartilage. LATERAL COMPARTMENT: Negative for tear o f the lateral meniscus. Negative for defect of the articular car tilage. PATELLOFEMORAL COMPARTMENT: Negative for defect of the articular cartilage. ANTERIOR CRUCIATE LIGAMENT: Intact. POSTERIOR CRUCIATE LIGAMENT: Intact. MEDIAL COLLATERAL LIGAMENT: Intact. LATERAL COLLATERAL LIGAMENTOUS COMPLEX: Intact. POSTERIOR LATERAL CORNER: Normal poplite us tendon. ??Normal popliteal fibular ligament. ILIOTIBIAL BAND: Normal. DISTAL QUADRICEPS AND PATELLAR TENDONS: Intact. BURSA: Tiny popliteal cyst. MUSCLES: No atrophy. Procedure Note Salas Rawls M.D. / Gamal De La Garza M.D. - 11/25/2016 EXAM: MR Knee Right w/o contrast INDICATION: right knee pain AGE: 29 years-old COMPARISON: Radiographs 03/13/14 FINDINGS: PREPATELLAR SOFT TISSUES: There is sever e nonspecific edema within the prepatellar soft tissues. This is co mpatible with clinical history of cellulitis. This could also b e traumatic contusion of soft tissues. MARROW: There is severe marrow edema in the medial and mid patella. This is probably from radiographically o ccult incomplete nondisplaced fracture of the posterior cortex of the patella. Cannot exclude that this edema is reactive to cellulitis. Th is study was not protocoled/performed to check for osteom yelitis. If there is clinical concern for osteomyelitis, then patient can return for additional sequences to evaluate for such. ALIGNMENT: No subluxation CAPSULE: Intact. SYNOVIUM: No joint effusion. MEDIAL COMPARTMENT: Negative for tear th e medial meniscus. Negative for defect of the articular cartilage. LATERAL COMPARTMENT: Negative for tear o f the lateral meniscus. Negative for defect of the articular car tilage. PATELLOFEMORAL COMPARTMENT: Negative for defect of the articular cartilage. ANTERIOR CRUCIATE LIGAMENT: Intact. POSTERIOR CRUCIATE LIGAMENT: Intact. MEDIAL COLLATERAL LIGAMENT: Intact. LATERAL COLLATERAL LIGAMENTOUS COMPLEX: Intact. POSTERIOR LATERAL CORNER: Normal poplite us tendon. Normal popliteal fibular ligament. ILIOTIBIAL BAND: Normal. DISTAL QUADRICEPS AND PATELLAR TENDONS: Intact. BURSA: Tiny popliteal cyst. MUSCLES: No atrophy. IMPRESSION: 1. Nonspecific severe prepatellar soft t issue edema. 2. Severe marrow edema in the patella is presumably from radiographically occult nondisplaced inc omplete fracture. See discussion. Exam opened at 03/19/2014 1:21 PM. Results sent by [facility] to DR. NANNETTE WHELAN at 03/19/2014 1:31 PM. Historical Provider IMG MRI PROCEDURES documented in this encounter Visit Diagnoses Not on filedocumented in this encounter
--- OUTSIDE RECORDS SUMMARY | 2022-02-22 12:39 | XMS_ITS | Encounter Summary ---
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 - 04/14/2014 10:39 AM CDT [id number] HISTORY OF PRESENT ILLNESS Ms. Coulter presents to clinic today for followup of right patella fracture that was initially injured and February 2014, the patient was seen in the Emergency Department. X-rays were taken, which showed no acute pathology. Because of the nature of the fracture and location of the fracture, MRI was requ ested on 03/19/2014, which showed: 1. A nondisplaced severe patellar soft tissue edema. 2. Severe marrow edema on the patella is presumably from radiographically occult nondisplaced incomplete fracture. Dr. Chase reviewed the MRI and recommended that we put her into a knee immobilizeras well as telescopic brace. Hinges locked for 3 weeks and ambulance tolerance to repeat in 3 weeks.The patient presents to clinic today being 3 weeks from last clinical visit and is noncompliant witha telescopic knee brace. She states that she took it out some time ago. The patient states she is still having the knee pain, especially when flexing or extending the knee. Denies any further trauma orinjury to the right knee. MEDICATIONS As per electronic medical record without changes, dated 04/14/2013. ALLERGIES Per electronic medical record without changes, dated 04/14/2014. VITAL SIGNS Please see electronic medical record nursing notes, dated 04/14/2014. PHYSICAL EXAMINATION Ms. Coulter is a 29-year-old female, in no acute distress. Ambulatory, weightbearing with limp to right knee. Oriented x3. Telescopic brace is not on her left lower extremity. The knee was without edema, erythema, ecchymosis, or effusion. There was tenderness to palpation to the patella with palpation going from the superior to inferior pole approximately mid line. Extension was to 0 degrees and flexion approximately 135 degrees. Bal's, Tiburcio's and varus and valgus stress elicited no pain ortenderness. There is no tenderness to palpation to the joint line. There is full active range of motion all joints distally with neurovascular intact include all digits. DIAGNOSTICS X-rays today showed a resolving healing lying of the noted fracture as per MRI and assessment did encourage her and stressed that she needed to put on the back on the knee immobilizer/knee brace to prevent any further injury or damage. She however can unlock the knee brace, which she is ambulatory andweightbearing, and I gave her instructions on how to do that, and follow up in 3 weeks. The patient,I feel be compliant with knee brace wear and usage. All questions were answered. The patient will follow up in 3 weeks. Nannette Patrick P.A.-C./cathy Electronically Signed By: NANNETTE PATRICK On: 04/16/2014 08:14 AM Source: [facility] MHSDOLBEYNONRADSYS Document Id: [id number] documented in this encounter Miscellaneous Notes Miscellaneous - Nannette Patrick O.P.A.-C. - 04/14/2014 12:38 PM CDT Ambulatory Patient Summary [address] [id number] Visit Information Name: PREET COULTER [facility] Number: [id number] Current Date: 04/14/2014 12:38:36 Physicians Attending Provider: NANNETTE PATRICK Primary Care [...] tablet) 1 Tablet(s), Oral, once a day *traMADol (traMADol 50 mg oral tablet) 1 Tablet(s), Oral, every 6 hours as needed for Pain * You have let us know that you are not taking this medication as listed. Please talk with your primary care provider or the health care provider who prescribed the medication as soon as possible. Stop Taking the Following Medications: Medication list as of 04-14-14 12:38 Attention: If you have any medications at [...] emergency. 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 Your Goals/Additional instructions: Source: [facility] POWERCHART Document Id: [id number] Miscellaneous - Nannette Patrick O.P.A.-C. - 04/14/2014 12:38 PM CDT Ambulatory Discharge Medication List [address] [id number] Visit Information Name: PREET COULTER [facility] Number: [id number] Visit Date: 04/14/2014 12:38:34 Attending Provider: NANNETTE PATRICK Primary Care Provider: [...] tablet) 1 Tablet(s), Oral, once a day *traMADol (traMADol 50 mg oral tablet) 1 Tablet(s), Oral, every 6 hours as needed for Pain * You have let us know that you are not taking this medication as listed. Please talk with your primary care provider or the health care provider who prescribed the medication as soon as possible. Stop Taking the Following Medications: Medication list as of 04-14-14 12:38 Attention: If you have any medications at [...] emergency. Electronically Signed By: NANNETTE PATRICK Signed On:14-APR-2014 12:38:06 Additional Information: Source: [facility] POWERCHART Document Id: [id number] Miscellaneous - Tish Keith L.P.N. 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 Intake/History Adult Principal Biostatistician Intake/History Entered On: 04/14/2014 11:05 CDT Performed On: 04/14/2014 11:03 CDT by TISH KEITH Intake Chief Complaint : Recheck rt knee fracture.84 Peripheral Pulse Rate : 84 /min Respiratory Rate : 18 /min Height : 162 cm(Converted to: 5 ft 4 inch(es), 64 inch(es)) Actual Weight : 57 kg(Converted to: 125 lb 11 oz) Dosing Weight Clinic : 57 kg Clinic BSA : 1.6 Body Mass Index : 21.72 kg/m2 TISH KEITH - 04/14/2014 11:03 CDT General Info Information Given By : Patient Languages : Malaysian Is Patient Female and 13-50 no hysterectomy : Yes Status : Confirmed positive Are you ? : No TISH KEITH - 04/14/2014 11:03 CDT Subjective Pain Symptoms : Yes TISH KEITH 04/14/2014 11:03 CDT Pain Pain Assessment Grid Pain 1 Location : Knee Intensity : 5 TISH KEITH - 04/14/2014 11:03 CDT Dependent Habits Tobacco Use/Currently Using : Yes Exposure to Tobacco Smoke : Patient smokes Smoking Status : Current every day smoker TISH KEITH - 04/14/2014 11:03 CDT Tobacco Use Grid Type : Cigarettes Cigarette Use Packs/Day : 0.5 TISH KEITH - 04/14/2014 11:03 CDT Caffeine Use Grid Caffeine Use : Current Type : Coffee, Soft drinks Frequency : Daily Amount : 2 pots TISH KEITH 04/14/2014 11:03 CDT Recreational Drug Use Grid Drug Use : None TISH KEITH 04/14/2014 11:03 CDT Source: [facility] POWERCHART Document Id: [id number] CDT!40 documented in this encounter Plan of Treatment Not on filedocumented as of this encounter Procedures Procedure Name Priority Date/Time Associated Diagnosis Comme nts DX KNEE RIGHT 1 Routine 04/14/2014 11:22 AM Resul ts for this VIEW CDT procedure are i n the results section. documented in this encounter Results DX Knee Right 1 View (04/14/2014 11:22 AM CDT) Anatomical Region Laterality Modality Lower Extremity, Knee Right Radiographic Imagi ng Specimen (Source) Anatomical Collection Method Collection Time Re ceived Time Location / / Volume Laterality 04/14/2014 11:22 AM CDT Addenda Addendum by Provider, Pippa Yeung 04/14/2014 11:22 AM CDT RAD^^^OW XR Knee Right 2 or less views 04/14/2014 11:22:12 Impressions 04/14/2014 1:32 PM CDT ??Please see above dictation. Narrative 04/14/2014 1:32 PM CDT EXAM: ??XR Knee Right 2 or less views INDICATION: ??right patella fracture COMPARISON: ??None. FINDINGS: ??Skeletally mature individual . There is a subtle lucency through the patella on the sunrise view which could represent occult fracture that was previously seen on MRI . No displacement. Overall alignment is anatomic. Procedure Note Tushar Chase M.D. / Provider, His sarah M.D. - 11/26/2016 EXAM: XR Knee Right 2 or less views INDICATION: right patella fracture COMPARISON: None. FINDINGS: Skeletally mature individual. There is a subtle lucency through the patella on the sunrise view which could represent occult fracture that was previously seen on MRI . No displacement. Overall alignment is anatomic. IMPRESSION: Please see above dictation. Leilani Payne(Linda) IMG DIAGNOSTIC IMAGING PROCE KIM documented in this encounter Visit Diagnoses Not on filedocumented in this encounter
--- OUTSIDE RECORDS SUMMARY | 2022-02-22 12:39 | XMS_ITS | Encounter Summary ---
:1985 Author Organization [facility] [place] Address [address] [place] [address] Care Team Providers Name Role Phone Unavailable Primary Care Provider Unavailable Encounter Details Date Type Department Care Team Description 07/29/2014 Hospital Encounter [facility] Chidi Douglas M.D. Social History Tobacco [...] 1 to 4 times per year 05/18 mosque services? 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 documented as of this encounter Last Filed Vital Signs Vital Sign Reading Time Taken Comments Blood Pressure 102/58 07/29/2014 3:14 PM BUTTON RECLAIMER Pulse - - Temperature - - Respiratory Rate - - Oxygen Saturation - - Inhaled Oxygen Concentration - - Weight 60.3 kg (132 lb 15 oz) 07/29/2014 3:14 PM BUTTON RECLAIMER Height 162 cm (5' 3.78) 07/29/2014 3:14 PM BUTTON RECLAIMER Body Mass Index 22.98 07/29/2014 3:14 PM BUTTON RECLAIMER documented in this encounter Miscellaneous Notes Miscellaneous - Conversion, Historical Provider Ser - 07/29/2014 3:14 PM BUTTON RECLAIMER Adult Bracelet Form 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 Intake/History Adult Bracelet Form Coverer Intake/History Entered On: 07/29/2014 15:16 BUTTON RECLAIMER Performed On: 07/29/2014 15:14 BUTTON RECLAIMER by NIKI HADLEY Intake Chief Complaint : OB See ACOG survey LMP Date : 03/01/2014 Ambulatory Intake Additional Information : 21 2/7 week gestation Systolic Blood Pressure : 102 mmHg Diastolic Blood Pressure : 58 mmHg NIBP Mean : 73 mmHg BP Location : Left upper extremity Blood Pressure Cuff Size : Regular Height : 162 cm(Converted to: 5 ft 4 inch(es), 64 inch(es)) Actual Weight : 60.3 kg(Converted to: 132 lb 15 oz) Dosing Weight Clinic : 60.3 kg Clinic BSA : 1.65 Body Mass Index : 22.98 kg/m2 NIKI HADLEY 07/29/2014 15:14 BUTTON RECLAIMER General Info Information Given By : Patient Languages : Wolof Is Patient Female and 13-50 no hysterectomy : Yes Status : Confirmed positive Are you ? : No NIKI HADLEY - 07/29/2014 15:14 BUTTON RECLAIMER Subjective Pain Symptoms : No NIKI HADLEY 07/29/2014 15:14 BUTTON RECLAIMER Dependent Habits Tobacco Use/Currently Using : Yes Exposure to Tobacco Smoke : Patient smokes Smoking Status : Current every day smoker NIKI HADLEY 07/29/2014 15:14 BUTTON RECLAIMER Tobacco Use Grid Type : Cigarettes Cigarette Use Packs/Day : 0.4 NIKI HADLEY 07/29/2014 15:14 BUTTON RECLAIMER Caffeine Use Grid Caffeine Use : Current Type : Coffee, Soft drinks Frequency : Daily Amount : 2 pots NIKI HADLEY 07/29/2014 15:14 BUTTON RECLAIMER Recreational Drug Use Grid Drug Use : None NIKI HADLEY - 07/29/2014 15:14 BUTTON RECLAIMER ID Screen Drug Resistant Organism : No Travel Within Last 21 Days : No NIKI HADLEY - 07/29/2014 15:14 BUTTON RECLAIMER Source: [facility] [employer] Document Id: [id number] BUTTON RECLAIMER!43 documented in this encounter Plan of Treatment Not on filedocumented as of this encounter Visit Diagnoses Not on filedocumented in this encounter
--- OUTSIDE RECORDS SUMMARY | 2022-02-22 12:39 | XMS_ITS | Encounter Summary ---
:1985 Author Organization [facility] Address [address] [place] [address] Care Team Providers Name Role Phone Unavailable Primary Care Provider Unavailable Encounter Details Date Type Department Care Team Description 02/23/2014 Hospital Encounter HX NO MAPPING Lorne Gonsalves M.D. 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 - 02/24/2014 8:43 AM CDT *General Message Document Contains Addenda Addendum by BENJAMIN SHERIDAN on 25 February 2014 17:07:55 CDT Patient arrives in clinic stating she had an appointment at 5 pm. Given information listed below byprovider. Appointment given for 02/26/14. Addendum by BENJAMIN SHERIDAN on 25 February 2014 15:15:33 CDT Attempted to leave a message with patient on phone number listed and received message the person you are trying to call is currently unavailable please call back later. Addendum by RADHA ALEGRIA on 24 February 2014 14:18:[address] Chase patient to be seen by Steve Benedict PA-C either on Monday or on Monday to determine in MRI is needed. From: RADHA ALEGRIA ( Orthopedic Nurse) To: OW Orthopedic Nurse; Sent: 02/24/2014 08:43:48 CDT Subject: *General Message S: Follow up from ER for knee injury B: A: Patient was seen in ER on 02-23-14 for knee injury R: Patient called and left message to call back Source: [facility] POWERCHART Document Id: [id number] documented in this encounter Plan of Treatment Not on filedocumented as of this encounter Visit Diagnoses Not on filedocumented in this encounter
--- OUTSIDE RECORDS SUMMARY | 2022-02-22 12:39 | XMS_ITS | Encounter Summary ---
:1985 Author Organization [facility] Address [address] [place] [address] Care Team Providers Name Role Phone Unavailable Primary Care Provider Unavailable Encounter Details Date Type Department Care Team Description 07/29/2014 Hospital Encounter HX [facility] Bekah Chavez M.D. 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 documented as of this encounter Last Filed Vital Signs Vital Sign Reading Time Taken Comments Blood Pressure - - Pulse - - Temperature - - Respiratory Rate - - Oxygen Saturation - - Inhaled Oxygen Concentration - - Weight - - Height 162 cm (5' 3.78) 07/29/2014 2:23 PM PRODUCTION TEAM MANAGER Body Mass Index - - documented in this encounter Plan of Treatment Not on filedocumented as of this encounter Procedures Procedure Name Priority Date/Time Associated Diagnosis Comme nts US OB GREATER THAN Routine 07/29/2014 2:39 PM Res ults for this 14 WEEKS PRODUCTION TEAM MANAGER procedure are i n the results section. documented in this encounter Results US OB Greater than 14 weeks (07/29/2014 2:39 PM PRODUCTION TEAM MANAGER) Anatomical Region Laterality Modality Ultrasound Specimen (Source) Anatomical Collection Method Collection Time Re ceived Time Location / / Volume Laterality 07/29/2014 2:39 PM PRODUCTION TEAM MANAGER Addenda Addendum by Provider, Pippa Yeung 07/29/2014 2:39 PM PRODUCTION TEAM MANAGER RAD^^^OW US OB Greater than 14 weeks 07/29/2014 14:39:16 Impressions 07/29/2014 3:36 PM PRODUCTION TEAM MANAGER 1. Viable with HAJA of December 08, 2014 , consistent with prior dates. 2. anatomic survey appears normal, gender is female. 3. Incidentally noted was right re nal pelvis dilatation of 4.6 mm. In general, it is reasonable to use the sonographically derived HAJA if it differs from that calculated using the last menstrual period (LMP) by more than seven days in the fir st trimester and by more than 10 days in the second trimester. In the third trimester, a three-week discrepancy between LMP dating and ultra sound dating is allowed before changing HAJA. No anomalies were detected by isabel mahoney's survey. Results shared with the patient were done with a n understanding of the limitations of ultrasound for detection of aneuploidy, as well as congenital heart defects. [facility] [place] [employer] COMMISSIONER Dept. [phone] Narrative 07/29/2014 3:36 PM PRODUCTION TEAM MANAGER EXAM: US OB Greater than 14 weeks INDICATION: Survey REFERRING PHYSICIAN: Tory SECURITY MANAGER: Ariane Haji RDMS. : 3 ?? PARA: 1 LMP: March 01, 2014 ? HAJA by LMP: 2014 ?EGA by LMP: 21 weeks and 2 days NUMBER: One ??CHORIONICITY: N/A PRESENTATION: Variable UTERUS: Visually normal. CERVIX: 4.1 cm PLACENTA: Anterior with no evidence of p lacenta previa nor abruption. ADNEXA: Visually normal, no adnexal mass es detected. AMNIOTIC FLUID INDEX: Appropriate and no rmal for gestational age at 17.4 cm. BIOMETRY GA(BPD): 5.08 cm, 21 weeks and 2 days GA(HC): 19.2 cm, 21 weeks and 3 days GA(AC): 16.6 cm, 21 weeks and 4 days GA(FL): 3.34 cm, 20 weeks and 3 days GA(HL): 3.27 cm, 21 weeks and 0 days Based on the above, the average ultrasou nd age is 21 weeks and 1 days. See 'Impression' below for ultrasound ca lculation of Estimated Date of Delivery (HAJA). The following anatomic features we re well visualized and appear normal today: SPINE (longitudinal and transverse): Nor mal CEREBELLUM: Normal CISTERNA MAGNA: Normal NUCHAL FOLD: Normal LATERAL VENTRICLES: Normal CHOROID PLEXUS: Normal FOUR CHAMBER HEART: Normal HEART RATE: 148 beats per minute CARDIAC AXIS: Normal RIGHT AND LEFT OUTFLOW TRACTS: Normal ANTERIOR ABDOMINAL WALL: Normal DIAPHRAGM: Normal CORD INSERTION: Normal THREE VESSEL CORD: Normal STOMACH: Normal BLADDER: Normal KIDNEYS: Normal EXTREMITIES (arms and legs): Normal HANDS AND FEET: Normal ORBITS: Normal PROFILE: Normal NOSE AND LIPS: Normal CORD INSERTION AT PLACENTA: Normal Procedure Note Jeronimo Dyer M.D. / Provider, Harry will M.D. - 11/23/2016 EXAM: US OB Greater than 14 weeks INDICATION: Survey REFERRING PHYSICIAN: Tory SECURITY MANAGER: Ariane Haji RDMS. : 3 PARA: 1 LMP: March 01, 2014 HAJA by LMP: December 07, 2014 EGA by LMP: 21 weeks and 2 days NUMBER: One CHORIONICITY: N/A PRESENTATION: Variable UTERUS: Visually normal. CERVIX: 4.1 cm PLACENTA: Anterior with no evidence of p lacenta previa nor abruption. ADNEXA: Visually normal, no adnexal mass es detected. AMNIOTIC FLUID INDEX: Appropriate and no rmal for gestational age at 17.4 cm. BIOMETRY GA(BPD): 5.08 cm, 21 weeks and 2 days GA(HC): 19.2 cm, 21 weeks and 3 days GA(AC): 16.6 cm, 21 weeks and 4 days GA(FL): 3.34 cm, 20 weeks and 3 days GA(HL): 3.27 cm, 21 weeks and 0 days Based on the above, the average ultrasou nd age is 21 weeks and 1 days. See 'Impression' below for ultrasound ca lculation of Estimated Date of Delivery (HAJA). The following anatomic features we re well visualized and appear normal today: SPINE (longitudinal and transverse): Nor mal CEREBELLUM: Normal CISTERNA MAGNA: Normal NUCHAL FOLD: Normal LATERAL VENTRICLES: Normal CHOROID PLEXUS: Normal FOUR CHAMBER HEART: Normal HEART RATE: 148 beats per minute CARDIAC AXIS: Normal RIGHT AND LEFT OUTFLOW TRACTS: Normal ANTERIOR ABDOMINAL WALL: Normal DIAPHRAGM: Normal CORD INSERTION: Normal THREE VESSEL CORD: Normal STOMACH: Normal BLADDER: Normal KIDNEYS: Normal EXTREMITIES (arms and legs): Normal HANDS AND FEET: Normal ORBITS: Normal PROFILE: Normal NOSE AND LIPS: Normal CORD INSERTION AT PLACENTA: Normal IMPRESSION: 1. Viable with HAJA of December 08, 2014 , consistent with prior dates. 2. anatomic survey appears normal, gender is female. 3. Incidentally noted was right re nal pelvis dilatation of 4.6 mm. In general, it is reasonable to use the sonographically derived HAJA if it differs from that calculated using the last menstrual period (LMP) by more than seven days in the fir st trimester and by more than 10 days in the second trimester. In the third trimester, a three-week discrepancy between LMP dating and ultra sound dating is allowed before changing HAJA. No anomalies were detected by isabel mahoney's survey. Results shared with the patient were done with a n understanding of the limitations of ultrasound for detection of aneuploidy, as well as congenital heart defects. [facility] [place] [employer]ER Dept. [phone] Ariane Oreilly R.V.T.Jo-Ann IMJessica OB US PROCEDUR ES documented in this encounter Visit Diagnoses Not on filedocumented in this encounter
--- OUTSIDE RECORDS SUMMARY | 2022-02-22 12:39 | XMS_ITS | Encounter Summary ---
:1985 Author Organization [facility] Address [address] [place] [address] Care Team Providers Name Role Phone Unavailable Primary Care Provider Unavailable Encounter Details Date Type Department Care Team Description 11/19/2014 Hospital Encounter HX [facility] Jessy Douglas M.D. 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 documented as of this encounter Last Filed Vital Signs Vital Sign Reading Time Taken Comments Blood Pressure 116/58 11/19/2014 10:04 AM CDT Pulse - - Temperature - - Respiratory Rate - - Oxygen Saturation - - Inhaled Oxygen Concentration - - Weight 65.1 kg (143 lb 8.3 oz) 11/19/2014 10:04 AM CDT Height 162 cm (5' 3.78) 11/19/2014 10:04 AM CDT Body Mass Index 24.81 11/19/2014 10:04 AM CDT documented in this encounter Miscellaneous Notes Miscellaneous - Bryan Mehta - 11/24/2014 2:12 PM CDT Reminder Msg-reminder call Document Contains Addenda Addendum by BRYAN MEHTA on 30 December 2014 10:14:54 CDT We left several messages for patient to call us back to schedule a [address] appointment [address] Spears. As of now, no appointment has been made. From: BRYAN MEHTA To: BRYAN MEHTA; Sent: 11/24/2014 14:12:32 CDT Show up: 12/18/2014 08:00:00 CDT Subject: Reminder Msg-reminder call Due Date/Time: 12/18/2014 08:00:00 CDT Please Remember to: Call patient to schedule a 6 week post check on 01-01-[address] Spears PATIENT: ( ) Call Patient ( ) Ask Patient to ( ) ( ) Call Relative ( ) Schedule Patient ( ) ( ) Call for Surveillance Technician ( ) Follow up on Results ( ) Other: PROVIDER: ( ) Call Physician ( ) Call Pharmacist ( ) Call Lab ( ) Other: Special Instructions: Comments: Source: [facility] POWERCHART Document Id: [id number] Miscellaneous - Jessy Spears M.D. - 11/19/2014 10:34 AM CDT Ambulatory Patient Summary [address] [id number] Visit Information Name: PREET TURK [facility] Number: [id number] Current Date: 11/19/2014 10:34:59 Physicians Attending Provider: JESSY SPEARS MD Primary [...] the Following Medications: Medication list as of 11-19-14 10:34 Attention: If you have any medications at [...] Electronically Signed By: JESSY SPEARS MD Signed On:19-NOV-2014 10:34:53 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 Your Goals/Additional instructions: Source: [facility] POWERCHART Document Id: [id number] Miscellaneous - Jessy Spears M.D. - 11/19/2014 10:34 AM CDT Ambulatory Discharge Medication List [address] [id number] Visit Information Name: PREET TURK [facility] Number: [id number] Visit Date: 11/19/2014 10:34:57 Attending Provider: JESSY SPEARS MD Primary Care [...] the Following Medications: Medication list as of 11-19-14 10:34 Attention: If you have any medications at [...] Electronically Signed By: JESSY SPEARS MD Signed On:19-NOV-2014 10:34:53 Additional Information: Source: [facility] POWERCHART Document Id: [id number] Miscellaneous - Bryan Mehta - 11/19/2014 10:04 AM CDT Adult Hasher Operator Intake/History Adult Hasher Operator Intake/History Entered On: 11/19/2014 10:09 CDT Performed On: 11/19/2014 10:04 CDT by BRYAN MEHTA Intake Chief Complaint : ob ck-see [id number]-37 3/7 weeks LMP Date : 03-01-14 Systolic Blood Pressure : 116 mmHg Diastolic Blood Pressure : 58 mmHg NIBP Mean : 77 mmHg BP Location : Left upper extremity Blood Pressure Cuff Size : Large Height : 162 cm(Converted to: 5 ft 4 inch(es), 64 inch(es)) Actual Weight : 65.1 kg(Converted to: 143 lb 8 oz) Dosing Weight Clinic : 65.1 kg Clinic BSA : 1.71 Body Mass Index : 24.81 kg/m2 BRYAN MEHTA - 11/19/2014 10:04 CDT General Info Information Given By : Patient Preferred Communication Mode : Verbal Languages : Prydeinig Is Patient Female and 13-50 no hysterectomy : Yes Status : Confirmed positive Are you ? : No BRYAN MEHTA - 11/19/2014 10:04 CDT Subjective Pain Symptoms : Yes BRYAN MEHTA - 11/19/2014 10:04 CDT Pain Scale Pain Scale Verbal 0-10 : Open BRYAN MEHTA - 11/19/2014 10:04 CDT Pain Pain Assessment Grid Pain 1 Location : Other: mild to moderate contractions BRYAN MEHTA - 11/19/2014 10:04 CDT Dependent Habits Tobacco Use/Currently Using : Yes Exposure to Tobacco Smoke : Patient smokes Smoking Status : Current every day smoker BRYAN MEHTA - 11/19/2014 10:04 CDT Tobacco Use Grid Type : Cigarettes Cigarette Use Packs/Day : 0.4 BRYAN MEHTA 11/19/2014 10:04 CDT Caffeine Use Grid Caffeine Use : Current Type : Coffee, Soft drinks Frequency : Daily Amount : 2 pots BRYAN MEHTA - 11/19/2014 10:04 CDT Recreational Drug Use Grid Drug Use : None BRYAN MEHTA - 11/19/2014 10:04 CDT ID Screen Drug Resistant Organism : No Travel Within Last 21 Days : No Contact with someone with Ebola : No BRYAN MEHTA - 11/19/2014 10:04 CDT Source: [employer] Document Id: [id number] CDT!50 documented in this encounter Plan of Treatment Not on filedocumented as of this encounter Visit Diagnoses Not on filedocumented in this encounter
--- OUTSIDE RECORDS SUMMARY | 2022-02-22 12:40 | XMS_ITS | Encounter Summary ---
:1985 Author Organization [facility] Address [address] [place] [address] Care Team Providers Name Role Phone Unavailable Primary Care Provider Unavailable Encounter Details Date Type Department Care Team Description 09/04/2013 Hospital Encounter HX NO MAPPING Salvatore Flores M.D. [address] [place], [place] [phone] (Wo rk) Social History [...] or relatives? How often do you attend methodist or 1 to 4 times per year 05/18 denominational services? 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
--- OUTSIDE RECORDS SUMMARY | 2022-02-22 12:40 | XMS_ITS | Encounter Summary ---
:1985 Author Organization [facility] Address [address] [place] [address] Care Team Providers Name Role Phone Unavailable Primary Care Provider Unavailable Encounter Details Date Type Department Care Team Description 10/24/2012 Hospital Encounter HX NO MAPPING Ramesh Robert M.D. 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
--- OUTSIDE RECORDS SUMMARY | 2022-02-22 12:40 | XMS_ITS | Encounter Summary ---
:1985 Author Organization [facility] Address [address] [place] [address] Care Team Providers Name Role Phone Unavailable Primary Care Provider Unavailable Encounter Details Date Type Department Care Team Description 09/03/2013 Hospital Encounter HX [facility] Abbie Riojas M.D. 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 documented in this encounter Results Test, Qualitative, Urine (09/03/2013 11:42 AM DENTURE CONTOUR WIRE SPECIALIST) [facility] gist Method Time Signature HXBeta-hCG Positive POWERCHART Qualitative Urine Specimen (Source) Anatomical Collection Method Collection Time Re ceived Time Location / / Volume Laterality Urine 09/03/2013 11:42 AM DENTURE CONTOUR WIRE SPECIALIST Tejas Riojas M.D. LAB URINE ORDERABLES Performing Organization Address City/State/ZIP Code Phon e Number POWERCHART documented in this encounter Visit Diagnoses Not on filedocumented in this encounter
--- OUTSIDE RECORDS SUMMARY | 2022-02-22 12:40 | XMS_ITS | Encounter Summary ---
:1985 Author Organization [facility] Address [address] [place] [address] Care Team Providers Name Role Phone Unavailable Primary Care Provider Unavailable Encounter Details Date Type Department Care Team Description 10/25/2013 Hospital Encounter HX [facility] Osman M.D. 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 - 10/25/2013 12:50 PM CDT [id number] CHIEF COMPLAINT/REASON FOR VISIT Followup for ectopic with spontaneous loss. HISTORY OF PRESENT ILLNESS A 28-year-old, who was diagnosed with likely an ectopic several weeks ago. She had spontaneously falling HCG levels without pain and presents today for follow up of this. Her last beta HCG was October 11 and had dropped to level of 12.2. She has had a menses since her last level. No pain at this point. She has had some occasional very sharp quick pains on her side but nothing that is persisted and she feels well today. No exam performed today . IMPRESSION/REPORT/PLAN Ectopic , with spontaneous resolution. Will send her down for a follow up hCG again today with hopes of that being 0 and then subsequently discuss having her continue vitamins versus going on control. She will consider her options but is likely to try again soon and will stay on her vitamins. I would advise that her next to have an ultrasound that 5 to 6 weeks to verify intrauterine location of her next given the increased risk for subsequent ectopic . Max Robert M.D./cathy Electronically Signed By: MAX ROBERT MD On: 10/29/2013 07:53 AM Source: [facility] MHSDOLBEYNMARIA DE JESUS Document Id: [id number] documented in this encounter Miscellaneous Notes Miscellaneous - Max Robert M.D. - 10/25/2013 4:00 PM CDT Results Notification Document Contains Addenda Addendum by IRIS BROWN on 25 October 2013 16:10:01 CDT results given to pt From: MAX ROBERT MD To: LORI Robert Nurse; Sent: 10/25/2013 16:00:46 CDT Show up: 10/25/2013 16:01:00 CDT Subject: Results Notification Actions: Notify patient of results Results: Date Result Name Value Ref Range 10/25/2013 13:17 Beta hCG Qnt 0.5 mIU/mL ( - <=25.0) Source: [facility] [place] Document Id: [id number] Electronically signed by Kemal [facility] Expeditionary Fighting Vehicle Crewman [id number] at 12/13/2016 9:23 AM CDT Miscellaneous - Max Robert M.D. - 10/25/2013 1:37 PM CDT Ambulatory Patient Summary [address] [id number] Visit Information Name: PREET TURK [facility] Number: [id number] Current Date: 10/25/2013 13:37:59 Physicians Attending Provider: MAX ROBERT MD Primary Care Provider: ANUPAM BOONE MD [...] the Following Medications: Medication list as of 10-25-13 13:37 Attention: If you have any medications at home that are not on this list, DO NOT take them until youcontact your provider for clarification. Give a copy of your medication list to your primary care provider. Update your medication list any time medications or doses are changed and carry your medication list at all times in case of emergency. Electronically Signed By: MAX ROBERT MD Signed On:25-OCT-2013 13:37:53 Your Allergies & Intolerances Substance Reaction Symptoms [...] appointment detail needed. Your Goals/Additional instructions: Source: [facility] POWERCHART Document Id: [id number] Miscellaneous - Max Robert M.D. - 10/25/2013 1:37 PM CDT Ambulatory Discharge Medication List [address] [id number] Visit Information Name: SANDHYAA[facility]ERET [facility] Number: [id number] Visit Date: 10/25/2013 13:37:57 Attending Provider: MAX ROBERT MD Primary Care Provider: ANUPAM BOONE MD [...] the Following Medications: Medication list as of 10-25-13 13:37 Attention: If you have any medications at home that are not on this list, DO NOT take them until youcontact your provider for clarification. Give a copy of your medication list to your primary care provider. Update your medication list any time medications or doses are changed and carry your medication list at all times in case of emergency. Electronically Signed By: MAX ROBERT MD Signed On:25-OCT-2013 13:37:53 Additional Information: Source: [facility] POWERCHART Document Id: [id number] Miscellaneous - Iris Brown, L.P.N. - 10/25/2013 12:53 PM CDT Adult Carbon Cutter Intake/History Adult Carbon Cutter Intake/History Entered On: 10/25/2013 12:56 CDT Performed On: 10/25/2013 12:53 CDT by IRIS BROWN Intake Chief Complaint : follow-up missed AB Systolic Blood Pressure : 100 mmHg Diastolic Blood Pressure : 68 mmHg NIBP Mean : 79 mmHg BP Location : Left upper extremity Blood Pressure Cuff Size : Regular IRIS BROWN - 10/25/2013 12:53 CDT General Info Languages : Icelandic IRIS BROWN - 10/25/2013 12:53 CDT Subjective Pain Symptoms : No IRIS BROWN - 10/25/2013 12:53 CDT Dependent Habits Tobacco Use/Currently Using : Yes Exposure to Tobacco Smoke : Patient smokes Smoking Status : Current every day smoker IRIS BROWN - 10/25/2013 12:53 CDT Tobacco Use Grid Type : Cigarettes Cigarette Use Packs/Day : 0.5 IRIS BROWN - 10/25/2013 12:53 CDT Caffeine Use Grid Caffeine Use : Current Type : Coffee, Soft drinks Frequency : Daily Amount : 2 pots IRIS BRWON - 10/25/2013 12:53 CDT Recreational Drug Use Grid Drug Use : None IRIS BROWN - 10/25/2013 12:53 CDT Source: [facility] POWERCHART Document Id: [id number] documented in this encounter Plan of Treatment Not on filedocumented as of this encounter Procedures Procedure Name Priority Date/Time Associated Diagnosis Comme nts BHCG (BETA-HUMAN Routine 10/25/2013 1:17 PM Resul ts for this CHORIONIC CDT procedure are i n GONADOTROPIN), the results GABRIEL, S section. documented in this encounter Results bHCG (Beta-Human Chorionic Gonadotropin), Quantitative (10/25/2013 1:17 PM CDT) P athologist Signature Beta-HCG, 0.5 <=25.0 POWERCHART Quantitative, S MIUML Specimen (Source) Anatomical Collection Method Collection Time Re ceived Time Location / / Volume Laterality Blood 10/25/2013 1:17 PM CDT Max Robert M.D. LAB BLOOD ADD-ON Performing Organization Address City/State/ZIP Code Phon e Number POWERCHART documented in this encounter Visit Diagnoses Not on filedocumented in this encounter
--- OUTSIDE RECORDS SUMMARY | 2022-02-22 12:40 | XMS_ITS | Encounter Summary ---
:1985 Author Organization [facility] Address [address] [place] [address] Care Team Providers Name Role Phone Unavailable Primary Care Provider Unavailable Encounter Details Date Type Department Care Team Description 09/14/2013 Hospital Encounter HX [facility] LAB Max Robert M.D. [address] [place], [place] [phone] (Wo rk) Social History Tobacco Use Types [...] Date Recorded Female 06/09/2021 2:09 PM WOOD SAWYER documented as of this encounter Miscellaneous Notes Miscellaneous - Max Robert M.D. - 09/17/2013 8:04 AM CST Results Notification Document Contains Addenda Addendum by YOSI REY on 17 September 2013 15:12:28 WOOD SAWYER results given . she is to recheck Beta next wk. she sees Merritt on the and we will have her drawnBeta along with her NOB labs From: MAX ROBERT MD To: LORI Robert Nurse; Sent: 09/17/2013 08:04:01 WOOD SAWYER Show up: 09/17/2013 08:04:00 WOOD SAWYER Subject: Results Notification need repeat bhcg this week Results: Date Result Name Ind Value Ref Range 09/14/2013 09:43 Progesterone Lvl 0.72 ng/mL 09/14/2013 09:43 Beta hCG Qnt (H) 99.3 mIU/mL ( - <=25.0) Source: [facility] [employer] Document Id: [id number] documented in this encounter Plan of Treatment Not on filedocumented as of this encounter Procedures Procedure Name Priority Date/Time Associated Diagnosis Comme nts BHCG (BETA-HUMAN Routine 09/14/2013 9:43 AM Resul ts for this CHORIONIC WOOD SAWYER procedure are i n GONADOTROPIN), the results GABRIEL, S section. PROGESTERONE, S Routine 09/14/2013 9:43 AM Result s for this WOOD SAWYER procedure are i n the results section. documented in this encounter Results Progesterone Level (09/14/2013 9:43 AM WOOD SAWYER) P athologist Signature Progesterone, S 0.72 NGML POWERCHART Specimen (Source) Anatomical Collection Method Collection Time Re ceived Time Location / / Volume Laterality Blood 09/14/2013 9:43 AM WOOD SAWYER Max Robert M.D. LAB BLOOD ADD-ON Performing Organization Address City/State/ZIP Code Phon e Number POWERCHART (ABNORMAL) bHCG (Beta-Human Chorionic Gonadotropin), Quantitative (09/14/2013 9:43 AM WOOD SAWYER) P athologist Signature Beta-HCG, 99.3 (H) <=25.0 POWERCHART Quantitative, JACLYNUMVolodymyr S Specimen (Source) Anatomical Collection Method Collection Time Re ceived Time Location / / Volume Laterality Blood 09/14/2013 9:43 AM WOOD SAWYER Max Robert M.D. LAB BLOOD ADD-ON Performing Organization Address City/State/ZIP Code Phon e Number POWERCHART documented in this encounter Visit Diagnoses Not on filedocumented in this encounter
--- OUTSIDE RECORDS SUMMARY | 2022-02-22 12:40 | XMS_ITS | Encounter Summary ---
:1985 Author Organization [facility] Address [address] [place] [address] Care Team Providers Name Role Phone Unavailable Primary Care Provider Unavailable Encounter Details Date Type Department Care Team Description 10/18/2012 Hospital Encounter HX [facility] Bekah Chavez M.D. 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 documented in this encounter Results US OB Follow Up or Repeat (10/18/2012 1:20 PM CDT) Anatomical Region Laterality Modality Ultrasound Specimen (Source) Anatomical Collection Method Collection Time Re ceived Time Location / / Volume Laterality 10/18/2012 1:20 PM CDT Addenda Addendum by Provider, Pippa Yeung 10/18/2012 1:20 PM CDT RAD^^^OW US OB Follow Up or Repeat 10/18/2012 13:20:00 Impressions 10/18/2012 1:40 PM CDT 1. Limited anatomy survey as above . 2. Estimated weight is consistent with the 31 percentile of growth, which is interpreted as appropri ate and normal interval growth. Narrative 10/18/2012 1:40 PM CDT EXAM: US OB Follow Up or Repeat INDICATION: Growth COMPARISON: September 27, 2012 REFERRING PHYSICIAN: Dr. Robert CRIMINAL COURT JUDGE: Carmen Oreilly RDMS. : 1 PARA: 0 LMP: January 28, 2012 HAJA by LMP: November 03, 2012 GESTATIONAL AGE: 37 weeks and ? days . PLACENTAL LOCATION: Anterior UTERUS: Normal ADNEXA: Normal S/D Ratio: N/A POSITION: Vertex AMNIOTIC FLUID INDEX: 18.3 cm. STOMACH: Normal KIDNEYS: Normal BLADDER: Normal HEART: Normal HEART RATE: 123 beats per minute. BIOMETRY GA(BPD): 8.33 cm 33 weeks and 3 days GA(HC): 31.1 cm 34 weeks and 5 days GA(AC): 31.9 cm 35 weeks and 5 days GA(FL): 7.3 cm, 37 weeks and 1 day GA(HL): 6.16 cm, 35 weeks and 5 days Multiple measurements of the biparietal diameter, head circumference, abdominal circumference, and femur lengt h reveal an estimated weight of 2780 grams. This can be roughl y equated to an ultrasound calculation of HAJA of November 21, 2012. Procedure Note Jeronimo Dyer M.D. / Provider, Harry will M.D. - 12/02/2016 EXAM: US OB Follow Up or Repeat INDICATION: Growth COMPARISON: September 27, 2012 REFERRING PHYSICIAN: Dr. Robret CRIMINAL COURT JUDGE: Carmen Oreilly RDMS. : 1 PARA: 0 LMP: January 28, 2012 HAJA by LMP: November 03, 2012 GESTATIONAL AGE: 37 weeks and days. PLACENTAL LOCATION: Anterior UTERUS: Normal ADNEXA: Normal S/D Ratio: N/A POSITION: Vertex AMNIOTIC FLUID INDEX: 18.3 cm. STOMACH: Normal KIDNEYS: Normal BLADDER: Normal HEART: Normal HEART RATE: 123 beats per minute. BIOMETRY GA(BPD): 8.33 cm 33 weeks and 3 days GA(HC): 31.1 cm 34 weeks and 5 days GA(AC): 31.9 cm 35 weeks and 5 days GA(FL): 7.3 cm, 37 weeks and 1 day GA(HL): 6.16 cm, 35 weeks and 5 days Multiple measurements of the biparietal diameter, head circumference, abdominal circumference, and femur lengt h reveal an estimated weight of 2780 grams. This can be roughl y equated to an ultrasound calculation of HAJA of November 21, 2012. IMPRESSION: 1. Limited anatomy survey as above . 2. Estimated weight is consistent with the 31 percentile of growth, which is interpreted as appropri ate and normal interval growth. Carmen Oreilly R.V.T., RLevonM.S. IMG OB US PROCEDURE S documented in this encounter Visit Diagnoses Not on filedocumented in this encounter
--- OUTSIDE RECORDS SUMMARY | 2022-02-22 12:40 | XMS_ITS | Encounter Summary ---
:1985 Author Organization [facility] Address [address] [place] [address] Care Team Providers Name Role Phone Unavailable Primary Care Provider Unavailable Encounter Details Date Type Department Care Team Description 06/10/2013 Hospital Encounter HX NO MAPPING Evelio Infante M.D. 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
--- OUTSIDE RECORDS SUMMARY | 2022-02-22 12:40 | XMS_ITS | Encounter Summary ---
:1985 Author Organization [facility] Address [address] [place] [address] Care Team Providers Name Role Phone Unavailable Primary Care Provider Unavailable Encounter Details Date Type Department Care Team Description 10/12/2012 Hospital Encounter HX NO MAPPING Sari Shultz M.D. [address], [place] [phone] (Wo rk) Social History [...] 1 to 4 times per year 05/18 adventism services? 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
--- OUTSIDE RECORDS SUMMARY | 2022-02-22 12:40 | XMS_ITS | Encounter Summary ---
:1985 Author Organization [facility] Address [address] [place] [address] Care Team Providers Name Role Phone Unavailable Primary Care Provider Unavailable Encounter Details Date Type Department Care Team Description 10/05/2012 Hospital Encounter HX [facility] Jessy Douglas M.D. 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 - 10/05/2012 9:03 AM CDT [id number] CHIEF COMPLAINT / REASON FOR VISIT care. HISTORY OF PRESENT ILLNESS Preet is a 27-year-old gravid 1, para 0 with a history of kidney stones and seizure disorder. She has stopped taking her seizure medicines 3 days ago and was in Labor and Delivery last night after suffering a seizure. She has otherwise done well and since the seizure the baby has been moving and she has had no contractions. She relates that Dr. Robert told her that she might go into labor this week based on his exam last week. VITAL SIGNS BLOOD PRESSURE: 108/66. WEIGHT: 64.8 kilograms, a 1 kilograms increase from her last visit. Fundal height is 34.5 cm. The is vertex by Moises maneuvers. heart tones show a 140 heart tone. Cervix is midposition, fingertip to 1 cm, 30% effaced with the vertex in a -1 to 0 station and soft. IMPRESSION / REPORT / PLAN 1. Intrauterine at 35 weeks. 2. Recent seizure because the patient stopped taking her seizure medication. I have refilled her seizure medication. I have also provided her with a different vitamin because she said her vitamin was causing her too much indigestion and causing bravo inside her cheeks. I discussed with her my recommendation that I believe this is due to acid in the stomach and that she should consider adding an antacid with each meal to see if that would help. The patient is comfortable with this. She will see Dr. Robert in 1 week. Jessy Spears M.D./vlad cc: Labor and Delivery Ramesh Robert M.D. Electronically Signed By: JESSY SPEARS MD On: 10/05/2012 04:00 PM Source: [facility] MHSDOLBEYNONRADSYS Document Id: [id number] documented in this encounter Miscellaneous Notes Miscellaneous - Jessy Spears M.D. - 10/05/2012 9:26 AM CDT Ambulatory Patient Summary [facility] [address] [place] [address] Visit Information Name: PREET TURK [facility] Number: [id number] Current Date: 10/05/2012 09:26:53 Physicians Attending Provider: JESSY SPEARS MD Primary Care Provider: PCP, ELSEWHERE Your Medications Here is a list of your medications. It is important to take your medications as directed. Use a pillbox or chart to help remind you to take your medications. Please let your doctor or nurse know if you have problems taking your medications. Medication/Strength Dose Route Frequency Indications/Special Instructions/Comments multivitamin, ( 19 oral tablet, chewable) 1 tab(s) Oral once a day carbamazepine (carbamazepine 200 mg oral tablet) 400 mg Oral two times a day Attention: If you have any medications at home that are not on this list, DO NOT take them until youcontact your provider for clarification. 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 Epilepsy NOS, not intractable Active 01/06/2012 Tobacco dependence Active Nephrolithiasis NOS Active Adopted Active Alcoholism in Family Active 01/06/12 Mother Your Upcoming Appointments Date Time Location Reason Provider 10/09/2012 13:45 [facility] INTERNATIONAL PROJECT ENGINEER 2wk ob check Ramesh Robert MD 10/25/2012 09:30 [facility] INTERNATIONAL PROJECT ENGINEER growth check per srinivas 10/25/2012 10:00 [facility] INTERNATIONAL PROJECT ENGINEER growth check per Ramesh Chiu MD Your Goals/Additional instructions: Source: [facility] POWERCHART Document Id: [id number] Miscellaneous - Jessy Spears M.D. - 10/05/2012 9:26 AM CDT Ambulatory Depart Summary [facility] [address] [place] [address] Visit Information Name: PREET TURK [facility] Number: [id number] Visit Date: 10/05/2012 09:26:52 Attending Provider: JESSY SPEARS MD Primary Care Provider: PCP, ELSEWHERE PREET TURK has been given the following list of medications: Your Medications It is important to take your medications as directed. Use a pill box or chart to help remind you to take your medications. Please let your doctor or nurse know if you have problems taking your medications. Medication/Strength Dose Route Frequency Indications/Special Instructions/Comments multivitamin, ( 19 oral tablet, chewable) 1 tab(s) Oral once a day carbamazepine (carbamazepine 200 mg oral tablet) 400 mg Oral two times a day Attention: If you have any medications at home that are not on this list, DO NOT take them until youcontact your provider for clarification. Additional Information: Source: [facility] POWERCHART Document Id: [id number] Miscellaneous - Gayathri Gutierrez, L.P.N. - 10/05/2012 9:13 AM CDT Adult Lean Manufacturing Specialist Intake/History Adult Lean Manufacturing Specialist Intake/History Entered On: 10/05/2012 9:16 CDT Performed On: 10/05/2012 9:13 CDT by GAYATHRI GUTIERREZ Intake Chief Complaint : Ob check - see ACOG Pt states had seizure lastnight; was monitored at L&D Ambulatory Intake Additional Information : 35 5/7 weeks gestation Systolic Blood Pressure : 108mmHg Diastolic Blood Pressure : 66mmHg NIBP Mean : 80mmHg BP Location : Left upper extremity Blood Pressure Cuff Size : Regular Actual Weight : 64.8kg(Converted to: 142lb 14oz) Dosing Weight Clinic : 64.80kg GAYATHRI GUTIERREZ - 10/05/2012 9:13 CDT General Info Languages : Gibraltarian GAYATHRI GUTIERREZ M - 10/05/2012 9:13 CDT Subjective Pain Symptoms : No GAYATHRI GUTIERREZ 10/05/2012 9:13 CDT Dependent Habits Tobacco Use/Currently Using : Yes Exposure to Tobacco Smoke : Patient smokes Smoking Status : Current every day smoker GAYATHRI GUTIERREZ - 10/05/2012 9:13 CDT Tobacco Use Grid Type : Cigarettes Cigarette Use Packs/Day : 0.2 GAYATHRI GUTIERREZ - 10/05/2012 9:13 CDT Caffeine Use Grid Caffeine Use : Current Type : Coffee, Soft drinks Frequency : Daily Amount : 5 POTS GAYATHRI GUTIERREZ - 10/05/2012 9:13 CDT Recreational Drug Use Grid Drug Use : None GAYATHRI GUTIERREZ 10/05/2012 9:13 CDT Allergy Allergies (Active) Vicodin Estimated Onset Date: Unspecified ; Reactions: Hives, Breathing ; Created By: GARRETT JARRELL; Reaction Status: Active ; Category: Drug ; Substance: Vicodin ; Type: Allergy ; Severity: Severe ; Updated By: GARRETT JARRELL; Reviewed Date: 10/05/2012 9:10 CDT Source: [facility] [employer] Document Id: [id number] documented in this encounter Plan of Treatment Not on filedocumented as of this encounter Visit Diagnoses Not on filedocumented in this encounter
--- OUTSIDE RECORDS SUMMARY | 2022-02-22 12:40 | XMS_ITS | Encounter Summary ---
:1985 Author Organization [facility] Address [address] [place] [address] Care Team Providers Name Role Phone Unavailable Primary Care Provider Unavailable Encounter Details Date Type Department Care Team Description 10/10/2012 Hospital Encounter HX [facility] Osman M.D. 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 - 10/10/2012 2:49 PM CDT [id number] CHIEF COMPLAINT / REASON FOR VISIT Obstetrical followup. HISTORY OF PRESENT ILLNESS The patient is a 27-year-old 1, para 0 with a known seizure disorder. She has been a bit noncompliant as far as consistently taking her carbamazepine. She recently either ran out or discontinued it and had a seizure documented. She was seen in the ER for this. She had a low Tegretol level noted at that time. She has been restarted on her medications, was given roughly a 3-week supply. This was refilled for her requesting a 3-month supply and 3 refills. No other concerns noted today. On exam, she is well appearing. Abdomen is gravid and nontender. BLOOD PRESSURE: 112/62 WEIGHT: 63.8 kg. Heart tones appreciated in the 140s. Fundal height 35 cm. She does have some periumbilical bruising noted. Cervix is 1, 50 and 0. IMPRESSION / REPORT / PLAN Easy bruising with seizure disorder. We will send her for CBC, PT and PTT to rule out a platelet or bleeding diaphysis at this point. She denies other forms of bleeding. No blood in the urine. No bloodwith brushing her teeth, bloody noses or other issues other than the periumbilical bruising. We willinform her of these results after they are drawn and results are available. Otherwise we will see her weekly in followup and recommend an ultrasound next week to document normal interval growth. We will consider induction of labor with a favorable cervix at around 38 to 39 weeks' depending on how she is doing with her seizure disorder at that point. Max Robert M.D./ritika cc: Labor and Delivery Electronically Signed By: MAX ROBERT MD On: 10/11/2012 11:57 AM Source: [facility] MHSDOLBEYNONRADSYS Document Id: [id number] documented in this encounter Miscellaneous Notes Miscellaneous - Max Robert M.D. - 10/10/2012 4:25 PM CDT Ambulatory Patient Summary [employer] [address] [place] [id number] Visit Information Name: PREET TURK [facility] Number: [id number] Current Date: 10/10/2012 16:25:26 Physicians Attending Provider: MAX ROBERT MD Primary Care Provider: PCP, ELSEWHERE Your Medications Here is a list of your medications. It is important to take your medications as directed. Use a pillbox or chart to help remind you to take your medications. Please let your doctor or nurse know if you have problems taking your medications. Medication/Strength Dose Route Frequency Indications/Special Instructions/Comments carbamazepine (carbamazepine 200 mg oral tablet) 400 mg Oral two times a day multivitamin, ( 19 oral tablet, chewable) 1 tab(s) Oral once a day Attention: If you have any [...] Upcoming Appointments Date Time Location Reason Provider 10/11/2012 08:00 [facility] Lab 10/18/2012 13:00 [facility] ENVIRONMENTAL ADVISOR us growth 1 wk 10/18/2012 13:30 [facility] ENVIRONMENTAL ADVISOR ob check Max Robert MD 10/25/2012 09:30 [facility] ENVIRONMENTAL ADVISOR growth check per srinivas 10/25/2012 10:00 [facility] ENVIRONMENTAL ADVISOR growth check per Max Chiu MD Your Goals/Additional instructions: Source: [facility] POWERCHART Document Id: [id number] Adrianecellcristofer - Max Robert M.D. - 10/10/2012 4:25 PM CDT Ambulatory Depart Summary [address] [address] Visit Information Name: PREET TURK [facility] Number: [id number] Visit Date: 10/10/2012 16:25:25 Attending Provider: MAX ROBERT MD Primary Care Provider: PCP, PREET MONROY has been given the following list of medications: Your Medications It is important to take your medications as directed. Use a pill box or chart to help remind you to take your medications. Please let your doctor or nurse know if you have problems taking your medications. Medication/Strength Dose Route Frequency Indications/Special Instructions/Comments carbamazepine (carbamazepine 200 mg oral tablet) 400 mg Oral two times a day multivitamin, ( 19 oral tablet, chewable) 1 tab(s) Oral once a day Attention: If you have any medications at home that are not on this list, DO NOT take them until youcontact your provider for clarification. Additional Information: Source: [facility] POWERCHART Document Id: [id number] Miscellaneous - Iris Brown, L.P.N. - 10/10/2012 2:52 PM CDT Adult Print Graphic Designer Intake/History Adult Print Graphic Designer Intake/History Entered On: 10/10/2012 14:55 CDT Performed On: 10/10/2012 14:52 CDT by IRIS BROWN Intake Chief Complaint : 36 4/7 wk ob check Systolic Blood Pressure : 112mmHg Diastolic Blood Pressure : 62mmHg NIBP Mean : 79mmHg BP Location : Left upper extremity Blood Pressure Cuff Size : Regular Actual Weight : 63.8kg(Converted to: 140lb 10oz) Dosing Weight Clinic : 63.80kg IRIS BROWN - 10/10/2012 14:52 CDT General Info Languages : Tajik IRIS BROWN - 10/10/2012 14:52 CDT Subjective Pain Symptoms : No IRIS BROWN - 10/10/2012 14:52 CDT Dependent Habits Tobacco Use/Currently Using : Yes Exposure to Tobacco Smoke : Patient smokes Smoking Status : Current every day smoker IRIS BROWN - 10/10/2012 14:52 CDT Tobacco Use Grid Type : Cigarettes Cigarette Use Packs/Day : 0.2 IRIS BROWN - 10/10/2012 14:52 CDT Caffeine Use Grid Caffeine Use : Current Type : Coffee, Soft drinks Frequency : Daily Amount : 5 POTS IRIS BROWN 10/10/2012 14:52 CDT Recreational Drug Use Grid Drug Use : None IRIS BROWN - 10/10/2012 14:52 CDT Allergy Allergies (Active) Vicodin Estimated Onset Date: Unspecified ; Reactions: Hives, Breathing ; Created By: GARRETT JARRELL; Reaction Status: Active ; Category: Drug ; Substance: Vicodin ; Type: Allergy ; Severity: Severe ; Updated By: GARRETT JARRELL; Reviewed Date: 10/10/2012 14:52 CDT Source: [facility] Document Id: [id number] documented in this encounter Plan of Treatment Not on filedocumented as of this encounter Procedures Procedure Name Priority Date/Time Associated Comments Diagnosis URINALYSIS WITH Routine 10/10/2012 3:44 PM Result s for this MICROSCOPIC CDT procedure are i n the results section. documented in this encounter Results (ABNORMAL) Urinalysis, Complete, Includes Microscopic (10/10/2012 3:44 PM CDT) [facility] Method Time Signature Source Clean Void POWERCHART Urine HXUr Color STRAW POWERCHART Glucose Negative Negative POWERCHART HXBILIRUBIN Negative Negative POWERCHART Ketones, QL(U) Negative Negative POWERCHART Specific 1.015 >=1.030 POWERCHART [place], POCT, U pH, POCT, Urine 6.5 8.5 POWERCHART Protein, Ur, Dip Negative Negative POWERCHART Urobilinogen 0.2 1.0 POWERCHART HXNITRITE Negative Negative POWERCHART HXBLOOD Small (A) Negative POWERCHART Leukocyte Negative Negative POWERCHART Esterase HXUr WBC 0-5 0 - 5 POWERCHART Red Blood Cell 0-3 0 - 3 POWERCHART Clump, Urine Specimen (Source) Anatomical Collection Method Collection Time Re ceived Time Location / / Volume Laterality Urine 10/10/2012 3:44 PM CDT Max Robert M.D. LAB URINE ORDERABLES Performing Organization Address City/State/ZIP Code Phon e Number POWERCHART documented in this encounter Visit Diagnoses Not on filedocumented in this encounter
--- OUTSIDE RECORDS SUMMARY | 2022-02-22 12:40 | XMS_ITS | Encounter Summary ---
:1985 Author Organization [facility] Address [address] [place] [address] Care Team Providers Name Role Phone Unavailable Primary Care Provider Unavailable Encounter Details Date Type Department Care Team Description 10/11/2012 Hospital Encounter HX [facility] Max Robert M.D. 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 - 10/11/2012 11:57 AM CDT Results Notification Document Contains Addenda Addendum by YOSI REY on 11 October 2012 15:35:10 CDT result given to pt by phone From: MAX ROBERT MD To: YOSI REY Sent: 10/11/2012 11:57:07 CDT ! Show up: 10/11/2012 16:57:07 [facility] Subject: Results Notification Actions: Notify patient-refer to General Message Source: [facility] Document Id: [id number] Electronically signed by Conversion, [facility] Community Sports Coordinator [id number] at 12/14/2016 12:06 PM CDT documented in this encounter Plan of Treatment Not on filedocumented as of this encounter Procedures Procedure Name Priority Date/Time Associated Comments Diagnosis AUTOMATED DIFFERENTIAL, Routine 10/11/2012 8:23 AM Results for this B CDT procedure are i n the results section. ACTIVATED PARTIAL Routine 10/11/2012 8:23 AM Resu lts for this THROMBOPLASTIN TIME CDT procedur e are in (APTT), P the results section. PROTHROMBIN TIME (PT), Routine 10/11/2012 8:23 AM Results for this P CDT procedure are i n the results section. CBC WITH DIFFERENTIAL, Routine 10/11/2012 8:23 AM Results for this B CDT procedure are i n the results section. documented in this encounter Results (ABNORMAL) Automated Differential (10/11/2012 8:23 AM CDT) [facility] Method Time Signature Neutro % 66.9 44.0 - POWERCHART 69.0 Lymphocytes % 21.7 18.0 - POWERCHART 44.1 HX [place] % 10.3 5.0 - 11.7 POWERCHART HX Eos % 0.7 (L) 0.8 - 3.1 POWERCHART HX Baso % 0.4 0.2 - 1.4 POWERCHART Absolute 8.52 (H) 1.70 - POWERCHART Neutrophils 7.00 109L Lymphocytes 2.77 0.90 - POWERCHART 2.90 X109L Monocytes 1.31 (H) 0.30 - POWERCHART 0.90 X109L Eosinophils 0.09 0.05 - POWERCHART 0.50 X109L Absolute 0.05 0.00 - POWERCHART Basophil 0.30 X109L Specimen Anatomical Collection Method Collection Time Receive d Time (Source) Location / / Volume Laterality Blood 10/11/2012 8:23 AM 3 8:23 CDT AM CDT Max Robert M.D. LAB BLOOD ADD-ON Performing Organization Address City/[facility] Code Phon e Number POWERCHART (ABNORMAL) APTT (Activated Partial Thromboplastin Time) (10/11/2012 8:23 AM CDT) [facility] [employer] Method Time Signature Prothrombin 25.0 (L) 29.8 - 59.0 POWERCHART Time, P SECONDS Specimen (Source) Anatomical Collection Method Collection Time Re ceived Time Location / / Volume Laterality Blood 10/11/2012 8:23 AM CDT Max Robert M.D. LAB BLOOD ADD-ON Performing Organization Address City/[facility] Code Phon e Number POWERCHART (ABNORMAL) PT (Prothrombin Time) with INR (10/11/2012 8:23 AM CDT) [facility] [employer] Method Time Signature Prothrombin 11.3 (L) 13.5 - 14.0 POWERCHART Time, P SECONDS Comment: Non-Therapeutic reference range 11.2 - 1 5.1 seconds Therapeutic reference range 20.6 - 43.8 seconds INR 0.83 POWERCHART Comment: Non-therapeutic range 0.8 - 1.2 Therapeutic reference range 1.7 - 3.8 Specimen (Source) Anatomical Collection Method Collection Time Re ceived Time Location / / Volume Laterality Blood 10/11/2012 8:23 AM CDT Max Robert M.D. LAB BLOOD ADD-ON Performing Organization Address City/State/[facility] Code Phon e Number POWERCHART (ABNORMAL) CBC with Differential (10/11/2012 8:23 AM CDT) Analysis Performed At Patho logist Time Signature Leukocytes 12.7 (H) 3.4 - 10.5 POWERCHART X109L Erythrocytes 4.34 3.90 - POWERCHART 5.03 [id number] Hemoglobin 12.6 12.0 - POWERCHART 15.5 GDL Hematocrit 38.8 34.9 - POWERCHART 44.5 MCV 89.4 82.0 - POWERCHART 98.0 FL HX RDW 13.2 11.9 - POWERCHART 15.5 Platelet Count 297 150 - 450 POWERCHART X109L Specimen (Source) Anatomical Collection Method Collection Time Re ceived Time Location / / Volume Laterality Blood 10/11/2012 8:23 AM CDT Max Robert M.D. LAB BLOOD ADD-ON Performing Organization Address City/State/[facility] Code Phon e Number POWERCHART documented in this encounter Visit Diagnoses Not on filedocumented in this encounter
--- OUTSIDE RECORDS SUMMARY | 2022-02-22 12:40 | XMS_ITS | Encounter Summary ---
:1985 Author Organization [facility] Address [address] [place] [address] Care Team Providers Name Role Phone Unavailable Primary Care Provider Unavailable Encounter Details Date Type Department Care Team Description 06/10/2013 Hospital Encounter HX NO MAPPING Sari Shultz M.D. 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
--- OUTSIDE RECORDS SUMMARY | 2022-02-22 12:40 | XMS_ITS | Encounter Summary ---
:1985 Author Organization [facility] Address [address] [place] [address] Care Team Providers Name Role Phone Unavailable Primary Care Provider Unavailable Encounter Details Date Type Department Care Team Description 09/23/2013 Hospital Encounter HX [facility] Osman M.D. 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 - 09/23/2013 11:47 AM CDT nob education/intake appt Individual consult for NOB intake and education. Please refer to ACOG form. Subjective:H/O seizure disorder--taking medication. States that she continues to have some light spotting-has had levels drawn previously and to have drawn again today. Objective: G__2__; P_1___; LMP:_07/27/13___; EDC:_05/03/14___; Height:_164.6cm__; Pregravid Wt:_58kg___; BMI:_21___; Suggested Wt gain:_25-35#___ Lead Screen:neg Teaching Method: __x__Verbal discussion; __x__Printed materials; ____Demonstration Readiness to Learn: _x___Accepting; ____Low interest; ____Refuse; ____Unable to learn at this time (barriers) Stages of Behavior Change: ____Pre-comtemplation; ____Contemplation; ____Preparation; __x__Action; ____Maintenance Outcomes and Reinforcement: _x____Verbalizes understanding; ____Needs Reinforcement Plan: _x__Instructed/reviewed: weight gain recommendation/nutrient needs in /exercise/food safety issues//caffeine/fish ___Public Health Referral; _x__WIC ___Dietitian Referral d/t _x__Follow-up with MD at scheduled appt., earlier if needed _x__[facility] Recommendations signed and witnessed Recommendations: Encouraged to call with questions or concerns. Materials Provided: _x__Beginnings: , and Beyond-[facility] x__[facility] Folder _x__Maternal Serum Screening-[place] x__Cystic Fibrosis Carrier Testing-[place] _x__First Trimester Screening for Down Syndrome-[place] _x_[facility] Guide to Healty -[place] _x__Listeriosis and -[facility] x__A Family Guide to Eating Fish-[facility] _x__Tdap Vaccine for Women-[place] Electronically Signed By: DANILO ACUNA On: 09/23/2013 11:49 AM Source: [employer] Document Id: [id number] Danilo Acuna RFlexN. - 09/23/2013 11:46 AM CDT Nurse Only Documentation Nurse Only Documentation Entered On: 09/23/2013 11:47 CDT Performed On: 09/23/2013 11:46 CDT by DANILO ACUNA Nurse Only Documentation Nurse Only Visit Documentation : NOB education/intake appt-no charge appt DANILO ACUNA - 09/23/2013 11:46 CDT Source: [facility] [employer] Document Id: [id number] CDT!3 documented in this encounter Miscellaneous Notes Miscellaneous - Danilo Acuna RYeyo. - 09/23/2013 11:09 AM CDT Adult Reports Developer Intake/History Adult Reports Developer Intake/History Entered On: 09/23/2013 11:21 CDT Performed On: 09/23/2013 11:09 CDT by DANILO ACUNA Intake Chief Complaint : nob education/intake appt EDC:05/03/14 LMP Date : 07/27/13 Height : 164.6 cm(Converted to: 5 ft 5 inch(es), 65 inch(es)) Actual Weight : 58 kg(Converted to: 127 lb 14 oz) Dosing Weight Clinic : 58 kg Clinic BSA : 1.63 Body Mass Index : 21.41 kg/m2 DANILO ACUNA - 09/23/2013 11:09 CDT General Info Information Given By : Patient Languages : Cameroonian DANILO ACUNA - 09/23/2013 11:09 CDT Subjective Pain Symptoms : No DANILO ACUNA - 09/23/2013 11:09 CDT Dependent Habits Tobacco Use/Currently Using : Yes Tobacco Use/Advised to Quit : Yes Exposure to Tobacco Smoke : Patient smokes Smoking Status : Current every day smoker DANILO ACUNA - 09/23/2013 11:09 CDT Tobacco Use Grid Type : Cigarettes Cigarette Use Packs/Day : 0.5 DANILO ACUNA - 09/23/2013 11:09 CDT Caffeine Use Grid Caffeine Use : Current Type : Coffee, Soft drinks Frequency : Daily Amount : 2 pots DANILO ACUNA - 09/23/2013 11:09 CDT Recreational Drug Use Grid Drug Use : None DANILO ACUNA - 09/23/2013 11:09 CDT Source: [employer] Document Id: [id number] CDT!32 documented in this encounter Plan of Treatment Not on filedocumented as of this encounter Procedures Procedure Name Priority Date/Time Associated Comments Diagnosis HXUR % DYSMORPHIC RBC Routine 09/23/2013 11:55 Re sults for this AM CDT procedure are i n the results section. URINALYSIS, ROUTINE Routine 09/23/2013 11:55 Resu lts for this AM CDT procedure are i n the results section. URINE MICROSCOPIC Routine 09/23/2013 11:55 Result s for this AM CDT procedure are i n the results section. BACTERIAL CULTURE, Routine 09/23/2013 11:55 Resul ts for this AEROBIC, URINE AM CDT procedure are in the results section. HXZZORDERS Routine 09/23/2013 11:52 Results for this AM CDT procedure are i n the results section. ABO GROUPING, B Routine 09/23/2013 11:52 Results for this AM CDT procedure are i n the results section. PROFILE II Routine 09/23/2013 11:52 Resu lts for this WITHOUT CBC, B/SERUM AM CDT procedu re are in the results section. AUTOMATED Routine 09/23/2013 11:52 Results for this DIFFERENTIAL, B AM CDT procedure ar e in the results section. BHCG (BETA-HUMAN Routine 09/23/2013 11:52 Results for this CHORIONIC AM CDT procedure are i n GONADOTROPIN), GABRIEL, the res ults S section. CBC WITH Routine 09/23/2013 11:52 Results for this DIFFERENTIAL, B AM CDT procedure ar e in the results section. ANTIBODY SCREEN, B Routine 09/23/2013 11:52 Resul ts for this AM CDT procedure are i n the results section. documented in this encounter Results HXUR % DYSMORPHIC RBC (09/23/2013 11:55 AM CDT) athologist Signature Dysmorphic RBC <=25 <=25 POWERCHART Specimen Anatomical Collection Method Collection Time Receive d Time (Source) Location / / Volume Laterality Urine 09/23/2013 11:55 09/23/2013 AM CDT 11:55 AM CDT Ramesh Robert M.D. LAB HISTORICAL ORDERS Performing Organization Address City/[facility] Code Phon e Number POWERCHART Urine Microscopic (09/23/2013 11:55 AM CDT) [facility] Method Time Signature HXUr WBC 1-3 POWERCHART Red Blood Cell 3-10 0 - 2 POWERCHART Clump, Urine HXUr Epithelial Few 0 - 5 POWERCHART HXUr Bacteria Few POWERCHART Crystals None Seen None Seen POWERCHART HX Ur Casts None Seen None Seen POWERCHART HX MUCOUS Small POWERCHART THREADS Specimen Anatomical Collection Method Collection Time Receive d Time (Source) Location / / Volume Laterality Urine 09/23/2013 11:55 09/23/2013 AM CDT 11:55 AM CDT Ramesh Robert M.D. LAB URINE ORDERABLES Performing Organization Address [facility] Code Phon e Number POWERCHART (ABNORMAL) Urinalysis, Routine (09/23/2013 11:55 AM CDT) [facility] Method Time Signature Source Clean Void POWERCHART Urine HXUr Color DK YELLOW POWERCHART Glucose Negative Negative POWERCHART HXBILIRUBIN Negative Negative POWERCHART Ketones, QL(U) Negative Negative POWERCHART Specific >=1.030 >=1.030 POWERCHART [place], POCT, U pH, POCT, Urine 6.0 8.5 POWERCHART Protein, Ur, Dip TRACE MGDL POWERCHART Urobilinogen 0.2 1.0 POWERCHART HXNITRITE Negative Negative POWERCHART HXBLOOD Large (A) Negative POWERCHART Leukocyte Negative Negative POWERCHART Esterase Specimen (Source) Anatomical Collection Method Collection Time Re ceived Time Location / / Volume Laterality Urine 09/23/2013 11:55 AM CDT Ramesh Robert M.D. LAB URINE ORDERABLES Performing Organization Address City/[facility] Code Phon e Number POWERCHART Bacterial Culture, Aerobic, Urine (09/23/2013 11:55 AM CDT) [facility] Method Time Signature Bacterial POWERCHART Culture, Aerobic, Urine HXPre >100,000 POWERCHART cfu/mL Mixed dung (multiple species present) HXFinal >100,000 POWERCHART cfu/mL Mixed dung (multiple species present) HXFinal No further POWERCHART work-up. Specimen (Source) Anatomical Collection Method Collection Time Re ceived Time Location / / Volume Laterality Urine, Clean 09/23/2013 11:55 Catch AM CDT Comment: P Ramesh Robert M.D. LAB MICROBIOLOGY - GENERAL O RDERABLES Performing Organization Address City/[facility] Code Phon e Number POWERCHART Antibody Screen (09/23/2013 11:52 AM CDT) athologist Signature Antibody Negative POWERCHART Screen Comment: Test Performed by: [address] [address] Lab oratory Director: Xavi Do III, M.D. Specimen (Source) Anatomical Collection Method Collection Time Re ceived Time Location / / Volume Laterality 09/23/2013 11:52 AM CDT Ramesh Robert M.D. LAB BLOOD BANK TEST ORDERABL ES Performing Organization Address City/[facility] Code Phon e Number POWERCHART Grouping and Rh-[place] FLIP, see #[id number] (09/23/2013 11:52 AM CDT) Patholo gist Method Time Signature HX Grouping B Positive POWERCHART and Rh Specimen (Source) Anatomical Collection Method Collection Time Re ceived Time Location / / Volume Laterality 09/23/2013 11:52 AM CDT Ramesh Robert M.D. LAB BLOOD BANK TEST ORDERABL ES Performing Organization Address City/[facility] Phon e Number POWERCHART Automated Differential (09/23/2013 11:52 AM CDT) P athologist Signature Neutro % 52.8 44.0 - POWERCHART 69.0 Lymphocytes % 36.9 18.0 - POWERCHART 44.1 HX Bland % 8.7 5.0 - 11.7 POWERCHART HX Eos % 0.9 0.8 - 3.1 POWERCHART HX Baso % 0.7 0.2 - 1.4 POWERCHART Absolute 3.70 1.70 - POWERCHART Neutrophils 7.00 109L Lymphocytes 2.59 0.90 - POWERCHART 2.90 X109L Monocytes 0.61 0.30 - POWERCHART 0.90 X109L Eosinophils 0.06 0.05 - POWERCHART 0.50 X109L Absolute 0.05 0.00 - POWERCHART Basophil 0.30 X109L Specimen Anatomical Collection Method Collection Time Receive d Time (Source) Location / / Volume Laterality Blood 09/23/2013 11:52 09/23/2013 AM CDT 11:52 AM CDT Ramesh Robert M.D. LAB BLOOD ADD-ON Performing Organization Address City/[facility] Phon e Number POWERCHART CBC with Differential (09/23/2013 11:52 AM CDT) P athologist Signature Leukocytes 7.0 3.4 - 10.5 POWERCHART X109L Erythrocytes 4.76 3.90 - 5.03 POWERCHART J5033D Hemoglobin 13.3 12.0 - 15.5 POWERCHART GDL Hematocrit 41.3 34.9 - 44.5 POWERCHART MCV 86.8 82.0 - 98.0 POWERCHART FL HX RDW 12.8 11.9 - 15.5 POWERCHART Platelet Count 334 150 - 450 POWERCHART X109L Specimen (Source) Anatomical Collection Method Collection Time Re ceived Time Location / / Volume Laterality Blood 09/23/2013 11:52 AM CDT Ramesh Robert M.D. LAB BLOOD ADD-ON Performing Organization Address City/State/ZIP Code Phon e Number POWERCHART (ABNORMAL) bHCG (Beta-Human Chorionic Gonadotropin), Quantitative (09/23/2013 11:52 AM CDT) P athologist Signature Beta-HCG, 62.8 (H) <=25.0 POWERCHART Quantitative, MIUML S Specimen (Source) Anatomical Collection Method Collection Time Re ceived Time Location / / Volume Laterality Blood 09/23/2013 11:52 AM CDT Ramesh Robert M.D. LAB BLOOD ADD-ON Performing Organization Address City/[facility] Phon e Number POWERCHART Profile II without CBC/Serum (09/23/2013 11:52 AM CDT) P athologist Signature HBs Antigen, S Negative Negative POWERCHART Comment: Test Performed by: [facility] [place] [address] Kindergarten Tutor: Xavi quevedo III, M.D. HX Rubella IgG-[place] Positive POWERCHART Comment: Results suggest response to immunization or prior exposure to the virus. -- REFERENCE VALUE -- Vaccinated: Positive (>=1.0 AI) Unvaccinated: Negative (<=0.7 AI) Rubella IgG Antibody Index 1.4 POW ERCHART Comment: Test Performed by: [facility] [place] [address] Kindergarten Tutor: Xavi quevedo III, M.D. Syphilis IgG Ab, S Negative Negative POWERCHART Comment: No serologic evidence of exposure to syp hilis. Test Performed by: [facility] [place] [address] Kindergarten Tutor: Xavi quevedo III, M.D. Specimen (Source) Anatomical Collection Method Collection Time Re ceived Time Location / / Volume Laterality Blood 09/23/2013 11:52 AM CDT Ramesh Robert M.D. LAB BLOOD NON ADD-ON Performing Organization Address City/[facility] Phon e Number POWERCHART HXZZORDERS (09/23/2013 11:52 AM CDT) P athologist Signature HIV-1/-2 Negative Negative POWERCHART Antibody Comment: Negative result does not rule out HIV in fection. If acute HIV-1 infection is suspected in a high-r isk patient, submit plasma specimen for HIV-1 RNA quantifica tion test. If this test is ordered as a follow-up t est to a reactive rapid HIV antibody test result, suppleme ntal testing by Western blot is recommended, even when t his test result is negative. Testing is performed using the [employer] Anti-HIV 1+2 chemiluminescence immunoassay. Test Performed by: [place] [address] Kindergarten Tutor: Xavi quevedo III, M.D. Specimen (Source) Anatomical Collection Method Collection Time Re ceived Time Location / / Volume Laterality Blood 09/23/2013 11:52 AM CDT Ramesh Robert M.D. LAB HISTORICAL ORDERS Performing Organization Address City/State/ZIP Code Phon e Number POWERCHART documented in this encounter Visit Diagnoses Not on filedocumented in this encounter
--- OUTSIDE RECORDS SUMMARY | 2022-02-22 12:40 | XMS_ITS | Encounter Summary ---
:1985 Author Organization [facility] Address [address] [place] [address] Care Team Providers Name Role Phone Unavailable Primary Care Provider Unavailable Encounter Details Date Type Department Care Team Description 12/31/2012 Hospital Encounter HX NO MAPPING Sari Shultz M.D. 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
--- OUTSIDE RECORDS SUMMARY | 2022-02-22 12:40 | XMS_ITS | Encounter Summary ---
:1985 Author Organization [facility] Address [address] [place] [address] Care Team Providers Name Role Phone Unavailable Primary Care Provider Unavailable Encounter Details Date Type Department Care Team Description 09/03/2013 Hospital Encounter HX [facility]ILY[facility] Abbie Boone M.D. 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 - 05/01/2014 10:44 AM CDT Request for Carbamazepine PA We received a request to do a Prior Authorization on the patient's Carbamazepine, however, Dr. Bonoe was very specific when he saw her that she was to establish care with a neurologist to have that medication filled and monitored. We did put in a referral for her to see neurology. I left a message on patient's phone to check to see if she followed through with the consult to neurology. Waiting for a call back. Electronically Signed By: PEARL GALLEGOS LPN On: 05/21/2014 09:20 AM Source: [facility] [place] Document Id: [id number] BODY REPAIRER Conversion, Historical Provider Ser - 09/03/2013 1:55 PM CST Nurse Only Documentation Nurse Only Documentation Entered On: 09/03/2013 13:56 AUTO BODY REPAIRER Performed On: 09/03/2013 13:55 AUTO BODY REPAIRER by CURT SONG Nurse Only Documentation Nurse Only Visit Documentation : Pt stopped in for results. Patient was informed of positive and was sent to schedule with Maddie Merritt and CURT Kamara - 09/03/2013 13:55 AUTO BODY REPAIRER Source: [facility] POWERCHART Document Id: [id number] AUTO BODY REPAIRER!3 Conversion, Historical Provider Ser - 09/03/2013 12:22 PM CST New obstetric patient. 2 Para 1 vaginal . Last menstrual cycle 07/25/2013. Expected dateof delivery 05/01/2014. Pt requesting chewable vitamins to [facility]. New obstetrical jozef mailed and appts scheduled. Electronically Signed By: NIKI HADLEY On: 09/03/2013 12:24 PM Source: [facility] [place] Document Id: [id number] documented in this encounter Miscellaneous Notes Telephone Encounter - Conversion, Historical Provider Ser - 07/30/2014 12:53 PM CST *Phone Message Document Contains Addenda Addendum by SHAHZAD RODRÍGUEZ on 30 July 2014 13:23:02 AUTO BODY REPAIRER Patient states Pharmacy sent fax about 15-30 minutes ago. shared with patient that refill process takes 3 days and to check with pharmacy From: JAZMINE FRANCOIS ([address] Equal Opportunity Representative) To: LORI COLINproject management professionalM[facility]; Sent: 07/30/2014 12:53:02 AUTO BODY REPAIRER Subject: *Phone Message Caller is: ( x ) Patient ( ) Mother ( ) Father ( ) Spouse ( ) Daughter ( ) Son ( ) Pharmacy ( ) Other: Physician: [facility] Patient MRN #: Reason for Call: Message: s patient calling to speak to nurse b patient calling for medication refill mike won't fax request a r call her back at [phone] Advice/Action: Source used: ( ) Verbalizes understanding [...] back cell phone number ( ) Source: [facility] Document Id: [id number] Miscellaneous - Pearl Gallegos L.PFlexN. - 12/16/2013 2:21 PM CDT Med Management From: PEARL GALLEGOS LPN (LORI Boone Nurse) To: ANUPAM BOONE MD; Sent: 12/16/2013 14:21:19 CDT Subject: Med Management On hold pending signature Order:carBAMazepine (carbamazepine 200 mg oral tablet) 2 tab(s) PO 2xDay with food Qty: 360 tab(s) Refills: 0 Substitutions Allowed Route To Pharmacy - [facility] Caller is: ( ) Patient ( ) Mother ( ) Father ( ) Spouse ( ) Daughter ( ) Son ( x ) Pharmacy ( ) Other: Provider: [facility] Name of Medications Needing Refill: Carbamazepin 200mg Last Refill Date: 11/08/13 Additional Information: Last / Future Appointment: Last seen 07/2013, no future appt scheduled Disposition: ( ) Send to Pharmacy ( ) Call to Pharmacy ( ) Patient will pepper picker Script ( ) [facility] Document Id: [id number] Electronically signed by Conversion, [facility] Pharmacy Technician Program Director [id number] at 12/12/2016 11:10 PM CDT Miscellaneous - Conversion, Historical Provider Ser - 09/03/2013 12:13 PM AUTO BODY REPAIRER General Message- Positive From: CURT SONG (LORI Heck Nurse) Sent: 09/03/2013 12:13:24 AUTO BODY REPAIRER Subject: General Message- Positive Pt was informed of positive results. Pt LMP 07/25/13 with an HAJA of 05/01/14. Pt was walkedto set up appt with Maddie Merritt and Dr. Robert Source: [employer] Document Id: [id number] documented in this encounter Plan of Treatment Not on filedocumented as of this encounter Visit Diagnoses Not on filedocumented in this encounter
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
--- OUTSIDE RECORDS SUMMARY | 2022-02-22 12:40 | XMS_ITS | Encounter Summary ---
:1985 Author Organization [facility] Address [address] [place] [address] Care Team Providers Name Role Phone Unavailable Primary Care Provider Unavailable Encounter Details Date Type Department Care Team Description 10/18/2012 Hospital Encounter HX [facility] Osman M.D. 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 - 10/18/2012 1:31 PM CDT [id number] CHIEF COMPLAINT / REASON FOR VISIT followup. HISTORY OF PRESENT ILLNESS The patient is a 27-year-old high-risk with a seizure disorder. She is 1, para 0 at 37-4/7 weeks' gestation today. She has had 2 witnessed seizures in the last 2 weeks, 1 due to her discontinuation of her carbamazepine. She subsequently was restarted on it and had documented therapeutic levels and unfortunately this past Monday did have a witnessed seizure again. She has been stable since that time now 5 days later. Denies any further seizures, feels well and is stable on her carbamazepine level with adequate reserves of it at home. She has noted some contractions as recently aslast night, which became painful and regular. The baby has been active. No bleeding. No leaking of fluid. We did review her group B strep culture today taken last time being negative. Exam is performed. Size is consistent with dates. Please see associated ultrasound report from todaywith noted normal amniotic fluid and movement. Heart tones are in the 140s. Cervix is 2, 80 and 0. She has minimal peripheral edema today. BLOOD PRESSURE: 120/68. WEIGHT: 65.4 kg. IMPRESSION / REPORT / PLAN She is 37 weeks 4 days, with seizure disorder under suboptimal control due to compliance concerns. She will be 38-1/2 weeks next week. We will bring her in for induction of labor at that point given her favorable cervix and clinically her pelvis seems adequate today as well. This has been scheduled and we will see her in Labor and Delivery next week Monday. Max Saeed M.D./marisela cc: Labor and Delivery Electronically Signed By: MAX SAEED MD On: 10/23/2012 07:41 AM Source: [facility] MHSDOLBEYNONRADSYS Document Id: [id number] documented in this encounter Miscellaneous Notes Miscellaneous - Tasha Briggs R.N. - 12/17/2012 9:53 AM CDT Carbamazepin Document Contains Addenda Addendum by RICHELLE SEAY on 17 December 2012 12:06:56 CDT unable to reach patient by phone it is disconected. Addendum by JENA DYER MD on 17 December 2012 11:57:31 CDT From: JENA DYER MD To: LORI Saeed Nurse; Sent: 12/17/2012 11:57:31 CDT Subject: RE: Carbamazepin After reviewing the medical record, I think we need a carbamazepine level prior to knowing what doseto adjust her refill prescription. Because changes are likely to interfere with her metabolism, after delivery we may need to decrease the dose to reach appropriate levels. Can she come in for a blood test (carbamazepine level)? Addendum by NIKI HADLEY on 17 December 2012 11:04:[address] Dyer for review. Addendum by NIKI HADLEY on 17 December 2012 11:03:50 CDT From: NIKI AHDLEY (LORI Saeed Nurse) To: JENA DYER MD; Sent: 12/17/2012 11:03:50 CDT Subject: FW: Carbamazepin Addendum by BHARTI SMITH on 17 December 2012 10:13:44 CDT From: BHARTI SMITH (OW Nurse Line) To: OW Srinivas Nurse; Sent: 12/17/2012 10:13:44 CDT Subject: FW: Carbamazepin From: TASHA BRIGGS (OW Nurse Line) To: OW Nurse Line; Sent: 12/17/2012 09:53:13 CDT Subject: Carbamazepin On hold pending signature Order:carbamazepine (carbamazepine 200 mg oral tablet) 2 tab(s) PO 2xDay Appt 12/28/12 Qty: 360 tab(s) Refills: 0 Substitutions Allowed Route To Pharmacy - [facility] Caller is: ( ) Patient ( ) Mother ( ) Father ( ) Spouse ( ) Daughter ( ) Son ( [facility] ) Pharmacy ( ) Other: Physician: Srinivas Patient MRN #: Reason for Call: Message: S Refill Carbamazepin B Patient was seen by you for OB visits and had seizures toward end of due to noncompliance or running out of meds?...Last visit 10/18/12....Next visit 12/28/12....Last level 08/30/12...Did haveone in ER do not have records for this.....Last refill 11/23/12..... Advice/Action: Source used: ( ) Verbalizes understanding [...] back cell phone number ( ) Source: [facility] POWERCHART Document Id: [id number] Electronically signed by Kemal, [facility] Tight Barrel Inspector [id number] at 12/14/2016 7:15 AM CDT Miscellaneous - Bryan Oneal - 10/25/2012 2:50 PM CDT Reminder Msg-reminder call Document Contains Addenda Addendum by BRYAN ONEAL on 22 Nov 2012 11:53:38 CDT Called patient and got a recording stating patient's phone number was not in service From: BRYAN ONEAL To: BRYAN ONEAL; Sent: 10/25/2012 14:50:07 CDT Show up: 11/21/2012 08:00:00 CDT Subject: Reminder Msg-reminder call Due Date/Time: 11/21/2012 08:00:00 CDT Please Remember to: Call patient to schedule a 6 week post check on 12-05-[address] Saeed PATIENT: ( ) Call Patient ( ) Ask Patient to ( ) ( ) Call Relative ( ) Schedule Patient ( ) ( ) Call for Jitterbug Operator ( ) Follow up on Results ( ) Other: PROVIDER: ( ) Call Physician ( ) Call Pharmacist ( ) Call Lab ( ) Other: Special Instructions: Comments: Source: [facility] POWERCHART Document Id: [id number] Electronically signed by Kemal, [facility] Tight Barrel Inspector [id number] at 12/14/2016 7:15 AM CDT Miscellaneous - Max Saeed M.D. - 10/18/2012 4:11 PM CDT Ambulatory Depart Summary [address] [address] Visit Information Name: [address] [facility] Number: [phone] Visit Date: 10/18/2012 16:11:22 Attending Provider: MAX SAEED MD Primary Care Provider: PCP, ELSEWHERE PREET [...] your provider for clarification. Additional Information: Source: [facility] POWERCHART Document Id: [id number] Miscellaneous - Max Saeed M.D. - 10/18/2012 4:11 PM CDT Ambulatory Patient Summary [facility] [address] [place] [address] Visit Information Name: [facility] Number: [phone] Current Date: 10/18/2012 16:11:23 Physicians Attending Provider: MAX SAEED MD Primary Care Provider: PCP, ELSEWHERE Your [...] Upcoming Appointments Date Time Location Reason Provider 10/25/2012 09:30 [facility] GLUE WHEEL OPERATOR growth check per srinivas 10/25/2012 10:00 [facility] GLUE WHEEL OPERATOR growth check per Max Chiu MD Your Goals/Additional instructions: Source: [facility] POWERCHART Document Id: [id number] Miscellaneous - Iris Rey, L.P.N. - 10/18/2012 1:33 PM CDT Adult Student Teaching Coordinator Intake/History Adult Student Teaching Coordinator Intake/History Entered On: 10/18/2012 13:35 CDT Performed On: 10/18/2012 13:33 CDT by IRIS REY Intake Chief Complaint : ob check Systolic Blood Pressure : 120mmHg Diastolic Blood Pressure : 68mmHg NIBP Mean : 85mmHg BP Location : Left upper extremity Blood Pressure Cuff Size : Regular Actual Weight : 65.4kg(Converted to: 144lb 3oz) Dosing Weight Clinic : 65.40kg IRIS REY - 10/18/2012 13:33 CDT General Info Languages : Albanian IRIS REY - 10/18/2012 13:33 CDT Subjective Pain Symptoms : No IRIS REY - 10/18/2012 13:33 CDT Dependent Habits Tobacco Use/Currently Using : Yes Exposure to Tobacco Smoke : Patient smokes Smoking Status : Current every day smoker IRIS REY - 10/18/2012 13:33 CDT Tobacco Use Grid Type : Cigarettes Cigarette Use Packs/Day : 0.2 IRIS REY - 10/18/2012 13:33 CDT Caffeine Use Grid Caffeine Use : Current Type : Coffee, Soft drinks Frequency : Daily Amount : 5 POTS IRIS REY - 10/18/2012 13:33 CDT Recreational Drug Use Grid Drug Use : None IRIS REY - 10/18/2012 13:33 CDT Allergy Allergies (Active) Vicodin Estimated Onset Date: Unspecified ; Reactions: Hives, Breathing ; Created By: GARRETT JARRELL; Reaction Status: Active ; Category: Drug ; Substance: Vicodin ; Type: Allergy ; Severity: Severe ; Updated By: GARRETT JARRELL; Reviewed Date: 10/18/2012 13:33 CDT Source: [facility] POWERCHART Document Id: [id number] documented in this encounter Plan of Treatment Not on filedocumented as of this encounter Visit Diagnoses Not on filedocumented in this encounter
--- OUTSIDE RECORDS SUMMARY | 2022-02-22 12:40 | XMS_ITS | Encounter Summary ---
:1985 Author Organization [facility] Address [address] [place] [address] Care Team Providers Name Role Phone Unavailable Primary Care Provider Unavailable Encounter Details Date Type Department Care Team Description 10/11/2013 Hospital Encounter HX [facility] Ramesh Robert M.D. 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 documented in this encounter Results bHCG (Beta-Human Chorionic Gonadotropin), Quantitative (10/11/2013 10:59 AM CDT) P athologist Signature Beta-HCG, 12.2 <=25.0 POWERCHART Quantitative, S MIUML Specimen (Source) Anatomical Collection Method Collection Time Re ceived Time Location / / Volume Laterality Blood 10/11/2013 10:59 AM CDT Ramesh Robert M.D. LAB BLOOD ADD-ON Performing Organization Address City/State/ZIP Code Phon e Number POWERCHART documented in this encounter Visit Diagnoses Not on filedocumented in this encounter
--- OUTSIDE RECORDS SUMMARY | 2022-02-22 12:40 | XMS_ITS | Encounter Summary ---
:1985 Author Organization [facility] Address [address] [place] [address] Care Team Providers Name Role Phone Unavailable Primary Care Provider Unavailable Encounter Details Date Type Department Care Team Description 10/04/2012 Hospital Encounter HX NO MAPPING Sari Shultz M.D. 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
--- OUTSIDE RECORDS SUMMARY | 2022-02-22 12:40 | XMS_ITS | Encounter Summary ---
:1985 Author Organization [facility] Address [address] [place] [address] Care Team Providers Name Role Phone Unavailable Primary Care Provider Unavailable Encounter Details Date Type Department Care Team Description 09/04/2013 Hospital Encounter HX NO MAPPING Sari Shultz M.D. 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
--- OUTSIDE RECORDS SUMMARY | 2022-02-22 12:40 | XMS_ITS | Encounter Summary ---
:1985 Author Organization [facility] Address [address] [place] [address] Care Team Providers Name Role Phone Unavailable Primary Care Provider Unavailable Encounter Details Date Type Department Care Team Description 10/27/2012 Hospital Encounter HX NO MAPPING Jan Montgomery M.D. 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
--- OUTSIDE RECORDS SUMMARY | 2022-02-22 12:40 | XMS_ITS | Encounter Summary ---
:1985 Author Organization [facility] Address [address] [place] [address] Care Team Providers Name Role Phone Unavailable Primary Care Provider Unavailable Encounter Details Date Type Department Care Team Description 12/31/2012 Hospital Encounter HX NO MAPPING Sari Shultz M.D. 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 documented in this encounter Results CT Abdomen Pelvis with IV Contrast (12/31/2012 8:05 PM CDT) Anatomical Region Laterality Modality Abdomen, Pelvis N/A Computed Tomography Specimen (Source) Anatomical Collection Method Collection Time Re ceived Time Location / / Volume Laterality 12/31/2012 8:05 PM CDT Addenda Addendum by Provider, Pippa Yeung 12/31/2012 8:05 PM CDT RAD^^^OW CT AbdomenPelvis w contrast 12/31/2012 20:05:16 Impressions 01/01/2013 6:20 AM CDT 1. No appreciable findings to suggest ap pendicitis. 2. Steatosis. 3. Nonobstructive bilateral calyceal tip stones. 4. Several calcified pelvic phleboliths. 5. Nonspecific trace free fluid within t he dependent pelvis. If clinically indicated transabdominal and endovaginal pelvic ultrasound may be helpful for further evaluation. Narrative 01/01/2013 6:20 AM CDT EXAM: ??CT Abdomen/Pelvis w/ contrast AGE: ??27 years old. GENDER: ??Female. INDICATION: ??abdominal pain (RLQ pain) COMPARISON: ??None. FINDINGS: ??[employer] report generated by virtual radiology. PROTOCOL: 82 mL of Omnipaque-300 contras t was injected intravenously. 40 mm saline bolus. LUNG BASES: Mild atelectasis both lung b ases (more pronounced on the right). ABDOMEN AND PELVIS: Homogeneous, decreas ed attenuation throughout the liver compatible with probable steatosis . Normal CT appearance of the spleen, panc reas, bilateral adrenal glands. Bilateral nonobstructive lower pole jeanette ceal tip stones. No appreciable findings to suggest appen dicitis. No drainable fluid collections or absces s. Trace free fluid within the dependent pelvis. If there is concern for possible gynecol ogical abnormality dedicated transabdominal and endovaginal pelvic ul trasound may be helpful. Procedure Note Osbaldo [place] M.D. / Provider, Rai gibson M.D. - 12/02/2016 EXAM: CT Abdomen/Pelvis w/ contrast AGE: [age] years old. GENDER: Female. INDICATION: abdominal pain (RLQ pain) COMPARISON: None. FINDINGS: Prinivil report generated by [facility] radiology. PROTOCOL: 82 mL of Omnipaque-300 contras t was injected intravenously. 40 mm saline bolus. LUNG BASES: Mild atelectasis both lung b ases (more pronounced on the right). ABDOMEN AND PELVIS: Homogeneous, decreas ed attenuation throughout the liver compatible with probable steatosis . Normal CT appearance of the spleen, panc reas, bilateral adrenal glands. Bilateral nonobstructive lower pole jeanette ceal tip stones. No appreciable findings to suggest appen dicitis. No drainable fluid collections or absces s. Trace free fluid within the dependent pelvis. If there is concern for possible gynecol ogical abnormality dedicated transabdominal and endovaginal pelvic ul trasound may be helpful. IMPRESSION: 1. No appreciable findings to suggest ap pendicitis. 2. Steatosis. 3. Nonobstructive bilateral calyceal tip stones. 4. Several calcified pelvic phleboliths. 5. Nonspecific trace free fluid within t he dependent pelvis. If clinically indicated transabdominal and endovaginal pelvic ultrasound may be helpful for further evaluation. Historical Provider IMG CT PROCEDURES documented in this encounter Visit Diagnoses Not on filedocumented in this encounter
--- OUTSIDE RECORDS SUMMARY | 2022-02-22 12:40 | XMS_ITS | Encounter Summary ---
:1985 Author Organization [facility] Address [address] [place] [address] Care Team Providers Name Role Phone Unavailable Primary Care Provider Unavailable Encounter Details Date Type Department Care Team Description 12/04/2013 Hospital Encounter HX NO MAPPING Sari Shultz M.D. 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
--- OUTSIDE RECORDS SUMMARY | 2022-02-22 12:40 | XMS_ITS | Encounter Summary ---
:1985 Author Organization [facility] Address [address] [place] [address] Care Team Providers Name Role Phone Unavailable Primary Care Provider Unavailable Encounter Details Date Type Department Care Team Description 06/19/2013 Hospital Encounter [facility]X [facility] Roger Caraballo M.D. [address] [place] [address] [phone] (Wo rk) Social History Tobacco Use Types [...] at Date Recorded Female 06/09/2021 2:09 PM STUCCO MASON documented as of this encounter Last Filed Vital Signs Vital Sign Reading Time Taken Comments Blood Pressure 110/64 06/19/2013 12:57 PM STUCCO MASON Pulse 80 06/19/2013 12:57 PM STUCCO MASON Temperature - - Respiratory Rate 16 06/19/2013 12:57 PM STUCCO MASON Oxygen Saturation - - Inhaled Oxygen Concentration - - Weight 58.7 kg (129 lb 6.6 oz) 06/19/2013 12:57 PM STUCCO MASON Height - - Body Mass Index 21.64 04/03/2012 4:12 PM CDT documented in this encounter Progress Notes Evelio Caraballo M.D. - 06/19/2013 12:50 PM CST [id number] CHIEF COMPLAINT/REASON FOR VISIT Check laceration. HISTORY OF PRESENT ILLNESS This 28-year-old woman with a history of seizure disorder, had not been taking all of her carbamazepine. She had a seizure 06/10 and lacerated her left forearm on a picture of herself and her child. This was repaired in the emergency room and she was asked to come back in today for evaluation. She does have significant inflammation and tenderness and has indeed removed 2 of the more distal lateral sutures herself because of the discomfort. She has had no fever and no dysmobility. She has had no further seizures. Medications and allergies per EMR. SYSTEMS REVIEW CONSTITUTIONAL: Stable health without fever. EYES: No discharge or erythema. ENT: Negative. RESPIRATORY: No cough, wheezing, or dyspnea. NEUROLOGIC: History of seizure disorder with recent seizure, none since. SKIN: Laceration with surrounding erythema, tenderness, and stitch abscesses along the approximate 5 cm wound on the left forearm. VITAL SIGNS Per EMR. PHYSICAL EXAMINATION GENERAL: Cooperative alert, pleasant woman, mild distress. HEENT/NECK: Head and neck are normal in contour. LYMPHATICS: No preauricular, supraclavicular, axillary or epitrochlear adenopathy. SKIN: Wound which has been sutured, left anterior forearm, with 2 of those removed by herself, as reported above. These are toward the distal lateral aspect. She does have surrounding erythema and tenderness, but no lymphangitis. IMPRESSION/REPORT/PLAN Laceration with wound infection now. Recommend warm packs 10 minutes 3 times a day. She can apply bacitracin and sterile dressing. Keep this elevated as much as possible. Cephalexin 500 mg 3 times a day. She does not have a primary physician here and is on her last prescription refill of carbamazepine, so she does need to follow up and establish care with primary physician. I encouraged her to do that, as well as having her wound checked on Monday. Evelio Caraballo M.D./cathy Electronically Signed By: EVELIO CARABALLO MD On: 06/20/2013 03:26 PM Source: [facility] MHSDOLBEYNONRADSYS Document Id: [id number] CO MASON documented in this encounter Miscellaneous Notes Miscellaneous - Evelio Caraballo M.D. - 06/19/2013 1:16 PM CST Ambulatory Patient Summary [facility] [address] [place] [address] Visit Information Name: PREET TURK [facility] Number: [phone] Current Date: 06/19/2013 13:16:32 Physicians Attending Provider: EVELIO CARABALLO MD Primary Care Provider: PCP, ELSEWHERE ARTUR TURKANDRA has been given the following [...] Take Indications/Special Instructions/Comments/Notes for Patient Medication Changes/Routing carbamazepine (carbamazepine 200 mg oral tablet) 2 Tablet(s), Oral, two times a day cephalexin (cephalexin 500 mg oral capsule) 1 cap, Oral, three times a day x 10 day(s) [facility] [address] [place] [address] *multivitamin, ( 19 oral tablet, chewable) 1 Tablet(s), Oral, once a day * You have let us know that you are not taking this medication as listed. Please talk with your primary care provider or the health care provider who prescribed the medication as soon as possible. Stop Taking the Following Medications: Medication list as of 06-19-13 13:16 Attention: If you have any medications at [...] appointment detail needed. Your Goals/Additional instructions: Source: [facility] POWERCHART Document Id: [id number] CO [place]ON Miscellaneous - Evelio Caraballo M.D. - 06/19/2013 1:16 PM CST Ambulatory Depart Summary [address] [address] Visit Information Name: PREET TURK [facility] Number: [phone] Visit Date: 06/19/2013 13:16:30 Attending Provider: EVELIO CARABALLO MD Primary Care Provider: PCP, PREET MONROY [...] Take Indications/Special Instructions/Comments/Notes for Patient Medication Changes/Routing carbamazepine (carbamazepine 200 mg oral tablet) 2 Tablet(s), Oral, two times a day cephalexin (cephalexin 500 mg oral capsule) 1 cap, Oral, three times a day x 10 day(s) [facility] [address] [place] [id number] *multivitamin, ( 19 oral tablet, chewable) 1 Tablet(s), Oral, once a day * You have let us know that you are not taking this medication as listed. Please talk with your primary care provider or the health care provider who prescribed the medication as soon as possible. Stop Taking the Following Medications: Medication list as of 06-19-13 13:16 Attention: If you have any medications at home that are not on this list, DO NOT take them until youcontact your provider for clarification. Give a copy of your medication list to your primary care provider. Update your medication list any time medications or doses are changed and carry your medication list at all times in case of emergency. Additional Information: Source: [facility] POWERCHART Document Id: [id number] CO [place] Miscellaneous - Conversion, Historical Provider Ser - 06/19/2013 12:57 PM STUCCO MASON Adult Turf Sales Person Intake/History Adult Turf Sales Person Intake/History Entered On: 06/19/2013 13:01 STUCCO MASON Performed On: 06/19/2013 12:57 STUCCO MASON by GREG ROSALES Intake Chief Complaint : Suture removal. They were place in the ER on 06/10. Cut is still very painful and oozing Temperature Oral : 37.1 DegC(Converted to: 98.8 DegF) Peripheral Pulse Rate : 80 /min Respiratory Rate : 16 /min Systolic Blood Pressure : 110 mmHg Diastolic Blood Pressure : 64 mmHg NIBP Mean : 79 mmHg BP Location : Right upper extremity Blood Pressure Cuff Size : Regular Actual Weight : 58.7 kg(Converted to: 129 lb 7 oz) Dosing Weight Clinic : 58.7 kg GREG ROSALES - 06/19/2013 12:57 STUCCO MASON General Info Information Given By : Patient Preferred Communication Mode : Verbal Languages : Tongan GREG ROSALES - 06/19/2013 12:57 STUCCO MASON Subjective Pain Symptoms : No GREG ROSALES - 06/19/2013 12:57 STUCCO MASON Dependent Habits Tobacco Use/Currently Using : Yes Exposure to Tobacco Smoke : Patient smokes Smoking Status : Current every day smoker GREG ROSALES 06/19/2013 12:57 STUCCO MASON Tobacco Use Grid Type : Cigarettes Cigarette Use Packs/Day : 0.2 GREG ROSALES 06/19/2013 12:57 STUCCO MASON Caffeine Use Grid Caffeine Use : Current Type : Coffee, Soft drinks Frequency : Daily Amount : 5 POTS GREG ROSALES - 06/19/2013 12:57 STUCCO MASON Recreational Drug Use Grid Drug Use : None GREG ROSALES - 06/19/2013 12:57 STUCCO MASON Source: [facility] [employer] Document Id: [id number] STUCCO MASON!36 documented in this encounter Plan of Treatment Not on filedocumented as of this encounter Visit Diagnoses Not on filedocumented in this encounter
--- OUTSIDE RECORDS SUMMARY | 2022-02-22 12:40 | XMS_ITS | Encounter Summary ---
:1985 Author Organization [facility] Address [address] [place] [address] Care Team Providers Name Role Phone Unavailable Primary Care Provider Unavailable Encounter Details Date Type Department Care Team Description 09/23/2013 [facility] Ramesh Robert M.D. 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
--- OUTSIDE RECORDS SUMMARY | 2022-02-22 12:40 | XMS_ITS | Encounter Summary ---
:1985 Author Organization [facility] Address [address] [place] [address] Care Team Providers Name Role Phone Unavailable Primary Care Provider Unavailable Encounter Details Date Type Department Care Team Description 10/04/2013 Hospital Encounter HX [facility] Max Robert M.D. 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 - 10/04/2013 12:54 PM CDT Results Notification Document Contains Addenda Addendum by YOSI REY on 04 October 2013 15:59:46 CDT results given to pt and sched her to recheck in 1 wk @ 11 From: MAX ROBERT MD To: LORI Robert Nurse; Sent: 10/04/2013 12:54:42 CDT Show up: 10/04/2013 12:55:00 CDT Subject: Results Notification Actions: Notify patient of results, Note to Nurse repeat again in 1 week Results: Date Result Name Value Ref Range 10/04/2013 09:45 Beta hCG Qnt 17.5 mIU/mL ( - <=25.0) Source: [facility] POWERCHART Document Id: [id number] Electronically signed by Conversion, [facility] Geophysical Support Specialist [id number] at 12/13/2016 10:30 AM CDT documented in this encounter Plan of Treatment Not on filedocumented as of this encounter Procedures Procedure Name Priority Date/Time Associated Diagnosis Comme nts BHCG (BETA-HUMAN Routine 10/04/2013 9:45 AM Resul ts for this CHORIONIC CDT procedure are i n GONADOTROPIN), the results GABRIEL, S section. documented in this encounter Results bHCG (Beta-Human Chorionic Gonadotropin), Quantitative (10/04/2013 9:45 AM CDT) P athologist Signature Beta-HCG, 17.5 <=25.0 POWERCHART Quantitative, S MIUML Specimen (Source) Anatomical Collection Method Collection Time Re ceived Time Location / / Volume Laterality Blood 10/04/2013 9:45 AM CDT Max Robert M.D. LAB BLOOD ADD-ON Performing Organization Address City/State/ZIP Code Phon e Number POWERCHART documented in this encounter Visit Diagnoses Not on filedocumented in this encounter
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
--- OUTSIDE RECORDS SUMMARY | 2022-02-22 12:40 | XMS_ITS | Encounter Summary ---
:1985 Author Organization [facility] Address [address] [place] [address] Care Team Providers Name Role Phone Unavailable Primary Care Provider Unavailable Encounter Details Date Type Department Care Team Description 12/04/2013 Hospital Encounter HX NO MAPPING Hernan Ko M.D. 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
--- OUTSIDE RECORDS SUMMARY | 2022-02-22 12:40 | XMS_ITS | Encounter Summary ---
:1985 Author Organization [facility] Address [address] [place] [address] Care Team Providers Name Role Phone Unavailable Primary Care Provider Unavailable Encounter Details Date Type Department Care Team Description 09/27/2013 Hospital Encounter [facility]X [facility] M.D. 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 - 09/27/2013 1:17 PM CDT [id number] CHIEF COMPLAINT/REASON FOR VISIT . HISTORY OF PRESENT ILLNESS The patient is a 28-year-old 2, para 1. She has uncertain dates. She had a beta HCG and a progesterone done last week which was low. It went from in the 90s to the 50s with a progesterone of less than 1. She denies any cramping, bleeding or pain today. She has had pain with intercourse. She did have some bleeding last week which brought her to the ED. PHYSICAL EXAMINATION Heart is regular. Lungs are clear bilaterally. No neck masses. Abdomen is soft and nontender. Pelvic exam deferred. Please see dictated ultrasound report. IMPRESSION / REPORT / PLAN Likely right tubal ectopic with a very low HCG and low progesterone. I am very suspicious that this is in fact an ectopic and it appears to be confirmed on ultrasound today. She does not appear to be bleeding or in pain. At this point, would recommend repeating HCG today and if it continues to drop most likely she will spontaneously miscarry. If she develops pain she is to present urgently for surgery. If the HCG plateaus then would recommend methotrexate therapy for her given her reasonable health, young age and stability and small size of the ectopic on ultrasound. Patient verbalized agreement and understanding. We will inform her of results when they are available. Max Robert M.D./eloisa Electronically Signed By: MAX ROBERT MD On: 10/01/2013 07:36 AM Source: [facility] MHSDOLBEYNONRADSYS Document Id: [id number] documented in this encounter Miscellaneous Notes Telephone Encounter - Khloe Argueta RRicha - 10/17/2013 1:41 PM CDT Mike calling re: allergy From: [facility] Sent: 10/17/2013 13:41:36 CDT Subject: Mike calling re: allergy Caller is: ( ) Patient ( ) Mother ( ) Father ( ) Spouse ( ) Daughter ( ) Son ( Burton Mckeon ) Pharmacy ( ) Other: Physician: [facility] Patient MRN #: Reason for Call: Message: S. Allergy question B. Pharmacy received Rx for Vicodin from dentist but questioning the allergy list on her. A. Wondering if the clinic has Vicodin listed too? R. Advised Vicodin is listed as an allergy. Pharmacist will contact the dentist. Advice/Action: Source used: ( ) Verbalizes understanding [...] number ( ) Source: [facility] POWERCHART Document Id: [id number] Miscellaneous - Max Robert M.D. - 09/27/2013 4:01 PM CDT Ambulatory Patient Summary [facility] [address] [place], [place] [id number] Visit Information Name: PREET TURK [facility] Number: [id number] Current Date: 09/27/2013 16:01:10 Physicians Attending Provider: MAX ROBERT MD Primary [...] the Following Medications: Medication list as of 09-27-13 16:01 Attention: If you have any medications at [...] appointment detail needed. Your Goals/Additional instructions: Source: [facility] POWERCHART Document Id: [id number] Miscellaneous - Max Robert M.D. - 09/27/2013 4:01 PM CDT Ambulatory Discharge Medication List [address] [id number] Visit Information Name: PREET TURK [facility] Number: [id number] Visit Date: 09/27/2013 16:01:08 Attending Provider: MAX ROBERT MD Primary Care [...] the Following Medications: Medication list as of 09-27-13 16:01 Attention: If you have any medications at home that are not on this list, DO NOT take them until youcontact your provider for clarification. Give a copy of your medication list to your primary care provider. Update your medication list any time medications or doses are changed and carry your medication list at all times in case of emergency. Additional Information: Source: [facility] POWERCHART Document Id: [id number] Miscellaneous - Iris Brown, L.P.N. 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 Systolic Blood Pressure : 110 mmHg Diastolic Blood Pressure : 66 mmHg NIBP Mean : 81 mmHg BP Location : Left upper extremity Blood Pressure Cuff Size : Regular IRIS BROWN - 09/27/2013 13:28 CDT General Info Languages : Indonesian IRIS BROWN - 09/27/2013 13:28 CDT Subjective Pain Symptoms : No KRISSY, IRIS D - 09/27/2013 13:28 CDT Dependent Habits Tobacco Use/Currently Using : Yes Exposure to Tobacco Smoke : Patient smokes Smoking Status : Current every day smoker KRISSY IRIS Monterroso - 09/27/2013 13:28 CDT Tobacco Use Grid Type : Cigarettes Cigarette Use Packs/Day : 0.5 KRISSYIRIS DOMINGUEZ - 09/27/2013 13:28 CDT Caffeine Use Grid Caffeine Use : Current Type : Coffee, Soft drinks Frequency : Daily Amount : 2 pots IRIS BROWN - 09/27/2013 13:28 CDT Recreational Drug Use Grid Drug Use : None IRIS BROWN - 09/27/2013 13:28 CDT [facility] Document Id: [id number]!29 documented in this encounter Plan of Treatment Not on filedocumented as of this encounter Procedures Procedure Name Priority Date/Time Associated Comments Diagnosis HEPATIC FUNCTION Routine 09/27/2013 2:19 PM Resul ts for this PANEL, S CDT procedure are i n the results section. BHCG (BETA-HUMAN Routine 09/27/2013 2:19 PM Resul ts for this CHORIONIC CDT procedure are i n GONADOTROPIN), GABRIEL, the res ults S section. CREATININE WITH Routine 09/27/2013 2:19 PM Result s for this EGFR, S/P CDT procedure are i n the results section. documented in this encounter Results Creatinine with eGFR (09/27/2013 2:19 PM CDT) P athologist Signature Creatinine, S 0.6 0.6 - 1.1 POWERCHART MGDL HXeGFR (MDRD) >60 >=60 POWERCHART [id number] eGFR >60 >=60 POWERCHART Black/ [id number] Cambodian Specimen (Source) Anatomical Collection Method Collection Time Re ceived Time Location / / Volume Laterality Blood 09/27/2013 2:19 PM CDT Max Robert M.D. LAB BLOOD ADD-ON Performing Organization Address City/State/ZIP Code Phon e Number POWERCHART Hepatic Function Panel (09/27/2013 2:19 PM CDT) Patholo gist Method Time Signature Alkaline 83 37 - 98 POWERCHART Phosphatase, S UNITL Alanine 15 7 - 45 POWERCHART Amniotransferase, LD UNITL Aspartate 17 8 - 43 POWERCHART Aminotransferase UNITL (AST), S Bilirubin, Direct, S <0.20 <=0.30 POWERCHAR T MGDL Bilirubin, Total, S 0.1 0.1 - 1.0 POWERCHART MGDL Total Protein, S 7.1 6.3 - 7.9 POWERCHART GDL Albumin, S 4.6 3.2 - 5.2 POWERCHART GDL HXGlobulin 2 POWERCHART Specimen (Source) Anatomical Collection Method Collection Time Re ceived Time Location / / Volume Laterality Blood 09/27/2013 2:19 PM CDT Max Robert M.D. LAB BLOOD ADD-ON Performing Organization Address City/State/ZIP Code Phon e Number POWERCHART (ABNORMAL) bHCG (Beta-Human Chorionic Gonadotropin), Quantitative (09/27/2013 2:19 PM CDT) P athologist Signature Beta-HCG, 31.9 (H) <=25.0 POWERCHART Quantitative, MIUML S Specimen (Source) Anatomical Collection Method Collection Time Re ceived Time Location / / Volume Laterality Blood 09/27/2013 2:19 PM CDT Max Robert M.D. LAB BLOOD ADD-ON Performing Organization Address City/State/ZIP Code Phon e Number POWERCHART documented in this encounter Visit Diagnoses Not on filedocumented in this encounter
--- OUTSIDE RECORDS SUMMARY | 2022-02-22 12:40 | XMS_ITS | Encounter Summary ---
:1985 Author Organization [facility] Address [address] [place] [address] Care Team Providers Name Role Phone Unavailable Primary Care Provider Unavailable Encounter Details Date Type Department Care Team Description 10/04/2012 Hospital Encounter HX NO MAPPING Evelio Infante M.D. 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
--- OUTSIDE RECORDS SUMMARY | 2022-02-22 12:40 | XMS_ITS | Encounter Summary ---
:1985 Author Organization [facility] Address [address] [place] [address] Care Team Providers Name Role Phone Unavailable Primary Care Provider Unavailable Encounter Details Date Type Department Care Team Description 10/12/2012 Hospital Encounter HX NO MAPPING Sari Shultz M.D. 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
--- OUTSIDE RECORDS SUMMARY | 2022-02-22 12:41 | XMS_ITS | Encounter Summary ---
:1985 Author Organization [facility] Address [address] [place] [address] Care Team Providers Name Role Phone Unavailable Primary Care Provider Unavailable Encounter Details Date Type Department Care Team Description 11/30/2011 Hospital Encounter [facility]X [facility] Juan Miguel Figueroa M.D. [address] [place], [place] [address] (Wo rk) Social History [...] or relatives? How often do you attend advent or 1 to 4 times per year 05/18 anabaptism services? 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 - 11/30/2011 12:00 AM CDT [id number] CHIEF COMPLAINT / REASON FOR VISIT 1) Mucosal lip burn 2) Dental pain HISTORY OF PRESENT ILLNESS Ms. Coulter is a 26-year-old white female who declares no local primary care provider. She was in the ER a month ago for dental pain, was placed on Keflex. She now is having increased pain in that tooth and she has an appointment on the . She also today left her fork in her food in the microwave. When she took it out it was hot and she failed to wait long enough until it was cool and she put it in her mouth. She burned the inner aspect of her upper and lower lip. CURRENT MEDICATIONS Please see today's EMR ALLERGIES Please see today's EMR VITAL SIGNS Please see today's EMR PHYSICAL EXAM Somewhat anxious-appearing young woman in no obvious physical distress. HEENT: Mucosa shows white charring with stripes on it on the inner aspect of the lip. There are no open ulcers. Dental condition is very poor. Some decay in the left posterior inferior molar. Again she has an appointment in 8 days with her dentist. She indicates that her dentist is Dr. Jacob in [place]. She identifies it as [facility]. IMPRESSION / REPORT / PLAN 1) Chronic dental pain 2) Mucosal thermal burn PLAN: Mucosal viscus lidocaine 2% as needed over the inner lips. Amoxicillin 500 mg 2 tabs twice daily for 10 days. Discussed with patient penicillin is a little better coverage than straight Keflex for the dental. She denies any allergies. She denies . As we are leaving she wonders about pain medication. I let her know that she can use ibuprofen and Tylenol. She said she was treated with narcotics in the Emergency Room. I did discuss with her that for a month-long process we would not be using narcotics and that her best bet is to get her dental work taken care of. She has had this issue for a month. In the meantime she can certainly use some of the viscus lidocaine both in the posterior molar. Pamella Figueroa M.D. sks Electronically Signed By: PAMELLA FIGUEROA MD On: 12/09/2011 07:47 PM Source: [facility] MHSDOLBEYNONRADSYS Document Id: [id number] documented in this encounter Miscellaneous Notes Miscellaneous - Benjamin Miles L.P.N. - 11/30/2011 4:31 PM CDT Adult Cognos Architect Intake/History Adult Cognos Architect Intake/History Entered On: 11/30/2011 16:34 CDT Performed On: 11/30/2011 16:31 CDT by BENJAMIN MILES Intake Chief Complaint : 1. tooth pain. Was in the E.R. 1 month ago and was given Keflex. Now pain is back. Seeing the dentiston 12/07. 2. Burn to lower lip. Onset of Symptoms : tooth pain on going. burn this am Temperature Oral : 36.8C(Converted to: 98.2DegF) Peripheral Pulse Rate : 76/min Respiratory Rate : 22/min (HI) Systolic Blood Pressure : 124mmHg Diastolic Blood Pressure : 80mmHg NIBP Mean : 95mmHg BP Location : Right upper extremity Blood Pressure Cuff Size : Regular Height : 163cm(Converted to: 5ft 4inch(es), 64.17inch(es)) Actual Weight : 51.5kg(Converted to: 113lb 9oz) Dosing Weight Clinic : 51.50kg Clinic BSA : 1.53 Body Mass Index : 19.38kg/m2 BENJAMIN MILES 11/30/2011 16:31 CDT Subjective Pain Symptoms : Yes BENJAMIN MILES 11/30/2011 16:31 CDT Pain Pain Assessment Grid Pain 1 Pain 2 Location : Tooth Mouth (Comment: lowe lip [BENJAMIN MILES - 11/30/2011 16:31 CDT] ) Intensity : 10 BENJAMIN MILES 11/30/2011 16:31 CDT BENJAMIN MILES 11/30/2011 16:31 CDT Dependent Habits Tobacco Use/Currently Using : Yes Smoking Status : Current every day smoker BENJAMIN MILES 11/30/2011 16:31 CDT Allergy Allergies (Active) Vicodin Estimated Onset Date: Unspecified ; Reactions: Hives, Breathing ; Created By: GARRETT JARRELL; Reaction Status: Active ; Category: Drug ; Substance: Vicodin ; Type: Allergy ; Severity: Severe ; Updated By: GARRETT JARRELL; Reviewed Date: 11/30/2011 16:30 CDT [facility] Document Id: [id number] CDT!29 documented in this encounter Plan of Treatment Not on filedocumented as of this encounter Visit Diagnoses Not on filedocumented in this encounter
--- OUTSIDE RECORDS SUMMARY | 2022-02-22 12:41 | XMS_ITS | Encounter Summary ---
:1985 Author Organization [facility] Address [address] [place] [address] Care Team Providers Name Role Phone Unavailable Primary Care Provider Unavailable Encounter Details Date Type Department Care Team Description 10/19/2011 Hospital Encounter HX NO MAPPING Lorne Gonsalves M.D. 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
--- OUTSIDE RECORDS SUMMARY | 2022-02-22 12:41 | XMS_ITS | Encounter Summary ---
:1985 Author Organization [facility] Address [address] [place] [address] Care Team Providers Name Role Phone Unavailable Primary Care Provider Unavailable Encounter Details Date Type Department Care Team Description 08/19/[address] 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
--- OUTSIDE RECORDS SUMMARY | 2022-02-22 12:41 | XMS_ITS | Encounter Summary ---
:1985 Author Organization [facility] Address [address] [place] [address] Care Team Providers Name Role Phone Unavailable Primary Care Provider Unavailable Encounter Details Date Type Department Care Team Description 05/28/2012 Hospital Encounter HX [facility] Osman M.D. 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 - 05/28/2012 11:02 AM CST Ambulatory Vitals Height Weight Ambulatory Vitals Height Weight Entered On: 05/28/2012 11:02 SMUDGER Performed On: 05/28/2012 11:02 SMUDGER by GAYATHRI GUTIERREZ Vitals/Ht/Wt Actual Weight : 56.0kg(Converted to: 123lb 7oz) Dosing Weight Clinic : 56.00kg GAYATHRI GUTIERREZ - 05/28/2012 11:02 SMUDGER [facility] POWERCHART Document Id: [id number] documented in this encounter Plan of Treatment Not on filedocumented as of this encounter Visit Diagnoses Not on filedocumented in this encounter
--- OUTSIDE RECORDS SUMMARY | 2022-02-22 12:41 | XMS_ITS | Encounter Summary ---
:1985 Author Organization [facility] Address [address] [place] [address] Care Team Providers Name Role Phone Unavailable Primary Care Provider Unavailable Encounter Details Date Type Department Care Team Description 09/27/2012 Hospital Encounter HX [facility] Osman M.D. [address] [place], [place] [phone] (Wo rk) Social History Tobacco Use Types [...] 1 to 4 times per year 05/18 protestant services? 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 - 09/27/2012 9:38 AM CDT [id number] HISTORY OF PRESENT ILLNESS Patient is a 27-year-old 1 at 34-4/7 weeks. She presents for obstetrical care. She has notednormal movement, occasional contractions. No bleeding vaginally. No leaking of fluid. On exam, abdomen is gravid and nontender. Fundal height is consistent with dates measuring 33 cm. Heart tones in the 140s. Cervix is 1 cm dilated, 50% effaced and -1 station and ballotable. The cervix is soft. BLOOD PRESSURE: 126/62. WEIGHT: 63.8 kg. IMPRESSION/REPORT/PLAN Slight cervical dilation at 34 weeks with the patient noting contractions. Given that she is , would ask that she do modified home bedrest at this point and I have given her a note stating such.We will see her back for a recheck in 1 week and she has an ultrasound performed today for dates. Patient had a question regarding carbamazepine and and I will inform her of my literature review at her next visit. Max Robert M.D./tigre DOCID: [id number] cc: Labor and Delivery Electronically Signed By: MAX ROBERT MD On: 09/28/2012 08:15 AM Source: [facility] MHSDOLBEYNONRADSYS Document Id: [id number] documented in this encounter Miscellaneous Notes Miscellaneous - Max Robert M.D. - 09/27/2012 10:15 AM CDT School or Work Excuse School or Work Excuse Entered On: 09/27/2012 10:15 CDT Performed On: 09/27/2012 10:15 CDT by MAX ROBERT MD School or Work Excuse Date Patient Seen : 09/27/2012 CDT Comment : patient is to be off work resting on modified home rest until MAX ROBERT MD - 09/27/2012 10:15 CDT Source: [employer] Document Id: [id number] Miscellaneous - Iris Brown, L.P.N. - 09/27/2012 9:41 AM CDT Adult Dean Of Student Services Intake/History Adult Dean Of Student Services Intake/History Entered On: 09/27/2012 9:44 CDT Performed On: 09/27/2012 9:41 CDT by IRIS BROWN Intake Chief Complaint : ob check 34 4/7 wk ob check Systolic Blood Pressure : 126mmHg Diastolic Blood Pressure : 62mmHg NIBP Mean : 83mmHg BP Location : Left upper extremity Blood Pressure Cuff Size : Regular Actual Weight : 63.8kg(Converted to: 140lb 10oz) Dosing Weight Clinic : 63.80kg IRIS BROWN - 09/27/2012 9:41 CDT General Info Languages : Greenlandic IRIS BROWN - 09/27/2012 9:41 CDT Subjective Pain Symptoms : No IRIS BROWN - 09/27/2012 9:41 CDT Dependent Habits Tobacco Use/Currently Using : Yes Exposure to Tobacco Smoke : Patient smokes Smoking Status : Current every day smoker IRIS BROWN - 09/27/2012 9:41 CDT Tobacco Use Grid Type : Cigarettes Cigarette Use Packs/Day : 0.2 IRIS BROWN - 09/27/2012 9:41 CDT Caffeine Use Grid Caffeine Use : Current Type : Coffee, Soft drinks Frequency : Daily Amount : 5 POTS IRIS BROWN - 09/27/2012 9:41 CDT Recreational Drug Use Grid Drug Use : None IRIS BROWN - 09/27/2012 9:41 CDT Allergy Allergies (Active) Vicodin Estimated Onset Date: Unspecified ; Reactions: Hives, Breathing ; Created By: GARRETT JARRELL; Reaction Status: Active ; Category: Drug ; Substance: Vicodin ; Type: Allergy ; Severity: Severe ; Updated By: GARRETT JARRELL; Reviewed Date: 09/27/2012 9:41 CDT Source: [facility] POWERCHART Document Id: [id number] documented in this encounter Plan of Treatment Not on filedocumented as of this encounter Procedures Procedure Name Priority Date/Time Associated Diagnosis Comme nts GRP B STREP (S. Routine 09/27/2012 10:21 AM Resul ts for this AGALACTIAE) CULTURE CDT procedur e are in the results section. documented in this encounter Results Grp B Strep (S. Agalactiae) Culture (09/27/2012 10:21 AM CDT) [facility] gist Method Time Signature Grp B Strep POWERCHART (S. agalactiae) Culture HXFinal Negative for POWERCHART Group B Strep by culture. Specimen (Source) Anatomical Collection Method Collection Time Re ceived Time Location / / Volume Laterality Vaginal/Rectum 09/27/2012 10:21 AM CDT Max Robert M.D. LAB MICROBIOLOGY - GENERAL O RDERABLES Performing Organization Address City/State/ZIP Code Phon e Number POWERCHART documented in this encounter Visit Diagnoses Not on filedocumented in this encounter
--- OUTSIDE RECORDS SUMMARY | 2022-02-22 12:41 | XMS_ITS | Encounter Summary ---
:1985 Author Organization [facility] Address [address] [place] [address] Care Team Providers Name Role Phone Unavailable Primary Care Provider Unavailable Encounter Details Date Type Department Care Team Description 08/30/2012 Hospital Encounter HX [facility] Osman M.D. 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 - 08/30/2012 10:07 AM CST [id number] CHIEF COMPLAINT / REASON FOR VISIT Obstetrical followup HISTORY OF PRESENT ILLNESS She is a 27-year-old 1 at 30 weeks' gestation. She had passed her glucose challenge. She didhave a sub-therapeutic Tegretol level last visit. She has now become better about taking her carbamazepine. She is doing well otherwise. Denies concerns. Baby has been active. No contractions, bleedingor leaking. PHYSICAL EXAM On exam fundal height is 30 cm. Baby is vertex by Moises's. Heart tones 140s. VITAL SIGNS BLOOD PRESSURE: 108/70 WEIGHT: 59.6 kg, up 6.5 kilograms for the gestation IMPRESSION / REPORT / PLAN 1. Seizure disorder, doing better on appropriate levels of Tegretol. We will recheck a Tegretol blood level today and keep her on 800 mg daily divided over twice daily dosing if the levels are therapeutic. If they are supratherapeutic would alternate days at 600 and 800 mg respectively in divided doses. She verbalized understanding of this plan. I will phone her at her phone number now provided as [phone] with results. Max Robert M.D./eloisa DOCID: [id number] Electronically Signed By: MAX ROBERT MD On: 08/31/2012 10:39 AM Source: [facility] MHSDOLBEYNONRADSYS Document Id: [id number] NESS AFFAIRS MANAGER documented in this encounter Miscellaneous Notes Miscellaneous - Max Robert M.D. - 08/30/2012 4:03 PM CST Ambulatory Patient Summary [facility] [address] [place] [address] Visit Information Name: PREET TURK [facility] Number: [id number] Current Date: 08/30/2012 16:03:36 Physicians Attending Provider: MAX ROBERT MD Primary Care Provider: PCP, ELSEWHERE Your Medications Here is a list of your medications. It is important to take your medications as directed. Use a pillbox or chart to help remind you to take your medications. Please let your doctor or nurse know if you have problems taking your medications. Medication/Strength Dose Route Frequency Indications/Special Instructions/Comments *carbamazepine (carbamazepine 200 mg oral tablet) 400 mg Oral two times a day multivitamin, ( Multivitamins with FA 0.8 mg oral tablet) 1 tab(s) Oral once a day *ondansetron (Zofran ODT 4 mg oral tablet, disintegrating) 4 mg Oral every 8 hours *folic acid (folic acid 0.8 mg oral tablet) 0.8 mg Oral four times a day * You have let us know that you are not taking this medication as listed. Please talk with your primary care provider or the health care provider who prescribed the medication as soon as possible. Attention: If you have any medications at [...] Upcoming Appointments Date Time Location Reason Provider 09/13/2012 09:30 [facility] FISH SALTER growth per srinivas 09/13/2012 10:00 [facility] FISH SALTER ob check Max Robert MD 09/27/2012 09:30 [facility] FISH SALTER growth per srinivas 09/27/2012 10:00 [facility] FISH SALTER ob check Max Robert MD Your Goals/Additional instructions: Source: [facility] POWERCHART Document Id: [id number] NESS AFFAIRS MANAGER Miscellcristofer - Max Robert M.D. - 08/30/2012 4:03 PM CST Ambulatory Depart Summary [address] [address] Visit Information Name: SANDHYAULISSES BERGERRA [facility] Number: [id number] Visit Date: 08/30/2012 16:03:36 Attending Provider: MAX ROBERT MD Primary Care Provider: PCP, TIERRA TURK PREET has been given the following list of medications: Your Medications It is important to take your medications as directed. Use a pill box or chart to help remind you to take your medications. Please let your doctor or nurse know if you have problems taking your medications. Medication/Strength Dose Route Frequency Indications/Special Instructions/Comments *carbamazepine (carbamazepine 200 mg oral tablet) 400 mg Oral two times a day multivitamin, ( Multivitamins with FA 0.8 mg oral tablet) 1 tab(s) Oral once a day *ondansetron (Zofran ODT 4 mg oral tablet, disintegrating) 4 mg Oral every 8 hours *folic acid (folic acid 0.8 mg oral tablet) 0.8 mg Oral four times a day * You have let us know that you are not taking this medication as listed. Please talk with your primary care provider or the health care provider who prescribed the medication as soon as possible. Attention: If you have any medications at home that are not on this list, DO NOT take them until youcontact your provider for clarification. Additional Information: Source: [facility] POWERCHART Document Id: [id number] NESS AFFAIRS MANAGER Adrianecellcristofer - Alexis Gutierrez L.P.N. - 08/30/2012 10:13 AM CST Adult Program Paraprofessional Intake/History Adult Program Paraprofessional Intake/History Entered On: 08/30/2012 10:14 BUSINESS AFFAIRS MANAGER Performed On: 08/30/2012 10:13 BUSINESS AFFAIRS MANAGER by ALEXIS GUTIERREZ Intake Chief Complaint : Ob check - see ACOG Ambulatory Intake Additional Information : 30 5/7 weeks gestation Systolic Blood Pressure : 108mmHg Diastolic Blood Pressure : 70mmHg NIBP Mean : 83mmHg BP Location : Left upper extremity Blood Pressure Cuff Size : Regular Actual Weight : 59.6kg(Converted to: 131lb 6oz) Dosing Weight Clinic : 59.60kg ALEXIS GUTIERREZ - 08/30/2012 10:13 BUSINESS AFFAIRS MANAGER General Info Languages : Kyrgyz ALEXIS GUTIERREZ - 08/30/2012 10:13 BUSINESS AFFAIRS MANAGER Subjective Pain Symptoms : No ALEXIS GUTIERREZ - 08/30/2012 10:13 BUSINESS AFFAIRS MANAGER Dependent Habits Tobacco Use/Currently Using : Yes Exposure to Tobacco Smoke : Patient smokes Smoking Status : Current every day smoker ALEXIS GUTIERREZ - 08/30/2012 10:13 BUSINESS AFFAIRS MANAGER Tobacco Use Grid Type : Cigarettes Cigarette Use Packs/Day : 0.2 ALEXIS GUTIERREZ - 08/30/2012 10:13 BUSINESS AFFAIRS MANAGER Caffeine Use Grid Caffeine Use : Current Type : Coffee, Soft drinks Frequency : Daily Amount : 5 POTS ALEXIS GUTIERREZ 08/30/2012 10:13 BUSINESS AFFAIRS MANAGER Recreational Drug Use Grid Drug Use : None ALEXIS GUTIERREZ 08/30/2012 10:13 BUSINESS AFFAIRS MANAGER Allergy Allergies (Active) Vicodin Estimated Onset Date: Unspecified ; Reactions: Hives, Breathing ; Created By: GARRETT JARRELL; Reaction Status: Active ; Category: Drug ; Substance: Vicodin ; Type: Allergy ; Severity: Severe ; Updated By: GARRETT JARRELL; Reviewed Date: 08/30/2012 10:12 BUSINESS AFFAIRS MANAGER Source: [facility] POWERCHART Document Id: [id number] NESS AFFAIRS MANAGER documented in this encounter Plan of Treatment Not on filedocumented as of this encounter Procedures Procedure Name Priority Date/Time Associated Comments Diagnosis CARBAMAZEPINE LEVEL, Routine 08/30/2012 10:54 Res ults for this TOT, S AM BUSINESS AFFAIRS MANAGER procedure are i n the results section. documented in this encounter Results Carbamazepine Level, Total (08/30/2012 10:54 AM BUSINESS AFFAIRS MANAGER) athologist Signature Carbamazepine, 9.5 MCGML POWERCHART Tot, S Comment: -- REFERENCE VALUE -- 4.0 - 12.0 (Toxic > or = 15.0) Test Performed by: [place] [address] Hot Walker: Xavi quevedo III, M.D. Specimen (Source) Anatomical Collection Method Collection Time Re ceived Time Location / / Volume Laterality Blood 08/30/2012 10:54 AM BUSINESS AFFAIRS MANAGER Max Robert M.D. LAB BLOOD ADD-ON Performing Organization Address City/State/ZIP Code Phon e Number POWERCHART documented in this encounter Visit Diagnoses Not on filedocumented in this encounter
--- OUTSIDE RECORDS SUMMARY | 2022-02-22 12:41 | XMS_ITS | Encounter Summary ---
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
--- OUTSIDE RECORDS SUMMARY | 2022-02-22 12:41 | XMS_ITS | Encounter Summary ---
:1985 Author Organization [facility] Address [address] [place] [address] Care Team Providers Name Role Phone Unavailable Primary Care Provider Unavailable Encounter Details Date Type Department Care Team Description 10/27/2011 Hospital Encounter HX NO MAPPING Evelio Infante M.D. 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
--- OUTSIDE RECORDS SUMMARY | 2022-02-22 12:41 | XMS_ITS | Encounter Summary ---
:1985 Author Organization [facility] Address [address] [place] [address] Care Team Providers Name Role Phone Unavailable Primary Care Provider Unavailable Encounter Details Date Type Department Care Team Description 09/03/2011 Hospital Encounter HX [facility]ENTCAR Dana Acuña, SPENSER, C.N.P. Social History Tobacco Use Types Packs/Day Years [...] at Date Recorded Female 06/09/2021 2:09 PM MELTING OPERATOR documented as of this encounter Last Filed Vital Signs Vital Sign Reading Time Taken Comments Blood Pressure 104/70 09/03/2011 3:21 PM MELTING OPERATOR Pulse 80 09/03/2011 3:21 PM MELTING OPERATOR Temperature - - Respiratory Rate 18 09/03/2011 3:21 PM MELTING OPERATOR Oxygen Saturation - - Inhaled Oxygen Concentration - - Weight 52.6 kg (115 lb 15.4 oz) 09/03/2011 3:21 PM MELTING OPERATOR Height - - Body Mass Index - - documented in this encounter Progress Notes Piedad Acuña - 09/03/2011 12:00 AM CST [id number] COMPLAINT/REASON FOR VISIT Tooth pain. HISTORY OF PRESENT ILLNESS Patient has significant pain with her teeth due to poor dentition, and she has several teeth that are broken. She was given Percocet from the [place] [facility] 2 weeks ago, and she is requesting a refill. She states she does have an appointment with a dentist in 3 weeks, and that is as soon as she can get in due to her needing a ride up to [facility]. Denies fever. Denies nausea, vomiting or diarrhea. Rates pain 12 out of a 10 on a pain scale. No other concerns or complaints. Primary care provider is Dr. Nini Brasher, out of [place], whom she has not seen for this problem. Current meds, allergies and vitals reviewed EMR dated 09/03/2011. No changes. PHYSICAL EXAM GENERAL: Well-nourished, well-developed, 26-year-old, female whom is non ill appearing, in no acute distress. MOUTH: Multiple teeth in poor repair. Several are broken to the point where possible root is exposed. Significant tartar buildup and apparent gingivitis. IMPRESSION/REPORT/PLAN Tooth pain PLAN: I did give her a small prescription of Percocet, quantity 12. I did encourage her to follow up with her primary care provider, and I suggested trying to get an earlier appointment in to see the dentist due to her significant pain. Thank you. Piedad Acuña M.S.Venessa, evens R.N., F.N.P.,B.C. Electronically Signed By: PIEDAD ACUÑA NP On: 09/20/2011 11:43 AM Source: [facility] MHSDOLBEYNONRADSYS Document Id: [id number] ING OPERATOR documented in this encounter Miscellaneous Notes Miscellaneous - Garrett Ureña L.P.N. - 09/03/2011 3:21 PM CST Adult Drafter Civil Engineering Intake/History Adult Drafter Civil Engineering Intake/History Entered On: 09/03/2011 15:26 MELTING OPERATOR Performed On: 09/03/2011 15:21 MELTING OPERATOR by GARRETT UREÑA Intake Chief Complaint : Pt broke a tooth in the back on the right side and one on the left side. Pt has a appointment with dentist but not until 3 weeks. Pt has pain meds for it but is out and is in severe pain. Onset of Symptoms : x 1 1/2 months Temperature Oral : 36.7C(Converted to: 98.1DegF) Peripheral Pulse Rate : 80/min Respiratory Rate : 18/min Systolic Blood Pressure : 104mmHg Diastolic Blood Pressure : 70mmHg NIBP Mean : 81mmHg BP Location : Right upper extremity Actual Weight : 52.6kg(Converted to: 115lb 15oz) Dosing Weight Clinic : 52.60kg GARRETT UREÑA - 09/03/2011 15:21 MELTING OPERATOR General Info Information Given By : Patient Preferred Communication Mode : Verbal Languages : Italian GARRETT UREÑA - 09/03/2011 15:21 MELTING OPERATOR Subjective Pain Symptoms : Yes GARRETT UREÑA - 09/03/2011 15:21 MELTING OPERATOR Pain Pain Assessment Grid Pain 1 Location : Tooth Intensity : 10 GARRETT UREÑA - 09/03/2011 15:21 MELTING OPERATOR Dependent Habits Tobacco Use/Currently Using : Yes Smoking Status : Current every day smoker GARRETT UREÑA - 09/03/2011 15:21 MELTING OPERATOR Allergy Allergies (Active) Vicodin Estimated Onset Date: Unspecified ; Reactions: Hives, Breathing ; Created By: GARRETT UREÑA; Reaction Status: Active ; Category: Drug ; Substance: Vicodin ; Type: Allergy ; Severity: Severe ; Updated By: GARRETT UREÑA; Reviewed Date: 09/03/2011 15:20 MELTING OPERATOR Source: [facility] POWERCHART Document Id: [id number] MELTING OPERATOR!27 ING OPERATOR documented in this encounter Plan of Treatment Not on filedocumented as of this encounter Visit Diagnoses Not on filedocumented in this encounter
--- OUTSIDE RECORDS SUMMARY | 2022-02-22 12:41 | XMS_ITS | Encounter Summary ---
:1985 Author Organization [facility] Address [address] [place] [address] Care Team Providers Name Role Phone Unavailable Primary Care Provider Unavailable Encounter Details Date Type Department Care Team Description 06/04/2012 Hospital Encounter HX [facility] Osman M.D. [address] [place], [place] [phone] (Wo rk) Social History Tobacco Use Types [...] at Date Recorded Female 06/09/2021 2:09 PM DOG WALKER documented as of this encounter Plan of Treatment Not on filedocumented as of this encounter Procedures Procedure Name Priority Date/Time Associated Diagnosis Comme nts US OB GREATER THAN Routine 06/04/2012 1:11 PM Res ults for this 14 WEEKS DOG WALKER procedure are i n the results section. documented in this encounter Results US OB Greater than 14 weeks (06/04/2012 1:11 PM DOG WALKER) Anatomical Region Laterality Modality Ultrasound Specimen (Source) Anatomical Collection Method Collection Time Re ceived Time Location / / Volume Laterality 06/04/2012 1:11 PM DOG WALKER Addenda Addendum by Provider, Pippa Yeung 06/04/2012 1:11 PM DOG WALKER RAD^^^OW US OB Greater than 14 weeks 06/04/2012 13:11:14 Impressions 06/04/2012 5:18 PM DOG WALKER 1. Viable with AGA of 18 weeks and 0 days, consistent with EDC of 11/05/2012. 2. anatomic survey appears within normal limits however suboptimal views of the heart were obtai rossy secondary to the early gestational age. Followup ultrasou nd to document normal cardiac anatomy could be considered.. In general, it is reasonable to use [...] aneuploidy, as well as congenital heart defects. Narrative 06/04/2012 5:18 PM DOG WALKER EXAM: US OB Greater than 14 weeks INDICATION: survey REFERRING PHYSICIAN: Jakob : 1 ?? PARA: 0 LMP: 01/28/2012 ? HAJA by LMP: 11/04/19 13 ?EGA by LMP: 18 weeks 2 days NUMBER: One ??CHORIONICITY: N/A PRESENTATION: Breech UTERUS: Visually normal. CERVIX: 3.1 cm measured transabdominally PLACENTA: Anterior with no evidence of p lacenta previa nor abruption. ADNEXA: Not imaged AMNIOTIC FLUID INDEX: Appropriate and no rmal for gestational age at 13.1 cm. BIOMETRY GA(BPD): 4.08 cm 18 weeks 2 days GA(HC): 15.0 cm 18 weeks 0 days GA(AC): 4.8 cm 18 weeks 2 days GA(FL): 2.44 cm 17 weeks 2 days GA(HL): 2.32 cm 17 weeks 0 days Based on the above, the average ultrasou nd age is 18 weeks and 0 days. See 'Impression' below for ultrasound ca lculation of Estimated Date of Delivery (HAJA). The following anatomic features we re well visualized and appear normal today: SPINE (longitudinal and transverse): Nor mal CEREBELLUM: Normal CISTERNA MAGNA: Normal NUCHAL FOLD: Normal LATERAL VENTRICLES: Normal CHOROID PLEXUS: Normal FOUR CHAMBER HEART: Poorly visualized HEART RATE: 145 beats per minute CARDIAC AXIS: Normal RIGHT AND LEFT OUTFLOW TRACTS: Left outf low tract appears to be within normal limits but right outflow t ract is difficult to visualize ANTERIOR ABDOMINAL WALL: Normal DIAPHRAGM: Normal CORD INSERTION: Normal THREE VESSEL CORD: Normal STOMACH: Normal BLADDER: Normal KIDNEYS: Normal EXTREMITIES (arms and legs): Normal HANDS AND FEET: Normal ORBITS: Normal PROFILE: Normal NOSE AND LIPS: Normal CORD INSERTION AT PLACENTA: Normal Procedure Note Ramesh Robert M.D. / Provider, Harry will M.D. - 12/07/2016 EXAM: US OB Greater than 14 weeks INDICATION: survey REFERRING PHYSICIAN: Jakob : 1 PARA: 0 LMP: 01/28/2012 HAJA by LMP: 11/03/2012 EGA by LMP: 18 weeks 2 days NUMBER: One CHORIONICITY: N/A PRESENTATION: Breech UTERUS: Visually normal. CERVIX: 3.1 cm measured transabdominally PLACENTA: Anterior with no evidence of p lacenta previa nor abruption. ADNEXA: Not imaged AMNIOTIC FLUID INDEX: Appropriate and no rmal for gestational age at 13.1 cm. BIOMETRY GA(BPD): 4.08 cm 18 weeks 2 days GA(HC): 15.0 cm 18 weeks 0 days GA(AC): 4.8 cm 18 weeks 2 days GA(FL): 2.44 cm 17 weeks 2 days GA(HL): 2.32 cm 17 weeks 0 days Based on the above, the average ultrasou nd age is 18 weeks and 0 days. See 'Impression' below for ultrasound ca lculation of Estimated Date of Delivery (HAJA). The following anatomic features we re well visualized and appear normal today: SPINE (longitudinal and transverse): Nor mal CEREBELLUM: Normal CISTERNA MAGNA: Normal NUCHAL FOLD: Normal LATERAL VENTRICLES: Normal CHOROID PLEXUS: Normal FOUR CHAMBER HEART: Poorly visualized HEART RATE: 145 beats per minute CARDIAC AXIS: Normal RIGHT AND LEFT OUTFLOW TRACTS: Left outf low tract appears to be within normal limits but right outflow t ract is difficult to visualize ANTERIOR ABDOMINAL WALL: Normal DIAPHRAGM: Normal CORD INSERTION: Normal THREE VESSEL CORD: Normal STOMACH: Normal BLADDER: Normal KIDNEYS: Normal EXTREMITIES (arms and legs): Normal HANDS AND FEET: Normal ORBITS: Normal PROFILE: Normal NOSE AND LIPS: Normal CORD INSERTION AT PLACENTA: Normal IMPRESSION: 1. Viable with AGA of 18 weeks and 0 days, consistent with EDC of 11/05/2012. 2. anatomic survey appears within normal limits however suboptimal views of the heart were obtai rossy secondary to the early gestational age. Followup ultrasou nd to document normal cardiac anatomy could be considered.. In general, it is reasonable to use [...] aneuploidy, as well as congenital heart defects. Historical Provider IMG OB US PROCEDURES documented in this encounter Visit Diagnoses Not on filedocumented in this encounter
--- OUTSIDE RECORDS SUMMARY | 2022-02-22 12:41 | XMS_ITS | Encounter Summary ---
:1985 Author Organization [facility] Address [address] [place] [address] Care Team Providers Name Role Phone Unavailable Primary Care Provider Unavailable Encounter Details Date Type Department Care Team Description 07/02/2012 Hospital Encounter HX [facility] Osman M.D. [address] [place], [place] [address] (Wo rk) Social History Tobacco Use Types [...] at Date Recorded Female 06/09/2021 2:09 PM CEMENT MIXER DRIVER documented as of this encounter Last Filed Vital Signs Vital Sign Reading Time Taken Comments Blood Pressure 120/70 07/02/2012 2:04 PM CEMENT MIXER DRIVER Pulse - - Temperature - - Respiratory Rate - - Oxygen Saturation - - Inhaled Oxygen Concentration - - Weight 56.5 kg (124 lb 9 oz) 07/02/2012 2:04 PM CEMENT MIXER DRIVER Height - - Body Mass Index 20.83 04/03/2012 4:12 PM CDT documented in this encounter Progress Notes Max Robert M.D. - 07/02/2012 1:57 PM CST [id number] CHIEF COMPLAINT / REASON FOR VISIT Obstetrical followup HISTORY OF PRESENT ILLNESS She is a 27-year-old 1 at 22 weeks' gestation with a history of a seizure disorder on carbamazepine. Please see her previously noted survey. She denies concerns today, although she has had a bout of contractions which has responded to rest. She denies bleeding or leaking or pelvic pressure today. PHYSICAL EXAM Abdomen is gravid and nontender. On exam fundal height is 22 cm. Baby is vertex by Moises's. Heart tones 140s. VITAL SIGNS BLOOD PRESSURE: 120/70 WEIGHT: 56.5 kg IMPRESSION / REPORT / PLAN Stable at 22 weeks. Will bring her back for a recheck in 1 month. We will do a growth ultrasound at that point. The Tegretol level along with CBC, liver panel and her OB 50 at that point. We will adjust her Tegretol level as needed at that point and I did also refill her vitamins today. Have her call in the interval with concerns. Max Robert M.D./marisela cc: Labor and Delivery Electronically Signed By: MAX ROBERT MD On: 07/04/2012 12:05 PM Source: [facility] MHSDOLBEYNONRADSYS Document Id: [id number] NT MIXER DRIVER documented in this encounter Miscellaneous Notes Miscellaneous - Max Robert M.D. - 07/02/2012 3:35 PM CST Ambulatory Patient Summary [facility] [address] [place] [address] Visit Information Name: PREET TURK [facility] Number: [id number] Current Date: 07/02/2012 15:35:29 Physicians Attending Provider: MAX ROBERT MD Primary [...] Dose Route Frequency Indications/Special Instructions/Comments multivitamin, ( Multivitamins with FA 0.8 mg oral tablet) 1 tab(s) Oral once a day *ondansetron (Zofran ODT 4 mg oral tablet, disintegrating) 4 mg Oral every 8 hours folic acid (folic acid 0.8 mg oral tablet) 0.8 mg Oral four times a day carbamazepine (carbamazepine 200 mg oral tablet) See Instructions 1 tab(s) PO IN THE MORNING AND 2 TABS IN THE EVENING * You have let us know that [...] Upcoming Appointments Date Time Location Reason Provider 07/30/2012 09:00 [facility] 07/31/2012 09:30 [facility] INDUSTRIAL CHEMIST ob follow up Max Robert MD Your Goals/Additional instructions: Source: [facility] POWERCHART Document Id: [id number] NT MIXER DRIVER Radha - Max Robert M.D. - 07/02/2012 3:35 PM CST Ambulatory Depart Summary [facility] [address] [place] [id number] Visit Information Name: PREET TURK [facility] Number: [id number] Visit Date: 07/02/2012 15:35:28 Attending Provider: MAX ROBERT MD Primary Care Provider: PCP, ELSEWHERE PREET TURK has been given the following list of medications: Your Medications It is important to take your medications as directed. Use a pill box or chart to help remind you to take your medications. Please let your doctor or nurse know if you have problems taking your medications. Medication/Strength Dose Route Frequency Indications/Special Instructions/Comments multivitamin, ( Multivitamins with FA 0.8 mg oral tablet) 1 tab(s) Oral once a day *ondansetron (Zofran ODT 4 mg oral tablet, disintegrating) 4 mg Oral every 8 hours folic acid (folic acid 0.8 mg oral tablet) 0.8 mg Oral four times a day carbamazepine (carbamazepine 200 mg oral tablet) See Instructions 1 tab(s) PO IN THE MORNING AND 2 TABS IN THE EVENING * You have let us know that you are not taking this medication as listed. Please talk with your primary care provider or the health care provider who prescribed the medication as soon as possible. Attention: If you have any medications at home that are not on this list, DO NOT take them until youcontact your provider for clarification. Additional Information: Source: [facility] POWERCHART Document Id: [id number] NT MIXER DRIVER Radha - Irsi Brown, L.P.N. - 07/02/2012 2:04 PM CST Adult Circuit Judge Intake/History Adult Circuit Judge Intake/History Entered On: 07/02/2012 14:07 CEMENT MIXER DRIVER Performed On: 07/02/2012 14:04 CEMENT MIXER DRIVER by IRIS BROWN Intake Chief Complaint : 22 2/7 wk ob check Systolic Blood Pressure : 120mmHg Diastolic Blood Pressure : 70mmHg NIBP Mean : 87mmHg BP Location : Left upper extremity Blood Pressure Cuff Size : Regular Actual Weight : 56.5kg(Converted to: 124lb 9oz) Dosing Weight Clinic : 56.50kg IRIS BROWN - 07/02/2012 14:04 CEMENT MIXER DRIVER Subjective Pain Symptoms : No IRIS BROWN 07/02/2012 14:04 CEMENT MIXER DRIVER Dependent Habits Tobacco Use/Currently Using : Yes Exposure to Tobacco Smoke : Patient smokes Smoking Status : Current every day smoker IRIS BROWN - 07/02/2012 14:04 CEMENT MIXER DRIVER Tobacco Use Grid Type : Cigarettes Cigarette Use Packs/Day : 0.2 IRIS BROWN 07/02/2012 14:04 CEMENT MIXER DRIVER Caffeine Use Grid Caffeine Use : Current Type : Coffee, Soft drinks Frequency : Daily Amount : 5 POTS IRIS BROWN 07/02/2012 14:04 CEMENT MIXER DRIVER Recreational Drug Use Grid Drug Use : None IRIS BROWN 07/02/2012 14:04 CEMENT MIXER DRIVER Allergy Allergies (Active) Vicodin Estimated Onset Date: Unspecified ; Reactions: Hives, Breathing ; Created By: GARRETT JARRELL; Reaction Status: Active ; Category: Drug ; Substance: Vicodin ; Type: Allergy ; Severity: Severe ; Updated By: GARRETT JARRELL; Reviewed Date: 07/02/2012 14:04 CEMENT MIXER DRIVER Source: [facility] POWERCHART Document Id: [id number] NT MIXER DRIVER documented in this encounter Plan of Treatment Not on filedocumented as of this encounter Visit Diagnoses Not on filedocumented in this encounter
--- OUTSIDE RECORDS SUMMARY | 2022-02-22 12:41 | XMS_ITS | Encounter Summary ---
:1985 Author Organization [facility] Address [address] [place] [address] Care Team Providers Name Role Phone Unavailable Primary Care Provider Unavailable Encounter Details Date Type Department Care Team Description 03/28/2012 Hospital Encounter HX [facility] Santhosh Meléndez M.D. [address] [place] [address] (Wo rk) Social History Tobacco [...] at Date Recorded Female 06/09/2021 2:09 PM BI TECHNICAL LEAD documented as of this encounter Last Filed Vital Signs Vital Sign Reading Time Taken Comments Blood Pressure 96/64 03/28/2012 4:32 PM CDT Pulse 100 03/28/2012 4:32 PM CDT Temperature - - Respiratory Rate 18 03/28/2012 4:32 PM CDT Oxygen Saturation - - Inhaled Oxygen Concentration - - Weight 52.8 kg (116 lb 6.5 oz) 03/28/2012 4:32 PM CDT Height 163 cm (5' 4.17) 03/28/2012 4:32 PM CDT Body Mass Index 19.87 03/28/2012 4:32 PM CDT documented in this encounter Miscellaneous Notes Miscellaneous - Toan Meléndez M.D. - 03/28/2012 4:54 PM CDT Ambulatory Patient Summary [address] [address] Visit Information Name: PREET TURK Current Date: 03/28/2012 16:54:21 Physicians Attending Provider: MARC1, PROVIDER Primary Care Provider: PCP, ELSEWHERE Your Medications Here is a list of your medications. It is important to take your medications as directed. Use a pillbox or chart to help remind you to take your medications. Please let your doctor or nurse know if you have problems taking your medications. Medication/Strength Dose Route Frequency Indications/Special Instructions/Comments multivitamin, ( Multivitamins) 1 tab(s) Oral once a day carbamazepine (carbamazepine 200 mg oral tablet) See Instructions 1 tab(s) PO IN THE MORNING AND 2 TABS IN THE EVENING amoxicillin (amoxicillin 500 mg oral tablet) 1,000 mg Oral once a day Attention: If you [...] Upcoming Appointments Date Time Location Reason Provider 04/18/2012 14:00 HB Neurology [facility] Donita Ureña MD Your Goals/Additional instructions: Source: [facility] POWERCHART Document Id: [id number] Adrianecellcristofer - Toan Meléndez M.D. - 03/28/2012 4:54 PM CDT Ambulatory Depart Summary [facility] [address] [place] [address] Visit Information Name: PREET TURK Visit Date: 03/28/2012 16:54:20 Attending Provider: UNKNOWN1, PROVIDER Primary Care Provider: PCP, ELSEWHERE SANDHYAPREET BERGER has been given the following list of medications: Your Medications It is important to take your medications as directed. Use a pill box or chart to help remind you to take your medications. Please let your doctor or nurse know if you have problems taking your medications. Medication/Strength Dose Route Frequency Indications/Special Instructions/Comments multivitamin, ( Multivitamins) 1 tab(s) Oral once a day carbamazepine (carbamazepine 200 mg oral tablet) See Instructions 1 tab(s) PO IN THE MORNING AND 2 TABS IN THE EVENING amoxicillin (amoxicillin 500 mg oral tablet) 1,000 mg Oral once a day Attention: If you have any medications at home that are not on this list, DO NOT take them until youcontact your provider for clarification. Additional Information: Source: [facility] POWERCHART Document Id: [id number] Radha - Lee Cristobal, R.N. - 03/28/2012 4:32 PM CDT Adult Vice President Client Services Intake/History Adult Vice President Client Services Intake/History Entered On: 03/28/2012 16:34 CDT Performed On: 03/28/2012 16:32 CDT by LEE CRISTOBAL Intake Chief Complaint : missed menstural cycle x 2 cycles. LMP Date : 01/28/12 Temperature Oral : 36.9C(Converted to: 98.4DegF) Peripheral Pulse Rate : 100/min Respiratory Rate : 18/min Systolic Blood Pressure : 96mmHg Diastolic Blood Pressure : 64mmHg NIBP Mean : 75mmHg BP Location : Right upper extremity Height : 163.0cm(Converted to: 5ft 4inch(es), 64.17inch(es)) Actual Weight : 52.8kg(Converted to: 116lb 6oz) Dosing Weight Clinic : 52.80kg Clinic BSA : 1.55 Body Mass Index : 19.87kg/m2 LEE CRISTOBAL - 03/28/2012 16:32 CDT General Info Information Given By : Patient Preferred Communication Mode : Verbal Languages : Chadian LEE CRISTOBAL - 03/28/2012 16:32 CDT Subjective Pain Symptoms : No LEE CRISTOBAL - 03/28/2012 16:32 CDT Dependent Habits Tobacco Use/Currently Using : Yes Tobacco Use/Advised to Quit : Yes Exposure to Tobacco Smoke : Patient smokes Smoking Status : Current every day smoker LEE CRISTOBAL - 03/28/2012 16:32 CDT Tobacco Use Grid Type : Cigarettes Cigarette Use Packs/Day : 0.5 LEE CRISTOBAL - 03/28/2012 16:32 CDT Caffeine Use Grid Caffeine Use : Current Type : Coffee, Soft drinks Frequency : Daily Amount : 5 POTS LEE CRISTOBAL - 03/28/2012 16:32 CDT Recreational Drug Use Grid Drug Use : None LEE CRISTOBAL - 03/28/2012 16:32 CDT Allergy Allergies (Active) Vicodin Estimated Onset Date: Unspecified ; Reactions: Hives, Breathing ; Created By: GARRETT JARRELL; Reaction Status: Active ; Category: Drug ; Substance: Vicodin ; Type: Allergy ; Severity: Severe ; Updated By: GARRETT JARRELL; Reviewed Date: 01/06/2012 15:39 CDT Source: [facility] 800APPCHART Document Id: [id number] documented in this encounter Plan of Treatment Not on filedocumented as of this encounter Procedures Procedure Name Priority Date/Time Associated Diagnosis Comme nts TEST, U Routine 03/28/2012 4:47 PM Resu lts for this CDT procedure are i n the results section. documented in this encounter Results Test, Qualitative, Urine (03/28/2012 4:47 PM CDT) [facility] gist Method Time Signature HXBeta-hCG Positive POWERCHART Qualitative Urine Specimen (Source) Anatomical Collection Method Collection Time Re ceived Time Location / / Volume Laterality Urine 03/28/2012 4:47 PM CDT Toan Meléndez M.D. LAB URINE ORDERABLES Performing Organization Address City/State/ZIP Code Phon e Number POWERCHART documented in this encounter Visit Diagnoses Not on filedocumented in this encounter
--- OUTSIDE RECORDS SUMMARY | 2022-02-22 12:41 | XMS_ITS | Encounter Summary ---
:1985 Author Organization [facility] Address [address] [place] [address] Care Team Providers Name Role Phone Unavailable Primary Care Provider Unavailable Encounter Details Date Type Department Care Team Description 11/13/2006 Hospital Encounter HX NO MAPPING Tosha Cortés ra, M.D. [address] [place] [address] (Wo rk) Social History Tobacco Use Types [...] Date Recorded Female 06/09/2021 2:09 PM MANAGER SOCIAL MEDIA documented as of this encounter Progress Notes Charito Cortés M.D. - 11/13/2006 12:00 [place] [address] Name: PREET TURK MR#: [id number] : 83 Dictating Provider: Charito Cortés MD Serv Date: 11/13/06 CLINIC NOTE S: This is a 21-year-old young lady who comes in stating that she has been out of her seizure medications for about a month. She does not know what she takes and she was not sure what pharmacy she got them from either. 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 She is supposed to see him every 6 months, but has not had transportation. She is not sure what pharmacy she got her last prescription at. She has not had any blood tests since before I went into treatment which was last February. She has now moved to [place]. She denies taking any other medications. She does smoke. O: Weight 63.4. Height 162. Temperature 36.5. Pulse 64. Respirations 20. Blood pressure 108/84. She is a pleasant young lady in no acute distress. Physical examination otherwise was not done in detail. A: SEIZURE DISORDER. P: We called several pharmacies in [place] and were able to determine that she has been getting Tegretol XR 200 mg taking 1 b.i.d. I will give her a months prescription. At that point she needs to get in for some blood work either with myself or her neurologist. In the meantime, we gave her information release forms to sign which her mother will help her with. Charito Cortés MD /ken Authenticated by Charito Cortés MD on 11/17/2006 15:52:42 Authorized physician signature on file [facility] NAME: PREET TURK [facility] MR#: [id number] EME[address] [id number] : 1985 PHYSICIAN: Charito Cortés MD VISIT DATE: 11/13/2006 CLINIC PROGRESS NOTE [facility] Name: PREET TURK [facility] PROGRESS NOTE Source[facility] ISJHXDICTAPHONESYS Document Id: [id number] Electronically signed by Conversion, [facility] Meat Slicer [id number] at 12/19/2016 7:33 AM CDT documented in this encounter Plan of Treatment Not on filedocumented as of this encounter Visit Diagnoses Not on filedocumented in this encounter
--- OUTSIDE RECORDS SUMMARY | 2022-02-22 12:41 | XMS_ITS | Encounter Summary ---
:1985 Author Organization [facility] Address [address] [place] [address] Care Team Providers Name Role Phone Unavailable Primary Care Provider Unavailable Encounter Details Date Type Department Care Team Description 05/28/2012 Hospital Encounter HX [facility] Max Robert M.D. [address] [place], [place] [address] (Wo rk) Social History Tobacco Use Types [...] at Date Recorded Female 06/09/2021 2:09 PM MINING HELPER documented as of this encounter Miscellaneous Notes Miscellaneous - Max Robert M.D. - 05/29/2012 11:59 AM CST Results Notification From: MAX ROBERT MD To: YOSI REY Sent: 05/29/2012 11:59:43 MINING HELPER ! Show up: 05/29/2012 17:59:43 [facility] Subject: Results Notification Actions: Notify patient-refer to General Message Source: [facility] [employer] Document Id: [id number] documented in this encounter Plan of Treatment Not on filedocumented as of this encounter Procedures Procedure Name Priority Date/Time Associated Diagnosis Comme nts QUAD SCRN (SECOND Routine 05/28/2012 10:42 AM Res ults for this TRIMESTER) MINING HELPER procedure are i n MATERNAL, S the results section. documented in this encounter Results Quad Screen (Second Trimester) Maternal (05/28/2012 10:42 AM MINING HELPER) [facility] Method Time Signature Calculated Age 27 years POWERCHART at HAJA Weight in Kg 123 POWERCHART Weight in Kg 56 KG POWERCHART Insulin None POWERCHART Dependent Diabetes HXQuad non-Black POWERCHART Race-Troy HAJA by LMP 11/03/2012 POWERCHART GA on 17,2 POWERCHART collection by dates HXQuad GA Rsk Dates POWERCHART Est-Troy estimate AFP Quad See Comment POWERCHART Interp Comment: RESULT: 1.80 MoM ( 78.0 ng/mL ) Estriol, Unconjugated See Comment POWERC BOSS Comment: RESULT: 1.04 MoM ( 1.29 ng/mL ) HCG, Quantitative, , S See Comment POWERCHART Comment: RESULT: 0.67 MoM ( 14.6 IU/mL ) HX Inhibin-Troy See Comment POWERCHART Comment: RESULT: 1.52 MoM ( 276 pg/mL ) Down syndrome screen risk estimate < 1/50,000 POWERCHART Down syndrome maternal age risk 860 POWERCHART Trisomy 18 screen risk estimate < 1/100 POWERCHART Interpretation See Comment POWERCHART Comment: Screen negative for neural tube defects and Down syndrome. The risk for trisomy 18 is less than 1%. HXQuad Follow Up-Troy None. POWERCHA RT HXQuad Gnrl Info-Troy See Comment [facility] Comment: This screening provides an estimation of risk, not a diagnosis. Incorrect or incomplete infor mation may significantly alter results. Risks are a djusted for donor eggs, frozen embryos, and IVF. Results may be unreliable in twin pregna ncies with a demise. Results are not available for pr egnancies with triplets and higher-order multiples. A positive result occurs when the risk f or Down syndrome equals or exceeds 1 in 270, when the ris k for trisomy 18 equals or exceeds 1 in 100, or when the AFP MoM equals or exceeds 2.5. Screen results and family history influe nce individual risk. If there is a family history of a neural tube defect, chromosome abnormality, or other inherit ed condition, consider the option of a genetic consult ation. For further information, please contact the maternal screening laboratory at . Other Information Initial testing ISMAEL [facility]ARYN Comment: Test Performed by: [place] [address] Ceramic Coater: Xavi quevedo III, M.D. Specimen (Source) Anatomical Collection Method Collection Time Re ceived Time Location / / Volume Laterality Blood 05/28/2012 10:42 AM MINING HELPER Max Robert M.D. LAB BLOOD ADD-ON Performing Organization Address City/State/ZIP Code Phon e Number POWERCHART documented in this encounter Visit Diagnoses Not on filedocumented in this encounter
--- OUTSIDE RECORDS SUMMARY | 2022-02-22 12:41 | XMS_ITS | Encounter Summary ---
:1985 Author Organization [facility] Address [address] [place] [address] Care Team Providers Name Role Phone Unavailable Primary Care Provider Unavailable Encounter Details Date Type Department Care Team Description 04/04/2012 Hospital Encounter HX [facility] Osman M.D. [address] [place], [place] [id number] (Wo rk) Social History Tobacco Use Types [...] at Date Recorded Female 06/09/2021 2:09 PM SHED BOSS documented as of this encounter Last Filed Vital Signs Vital Sign Reading Time Taken Comments Blood Pressure 120/70 04/04/2012 1:50 PM CDT Pulse - - Temperature - - Respiratory Rate - - Oxygen Saturation - - Inhaled Oxygen Concentration - - Weight 53.1 kg (117 lb 1 oz) 04/04/2012 1:50 PM CDT Height - - Body Mass Index 19.57 04/03/2012 4:12 PM CDT documented in this encounter H&P Notes Max Robert M.D. - 04/04/2012 12:00 AM CDT [id number] CHIEF COMPLAINT / REASON FOR VISIT Obstetrical care HISTORY OF PRESENT ILLNESS Patient is a 27-year-old 1, para 0 with an LMP of 01/28/2012 and an EDC of 11/03/12 based on that menstrual date. She has noted nausea and is typically getting up and throwing up in the morning typically about 2 a.m. Denies bleeding or cramping at this time. She has maintained weight initially. Past medical history is significant for kidney stones and history of a seizure most recently I believe about 3 years ago. She was maintained on carbamazepine for her seizure disorder. She is a bit worried that she may become subtherapeutic and seize again given her nausea and vomiting of her . Past medical history also significant for kidney stones requiring a stent. She has also had a tonsillectomy. Her history of Pap smears she believes was most recently about a year ago. She did have a DTaP in 2002. She is uncertain as to her past medical family history secondary to being adopted. PHYSICAL EXAM She is a female, not acutely distressed Neck is supple without thyromegaly, mass or nodule. Lungs are clear to auscultation bilaterally. Heart is regular without gallop, rub or murmur. BLOOD PRESSURE: 120/70 WEIGHT: 53.1 kilos Breasts are symmetric and diffusely fibroglandular without dominant mass or nodule. Axillary and supraclavicular regions are negative for lymphadenopathy. Abdomen is soft, nontender, nondistended. No organomegaly, mass or hernia palpated. Pelvis demonstrates normal external female genitalia. Urethra, anus, vulva, vagina, and cervix appear normal. Bimanual exam reveals somewhat narrowed subpubic arch but otherwise grossly normal pelvimetry. Please see dictated ultrasound report. IMPRESSION / REPORT / PLAN New OB. We will have her follow up for recheck in 1 month. She is considering the option of an early screen for Down syndrome and aneuploidy screening as well. We also discussed safety, nutrition, follow up, call schedule and have scheduled her for a follow up visit again in a month. Max Robert M.D. [facility] cc: Labor and Delivery Electronically Signed By: MAX ROBERT MD On: 04/05/2012 01:25 PM Source: [facility] MHSDOLBEYNONRADSYS Document Id: [id number] documented in this encounter Miscellaneous Notes Miscellaneous - Max Robert M.D. - 04/04/2012 4:52 PM CDT Ambulatory Depart Summary [address] [address] Visit Information Name: NAVARROROGEPREET Visit Date: 04/04/2012 16:52:37 Attending Provider: MAX ROBERT MD Primary Care Provider: PCP, ELSEWHERE ULISSES TURKRA has been given the following list of medications: Your Medications It is important to take your medications as directed. Use a pill box or chart to help remind you to take your medications. Please let your doctor or nurse know if you have problems taking your medications. Medication/Strength Dose Route Frequency Indications/Special Instructions/Comments ondansetron (Zofran ODT 4 mg oral tablet, disintegrating) 4 mg Oral every 8 hours folic acid (folic acid 0.8 mg oral tablet) 0.8 mg Oral four times a day multivitamin, ( Multivitamins) 1 tab(s) Oral once a day carbamazepine (carbamazepine 200 mg oral tablet) See Instructions 1 tab(s) PO IN THE MORNING AND 2 TABS IN THE EVENING Attention: If you have any medications at home that are not on this list, DO NOT take them until youcontact your provider for clarification. Additional Information: Source: [facility] POWERCHART Document Id: [id number] Miscellaneous - Max Robert M.D. - 04/04/2012 4:52 PM CDT Ambulatory Patient Summary [facility] [address] [place] [address] Visit Information Name: PREET TURK Current Date: 04/04/2012 16:52:38 Physicians Attending Provider: MAX ROEBRT MD Primary Care Provider: PCP, ELSEWHERE Your Medications Here is a list of your medications. It is important to take your medications as directed. Use a pillbox or chart to help remind you to take your medications. Please let your doctor or nurse know if you have problems taking your medications. Medication/Strength Dose Route Frequency Indications/Special Instructions/Comments ondansetron (Zofran ODT 4 mg oral tablet, disintegrating) 4 mg Oral every 8 hours folic acid (folic acid 0.8 mg oral tablet) 0.8 mg Oral four times a day multivitamin, ( Multivitamins) 1 tab(s) Oral once a day carbamazepine (carbamazepine 200 mg oral tablet) See Instructions 1 tab(s) PO IN THE MORNING AND 2 TABS IN THE EVENING Attention: If you have any medications at [...] Date Time Location Reason Provider 04/18/2012 14:00 [facility] Neurology PER [facility] EPILEPSY Donita Ureña MD 05/07/2012 13:30 [facility] STEWARDESS SUPERVISOR ob check Max Robert MD Your Goals/Additional instructions: [facility] Document Id: [id number] Miscellaneous - Iris Brown, L.P.N. - 04/04/2012 1:50 PM CDT Adult Vp Delivery Intake/History Adult Vp Delivery Intake/History Entered On: 04/04/2012 13:53 CDT Performed On: 04/04/2012 13:50 CDT by IRIS BROWN Intake Chief Complaint : NOB LMP 01-28-12 , HAJA 11-03-12 Systolic Blood Pressure : 120mmHg Diastolic Blood Pressure : 70mmHg NIBP Mean : 87mmHg BP Location : Left upper extremity Blood Pressure Cuff Size : Regular Actual Weight : 53.1kg(Converted to: 117lb 1oz) Dosing Weight Clinic : 53.10kg IRIS BROWN - 04/04/2012 13:50 CDT Subjective Pain Symptoms : No IRIS BROWN - 04/04/2012 13:50 CDT Dependent Habits Tobacco Use/Currently Using : Yes Exposure to Tobacco Smoke : Patient smokes Smoking Status : Current every day smoker IRIS BROWN - 04/04/2012 13:50 CDT Tobacco Use Grid Type : Cigarettes Cigarette Use Packs/Day : 0.2 IRIS BROWN - 04/04/2012 13:50 CDT Caffeine Use Grid Caffeine Use : Current Type : Coffee, Soft drinks Frequency : Daily Amount : 5 POTS IRIS BROWN - 04/04/2012 13:50 CDT Recreational Drug Use Grid Drug Use : None IRIS BROWN - 04/04/2012 13:50 CDT Allergy Allergies (Active) Vicodin Estimated Onset Date: Unspecified ; Reactions: Hives, Breathing ; Created By: GARRETT JARRELL; Reaction Status: Active ; Category: Drug ; Substance: Vicodin ; Type: Allergy ; Severity: Severe ; Updated By: GARRETT JARRELL; Reviewed Date: 04/04/2012 13:47 CDT [facility] Document Id: [id number] documented in this encounter Plan of Treatment Not on filedocumented as of this encounter Procedures Procedure Name Priority Date/Time Associated Comments Diagnosis N GONOR AMP SRC Routine 04/04/2012 3:48 PM Result s for this CDT procedure are i n the results section. N GONOR AMP DNA Routine 04/04/2012 3:48 PM Result s for this CDT procedure are i n the results section. C TRACH AMP SRC Routine 04/04/2012 3:48 PM Result s for this CDT procedure are i n the results section. HX CHLAMYDIA Routine 04/04/2012 3:48 PM Results f or this TRACHOMATIS AMPLIFIED CDT proced ure are in DNA-ID the results section. PATHOLOGY STRENGTH AND CONDITIONING COACH Routine 04/04/2012 12:00 Results fo r this CYTOLOGY AM CDT procedure are i n the results section. documented in this encounter Results HX-N gonor Amp DNA (04/04/2012 3:48 PM CDT) athologist Signature HXN gonor Amp Negative POWERCHART DNA-[place] Specimen (Source) Anatomical Collection Method Collection Time Re ceived Time Location / / Volume Laterality 04/04/2012 3:48 PM CDT Narrative POWERCHART - 04/05/2012 2:51 PM CDT Test Performed by: [place] [address] Finishing Tunnel Operator: Xavi quevedo III, M.D. Max Robert M.D. LAB HISTORICAL ORDERS Performing Organization Address City/State/ZIP Code Phon e Number POWERCHART HX-N gonor Amp Src (04/04/2012 3:48 PM CDT) athologist Signature HXN gonor Amp Cervix POWERCHART Src-[place] Specimen (Source) Anatomical Collection Method Collection Time Re ceived Time Location / / Volume Laterality 04/04/2012 3:48 PM CDT Max Robert M.D. LAB HISTORICAL ORDERS Performing Organization Address City/State/ZIP Code Phon e Number POWERCHART HX Hx Chlamydia Trachomatis Amplified Dna-Id (04/04/2012 3:48 PM CDT) [facility] gist Method Time Signature Chlamydia Negative POWERCHART Trachomatis Amplied DNA Specimen (Source) Anatomical Collection Method Collection Time Re ceived Time Location / / Volume Laterality 04/04/2012 3:48 PM CDT Max Robert M.D. LAB HISTORICAL ORDERS Performing Organization Address City/State/ZIP Code Phon e Number POWERCHART HX-C trach Amp Src (04/04/2012 3:48 PM CDT) P athologist Signature HXC trach Amp Cervix POWERCHART Src-[place] Specimen (Source) Anatomical Collection Method Collection Time Re ceived Time Location / / Volume Laterality 04/04/2012 3:48 PM CDT Max Robert M.D. LAB HISTORICAL ORDERS Performing Organization Address City/State/ZIP Code Phon e Number POWERCHART Pathology STRENGTH AND CONDITIONING COACH Cytology (04/04/2012 12:00 AM CDT) Specimen (Source) Anatomical Location Collection Method / Collectio n Time Received Time / Laterality Volume 04/04/2012 Narrative [facility] - 04/12/2012 10:24 AM CDT [facility], [address] [id number] ? Patient Name: PREET TURK Patient ID #: [id number] Collected: 04/04/2012 Address: [facility]/State/Zip: [address] [place] [id number] Received: Reported: 04/05/2012 04/12/2012 Soc. Sec. #: ?/Age/Sex 1985 (Age: 27) ??F Physician(s): OG ROBERT MD Copy To: ? [facility] ?? [id number] [address] [facility], ??[place] ??[address] CYTOPATHOLOGY STRENGTH AND CONDITIONING COACH REPORT FINAL CYTOLOGIC DIAGNOSIS Pap Smear - ThinPrep: NEGATIVE FOR INTRAEPITHELIAL LESION OR MALIGNANCY REACTIVE/REPARATIVE CHANGES. ENDOCERVICAL CELLS/COMPONENT PRESENT. SATISFACTORY SPECIMEN FOR EVALUATION. ??This specimen required a physician interpretation under CLIA 1987 ?? Electronically Signed Out By ddbeth/04/12/2012 BLAYNE DAWSON M.D. AM [facility] CT(ASCP) The Pap test is a screening procedure an d, as such, is subject to both false positive and false negative results as evidenced by published data. ??It is not a diagnostic test and results should be inter preted in the context of the patient's h istory and other clinical findings. ??Obtaining per iodic Pap tests may help to minimize the consequences of any false negatives that may occur. SPECIMEN(S) RECEIVED: Pap Smear - ThinPrep CLINICAL HISTORY: Date of Last Menstrual Period: 01-28-12 Menstrual History: Other Clinical Conditions: HPV TYPING REQUESTED: IF ASCUS Max Robert M.D. LAB PAP COPATH ORDERABLES Performing Organization Address City/State/ZIP Code Phon e Number [facility] documented in this encounter Visit Diagnoses Not on filedocumented in this encounter
--- OUTSIDE RECORDS SUMMARY | 2022-02-22 12:41 | XMS_ITS | Encounter Summary ---
:1985 Author Organization [facility] Address [address] [place] [address] Care Team Providers Name Role Phone Unavailable Primary Care Provider Unavailable Encounter Details Date Type Department Care Team Description 06/04/2012 Hospital Encounter HX [facility] Osman M.D. [address] [place], [place] [phone] (Wo rk) Social History Tobacco Use Types [...] at Date Recorded Female 06/09/2021 2:09 PM AIR TRAFFIC CONTROL SPECIALIST documented as of this encounter Last Filed Vital Signs Vital Sign Reading Time Taken Comments Blood Pressure 118/52 06/04/2012 2:20 PM AIR TRAFFIC CONTROL SPECIALIST Pulse - - Temperature - - Respiratory Rate - - Oxygen Saturation - - Inhaled Oxygen Concentration - - Weight 55.8 kg (123 lb 0.3 oz) 06/04/2012 2:20 PM AIR TRAFFIC CONTROL SPECIALIST Height - - Body Mass Index 20.57 04/03/2012 4:12 PM CDT documented in this encounter Progress Notes Max Robert M.D. - 06/04/2012 2:10 PM CST [id number] CHIEF COMPLAINT / REASON FOR VISIT Obstetrical followup. HISTORY OF PRESENT ILLNESS She is a 27-year-old 1, para 0 at 18-2/7 weeks' gestation. No concerns. Baby has been active. No contractions, bleeding or leaking. Please see dictated survey report. VITAL SIGNS BLOOD PRESSURE: 118/52 WEIGHT: 55.8; up 2 kg for the gestation thus far. IMPRESSION / REPORT / PLAN Stable at 18 weeks for survey today. We did discuss the limitations of ultrasound for detection of aneuploidy, as well as congenital heart defects and the patient did seem to understand. We will recheck with her in 1 month and have her call in the interval with concerns. Max Robert M.D./bobby cc: Labor and Delivery Electronically Signed By: MAX RBOERT MD On: 06/08/2012 08:02 AM Source: [facility] MHSDOLBEYNONRADSYS Document Id: [id number] TRAFFIC CONTROL SPECIALIST documented in this encounter Miscellaneous Notes Miscellaneous - Max Robert M.D. - 06/04/2012 3:34 PM CST Ambulatory Patient Summary [address] [id number] Visit Information Name: PREET TURK [facility] Number: [phone] Current Date: 06/04/2012 15:34:25 Physicians Attending Provider: MAX ROBERT MD Primary Care Provider: PCP, ELSEWHERE Your Medications Here is a list of your medications. It is important to take your medications as directed. Use a pillbox or chart to help remind you to take your medications. Please let your doctor or nurse know if you have problems taking your medications. Medication/Strength Dose Route Frequency Indications/Special Instructions/Comments *ondansetron (Zofran ODT 4 mg oral tablet, [...] Upcoming Appointments Date Time Location Reason Provider 07/02/2012 13:45 [facility] DENTAL ASSISTING INSTRUCTOR ob check Max Robert MD Your Goals/Additional instructions: Source: [facility] POWERCHART Document Id: [id number] TRAFFIC CONTROL SPECIALIST Miscellaneous - Max Robetr M.D. - 06/04/2012 3:34 PM CST Ambulatory Depart Summary [facility] [address] [place] [address] Visit Information Name: PREET TURK [facility] Number: [phone] Visit Date: 06/04/2012 15:34:25 Attending Provider: MAX ROBERT MD Primary Care Provider: PCP, TIERRA PREET TURK has been given the following list of medications: Your Medications It is important to take your medications as directed. Use a pill box or chart to help remind you to take your medications. Please let your doctor or nurse know if you have problems taking your medications. Medication/Strength Dose Route Frequency Indications/Special Instructions/Comments *ondansetron (Zofran ODT 4 mg oral tablet, [...] your provider for clarification. Additional Information: Source: [facility] POWERCHART Document Id: [id number] TRAFFIC CONTROL SPECIALIST Miscellaneous - Gayathri Gutierrez, L.P.N. - 06/04/2012 2:20 PM CST Adult Brush Machine Setter Intake/History Adult Brush Machine Setter Intake/History Entered On: 06/04/2012 14:21 AIR TRAFFIC CONTROL SPECIALIST Performed On: 06/04/2012 14:20 AIR TRAFFIC CONTROL SPECIALIST by GAYATHRI GUTIERREZ Intake Chief Complaint : Ob check - see ACOG Ambulatory Intake Additional Information : 18 2/7 weeks gestation Systolic Blood Pressure : 118mmHg Diastolic Blood Pressure : 52mmHg NIBP Mean : 74mmHg BP Location : Left upper extremity Blood Pressure Cuff Size : Regular Actual Weight : 55.8kg(Converted to: 123lb 0oz) Dosing Weight Clinic : 55.80kg GAYATHRI GUTIERREZ - 06/04/2012 14:20 AIR TRAFFIC CONTROL SPECIALIST Subjective Pain Symptoms : No BRENDAGAYATHRI MCKAY Radha - 06/04/2012 14:20 AIR TRAFFIC CONTROL SPECIALIST Dependent Habits Tobacco Use/Currently Using : Yes Exposure to Tobacco Smoke : Patient smokes Smoking Status : Current every day smoker MOMO GUTIERREZIE M - 06/04/2012 14:20 AIR TRAFFIC CONTROL SPECIALIST Tobacco Use Grid Type : Cigarettes Cigarette Use Packs/Day : 0.2 BRENDAGAYATHRI LEACH - 06/04/2012 14:20 AIR TRAFFIC CONTROL SPECIALIST Caffeine Use Grid Caffeine Use : Current Type : Coffee, Soft drinks Frequency : Daily Amount : 5 POTS BRENDA GAYATHRI M - 06/04/2012 14:20 AIR TRAFFIC CONTROL SPECIALIST Recreational Drug Use Grid Drug Use : None BRENDAGAYATHRI LEACH - 06/04/2012 14:20 AIR TRAFFIC CONTROL SPECIALIST Allergy Allergies (Active) Vicodin Estimated Onset Date: Unspecified ; Reactions: Hives, Breathing ; Created By: GARRETT JARRELL; Reaction Status: Active ; Category: Drug ; Substance: Vicodin ; Type: Allergy ; Severity: Severe ; Updated By: GARRETT JARRELL; Reviewed Date: 06/04/2012 14:19 AIR TRAFFIC CONTROL SPECIALIST Source: [facility] POWERCHART Document Id: [id number] TRAFFIC CONTROL SPECIALIST documented in this encounter Plan of Treatment Not on filedocumented as of this encounter Visit Diagnoses Not on filedocumented in this encounter
--- OUTSIDE RECORDS SUMMARY | 2022-02-22 12:41 | XMS_ITS | Encounter Summary ---
:1985 Author Organization [facility] Address [address] [place] [address] Care Team Providers Name Role Phone Unavailable Primary Care Provider Unavailable Encounter Details Date Type Department Care Team Description 04/03/2012 Hospital Encounter HX [facility] Osman M.D. 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 - 04/03/2012 4:51 PM CDT NOB education/intake appt Individual consult for NOB intake and education. Please refer to ACOG form. Subjective:H/O seizures with meds. States last seizure was 3 months ago. Denies questions or concerns. Objective: G__1__; P__0__; LMP:_01/28/12___; EDC:__11/03/12__; Height:164.7cm____; Pregravid Wt:_53.1kg___; BMI:_19.6___; Suggested Wt gain:_28-40#___ Lead Screen:remodel older home-level ordered Teaching Method: __x__Verbal discussion; ___x_Printed materials; ____Demonstration Readiness to Learn: _x___Accepting; ____Low interest; ____Refuse; ____Unable to learn at this time (barriers) Stages of Behavior Change: ____Pre-comtemplation; ____Contemplation; ____Preparation; __x__Action; ____Maintenance Outcomes and Reinforcement: ___x__Verbalizes understanding; ____Needs Reinforcement Plan: _x__Instructed/reviewed: weight gain recommendation/nutrient needs in /exercise/food safety issues//caffeine/fish ___Public Health Referral; ___xWIC ___Dietitian Referral d/t __x_Follow-up with MD at scheduled appt., earlier if needed __x_[facility] Recommendations signed and witnessed Recommendations: Encouraged to call with questions or concerns. Materials Provided: __x_Beginnings: , and Beyond-[facility] __[facility] Folder _x__Maternal Serum Screening-Guild x__Cystic Fibrosis Carrier Testing-Guild __x_First Trimester Screening for Down Syndrome-Guild __xNeonatal Med Sheet _x_Listeriosis and -[place] _x_A Family Guide to Eating Fish-[facility] Electronically Signed By: DANILO ACUNA On: 04/03/2012 04:53 PM Source: [place] Document Id: [id number] documented in this encounter Miscellaneous Notes Miscellaneous - Danilo Acuna R.N. - 04/03/2012 4:12 PM CDT Adult Arabic Linguist Intake/History Adult Arabic Linguist Intake/History Entered On: 04/03/2012 16:22 CDT Performed On: 04/03/2012 16:12 CDT by DANILO ACUNA Intake Chief Complaint : nob education/intake appt LMP:01/28/12 EDC:11/03/12 Height : 164.7cm(Converted to: 5ft 5inch(es), 64.84inch(es)) Actual Weight : 53.1kg(Converted to: 117lb 1oz) Dosing Weight Clinic : 53.10kg Clinic BSA : 1.56 Body Mass Index : 19.58kg/m2 DANILO ACUNA - 04/03/2012 16:12 CDT Subjective Pain Symptoms : No DANILO ACUNA - 04/03/2012 16:12 CDT Dependent Habits Tobacco Use/Currently Using : Yes Tobacco Use/Advised to Quit : Yes Exposure to Tobacco Smoke : Patient smokes Smoking Status : Current every day smoker DANILO ACUNA - 04/03/2012 16:12 CDT Tobacco Use Grid Type : Cigarettes Cigarette Use Packs/Day : 0.2 DANILO ACUNA - 04/03/2012 16:12 CDT Caffeine Use Grid Caffeine Use : Current Type : Coffee, Soft drinks Frequency : Daily Amount : 5 POTS DANILO ACUNA - 04/03/2012 16:12 CDT Recreational Drug Use Grid Drug Use : None DANILO ACUNA - 04/03/2012 16:12 CDT Allergy Allergies (Active) Vicodin Estimated Onset Date: Unspecified ; Reactions: Hives, Breathing ; Created By: GARRETT JARRELL; Reaction Status: Active ; Category: Drug ; Substance: Vicodin ; Type: Allergy ; Severity: Severe ; Updated By: GARRETT JARRELL; Reviewed Date: 03/28/2012 16:34 CDT Source: [place] Document Id: [id number] documented in this encounter Plan of Treatment Not on filedocumented as of this encounter Procedures Procedure Name Priority Date/Time Associated Comments Diagnosis URINALYSIS, ROUTINE Routine 04/03/2012 5:19 PM Re sults for this CDT procedure are i n the results section. URINE MICROSCOPIC Routine 04/03/2012 5:19 PM Resu lts for this CDT procedure are i n the results section. BACTERIAL CULTURE, Routine 04/03/2012 5:19 PM Res ults for this AEROBIC, URINE CDT procedure are in the results section. HXZZORDERS Routine 04/03/2012 5:05 PM Results f or this CDT procedure are i n the results section. ABO GROUPING, B Routine 04/03/2012 5:05 PM Result s for this CDT procedure are i n the results section. PROFILE II Routine 04/03/2012 5:05 PM Re sults for this WITHOUT CBC, B/SERUM CDT procedu re are in the results section. AUTOMATED Routine 04/03/2012 5:05 PM Results f or this DIFFERENTIAL, B CDT procedure ar e in the results section. CBC WITH Routine 04/03/2012 5:05 PM Results f or this DIFFERENTIAL, B CDT procedure ar e in the results section. ANTIBODY SCREEN, B Routine 04/03/2012 5:05 PM Res ults for this CDT procedure are i n the results section. LEAD, B Routine 04/03/2012 5:05 PM Results f or this CDT procedure are i n the results section. documented in this encounter Results (ABNORMAL) Urine Microscopic (04/03/2012 5:19 PM CDT) [facility] Method Time Signature HXUr WBC 10-25 (A) 0 - 2 POWERCHART Red Blood Cell 0-3 0 - 3 POWERCHART Clump, Urine HXUr Epithelial Many 0 - 5 POWERCHART HXUr Bacteria Negative POWERCHART Crystals None Seen None Seen POWERCHART HX Ur Casts None Seen None Seen POWERCHART HX MUCOUS Small POWERCHART THREADS Specimen Anatomical Collection Method Collection Time Receive d Time (Source) Location / / Volume Laterality Urine 04/03/2012 5:19 PM 2 5:19 CDT PM CDT Ramesh Robert M.D. LAB URINE ORDERABLES Performing Organization Address City/[facility]/ZIP Code Phon e Number POWERCHART (ABNORMAL) Urinalysis, Routine (04/03/2012 5:19 PM CDT) [facility] Method Time Signature Source Clean Void POWERCHART Urine HXUr Color STRAW POWERCHART Glucose Negative Negative POWERCHART HXBILIRUBIN Negative Negative POWERCHART Ketones, QL(U) Negative Negative POWERCHART Specific >=1.030 >=1.030 POWERCHART [place], POCT, U pH, POCT, Urine 6.0 8.5 POWERCHART Protein, Ur, Dip Negative Negative POWERCHART Urobilinogen 0.2 1.0 POWERCHART HXNITRITE Negative Negative POWERCHART HXBLOOD Trace (A) Negative POWERCHART Leukocyte Negative Negative POWERCHART Esterase Specimen (Source) Anatomical Collection Method Collection Time Re ceived Time Location / / Volume Laterality Urine 04/03/2012 5:19 PM CDT Ramesh Robert M.D. LAB URINE ORDERABLES Performing Organization Address City/State/ZIP Code Phon e Number POWERCHART (ABNORMAL) Bacterial Culture, Aerobic, Urine (04/03/2012 5:19 PM CDT) [facility] Bacterial (POSITIVE POWERCHART Culture, ) Aerobic, Urine Comment: Streptococcus agalactiae (Group B Strep) isolates that are Sensitive to Erythromycin should be treated as Resist ant, and Erythromycin should NOT be used as a drug of choice for treatment per bioMer[employer] ux Technical Bulletin. HXPre GPC POWERCHART Comment: <10,000 cfu/mL Gram Positive Cocci No further work-up. HXFinal GPC POWERCHART Comment: 10,000 - 50,000 cfu/mL Gram Positive Curt ci Mixed dung (multiple species present) Streptococcus Group B screen negative No further work-up. Specimen (Source) Anatomical Collection Method Collection Time Re ceived Time Location / / Volume Laterality Urine, Clean 04/03/2012 5:19 PM Catch CDT Comment: P Ramesh Robert M.D. LAB MICROBIOLOGY - GENERAL O RDERABLES Performing Organization Address City/[facility] Phon e Number POWERCHART Antibody Screen (04/03/2012 5:05 PM CDT) athologist Signature Antibody Negative POWERCHART Screen Comment: Test Performed by: [address] [address] Lab oratory Director: Xavi Do III, M.D. Specimen (Source) Anatomical Collection Method Collection Time Re ceived Time Location / / Volume Laterality 04/03/2012 5:05 PM CDT Ramesh Robert M.D. LAB BLOOD BANK TEST ORDERABL ES Performing Organization Address [facility] Phon e Number POWERCHART Grouping and Rh-Moy FLIP, see #[id number] (04/03/2012 5:05 PM CDT) [facility] gist Method Time Signature HX Grouping B Positive POWERCHART and Rh Specimen (Source) Anatomical Collection Method Collection Time Re ceived Time Location / / Volume Laterality 04/03/2012 5:05 PM CDT Ramesh Robert M.D. LAB BLOOD BANK TEST ORDERABL ES Performing Organization Address [facility] [[email or web address]] Code Phon e Number POWERCHART (ABNORMAL) Automated Differential (04/03/2012 5:05 PM CDT) Patholo gist Method Time Signature Neutro % 60.6 44.0 - POWERCHART 69.0 Lymphocytes % 29.9 18.0 - POWERCHART 44.1 HX [place] % 8.6 5.0 - 11.7 POWERCHART HX Eos % 0.6 (L) 0.8 - 3.1 POWERCHART HX Baso % 0.3 0.2 - 1.4 POWERCHART Absolute 6.03 1.70 - POWERCHART Neutrophils 7.00 109L Lymphocytes 2.98 (H) 0.90 - POWERCHART 2.90 X109L Monocytes 0.86 0.30 - POWERCHART 0.90 X109L Eosinophils 0.06 0.05 - POWERCHART 0.50 X109L Absolute 0.03 0.00 - POWERCHART Basophil 0.30 X109L Specimen Anatomical Collection Method Collection Time Receive d Time (Source) Location / / Volume Laterality Blood 04/03/2012 5:05 PM 2 5:05 CDT PM CDT Ramesh Robert M.D. LAB BLOOD ADD-ON Performing Organization Address City/State/ZIP Code Phon e Number POWERCHART CBC with Differential (04/03/2012 5:05 PM CDT) athologist Signature Leukocytes 10.0 3.4 - 10.5 POWERCHART X109L Erythrocytes 4.52 3.90 - 5.03 POWERCHART [id number] Hemoglobin 13.2 12.0 - 15.5 POWERCHART GDL Hematocrit 39.5 34.9 - 44.5 POWERCHART MCV 87.4 82.0 - 98.0 POWERCHART FL HX RDW 13.0 11.9 - 15.5 POWERCHART Platelet Count 302 150 - 450 POWERCHART X109L Specimen (Source) Anatomical Collection Method Collection Time Re ceived Time Location / / Volume Laterality Blood 04/03/2012 5:05 PM CDT Ramesh Robert M.D. LAB BLOOD ADD-ON Performing Organization Address City/State/ZIP Code Phon e Number POWERCHART Lead (04/03/2012 5:05 PM CDT) athologist Signature Lead, B <2 <=9 UGDL POWERCHART Specimen (Source) Anatomical Collection Method Collection Time Re ceived Time Location / / Volume Laterality Blood 04/03/2012 5:05 PM CDT Ramesh Robert M.D. LAB BLOOD NON ADD-ON Performing Organization Address City/State/ZIP Code Phon e Number POWERCHART Profile II without CBC/Serum (04/03/2012 5:05 PM CDT) athologist Signature HBs Antigen, S Negative Negative POWERCHART Comment: Test Performed by: [facility] [place] [address] Certified Athletic Trainer: Xavi quevedo III, M.D. Syphilis IgG Ab, S Negative Negative POWERCHART Comment: Test Performed by: [facility] [place] [address] Certified Athletic Trainer: Xavi quevedo III, M.D. HX Rubella IgG-Guild Positive POWERCHART Comment: -- REFERENCE VALUE -- Negative Test Performed by: [facility] [place] [address] Certified Athletic Trainer: Xavi quevedo III, M.D. Specimen (Source) Anatomical Collection Method Collection Time Re ceived Time Location / / Volume Laterality Blood 04/03/2012 5:05 PM CDT Ramesh Robert M.D. LAB BLOOD NON ADD-ON Performing Organization Address City/[facility] [[email or web address]] Code Phon e Number POWERCHART HXZZORDERS (04/03/2012 5:05 PM CDT) P athologist Signature HIV-1/-2 Negative Negative POWERCHART Antibody Comment: If this test is ordered as a follow-up t est to a reactive rapid HIV antibody test result, suppleme ntal testing by Western blot is recommended, even when t his test result is negative. Test Performed by: [facility] [place] [address] Certified Athletic Trainer: Xavi quevedo III, M.D. Specimen (Source) Anatomical Collection Method Collection Time Re ceived Time Location / / Volume Laterality Blood 04/03/2012 5:05 PM CDT Ramesh Robert M.D. LAB HISTORICAL ORDERS Performing Organization Address City/State/ZIP Code Phon e Number POWERCHART documented in this encounter Visit Diagnoses Not on filedocumented in this encounter
--- OUTSIDE RECORDS SUMMARY | 2022-02-22 12:41 | XMS_ITS | Encounter Summary ---
:1985 Author Organization [facility] Address [address] [place] [address] Care Team Providers Name Role Phone Unavailable Primary Care Provider Unavailable Encounter Details Date Type Department Care Team Description 05/07/2012 Hospital Encounter HX [facility] Osman M.D. 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 - 05/07/2012 1:33 PM CDT [id number] CHIEF COMPLAINT / REASON FOR VISIT Obstetrical followup HISTORY OF PRESENT ILLNESS She is a 27-year-old 1, para 0 at 13-6/7 weeks' gestation, currently doing well. Her nausea has improved. Denies bleeding or cramping. She is feeling movement according to the patient. PHYSICAL EXAM On exam, she appears well. Abdomen is gravid and nontender. Heart tones are in the 140s with the use of Doppler. Size is consistent with dates. VITAL SIGNS BLOOD PRESSURE: 120/60 WEIGHT: 53.7 kg, up 6/10 of a kg in the last month IMPRESSION / REPORT / PLAN Stable at 13 weeks. Patient does relate that she has had some dysuria. We will check a urinalysis today and a urine GC at her request. We will inform her of those results when they are available. We will have her seen for survey in 1 month, and she wishes a quad screen to be done at that time. Have her call in the interval with concerns. Max Robert M.D./mark cc: Labor and Delivery Electronically Signed By: MAX ROBERT MD On: 05/08/2012 12:06 PM Source: [facility] MHSDOLBEYNONRADSYS Document Id: [id number] documented in this encounter Miscellaneous Notes Miscellaneous - Max Robert M.D. - 05/08/2012 4:24 PM CDT Results Notification Document Contains Addenda Addendum by IRIS BROWN on 17 May 2012 13:55:17 CDT results on acog From: MAX ROBERT MD To: IRIS BROWN Sent: 05/08/2012 16:24:32 CDT ! Show up: 05/08/2012 21:24:32 [facility] Subject: Results Notification Actions: Notify patient-refer to General Message Source: [facility] POWERCHART Document Id: [id number] Electronically signed by [facility] Job Training Specialist [id number] at 12/17/2016 10:58 PM CDT Miscellaneous - Iris Brown, L.P.N. - 05/07/2012 1:36 PM CDT Adult Health Information Technician Intake/History Adult Health Information Technician Intake/History Entered On: 05/07/2012 13:38 CDT Performed On: 05/07/2012 13:36 CDT by IRIS BROWN Intake Chief Complaint : 13 6/7 wk ob check Systolic Blood Pressure : 120mmHg Diastolic Blood Pressure : 60mmHg NIBP Mean : 80mmHg BP Location : Left upper extremity Blood Pressure Cuff Size : Regular Actual Weight : 53.7kg(Converted to: 118lb 6oz) Dosing Weight Clinic : 53.70kg IRIS BROWN - 05/07/2012 13:36 CDT Subjective Pain Symptoms : No IRIS BROWN - 05/07/2012 13:36 CDT Dependent Habits Tobacco Use/Currently Using : Yes Exposure to Tobacco Smoke : Patient smokes Smoking Status : Current every day smoker IRIS BROWN - 05/07/2012 13:36 CDT Tobacco Use Grid Type : Cigarettes Cigarette Use Packs/Day : 0.2 IRIS BROWN - 05/07/2012 13:36 CDT Caffeine Use Grid Caffeine Use : Current Type : Coffee, Soft drinks Frequency : Daily Amount : 5 POTS IRIS BROWN - 05/07/2012 13:36 CDT Recreational Drug Use Grid Drug Use : None IRIS BROWN - 05/07/2012 13:36 CDT Allergy Allergies (Active) Vicodin Estimated Onset Date: Unspecified ; Reactions: Hives, Breathing ; Created By: GARRETT JARRELL; Reaction Status: Active ; Category: Drug ; Substance: Vicodin ; Type: Allergy ; Severity: Severe ; Updated By: GARRETT JARRELL; Reviewed Date: 05/07/2012 13:35 CDT [facility]ISION[facility] Ophthalmic PharmaCHART Document Id: [id number] documented in this encounter Plan of Treatment Not on filedocumented as of this encounter Procedures Procedure Name Priority Date/Time Associated Comments Diagnosis N GONOR AMP SRC Routine 05/07/2012 2:11 PM Result s for this CDT procedure are i n the results section. N GONOR AMP DNA Routine 05/07/2012 2:11 PM Result s for this CDT procedure are i n the results section. C TRACH AMP SRC Routine 05/07/2012 2:11 PM Result s for this CDT procedure are i n the results section. C TRACH AMP RNA Routine 05/07/2012 2:11 PM Result s for this CDT procedure are i n the results section. URINALYSIS WITH Routine 05/07/2012 2:11 PM Result s for this MICROSCOPIC CDT procedure are i n the results section. BACTERIAL CULTURE, Routine 05/07/2012 2:11 PM Res ults for this AEROBIC, URINE CDT procedure are in the results section. documented in this encounter Results HX-N gonor Amp DNA (05/07/2012 2:11 PM CDT) athologist Signature HXN gonor Amp Negative POWERCHART DNA-[place] Specimen (Source) Anatomical Collection Method Collection Time Re ceived Time Location / / Volume Laterality 05/07/2012 2:11 PM CDT Narrative POWERCHART - 05/08/2012 4:09 PM CDT Test Performed by: [facility] [employer] [address] [address] Bilingual Sales Assistant: Xavi quevedo III, M.D. Max Robert M.D. LAB HISTORICAL ORDERS Performing Organization Address City/State/ZIP Code Phon e Number POWERCHART HX-N gonor Amp Src (05/07/2012 2:11 PM CDT) athologist Signature HXN gonor Amp urine [facility] Spec[facility] (Source) Anatomical Collection Method Collection Time Re ceived Time Location / / Volume Laterality 05/07/2012 2:11 PM CDT Max Robert M.D. LAB HISTORICAL ORDERS Performing Organization Address City/State/ZIP Code Phon e Number POWERCHART HX-C trach Amp RNA (05/07/2012 2:11 PM CDT) [facility] Method Time Signature Chlamydia Negative POWERCHART trachomatis amplified RNA Specimen (Source) Anatomical Collection Method Collection Time Re ceived Time Location / / Volume Laterality 05/07/2012 2:11 PM CDT Max Robert M.D. LAB HISTORICAL ORDERS Performing Organization Address City/State/ZIP Code Phon e Number POWERCHART HX-C trach Amp Src (05/07/2012 2:11 PM CDT) athologist Signature HXC trach Amp urine POWERCHART [facility] Specimen (Source) Anatomical Collection Method Collection Time Re ceived Time Location / / Volume Laterality 05/07/2012 2:11 PM CDT Max Robert M.D. LAB HISTORICAL ORDERS Performing Organization Address City/State/ZIP Code Phon e Number POWERCHART (ABNORMAL) Urinalysis, Complete, Includes Microscopic (05/07/2012 2:11 PM CDT) [facility] Method Time Signature Source Clean Void POWERCHART Urine HXUr Color STRAW POWERCHART Glucose Negative Negative POWERCHART HXBILIRUBIN Negative Negative POWERCHART Ketones, QL(U) Negative Negative POWERCHART Specific >=1.030 >=1.030 POWERCHART [place], POCT, U pH, POCT, Urine 6.0 8.5 POWERCHART Protein, Ur, Dip Negative Negative POWERCHART Urobilinogen 0.2 1.0 POWERCHART HXNITRITE Negative Negative POWERCHART HXBLOOD Trace (A) Negative POWERCHART Leukocyte Small (A) Negative POWERCHART Esterase HXUr WBC 5-10 (A) 0 - 5 POWERCHART Red Blood Cell 0-3 0 - 3 POWERCHART Clump, Urine HXUr Bacteria Negative Negative POWERCHART HXUr Epithelial Few Negative POWERCHART HX MUCOUS Negative Negative POWERCHART THREADS HX Ur Casts None Seen None Seen POWERCHART Crystals None Seen None Seen POWERCHART Specimen (Source) Anatomical Collection Method Collection Time Re ceived Time Location / / Volume Laterality Urine 05/07/2012 2:11 PM CDT Max Robert M.D. LAB URINE ORDERABLES Performing Organization Address City/State/ZIP Code Phon e Number POWERCHART (ABNORMAL) Bacterial Culture, Aerobic, Urine (05/07/2012 2:11 PM CDT) Analysis Performed At [facility] Time Signature Bacterial (POSITIVE POWERCHART Culture, ) Aerobic, Urine Comment: Streptococcus agalactiae (Group B Strep) isolates that are Sensitive to Erythromycin should be treated as Resist ant, and Erythromycin should NOT be used as a drug of choice for treatment per [employer] ux Technical Bulletin. HXPre GPC POWERCHART Comment: <10,000 cfu/mL Gram Positive Cocci No further work-up. HXFinal GPC POWERCHART Comment: <10,000 cfu/mL Gram Positive Cocci Streptococcus Group B screen negative No further work-up. Specimen Anatomical Collection Method Collection Time Receive d Time (Source) Location / / Volume Laterality Urine 05/07/2012 2:11 PM 2 2:11 CDT PM CDT Max Robert M.D. LAB MICROBIOLOGY - GENERAL O RDERABLES Performing Organization Address City/State/ZIP Code Phon e Number POWERCHART documented in this encounter Visit Diagnoses Not on filedocumented in this encounter
--- OUTSIDE RECORDS SUMMARY | 2022-02-22 12:41 | XMS_ITS | Encounter Summary ---
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 documented in this encounter Results DX Chest AP or PA and Lateral 2 Views (04/12/2003 1:15 AM CDT) Anatomical Region Laterality Modality Chest N/A Radiographic Imaging Specimen (Source) Anatomical Collection Method Collection Time Re ceived Time Location / / Volume Laterality 04/12/2003 1:15 AM CDT Narrative 04/12/2003 7:36 AM CDT 12-Apr-2003 01:15:00 ??Exam: Chest-- 2 Views Indications: sob, r/o PTX ORIGINAL REPORT - 12-Apr-2003 01:45:00 Negative chest. ??Specifically, no pneum othorax. ??Several round densities on the skin of the chest and upper abdomen anteriorly. Electronically signed by: ?? Nupur Cerna MD [phone] 12-Apr-2003 01:45 I have reviewed the films/images and agr ee with the above interpretation. Electronically signed by: ?? Pablo Hughes MD. ??[phone] 12-Apr-2003 07: 36 Procedure Note Ronny Hughes M.D. - 10/19/2017Format ting of this note might be different from the original. 12-Apr-2003 01:15:00 Exam: Chest-- 2 Vie ws Indications: sob, r/o PTX ORIGINAL REPORT - 12-Apr-2003 01:45:00 Negative chest. Specifically, no pneumot horax. Several round densities on the skin of the chest and upper abdomen anteriorly. Electronically signed by: Nupur Cerna MD [phone] 12-Apr-2003 01:45 I have reviewed the films/images and agr ee with the above interpretation. Electronically signed by: Pablo Hughes MD. [phone] 12-Apr-2003 07:36 Milo [facility]OWL[facility] DIAGNOSTIC IMAGING PROCE DURLOIS documented in this encounter Visit Diagnoses Not on filedocumented in this encounter
--- OUTSIDE RECORDS SUMMARY | 2022-02-22 12:41 | XMS_ITS | Encounter Summary ---
:1985 Author Organization [facility] Address [address] [place] [address] Care Team Providers Name Role Phone Unavailable Primary Care Provider Unavailable Encounter Details Date Type Department Care Team Description 08/14/2012 Hospital Encounter HX [facility] Chidi Douglas M.D. Social History Tobacco [...] 1 to 4 times per year 05/18 restoration services? Do you belong to any clubs [...] at Date Recorded Female 06/09/2021 2:09 PM GENERAL ACCOUNTANT documented as of this encounter Plan of Treatment Not on filedocumented as of this encounter Procedures Procedure Name Priority Date/Time Associated Diagnosis Comme nts US OB FOLLOW UP OR Routine 08/14/2012 10:58 AM Re sults for this REPEAT GENERAL ACCOUNTANT procedure are i n the results section. documented in this encounter Results US OB Follow Up or Repeat (08/14/2012 10:58 AM GENERAL ACCOUNTANT) Anatomical Region Laterality Modality Ultrasound Specimen (Source) Anatomical Collection Method Collection Time Re ceived Time Location / / Volume Laterality 08/14/2012 10:58 AM GENERAL ACCOUNTANT Addenda Addendum by Provider, Pippa Yeung 08/14/2012 10:58 AM GENERAL ACCOUNTANT RAD^^^OW US OB Follow Up or Repeat 08/14/2012 10:58:41 Impressions 08/14/2012 4:54 PM GENERAL ACCOUNTANT 1. Limited anatomy survey as above . 2. Estimated weight is consistent with the 28 percentile of growth, which is interpreted as appropri ate and normal interval growth. Narrative 08/14/2012 4:54 PM GENERAL ACCOUNTANT EXAM: US OB Follow Up or Repeat INDICATION: Growth COMPARISON: None. REFERRING PHYSICIAN: Dr. Ramesh Brantley EAR SPECIALIST: Ariane Haji RDMS. : 1 PARA: 0 LMP: 01/28/2012 HAJA by LMP: 11/03/2012 GESTATIONAL AGE: 28 weeks and the days. PLACENTAL LOCATION: Anterior UTERUS: Normal CERVICAL LENGTH: 3.2 cm cm. ADNEXA: Normal S/D Ratio: N/A POSITION: Vertex AMNIOTIC FLUID INDEX: 17.1 cm cm. STOMACH: Normal KIDNEYS: Normal BLADDER: Normal HEART: Normal HEART RATE: 134 beats per minute. BIOMETRY GA(BPD): 7.24 cm consistent with 29 week s GA(HC): 26.4 cm consistent with 28 weeks 4 days GA(AC): 23.3 cm consistent with 27 weeks 4 days GA(FL): 4.82 cm consistent with 26 weeks 1 day GA(HL): 4.54 cm consistent with 26 weeks 6 days Multiple measurements of the biparietal diameter, head circumference, abdominal circumference, and femur lengt h reveal an estimated weight of 1057 grams. This can be roughl y equated to an ultrasound calculation of HAJA of 11/08/2012. Procedure Note Chidi Spears M.D. / Provider, Harry will M.D. - 12/02/2016 EXAM: US OB Follow Up or Repeat INDICATION: Growth COMPARISON: None. REFERRING PHYSICIAN: Dr. Ramesh Brantley EAR SPECIALIST: Ariane Haji RDMS. : 1 PARA: 0 LMP: 01/28/2012 HAJA by LMP: 11/03/2012 GESTATIONAL AGE: 28 weeks and the days. PLACENTAL LOCATION: Anterior UTERUS: Normal CERVICAL LENGTH: 3.2 cm cm. ADNEXA: Normal S/D Ratio: N/A POSITION: Vertex AMNIOTIC FLUID INDEX: 17.1 cm cm. STOMACH: Normal KIDNEYS: Normal BLADDER: Normal HEART: Normal HEART RATE: 134 beats per minute. BIOMETRY GA(BPD): 7.24 cm consistent with 29 week s GA(HC): 26.4 cm consistent with 28 weeks 4 days GA(AC): 23.3 cm consistent with 27 weeks 4 days GA(FL): 4.82 cm consistent with 26 weeks 1 day GA(HL): 4.54 cm consistent with 26 weeks 6 days Multiple measurements of the biparietal diameter, head circumference, abdominal circumference, and femur lengt h reveal an estimated weight of 1057 grams. This can be roughl y equated to an ultrasound calculation of HAJA of 11/08/2012. IMPRESSION: 1. Limited anatomy survey as above . 2. Estimated weight is consistent with the 28 percentile of growth, which is interpreted as appropri ate and normal interval growth. Ariane Oreilly R.V.T., NadyaSFlex IMG OB US PROCEDUR ES documented in this encounter Visit Diagnoses Not on filedocumented in this encounter
--- OUTSIDE RECORDS SUMMARY | 2022-02-22 12:41 | XMS_ITS | Encounter Summary ---
:1985 Author Organization [facility] Address [address] [place] [address] Care Team Providers Name Role Phone Unavailable Primary Care Provider Unavailable Encounter Details Date Type Department Care Team Description 07/18/2006 - Hospital Encounter HX NO MAPPING Dennis Bazzi, 01/24/2009 Pippa Social History Tobacco Use Types Packs/Day Years [...] Date Recorded Female 06/09/2021 2:09 PM SUPERVISOR MOLD YARD documented as of this encounter Plan of Treatment Not on filedocumented as of this encounter Visit Diagnoses Not on filedocumented in this encounter
--- OUTSIDE RECORDS SUMMARY | 2022-02-22 12:41 | XMS_ITS | Encounter Summary ---
:1985 Author Organization [facility] Address [address] [place] [address] Care Team Providers Name Role Phone Unavailable Primary Care Provider Unavailable Encounter Details Date Type Department Care Team Description 08/14/2012 Hospital Encounter HX [facility] Osman M.D. [address] [place], [place] [id number] (Wo rk) Social History Tobacco Use Types [...] at Date Recorded Female 06/09/2021 2:09 PM ENTRY LEVEL ASSISTANT MANAGER documented as of this encounter Last Filed Vital Signs Vital Sign Reading Time Taken Comments Blood Pressure 118/66 08/14/2012 9:54 AM ENTRY LEVEL ASSISTANT MANAGER Pulse - - Temperature - - Respiratory Rate - - Oxygen Saturation - - Inhaled Oxygen Concentration - - Weight 58.6 kg (129 lb 3 oz) 08/14/2012 9:54 AM ENTRY LEVEL ASSISTANT MANAGER Height - - Body Mass Index 21.6 04/03/2012 4:12 PM CDT documented in this encounter Progress Notes Max Robert M.D. - 08/14/2012 9:48 AM CST [id number] CHIEF COMPLAINT / REASON FOR VISIT Obstetrical followup HISTORY OF PRESENT ILLNESS She is a 27-year-old 1 para 0 with past medical history of a seizure disorder. She has had aseizure in the last few weeks and she has noted some leakage of fluid per vagina recently. She states that she found out her partner had been unfaithful and is wishing a screen for sexually transmissible infection today. Baby has been active. She denies bleeding. PHYSICAL EXAM On exam fundal height is 28 cm. Baby is vertex by Moises's. Heart tones 140s. Cervix is visibly closed. There is a scant amount of white clumpy discharge present around the cervix and in the upper vagina. Otherwise normal. No leakage seen from the cervix with Valsalva. IMPRESSION / REPORT / PLAN Obstetrical care at 28 weeks. Will inform her of the GC screen when available. Will have her do a growth ultrasound today given the carbamazepine that she is on for her seizure disorder. We will do a carbamazepine level to determine if she is subtherapeutic and we may need to increase her dosageand will inform her of that result as well. Max Robert M.D./[facility] cc: Labor and Delivery Electronically Signed By: MAX ROBERT MD On: 08/16/2012 12:26 PM Source: [facility] [id number] Document Id: [id number] Y LEVEL ASSISTANT MANAGER documented in this encounter Miscellaneous Notes Miscellaneous - Max Robert M.D. - 08/16/2012 12:31 PM CST Results Notification Document Contains Addenda Addendum by YOSI REY on 16 August 2012 15:44:30 ENTRY LEVEL ASSISTANT MANAGER results sent to pt From: MAX ROBERT MD To: LORI Robert Nurse Sent: 08/16/2012 12:31:57 ENTRY LEVEL ASSISTANT MANAGER ! Show up: 08/16/2012 18:31:57 [facility] Subject: Results Notification Actions: Notify patient-refer to General Message Source: [facility] POWERCHART Document Id: [id number] Electronically signed by [facility] Data Entry Coordinator [id number] at 12/14/2016 8:55 PM CDT Miscellaneous - Max Robert M.D. - 08/14/2012 12:14 PM CST Ambulatory Patient Summary [facility] [address] [place] [id number] Visit Information Name: PREET TURK [facility] Number: [id number] Current Date: 08/14/2012 12:14:13 Physicians Attending Provider: MAX ROBERT MD Primary [...] Instructions/Comments carbamazepine (carbamazepine 200 mg oral tablet) See Instructions 1 tab(s) PO IN THE MORNING AND 2 TABS IN THE EVENING multivitamin, ( Multivitamins with FA 0.8 mg oral tablet) 1 tab(s) Oral once a day ondansetron (Zofran ODT 4 mg oral tablet, disintegrating) 4 mg Oral every 8 hours folic acid (folic acid 0.8 mg oral tablet) 0.8 mg Oral four times a day Attention: If you have [...] Upcoming Appointments Date Time Location Reason Provider 08/28/2012 10:30 [facility] INVESTMENT ASSOCIATE ob check Max Robert MD Your Goals/Additional instructions: Source: [facility] POWERCHART Document Id: [id number] Y LEVEL ASSISTANT MANAGER Miscellaneous - Max Robert M.D. - 08/14/2012 12:14 PM CST Ambulatory Depart Summary [address] [id number] Visit Information Name: SANDHYAARTUR BERGERANDRA [facility] Number: [id number] Visit Date: 08/14/2012 12:14:12 Attending Provider: MAX ROBERT MD Primary Care [...] Instructions/Comments carbamazepine (carbamazepine 200 mg oral tablet) See Instructions 1 tab(s) PO IN THE MORNING AND 2 TABS IN THE EVENING multivitamin, ( Multivitamins with FA 0.8 mg oral tablet) 1 tab(s) Oral once a day ondansetron (Zofran ODT 4 mg oral tablet, disintegrating) 4 mg Oral every 8 hours folic acid (folic acid 0.8 mg oral tablet) 0.8 mg Oral four times a day Attention: If you have any medications at home that are not on this list, DO NOT take them until youcontact your provider for clarification. Additional Information: Source: [facility] POWERCHART Document Id: [id number] Y LEVEL ASSISTANT MANAGER Radha - Max Robert M.D. - 08/14/2012 11:46 AM CST Results Notification Document Contains Addenda Addendum by YOSI REY on 15 August 2012 15:50:25 ENTRY LEVEL ASSISTANT MANAGER results sent to pt From: MAX ROBERT MD To: LORI Robert Nurse Sent: 08/14/2012 11:46:34 ENTRY LEVEL ASSISTANT MANAGER ! Show up: 08/14/2012 17:46:34 [facility] Subject: Results Notification Actions: Notify patient-refer to General Message Source: [facility] POWERCHART Document Id: [id number] Electronically signed by [facility] Data Entry Coordinator [id number] at 12/14/2016 8:55 PM CDT Radha - Bryan Mehta - 08/14/2012 9:54 AM CST Adult Pacs Specialist Intake/History Adult Pacs Specialist Intake/History Entered On: 08/14/2012 9:58 ENTRY LEVEL ASSISTANT MANAGER Performed On: 08/14/2012 9:54 ENTRY LEVEL ASSISTANT MANAGER by BRYAN MEHTA Intake Chief Complaint : ob ck-see acog-28 2/7 weeks Systolic Blood Pressure : 118mmHg Diastolic Blood Pressure : 66mmHg NIBP Mean : 83mmHg BP Location : Left upper extremity Blood Pressure Cuff Size : Regular Actual Weight : 58.6kg(Converted to: 129lb 3oz) Dosing Weight Clinic : 58.60kg BRYAN MEHTA - 08/14/2012 9:54 ENTRY LEVEL ASSISTANT MANAGER Subjective Pain Symptoms : No BRYAN MEHTA - 08/14/2012 9:54 ENTRY LEVEL ASSISTANT MANAGER Dependent Habits Tobacco Use/Currently Using : Yes Exposure to Tobacco Smoke : Patient smokes Smoking Status : Current some day smoker BRYAN MEHTA - 08/14/2012 9:54 ENTRY LEVEL ASSISTANT MANAGER Tobacco Use Grid Type : Cigarettes Cigarette Use Packs/Day : 0.2 BRYAN MEHTA - 08/14/2012 9:54 ENTRY LEVEL ASSISTANT MANAGER Caffeine Use Grid Caffeine Use : Current Type : Coffee, Soft drinks Frequency : Daily Amount : 5 POTS BRYAN MEHTA - 08/14/2012 9:54 ENTRY LEVEL ASSISTANT MANAGER Recreational Drug Use Grid Drug Use : None BRYAN MEHTA - 08/14/2012 9:54 ENTRY LEVEL ASSISTANT MANAGER Allergy Allergies (Active) Vicodin Estimated Onset Date: Unspecified ; Reactions: Hives, Breathing ; Created By: GARRETT JARRELL; Reaction Status: Active ; Category: Drug ; Substance: Vicodin ; Type: Allergy ; Severity: Severe ; Updated By: GARRETT JARRELL; Reviewed Date: 08/14/2012 9:54 ENTRY LEVEL ASSISTANT MANAGER Source: [facility] Light Up AfricaCHART Document Id: [id number] Y LEVEL ASSISTANT MANAGER documented in this encounter Plan of Treatment Not on filedocumented as of this encounter Procedures Procedure Name Priority Date/Time Associated Comments Diagnosis WET PREP EXAM, Routine 08/14/2012 10:37 AM Result s for this UROGENITAL ENTRY LEVEL ASSISTANT MANAGER procedure are i n the results section. N GONOR AMP SRC Routine 08/14/2012 10:31 AM Resul ts for this ENTRY LEVEL ASSISTANT MANAGER procedure are i n the results section. N GONOR AMP DNA Routine 08/14/2012 10:31 AM Resul ts for this ENTRY LEVEL ASSISTANT MANAGER procedure are i n the results section. C TRACH AMP SRC Routine 08/14/2012 10:31 AM Resul ts for this ENTRY LEVEL ASSISTANT MANAGER procedure are i n the results section. C TRACH AMP RNA Routine 08/14/2012 10:31 AM Resul ts for this ENTRY LEVEL ASSISTANT MANAGER procedure are i n the results section. documented in this encounter Results Wet Prep Exam, Urogenital (08/14/2012 10:37 AM ENTRY LEVEL ASSISTANT MANAGER) P athologist Signature HXWet Prep POWERCHART HXFinal No yeast, POWERCHART Trichomonas , clue cells, or sperm seen. Specimen (Source) Anatomical Collection Method Collection Time Re ceived Time Location / / Volume Laterality Vagina 08/14/2012 10:37 AM ENTRY LEVEL ASSISTANT MANAGER Max Robert M.D. LAB MICROBIOLOGY - GENERAL O RDERABLES Performing Organization Address City/State/ZIP Code Phon e Number POWERCHART HX-N gonor Amp DNA (08/14/2012 10:31 AM ENTRY LEVEL ASSISTANT MANAGER) athologist Signature HXN gonor Amp Negative POWERCHART DNA-[place] Specimen (Source) Anatomical Collection Method Collection Time Re ceived Time Location / / Volume Laterality 08/14/2012 10:31 AM ENTRY LEVEL ASSISTANT MANAGER Narrative POWERCHART - 08/15/2012 4:31 PM ENTRY LEVEL ASSISTANT MANAGER Test Performed by: [place] [address] Sound Ranging Crewmember: Xavi quevedo III, M.D. Max Robert M.D. LAB HISTORICAL ORDERS Performing Organization Address City/State/ZIP Code Phon e Number POWERCHART HX-N gonor Amp Src (08/14/2012 10:31 AM ENTRY LEVEL ASSISTANT MANAGER) athologist Signature HXN gonor Amp CERVIX POWERCHART Src-[place] Specimen (Source) Anatomical Collection Method Collection Time Re ceived Time Location / / Volume Laterality 08/14/2012 10:31 AM ENTRY LEVEL ASSISTANT MANAGER Max Robert M.D. LAB HISTORICAL ORDERS Performing Organization Address City/State/ZIP Code Phon e Number POWERCHART HX-C trach Amp RNA (08/14/2012 10:31 AM ENTRY LEVEL ASSISTANT MANAGER) [facility] Method Time Signature Chlamydia Negative POWERCHART trachomatis amplified RNA Specimen (Source) Anatomical Collection Method Collection Time Re ceived Time Location / / Volume Laterality 08/14/2012 10:31 AM ENTRY LEVEL ASSISTANT MANAGER Max Robert M.D. LAB HISTORICAL ORDERS Performing Organization Address City/State/ZIP Code Phon e Number POWERCHART HX-C trach Amp Src (08/14/2012 10:31 AM ENTRY LEVEL ASSISTANT MANAGER) athologist Signature HXC trach Amp CERVIX POWERCHART Src-[place] Specimen (Source) Anatomical Collection Method Collection Time Re ceived Time Location / / Volume Laterality 08/14/2012 10:31 AM ENTRY LEVEL ASSISTANT MANAGER Max Robert M.D. LAB HISTORICAL ORDERS Performing Organization Address City/State/ZIP Code Phon e Number POWERCHART documented in this encounter Visit Diagnoses Not on filedocumented in this encounter
--- OUTSIDE RECORDS SUMMARY | 2022-02-22 12:41 | XMS_ITS | Encounter Summary ---
:1985 Author Organization [facility] Address [address] [place] [address] Care Team Providers Name Role Phone Unavailable Primary Care Provider Unavailable Encounter Details Date Type Department Care Team Description 09/27/2012 Hospital Encounter HX [facility] Osman M.D. [address] [place], [place] [phone] (Wo rk) Social History Tobacco Use Types [...] at Date Recorded Female 06/09/2021 2:09 PM FRAMING MECHANIC documented as of this encounter Plan of Treatment Not on filedocumented as of this encounter Procedures Procedure Name Priority Date/Time Associated Diagnosis Comme nts US OB FOLLOW UP OR Routine 09/27/2012 9:52 AM Res ults for this REPEAT CDT procedure are i n the results section. documented in this encounter Results US OB Follow Up or Repeat (09/27/2012 9:52 AM CDT) Anatomical Region Laterality Modality Ultrasound Specimen (Source) Anatomical Collection Method Collection Time Re ceived Time Location / / Volume Laterality 09/27/2012 9:52 AM CDT Addenda Addendum by ProviderGamal M.D. o n 09/27/2012 9:52 AM CDT RAD^^^OW US OB Follow Up or Repeat 09/27/2012 09:52:00 Impressions 09/27/2012 11:50 AM CDT 1. Limited anatomy survey as above . 2. Estimated weight is consistent with the 26 percentile, which is interpreted as appropriate interval g rowth. Narrative 09/27/2012 11:50 AM CDT EXAM: US OB Follow Up or Repeat INDICATION: Growth COMPARISON: 08/14/2012 REFERRING PHYSICIAN: Jakob SCHOOL INSPECTOR: Carmen Oreilly RDMS. : 1 PARA: 0 LMP: 01/28/2012 HAJA by LMP: 11/03/2012 GESTATIONAL AGE: 34 weeks and 5 days. PLACENTAL LOCATION: Anterior UTERUS: Normal POSITION: Vertex AMNIOTIC FLUID INDEX: 19.3 cm. HEART RATE: 124 beats per minute. BIOMETRY GA(BPD): 8.01 cm 32 weeks 1 day GA(HC): 29.5 cm 32 weeks 4 days GA(AC): 29.5 cm 33 weeks 3 days GA(FL): 6.21 cm 32 weeks 1 day GA(HL): 5.51 cm 32 weeks 0 days Multiple measurements of the biparietal diameter, head circumference, abdominal circumference, and femur lengt h reveal an estimated weight of 2079 grams. This can be roughl y equated to an ultrasound calculation of HAJA of 11/18/2012. Procedure Note Ramesh Robert M.D. / Provider, Harry will M.D. - 12/02/2016 EXAM: US OB Follow Up or Repeat INDICATION: Growth COMPARISON: 08/14/2012 REFERRING PHYSICIAN: Jakob SCHOOL INSPECTOR: Carmen Oreilly RDMS. : 1 PARA: 0 LMP: 01/28/2012 HAJA by LMP: 11/03/2012 GESTATIONAL AGE: 34 weeks and 5 days. PLACENTAL LOCATION: Anterior UTERUS: Normal POSITION: Vertex AMNIOTIC FLUID INDEX: 19.3 cm. HEART RATE: 124 beats per minute. BIOMETRY GA(BPD): 8.01 cm 32 weeks 1 day GA(HC): 29.5 cm 32 weeks 4 days GA(AC): 29.5 cm 33 weeks 3 days GA(FL): 6.21 cm 32 weeks 1 day GA(HL): 5.51 cm 32 weeks 0 days Multiple measurements of the biparietal diameter, head circumference, abdominal circumference, and femur lengt h reveal an estimated weight of 2079 grams. This can be roughl y equated to an ultrasound calculation of HAJA of 11/18/2012. IMPRESSION: 1. Limited anatomy survey as above . 2. Estimated weight is consistent with the 26 percentile, which is interpreted as appropriate interval g rowth. Carmen Oreilly R.V.T., NadyaSFlex IMG OB US PROCEDURE S documented in this encounter Visit Diagnoses Not on filedocumented in this encounter
--- OUTSIDE RECORDS SUMMARY | 2022-02-22 12:41 | XMS_ITS | Encounter Summary ---
:1985 Author Organization [facility] Address [address] [place] [address] Care Team Providers Name Role Phone Unavailable Primary Care Provider Unavailable Encounter Details Date Type Department Care Team Description 09/14/2012 Hospital Encounter HX [facility] Chidi Douglas [...] at Date Recorded Female 06/09/2021 2:09 PM COSTUME MISTRESS documented as of this encounter Plan of Treatment Not on filedocumented as of this encounter Procedures Procedure Name Priority Date/Time Associated Diagnosis Comme nts US OB FOLLOW UP OR Routine 09/14/2012 8:45 AM Res ults for this REPEAT COSTUME MISTRESS procedure are i n the results section. documented in this encounter Results US OB Follow Up or Repeat (09/14/2012 8:45 AM COSTUME MISTRESS) Anatomical Region Laterality Modality Ultrasound Specimen (Source) Anatomical Collection Method Collection Time Re ceived Time Location / / Volume Laterality 09/14/2012 8:45 AM COSTUME MISTRESS Addenda Addendum by Provider, Pippa Yeung 09/14/2012 8:45 AM COSTUME MISTRESS RAD^^^OW US OB Follow Up or Repeat 09/14/2012 08:45:57 Impressions 09/14/2012 4:30 PM COSTUME MISTRESS 1. Limited anatomy survey as above . 2. Estimated weight is consistent with the 30 percentile of growth, which is interpreted as appropri ate and normal interval growth. Narrative 09/14/2012 4:30 PM COSTUME MISTRESS EXAM: US OB Follow Up or Repeat INDICATION: Growth COMPARISON: None. REFERRING PHYSICIAN: Dr. Jakob Das RURAL MAIL CARRIER: Ariane Haji RDMS. : 1 PARA: 0 LMP: 05/30/2012 HAJA by LMP: 11/03/2012 GESTATIONAL AGE: 32 weeks and 6 days. PLACENTAL LOCATION: Anterior UTERUS: Normal CERVICAL LENGTH: 3.48 cm. ADNEXA: Normal S/D Ratio: N/A POSITION: Vertex AMNIOTIC FLUID INDEX: 19.0 cm. STOMACH: Normal KIDNEYS: Normal BLADDER: Normal HEART: Normal HEART RATE: 130 beats per minute. BIOMETRY GA(BPD): 8.09 cm consistent with 32 week s 3 days GA(HC): 28.9 cm consistent with 31 weeks 5 days GA(AC): 27.8 cm consistent with 31 weeks 6 days GA(FL): 5.75 cm consistent with 30 weeks 0 days GA(HL): 5.18 cm consistent with 30 weeks 1 day Multiple measurements of the biparietal diameter, head circumference, abdominal circumference, and femur lengt h reveal an estimated weight of 1759 grams. This can be roughl y equated to an ultrasound calculation of HAJA of 11/13/2012. Procedure Note Chidi Spears M.D. / Provider, Harry will M.D. - 12/02/2016 EXAM: US OB Follow Up or Repeat INDICATION: Growth COMPARISON: None. REFERRING PHYSICIAN: Dr. Jakob Das RURAL MAIL CARRIER: Ariane Haji RDMS. : 1 PARA: 0 LMP: 05/30/2012 HAJA by LMP: 11/03/2012 GESTATIONAL AGE: 32 weeks and 6 days. PLACENTAL LOCATION: Anterior UTERUS: Normal CERVICAL LENGTH: 3.48 cm. ADNEXA: Normal S/D Ratio: N/A POSITION: Vertex AMNIOTIC FLUID INDEX: 19.0 cm. STOMACH: Normal KIDNEYS: Normal BLADDER: Normal HEART: Normal HEART RATE: 130 beats per minute. BIOMETRY GA(BPD): 8.09 cm consistent with 32 week s 3 days GA(HC): 28.9 cm consistent with 31 weeks 5 days GA(AC): 27.8 cm consistent with 31 weeks 6 days GA(FL): 5.75 cm consistent with 30 weeks 0 days GA(HL): 5.18 cm consistent with 30 weeks 1 day Multiple measurements of the biparietal diameter, head circumference, abdominal circumference, and femur lengt h reveal an estimated weight of 1759 grams. This can be roughl y equated to an ultrasound calculation of HAJA of 11/13/2012. IMPRESSION: 1. Limited anatomy survey as above . 2. Estimated weight is consistent with the 30 percentile of growth, which is interpreted as appropri ate and normal interval growth. Ariane Oreilly R.V.T., NadyaSFlex IMG OB US PROCEDUR ES documented in this encounter Visit Diagnoses Not on filedocumented in this encounter
--- OUTSIDE RECORDS SUMMARY | 2022-02-22 12:41 | XMS_ITS | Encounter Summary ---
:1985 Author Organization [facility] Address [address] [place] [address] Care Team Providers Name Role Phone Unavailable Primary Care Provider Unavailable Encounter Details Date Type Department Care Team Description 01/06/2012 Hospital Encounter HX [facility] Ade Heath M.D. 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 - 01/06/2012 12:00 AM CDT [id number] Preet is a 26-year-old lady who presents today to [facility] care. She moved from [place] to [place] in March of 2011. Prior to that she used to reside in [place]. Preet has history of epilepsy since young years. Currently she is taking carbamazepine 200 mg p.o. in the morning and 400 mg p.o. q.h.s. Patient states that she has been running low on her medication and she has been skipping her dosages. On careful questioning it appears that she had the last seizure 2-1/2 months ago. She did not seek medical attention at that time. She feels that she cannot increase her dose of carbamazepine as it is making her tired. She used to be on Depakote in remote past. She does not recall ever being on Keppra. Patient states that she has not seen neurologist in [place] for at least 2 years. She states that in August of 2010 she was seen in [facility] and her carbamazepine levels were checked and she was told those were normal. Results are not available for my review. Since that time approximately 2-1/2 months ago patient had an episode of seizures. SOCIAL HISTORY Currently patient resides in [place] with her boyfriend. 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 She continues smoking up to 1 pack cigarettes daily. She quit drinking 6 years ago after she was charged with [place]ertado and her license had been revoked. FAMILY HISTORY Patient is adopted, however she knows that her mother has history of alcoholism and seizure disorder. SYSTEMS REVIEW HEAD: Normocephalic, atraumatic. EYES: Denies blurry vision, double vision, photophobia, and conjunctival discharge. ENT: Denies bleeding gums, toothache, and difficulty swallowing. No nasal congestion, sinus pressure sensation, or nasal drainage. Denies hearing changes, tinnitus, and ear discharge. NECK: Denies neck pain and neck stiffness. RESPIRATORY: Denies shortness of breath, cough, and wheezing. CARDIOVASCULAR: Denies chest pain, palpitations, and dyspnea on exertion. GI: Denies nausea, vomiting, abdominal pain, constipation, diarrhea, melena, hematochezia, and weight loss. MUSCULOSKELETAL: Denies pain, swelling, and redness of joints. NEUROLOGIC: Per history of present illness DERMATOLOGIC: Denies skin rashes and denies lesions. PHYSICAL EXAM WEIGHT: 50.4 TEMPERATURE: 36.8 PULSE: 72 RESPIRATIONS: 16 BLOOD PRESSURE: 110/70 GENERAL: Patient is pleasant, in no distress. HEAD: Normocephalic, atraumatic. No deformities. Neck is supple with no lymphadenopathy. HEART: Rate is regular. S1 and S2 present. No rubs, gallops, or murmurs. LUNGS: Good air entry bilaterally. Clear to auscultation bilaterally. No rales, rhonchi, or wheezing appreciated. NEURO: Alert and oriented. Cranial nerves 2 through 12 are grossly intact. Brachial, knee, and Achilles reflexes are intact. Residential Youth Counselor strength is normal bilaterally. Stable in Romberg pose. IMPRESSION / REPORT / PLAN Epilepsy. At this time will obtain carbamazepine level. Refill for carbamazepine 200 mg by mouth every morning and 400 mg by mouth every evening provided. Patient will be notified of test results and will recommend to adjust dose appropriately. Will also help the patient to establish care with a neurologist in [facility], Dr. Donita Ureña. Dr. Ureña's help is greatly appreciated. Tiffanie Heath M.D. zhang Electronically Signed By: TIFFANIE HEATH MD On: 01/09/2012 10:41 AM Source: [facility] MHSDOLBEYNONRADSYS Document Id: [id number] documented in this encounter Nursing Notes Radha Elizalde - 01/06/2012 4:36 PM CDT REFERRAL REFERRAL TO [facility] FOR EPILEPSY SENT TO REFERRAL SCHEDULING. Electronically Signed By: RADHA ELIZALDE On: 01/06/2012 04:37 PM Source: [employer] Document Id: [id number] documented in this encounter Miscellaneous Notes Miscellaneous - Tiffanie Heath M.D. - 01/06/2012 4:45 PM CDT Ambulatory Patient Summary [facility] [address] [place] [id number] Visit Information Name: PREET TURK Current Date: 01/06/2012 16:45:21 Physicians Attending Provider: TIFFANIE HEATH MD Primary Care Provider: LIMA LANCASTER Your Medications Here is a list of [...] Upcoming Appointments Date Time Location Reason Provider 01/09/2012 14:00 [facility] Your Goals/Additional instructions: Source: [employer] Document Id: [id number] Miscellaneous - Tiffanie Heath M.D. - 01/06/2012 4:45 PM CDT Ambulatory Depart Summary [facility] [address] [place] [id number] Visit Information Name: PREET TURK Visit Date: 01/06/2012 16:45:20 Attending Provider: TIFFANIE HEATH MD Primary Care Provider: LIMA LANCASTER CASSANDRA has been given the following list of [...] your provider for clarification. Additional Information: Source: [facility] POWERCHART Document Id: [id number] Miscellaneous - Conversion, Historical Provider Ser - 01/06/2012 3:43 PM CDT Adult Water Resource Consultant Intake/History Adult Water Resource Consultant Intake/History Entered On: 01/06/2012 15:46 CDT Performed On: 01/06/2012 15:43 CDT by STANLEY LINDO Intake Chief Complaint : MED RECHECK Temperature Oral : 36.8C(Converted to: 98.2DegF) Peripheral Pulse Rate : 72/min Respiratory Rate : 16/min Systolic Blood Pressure : 110mmHg Diastolic Blood Pressure : 70mmHg NIBP Mean : 83mmHg BP Location : Right upper extremity Blood Pressure Cuff Size : Regular Actual Weight : 50.4kg(Converted to: 111lb 2oz) Dosing Weight Clinic : 50.40kg STANLEY LINDO 01/06/2012 15:43 CDT General Info Information Given By : Patient Preferred Communication Mode : Verbal Languages : Amharic STANLEY LINDO 01/06/2012 15:43 CDT Subjective Pain Symptoms : No STANLEY LINDO 01/06/2012 15:43 CDT Dependent Habits Tobacco Use/Currently Using : Yes Smoking Status : Current every day smoker STANLEY LIDNO 01/06/2012 15:43 CDT Tobacco Use Grid Type : Cigarettes Cigarette Use Packs/Day : 0.5 STANLEY LINDO 01/06/2012 15:43 CDT Alcohol Use : No STANLEY LINDO 01/06/2012 15:43 CDT Caffeine Use Grid Caffeine Use : Current Type : Coffee, Soft drinks Frequency : Daily Amount : 5 POTS STANLEY LINDO 01/06/2012 15:43 CDT Recreational Drug Use Grid Drug Use : None STANLEY LINDO 01/06/2012 15:43 CDT Allergy Allergies (Active) Vicodin Estimated Onset Date: Unspecified ; Reactions: Hives, Breathing ; Created By: GARRETT JARRELL; Reaction Status: Active ; Category: Drug ; Substance: Vicodin ; Type: Allergy ; Severity: Severe ; Updated By: GARRETT JARRELL; Reviewed Date: 01/06/2012 15:39 CDT Source: [facility] [employer]CHART Document Id: [id number] documented in this encounter Plan of Treatment Not on filedocumented as of this encounter Visit Diagnoses Not on filedocumented in this encounter
--- OUTSIDE RECORDS SUMMARY | 2022-02-22 12:41 | XMS_ITS | Encounter Summary ---
:1985 Author Organization [facility] Address [address] [place] [address] Care Team Providers Name Role Phone Unavailable Primary Care Provider Unavailable Encounter Details Date Type Department Care Team Description 10/19/2011 Hospital Encounter HX NO MAPPING Hernan Ko M.D. [address] [place], [place] [phone] (Wo rk) Social History [...] or relatives? How often do you attend congregation or 1 to 4 times per year 05/18 hinduism services? 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
--- OUTSIDE RECORDS SUMMARY | 2022-02-22 12:41 | XMS_ITS | Encounter Summary ---
:1985 Author Organization [facility] Address [address] [place] [address] Care Team Providers Name Role Phone Unavailable Primary Care Provider Unavailable Encounter Details Date Type Department Care Team Description 09/21/2011 Hospital Encounter HX NO MAPPING Harini Rosado M.D. 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
--- OUTSIDE RECORDS SUMMARY | 2022-02-22 12:41 | XMS_ITS | Encounter Summary ---
:1985 Author Organization [facility] Address [address] [place] [address] Care Team Providers Name Role Phone Unavailable Primary Care Provider Unavailable Encounter Details Date Type Department Care Team Description 08/14/2012 Hospital Encounter HX [facility] Max Robert M.D. 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 - 08/15/2012 3:16 PM CST Results Notification Document Contains Addenda Addendum by YOSI REY on 15 August 2012 15:49:29 SHAKE CUTTER info sent to pt From: MAX ROBERT MD To: LORI Robert Nurse Sent: 08/15/2012 15:16:18 SHAKE CUTTER ! Show up: 08/15/2012 21:16:18 [facility] Subject: Results Notification Actions: Notify patient-refer to General Message Source: [facility] [employer] Document Id: [id number] Electronically signed by Conversion, [facility] Vaccine Customer Representative [id number] at 12/14/2016 8:55 PM CDT documented in this encounter Plan of Treatment Not on filedocumented as of this encounter Procedures Procedure Name Priority Date/Time Associated Comments Diagnosis HEPATIC FUNCTION Routine 08/14/2012 10:56 Results for this PANEL, S AM SHAKE CUTTER procedure are i n the results section. GLUCOSE, GESTATIONAL Routine 08/14/2012 10:56 Res ults for this 1HR, S AM SHAKE CUTTER procedure are i n the results section. CBC WITHOUT Routine 08/14/2012 10:56 Results for this DIFFERENTIAL, B AM SHAKE CUTTER procedure ar e in the results section. CARBAMAZEPINE LEVEL, Routine 08/14/2012 10:56 Res ults for this TOT, S AM SHAKE CUTTER procedure are i n the results section. documented in this encounter Results (ABNORMAL) CBC without Differential (08/14/2012 10:56 AM SHAKE CUTTER) Analysis Performed At Patho logist Time Signature Leukocytes 11.2 (H) 3.4 - 10.5 POWERCHART X109L Erythrocytes 3.93 3.90 - POWERCHART 5.03 [id number] Hemoglobin 11.8 (L) 12.0 - POWERCHART 15.5 GDL Hematocrit 35.3 34.9 - POWERCHART 44.5 MCV 89.8 82.0 - POWERCHART 98.0 FL HX RDW 12.9 11.9 - POWERCHART 15.5 Platelet Count 283 150 - 450 POWERCHART X109L Specimen (Source) Anatomical Collection Method Collection Time Re ceived Time Location / / Volume Laterality Blood 08/14/2012 10:56 AM SHAKE CUTTER Max Robert M.D. LAB BLOOD ADD-ON Performing Organization Address City/State/[facility] Code Phon e Number POWERCHART (ABNORMAL) Hepatic Function Panel (08/14/2012 10:56 AM SHAKE CUTTER) Patholo gist Method Time Signature Total Protein, S 6.4 5.9 - 8.4 POWERCHART GDL Albumin, S 3.3 (L) 3.5 - 5.0 POWERCHART GDL Alkaline 102 (H) 37 - 98 POWERCHART Phosphatase, S UNITL Alanine 12 5 - 45 POWERCHART Amniotransferase, LD UNITL Aspartate 15 8 - 43 POWERCHART Aminotransferase UNITL (AST), S Bilirubin, Total, S 0.4 0.0 - 1.0 POWERCHART MGDL Bilirubin, Direct, S 0.10 <=0.30 POWERCHAR T MGDL HXBili Indirect 0.30 0.00 - POWERCHART 1.00 MGDL Specimen (Source) Anatomical Collection Method Collection Time Re ceived Time Location / / Volume Laterality Blood 08/14/2012 10:56 AM SHAKE CUTTER Max Robert M.D. LAB BLOOD ADD-ON Performing Organization Address City/[facility] Code Phon e Number POWERCHART (ABNORMAL) Carbamazepine Level, Total (08/14/2012 10:56 AM SHAKE CUTTER) P athologist Signature Carbamazepine, 3.7 (L) MCGML POWERCHART Tot, S Comment: -- REFERENCE VALUE -- 4.0 - 12.0 (Toxic > or = 15.0) Test Performed by: [address] [address] Pet Ambassador: Xavi quevedo III, M.D. Specimen (Source) Anatomical Collection Method Collection Time Re ceived Time Location / / Volume Laterality Blood 08/14/2012 10:56 AM SHAKE CUTTER Max Robert M.D. LAB BLOOD ADD-ON Performing Organization Address City/State/ZIP Code Phon e Number POWERCHART Glucose, Gestational 1HR (08/14/2012 10:56 AM SHAKE CUTTER) P athologist Signature HXGlucose 1 Hr 103 70 - 139 POWERCHART OB MGDL Comment: A glucose threshold value >= 14 0mg/dL identifies approximately 80% of women with GDM, and the yield is further incre ased to 90% by using a cutoff of >=130mg/dL. Specimen (Source) Anatomical Collection Method Collection Time Re ceived Time Location / / Volume Laterality Blood 08/14/2012 10:56 AM SHAKE CUTTER Max Robert M.D. LAB BLOOD ADD-ON Performing Organization Address City/State/ZIP Code Phon e Number POWERCHART documented in this encounter Visit Diagnoses Not on filedocumented in this encounter
--- OUTSIDE RECORDS SUMMARY | 2022-02-22 12:42 | XMS_ITS | Encounter Summary ---
:1985 Author Organization [facility] Address [address] [place] [address] Care Team Providers Name Role Phone Unavailable Primary Care Provider Unavailable Encounter Details Date Type Department Care Team Description 12/16/2002 Hospital Encounter HX [facility] Erick Wren M.D. 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
== END 2022-01-27 14:32 | disposition home or self-care (01) ==
LOC: MRI 14:36
PROVIDERS: Visit Provider Physician Assistant
DX: M25.572 Pain in left ankle and joints of left foot (principal); S93.412A Sprain of calcaneofibular ligament of left ankle, initial encounter; S93.492A Sprain of other ligament of left ankle, initial encounter; S93.422A Sprain of deltoid ligament of left ankle, initial encounter; M25.472 Effusion, left ankle; M65.872 Other synovitis and tenosynovitis, left ankle and foot
CPT/HCPCS: 73721